=== PATIENT | male | born 1990 | race Caucasian/White ===

== ENCOUNTER 2016-09-15 17:59 | Inpatient (IN) | payer MEDICARE, OTHER ==
[~2016-09-15] VITALS: Ht 175.3 cm; Wt 85.0 kg
[~2016-09-15 17:59] MED LIST: OXYC30TA PO; [UNRECOGNIZED DRUG - CODE] INJ; [UNRECOGNIZED DRUG - CODE] IV; [UNRECOGNIZED DRUG - OTHER] INJ
[2016-09-15 18:02] VITALS: PULSE 126; RESP 24; TEMP 98.5; O2SAT 95
[2016-09-15 18:08] VITALS: BP 118/80
[2016-09-15] MEDS ORDERED: SODIUM CHLOR 0.9% 1000 ML INJ 1,000 ML IV SCH (18:31)
[2016-09-15] MEDS ORDERED: SODIUM CHLORIDE 0.9% FLUSH 5 ML FLUSH IVF PRN (18:45)
[2016-09-15] MEDS ORDERED: MORPHINE SULFATE 8 MG/ML INJ IV PUSH ONE (18:45)
[2016-09-15] MEDS ORDERED: ANTI-INHIBITOR COAGULANT COMPLEX 100 UNIT INJ IV ONE ×2 (19:00→19:45)
[2016-09-15] MEDS ORDERED: FACTOR VIIA (RECOMB) 5 MG VIAL IV PUSH ONE (19:00)
[2016-09-15] MEDS ORDERED: FACTOR VIIA (RECOMB) 1 MG VIAL IV PUSH ONE (19:00)
[2016-09-15] MEDS ORDERED: ALPR.25 PO (19:18)
[2016-09-15 19:25] VITALS: RESP 18; O2SAT 98
--- NOTE | 2016-09-15 20:30 | RADRPT ---
EXAM DATE/TIME: 09/15/2016 19:50 [facility] COMPARISON: No previous studies available for comparison. INDICATIONS : Short of breath. MEDICAL HISTORY : None. SURGICAL HISTORY : Port placement ENCOUNTER: Initial ACUITY: 1 day PAIN SCORE: 5/10 LOCATION: Bilateral chest FINDINGS: A single view of the chest demonstrates the lungs to be symmetrically aerated without evidence of mas s, infiltrate or effusion. The cardiomediastinal contours are unremarkable. Osseous structures are intact. There is a right internal jugular [id number] catheter with tip at the atriocaval junction. CONCLUSION: No evidence of acute cardiopulmonary disease. Ulysses Chowdhury MD on September 15, 2016 at 20:27 Board Certified Radiologist. This report was verified electronically.
[2016-09-15 20:52] LABS: BLOOD, URINE NEG (NEG); COMMENT (UR) CULT NOT INDICATED; CULTURE IF INDICATED CULT NOT INDICATED; GLUCOSE,URINE NEG (NEG); KETONE, URINE NEG (NEG); MUCUS URINE FEW /lpf (OCC); NITRITE,URINE NEG (NEG); SQUAMOUS EPITHELIAL CELL URINE <1 /hpf (0-5); URINE COLOR YELLOW (YELLW/STRAW)
[2016-09-15 20:58] LABS: AUTOMATED NEUTROPHIL # 8.2 TH/MM3 (1.8-7.7); BASOPHIL % 0.2 % (0.0-2.0); EOSINOPHIL # 0.3 TH/MM3 (0-0.4); EOSINOPHIL % 2.7 % (0.0-4.0); HEMATOCRIT 40.2 % (39.0-51.0); HEMO FLAGS DIFF FINAL; LYMPH % 14.7 % (9.0-44.0); LYMPHOCYTE # 1.6 TH/MM3 (1.0-4.8); MEAN CELL VOLUME 87.2 FL (80.0-100.0); MEAN CORPUSCULAR HEMOGLOBIN 30.3 PG (27.0-34.0); MEAN CORPUSCULAR HGB CONC 34.7 % (32.0-36.0); MONO % 7.5 % (0.0-8.0); NEUT % 74.9 % (16.0-70.0); PLATELET COUNT 233 TH/MM3 (150-450); RED BLOOD COUNT 4.61 MIL/MM3 (4.50-5.90); RED CELL DISTRIBUTION WIDTH 14.8 % (11.6-17.2); WHITE BLOOD COUNT 10.9 TH/MM3 (4.0-11.0)
[2016-09-15] MEDS: MORPHINE SULFATE 100 MG CONTROLLED RELEASE TAB PO SCH (21:00)
[2016-09-15 21:03] LABS: ANION GAP 7 MEQ/L (5-15); AST (GOT) 12 U/L (15-37); BICARBONATE 28.3 MEQ/L (21.0-32.0); BLOOD UREA NITROGEN 8 MG/DL (7-18); CHLORIDE 103 MEQ/L (98-107); GLOMERULAR FILTRATION RATE 185 ML/MIN (>89); POTASSIUM 3.6 MEQ/L (3.5-5.1); SODIUM (NA) 138 MEQ/L (136-145)
[2016-09-15 21:08] LABS: ALKALINE PHOSPHATASE 116 U/L (45-117); ALT (GPT) 31 U/L (12-78); TOTAL BILIRUBIN ADULT 0.8 MG/DL (0.2-1.0)
[2016-09-15] MEDS ORDERED: HYDROmorphone HCL PF 2 MG/ML VIAL IV PUSH ONE (21:15)
[2016-09-15] MEDS ORDERED: IOHEXOL 350 MG/ML 10 ML VIAL (for RAD DIAG) IV ONE (21:46)
--- NOTE | 2016-09-15 21:59 | RADRPT ---
EXAM DATE/TIME: 09/15/2016 21:30 [facility] COMPARISON: No previous studies available for comparison. INDICATIONS : Right lower back and hip pain. Evaluate for hemorrhage. IV CONTRAST: 95 cc Omnipaque 350 (iohexol) IV ORAL CONTRAST: No oral contrast ingested. RADIATION DOSE: 9.96 CTDIvol (mGy) MEDICAL HISTORY : Hemophilia SURGICAL HISTORY : None. ENCOUNTER: Initial ACUITY: 3 days PAIN SCALE: 8/10 LOCATION: Right lower quadrant back and hip TECHNIQUE: Volumetric scanning of the abdomen and pelvis was performed. Using automated exposure control and ad justment of the mA and/or kV according to patient size, radiation dose was kept as low as reasonably achievable to obtain optimal diagnostic quality images. FINDINGS: LOWER LUNGS: The visualized lower lungs are clear. LIVER: Homogeneous density without lesion. There is no dilation of the biliary tree. No calcified gallston es. SPLEEN: Normal size without lesion. PANCREAS: Within normal limits. KIDNEYS: Normal in size and shape. There is no mass, stone or hydronephrosis. ADRENAL GLANDS: Within normal limits. VASCULAR: There is no aortic aneurysm. BOWEL/MESENTERY: The stomach, small bowel, and colon demonstrate no acute abnormality. There is no free intraperitone al air or fluid. ABDOMINAL WALL: Within normal limits. RETROPERITONEUM: There is no lymphadenopathy. BLADDER: No wall thickening or mass. REPRODUCTIVE: Within normal limits. INGUINAL: There is no lymphadenopathy or hernia. MUSCULOSKELETAL: Disc space narrowing with osseous ridging and suspected left lateral ankylosis seen in the lumbar spi ne at L4/L5. The severe, chronic arthropathy seen of the right hip joint and with a 2 cm anterior sveta nt body and large marginal osteophytes. There is flattening/remodeling of the humeral head and acetab ulum. CONCLUSION: 1. No acute abnormality seen within the abdomen or pelvis. 2. Chronic disc centered degenerative changes at L4/L5. There is associated prominent left anterolate ral osseous ridging and probable partial ankylosis. 3. Severe right hip osteoarthritis with a joint body. The arthropathy appears chronic. It may be rela caitie to AVN/childhood [id number] or be posttraumatic. 4. I don't see an acute bony abnormality. Ulysses Chowdhury MD on September 15, 2016 at 21:54 Board Certified Radiologist. This report was verified electronically.
--- NOTE | 2016-09-15 22:14 | PD ---
HPI Chief Complaint: Bleeding Time Seen by Provider: 18:14 Travel History International Travel<30 days: No Contact w/Intl Traveler<30days: No Traveled to known affect area: No History of Present Illness HPI patient is a 26-year-old male presents emergency department for evaluation of left knee swelling left hand bruising anterior chest wall bruising abdominal pain. 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 Patient is followed by Dr. Anne hematology oncology service. Patient is on Feiba 7500 units every 24 hours as well as NovoSeven 10 mg every 24 hours for prophylaxis. When his bleeding worsens he takes NovoSeven 10 mg every 4 hours and Feiba 7500 units every 8 hours. Patient is been doing this for the past 2-1/2 days. His last dose of NovoSeven was at noon prior to arrival and his last dose of Feiba was at 2200 last night. Patient also relates a history of having a hematoma on his psoas muscle and is concerned that it might be coming back. Denies any blood in the urine. Denies any hand injury. Has a history of hemarthrosis of the left knee. PFSH Past Medical History Arthritis: Yes Blood Disorders: Yes (HEMOPHILIA A ) Diminished Hearing: No Tetanus Vaccination: > 5 Years Influenza Vaccination: No Past Surgical History Other Surgery: Yes (MEDIPORT, I&D LEFT KNEE ) Social History Alcohol Use: No Tobacco Use: Yes (1 PPD ) Substance Use: No Allergies-Medications (Allergen,Severity, Reaction): Coded Allergies: Nonsteroidal Anti-Inflammatory Agts (Verified Adverse Reaction, Severe, bleeding, 09/15/16) Reported Meds & Prescriptions Reported Meds & Active Scripts Active Oxycodone (Oxycodone HCl) 30 Mg Tab 30 Mg PO Q12 PRN Novoseven Rt Inj (Factor VIIa (Recombinant)) 1 Mg Inj 10 Mcg IV EVERY OTHER DAY 12 Days Reported Xanax (Alprazolam) 0.25 Mg Tab 0.25 Mg PO BID PRN Feiba NF Inj (Antiinhibitor Coagulant Complex Inj) 500 Units Inj 7,342 Units INJ EVERY OTHER DAY Review of Systems Except as stated in HPI: all other systems reviewed are Neg Physical Exam Narrative GENERAL: Well-developed well-nourished appears uncomfortable. SKIN: Warm and dry. HEAD: Atraumatic. Normocephalic. EYES: Pupils equal and round. No scleral icterus. No injection or drainage. ENT: No nasal bleeding or discharge. Mucous membranes pink and moist. NECK: Trachea midline. No JVD. CARDIOVASCULAR: Regular rate and rhythm. No murmur appreciated. Right-sided port is clean dry and intact no signs of infection. RESPIRATORY: No accessory muscle use. Clear to auscultation. Breath sounds equal bilaterally. GASTROINTESTINAL: Abdomen soft, non-tender, nondistended. Hepatic and splenic margins not palpable. MUSCULOSKELETAL: Patient has some nonspecific and mild swelling and bruising to the dorsum of the left hand, pulses motor and sensory intact, compartments are soft, he is able to range his fingers and flexion and extension at all joints albeit with some limitation secondary to pain and swelling. Right hand is normal. Remainder of the upper extremity exam is within normal limits. Patient has joint effusion of the left knee with midline surgical scar, remainder of the lower extremity exams are within normal limits. Axial skeleton shows no midline tenderness at CT or L-spine. Patient does have some ecchymosis on the anterior chest wall the right side. NEUROLOGICAL: Awake and alert. No obvious cranial nerve deficits. Motor grossly within normal limits. Normal speech. PSYCHIATRIC: Appropriate mood and affect; insight and judgment normal. Data Data Last Documented VS Vital Signs Date Time Temp Pulse Resp B/P Pulse Ox O2 Delivery O2 Flow Rate FiO2 09/15/16 19:26 101 18 98 Room Air 09/15/16 18:08 118/80 09/15/16 18:02 98.5 Orders Complete Blood Count With Diff (09/15/16 18:31) Comprehensive Metabolic Panel (09/15/16 18:31) Lipase (09/15/16 18:31) Lactic Acid (09/15/16 18:31) Prothrombin Time / Inr (Pt) (09/15/16 18:31) Act Partial Throm Time (Ptt) (09/15/16 18:31) Urinalysis - C+S If Indicated (09/15/16 18:31) Ct Abd/Pel W Iv Contrast(Rout) (09/15/16 18:31) Iv Access Insert/Monitor (09/15/16 18:31) Ecg Monitoring (09/15/16 18:31) Oximetry (09/15/16 18:31) Sodium Chlor 0.9% 1000 Ml Inj (Ns 1000 M (09/15/16 18:31) Sodium Chloride 0.9% Flush (Ns Flush) (09/15/16 18:45) Morphine Inj (Morphine Inj) (09/15/16 18:45) Factor Viia (Recomb) Inj (Novoseven Rt I (09/15/16 19:00) Anti-Inhibitor Coag Cmplx Inj (Feiba Nf (09/15/16 19:00) Factor Viia (Recomb) Inj (Novoseven Rt I (09/15/16 19:00) Chest, Single Ap (09/15/16 ) Anti-Inhibitor Coag Cmplx Inj (Feiba Nf (09/15/16 19:45) Morphine Sr (Oramorph Sr) (09/15/16 21:00) Oxycodone (Roxicodone) (09/15/16 20:15) Alprazolam (Xanax) (09/15/16 22:00) Hydromorphone Pf Inj (Dilaudid Pf Inj) (09/15/16 21:15) Consult Hematology (09/15/16 ) Iohexol 350 Inj (Omnipaque 350 Inj) (09/15/16 21:46) Vital Signs (Adult) Q4H (09/15/16 22:08) Activity Oob With Assistance (09/15/16 22:08) [employer] Operator / Telemetry .CONTINUOUS (09/15/16 22:08) Diet Heart Healthy (09/16/16 Breakfast) Sodium Chloride 0.9% Flush (Ns Flush) (09/15/16 22:15) Sodium Chloride 0.9% Flush (Ns Flush) (09/16/16 09:00) Basic Metabolic Panel (Bmp) (09/16/16 06:00) Complete Blood Count With Diff (09/16/16 06:00) Pt Request For Service (09/15/16 22:08) Naloxone Inj (Narcan Inj) (09/15/16 22:15) Place In Observation (09/15/16 ) Admit Order (Ed Use Only) (09/15/16 ) Labs Laboratory Tests Test 09/15/16 09/15/16 09/15/16 20:00 20:15 22:00 Urine Color YELLOW Urine Turbidity CLEAR Urine pH 7.0 Urine Specific [place] 1.016 Urine Protein NEG mg/dL Urine Glucose (UA) NEG mg/dL Urine Ketones NEG mg/dL Urine Occult Blood NEG Urine Nitrite NEG Urine Bilirubin NEG Urine Urobilinogen LESS THAN 2.0 MG/DL Urine Leukocyte Esterase NEG Urine RBC LESS THAN 1 /hpf Urine WBC LESS THAN 1 /hpf Urine Squamous Epithelial <1 /hpf Cells Urine Amorphous Sediment RARE Urine Mucus FEW /lpf Microscopic Urinalysis Comment CULT NOT INDICATED White Blood Count 10.9 TH/MM3 Red Blood Count 4.61 MIL/MM3 Hemoglobin 13.9 GM/DL Hematocrit 40.2 % Mean Corpuscular Volume 87.2 FL Mean Corpuscular Hemoglobin 30.3 PG Mean Corpuscular Hemoglobin 34.7 % Concent Red Cell Distribution Width 14.8 % Platelet Count 233 TH/MM3 Mean Platelet Volume 7.9 FL Neutrophils (%) (Auto) 74.9 % Lymphocytes (%) (Auto) 14.7 % Monocytes (%) (Auto) 7.5 % Eosinophils (%) (Auto) 2.7 % Basophils (%) (Auto) 0.2 % Neutrophils # (Auto) 8.2 TH/MM3 Lymphocytes # (Auto) 1.6 TH/MM3 Monocytes # (Auto) 0.8 TH/MM3 Eosinophils # (Auto) 0.3 TH/MM3 Basophils # (Auto) 0.0 TH/MM3 CBC Comment DIFF FINAL Differential Comment Sodium Level 138 MEQ/L Potassium Level 3.6 MEQ/L Chloride Level 103 MEQ/L Carbon Dioxide Level 28.3 MEQ/L Anion Gap 7 MEQ/L Blood Urea Nitrogen 8 MG/DL Creatinine 0.54 MG/DL Estimat Glomerular Filtration 185 ML/MIN Rate Random Glucose 84 MG/DL Lactic Acid Level 0.6 mmol/L Calcium Level 8.9 MG/DL Total Bilirubin 0.8 MG/DL Aspartate Amino Transf 12 U/L (AST/SGOT) Alanine Aminotransferase 31 U/L (ALT/SGPT) Alkaline Phosphatase 116 U/L Total Protein 6.9 GM/DL Albumin 3.9 GM/DL Lipase 66 U/L Prothrombin Time 7.9 SEC Prothromb Time International 0.7 RATIO Ratio Activated Partial 68.8 SEC Thromboplast Time MDM Medical Decision Making Medical Screen Exam Complete: Yes Emergency Medical Condition: Yes Differential Diagnosis Hemophilia A, hemarthrosis, intra-abdominal bleeding, abdominal pain, Narrative Course Patient is a 26-year-old male with a history of hemophilia A presents for a 2-1/ 2 day history of swelling to his left knee as well as abdominal pain. Patient normally takes his prophylaxis for his hemophilia Feiba 7500 units every 24 hours and NovoSeven 10 mg every 24 hours. Last 24 hours Impressions Abdomen/Pelvis CT 09/15/16 1831 Signed Impressions: Service Date/Time: Thursday, September 15, 2016 21:30 - CONCLUSION: 1. No acute abnormality seen within the abdomen or pelvis. 2. Chronic disc centered degenerative changes at L4/L5. There is associated prominent left anterolateral osseous ridging and probable partial ankylosis. 3. Severe right hip osteoarthritis with a joint body. The arthropathy appears chronic. It may be related to AVN/childhood [id number]-[id number] or be posttraumatic. 4. I don't see an acute bony abnormality. Ulysses Chowdhury MD Chest X-Ray 09/15/16 0000 Signed Impressions: Service Date/Time: Thursday, September 15, 2016 19:50 - CONCLUSION: No evidence of acute cardiopulmonary disease. Ulysses Chowdhury MD For the past 2-1/2 days patient's been taken NovoSeven 10 mg every 4 hours and Feiba 7500 units every 8 hours. Patient was discussed with Dr. Dominguez who recommends continuing NovoSeven 10 mg every 4 hours and increasing Feiba to [address] Dominguez agrees with admission. Patient was discussed with Dr. Loza per Diagnosis Primary Impression: Abdominal pain Qualified Code: R10.11 - Right upper quadrant abdominal pain Additional Impressions: Hemarthrosis Hemophilia A Admitting Information Admitting Physician Requests: Admit Condition: Stable Jigar Pantoja MD Sep 15, 2016 22:14
[2016-09-15] MEDS ORDERED: NALOXONE HCL 0.4 MG/ML AMP IV PRN (22:15)
[2016-09-15] MEDS ORDERED: SODIUM CHLORIDE 0.9% FLUSH 5 ML FLUSH FLUSH PRN (22:15)
[2016-09-15] MEDS: ALPRAZolam 0.5 MG TAB PO SCH (22:16)
[2016-09-15 23:19] LABS: APTT (PATIENT) 68.8 SEC (24.3-30.1); INTERNATIONAL NORMALIZED RATIO 0.7 RATIO; PROTHROMBIN TIME - PATIENT 7.9 SEC (9.8-11.6)
[2016-09-16] VITALS (8 sets, daily range): BP systolic 113–145; BP diastolic 60–103; PULSE 82–100; RESP 17–20; TEMP 96.4–98.1; O2SAT 96–99
[2016-09-16] MEDS ORDERED: HYDROmorphone HCL PF 1 MG/ML VIAL IV PUSH ONE ×2 (00:15→21:30)
[2016-09-16] MEDS ORDERED: HYDROmorphone HCL PF 1 MG/ML VIAL IV PUSH PRN (01:30)
--- NOTE | 2016-09-16 05:23 | HHI.HP ---
[facility] No Primary Care Physician Admission Diagnosis Hemophilia A, Hemarthrosis. Diagnoses: (1) Hemophilia A (2) Hemarthrosis (3) History of stomach ulcers Chief Complaint: joint pain and swelling Travel History International Travel<30 Days: No Contact w/Intl Traveler <30 Da: No Traveled to Known Affected Are: No History of Present Illness Mr. Gonzalez is a 26-year-old male with past medical history of hemophilia A with intolerance to factor VIII replacement and arthritis who presents to the emergency room on 09/15/2016 for evaluation of left knee pain/swelling, left ankle pain/swelling, right hip pain/swelling, and right lower back pain and swelling. Abdomen/pelvis CT with no acute abnormalities seen; chronic disc centered changes at L4/L5; severe right hip osteoarthritis. The patient is seen in his hospital room. He complains of severe right hip, left knee, and left ankle pain with swelling. He had been medicated with Dilaudid 1 mg IV approximately 30 minutes prior to arrival without relief. Pain level is 10 out of 10. He has admitted tolerance to opioids due to the long-standing nature of his chronic pain and necessitating increasing opioid doses for management. He is very familiar and knowledgeable with his disease process and treatment and states he knows how he feels when he is "bleeding into his joints" and this is how he feels currently. He states that symptoms have been going on over the past 3 days. He reports chronic smoker's cough per patient; denies hemoptysis, epistaxis, hematuria, bloody or black stools. He denies fevers, shortness of breath. He denies diabetes mellitus, hypertension, cardiac problems, breathing problems , liver or kidney problems, hepatitis, thyroid dysfunction, seizures, or cancers. Review of Systems Except as stated in HPI: all other systems reviewed are Neg Past Family Social History Past Medical History Hemophilia A with intolerance to factor VIII replacement Arthritis Hemarthrosis related to degenerative joint disease Anxiety Stomach ulcers . Past Surgical History 3 [id number] placed Compartment syndrome fasciotomy right forearm Left femoral fracture with ORIF 2010 Left knee radiation synovectomy in 2000 I & D knee . Reported Medications Reported Meds & Active Scripts Active Oxycodone (Oxycodone HCl) 30 Mg Tab 30 Mg PO Q12 PRN Novoseven Rt Inj (Factor VIIa (Recombinant)) 1 Mg Inj 10 Mcg IV EVERY OTHER DAY 12 Days Reported Xanax (Alprazolam) 0.25 Mg Tab 0.25 Mg PO BID PRN Feiba NF Inj (Antiinhibitor Coagulant Complex Inj) 500 Units Inj 7,342 Units INJ EVERY OTHER DAY . Allergies: Coded Allergies: Nonsteroidal Anti-Inflammatory Agts (Verified Adverse Reaction, Severe, bleeding, 09/15/16) Active Ordered Medications Current Medications Sodium Chloride (NS 1000 ml Inj) 1,000 ml @ 1,000 mls/hr Q1H IV Last administered on 09/15/16 18:31; Start 09/15/16 at 18:31; Stop 09/15/16 at 19:30 ; Status DC IV Flush (NS Flush) 2 ml UNSCH PRN IVF FLUSH AFTER USING IV ACCESS; Start 09/15 at 18:45 Morphine Sulfate (Morphine Inj) 5 mg ONCE ONCE IV PUSH Last administered on 18:45; Start 09/15/16 at 18:45; Stop 09/15/16 at 18:46; Status DC Factor VII (Pha) (Novoseven Rt Inj) 10 mg ONCE ONCE IV PUSH ; Start 09/15/16 at 19:00; Stop 09/15/16 at 19:00; Status DC Anti-Inhibitor Coagulant Complex (Feiba Nf Inj) 15,000 units ONCE ONCE IV ; Start 09/15/16 at 19:00; Stop 09/15/16 at 19:41; Status DC Factor VII (Pha) (Novoseven Rt Inj) 10 mg ONCE ONCE IV PUSH Last administered on 09/15/16 20:43; Start 09/15/16 at 19:00; Stop 09/15/16 at 19:01; Status DC Anti-Inhibitor Coagulant Complex (Feiba Nf Inj) 7,500 units ONCE ONCE IV Last administered on 09/15/16 19:45; Start 09/15/16 at 19:45; Stop 09/15/16 at 19:46 ; Status DC Morphine Sulfate (Oramorph Sr) 100 mg Q12HR PO Last administered on 09/15/16 21:00; Start 09/15/16 at 21:00 Oxycodone HCl (Roxicodone) 30 mg Q4H PRN PO PAIN SCALE 4 TO 10 Last administered on 09/16/16 01:59; Start 09/15/16 at 20:15 Alprazolam (Xanax) 0.5 mg Q8HR PO Last administered on 09/15/16 22:16; Start 09/15/16 at 22:00 Hydromorphone HCl (Dilaudid Pf Inj) 2 mg ONCE ONCE IV PUSH Last administered on 09/15/16 21:20; Start 09/15/16 at 21:15; Stop 09/15/16 at 21:16; Status DC Iohexol (Omnipaque 350 Inj) 100 ml STK-MED ONCE IV Last administered on 21:46; Start 09/15/16 at 21:46; Stop 09/15/16 at 21:47; Status DC IV Flush (NS Flush) 2 ml UNSCH PRN FLUSH FLUSH AFTER USING IV ACCESS; Start at 22:15 IV Flush (NS Flush) 2 ml BID FLUSH ; Start 09/16/16 at 09:00 Naloxone HCl (Narcan Inj) 0.4 mg UNSCH PRN IV SEE LABEL COMMENTS; Start at 22:15 Hydromorphone HCl (Dilaudid Pf Inj) 1 mg ONCE ONCE IV PUSH Last administered on 09/16/16 00:42; Start 09/16/16 at 00:15; Stop 09/16/16 at 00:16; Status DC Hydromorphone HCl (Dilaudid Pf Inj) 1 mg Q4H PRN IV PUSH breakthrough pain Last administered on 09/16/16 04:35; Start 09/16/16 at 01:30; Stop 09/16/16 at 05:16; Status DC Nicotine (Nicotine Gum) 4 mg Q3HR PRN CHEW nicotine withdrawal; Start 09/16/16 at 01:30 Factor VII (Pha) (Novoseven Rt Inj) 10 mg Q4H IV PUSH ; Start 09/16/16 at 05:15 ; Status UNV Anti-Inhibitor Coagulant Complex (Feiba Nf Inj) 7,500 units Q6HR IV ; Start at 06:00; Status UNV Hydromorphone HCl (Dilaudid Pf Inj) 2 mg Q3HR PRN IV PUSH breakthrough pain; Start 09/16/16 at 05:25; Status UNV . Family History Patients mother is alive Patients father is alive 4/6 brothers with severe hemophilia A; one age 1818 years old - HIV/ Hemophilia; one other from brain hemorrhage . Social History Tobacco: Smokes 1 pack per day x 10 years Alcohol: occasionally Illicit Drugs: Denies Patient is originally from [facility] and relocated to [place] in the early part of June 2016 . Physical Exam Vital Signs Vital Signs Date Time Temp Pulse Resp B/P Pulse Ox O2 Delivery O2 Flow Rate FiO2 09/16/16 02:59 18 09/16/16 01:11 18 09/16/16 00:50 97.0 97 20 135/103 98 09/16/16 00:42 88 145/60 100 09/16/16 00:16 20 09/15/16 19:26 101 18 98 Room Air 09/15/16 19:25 18 98 Room Air 09/15/16 18:08 118/80 09/15/16 18:02 98.5 126 24 95 Room Air Physical Exam GENERAL: This is a well-nourished, well-developed patient, in no apparent distress. SKIN: No rashes or lesions. Cool and dry. Multiple tattoos on torso. HEAD: Atraumatic. Normocephalic. EYES: No scleral icterus. No injection or drainage. ENT: Nose without bleeding, purulent drainage. NECK: Trachea midline. No JVD or lymphadenopathy. CARDIOVASCULAR: Regular rate and rhythm without murmurs, gallops, or rubs. RESPIRATORY: Clear to auscultation. Breath sounds equal bilaterally. No wheezes , rales, or rhonchi. GASTROINTESTINAL: Abdomen soft, non-tender, nondistended. No guarding. MUSCULOSKELETAL: Extremities without clubbing, cyanosis. Swelling noted from left knee down to left ankle; right hip pain and swelling; slight swelling right lower back/painful NEUROLOGICAL: Awake and alert. Motor and sensory grossly within normal limits. Normal speech. . Laboratory Laboratory Tests Test 09/15/16 09/15/16 09/15/16 20:00 20:15 22:00 Urine Color YELLOW Urine Turbidity CLEAR Urine pH 7.0 Urine Specific [place] 1.016 Urine Protein NEG Urine Glucose (UA) NEG Urine Ketones NEG Urine Occult Blood NEG Urine Nitrite NEG Urine Bilirubin NEG Urine Urobilinogen LESS THAN 2.0 Urine Leukocyte Esterase NEG Urine RBC LESS THAN 1 Urine WBC LESS THAN 1 Urine Squamous Epithelial <1 Cells Urine Amorphous Sediment RARE Urine Mucus FEW Microscopic Urinalysis Comment CULT NOT INDICATED White Blood Count 10.9 Red Blood Count 4.61 Hemoglobin 13.9 Hematocrit 40.2 Mean Corpuscular Volume 87.2 Mean Corpuscular Hemoglobin 30.3 Mean Corpuscular Hemoglobin 34.7 Concent Red Cell Distribution Width 14.8 Platelet Count 233 Mean Platelet Volume 7.9 Neutrophils (%) (Auto) 74.9 Lymphocytes (%) (Auto) 14.7 Monocytes (%) (Auto) 7.5 Eosinophils (%) (Auto) 2.7 Basophils (%) (Auto) 0.2 Neutrophils # (Auto) 8.2 Lymphocytes # (Auto) 1.6 Monocytes # (Auto) 0.8 Eosinophils # (Auto) 0.3 Basophils # (Auto) 0.0 CBC Comment DIFF FINAL Differential Comment Sodium Level 138 Potassium Level 3.6 Chloride Level 103 Carbon Dioxide Level 28.3 Anion Gap 7 Blood Urea Nitrogen 8 Creatinine 0.54 Estimat Glomerular Filtration 185 Rate Random Glucose 84 Lactic Acid Level 0.6 Calcium Level 8.9 Total Bilirubin 0.8 Aspartate Amino Transf 12 (AST/SGOT) Alanine Aminotransferase 31 (ALT/SGPT) Alkaline Phosphatase 116 Total Protein 6.9 Albumin 3.9 Lipase 66 Prothrombin Time 7.9 Prothromb Time International 0.7 Ratio Activated Partial 68.8 Thromboplast Time Result Diagram: 09/15/16201409/15/162014 Imaging Last Impressions Abdomen/Pelvis CT 09/15/16 1831 Signed Impressions: Service Date/Time: Thursday, September 15, 2016 21:30 - CONCLUSION: 1. No acute abnormality seen within the abdomen or pelvis. 2. Chronic disc centered degenerative changes at L4/L5. There is associated prominent left anterolateral osseous ridging and probable partial ankylosis. 3. Severe right hip osteoarthritis with a joint body. The arthropathy appears chronic. It may be related to AVN/childhood [id number]-[id number] or be posttraumatic. 4. I don't see an acute bony abnormality. Ulysses Chowdhury MD Chest X-Ray 09/15/16 0000 Signed Impressions: Service Date/Time: Thursday, September 15, 2016 19:50 - CONCLUSION: No evidence of acute cardiopulmonary disease. Ulysses Chowdhury MD . Assessment and Plan Problem List: (1) Hemophilia A ICD Code: D66 Status: Acute (2) Hemarthrosis ICD Code: M25.00 Status: Acute (3) History of stomach ulcers ICD Code: Z87.19 Status: Resolved Assessment and Plan Hemarthrosis Hemophilia A - consult Dr. Harris - Dilaudid 2 mg IV every 3 hours as needed for pain - Dr. Harris has continued patients home pain medications - Vital signs every 4 hours - Novoseven 10 mg IV q4h - to be started 09/17 at midnight alternated with: - Feiba 7500 units IV q6h started today Tobacco abuse - Counseled regarding cessation - Nicotine gum every 3 hours as needed for nicotine withdrawal History of stomach ulcers - Added Protonix 40 mg by mouth daily Written by Linette Baxter, acting as scribe for Dr. Diane on 09/16/16 at 05:10. The documentation accurately reflects the work performed [id number] by me on at 0510 Discussed Condition With ER physician, RN, and patient . Linette Baxter Sep 16, 2016 05:23 Ramin Diane MD Sep 16, 2016 08:38
[2016-09-16] MEDS: ALPRAZolam 0.5 MG TAB PO SCH ×3 (05:32→20:43)
[2016-09-16] MEDS: HYDROmorphone HCL PF 1 MG/ML VIAL IV PUSH PRN ×4 (05:32→21:36)
[2016-09-16] MEDS: NICOTINE 4 MG/GUM CHEW PRN ×2 (05:43→08:21)
[2016-09-16] MEDS ORDERED: FACTOR VIIA (RECOMB) 1 MG VIAL IV PUSH SCH (06:00)
[2016-09-16] MEDS ORDERED: ANTI-INHIBITOR COAGULANT COMPLEX 100 UNIT INJ IV SCH (07:00)
[2016-09-16 07:34] LABS: BASOPHIL % 0.4 % (0.0-2.0); EOSINOPHIL # 0.4 TH/MM3 (0-0.4); EOSINOPHIL % 3.8 % (0.0-4.0); HEMATOCRIT 39.8 % (39.0-51.0); HEMO FLAGS DIFF FINAL; LYMPHOCYTE # 2.8 TH/MM3 (1.0-4.8); MEAN CELL VOLUME 88.8 FL (80.0-100.0); MEAN CORPUSCULAR HEMOGLOBIN 30.1 PG (27.0-34.0); MEAN CORPUSCULAR HGB CONC 33.9 % (32.0-36.0); MONO % 8.7 % (0.0-8.0); NEUT % 59.1 % (16.0-70.0); PLATELET COUNT 212 TH/MM3 (150-450); RED BLOOD COUNT 4.48 MIL/MM3 (4.50-5.90); RED CELL DISTRIBUTION WIDTH 14.6 % (11.6-17.2); WHITE BLOOD COUNT 10.1 TH/MM3 (4.0-11.0)
[2016-09-16 08:00] LABS: BICARBONATE 28.7 MEQ/L (21.0-32.0); POTASSIUM 3.9 MEQ/L (3.5-5.1)
[2016-09-16] MEDS: MORPHINE SULFATE 100 MG CONTROLLED RELEASE TAB PO SCH ×2 (08:05→20:44)
[2016-09-16] MEDS: PANTOPRAZOLE SOD 40 MG DELAYED RELEASE TAB PO SCH (08:05)
--- NOTE | 2016-09-16 08:15 | PD.ONC.PN ---
Subjective Subjective Remarks Reports severe pain in the left knee, right hip and right flank. Last factor dose was FEIBA 7500 units last night. Pain continues. CT abdomen reviewed, no measurable bleed. Hemoglobin and hematocrit were noted to be within normal limits last night. Objective Data Date Time Temp Pulse Resp B/P Pulse Ox O2 Delivery O2 Flow Rate FiO2 09/16/16 07:03 18 09/16/16 06:03 18 09/16/16 05:05 18 09/16/16 04:00 97.0 87 17 113/78 98 09/16/16 01:11 18 09/16/16 00:50 97.0 97 20 135/103 98 09/16/16 00:42 88 145/60 100 09/16/16 00:16 20 09/15/16 19:26 101 18 98 Room Air 09/15/16 19:25 18 98 Room Air 09/15/16 18:08 118/80 09/15/16 18:02 98.5 126 24 95 Room Air Result Diagram: 09/16/16 0606 09/16/16 0606 Laboratory Results Laboratory Tests Test 09/15/16 09/15/16 09/15/16 09/16/16 20:00 20:15 22:00 06:06 Urine Color YELLOW Urine Turbidity CLEAR Urine pH 7.0 Urine Specific [place] 1.016 Urine Protein NEG mg/dL Urine Glucose (UA) NEG mg/dL Urine Ketones NEG mg/dL Urine Occult Blood NEG Urine Nitrite NEG Urine Bilirubin NEG Urine Urobilinogen LESS THAN 2.0 MG/DL Urine Leukocyte Esterase NEG Urine RBC LESS THAN 1 /hpf Urine WBC LESS THAN 1 /hpf Urine Squamous Epithelial <1 /hpf Cells Urine Amorphous Sediment RARE Urine Mucus FEW /lpf Microscopic Urinalysis Comment CULT NOT INDICATED White Blood Count 10.9 TH/MM3 10.1 TH/MM3 Red Blood Count 4.61 MIL/MM3 4.48 MIL/MM3 Hemoglobin 13.9 GM/DL 13.5 GM/DL Hematocrit 40.2 % 39.8 % Mean Corpuscular Volume 87.2 FL 88.8 FL Mean Corpuscular Hemoglobin 30.3 PG 30.1 PG Mean Corpuscular Hemoglobin 34.7 % 33.9 % Concent Red Cell Distribution Width 14.8 % 14.6 % Platelet Count 233 TH/MM3 212 TH/MM3 Mean Platelet Volume 7.9 FL 7.6 FL Neutrophils (%) (Auto) 74.9 % 59.1 % Lymphocytes (%) (Auto) 14.7 % 28.0 % Monocytes (%) (Auto) 7.5 % 8.7 % Eosinophils (%) (Auto) 2.7 % 3.8 % Basophils (%) (Auto) 0.2 % 0.4 % Neutrophils # (Auto) 8.2 TH/MM3 6.0 TH/MM3 Lymphocytes # (Auto) 1.6 TH/MM3 2.8 TH/MM3 Monocytes # (Auto) 0.8 TH/MM3 0.9 TH/MM3 Eosinophils # (Auto) 0.3 TH/MM3 0.4 TH/MM3 Basophils # (Auto) 0.0 TH/MM3 0.0 TH/MM3 CBC Comment DIFF FINAL DIFF FINAL Differential Comment Sodium Level 138 MEQ/L 137 MEQ/L Potassium Level 3.6 MEQ/L 3.9 MEQ/L Chloride Level 103 MEQ/L 100 MEQ/L Carbon Dioxide Level 28.3 MEQ/L 28.7 MEQ/L Anion Gap 7 MEQ/L 8 MEQ/L Blood Urea Nitrogen 8 MG/DL 5 MG/DL Creatinine 0.54 MG/DL 0.50 MG/DL Estimat Glomerular Filtration 185 ML/MIN 203 ML/MIN Rate Random Glucose 84 MG/DL 102 MG/DL Lactic Acid Level 0.6 mmol/L Calcium Level 8.9 MG/DL 8.9 MG/DL Total Bilirubin 0.8 MG/DL Aspartate Amino Transf 12 U/L (AST/SGOT) Alanine Aminotransferase 31 U/L (ALT/SGPT) Alkaline Phosphatase 116 U/L Total Protein 6.9 GM/DL Albumin 3.9 GM/DL Lipase 66 U/L Prothrombin Time 7.9 SEC Prothromb Time International 0.7 RATIO Ratio Activated Partial 68.8 SEC Thromboplast Time Imaging Studies Last 24 hours Impressions Abdomen/Pelvis CT 09/15/16 1831 Signed Impressions: Service Date/Time: Thursday, September 15, 2016 21:30 - CONCLUSION: 1. No acute abnormality seen within the abdomen or pelvis. 2. Chronic disc centered degenerative changes at L4/L5. There is associated prominent left anterolateral osseous ridging and probable partial ankylosis. 3. Severe right hip osteoarthritis with a joint body. The arthropathy appears chronic. It may be related to AVN/childhood Pncb-Coal-Lgmwljt or be posttraumatic. 4. I don't see an acute bony abnormality. Ulysses Chowdhury MD Administered Medications Medications (Trade) Dose Ordered Sig/Mike Route PRN Reason Start Time Stop Time Status Last Admin Dose Admin Morphine Sulfate (Oramorph Sr) 100 mg Q12HR PO 09/15/16 21:00 09/15/16 21:00 Oxycodone HCl (Roxicodone) 30 mg Q4H PRN PO PAIN SCALE 4 TO 10 09/15/16 20:15 09/16/16 06:03 Alprazolam (Xanax) 0.5 mg Q8HR PO 09/15/16 22:00 09/16/16 05:32 Nicotine (Nicotine Gum) 4 mg Q3HR PRN CHEW nicotine withdrawal 09/16/16 01:30 09/16/16 05:43 Hydromorphone HCl (Dilaudid Pf Inj) 2 mg Q3HR PRN IV PUSH breakthrough pain 09/16/16 05:25 09/16/16 05:32 Objective Remarks GENERAL: Young male sitting up at the side of the bed, arms folded across abdomen, in visible pain. SKIN: Warm and dry. HEAD: Normocephalic. EYES: No scleral icterus. No injection or drainage. NECK: Supple, trachea midline. No JVD or lymphadenopathy. LYMPHATIC: No adenopathy. CARDIOVASCULAR: Regular rate and rhythm without murmurs. RESPIRATORY: Breath sounds equal bilaterally. No accessory muscle use. GASTROINTESTINAL: Soft, tender to deep palpation, no palpable organ enlargement. EXTREMITIES: Joints are swollen, specifically his left knee. MUSCULOSKELETAL: Adequate muscle tone. NEUROLOGICAL: No obvious focal deficit. Awake, alert, and oriented x3. PSYCHIATRIC: Appropriate mood and affect; insight and judgment normal. 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 He has extensive osseous collegial issues related to hemophilia secondary to recurrent bleeds. Patient reports having had progressive pain in multiple joints as well as in the abdomen over the past 3 days. He tells me he traveled up the [place] last week to meet with friends and family and since he began his return trip he has been in increasing pain. He attempted to control the pain with increased factor dosing at home; usually alternates FEIBA and NovoSeven which on this occasion was not sufficient in controlling the pain/bleeding. Plan 1. I would like to give him a dose of FEIBA 7500 units now (our pharmacy is out of this medication but the patient has brought his dosing from home) I did speak to the pharmacist in the IV room, they will mix the patient's home medication and added to the chart so he may get this medication JOHNY. Following this dose the patient will be reevaluated in 2-3 hours, if he does not have a noticeable improvement in his pain he will receive a single dose of NovoSeven 90 mcg/kg. Because he is actively bleeding, we will dose him more frequently to control the bleed. Continue pain control regimen, he is on high doses of opioids both long and short acting. Hematology a follow-up with you, I will recommend checking serial CBCs to rule out declining hemoglobin and hematocrit levels. Leno Adam MD Sep 16, 2016 08:15
[2016-09-16] MEDS ORDERED: [UNRECOGNIZED DRUG - OTHER] IV ONE (08:25)
[2016-09-16] MEDS: SODIUM CHLORIDE 0.9% FLUSH 5 ML FLUSH FLUSH SCH ×2 (09:00→20:43)
--- NOTE | 2016-09-16 09:34 | HHI.PR ---
Subjective Remarks f/u; left knee pain/ hemophilia still complaining of pain to the left knee and right hip. although he says that the pain is not ' as bad ' as last night. Objective Vitals Vital Signs Date Time Temp Pulse Resp B/P Pulse Ox O2 Delivery O2 Flow Rate FiO2 09/16/16 07:03 18 09/16/16 06:03 18 09/16/16 05:05 18 09/16/16 04:00 97.0 87 17 113/78 98 09/16/16 01:11 18 09/16/16 00:50 97.0 97 20 135/103 98 09/16/16 00:42 88 145/60 100 09/16/16 00:16 20 09/15/16 19:26 101 18 98 Room Air 09/15/16 19:25 18 98 Room Air 09/15/16 18:08 118/80 09/15/16 18:02 98.5 126 24 95 Room Air I/O 09/15/16 09/15/16 09/15/16 09/16/16 09/16/16 09/16/16 07:00 15:00 23:00 07:00 15:00 23:00 Intake Total 900 ml 360 ml Output Total 850 ml 1000 ml Balance 50 ml -640 ml Intake Oral 900 ml 360 ml Output Urine Total 850 ml 1000 ml Result Diagram: 09/16/16 0606 09/16/16 0606 Imaging Last Impressions Abdomen/Pelvis CT 09/15/16 1831 Signed Impressions: Service Date/Time: Thursday, September 15, 2016 21:30 - CONCLUSION: 1. No acute abnormality seen within the abdomen or pelvis. 2. Chronic disc centered degenerative changes at L4/L5. There is associated prominent left anterolateral osseous ridging and probable partial ankylosis. 3. Severe right hip osteoarthritis with a joint body. The arthropathy appears chronic. It may be related to AVN/childhood Irwa-Ptab-Smfsqad or be posttraumatic. 4. I don't see an acute bony abnormality. Ulysses Chowdhury MD Chest X-Ray 09/15/16 0000 Signed Impressions: Service Date/Time: Thursday, September 15, 2016 19:50 - CONCLUSION: No evidence of acute cardiopulmonary disease. Ulysses Chowdhury MD Objective Remarks GENERAL: This is a well-nourished, well-developed patient, in no apparent distress. CARDIOVASCULAR: Regular rate and regular rhythm without murmurs, gallops, or rubs. RESPIRATORY: Clear to auscultation. Breath sounds equal bilaterally. No wheezes , rales, or rhonchi. GASTROINTESTINAL: Abdomen soft, non-tender, nondistended. Normal, active bowel sounds MUSCULOSKELETAL: left knee is swollen and warm to touch NEURO: Alert & Oriented x4 to person, place, time, situation. Moves all ext x4 Medications and IVs Current Medications Sodium Chloride (NS 1000 ml Inj) 1,000 ml @ 1,000 mls/hr Q1H IV Last administered on 09/15/16 18:31; Start 09/15/16 at 18:31; Stop 09/15/16 at 19:30 ; Status DC IV Flush (NS Flush) 2 ml UNSCH PRN IVF FLUSH AFTER USING IV ACCESS; Start 09/15 at 18:45 Morphine Sulfate (Morphine Inj) 5 mg ONCE ONCE IV PUSH Last administered on 18:45; Start 09/15/16 at 18:45; Stop 09/15/16 at 18:46; Status DC Factor VII (Pha) (Novoseven Rt Inj) 10 mg ONCE ONCE IV PUSH ; Start 09/15/16 at 19:00; Stop 09/15/16 at 19:00; Status DC Anti-Inhibitor Coagulant Complex (Feiba Nf Inj) 15,000 units ONCE ONCE IV ; Start 09/15/16 at 19:00; Stop 09/15/16 at 19:41; Status DC Factor VII (Pha) (Novoseven Rt Inj) 10 mg ONCE ONCE IV PUSH Last administered on 09/15/16 20:43; Start 09/15/16 at 19:00; Stop 09/15/16 at 19:01; Status DC Anti-Inhibitor Coagulant Complex (Feiba Nf Inj) 7,500 units ONCE ONCE IV Last administered on 09/15/16 19:45; Start 09/15/16 at 19:45; Stop 09/15/16 at 19:46 ; Status DC Morphine Sulfate (Oramorph Sr) 100 mg Q12HR PO Last administered on 09/16/16 08:05; Start 09/15/16 at 21:00 Oxycodone HCl (Roxicodone) 30 mg Q4H PRN PO PAIN SCALE 4 TO 10 Last administered on 09/16/16 06:03; Start 09/15/16 at 20:15 Alprazolam (Xanax) 0.5 mg Q8HR PO Last administered on 09/16/16 05:32; Start 09/15/16 at 22:00 Hydromorphone HCl (Dilaudid Pf Inj) 2 mg ONCE ONCE IV PUSH Last administered on 09/15/16 21:20; Start 09/15/16 at 21:15; Stop 09/15/16 at 21:16; Status DC Iohexol (Omnipaque 350 Inj) 100 ml STK-MED ONCE IV Last administered on 21:46; Start 09/15/16 at 21:46; Stop 09/15/16 at 21:47; Status DC IV Flush (NS Flush) 2 ml UNSCH PRN FLUSH FLUSH AFTER USING IV ACCESS; Start at 22:15 IV Flush (NS Flush) 2 ml BID FLUSH ; Start 09/16/16 at 09:00 Naloxone HCl (Narcan Inj) 0.4 mg UNSCH PRN IV SEE LABEL COMMENTS; Start at 22:15 Hydromorphone HCl (Dilaudid Pf Inj) 1 mg ONCE ONCE IV PUSH Last administered on 09/16/16 00:42; Start 09/16/16 at 00:15; Stop 09/16/16 at 00:16; Status DC Hydromorphone HCl (Dilaudid Pf Inj) 1 mg Q4H PRN IV PUSH breakthrough pain Last administered on 09/16/16 04:35; Start 09/16/16 at 01:30; Stop 09/16/16 at 05:16; Status DC Nicotine (Nicotine Gum) 4 mg Q3HR PRN CHEW nicotine withdrawal Last administered on 09/16/16 08:21; Start 09/16/16 at 01:30 Factor VII (Pha) (Novoseven Rt Inj) 10 mg Q4H IV PUSH ; Start 09/16/16 at 06:00 ; Stop 09/16/16 at 06:00; Status DC Anti-Inhibitor Coagulant Complex (Feiba Nf Inj) 7,500 units Q6HR IV ; Start at 07:00; Stop 09/16/16 at 08:25; Status DC Hydromorphone HCl (Dilaudid Pf Inj) 2 mg Q3HR PRN IV PUSH breakthrough pain Last administered on 09/16/16 08:21; Start 09/16/16 at 05:25 Factor VII (Pha) (Novoseven Rt Inj) 10 mg Q4H IV PUSH ; Start 09/17/16 at 00:00 Pantoprazole Sodium (Protonix) 40 mg DAILY PO Last administered on 09/16/16 08 :05; Start 09/16/16 at 09:00 Patient Own Medication 7,500 ea ONCE ONCE IV ; Start 09/16/16 at 08:25; Stop at 08:26; Status DC A/P Assessment and Plan A/P Hemarthrosis Hemophilia A -resumed home pain regimen - Dilaudid 2 mg IV every 3 hours as needed for pain - Vital signs every 4 hours - Novoseven 10 mg IV q4h - to be started 09/17 at midnight alternated with: - received Feiba -monitor H/H -hematology following. Tobacco abuse - Counseled regarding cessation - Nicotine gum every 3 hours as needed for nicotine withdrawal History of stomach ulcers - Added Protonix 40 mg by mouth daily Ra Garcia MD Sep 16, 2016 09:33
--- NOTE | 2016-09-16 09:41 | MB ---
cc: BRAXTON BARTHOLOMEW M.D. DATE OF CONSULTATION 09/15/2016 REASON FOR CONSULTATION Consult requested by Dr. Pantoja, ER physician, regarding hemophilia A in a patient who has been bleeding. HISTORY OF PRESENT ILLNESS Fidel is a 26-year-old very pleasant male. He recently moved to [place] from [place]. He saw my associate Dr. Leno Adam for followup of his hemophilia. The patient has a lifelong history of severe hemophilia A. He has been on prophylactic dose of Feiba at 7500 international units once a day and also NovoSeven mg IV once a day. However, when he bleeds he increases his Feiba and the NovoSeven. The patient has severe hemophilia A complicated by high inhibitor titers. The patient has been managing his hemophilia for a long period of time. He self-injects the factors. The patient noticed bleeding in his joints and muscles over the weekend. He increased his Feiba dose of 7500 to three times per day and also increased the NovoSeven 10 mg every 4 hours. However, he continues to have problem with the bleeding. He had called Dr. Adam's office today and he was advised to come to the emergency room. I was contacted by the ER physician, Dr. Rosa, for severe bleeding in a patient who has hemophilia A. I happened to be in the emergency room and I saw him. The patient clearly is in a lot of pain. He has a history of iliopsoas bleeding. He is complaining of back pain. Dr. Rosa had ordered a CAT scan of the abdomen and pelvis to evaluate for psoas bleeding. The patient is in a lot of pain and he is requesting to resume his home narcotics with additional IV narcotics. He denies any fever or night sweats. He denies any weight loss. PAST MEDICAL HISTORY 1. 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 2. Anxiety disorder. 3. 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 PAST SURGICAL HISTORY 1. Vizgmd-G-Zolo placement. 2. Compartment syndrome. 3. Left femoral fracture status post surgery. 4. Left knee surgery. ALLERGIES IBUPROFEN. NAPROSYN. MEDICATIONS 1. Feiba. 2. NovoSeven. 3. Morphine extended release 100 mg q. 12. 4. Oxycodone 30 mg IR q. 4-6 hours. 5. Xanax 0.5 mg three times a day. FAMILY HISTORY The patient has three brothers, two from severe hemophilia A. The patient has no children. SOCIAL HISTORY The patient smokes cigarettes. He does not drink alcohol. He is disabled due to the hemophilia A. PHYSICAL EXAMINATION GENERAL: This is a well-developed, well-nourished white male in no apparent distress. VITAL SIGNS: Temperature 98.5, heart rate is 126, blood pressure is 118/80. HEENT: PERRLA. EOMI. Anicteric. No oral lesions are noted. NECK: Supple. LYMPHATICS: There is no cervical, supraclavicular, axillary lymphadenopathy noted. LUNGS: Clear. No wheezing, rhonchi or rales. HEART: Tachycardia with no murmur. ABDOMEN: Soft, nontender. EXTREMITIES: No pedal edema. NEUROLOGY: Awake, alert, oriented x 3. SKIN: Bruises noted in the arm and the back and in the legs. EXTREMITIES: Swelling of the left knee noted. ASSESSMENT 1. Severe hemophilia A. 2. Factor inhibitor with high titers. 3. Hemarthrosis. 4. Bleeding into the muscle. PLAN 1. I have reviewed his available records and I have discussed with the patient and the ER physician, Dr. Pantoja. The patient clearly is having issues with the bleeding in spite of increasing feiba and NovoSeven. I have recommended to increase the Feiba to the maximum dose of 100 units per kg to be given every 6 hours. 2. We will also increase the NovoSeven 10 mg to be given every 2-4 hours to control the bleeding. 3. The patient is scheduled to have a CAT scan of the abdomen and pelvis to evaluate for some iliopsoas bleeding which he had in the past. The patient is complaining of back pain and he has clear bruising on the back as well. 4. The patient needs to be admitted to the hospital. PT/INR and APTT are still pending. The CBC is completely normal - hemoglobin is 13.9, hematocrit 40.2 with white count 10.9, platelet count 233. The comprehensive metabolic profile is normal as well except the creatinine is 0.54, AST is 12 and lipase is 66. I will have his primary radiology receptionist, Dr. Adam, to see him tomorrow morning and he will make further recommendations. Thank you for asking my opinion. MD ROLDAN Boswell/CONRAD /9:24 PM /9:24 AM NISHA
[2016-09-16] MEDS ORDERED: FACTOR VIIA (RECOMB) 1 MG VIAL IV PUSH ONE (14:00)
[2016-09-16 14:28] LABS: HEMATOCRIT 40.5 % (39.0-51.0); REVIEW FLAG FINAL
[2016-09-16 17:18] LABS: HEMATOCRIT 38.4 % (39.0-51.0); REVIEW FLAG FINAL
[2016-09-16] MEDS ORDERED: [UNRECOGNIZED DRUG - OTHER] IV ONE ×2 (20:00→20:15)
[2016-09-16 20:15] LABS: HEMATOCRIT 39.6 % (39.0-51.0); REVIEW FLAG FINAL
[2016-09-16] MEDS ORDERED: COAGULATION FACTOR VIIA RECOMBINANT IVP ONE ×3 (20:15→23:55)
[2016-09-17] VITALS (7 sets, daily range): BP systolic 108–135; BP diastolic 73–91; PULSE 87–113; RESP 16–20; TEMP 96.4–97.8; O2SAT 95–98
[2016-09-17] MEDS ORDERED: FACTOR VIIA (RECOMB) 1 MG VIAL IV PUSH SCH
[2016-09-17] MEDS: HYDROmorphone HCL PF 1 MG/ML VIAL IV PUSH PRN ×7 (00:36→21:49)
[2016-09-17] MEDS: NICOTINE 4 MG/GUM CHEW PRN ×6 (00:45→18:28)
[2016-09-17] MEDS ORDERED: [UNRECOGNIZED DRUG - OTHER] IV ONE ×3 (05:00→16:00)
[2016-09-17] MEDS ORDERED: HYDROmorphone HCL PF 1 MG/ML VIAL IV PUSH ONE (05:45)
[2016-09-17] MEDS: ALPRAZolam 0.5 MG TAB PO SCH ×3 (06:14→22:56)
[2016-09-17 07:06] LABS: AUTOMATED NEUTROPHIL # 6.2 TH/MM3 (1.8-7.7); BASOPHIL % 0.4 % (0.0-2.0); EOSINOPHIL # 0.4 TH/MM3 (0-0.4); EOSINOPHIL % 4.1 % (0.0-4.0); HEMATOCRIT 40.5 % (39.0-51.0); LYMPH % 25.5 % (9.0-44.0); LYMPHOCYTE # 2.5 TH/MM3 (1.0-4.8); MEAN CELL VOLUME 88.4 FL (80.0-100.0); MEAN CORPUSCULAR HEMOGLOBIN 30.2 PG (27.0-34.0); MEAN CORPUSCULAR HGB CONC 34.2 % (32.0-36.0); MONO % 7.9 % (0.0-8.0); NEUT % 62.1 % (16.0-70.0); PLATELET COUNT 200 TH/MM3 (150-450); RED BLOOD COUNT 4.58 MIL/MM3 (4.50-5.90); RED CELL DISTRIBUTION WIDTH 14.6 % (11.6-17.2)
[2016-09-17 07:19] LABS: HEMO FLAGS AUTO DIFF
--- NOTE | 2016-09-17 07:37 | PD.ONC.PN ---
Subjective Subjective Remarks Patient was seen and examined, reports persistent pain in the L knee, R hip and R flank. He reports not being able to sleep at all last night. He remains on around the clock pain meds and feels these do not help take the pain away completely. Objective Data Date Time Temp Pulse Resp B/P Pulse Ox O2 Delivery O2 Flow Rate FiO2 09/17/16 04:00 97.7 92 18 118/82 98 09/17/16 00:00 97.6 87 18 135/91 96 09/16/16 20:21 87 09/16/16 20:00 96.5 96 18 117/82 99 09/16/16 16:00 98.1 100 18 120/78 96 09/16/16 12:00 96.4 88 18 120/78 97 09/16/16 08:00 97.1 82 18 118/75 97 Result Diagram: 09/16/16201009/16/1606 Laboratory Results Laboratory Tests Test 09/16/16 09/16/16 09/16/16 09/16/16 09:26 13:30 16:55 20:11 Blood Type AB POSITIVE Antibody Screen NEGATIVE Antigen Identification A1 LECTIN - NEGATIVE Crossmatch Leukocyte-Reduced Red Blood Cells Blood Bank Comment Hemoglobin 13.9 GM/DL 13.3 GM/DL 13.8 GM/DL Hematocrit 40.5 % 38.4 % 39.6 % Administered Medications Medications (Trade) Dose Ordered Sig/Mike Route PRN Reason Start Time Stop Time Status Last Admin Dose Admin Morphine Sulfate (Oramorph Sr) 100 mg Q12HR PO 09/15/16 21:00 09/16/16 20:44 Oxycodone HCl (Roxicodone) 30 mg Q4H PRN PO PAIN SCALE 4 TO 10 09/15/16 20:15 09/17/16 02:58 Alprazolam (Xanax) 0.5 mg Q8HR PO 09/15/16 22:00 09/17/16 06:14 IV Flush (NS Flush) 2 ml BID FLUSH 09/16/16 09:00 09/16/16 20:43 Nicotine (Nicotine Gum) 4 mg Q3HR PRN CHEW nicotine withdrawal 09/16/16 01:30 09/17/16 04:41 Pantoprazole Sodium (Protonix) 40 mg DAILY PO 09/16/16 09:00 09/16/16 08:05 Hydromorphone HCl (Dilaudid Pf Inj) 3 mg Q3HR PRN IV PUSH breakthrough pain 09/16/16 18:45 09/17/16 04:27 Objective Remarks GENERAL: Young male sitting up at the side of the bed, arms folded across abdomen, in visible pain. SKIN: Warm and dry. HEAD: Normocephalic. EYES: No scleral icterus. No injection or drainage. NECK: Supple, trachea midline. No JVD or lymphadenopathy. LYMPHATIC: No adenopathy. CARDIOVASCULAR: Regular rate and rhythm without murmurs. RESPIRATORY: Breath sounds equal bilaterally. No accessory muscle use. GASTROINTESTINAL: Soft, tender to deep palpation, no palpable organ enlargement. EXTREMITIES: Joints are swollen, specifically his left knee. MUSCULOSKELETAL: Adequate muscle tone. NEUROLOGICAL: No obvious focal deficit. Awake, alert, and oriented x3. PSYCHIATRIC: Appropriate mood and affect; insight and judgment normal. 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 He has extensive osseous collegial issues related to hemophilia secondary to recurrent bleeds. Patient reports having had progressive pain in multiple joints as well as in the abdomen over the past 3 days. He tells me he traveled up the [place] last week to meet with friends and family and since he began his return trip he has been in increasing pain. He attempted to control the pain with increased factor dosing at home; usually alternates FEIBA and NovoSeven which on this occasion was not sufficient in controlling the pain/bleeding. Plan 1. Hemophilia A associated with high circulating inhibitor titers. Associated with recurrent bleeding. He has been continued on alternating doses of NovoSeven and FEIBA since admission, we are trying to dose him with factors every 4-6 hours while continuously evaluating his symptoms of pain. Over the course of hospitalization his hemoglobin and hematocrit have stayed stable, his PTT at the time of presentation was prolonged but not severely. The plan for today is to dose with FEIBA around 8 this morning 7500 units. He will subsequently get NovoSeven 7.6 mg at noon time. This will be followed by repeat dosing of FEIBA between 4 and 5 PM this afternoon. NovoSeven will subsequently be dosed between 9 and 10 PM, and so on and so forth as long as he continues to have symptoms of bleeding. PT PTT and INR has been ordered for this morning. Continue pain control regimen, he is on high doses of opioids both long and short acting. Hematology a follow-up with you, I will recommend checking serial CBCs to rule out declining hemoglobin and hematocrit levels. Leno Adam MD Sep 17, 2016 07:37
[2016-09-17 08:15] LABS: SCAN/DIFF AUTO DIFF CONFIRMED
[2016-09-17] MEDS: MORPHINE SULFATE 100 MG CONTROLLED RELEASE TAB PO SCH ×2 (08:18→20:32)
[2016-09-17] MEDS: PANTOPRAZOLE SOD 40 MG DELAYED RELEASE TAB PO SCH (08:18)
[2016-09-17] MEDS: SODIUM CHLORIDE 0.9% FLUSH 5 ML FLUSH FLUSH SCH ×2 (08:19→20:31)
[2016-09-17] MEDS ORDERED: MAGNESIUM HYDROXIDE SUSP 30 ML CUP PO PRN (09:00)
[2016-09-17] MEDS: DOCUSATE SODIUM 50 MG/SENNA 8.6 MG TAB PO SCH ×2 (09:00→20:34)
[2016-09-17 09:31] LABS: APTT (PATIENT) 67.2 SEC (24.3-30.1); INTERNATIONAL NORMALIZED RATIO 0.9 RATIO; PROTHROMBIN TIME - PATIENT 9.4 SEC (9.8-11.6)
[2016-09-17] MEDS ORDERED: NOVOSEVEN RT IVP ONE (12:00)
--- NOTE | 2016-09-17 12:15 | HHI.PR ---
Subjective Remarks Late entry. Patient seen at 10 AM this morning. He states he finally got an hour of sleep. He is tolerating the 3 mg of IV Dilaudid. 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 The patient is complaining of pain mainly in his right hip, left knee and lower back. Objective Vitals Vital Signs Date Time Temp Pulse Resp B/P Pulse Ox O2 Delivery O2 Flow Rate FiO2 09/17/16 10:14 92 09/17/16 07:50 96.4 92 20 108/83 96 09/17/16 04:00 97.7 92 18 118/82 98 09/17/16 00:00 97.6 87 18 135/91 96 09/16/16 20:21 87 09/16/16 20:00 96.5 96 18 117/82 99 09/16/16 16:00 98.1 100 18 120/78 96 I/O 09/16/16 09/16/16 09/16/16 09/17/16 09/17/16 09/17/16 07:00 15:00 23:00 07:00 15:00 23:00 Intake Total 900 ml 2760 ml 1440 ml 600 ml Output Total 850 ml 2800 ml 550 ml 950 ml Balance 50 ml -40 ml 890 ml -350 ml Intake Oral 900 ml 2760 ml 1440 ml 600 ml Output Urine Total 850 ml 2800 ml 550 ml 950 ml # Voids 1 # Bowel Movements 0 Result Diagram: 09/17/16 0435 09/16/16 0606 Objective Remarks GENERAL: Well-nourished, well-developed young adult male patient. SKIN: Warm and dry. HEAD: Normocephalic. EYES: No scleral icterus. No injection or drainage. NECK: Supple, trachea midline. No JVD or lymphadenopathy. CARDIOVASCULAR: Regular rate and rhythm without murmurs, gallops, or rubs. RESPIRATORY: Breath sounds equal bilaterally. No accessory muscle use. GASTROINTESTINAL: Abdomen soft, non-tender, nondistended. EXTREMITIES: Contractures of elbows unable to extend fully bilaterally. Swelling of bilateral knees. NEUROLOGICAL: Awake, alert, and oriented x 3. Non-focal. A/P Problem List: (1) Hemophilia A ICD Code: D66 Status: Acute (2) Hemarthrosis ICD Code: M25.00 Status: Acute (3) History of stomach ulcers ICD Code: Z87.19 Status: Resolved Assessment and Plan -Hemophilia a with acute hemarthrosis and pain of the right hip, left knee - also has high circulating inhibitors. Hemoglobin has been stable. He is receiving NovoSeven and Feiba as per hematology/Dr. Adam. -Chronic pain syndrome with acute pain due to the above. He has high pain tolerance continue home medications of Oramorph 100 mg by mouth every 12 hours and oxycodone 30 mg every 4 hours as needed for breakthrough pain. The patient is also on Dilaudid 3 mg IV every 3 hours as needed. He appears to be tolerating this without any respiratory depression. Continue telemetry. The patient states that normally he is transitioned to Dilaudid by mouth once the pain gets better. He is having bowel movements and I have started him on a bowel regimen to prevent constipation. -Anxiety. Continue home dose of Xanax. Tobacco abuse - Counseled regarding cessation - Nicotine gum every 3 hours as needed for nicotine withdrawal History of stomach ulcers - Added Protonix 40 mg by mouth daily Marilu Wiley MD Sep 17, 2016 12:15
[2016-09-17] MEDS ORDERED: FACTOR VIIA (RECOMB) 2 MG VIAL IV PUSH SCH (20:00)
[2016-09-17] MEDS: [UNRECOGNIZED DRUG - OTHER] IV SCH (23:57)
[2016-09-18] VITALS (7 sets, daily range): BP systolic 122–142; BP diastolic 71–83; PULSE 92–118; RESP 16–20; TEMP 97.7–98.7; O2SAT 95–100
[2016-09-18] MEDS ORDERED: ANTI-INHIBITOR COAGULANT COMPLEX 100 UNIT INJ IV SCH
[2016-09-18] MEDS: HYDROmorphone HCL PF 1 MG/ML VIAL IV PUSH PRN ×8 (00:46→22:17)
[2016-09-18] MEDS ORDERED: FACTOR VIIA (RECOMB) 2 MG VIAL IV PUSH ONE ×2 (04:00→12:00)
[2016-09-18] MEDS ORDERED: FACTOR VIIA (RECOMB) 5 MG VIAL IV PUSH ONE ×2 (04:00→12:00)
[2016-09-18] MEDS: NICOTINE 4 MG/GUM CHEW PRN ×6 (05:31→22:23)
[2016-09-18] MEDS: ALPRAZolam 0.5 MG TAB PO SCH ×3 (05:58→22:17)
[2016-09-18] MEDS: DOCUSATE SODIUM 50 MG/SENNA 8.6 MG TAB PO SCH ×2 (09:00→20:47)
[2016-09-18] MEDS: SODIUM CHLORIDE 0.9% FLUSH 5 ML FLUSH FLUSH SCH ×2 (09:09→20:38)
[2016-09-18] MEDS: [UNRECOGNIZED DRUG - OTHER] IV SCH ×2 (09:10→17:01)
[2016-09-18] MEDS: PANTOPRAZOLE SOD 40 MG DELAYED RELEASE TAB PO SCH (09:10)
[2016-09-18] MEDS: MORPHINE SULFATE 100 MG CONTROLLED RELEASE TAB PO SCH ×2 (09:10→20:35)
--- NOTE | 2016-09-18 09:58 | PD.ONC.PN ---
Subjective Subjective Remarks Mr. Gonzalez was seen and examined this AM. He reports his R flank pain is a little improved today. He continues to have pain in the R hip, L ankle and now has new pain and swelling of the L foot. He continues to get around the clock factor infusions with alternating doses of FEIBA and NovoSeven. His H&H have remained stable since admission, his PTT remains prolonged in the high 60's. Objective Data Date Time Temp Pulse Resp B/P Pulse Ox O2 Delivery O2 Flow Rate FiO2 09/18/16 07:50 98.3 92 20 142/71 100 09/18/16 05:13 98.0 101 16 136/78 96 09/18/16 01:04 98.7 98 16 122/81 95 09/17/16 15:50 97.8 87 20 115/73 96 09/17/16 11:50 97.1 101 20 125/81 09/17/16 10:14 92 09/18/16 09/18/16 09/18/16 07:00 15:00 23:00 Intake Total 100 ml Output Total 600 ml 900 ml Balance -500 ml -900 ml Result Diagram: 09/17/16 0435 09/16/16 0606 Administered Medications Medications (Trade) Dose Ordered Sig/Mike Route PRN Reason Start Time Stop Time Status Last Admin Dose Admin Morphine Sulfate (Oramorph Sr) 100 mg Q12HR PO 09/15/16 21:00 09/18/16 09:10 Oxycodone HCl (Roxicodone) 30 mg Q4H PRN PO PAIN SCALE 4 TO 10 09/15/16 20:15 09/18/16 09:10 Alprazolam (Xanax) 0.5 mg Q8HR PO 09/15/16 22:00 09/18/16 05:58 IV Flush (NS Flush) 2 ml BID FLUSH 09/16/16 09:00 09/18/16 09:09 Nicotine (Nicotine Gum) 4 mg Q3HR PRN CHEW nicotine withdrawal 09/16/16 01:30 09/18/16 09:50 Pantoprazole Sodium (Protonix) 40 mg DAILY PO 09/16/16 09:00 09/18/16 09:10 Hydromorphone HCl (Dilaudid Pf Inj) 3 mg Q3HR PRN IV PUSH breakthrough pain 09/16/16 18:45 09/18/16 09:50 Patient Own Medication PT OWN MED: FEIBA NF 7... Q8H IV 09/18/16 00:00 09/18/16 09:10 Objective Remarks GENERAL: Young male sitting up at the side of the bed, arms folded across abdomen, in visible pain. SKIN: Warm and dry. HEAD: Normocephalic. EYES: No scleral icterus. No injection or drainage. NECK: Supple, trachea midline. No JVD or lymphadenopathy. LYMPHATIC: No adenopathy. CARDIOVASCULAR: Regular rate and rhythm without murmurs. RESPIRATORY: Breath sounds equal bilaterally. No accessory muscle use. GASTROINTESTINAL: Soft, tender to deep palpation, no palpable organ enlargement. EXTREMITIES: Joints are swollen, specifically his left knee. Left leg swollen with swelling of the L ankle. MUSCULOSKELETAL: Adequate muscle tone. NEUROLOGICAL: No obvious focal deficit. Awake, alert, and oriented x3. PSYCHIATRIC: Appropriate mood and affect; insight and judgment normal. 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 He has extensive osseous collegial issues related to hemophilia secondary to recurrent bleeds. Patient reports having had progressive pain in multiple joints as well as in the abdomen over the past 3 days. He tells me he traveled up the [place] last week to meet with friends and family and since he began his return trip he has been in increasing pain. He attempted to control the pain with increased factor dosing at home; usually alternates FEIBA and NovoSeven which on this occasion was not sufficient in controlling the pain/bleeding. Plan 1. Hemophilia A associated with high circulating inhibitor titers. Associated with recurrent bleeding. He has been continued on alternating doses of NovoSeven and FEIBA since admission, we are trying to dose him with factors every 4-6 hours while continuously evaluating his symptoms of pain. Over the course of hospitalization his hemoglobin and hematocrit have stayed stable, his PTT at the time of presentation was prolonged but not severely. The plan for today is to dose with FEIBA around 8 this morning 7500 units. He will subsequently get NovoSeven 10 mg at noon time. This will be followed by repeat dosing of FEIBA between 4 and 5 PM this afternoon. NovoSeven will subsequently be dosed between 9 and 10 PM, and so on and so forth as long as he continues to have symptoms of bleeding. PT PTT and INR has been ordered for this morning. Continue pain control regimen, he is on high doses of opioids both long and short acting. Hematology a follow-up with you, I will recommend checking serial CBCs to rule out declining hemoglobin and hematocrit levels. Leno Adam MD Sep 18, 2016 09:58
[2016-09-18 10:43] LABS: AUTOMATED NEUTROPHIL # 5.2 TH/MM3 (1.8-7.7); BASOPHIL % 0.5 % (0.0-2.0); EOSINOPHIL # 0.3 TH/MM3 (0-0.4); EOSINOPHIL % 3.7 % (0.0-4.0); HEMATOCRIT 38.3 % (39.0-51.0); HEMO FLAGS DIFF FINAL; LYMPH % 20.2 % (9.0-44.0); LYMPHOCYTE # 1.6 TH/MM3 (1.0-4.8); MEAN CELL VOLUME 86.7 FL (80.0-100.0); MEAN CORPUSCULAR HEMOGLOBIN 30.2 PG (27.0-34.0); MEAN CORPUSCULAR HGB CONC 34.8 % (32.0-36.0); MONO % 8.3 % (0.0-8.0); NEUT % 67.3 % (16.0-70.0); PLATELET COUNT 182 TH/MM3 (150-450); RED BLOOD COUNT 4.41 MIL/MM3 (4.50-5.90); RED CELL DISTRIBUTION WIDTH 14.4 % (11.6-17.2); WHITE BLOOD COUNT 7.7 TH/MM3 (4.0-11.0)
[2016-09-18] MEDS ORDERED: FACTOR VIIA (RECOMB) 2 MG VIAL IV PUSH SCH (12:00)
--- NOTE | 2016-09-18 13:33 | HHI.PR ---
Subjective Remarks Having new left ankle pain and swelling. Hoping to go home in the next day or two. Objective Vitals Vital Signs Date Time Temp Pulse Resp B/P Pulse Ox O2 Delivery O2 Flow Rate FiO2 09/18/16 08:04 118 09/18/16 07:50 98.3 92 20 142/71 100 09/18/16 05:13 98.0 101 16 136/78 96 09/18/16 01:04 98.7 98 16 122/81 95 09/17/16 15:50 97.8 87 20 115/73 96 I/O 09/17/16 09/17/16 09/17/16 09/18/16 09/18/16 09/18/16 07:00 15:00 23:00 07:00 15:00 23:00 Intake Total 600 ml 360 ml 500 ml 100 ml Output Total 950 ml 750 ml 400 ml 600 ml 900 ml Balance -350 ml -390 ml 100 ml -500 ml -900 ml Intake Oral 600 ml 360 ml 500 ml 100 ml Output Urine Total 950 ml 750 ml 400 ml 600 ml 900 ml # Bowel Movements 0 0 0 Result Diagram: 09/18/16 1023 09/16/16 0606 Objective Remarks GENERAL: Well-nourished, well-developed young adult male patient. SKIN: Warm and dry. HEAD: Normocephalic. EYES: No scleral icterus. No injection or drainage. NECK: Supple, trachea midline. No JVD or lymphadenopathy. CARDIOVASCULAR: Regular rate and rhythm without murmurs, gallops, or rubs. RESPIRATORY: Breath sounds equal bilaterally. No accessory muscle use. GASTROINTESTINAL: Abdomen soft, non-tender, nondistended. EXTREMITIES: Contractures of elbows unable to extend fully bilaterally. Swelling of bilateral knees. left ankle and calve swollen, calve mildly warm to palpation NEUROLOGICAL: Awake, alert, and oriented x 3. Non-focal. A/P Problem List: (1) Hemophilia A ICD Code: D66 Status: Acute (2) Hemarthrosis ICD Code: M25.00 Status: Acute (3) History of stomach ulcers ICD Code: Z87.19 Status: Resolved Assessment and Plan -Hemophilia a with acute hemarthrosis and pain of the right hip, left knee, left ankle - also has high circulating inhibitors. Hemoglobin has been stable. He is receiving NovoSeven and Feiba as per hematology/Dr. Adam. -Chronic pain syndrome with acute pain due to the above. He has high pain tolerance continue home medications of Oramorph 100 mg by mouth every 12 hours and oxycodone 30 mg every 4 hours as needed for breakthrough pain. The patient is also on Dilaudid 3 mg IV every 3 hours as needed. He appears to be tolerating this without any respiratory depression. Continue telemetry. The patient states that normally he is transitioned to Dilaudid by mouth once the pain gets better. He is having bowel movements and I have started him on a bowel regimen to prevent constipation. -Anxiety. Continue home dose of Xanax. Tobacco abuse - Counseled regarding cessation - Nicotine gum every 3 hours as needed for nicotine withdrawal History of stomach ulcers - Added Protonix 40 mg by mouth daily Marilu Wiley MD Sep 18, 2016 13:33
[2016-09-18] MEDS: FACTOR VIIA (RECOMB) 2 MG VIAL IV PUSH SCH (20:35)
[2016-09-18] MEDS: ANTI-INHIBITOR COAGULANT COMPLEX 100 UNIT INJ IV SCH (23:25)
[2016-09-19 00:12] VITALS: BP 130/78; PULSE 72; RESP 16; TEMP 97.8; O2SAT 94
[2016-09-19] MEDS: HYDROmorphone HCL PF 1 MG/ML VIAL IV PUSH PRN ×5 (01:23→15:55)
[2016-09-19] MEDS: NICOTINE 4 MG/GUM CHEW PRN ×3 (01:25→11:21)
[2016-09-19 04:00] VITALS: BP 140/78; PULSE 93; RESP 16; TEMP 98; O2SAT 99
[2016-09-19] MEDS: FACTOR VIIA (RECOMB) 2 MG VIAL IV PUSH SCH ×2 (04:27→12:42)
[2016-09-19] MEDS: ALPRAZolam 0.5 MG TAB PO SCH ×2 (05:48→15:02)
--- NOTE | 2016-09-19 07:15 | PD.ONC.PN ---
Subjective Subjective Remarks Fidel reports feeling better this morning, he tells me his left knee is now more mobile and less painful, his right hip remains painful but is more manageable, the right flank pain is improved. His left ankle remains swollen but he has wrapped this in a compression bandage and this is helped. He thinks he is well enough to get going home today. He has requested refills on his oxycodone, long-acting morphine and Xanax which I had previously refilled for him and I believe June 2016. Objective Data Date Time Temp Pulse Resp B/P Pulse Ox O2 Delivery O2 Flow Rate FiO2 09/19/16 04:00 98.0 93 16 140/78 99 09/19/16 00:12 97.8 72 16 130/78 94 09/18/16 21:00 97.7 102 16 133/77 95 09/18/16 15:50 98.2 109 20 131/83 97 09/18/16 08:04 118 09/18/16 07:50 98.3 92 20 142/71 100 09/19/16 09/19/16 09/19/16 07:00 15:00 23:00 Intake Total 1200 ml Output Total 5125 ml Balance -3925 ml Result Diagram: 09/18/16 1023 09/16/16 0606 Laboratory Results Laboratory Tests Test 09/18/16 10:23 White Blood Count 7.7 TH/MM3 Red Blood Count 4.41 MIL/MM3 Hemoglobin 13.3 GM/DL Hematocrit 38.3 % Mean Corpuscular Volume 86.7 FL Mean Corpuscular Hemoglobin 30.2 PG Mean Corpuscular Hemoglobin 34.8 % Concent Red Cell Distribution Width 14.4 % Platelet Count 182 TH/MM3 Mean Platelet Volume 7.7 FL Neutrophils (%) (Auto) 67.3 % Lymphocytes (%) (Auto) 20.2 % Monocytes (%) (Auto) 8.3 % Eosinophils (%) (Auto) 3.7 % Basophils (%) (Auto) 0.5 % Neutrophils # (Auto) 5.2 TH/MM3 Lymphocytes # (Auto) 1.6 TH/MM3 Monocytes # (Auto) 0.6 TH/MM3 Eosinophils # (Auto) 0.3 TH/MM3 Basophils # (Auto) 0.0 TH/MM3 CBC Comment DIFF FINAL Differential Comment Administered Medications Medications (Trade) Dose Ordered Sig/Mike Route PRN Reason Start Time Stop Time Status Last Admin Dose Admin Morphine Sulfate (Oramorph Sr) 100 mg Q12HR PO 09/15/16 21:00 09/18/16 20:35 Oxycodone HCl (Roxicodone) 30 mg Q4H PRN PO PAIN SCALE 4 TO 10 09/15/16 20:15 09/19/16 05:49 Alprazolam (Xanax) 0.5 mg Q8HR PO 09/15/16 22:00 09/19/16 05:48 IV Flush (NS Flush) 2 ml BID FLUSH 09/16/16 09:00 09/18/16 20:38 Nicotine (Nicotine Gum) 4 mg Q3HR PRN CHEW nicotine withdrawal 09/16/16 01:30 09/19/16 01:25 Pantoprazole Sodium (Protonix) 40 mg DAILY PO 09/16/16 09:00 09/18/16 09:10 Hydromorphone HCl (Dilaudid Pf Inj) 3 mg Q3HR PRN IV PUSH breakthrough pain 09/16/16 18:45 09/19/16 04:24 Patient Own Medication PT OWN MED: FEIBA NF 7... Q8H IV 09/18/16 00:00 Hold 09/18/16 17:01 Factor VII (Pha) (Novoseven Rt Inj) 8 mg Q8H IV PUSH 09/18/16 20:00 09/19/16 04:27 Anti-Inhibitor Coagulant Complex (Feiba Nf Inj) 7,500 units Q8H IV 09/19/16 00:00 09/18/16 23:25 Objective Remarks GENERAL: Young male sitting up at the side of the bed, appears more comfortable this morning. SKIN: Warm and dry. HEAD: Normocephalic. EYES: No scleral icterus. No injection or drainage. NECK: Supple, trachea midline. No JVD or lymphadenopathy. LYMPHATIC: No adenopathy. CARDIOVASCULAR: Regular rate and rhythm without murmurs. RESPIRATORY: Breath sounds equal bilaterally. No accessory muscle use. GASTROINTESTINAL: Soft, tender to deep palpation, no palpable organ enlargement. EXTREMITIES: Joints are swollen, specifically his left knee. Left leg swollen with swelling of the L ankle. MUSCULOSKELETAL: Adequate muscle tone. NEUROLOGICAL: No obvious focal deficit. Awake, alert, and oriented x3. PSYCHIATRIC: Appropriate mood and affect; insight and judgment normal. 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 He has extensive osseous collegial issues related to hemophilia secondary to recurrent bleeds. Patient reports having had progressive pain in multiple joints as well as in the abdomen over the past 3 days. He tells me he traveled up the [place] last week to meet with friends and family and since he began his return trip he has been in increasing pain. He attempted to control the pain with increased factor dosing at home; usually alternates FEIBA and NovoSeven which on this occasion was not sufficient in controlling the pain/bleeding. Plan 1. Hemophilia A associated with high circulating inhibitor titers. Clinically improved, feels well enough to go home today. I've advised him to continue infusing alternating doses of feiba and NovoSeven and increased frequency until he feels back to baseline. At that point he can go back to every 12 hours dosing. I have also refilled his pain medications, the patient has chronic pain due to recurrent hemarthroses and degenerative joint disease. He is on stable doses of long-acting morphine sulfate 60 mg twice daily, refill was given. He is on stable dose of oxycodone 30 mg by mouth every 6 hours as needed for pain, refill was given. He is also on alprazolam 0.5 mg twice daily as needed for anxiety, he requires a refill once every 2 months or so and a refill was prescribed for this as well. The paper prescriptions are in the chart, there were ordered in my outpatient computer system to chart the date and time and quantity of medications prescribed. Follow-up with me as an outpatient on 09/26/2016. He is cleared for discharge from my standpoint. Leno Adam MD Sep 19, 2016 07:15
[2016-09-19 07:26] LABS: AUTOMATED NEUTROPHIL # 5.7 TH/MM3 (1.8-7.7); BASOPHIL % 0.4 % (0.0-2.0); EOSINOPHIL # 0.4 TH/MM3 (0-0.4); EOSINOPHIL % 4.2 % (0.0-4.0); HEMATOCRIT 38.2 % (39.0-51.0); LYMPH % 22.8 % (9.0-44.0); MEAN CELL VOLUME 87.9 FL (80.0-100.0); MEAN CORPUSCULAR HEMOGLOBIN 30.8 PG (27.0-34.0); MEAN CORPUSCULAR HGB CONC 35.1 % (32.0-36.0); MONO % 7.8 % (0.0-8.0); NEUT % 64.8 % (16.0-70.0); PLATELET COUNT 169 TH/MM3 (150-450); RED BLOOD COUNT 4.35 MIL/MM3 (4.50-5.90); RED CELL DISTRIBUTION WIDTH 14.3 % (11.6-17.2); WHITE BLOOD COUNT 8.8 TH/MM3 (4.0-11.0)
[2016-09-19 07:29] LABS: HEMO FLAGS AUTO DIFF
[2016-09-19 08:00] VITALS: BP 122/67; PULSE 98; RESP 16; TEMP 97.3; O2SAT 99
[2016-09-19] MEDS: ANTI-INHIBITOR COAGULANT COMPLEX 100 UNIT INJ IV SCH ×2 (08:03→16:18)
[2016-09-19] MEDS: PANTOPRAZOLE SOD 40 MG DELAYED RELEASE TAB PO SCH (08:03)
[2016-09-19] MEDS: MORPHINE SULFATE 100 MG CONTROLLED RELEASE TAB PO SCH (08:04)
[2016-09-19] MEDS: DOCUSATE SODIUM 50 MG/SENNA 8.6 MG TAB PO SCH (08:04)
[2016-09-19] MEDS: SODIUM CHLORIDE 0.9% FLUSH 5 ML FLUSH FLUSH SCH (08:04)
[2016-09-19 08:46] LABS: PLATELET ESTIMATE SMEAR NORMAL (NORMAL); PLATELET MORPHOLOGY NORMAL (NORMAL); SCAN/DIFF AUTO DIFF CONFIRMED
[2016-09-19 09:21] LABS: APTT (PATIENT) 61.2 SEC (24.3-30.1)
[2016-09-19 12:00] VITALS: BP 116/70; PULSE 88; RESP 16; TEMP 97.1; O2SAT 96
[2016-09-19] MEDS ORDERED: NICO4GUM CHEW (15:59)
[2016-09-19] MEDS ORDERED: PANT40TA3 PO (15:59)
--- NOTE | 2016-09-19 16:05 | HHI.PR ---
Subjective Remarks Follow up: hemophilia A, tobacco abuse. Patient reports that pain is still present but has improved. Patient reports that his left knee is now more mobile and less painful, his right hip remains painful but is more manageable, the right flank pain is improving. His left ankle remains swollen but he has wrapped this in a compression bandage and this is helped. Patient requesting to be DC home. He reports he can, "deal with this at home." Offers no other complaints at this time denies nausea vomiting diarrhea constipation shortness of breath chest pain fevers or chills. Objective Vitals Vital Signs Date Time Temp Pulse Resp B/P Pulse Ox O2 Delivery O2 Flow Rate FiO2 09/19/16 12:00 97.1 88 16 116/70 96 09/19/16 08:00 97.3 98 16 122/67 99 09/19/16 04:00 98.0 93 16 140/78 99 09/19/16 00:12 97.8 72 16 130/78 94 09/18/16 21:00 97.7 102 16 133/77 95 09/18/16 20:00 98 I/O 09/18/16 09/18/16 09/18/16 09/19/16 09/19/16 09/19/16 07:00 15:00 23:00 07:00 15:00 23:00 Intake Total 100 ml 480 ml 800 ml 1200 ml Output Total 600 ml 2175 ml 2200 ml 5125 ml Balance -500 ml -1695 ml -1400 ml -3925 ml Intake Oral 100 ml 480 ml 800 ml 1200 ml Output Urine Total 600 ml 2175 ml 2200 ml 5125 ml # Bowel Movements 0 0 0 0 Result Diagram: 09/19/16 0550 09/16/16 0606 Imaging Last Impressions Abdomen/Pelvis CT 09/15/16 1831 Signed Impressions: Service Date/Time: Thursday, September 15, 2016 21:30 - CONCLUSION: 1. No acute abnormality seen within the abdomen or pelvis. 2. Chronic disc centered degenerative changes at L4/L5. There is associated prominent left anterolateral osseous ridging and probable partial ankylosis. 3. Severe right hip osteoarthritis with a joint body. The arthropathy appears chronic. 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 4. I don't see an acute bony abnormality. Ulysses Chowdhury MD Chest X-Ray 09/15/16 0000 Signed Impressions: Service Date/Time: Thursday, September 15, 2016 19:50 - CONCLUSION: No evidence of acute cardiopulmonary disease. Ulysses Chowdhury MD Objective Remarks GENERAL: Well-nourished, well-developed young adult male patient. SKIN: Warm and dry. HEAD: Normocephalic. EYES: No scleral icterus. No injection or drainage. NECK: Supple, trachea midline. No JVD or lymphadenopathy. CARDIOVASCULAR: Regular rate and rhythm without murmurs, gallops, or rubs. RESPIRATORY: Breath sounds equal bilaterally. No accessory muscle use. GASTROINTESTINAL: Abdomen soft, non-tender, nondistended. EXTREMITIES: Contractures of elbows unable to extend fully bilaterally. Swelling of bilateral knees. left ankle and calve swollen, calve mildly warm to palpation NEUROLOGICAL: Awake, alert, and oriented x 3. Non-focal. Medications and IVs Current Medications Medications (Trade) Dose Ordered Sig/Mike Route Start Time Stop Time Status Last Admin (NS Flush) 2 ml UNSCH PRN IVF 09/15/16 18:45 (Oramorph Sr) 100 mg Q12HR PO 09/15/16 21:00 09/19/16 08:04 (Roxicodone) 30 mg Q4H PRN PO 09/15/16 20:15 09/19/16 15:03 (Xanax) 0.5 mg Q8HR PO 09/15/16 22:00 09/19/16 15:02 (NS Flush) 2 ml UNSCH PRN FLUSH 09/15/16 22:15 (NS Flush) 2 ml BID FLUSH 09/16/16 09:00 09/19/16 08:04 (Narcan Inj) 0.4 mg UNSCH PRN IV 09/15/16 22:15 (Nicotine Gum) 4 mg Q3HR PRN CHEW 09/16/16 01:30 09/19/16 11:21 (Protonix) 40 mg DAILY PO 09/16/16 09:00 09/19/16 08:03 (Dilaudid Pf Inj) 3 mg Q3HR PRN IV PUSH 09/16/16 18:45 09/19/16 15:55 (Kelli-Colace) 1 tab BID PO 09/17/16 09:00 (Milk Of Magnesia Liq) 30 ml DAILY PRN PO 09/17/16 09:00 Patient Own Medication PT OWN MED: FEIBA NF 7... Q8H IV 09/18/16 00:00 Hold 09/18/16 17:01 (Novoseven Rt Inj) 8 mg Q8H IV PUSH 09/18/16 20:00 09/19/16 12:42 (Feiba Nf Inj) 7,500 units Q8H IV 09/19/16 00:00 09/19/16 16:18 Urinary Catheter: No Vascular Central Line Catheter: No A/P Problem List: (1) Hemophilia A ICD Code: D66 Status: Acute (2) Hemarthrosis ICD Code: M25.00 Status: Acute (3) History of stomach ulcers ICD Code: Z87.19 Status: Resolved Assessment and Plan -Hemophilia A with acute hemarthrosis and pain of the right hip, left knee, left ankle - also has high circulating inhibitors. Hemoglobin has been stable. He is receiving NovoSeven and Feiba as per hematology/Dr. Adam. Cleared for DC per hematology Patient reports pain is still present but is improving- offered to patient to stay in hospital longer for pain management Patient stated he feels as though he can manage this pain at home- requesting to be DC home -Chronic pain syndrome with acute pain due to the above. managed per Dr. Adam -Anxiety. Continue home dose of Xanax. Tobacco abuse - Counseled regarding cessation - continue nicotine gum to assist in tobacco cessation - Encouraged to abstain History of stomach ulcers - Protonix 40 mg by mouth daily Discussed plan of care with patient and RN Written by Celia Mejia, acting as scribe for Dr. Noguera on 09/19/16 at 16:01. Attending Statement The documentation accurately reflects the work performed [id number] by me on at 16:01. Celia Mejia Sep 19, 2016 16:05 Ritesh Mclaughlin MD Sep 19, 2016 16:59
--- NOTE | 2016-09-19 16:06 | HHI.DS ---
Discharge Summary Admission Date Sep 17, 2016 at 08:51 Discharge Date: Sep 19, 2016 Admitting Diagnosis Hemophilia A, Hemarthrosis. (1) Hemophilia A ICD Code: D66 (2) Hemarthrosis ICD Code: M25.00 Diagnosis: Principal (3) History of stomach ulcers ICD Code: Z87.19 Diagnosis: Secondary Procedures none Brief History - From Admission Mr. Gonzalez is a 26-year-old male with past medical history of hemophilia A with intolerance to factor VIII replacement and arthritis who presents to the emergency room on 09/15/2016 for evaluation of left knee pain/swelling, left ankle pain/swelling, right hip pain/swelling, and right lower back pain and swelling. Abdomen/pelvis CT with no acute abnormalities seen; chronic disc centered changes at L4/L5; severe right hip osteoarthritis. The patient is seen in his hospital room. He complains of severe right hip, left knee, and left ankle pain with swelling. He had been medicated with Dilaudid 1 mg IV approximately 30 minutes prior to arrival without relief. Pain level is 10 out of 10. He has admitted tolerance to opioids due to the long-standing nature of his chronic pain and necessitating increasing opioid doses for management. He is very familiar and knowledgeable with his disease process and treatment and states he knows how he feels when he is "bleeding into his joints" and this is how he feels currently. He states that symptoms have been going on over the past 3 days. He reports chronic smoker's cough per patient; denies hemoptysis, epistaxis, hematuria, bloody or black stools. He denies fevers, shortness of breath. He denies diabetes mellitus, hypertension, cardiac problems, breathing problems , liver or kidney problems, hepatitis, thyroid dysfunction, seizures, or cancers. CBC/BMP: 09/19/16 0550 09/16/16 0606 Significant Findings Laboratory Tests Test 09/16/16 09/17/16 09/17/16 09/18/16 16:55 04:35 08:26 10:23 Hematocrit 38.4 % 38.3 % (39.0-51.0) (39.0-51.0) Eosinophils (%) (Auto) 4.1 % (0.0-4.0) Prothrombin Time 9.4 SEC (9.8-11.6) Activated Partial 67.2 SEC Thromboplast Time (24.3-30.1) Red Blood Count 4.41 MIL/MM3 (4.50-5.90) Monocytes (%) (Auto) 8.3 % (0.0-8.0) Test 09/19/16 09/19/16 05:50 08:10 Red Blood Count 4.35 MIL/MM3 (4.50-5.90) Hematocrit 38.2 % (39.0-51.0) Eosinophils (%) (Auto) 4.2 % (0.0-4.0) Activated Partial 61.2 SEC Thromboplast Time (24.3-30.1) Imaging Last Impressions Abdomen/Pelvis CT 09/15/16 1831 Signed Impressions: Service Date/Time: Thursday, September 15, 2016 21:30 - CONCLUSION: 1. No acute abnormality seen within the abdomen or pelvis. 2. Chronic disc centered degenerative changes at L4/L5. There is associated prominent left anterolateral osseous ridging and probable partial ankylosis. 3. Severe right hip osteoarthritis with a joint body. The arthropathy appears chronic. 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 4. I don't see an acute bony abnormality. Ulysses Chowdhury MD Chest X-Ray 09/15/16 0000 Signed Impressions: Service Date/Time: Thursday, September 15, 2016 19:50 - CONCLUSION: No evidence of acute cardiopulmonary disease. Ulysses Chowdhury MD PE at Discharge GENERAL: Well-nourished, well-developed young adult male patient. SKIN: Warm and dry. HEAD: Normocephalic. EYES: No scleral icterus. No injection or drainage. NECK: Supple, trachea midline. No JVD or lymphadenopathy. CARDIOVASCULAR: Regular rate and rhythm without murmurs, gallops, or rubs. RESPIRATORY: Breath sounds equal bilaterally. No accessory muscle use. GASTROINTESTINAL: Abdomen soft, non-tender, nondistended. EXTREMITIES: Contractures of elbows unable to extend fully bilaterally. Swelling of bilateral knees. left ankle and calve swollen, calve mildly warm to palpation NEUROLOGICAL: Awake, alert, and oriented x 3. Non-focal. Hospital Course Patient admitted with Hemophilia A with acute hemarthrosis and pain of the right hip, left knee, left ankle - also has high circulating inhibitors. Hemoglobin has been stable. He is receiving NovoSeven and Feiba as per hematology/Dr. Adam. Followed by hematology Patient pain has improved to the paoint that he feels as though he can manage at home. Anxiety. Continue home dose of Xanax. Tobacco abuse Counseled regarding cessation continue nicotine gum to assist in tobacco cessation Encouraged to abstain History of stomach ulcers Protonix 40 mg by mouth daily Discussed plan of care with patient and RN Written by Celia Mejia, acting as scribe for Dr. Noguera on 09/19/16 at 16:01. The documentation accurately reflects the work performed [id number] by me on at 16:01. Pt Condition on Discharge: Stable Discharge Disposition: Discharge Home Discharge Time: <= 30 minutes Discharge Instructions DIET: Follow Instructions for: As Tolerated, No Restrictions Activities you can perform: See Additionl Instruction Other Activity Instructions: Per hematology Dr. Adam Follow up Referrals: Oncology - [address] Adam PCP Follow-up - 1 Week New Medications: Nicotine Polacrilex (Nicotine Polacrilex) 4 Mg Gum 4 MG CHEW Q3HR PRN nicotine withdrawal Days 30 Ref 0 EA Pantoprazole (Pantoprazole) 40 Mg Tab 40 MG PO DAILY stomach acid Days 30 Ref 0 TAB Continued Medications: Alprazolam (Xanax) 0.25 Mg Tab 0.25 MG PO BID PRN ANXIETY Ref 0 TAB Antiinhibitor Coagulant Complex Inj (Feiba NF Inj) 500 Units Inj 7342 UNITS INJ EVERY OTHER DAY Coagulation Factor VIIa (Recomb) Inj (Novoseven Rt Inj) 1 Mg Inj 10 MCG IV EVERY OTHER DAY Days 12 VIAL Oxycodone (Oxycodone) 30 Mg Tab 30 MG PO q12 PRN PAIN SCALE 6 TO 10 #20 Ref 0 TAB Celia Mejia Sep 19, 2016 16:06 Ritesh Mclaughlin MD Sep 19, 2016 17:01
== END 2016-09-19 17:33 | disposition home or self-care (01) | DRG 813 ==
LOC: NEPA 17:59 → INTOOBSV 22:11 → NEDA 22:11 → HOCB 09-16 00:45 → OBSVTOIN 09-17 08:51
PROVIDERS: ADMIT Family Medicine; ATTEND Hospitalist
PROC: 30233V1 Transfusion of Nonautologous Antihemophilic Factors into Peripheral Vein, Percutaneous Approach (ICD-10-PCS; principal; 2016-09-15)
DX: D66 Hereditary factor VIII deficiency (principal); F41.9 Anxiety disorder, unspecified; M36.2 Hemophilic arthropathy; F17.210 Nicotine dependence, cigarettes, uncomplicated; G89.4 Chronic pain syndrome; Z87.11 Personal history of peptic ulcer disease
CPT/HCPCS: 71010; 74177; 80048; 80053; 81001; 83605; 83690; 85014; 85018; 85025; 85610; 85730; 86850; 86900; 86901; 86902; 86920; 86922; 96361; 96374; 96375; G0378; J1170; J2270; J7030; J7189; J7198; Q9967

== ENCOUNTER 2016-10-11 18:13 | Inpatient (IN) | payer MEDICARE, OTHER ==
[~2016-10-11] VITALS: Ht 177.8 cm; Wt 81.0 kg
[~2016-10-11 18:13] MED LIST changes: +ALPR.25 PO; +NICO4GUM CHEW; +PANT40TA3 PO; -[UNRECOGNIZED DRUG - OTHER] INJ
[2016-10-11 18:55] VITALS: BP 126/94; PULSE 112; RESP 18; O2SAT 96
[2016-10-11] MEDS ORDERED: HYDROmorphone HCL PF 1 MG/ML VIAL IV PUSH ONE ×3 (19:00→21:00)
[2016-10-11 19:17] LABS: AUTOMATED NEUTROPHIL # 11.5 TH/MM3 (1.8-7.7); BASOPHIL # 0.1 TH/MM3 (0-0.2); BASOPHIL % 0.4 % (0.0-2.0); EOSINOPHIL # 0.2 TH/MM3 (0-0.4); EOSINOPHIL % 1.6 % (0.0-4.0); HEMO FLAGS DIFF FINAL; LYMPH % 15.1 % (9.0-44.0); LYMPHOCYTE # 2.2 TH/MM3 (1.0-4.8); MEAN CELL VOLUME 85.9 FL (80.0-100.0); MEAN CORPUSCULAR HEMOGLOBIN 29.7 PG (27.0-34.0); MEAN CORPUSCULAR HGB CONC 34.6 % (32.0-36.0); MONO % 4.6 % (0.0-8.0); NEUT % 78.3 % (16.0-70.0); PLATELET COUNT 309 TH/MM3 (150-450); RED BLOOD COUNT 5.13 MIL/MM3 (4.50-5.90); RED CELL DISTRIBUTION WIDTH 14.4 % (11.6-17.2); WHITE BLOOD COUNT 14.7 TH/MM3 (4.0-11.0)
[2016-10-11 19:35] LABS: BICARBONATE 26.2 MEQ/L (21.0-32.0); POTASSIUM 3.8 MEQ/L (3.5-5.1)
[2016-10-11 19:54] LABS: APTT (PATIENT) 86.7 SEC (24.3-30.1)
[2016-10-11 19:55] LABS: PROTHROMBIN TIME - PATIENT 10.7 SEC (9.8-11.6)
[2016-10-11] MEDS ORDERED: IOHEXOL 350 MG/ML 10 ML VIAL (for RAD DIAG) IV ONE (21:02)
--- NOTE | 2016-10-11 21:14 | RADRPT ---
EXAM DATE/TIME: 10/11/2016 20:53 This report includes an Addendum and supersedes previous reports for this exam. [facility] COMPARISON: CT ABDOMEN & PELVIS W CONTRAST, September 15, 2016, 21:30. INDICATIONS : History of hemophilia, complains of lower back pain and right hip. IV CONTRAST: 96 cc Omnipaque 350 (iohexol) IV ORAL CONTRAST: No oral contrast ingested. RADIATION DOSE: 9.96 CTDIvol (mGy) MEDICAL HISTORY : Ulcers. Hemophilia. SURGICAL HISTORY : Left femur surgery. ENCOUNTER: Initial ACUITY: 1 day PAIN SCALE: 6/10 LOCATION: Right lower quadrant TECHNIQUE: Volumetric scanning of the abdomen and pelvis was performed. Using automated exposure control and ad justment of the mA and/or kV according to patient size, radiation dose was kept as low as reasonably achievable to obtain optimal diagnostic quality images. FINDINGS: LOWER LUNGS: The visualized lower lungs are clear. LIVER: Homogeneous density without lesion. There is no dilation of the biliary tree. No calcified gallston es. SPLEEN: Normal size without lesion. PANCREAS: Within normal limits. KIDNEYS: Normal in size and shape. There is no mass, stone or hydronephrosis. ADRENAL GLANDS: Within normal limits. VASCULAR: There is no aortic aneurysm. BOWEL/MESENTERY: The stomach, small bowel, and colon demonstrate no acute abnormality. There is no free intraperitone al air or fluid. ABDOMINAL WALL: Within normal limits. RETROPERITONEUM: There is no lymphadenopathy. BLADDER: No wall thickening or mass. REPRODUCTIVE: Within normal limits. INGUINAL: There is no lymphadenopathy or hernia. MUSCULOSKELETAL: Extensive degenerative changes again noted in the right hip. Degenerative disc changes again noted at the L4-5 level. CONCLUSION: 1. Degenerative disc change is noted at the L4-5 level. 2. Severe degenerative changes in the right hip. Pj Sinha MD on October 11, 2016 at 21:07 Board Certified Radiologist. This report was verified electronically. ADDENDUM: The study was reviewed at Dr. Basilio's request. The iliopsoas musculature is intact there is no evid ence of acute hemorrhage. Pj Sinha MD on October 11, 2016 at 21:48 Board Certified Radiologist. This report was verified electronically.
--- NOTE | 2016-10-11 21:15 | RADRPT ---
EXAM DATE/TIME: 10/11/2016 20:53 [facility] COMPARISON: No previous studies available for comparison. INDICATIONS : History of hemophilia, complains of lower back pain and right hip RADIATION DOSE: CTDIvol (mGy) ; Reconstructed from previous dataset MEDICAL HISTORY : Ulcers. Hemophilia. SURGICAL HISTORY : Lfemur surgery. ENCOUNTER: Initial ACUITY: 1 day PAIN SCALE: 6/10 LOCATION: Right lumbar TECHNIQUE: Volumetric scanning of the lumbar spine was performed. Multiplanar reconstructions in the sagittal, coronal and oblique axial planes were performed. Using automated exposure control and adjustment of the mA and/or kV according to patient size, radiation dose was kept as low as reasonably achievable t o obtain optimal diagnostic quality images. FINDINGS: VERTEBRAE: Normal vertebral body height. Degenerative changes at L4-5 with prominent endplate osteophytes. Mild loss of height of L5. ALIGNMENT: No evidence of subluxation. T12-L1: The thecal sac has a normal diameter. No evidence of disc bulge or protrusion. The neural foramina are patent bilaterally. L1-L2: The thecal sac has a normal diameter. No evidence of disc bulge or protrusion. The neural foramina are patent bilaterally. L2-L3: The thecal sac has a normal diameter. No evidence of disc bulge or protrusion. The neural foramina are patent bilaterally. L3-L4: The thecal sac has a normal diameter. No evidence of disc bulge or protrusion. The neural foramina are patent bilaterally. L4-L5: The thecal sac has a normal diameter. No evidence of disc bulge or protrusion. The neural foramina are patent bilaterally. L5-S1: The thecal sac has a normal diameter. No evidence of disc bulge or protrusion. The neural foramina are patent bilaterally. CONCLUSION: 1. Degenerative changes at L4-5. 2. Mild old compression fracture at L5. Kevin Harper MD on October 11, 2016 at 21:11 Board Certified Radiologist. This report was verified electronically.
[2016-10-11] MEDS ORDERED: HYDROmorphone HCL PF 2 MG/ML VIAL IV PUSH ONE (22:00)
--- NOTE | 2016-10-11 22:12 | PD ---
HPI Chief Complaint: Back/ Neck Pain or Injury Time Seen by Provider: 18:39 Travel History International Travel<30 days: No Contact w/Intl Traveler<30days: No Traveled to known affect area: No History of Present Illness HPI Patient is a 26 year old male, with history of Hemophilia A, who comes in complaining of right hip pain wrapping around into his back. He says he is concerned he is having bleeding in his psoas muscle, which he has had in the past. Normally, he takes Feiba in the morning and Novoseven in the evenings. For the past two days, he took Feiba every eight hours for one day then the novoseven every 6 hours the second day because he was concerned he was bleeding. He takes a large amount of pain medicine daily. He denies any trauma or falls. PFSH Past Medical History Arthritis: Yes Blood Disorders: Yes (HEMOPHILIA A ) Diminished Hearing: No Gastrointestinal Disorders: Yes Genitourinary: No Musculoskeletal: Yes Neurologic: No Reproductive: No Respiratory: No Ulcer: Yes Tetanus Vaccination: Unknown Past Surgical History Other Surgery: Yes (MEDIPORT, I&D LEFT KNEE ) Social History Alcohol Use: No Tobacco Use: Yes (1 PPD ) Substance Use: No Allergies-Medications (Allergen,Severity, Reaction): Coded Allergies: Nonsteroidal Anti-Inflammatory Agts (Verified Adverse Reaction, Severe, bleeding, 09/15/16) Reported Meds & Prescriptions Reported Meds & Active Scripts Active Nicotine Polacrilex 4 Mg Gum 4 Mg CHEW Q3HR PRN 30 Days Pantoprazole (Pantoprazole Sodium) 40 Mg Tab 40 Mg PO DAILY 30 Days Oxycodone (Oxycodone HCl) 30 Mg Tab 30 Mg PO Q12 PRN Novoseven Rt Inj (Factor VIIa (Recombinant)) 1 Mg Inj 10 Mcg IV EVERY OTHER DAY 12 Days Reported Xanax (Alprazolam) 0.25 Mg Tab 0.25 Mg PO BID PRN Feiba NF Inj (Antiinhibitor Coagulant Complex Inj) 500 Units Inj 7,342 Units INJ EVERY OTHER DAY Review of Systems Except as stated in HPI: all other systems reviewed are Neg General / Constitutional: No: Fever, Chills HENT: No: Headaches, Lightheadedness Cardiovascular: No: Chest Pain or Discomfort Respiratory: No: Shortness of Breath Gastrointestinal: No: Nausea, Vomiting Musculoskeletal: Positive: Pain Skin: No Change in Pigmentation Neurologic: No: Weakness, Dizziness Physical Exam Narrative GENERAL: Awake and alert, in mild distress due to pain SKIN: Warm and dry. No obvious bruising of the hip. HEAD: Atraumatic. Normocephalic. EYES: Pupils equal and round. No scleral icterus. ENT: Mucous membranes pink and moist. NECK: Trachea midline. No JVD. CARDIOVASCULAR: Regular rate and rhythm. No murmur appreciated. RESPIRATORY: No accessory muscle use. Clear to auscultation. Breath sounds equal bilaterally. GASTROINTESTINAL: Abdomen soft, non-tender, nondistended. MUSCULOSKELETAL: Elbow and knee joints are stiff, chronic. No obvious joint swelling. Pain with movement of any joint. NEUROLOGICAL: Awake and alert. No obvious cranial nerve deficits. Motor grossly within normal limits. Normal speech. PSYCHIATRIC: Appropriate mood and affect; insight and judgment normal. Data Data Last Documented VS Vital Signs Date Time Temp Pulse Resp B/P Pulse Ox O2 Delivery O2 Flow Rate FiO2 10/11/16 22:16 16 10/11/16 18:55 112 126/[address] Abd/Pel W Iv Contrast(Rout) (10/11/16 ) Complete Blood Count With Diff (10/11/16 18:47) Basic Metabolic Panel (Bmp) (10/11/16 18:47) Act Partial Throm Time (Ptt) (10/11/16 18:47) Prothrombin Time / Inr (Pt) (10/11/16 18:47) Type And Screen (10/11/16 18:47) Hydromorphone Pf Inj (Dilaudid Pf Inj) (10/11/16 19:00) Ct Lumb Spine W/O Contrast (10/11/16 ) Vascular Access Team Consult PRN (10/11/16 19:16) Red Blood Cells (Rbc) (10/11/16 18:55) Hydromorphone Pf Inj (Dilaudid Pf Inj) (10/11/16 20:15) Hydromorphone Pf Inj (Dilaudid Pf Inj) (10/11/16 21:00) Iohexol 350 Inj (Omnipaque 350 Inj) (10/11/16 21:02) Hydromorphone Pf Inj (Dilaudid Pf Inj) (10/11/16 22:00) Admit Order (Ed Use Only) (10/11/16 ) Labs Laboratory Tests Test 10/11/16 18:55 White Blood Count 14.7 TH/MM3 Red Blood Count 5.13 MIL/MM3 Hemoglobin 15.3 GM/DL Hematocrit 44.0 % Mean Corpuscular Volume 85.9 FL Mean Corpuscular Hemoglobin 29.7 PG Mean Corpuscular Hemoglobin 34.6 % Concent Red Cell Distribution Width 14.4 % Platelet Count 309 TH/MM3 Mean Platelet Volume 8.0 FL Neutrophils (%) (Auto) 78.3 % Lymphocytes (%) (Auto) 15.1 % Monocytes (%) (Auto) 4.6 % Eosinophils (%) (Auto) 1.6 % Basophils (%) (Auto) 0.4 % Neutrophils # (Auto) 11.5 TH/MM3 Lymphocytes # (Auto) 2.2 TH/MM3 Monocytes # (Auto) 0.7 TH/MM3 Eosinophils # (Auto) 0.2 TH/MM3 Basophils # (Auto) 0.1 TH/MM3 CBC Comment DIFF FINAL Differential Comment Prothrombin Time 10.7 SEC Prothromb Time International 1.0 RATIO Ratio Activated Partial 86.7 SEC Thromboplast Time Sodium Level 140 MEQ/L Potassium Level 3.8 MEQ/L Chloride Level 104 MEQ/L Carbon Dioxide Level 26.2 MEQ/L Anion Gap 10 MEQ/L Blood Urea Nitrogen 6 MG/DL Creatinine 0.57 MG/DL Estimat Glomerular Filtration 174 ML/MIN Rate Random Glucose 93 MG/DL Calcium Level 9.1 MG/DL Blood Type AB POSITIVE Antibody Screen NEGATIVE Crossmatch Leukocyte-Reduced Red Blood Cells Blood Bank Comment MDM Medical Decision Making Medical Screen Exam Complete: Yes Emergency Medical Condition: Yes Medical Record Reviewed: Yes Differential Diagnosis Hemarthrosis versus iliopsoas bleeding versus arthritis Narrative Course Patient is a 26-year-old male with history of hemophilia A who comes in complaining of right hip pain and back pain. Exam shows no obvious bleeding. IV established, labs sent. Hemoglobin is 15.3. CT abdomen and pelvis performed to look for bleeding in the muscles, none is seen. There is no blood seen around the right hip either. I spoke with Dr. Sinha specifically regarding the chance that we were missing any blood on the CAT scan. He says that the bleeding should show up. Last 24 hours Impressions Lumbar Spine CT 10/11/16 0000 Signed Impressions: Service Date/Time: Tuesday, October 11, 2016 20:53 - CONCLUSION: 1. Degenerative changes at L4-5. 2. Mild old compression fracture at L5. Kevin Harper MD Abdomen/Pelvis CT 10/11/16 0000 Signed Impressions: Service Date/Time: Tuesday, October 11, 2016 20:53 - CONCLUSION: 1. Degenerative disc change is noted at the L4-5 level. 2. Severe degenerative changes in the right hip. Pj Sinha MD ADDENDUM: The study was reviewed at Dr. Basilio's request. The iliopsoas musculature is intact there is no evidence of acute hemorrhage. Pj Sinha MD I spoke with Dr. Harris about the patient. He also feels that the bleeding should show up if there is some. He advises against any increased NovoSeven or Fieba at this time. Patient given multiple doses of Dilaudid for pain control. Placed in observation for further management. Diagnosis Primary Impression: Hemophilia A Additional Impression: Joint pain Qualified Code: M25.551 - Pain of right hip joint Admitting Information Admitting Physician Requests: Laverne Zavala MD Oct 11, 2016 22:12
[2016-10-11 22:53] VITALS: BP 121/71; PULSE 75; RESP 16; O2SAT 97
--- NOTE | 2016-10-11 22:55 | HHI.HP ---
[facility] Service [facility] Primary Care Physician No Primary Care Physician Admission Diagnosis intractable pain, hemophilia A Diagnoses: (1) Hemophilia A Diagnosis: Principal (2) Intractable pain Diagnosis: Principal (3) Tobacco abuse Diagnosis: Principal Travel History International Travel<30 Days: No Contact w/Intl Traveler <30 Da: No Traveled to Known Affected Are: No History of Present Illness This is a 26-year-old male with a PMH of Hemophilia A, h/o Hemarthrosis w/ Severe Degenerative Disease, Chronic Pain and Tobacco Abuse who presented to the ER w/ complaints of hip/back pain and suspicion for bleed. 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 Recent admit 09/16-09/19/16 for hemarthrosis of left knee, s/p eval by Dr. Adam w/ whom he follows, symptoms improved w/ higher frequency of Feiba and NovoSeven, on q12h at the time of d/c. Reports right hip pain and back pain x2 days, concerned for possible bleed so increased his doses of Feiba and Andi. Today w/ persistent complaints. On arrival, BP 126/94, HR 112, O2 sat 96 % on RA, Afebrile. WBC 14.7. Hgb 15.3. Chemistry at baseline. INR 1.0. CT L -spine with degenerative changes at L4-L5, mild old compression fracture at L5. CT Abd/Pelvis w/ severe degenerative changes right hip. ER physician discussed results w/ Radiologist as pt still concerned w/ possible bleed, iliopsoas musculature noted to be intact w/ no acute hemorrhage. Dr. Harris consulted by ER physician, recommended no further intervention/medications at this time, repeat Hgb in am for trend. Review of Systems ROS: 14 point review of systems otherwise negative. Past Family Social History Past Medical History PMH: Hemophilia A, h/o Hemarthrosis w/ Severe Degenerative Disease, Chronic Pain and Tobacco Abuse Past Surgical History PAST SURGICAL HISTORY: Mediport Allergies: Coded Allergies: Nonsteroidal Anti-Inflammatory Agts (Verified Adverse Reaction, Severe, bleeding, 09/15/16) Family History PAST FAMILY HISTORY: Reviewed. No h/o DM or CAD Social History PAST SOCIAL HISTORY: Negative for alcohol or drugs. Smokes 1ppd. Physical Exam Vital Signs Vital Signs Date Time Temp Pulse Resp B/P Pulse Ox O2 Delivery O2 Flow Rate FiO2 10/11/16 22:53 75 16 121/71 97 Room Air 10/11/16 22:16 16 10/11/16 20:39 16 10/11/16 19:42 16 10/11/16 18:55 112 18 126/94 96 Room Air 10/11/16 18:44 16 Physical Exam PE: GENERAL: Pleasant young male in no acute distress. HEENT: PERRLA, EOMI. No scleral icterus or conjunctival pallor. No lid lag or facial droop. CARDIOVASCULAR: Regular rate and rhythm. No obvious murmurs to auscultation. No chest tenderness to palpation. RESPIRATORY: No obvious rhonchi or wheezing. Clear to auscultation. Breath sounds equal bilaterally. GASTROINTESTINAL: Abdomen soft, non-tender, nondistended. BS normal. MUSCULOSKELETAL: Extremities without clubbing, cyanosis, or edema. No obvious deformities. NEUROLOGICAL: Awake, alert and oriented x4. No focal neurologic deficits. Moving both upper and lower extremities spontaneously. Laboratory Laboratory Tests Test 10/11/16 18:55 White Blood Count 14.7 Red Blood Count 5.13 Hemoglobin 15.3 Hematocrit 44.0 Mean Corpuscular Volume 85.9 Mean Corpuscular Hemoglobin 29.7 Mean Corpuscular Hemoglobin 34.6 Concent Red Cell Distribution Width 14.4 Platelet Count 309 Mean Platelet Volume 8.0 Neutrophils (%) (Auto) 78.3 Lymphocytes (%) (Auto) 15.1 Monocytes (%) (Auto) 4.6 Eosinophils (%) (Auto) 1.6 Basophils (%) (Auto) 0.4 Neutrophils # (Auto) 11.5 Lymphocytes # (Auto) 2.2 Monocytes # (Auto) 0.7 Eosinophils # (Auto) 0.2 Basophils # (Auto) 0.1 CBC Comment DIFF FINAL Differential Comment Prothrombin Time 10.7 Prothromb Time International 1.0 Ratio Activated Partial 86.7 Thromboplast Time Sodium Level 140 Potassium Level 3.8 Chloride Level 104 Carbon Dioxide Level 26.2 Anion Gap 10 Blood Urea Nitrogen 6 Creatinine 0.57 Estimat Glomerular Filtration 174 Rate Random Glucose 93 Calcium Level 9.1 Blood Type AB POSITIVE Antibody Screen NEGATIVE Crossmatch Leukocyte-Reduced Red Blood Cells Blood Bank Comment Result Diagram: 10/11/16185410/11/161854 Assessment and Plan Problem List: (1) Hemophilia A ICD Code: D66 Status: Acute (2) Intractable pain ICD Code: R52 Status: Acute (3) Tobacco abuse ICD Code: Z72.0 Status: Acute Assessment and Plan A/P: 1. 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 Now w/ recurrent pain and concern for bleeding. CT L- Spine w/ degenerative changes, CT Abd/Pelvis w/ severe degenerative changes right hip, images reviewed by me. Iliopsoas musculature noted to be intact w/ no evidence of bleed. ER physician consulted Dr. Harris, recommended no further intervention/treatment at this time. Will trend Hgb, currently 15.3. Resume home medications. Will place formal consult for Dr. Adam to [facility]. 2. Intractable Pain: secondary to severe degenerative disease from recurrent hemarthrosis. Resume home Oxycodone, anxiolytics. 3. Tobacco Abuse: Pt counselled. Nicorette Gum. 4. DVT Prophylaxis: SCD/Teds. 5. Social work for d/c planning as needed. 6. Case discussed w/ ER physician at length. Judith Underwood MD Oct 11, 2016 22:55
[2016-10-11] MEDS ORDERED: BISACODYL 10 MG SUPP PR PRN (23:00)
[2016-10-11] MEDS ORDERED: ONDANSETRON HCL 4 MG/2 ML VIAL IVP PRN (23:00)
[2016-10-11] MEDS ORDERED: ACETAMINOPHEN 325 MG TAB PO PRN (23:00)
[2016-10-12 00:45] VITALS: BP 138/90; PULSE 87; TEMP 98.1; O2SAT 98
[2016-10-12] MEDS: ALPRAZolam 0.25 MG TAB PO PRN ×2 (01:41→13:07)
[2016-10-12] MEDS: SODIUM CHLORIDE 0.9% FLUSH 5 ML FLUSH FLUSH PRN ×2 (01:41→05:20)
[2016-10-12] MEDS: NICOTINE 4 MG/GUM CHEW PRN ×5 (01:41→21:27)
[2016-10-12] MEDS: HYDROmorphone HCL PF 1 MG/ML VIAL IV PRN ×7 (01:42→22:19)
[2016-10-12 04:27] VITALS: BP 129/72; PULSE 71; RESP 22; TEMP 98.1; O2SAT 97
[2016-10-12 05:28] LABS: AUTOMATED NEUTROPHIL # 5.8 TH/MM3 (1.8-7.7); BASOPHIL # 0.1 TH/MM3 (0-0.2); BASOPHIL % 0.7 % (0.0-2.0); EOSINOPHIL # 0.4 TH/MM3 (0-0.4); EOSINOPHIL % 4.2 % (0.0-4.0); HEMATOCRIT 39.8 % (39.0-51.0); HEMO FLAGS DIFF FINAL; LYMPH % 30.7 % (9.0-44.0); LYMPHOCYTE # 3.1 TH/MM3 (1.0-4.8); MEAN CELL VOLUME 85.5 FL (80.0-100.0); MEAN CORPUSCULAR HEMOGLOBIN 29.8 PG (27.0-34.0); MEAN CORPUSCULAR HGB CONC 34.8 % (32.0-36.0); MONO % 6.3 % (0.0-8.0); NEUT % 58.1 % (16.0-70.0); PLATELET COUNT 262 TH/MM3 (150-450); RED BLOOD COUNT 4.66 MIL/MM3 (4.50-5.90); RED CELL DISTRIBUTION WIDTH 14.2 % (11.6-17.2)
[2016-10-12 06:09] LABS: ALT (GPT) 24 U/L (12-78); ANION GAP 8 MEQ/L (5-15); AST (GOT) 9 U/L (15-37); BICARBONATE 29.2 MEQ/L (21.0-32.0); BLOOD UREA NITROGEN 9 MG/DL (7-18); CHLORIDE 103 MEQ/L (98-107); GLOMERULAR FILTRATION RATE 207 ML/MIN (>89); POTASSIUM 3.6 MEQ/L (3.5-5.1); SODIUM (NA) 140 MEQ/L (136-145)
[2016-10-12 06:11] LABS: ALKALINE PHOSPHATASE 107 U/L (45-117); TOTAL BILIRUBIN ADULT 0.4 MG/DL (0.2-1.0)
[2016-10-12] MEDS: PANTOPRAZOLE SOD 40 MG DELAYED RELEASE TAB PO SCH (08:09)
[2016-10-12] MEDS: SODIUM CHLORIDE 0.9% FLUSH 5 ML FLUSH FLUSH SCH ×2 (08:10→21:27)
--- NOTE | 2016-10-12 08:12 | HHI.PR ---
Subjective Remarks Follow-up for hemophilia, back and hip pain. Patient states that for the past 2 days his been having worsening hip and back pain. He states normally he has chronic dull throbbing sensation in his right hip. However for the past few days she's been having intermittent sharp stabbing pains. He's concerned he says he's had similar symptoms with iliopsoas bleeding in the past. At home for the past few days he increased his Feiba and NovoSeven doses on his own. He denies any injury or increased activity. He does state that because of the pain he has been less mobile. He states that his medication list here is incorrect and he is on higher doses of narcotics at home, gets his prescriptions at [facility] on [address]. Recently relocated from [place]. He had been seen by orthopedics and there, unable to do any surgery secondary to bleeding risk. He states that physical therapy causes him to have bleeding. Ambulates okay with crutches. Discussed with RN at bedside, will update med rec. The patient states his hemoglobin is normally around 13. Objective Vitals Vital Signs Date Time Temp Pulse Resp B/P Pulse Ox O2 Delivery O2 Flow Rate FiO2 10/12/16 04:27 98.1 71 22 129/72 97 10/12/16 00:45 98.1 87 138/90 98 10/11/16 22:58 16 10/11/16 22:53 75 16 121/71 97 Room Air 10/11/16 22:16 16 10/11/16 20:39 16 10/11/16 19:42 16 10/11/16 18:55 112 18 126/94 96 Room Air 10/11/16 18:44 16 Result Diagram: 10/12/16 0450 10/12/16 0450 Imaging Last Impressions Lumbar Spine CT 10/11/16 0000 Signed Impressions: Service Date/Time: Tuesday, October 11, 2016 20:53 - CONCLUSION: 1. Degenerative changes at L4-5. 2. Mild old compression fracture at L5. Kevin Harper MD Abdomen/Pelvis CT 10/11/16 0000 Signed Impressions: Service Date/Time: Tuesday, October 11, 2016 20:53 - CONCLUSION: 1. Degenerative disc change is noted at the L4-5 level. 2. Severe degenerative changes in the right hip. Pj Sinha MD ADDENDUM: The study was reviewed at Dr. Basilio's request. The iliopsoas musculature is intact there is no evidence of acute hemorrhage. Pj Sinha MD Objective Remarks GENERAL: Well-developed well-nourished. In no acute distress. SKIN: Warm and dry. Port in place on left chest. HEENT: Normocephalic. Pupils equal and round. Mucous membranes pink and moist. CARDIOVASCULAR: Regular rate and rhythm. No murmur appreciated. RESPIRATORY: No accessory muscle use. Clear to auscultation. Breath sounds equal bilaterally. GASTROINTESTINAL: Abdomen soft, non-tender, nondistended. Bowel sounds x4. MUSCULOSKELETAL: No obvious deformities. Painful ROM right hip. No clubbing or cyanosis. No edema. NEUROLOGICAL: Awake and alert. No focal neurological deficits. Moves upper and lower extremities spontaneously. Normal speech. PSYCHIATRIC: Appropriate mood and affect; insight and judgment normal. A/P Problem List: (1) 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 (2) Intractable pain ICD Code: R52 Status: Acute (3) Tobacco abuse ICD Code: Z72.0 Status: Chronic Assessment and Plan 26-year-old male with a PMH of Hemophilia A, h/o Hemarthrosis w/ Severe Degenerative Disease, Chronic Pain and Tobacco Abuse who presented w/ complaints of hip/back pain and suspicion for bleed Hemophilia A: h/o Hemophilia A on Feiba and NovoSeven. Recent admit 09/16- for left knee hemarthrosis. Now w/ recurrent pain and concern for bleeding. Follows with Dr. Adam, ED contacted covering hematology, Dr. Harris Images reviewed: CT L-Spine w/ degenerative changes, CT Abd/Pelvis w/ severe degenerative changes right hip. Iliopsoas musculature noted by radiologist to be intact w/ no evidence of bleed. -Hemoglobin 15.3 admission, previously 13.4 on 09/19/16. Hemoglobin today 13.9. This is a drop from admission, consistent with the patient's previous baseline. Repeat H&H for trend. -Hematology contacted in the ED, recommended no further intervention/treatment at this time formal consult for hematology placed. -Continue home medications. Intractable Pain: secondary to severe degenerative disease from recurrent hemarthrosis. Patient reports he cannot have PT orthopedic intervention secondary to hemophilia. Patient reports he is on higher doses of narcotics as outpatient, discussed with RN, reconciled resume home medications. Continue IV Dilaudid as needed for breakthrough. Anxiety: Chronic. Continue Xanax as needed. GERD: Chronic, stable. Continue PPI. Tobacco Abuse: Pt counseling. Nicorette Gum. DVT Prophylaxis: SCD/Teds. Discharge Planning Follow-up repeat H&H and hematology recommendations. Redd Yin Oct 12, 2016 08:12
[2016-10-12 08:41] VITALS: BP 133/83; PULSE 83; RESP 18; TEMP 97.2; O2SAT 95
[2016-10-12] MEDS ORDERED: ANTI-INHIBITOR COAGULANT COMPLEX 100 UNIT INJ IV SCH (09:00)
[2016-10-12] MEDS ORDERED: FACTOR VIIA (RECOMB) 1 MG VIAL IV PUSH SCH (09:00)
[2016-10-12] MEDS ORDERED: OXYC30TA PO (09:35)
[2016-10-12] MEDS ORDERED: ALPR.5 PO (09:36)
[2016-10-12] MEDS ORDERED: MORP1TAB26 PO (09:38)
[2016-10-12 10:56] LABS: HEMATOCRIT 39.9 % (39.0-51.0); REVIEW FLAG FINAL
[2016-10-12 11:36] VITALS: BP 114/65; PULSE 90
[2016-10-12] MEDS ORDERED: [UNRECOGNIZED DRUG - OTHER] IV SCH (14:00)
--- NOTE | 2016-10-12 14:10 | RADRPT ---
EXAM DATE/TIME: 10/12/2016 13:36 [facility] COMPARISON: No previous studies available for comparison. INDICATIONS : Fluid collection, right hip pain. MEDICAL HISTORY : Hemophilia A. Ulcers. Arthritis. Severe degenerative disease. SURGICAL HISTORY : Left femur fracture. Right elbow surgery, fasciotomy. Mediport. ENCOUNTER: Initial ACUITY: 2 day PAIN SCORE: 10/10 LOCATION: Right hip. AREA EVALUATED: Right hip and groin region. FINDINGS: MASSES: None. FLUID COLLECTIONS: None. OTHER: Soft tissue edema. No fluid collection or abscess. CONCLUSION: Edematous tissues of the right groin without fluid collection or abscess. Kevin Harper MD on October 12, 2016 at 14:08 Board Certified Radiologist. This report was verified electronically.
[2016-10-12 16:11] VITALS: BP 118/75; PULSE 90
[2016-10-12 19:21] VITALS: BP 119/75; PULSE 86; RESP 18; TEMP 97.8; O2SAT 97
[2016-10-12] MEDS ORDERED: HYDROmorphone HCL PF 2 MG/ML VIAL IV PUSH ONE (20:15)
--- NOTE | 2016-10-12 20:53 | MB ---
cc: JENNIFER ADAM MD, ABDUL J. M.D. DATE OF CONSULTATION: 10/12/2016. REASON FOR CONSULTATION: Consult requested by Dr. Underwood for followup of hemophilia A. HISTORY OF PRESENT ILLNESS: Maximo is a 26-year-old male. He recently moved to this area from [place]. He is under the care of my associates Dr. Adam. The patient was recently admitted to the hospital about a month ago when I saw him on September 16. He was bleeding in his joints and in the iliopsoas muscle. He was treated with increased dose of NovoSeven and FEIBA. His bleeding was controlled and he was discharged to home. The patient came to the emergency room last night complaining of severe pain in the right hip and the right lower back. He thinks that he is bleeding. The ER physician has contacted me. The patient had a CT scan of the abdomen and pelvis which showed no acute abnormality seen within the abdomen or pelvis. There is a chronic disc with degenerative changes noted at L4 and L5. There is associated prominent left anterolateral osseous ridging and probable partial ankylosis noted. There is a severe right hip osteoarthritis with a joint body. The arthropathy appears chronic; it may be related to AVN. There is no acute bony abnormality noted. He also had a CT scan of the lumbar spine which showed degenerative changes at L4 and L5 with mild old compression fracture. The radiologist was asked to review the films again to make sure that he does not have iliopsoas musculature bleeding. The radiologist reviewed and the iliopsoas musculature was found to be intact and there is no evidence of acute hemorrhage noted. There was no evidence of bleeding noted. It was recommended that the patient should be admitted to the hospital for close observation with serial hemoglobin and hematocrit. He had ultrasound of the soft tissue today which showed edematous tissue of the right groin without any fluid collection or abscess. Since there was no evidence of bleeding noted, we continued him on his prophylactic dose for hemophilia A last night. The patient has been getting serial hemoglobin and hematocrit. His hemoglobin was 15.3 last evening and this morning was 13.9 and then at mid-afternoon, it was 14.2. There is no significant drop of the hemoglobin noted; however, his APTT is very prolonged at 86.7. PT and INR are normal. On his last admission, he had obvious hemarthrosis and had some bruising on his flank area. Today he does not have any bruising whatsoever that I can see but he insists that he has been bleeding internally and he has a lot of pain. His pain appears to be chronic. I am not very familiar with him. He sees Dr. Adam on a regular basis in the office. He states that Dr. Adam is aware of his condition. The patient has been getting home narcotics and also getting additional Dilaudid IV p.r.n. The patient is requesting to increase his Dilaudid and increase his Xanax. He has extreme anxiety as well. PAST MEDICAL HISTORY: 1. 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 2. High Factor VIII inhibitor titer. 3. Anxiety disorder. 4. 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 PAST SURGICAL HISTORY: 1. Infusaport placement. 2. Compartment syndrome. 3. Left femoral fracture status post surgery. 4. Left knee surgery. ALLERGIES: 1. IBUPROFEN. 2. NAPROSYN. MEDICATIONS: 1. FEIBA 7500 international units in the morning and NovoSeven 10 milligrams at nighttime; both are prophylactic doses. 2. Morphine extended-release 100 milligrams every 12 hours. 3. Oxycodone 30 milligrams IR every 4 to 6 hours. 4. He takes Xanax 0.5 milligrams three times a day. FAMILY HISTORY: The patient has three brothers, two from severe hemophilia A. The patient has no children. SOCIAL HISTORY: The patient smokes cigarettes. He does not drink alcohol. He is disabled due to hemophilia A. PHYSICAL EXAMINATION: GENERAL: This is a well-developed, well-nourished white male in moderate distress due to the pain. VITAL SIGNS: Temperature 97.8, heart rate is 86, blood pressure 119/75, 02 saturation 97%. HEAD, EYES, EARS, NOSE, THROAT: Pupils equal, round and reactive to light and accommodation. Extraocular muscles intact. Anicteric. No oral lesions are noted. NECK: No lymphadenopathy noted. LUNGS: Clear. No wheezing, rales or rhonchi. HEART: Regular rate and rhythm. ABDOMEN: Abdomen is soft. No bruises noted. EXTREMITIES: No pedal edema. NEUROLOGY: Awake, alert, oriented x3. SKIN: No significant lesions are noted. ASSESSMENT: 1. Severe hemophilia A with high inhibitor titer. 2. The patient claims that he is bleeding, but we do not have any clinical evidence of bleeding. 3. 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 PLAN: I have reviewed his records and I have discussed with the patient regarding the hemophilia. He claims that this is his typical bleeding pain. He does have chronic pain, but this is an acute pain, and he states that whenever that happens he is unable to move around. His hemoglobin remains stable. There are no bruises noted. The patient's prophylactic dose of FEIBA is 7500 international units in the morning and NovoSeven 10 milligrams at nighttime; however when he has active bleeding, he increases the FEIBA to 7500 international units every 8 hours and then the following day he takes the NovoSeven 10 milligrams every 6 hours. The patient has been doing those doses at home for the last two days. However, he claims that his pain did not improve and that is the reason he came to the emergency room. We discussed that giving too much of the Factor in fact could be counterproductive and could cause potentially thrombosis which could be detrimental. However, the patient is adamant that he is internally bleeding and he knows his body and it always happens. He claims that usually the CT scan does not show the bleeding. Since I do not know him much, I will give him the benefit of the doubt and I will increase his NovoSeven to 10 milligrams every 6 hours and we will give him the first dose now. Tomorrow we will increase his FEIBA to 7500 international units every 8 hours. I will have his primary fiber heel piece shaper, Dr. Adam, see him tomorrow morning. I will repeat the PTT today and also in the morning. CBC will be repeated in the morning as well. Will give him an extra dose of Dilaudid 2 mg IV now. I will change his xanax from 0.25 mg to 0.5 mg PO BID. Further recommendations based on his hospital stay. I have discussed the case with the patient's nurse at the bedside. Thank you for asking my opinion. Vivienne Harris MD /GAURANG /8:15 PM 8:31 PM MTDFrancisco
[2016-10-12] MEDS ORDERED: NOVOSEVEN RT IV SCH ×2 (21:00)
[2016-10-12] MEDS: NOVOSEVEN RT IV SCH (21:00)
[2016-10-12] MEDS: MORPHINE SULFATE 60 MG CONTROLLED RELEASE TAB PO SCH (21:27)
[2016-10-12] MEDS ORDERED: ALPRAZolam 0.5 MG TAB PO SCH (21:30)
[2016-10-12] MEDS ORDERED: ALPRAZolam 0.5 MG TAB PO PRN (21:45)
[2016-10-13] VITALS (7 sets, daily range): BP systolic 109–135; BP diastolic 58–74; PULSE 78–93; RESP 17–18; TEMP 96.7–98.7; O2SAT 95–98
[2016-10-13] MEDS: NICOTINE 4 MG/GUM CHEW PRN ×5 (01:17→22:24)
[2016-10-13] MEDS: HYDROmorphone HCL PF 1 MG/ML VIAL IV PRN ×2 (02:23→06:25)
[2016-10-13] MEDS: NOVOSEVEN RT IV SCH (02:37)
[2016-10-13 04:28] LABS: AUTOMATED NEUTROPHIL # 6.3 TH/MM3 (1.8-7.7); BASOPHIL % 0.4 % (0.0-2.0); EOSINOPHIL # 0.7 TH/MM3 (0-0.4); HEMATOCRIT 41.9 % (39.0-51.0); HEMO FLAGS DIFF FINAL; LYMPH % 29.5 % (9.0-44.0); LYMPHOCYTE # 3.2 TH/MM3 (1.0-4.8); MEAN CELL VOLUME 86.8 FL (80.0-100.0); MEAN CORPUSCULAR HGB CONC 33.4 % (32.0-36.0); MONO % 5.9 % (0.0-8.0); NEUT % 58.2 % (16.0-70.0); PLATELET COUNT 235 TH/MM3 (150-450); RED BLOOD COUNT 4.83 MIL/MM3 (4.50-5.90); RED CELL DISTRIBUTION WIDTH 14.3 % (11.6-17.2); WHITE BLOOD COUNT 10.9 TH/MM3 (4.0-11.0)
[2016-10-13 05:13] LABS: APTT (PATIENT) GREATER THAN 153.4 SEC (24.3-30.1)
[2016-10-13] MEDS ORDERED: ANTI-INHIBITOR COAGULANT COMPLEX 100 UNIT INJ IV SCH (06:00)
--- NOTE | 2016-10-13 07:58 | HHI.PR ---
Subjective Remarks Follow-up for hemophilia, possible bleeding, right hip and right elbow pain. The patient feels like the pain and mobility in his right hip is worse today. He denies any external swelling or ecchymosis in the right hip. Today he feels like his right elbow is swelling, painful, and difficult to move. Discussed with RN, jared Harris was notified of elevated APTT. Objective Vitals Vital Signs Date Time Temp Pulse Resp B/P Pulse Ox O2 Delivery O2 Flow Rate FiO2 10/13/16 07:12 97.6 93 18 135/66 95 10/13/16 05:09 97.8 85 18 130/58 98 10/13/16 00:16 98.7 78 18 126/74 98 10/12/16 19:21 97.8 86 18 119/75 97 10/12/16 16:11 90 118/75 10/12/16 14:44 16 10/12/16 11:36 90 114/65 10/12/16 11:36 16 10/12/16 08:41 97.2 83 18 133/83 95 Result Diagram: 10/13/16 0352 10/12/16 0450 Imaging Last Impressions Soft Tissue Ultrasound 10/12/16 0000 Signed Impressions: Service Date/Time: Wednesday, October 12, 2016 13:36 - CONCLUSION: Edematous tissues of the right groin without fluid collection or abscess. Kevin Harper MD Lumbar Spine CT 10/11/16 0000 Signed Impressions: Service Date/Time: Tuesday, October 11, 2016 20:53 - CONCLUSION: 1. Degenerative changes at L4-5. 2. Mild old compression fracture at L5. Kevin Harper MD Abdomen/Pelvis CT 10/11/16 0000 Signed Impressions: Service Date/Time: Tuesday, October 11, 2016 20:53 - CONCLUSION: 1. Degenerative disc change is noted at the L4-5 level. 2. Severe degenerative changes in the right hip. Pj Sinha MD ADDENDUM: The study was reviewed at Dr. Basilio's request. The iliopsoas musculature is intact there is no evidence of acute hemorrhage. Pj Sinha MD Objective Remarks GENERAL: Well-developed well-nourished. In no acute distress. SKIN: Warm and dry. Port in place on left chest. Some ecchymosis bilateral antecubital fossas from IV sites. HEENT: Normocephalic. Pupils equal and round. Mucous membranes pink and moist. CARDIOVASCULAR: Regular rate and rhythm. No murmur appreciated. RESPIRATORY: No accessory muscle use. Clear to auscultation. Breath sounds equal bilaterally. GASTROINTESTINAL: Abdomen soft, non-tender, nondistended. Bowel sounds x4. MUSCULOSKELETAL: No obvious deformities. Painful ROM right hip. No surrounding palpable edema right hip or right elbow. No clubbing or cyanosis. No edema. NEUROLOGICAL: Awake and alert. No focal neurological deficits. Moves upper and lower extremities spontaneously. Normal speech. PSYCHIATRIC: Appropriate mood and affect; insight and judgment normal. A/P Problem List: (1) 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 (2) Intractable pain ICD Code: R52 Status: Acute (3) Tobacco abuse ICD Code: Z72.0 Status: Chronic Assessment and Plan 26-year-old male with a PMH of Hemophilia A, h/o Hemarthrosis w/ Severe Degenerative Disease, Chronic Pain and Tobacco Abuse who presented w/ complaints of hip/back pain and suspicion for bleed Hemophilia A: h/o Hemophilia A on Feiba and NovoSeven. Recent admit 09/16- for left knee hemarthrosis. Now w/ recurrent pain and concern for bleeding. Follows with Dr. Adam, ED contacted covering hematology, Dr. Harris Images reviewed: CT L-Spine w/ degenerative changes, CT Abd/Pelvis w/ severe degenerative changes right hip. Iliopsoas musculature noted by radiologist to be intact w/ no evidence of bleed. Checked hip ultrasound showed edematous tissues, but no fluid collection consistent with bleeding. -Hemoglobin has remained stable; 15.3, 13.9, 14.2, 14.0. Baseline 13's. Monitor. -Hematology consulted, seen by Dr. Harris, appreciate input. Further care per patient's heavy equipment diesel mechanic Dr. Adam. -On therapeutic doses for bleeding of Feiba and NovoSeven -PTT elevated, hematology was contacted Intractable Pain: Acute pain on top of chronic pain from severe degenerative disease from recurrent hemarthrosis. Patient reports he cannot have PT orthopedic intervention secondary to hemophilia. Reconciled home meds, Resumed home oxycodone as needed and scheduled long-acting morphine. On IV Dilaudid 2 mg, increase to every 3 hours as needed for breakthrough. Anxiety: Chronic. Continue Xanax as needed, dose increased by hematology. GERD: Chronic, stable. Continue PPI. Tobacco Abuse: Pt counseling. Nicorette Gum. DVT Prophylaxis: SCD/Teds. Discussed with Dr. Mccabe Discharge Planning Follow-up hematology recommendations. Redd Yin Oct 13, 2016 07:58
--- NOTE | 2016-10-13 08:30 | PD.ONC.PN ---
Subjective Subjective Remarks Mr. Gonzalez was seen and examined, he reports the pain involving his right hip has worsened, he now has stiffness and increased pain involving his right elbow as well. Since admission he has received 2 doses of FEIBA. His aPTT is undetectably high (greater than 153 seconds as measured at 4 AM this morning). He denies overt bleeding. He tells me his pain is relatively uncontrolled. Objective Data Date Time Temp Pulse Resp B/P Pulse Ox O2 Delivery O2 Flow Rate FiO2 10/13/16 07:12 97.6 93 18 135/66 95 10/13/16 05:09 97.8 85 18 130/58 98 10/13/16 00:16 98.7 78 18 126/74 98 10/12/16 19:21 97.8 86 18 119/75 97 10/12/16 16:11 90 118/75 10/12/16 14:44 16 10/12/16 11:36 90 114/65 10/12/16 11:36 16 10/12/16 08:41 97.2 83 18 133/83 95 Result Diagram: 10/13/16 0352 10/12/16 0450 Laboratory Results Laboratory Tests Test 10/12/16 10/13/16 10:50 03:52 Hemoglobin 14.2 GM/DL 14.0 GM/DL Hematocrit 39.9 % 41.9 % White Blood Count 10.9 TH/MM3 Red Blood Count 4.83 MIL/MM3 Mean Corpuscular Volume 86.8 FL Mean Corpuscular Hemoglobin 29.0 PG Mean Corpuscular Hemoglobin 33.4 % Concent Red Cell Distribution Width 14.3 % Platelet Count 235 TH/MM3 Mean Platelet Volume 7.8 FL Neutrophils (%) (Auto) 58.2 % Lymphocytes (%) (Auto) 29.5 % Monocytes (%) (Auto) 5.9 % Eosinophils (%) (Auto) 6.0 % Basophils (%) (Auto) 0.4 % Neutrophils # (Auto) 6.3 TH/MM3 Lymphocytes # (Auto) 3.2 TH/MM3 Monocytes # (Auto) 0.6 TH/MM3 Eosinophils # (Auto) 0.7 TH/MM3 Basophils # (Auto) 0.0 TH/MM3 CBC Comment DIFF FINAL Differential Comment Activated Partial GREATER THAN Thromboplast Time 153.4 SEC Administered Medications Medications (Trade) Dose Ordered Sig/Mike Route PRN Reason Start Time Stop Time Status Last Admin Dose Admin IV Flush (NS Flush) 2 ml UNSCH PRN FLUSH FLUSH AFTER USING IV ACCESS 10/11/16 23:00 10/12/16 05:20 IV Flush (NS Flush) 2 ml BID FLUSH 10/12/16 09:00 10/12/16 21:27 Nicotine (Nicotine Gum) 4 mg Q3HR PRN CHEW nicotine withdrawal 10/11/16 23:00 10/13/16 07:56 Pantoprazole Sodium (Protonix) 40 mg DAILY PO 10/12/16 09:00 10/12/16 08:09 Morphine Sulfate (Oramorph Sr) 60 mg Q12HR PO 10/12/16 21:00 10/12/16 21:27 Oxycodone HCl (Roxicodone) 30 mg Q6H PRN PO PAIN 6-10 10/12/16 10:15 10/13/16 07:56 Patient Own Medication PT OWN MED: NOVOSE... Q6H IV 10/12/16 21:00 Hold 10/13/16 02:37 Alprazolam (Xanax) 0.5 mg BID PRN PO ANXIETY 10/12/16 21:45 10/12/16 22:19 Anti-Inhibitor Coagulant Complex (Feiba Nf Inj) 7,500 units Q8H IV 10/13/16 06:00 10/13/16 06:22 Objective Remarks GENERAL: Young male sitting up in bed, cradle in his right elbow, in apparent distress and discomfort. SKIN: Warm and dry. HEAD: Normocephalic. EYES: No scleral icterus. No injection or drainage. NECK: Supple, trachea midline. No JVD or lymphadenopathy. LYMPHATIC: No adenopathy. CARDIOVASCULAR: Tachycardic, S1 and S2 normal murmurs or gallops. RESPIRATORY: Good air movement bilaterally no added breath sounds. GASTROINTESTINAL: Abdomen soft, non-tender, nondistended. EXTREMITIES: No cyanosis, or edema. MUSCULOSKELETAL: Adequate muscle tone. Decreased range of motion involving the right elbow and right hip. NEUROLOGICAL: No obvious focal deficit. Awake, alert, and oriented x3. PSYCHIATRIC: Appropriate mood and affect; insight and judgment normal. No signs of overt bleeding. 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 Extensive degenerative joint disease. Generalized debility due to pain. Frequent bleeding related pain crises and frequent hospitalizations. Plan Hemophilia A complicated by high factor inhibitor titers: Continue replacement with [id number] NovoSeven and FEIBA. I have ordered stat dose of NovoSeven to be given. I changed the dosing of the factors to once every 6 hours. I've also asked the patient to have his roommate bring in his own factors from home. Pain control: I have adjusted his pain medication dosing and frequency to be a little bit more in line with what he has been taking at home. Transfer to Leno Stratton MD Oct 13, 2016 08:30
[2016-10-13] MEDS ORDERED: FACTOR VIIA (RECOMB) 5 MG VIAL IV PUSH SCH ×2 (09:00)
[2016-10-13] MEDS: SODIUM CHLORIDE 0.9% FLUSH 5 ML FLUSH FLUSH SCH ×2 (09:22→20:29)
[2016-10-13] MEDS: PANTOPRAZOLE SOD 40 MG DELAYED RELEASE TAB PO SCH (09:22)
[2016-10-13] MEDS: MORPHINE SULFATE 60 MG CONTROLLED RELEASE TAB PO SCH ×2 (09:23→20:26)
[2016-10-13] MEDS: ALPRAZolam 0.5 MG TAB PO PRN ×2 (09:23→17:34)
[2016-10-13] MEDS: HYDROmorphone HCL PF 2 MG/ML VIAL IV PRN ×5 (09:23→21:44)
[2016-10-13] MEDS ORDERED: [UNRECOGNIZED DRUG - OTHER] IV SCH (11:00)
[2016-10-13] MEDS: ANTI-INHIBITOR COAGULANT COMPLEX 100 UNIT INJ IV SCH ×2 (12:35→18:00)
[2016-10-13] MEDS: FACTOR VIIA (RECOMB) 5 MG VIAL IV PUSH SCH ×2 (15:51→21:45)
[2016-10-14] MEDS ORDERED: [UNRECOGNIZED DRUG - OTHER] IV SCH
[2016-10-14 00:24] VITALS: BP 116/84; PULSE 102; RESP 18; TEMP 97.7; O2SAT 93
[2016-10-14] MEDS: HYDROmorphone HCL PF 2 MG/ML VIAL IV PRN ×8 (00:45→21:39)
[2016-10-14] MEDS: ALPRAZolam 0.5 MG TAB PO PRN ×3 (00:45→16:58)
[2016-10-14] MEDS: NOVOSEVEN RT IV SCH ×4 (02:49→21:39)
[2016-10-14 04:00] VITALS: BP 109/75; PULSE 83; RESP 18; TEMP 96.9; O2SAT 97
[2016-10-14] MEDS: NICOTINE 4 MG/GUM CHEW PRN ×4 (04:37→16:58)
[2016-10-14] MEDS: ANTI-INHIBITOR COAGULANT COMPLEX 100 UNIT INJ IV SCH ×2 (06:00→12:00)
[2016-10-14 06:02] LABS: BASOPHIL % 0.4 % (0.0-2.0); EOSINOPHIL # 0.6 TH/MM3 (0-0.4); EOSINOPHIL % 5.7 % (0.0-4.0); HEMATOCRIT 40.1 % (39.0-51.0); HEMO FLAGS DIFF FINAL; LYMPH % 22.8 % (9.0-44.0); LYMPHOCYTE # 2.5 TH/MM3 (1.0-4.8); MEAN CELL VOLUME 85.7 FL (80.0-100.0); MONO % 6.6 % (0.0-8.0); NEUT % 64.5 % (16.0-70.0); PLATELET COUNT 204 TH/MM3 (150-450); RED BLOOD COUNT 4.68 MIL/MM3 (4.50-5.90); RED CELL DISTRIBUTION WIDTH 13.9 % (11.6-17.2); WHITE BLOOD COUNT 10.9 TH/MM3 (4.0-11.0)
[2016-10-14 06:09] LABS: APTT (PATIENT) 58.1 SEC (24.3-30.1)
[2016-10-14] MEDS: [UNRECOGNIZED DRUG - OTHER] IV SCH ×5 (06:19→23:45)
[2016-10-14 07:29] VITALS: BP 119/88; PULSE 78; RESP 20; TEMP 97.2; O2SAT 96
[2016-10-14] MEDS: MORPHINE SULFATE 60 MG CONTROLLED RELEASE TAB PO SCH ×2 (08:47→21:40)
[2016-10-14] MEDS: PANTOPRAZOLE SOD 40 MG DELAYED RELEASE TAB PO SCH (08:47)
--- NOTE | 2016-10-14 08:56 | PD.ONC.PN ---
Subjective Subjective Remarks Patient was seen and examined today, he reports his pain persists and may in fact be somewhat worse today than it was yesterday. He tells me his pain is focused around his right flank and right hip. He also reports pain and swelling of his right elbow. At the time of examination he was sitting double up in bed. Objective Data Date Time Temp Pulse Resp B/P Pulse Ox O2 Delivery O2 Flow Rate FiO2 10/14/16 07:29 97.2 78 20 119/88 96 10/14/16 04:00 96.9 83 18 109/75 97 10/14/16 00:24 97.7 102 18 116/84 93 10/13/16 20:00 97.6 91 17 118/66 96 10/13/16 16:00 97.8 84 18 115/72 96 10/13/16 12:00 97.5 87 18 109/68 96 10/13/16 10:15 96.7 90 18 111/69 97 10/14/16 10/14/16 10/14/16 07:00 15:00 23:00 Intake Total 600 ml Balance 600 ml Result Diagram: 10/14/16 0445 10/12/16 0450 Laboratory Results Laboratory Tests Test 10/14/16 04:45 White Blood Count 10.9 TH/MM3 Red Blood Count 4.68 MIL/MM3 Hemoglobin 14.0 GM/DL Hematocrit 40.1 % Mean Corpuscular Volume 85.7 FL Mean Corpuscular Hemoglobin 30.0 PG Mean Corpuscular Hemoglobin 35.0 % Concent Red Cell Distribution Width 13.9 % Platelet Count 204 TH/MM3 Mean Platelet Volume 8.0 FL Neutrophils (%) (Auto) 64.5 % Lymphocytes (%) (Auto) 22.8 % Monocytes (%) (Auto) 6.6 % Eosinophils (%) (Auto) 5.7 % Basophils (%) (Auto) 0.4 % Neutrophils # (Auto) 7.0 TH/MM3 Lymphocytes # (Auto) 2.5 TH/MM3 Monocytes # (Auto) 0.7 TH/MM3 Eosinophils # (Auto) 0.6 TH/MM3 Basophils # (Auto) 0.0 TH/MM3 CBC Comment DIFF FINAL Differential Comment Activated Partial 58.1 SEC Thromboplast Time Administered Medications Medications (Trade) Dose Ordered Sig/Mike Route PRN Reason Start Time Stop Time Status Last Admin Dose Admin IV Flush (NS Flush) 2 ml UNSCH PRN FLUSH FLUSH AFTER USING IV ACCESS 10/11/16 23:00 10/12/16 05:20 IV Flush (NS Flush) 2 ml BID FLUSH 10/12/16 09:00 10/13/16 20:29 Nicotine (Nicotine Gum) 4 mg Q3HR PRN CHEW nicotine withdrawal 10/11/16 23:00 10/14/16 04:37 Pantoprazole Sodium (Protonix) 40 mg DAILY PO 10/12/16 09:00 10/13/16 09:22 Morphine Sulfate (Oramorph Sr) 60 mg Q12HR PO 10/12/16 21:00 10/13/16 20:26 Patient Own Medication PT OWN MED: NOVOSE... Q6H IV 10/12/16 21:00 10/14/16 02:49 Hydromorphone HCl (Dilaudid Pf Inj) 2 mg Q3H PRN IV BREAKTHROUGH PAIN 10/13/16 08:00 10/14/16 06:44 Alprazolam (Xanax) 0.5 mg Q8H PRN PO ANXIETY 10/13/16 09:00 10/14/16 00:45 Anti-Inhibitor Coagulant Complex (Feiba Nf Inj) 7,500 units Q6HR IV 10/13/16 12:00 10/13/16 18:00 Oxycodone HCl (Roxicodone) 30 mg Q4HR PRN PO PAIN 6-10 10/13/16 09:00 10/14/16 04:37 Factor VII (Pha) (Novoseven Rt Inj) 10 mg Q6H IV PUSH 10/13/16 15:00 Hold 10/13/16 21:45 Patient Own Medication PT OWN MED: FEIBA ADMINIS... Q6H IV 10/14/16 00:00 10/14/16 06:19 Objective Remarks GENERAL: Young male sitting up in bed, cradling his right elbow, in apparent distress and discomfort. SKIN: Warm and dry. HEAD: Normocephalic. EYES: No scleral icterus. No injection or drainage. NECK: Supple, trachea midline. No JVD or lymphadenopathy. LYMPHATIC: No adenopathy. CARDIOVASCULAR: Tachycardic, S1 and S2 normal murmurs or gallops. RESPIRATORY: Good air movement bilaterally no added breath sounds. GASTROINTESTINAL: Abdomen soft, non-tender, nondistended. EXTREMITIES: No cyanosis, or edema. MUSCULOSKELETAL: Adequate muscle tone. Decreased range of motion involving the right elbow and right hip. NEUROLOGICAL: No obvious focal deficit. Awake, alert, and oriented x3. PSYCHIATRIC: Appropriate mood and affect; insight and judgment normal. No signs of overt bleeding. 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 Extensive degenerative joint disease. Generalized debility due to pain. Frequent bleeding related pain crises and frequent hospitalizations. Plan Hemophilia A complicated by high factor inhibitor titers: Continue replacement with [id number] NovoSeven and FEIBA. I changed the dosing of the factors to once every 6 hours. I've also asked the patient to have his roommate bring in his own factors from home. PTT on 10/14/2016 was approximately 55 seconds itches a significant improvement from undetectable to high levels on 10/13/2016. Continue [id number] factor inhibitor dosing as long as his pain continues. Pain control: I have adjusted his pain medication dosing and frequency to be a little bit more in line with what he has been taking at home. Leno Adam MD Oct 14, 2016 08:56
[2016-10-14] MEDS: SODIUM CHLORIDE 0.9% FLUSH 5 ML FLUSH FLUSH SCH ×2 (08:59→21:47)
[2016-10-14 12:00] VITALS: BP 123/83; PULSE 94; RESP 20; TEMP 97.9; O2SAT 94
[2016-10-14 16:00] VITALS: BP 97/60; PULSE 84; RESP 18; TEMP 98.1; O2SAT 95
--- NOTE | 2016-10-14 18:01 | HHI.PR ---
Subjective Remarks Patient seen today around 11 AM. He denies any chest pain or shortness of breath. He reports increasing and excruciating pain in the right elbow, right hip. Denies any external bleeding. Objective Vital Signs Date Time Temp Pulse Resp B/P Pulse Ox O2 Delivery O2 Flow Rate FiO2 10/14/16 16:00 98.1 84 18 97/60 95 10/14/16 12:00 97.9 94 20 123/83 94 10/14/16 07:29 97.2 78 20 119/88 96 10/14/16 04:00 96.9 83 18 109/75 97 10/14/16 00:24 97.7 102 18 116/84 93 10/13/16 20:00 97.6 91 17 118/66 96 I/O 10/13/16 10/13/16 10/13/16 10/14/16 10/14/16 10/14/16 07:00 15:00 23:00 07:00 15:00 23:00 Intake Total 600 ml 600 ml 1980 ml Balance 600 ml 600 ml 1980 ml Intake Oral 600 ml 600 ml 1980 ml # Voids 2 3 4 Result Diagram: 10/14/16 0445 10/12/16 0450 Objective Remarks GENERAL: patient sitting up in bed. Appears uncomfortable. He is alert and oriented 3. SKIN: Warm and dry. HEAD: Normocephalic. EYES: No scleral icterus. No injection or drainage. NECK: Supple, trachea midline. No JVD or lymphadenopathy. CARDIOVASCULAR: Regular rate and rhythm without murmurs, gallops, or rubs. RESPIRATORY: Breath sounds equal bilaterally. No accessory muscle use. GASTROINTESTINAL: Abdomen soft, non-tender, nondistended. MUSCULOSKELETAL: No cyanosis, or edema. patient unable to manipulate right arm or right hip secondary to pain. BACK: Nontender without obvious deformity. No CVA tenderness. A/P Assessment and Plan 10/14/16 -Uncontrolled pain from hemarthrosis. MS Contin increased. -Appreciate hematology assistance. 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 Recent admit 09/16-09/19 for left knee hemarthrosis. Now w/ recurrent pain and concern for bleeding. Follows with Dr. Adam, ED contacted covering hematology, Dr. Harris Images reviewed: CT L-Spine w/ degenerative changes, CT Abd/Pelvis w/ severe degenerative changes right hip. Iliopsoas musculature noted by radiologist to be intact w/ no evidence of bleed. Checked hip ultrasound showed edematous tissues, but no fluid collection consistent with bleeding. -Hemoglobin has remained stable; 15.3, 13.9, 14.2, 14.0. Baseline 13's. Monitor. -Hematology consulted, seen by Dr. Harris, appreciate input. Further care per patient's research affiliate Dr. Adam. -On therapeutic doses for bleeding of Feiba and NovoSeven -PTT elevated, hematology was contacted -10/14. Continues with factor replacement as per hematology. Suspected hemarthrosis of right elbow, right hip, hemoglobin stable. Uncontrolled pain-- > MS Contin increased. /Intractable Pain: Acute pain on top of chronic pain from severe degenerative disease from recurrent hemarthrosis. Patient reports he cannot have PT orthopedic intervention secondary to hemophilia. Reconciled home meds, Resumed home oxycodone as needed and scheduled long-acting morphine. On IV Dilaudid 2 mg, increase to every 3 hours as needed for breakthrough. -10/14 Uncontrolled pain--> MS Contin increased. Anxiety: Chronic. Continue Xanax as needed, dose increased by hematology. -Stable. Continue to monitor. GERD: Chronic, stable. Continue PPI. Tobacco Abuse: Pt counseling. Nicorette Gum. DVT Prophylaxis: SCD/Teds. Discharge Planning order physical therapy evaluation. Ned Ling MD Oct 14, 2016 18:01
[2016-10-14 20:00] VITALS: BP 139/85; PULSE 92; RESP 18; TEMP 97.4; O2SAT 96
[2016-10-14] MEDS: MORPHINE SULFATE 15 MG CONTROLLED RELEASE TAB PO SCH (21:40)
[2016-10-15] VITALS: BP 149/81; PULSE 96; RESP 16; TEMP 97.7; O2SAT 94
[2016-10-15] MEDS: HYDROmorphone HCL PF 2 MG/ML VIAL IV PRN ×8 (00:55→22:48)
[2016-10-15] MEDS: ALPRAZolam 0.5 MG TAB PO PRN ×3 (00:55→17:23)
[2016-10-15 04:00] VITALS: BP 148/91; PULSE 96; RESP 17; TEMP 97; O2SAT 98
[2016-10-15] MEDS: NOVOSEVEN RT IV SCH ×4 (04:06→20:43)
[2016-10-15] MEDS: NICOTINE 4 MG/GUM CHEW PRN (04:41)
[2016-10-15 05:47] LABS: AUTOMATED NEUTROPHIL # 8.3 TH/MM3 (1.8-7.7); BASOPHIL # 0.1 TH/MM3 (0-0.2); BASOPHIL % 0.5 % (0.0-2.0); EOSINOPHIL # 0.7 TH/MM3 (0-0.4); EOSINOPHIL % 5.5 % (0.0-4.0); HEMATOCRIT 41.7 % (39.0-51.0); LYMPH % 19.3 % (9.0-44.0); LYMPHOCYTE # 2.3 TH/MM3 (1.0-4.8); MEAN CELL VOLUME 87.1 FL (80.0-100.0); MEAN CORPUSCULAR HEMOGLOBIN 29.6 PG (27.0-34.0); MEAN CORPUSCULAR HGB CONC 34.1 % (32.0-36.0); MONO % 6.7 % (0.0-8.0); PLATELET COUNT 179 TH/MM3 (150-450); RED BLOOD COUNT 4.79 MIL/MM3 (4.50-5.90); RED CELL DISTRIBUTION WIDTH 14.4 % (11.6-17.2); WHITE BLOOD COUNT 12.2 TH/MM3 (4.0-11.0)
[2016-10-15 06:23] LABS: BICARBONATE 29.9 MEQ/L (21.0-32.0); POTASSIUM 3.9 MEQ/L (3.5-5.1)
[2016-10-15] MEDS: [UNRECOGNIZED DRUG - OTHER] IV SCH ×3 (06:48→18:26)
[2016-10-15 06:54] LABS: HEMO FLAGS AUTO DIFF
[2016-10-15 07:02] LABS: SCAN/DIFF AUTO DIFF CONFIRMED
[2016-10-15 08:00] VITALS: BP_SYST 122; BP_SYST 126; BP_DIAS 76; BP_DIAS 86; PULSE 88; PULSE 90; RESP 18; RESP 22; TEMP 97.1; TEMP 97.6; O2SAT 94; O2SAT 96
[2016-10-15] MEDS: PANTOPRAZOLE SOD 40 MG DELAYED RELEASE TAB PO SCH (09:16)
[2016-10-15] MEDS: MORPHINE SULFATE 60 MG CONTROLLED RELEASE TAB PO SCH ×2 (09:17→20:44)
[2016-10-15] MEDS: MORPHINE SULFATE 15 MG CONTROLLED RELEASE TAB PO SCH ×2 (09:17→20:44)
[2016-10-15] MEDS: SODIUM CHLORIDE 0.9% FLUSH 5 ML FLUSH FLUSH SCH ×2 (09:18→20:44)
[2016-10-15] MEDS: AMOXICILLIN/CLAVULANATE K 875 MG TAB PO SCH ×2 (10:30→20:44)
[2016-10-15 11:41] VITALS: BP 153/102; PULSE 102; RESP 22; TEMP 97.8; O2SAT 96
[2016-10-15 16:00] VITALS: BP 127/89; PULSE 96; RESP 20; TEMP 98; O2SAT 95
--- NOTE | 2016-10-15 18:47 | PD.ONC.PN ---
Subjective Subjective Remarks Mr. Gonzalez was seen and examined at 8:00am today. This note reflects the findings and examination at that time. S: Continued pain involving the R elbow and R hip. Mobility of the joints remains poor. Pain control, is reasonable. He denies overt bleeding. Objective Data Date Time Temp Pulse Resp B/P Pulse Ox O2 Delivery O2 Flow Rate FiO2 10/15/16 16:00 98.0 96 20 127/89 95 10/15/16 11:41 97.8 102 22 153/102 96 10/15/16 08:00 97.6 90 18 122/86 96 10/15/16 07:26 16 10/15/16 05:40 18 10/15/16 04:00 97.0 96 17 148/91 98 10/15/16 00:00 97.7 96 16 149/81 94 10/14/16 22:40 18 10/14/16 22:40 18 10/14/16 20:00 97.4 92 18 139/85 96 10/15/16 10/15/16 10/15/16 07:00 15:00 23:00 Intake Total 550 ml 2120 ml 360 ml Balance 550 ml 2120 ml 360 ml Result Diagram: 10/15/16 0448 10/15/16 0448 Laboratory Results Laboratory Tests Test 10/15/16 04:48 White Blood Count 12.2 TH/MM3 Red Blood Count 4.79 MIL/MM3 Hemoglobin 14.2 GM/DL Hematocrit 41.7 % Mean Corpuscular Volume 87.1 FL Mean Corpuscular Hemoglobin 29.6 PG Mean Corpuscular Hemoglobin 34.1 % Concent Red Cell Distribution Width 14.4 % Platelet Count 179 TH/MM3 Mean Platelet Volume 8.0 FL Neutrophils (%) (Auto) 68.0 % Lymphocytes (%) (Auto) 19.3 % Monocytes (%) (Auto) 6.7 % Eosinophils (%) (Auto) 5.5 % Basophils (%) (Auto) 0.5 % Neutrophils # (Auto) 8.3 TH/MM3 Lymphocytes # (Auto) 2.3 TH/MM3 Monocytes # (Auto) 0.8 TH/MM3 Eosinophils # (Auto) 0.7 TH/MM3 Basophils # (Auto) 0.1 TH/MM3 CBC Comment AUTO DIFF Differential Comment AUTO DIFF CONFIRMED Sodium Level 138 MEQ/L Potassium Level 3.9 MEQ/L Chloride Level 100 MEQ/L Carbon Dioxide Level 29.9 MEQ/L Anion Gap 8 MEQ/L Blood Urea Nitrogen 8 MG/DL Creatinine 0.58 MG/DL Estimat Glomerular Filtration 171 ML/MIN Rate Random Glucose 106 MG/DL Calcium Level 9.8 MG/DL Administered Medications Medications (Trade) Dose Ordered Sig/Mike Route PRN Reason Start Time Stop Time Status Last Admin Dose Admin IV Flush (NS Flush) 2 ml UNSCH PRN FLUSH FLUSH AFTER USING IV ACCESS 10/11/16 23:00 10/12/16 05:20 IV Flush (NS Flush) 2 ml BID FLUSH 10/12/16 09:00 10/15/16 09:18 Nicotine (Nicotine Gum) 4 mg Q3HR PRN CHEW nicotine withdrawal 10/11/16 23:00 10/15/16 04:41 Pantoprazole Sodium (Protonix) 40 mg DAILY PO 10/12/16 09:00 10/15/16 09:16 Patient Own Medication PT OWN MED: NOVOSE... Q6H IV 10/12/16 21:00 10/15/16 15:32 Hydromorphone HCl (Dilaudid Pf Inj) 2 mg Q3H PRN IV BREAKTHROUGH PAIN 10/13/16 08:00 10/15/16 16:14 Alprazolam (Xanax) 0.5 mg Q8H PRN PO ANXIETY 10/13/16 09:00 10/15/16 17:23 Anti-Inhibitor Coagulant Complex (Feiba Nf Inj) 7,500 units Q6HR IV 10/13/16 12:00 Hold 10/13/16 18:00 Oxycodone HCl (Roxicodone) 30 mg Q4HR PRN PO PAIN 6-10 10/13/16 09:00 10/15/16 17:24 Factor VII (Pha) (Novoseven Rt Inj) 10 mg Q6H IV PUSH 10/13/16 15:00 Hold 10/13/16 21:45 Patient Own Medication PT OWN MED: FEIBA ADMINIS... Q6H IV 10/14/16 00:00 10/15/16 18:26 Morphine Sulfate (Oramorph Sr) 60 mg Q12HR PO 10/14/16 21:00 10/15/16 09:17 Morphine Sulfate (Oramorph Sr) 15 mg Q12HR PO 10/14/16 21:00 10/15/16 09:17 Amoxicillin/ Clavulanate Potassium (Augmentin) 875 mg Q12HR PO 10/15/16 10:30 10/15/16 10:30 Objective Remarks GENERAL: Young male sitting up in bed, cradling his right elbow, in apparent distress and discomfort. SKIN: Warm and dry. HEAD: Normocephalic. EYES: No scleral icterus. No injection or drainage. NECK: Supple, trachea midline. No JVD or lymphadenopathy. LYMPHATIC: No adenopathy. CARDIOVASCULAR: Tachycardic, S1 and S2 normal murmurs or gallops. RESPIRATORY: Good air movement bilaterally no added breath sounds. GASTROINTESTINAL: Abdomen soft, non-tender, nondistended. EXTREMITIES: No cyanosis, or edema. MUSCULOSKELETAL: Adequate muscle tone. Decreased range of motion involving the right elbow and right hip. NEUROLOGICAL: No obvious focal deficit. Awake, alert, and oriented x3. PSYCHIATRIC: Appropriate mood and affect; insight and judgment normal. No signs of overt bleeding. 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 Extensive degenerative joint disease. Generalized debility due to pain. Frequent bleeding related pain crises and frequent hospitalizations. 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 Presently on factor infusion every 6 hours. I've also asked the patient to have his roommate bring in his own factors from home. PTT on 10/14/2016 was approximately 55 seconds itches a significant improvement from undetectable to high levels on 10/13/2016. If his clinical condition remains stable over the course of today and overnight , it may be reasonable to space the factor dosing from q6hrs to q12hrs. Continue [id number] factor inhibitor dosing as long as his pain continues. Pain control: Seems to be adequate on the current dosing regimen. Leno Adam MD Oct 15, 2016 18:47
[2016-10-15 20:00] VITALS: BP 117/84; PULSE 93; RESP 18; TEMP 96.9; O2SAT 97
--- NOTE | 2016-10-15 23:43 | HHI.PR ---
Subjective Remarks Patient seen today around 10:30 AM.patient reports pain is unchanged, however does not want to increase pain medications. He does report a right lower jaw molar infection which has been going on for months, however over the past several days is getting worse Objective Vital Signs Date Time Temp Pulse Resp B/P Pulse Ox O2 Delivery O2 Flow Rate FiO2 10/15/16 22:50 16 10/15/16 21:44 18 10/15/16 21:44 18 10/15/16 20:07 18 10/15/16 20:00 96.9 93 18 117/84 97 10/15/16 16:00 98.0 96 20 127/89 95 10/15/16 11:41 97.8 102 22 153/102 96 10/15/16 08:00 97.6 90 18 122/86 96 10/15/16 04:00 97.0 96 17 148/91 98 10/15/16 00:00 97.7 96 16 149/81 94 I/O 10/14/16 10/14/16 10/14/16 10/15/16 10/15/16 10/15/16 07:00 15:00 23:00 07:00 15:00 23:00 Intake Total 600 ml 1980 ml 1510 ml 550 ml 2120 ml 360 ml Balance 600 ml 1980 ml 1510 ml 550 ml 2120 ml 360 ml Intake Oral 600 ml 1980 ml 1510 ml 550 ml 1920 ml 360 ml IV Total 200 ml # Voids 3 4 1 1 2 1 Result Diagram: 10/15/16 0448 10/15/16 0448 Objective Remarks GENERAL: patient sitting up in bed. Appears uncomfortable. He is alert and oriented 3. SKIN: Warm and dry. HEAD: Normocephalic. EYES: No scleral icterus. No injection or drainage. NECK: Supple, trachea midline. No JVD or lymphadenopathy. poor dentition. Right lower jaw with decayed molar. Tenderness to palpation of lower jaw, however no pus or signs of abscess. CARDIOVASCULAR: Regular rate and rhythm without murmurs, gallops, or rubs. RESPIRATORY: Breath sounds equal bilaterally. No accessory muscle use. GASTROINTESTINAL: Abdomen soft, non-tender, nondistended. MUSCULOSKELETAL: No cyanosis, or edema. patient unable to manipulate right arm or right hip secondary to pain. BACK: Nontender without obvious deformity. No CVA tenderness. A/P Assessment and Plan 10/15/16 -pain stable. -Right lower jaw tooth infection. Elevated white count. We'll start Augmentin. -Appreciate hematology assistance. 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 Recent admit 09/16-09/19 for left knee hemarthrosis. Now w/ recurrent pain and concern for bleeding. Follows with Dr. Adam, ED contacted covering hematology, Dr. Harris Images reviewed: CT L-Spine w/ degenerative changes, CT Abd/Pelvis w/ severe degenerative changes right hip. Iliopsoas musculature noted by radiologist to be intact w/ no evidence of bleed. Checked hip ultrasound showed edematous tissues, but no fluid collection consistent with bleeding. -Hemoglobin has remained stable; 15.3, 13.9, 14.2, 14.0. Baseline 13's. Monitor. -Hematology consulted, seen by Dr. Harris, appreciate input. 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 Adam. -On therapeutic doses for bleeding of Feiba and NovoSeven -PTT elevated, hematology was contacted -10/14. Continues with factor replacement as per hematology. Suspected hemarthrosis of right elbow, right hip, hemoglobin stable. Uncontrolled pain-- > MS Contin increased. /Intractable Pain: Acute pain on top of chronic pain from severe degenerative disease from recurrent hemarthrosis. Patient reports he cannot have PT orthopedic intervention secondary to hemophilia. Reconciled home meds, Resumed home oxycodone as needed and scheduled long-acting morphine. On IV Dilaudid 2 mg, increase to every 3 hours as needed for breakthrough. -10/14 Uncontrolled pain--> MS Contin increased. Anxiety: Chronic. Continue Xanax as needed, dose increased by hematology. -Stable. Continue to monitor. GERD: Chronic, stable. Continue PPI. //Right lower jaw tooth infection. Elevated white count. We'll start Augmentin. Tobacco Abuse: Pt counseling. Nicorette Gum. DVT Prophylaxis: SCD/Teds. Discharge Planning patient states he is able to manage his mobility. -Discharge when cleared by hematology. Ned Ling MD Oct 15, 2016 23:43
[2016-10-16] VITALS: BP 157/91; PULSE 82; RESP 20; TEMP 98.6; O2SAT 95
[2016-10-16] MEDS: ALPRAZolam 0.5 MG TAB PO PRN ×4 (01:31→23:16)
[2016-10-16] MEDS: [UNRECOGNIZED DRUG - OTHER] IV SCH ×4 (01:32→18:00)
[2016-10-16] MEDS: HYDROmorphone HCL PF 2 MG/ML VIAL IV PRN ×8 (01:52→23:16)
[2016-10-16 04:00] VITALS: BP 137/89; PULSE 81; RESP 17; TEMP 97.6; O2SAT 97
[2016-10-16] MEDS: NOVOSEVEN RT IV SCH ×3 (04:40→15:00)
[2016-10-16 08:00] VITALS: BP 116/72; PULSE 91; RESP 20; TEMP 99; O2SAT 95
[2016-10-16] MEDS: AMOXICILLIN/CLAVULANATE K 875 MG TAB PO SCH (08:04)
[2016-10-16] MEDS: PANTOPRAZOLE SOD 40 MG DELAYED RELEASE TAB PO SCH (08:04)
[2016-10-16] MEDS: MORPHINE SULFATE 60 MG CONTROLLED RELEASE TAB PO SCH ×2 (08:04→20:16)
[2016-10-16] MEDS: MORPHINE SULFATE 15 MG CONTROLLED RELEASE TAB PO SCH ×2 (08:04→20:16)
[2016-10-16] MEDS: SODIUM CHLORIDE 0.9% FLUSH 5 ML FLUSH FLUSH SCH ×2 (08:05→22:44)
[2016-10-16 12:00] VITALS: BP 120/70; PULSE 95; RESP 20; TEMP 98.8; O2SAT 96
--- NOTE | 2016-10-16 12:09 | HHI.PR ---
Subjective Remarks She reports right lower jaw pain stable from yesterday, however increased swelling. Reports that right elbow and right hip pain have improved today. Denies any chest pain or sob. Objective Vital Signs Date Time Temp Pulse Resp B/P Pulse Ox O2 Delivery O2 Flow Rate FiO2 10/16/16 08:00 99.0 91 20 116/72 95 10/16/16 05:15 17 10/16/16 04:00 97.6 81 17 137/89 97 10/16/16 02:22 18 10/16/16 00:00 98.6 82 20 157/91 95 10/15/16 21:44 18 10/15/16 21:44 18 10/15/16 20:00 96.9 93 18 117/84 97 10/15/16 16:00 98.0 96 20 127/89 95 I/O 10/15/16 10/15/16 10/15/16 10/16/16 10/16/16 10/16/16 07:00 15:00 23:00 07:00 15:00 23:00 Intake Total 550 ml 2120 ml 360 ml 600 ml Balance 550 ml 2120 ml 360 ml 600 ml Intake Oral 550 ml 1920 ml 360 ml 600 ml IV Total 200 ml # Voids 1 2 1 3 Result Diagram: 10/15/16 0448 10/15/16 0448 Imaging Last Impressions Soft Tissue Ultrasound 10/12/16 0000 Signed Impressions: Service Date/Time: Wednesday, October 12, 2016 13:36 - CONCLUSION: Edematous tissues of the right groin without fluid collection or abscess. Kevin Harper MD Lumbar Spine CT 10/11/16 0000 Signed Impressions: Service Date/Time: Tuesday, October 11, 2016 20:53 - CONCLUSION: 1. Degenerative changes at L4-5. 2. Mild old compression fracture at L5. Kevin Harper MD Abdomen/Pelvis CT 10/11/16 0000 Signed Impressions: Service Date/Time: Tuesday, October 11, 2016 20:53 - CONCLUSION: 1. Degenerative disc change is noted at the L4-5 level. 2. Severe degenerative changes in the right hip. Pj Sinha MD ADDENDUM: The study was reviewed at Dr. Basilio's request. The iliopsoas musculature is intact there is no evidence of acute hemorrhage. Pj Sinha MD Objective Remarks GENERAL: patient sitting up in bed. Appears comfortable. He is alert and oriented 3. SKIN: Warm and dry. HEAD: Normocephalic. EYES: No scleral icterus. No injection or drainage. NECK: Supple, trachea midline. No JVD or lymphadenopathy. poor dentition. Right lower jaw with decayed molar. Tenderness to palpation of lower jaw as before, however with 4x4 cm swelling over right lower jaw - no redness. CARDIOVASCULAR: Regular rate and rhythm without murmurs, gallops, or rubs. RESPIRATORY: Breath sounds equal bilaterally. No accessory muscle use. GASTROINTESTINAL: Abdomen soft, non-tender, nondistended. MUSCULOSKELETAL: No cyanosis, or edema. patient unable to manipulate right arm or right hip secondary to pain. BACK: Nontender without obvious deformity. No CVA tenderness. A/P Assessment and Plan 10/16/16 -pain in right hip and right elbow improving. -Right lower jaw tooth infection. CT maxillofacial. Start IV antibiotics. Consult maxillofaciasurgery. -Appreciate hematology assistance. 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 Recent admit 09/16-09/19 for left knee hemarthrosis. Now w/ recurrent pain and concern for bleeding. Follows with Dr. Adam, ED contacted covering hematology, Dr. Harris Images reviewed: CT L-Spine w/ degenerative changes, CT Abd/Pelvis w/ severe degenerative changes right hip. Iliopsoas musculature noted by radiologist to be intact w/ no evidence of bleed. Checked hip ultrasound showed edematous tissues, but no fluid collection consistent with bleeding. -Hemoglobin has remained stable; 15.3, 13.9, 14.2, 14.0. Baseline 13's. Monitor. -Hematology consulted, seen by Dr. Harris, appreciate input. 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 Adam. -On therapeutic doses for bleeding of Feiba and NovoSeven -PTT elevated, hematology was contacted -10/14. Continues with factor replacement as per hematology. Suspected hemarthrosis of right elbow, right hip, hemoglobin stable. Uncontrolled pain-- > MS Contin increased. -10/16. Pain controlled. Continue medications as ordered. /Intractable Pain: Acute pain on top of chronic pain from severe degenerative disease from recurrent hemarthrosis. Patient reports he cannot have PT orthopedic intervention secondary to hemophilia. Reconciled home meds, Resumed home oxycodone as needed and scheduled long-acting morphine. On IV Dilaudid 2 mg, increase to every 3 hours as needed for breakthrough. -= Pain control as above. Anxiety: Chronic. Continue Xanax as needed, dose increased by hematology. -Stable. Continue to monitor. GERD: Chronic, stable. Continue PPI. //Right lower jaw tooth infection. Elevated white count. -10/16. Marked overnight. Maxillofacial CT. Antibiotics IV. Maxillofacial surgery consultation. Tobacco Abuse: Pt counseling. Nicorette Gum. DVT Prophylaxis: SCD/Teds. Discharge Planning patient states he is able to manage his mobility. -Discharge when cleared by hematology. Ned Ling MD Oct 16, 2016 12:09
[2016-10-16] MEDS: CLINDAMYCIN INJ 900 MG in SODIUM CHLORIDE 0.9% INJ 100 ML IV SCH ×2 (13:48→22:43)
[2016-10-16] MEDS ORDERED: IOHEXOL 350 MG/ML 10 ML VIAL (for RAD DIAG) IV ONE (15:29)
[2016-10-16 16:00] VITALS: BP 133/84; PULSE 102; RESP 16; TEMP 97.9; O2SAT 97
--- NOTE | 2016-10-16 16:35 | RADRPT ---
EXAM DATE/TIME: 10/16/2016 15:17 [facility] COMPARISON: CT ABDOMEN & PELVIS W CONTRAST, October 11, 2016, 20:53. INDICATIONS : Right lower jaw swelling and pain. IV CONTRAST: 64 cc Omnipaque 350 (iohexol) IV RADIATION DOSE: 36.69 CTDIvol (mGy) MEDICAL HISTORY : Hemophilia. SURGICAL HISTORY : None. ENCOUNTER: Initial ACUITY: 1 day PAIN SCALE: 5/10 LOCATION: Right facial TECHNIQUE: Volumetric scanning of the facial bones was performed. Using automated exposure control and adjustme nt of the mA and/or kV according to patient size, radiation dose was kept as low as reasonably achiev able to obtain optimal diagnostic quality images. FINDINGS: Post contrast CT imaging through the face demonstrates a large area of induration and soft tissue swe lling involving the right cheek and pre-mandibular soft tissues. There is no focal drainable abscess identified. There are some small surrounding lymph nodes. No necrotic or suspicious nodes are seen. The parapharyngeal space is intact. The soft tissues of the oropharynx and larynx are intact. Bone windowed imaging is provided. The osseous structures are grossly intact. CONCLUSION: 1. Fairly extensive soft tissue swelling along the right cheek and face likely dentigerous in origin. No focal drainable abscess is seen. Gerald Mera MD on October 16, 2016 at 16:29 Board Certified Radiologist. This report was verified electronically.
--- NOTE | 2016-10-16 19:52 | MB ---
cc: JOHN MENDENHALL DDS DATE OF CONSULTATION: 10/16/2016 DATE OF : 1990 CHIEF COMPLAINT "I have a tooth that is bothering me." HISTORY OF PRESENT ILLNESS Mr. Gonzalez is a 26-year-old male with a past medical history of hemophilia A, hemarthrosis with severe degenerative disease, chronic pain and tobacco use who presented to the ER with the complaints of hip and back pain and suspicion for bleed. The patient was subsequently admitted to the Hem/Onc Service and is currently being treated for his symptoms. The patient developed tooth pain approximately two days ago and developed facial swelling approximately one day after. The patient states that he has had two broken teeth one on the upper left and one on the lower right for approximately two years, and he has tried to seek treatment from dentists however they have declined to treat him due to his hemophilia. The patient was seen this afternoon resting comfortably in bed. The patient had a friend at bedside. The patient is alert and oriented x3, in no acute distress and his vital signs remain stable. PAST MEDICAL HISTORY 1. Hemophilia A. 2. Hemarthrosis with severe degenerative disease. 3. Chronic pain. 4. Tobacco abuse. PAST SURGICAL HISTORY [facility]. ALLERGIES NSAIDS. FAMILY HISTORY No significant family history. SOCIAL HISTORY Positive for tobacco, he smokes about one pack per day. PHYSICAL EXAMINATION GENERAL: A well-developed, well-nourished male resting comfortably in bed, in no acute distress. SKIN: Skin is warm and dry. HEAD: Head is normocephalic and atraumatic. EYES: Pupils equal, reactive to light and accommodation. Extraocular muscles are intact. No scleral icterus. NOSE: Nasal complex intact. No drainage and no epistaxis noted. EARS: Ears are intact with no drainage. MAXILLOFACIAL EXAM: The patient has moderate facial edema to the lower third of the right face. This swelling is nontender to palpation and soft to touch, it does not appear to be cellulitic at this time. Maximal incisal opening (CHANDAN) is approximately 35-40 mm. Intraorally, the patient's oral hygiene is poor. 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 Of note, the patient also has a fractured tooth #14 which is also non-restorable. NECK: Airway is patent. No JVD. Trachea is midline. IMAGING STUDIES The patient had a maxillofacial CT completed today and the conclusion of that report was there is fairly extensive soft tissue swelling along the right cheek and face likely dentigerous in the origin. No focal drainable abscess is seen. ASSESSMENT This is a 26-year-old male with a history of hemophilia and hemarthrosis with severe degenerative disease and chronic pain with a buccal swelling secondary to grossly decayed tooth #31. PLAN No immediate plans for surgical intervention by carburetor repairer at this time. Would recommend IV antibiotics for resolution of the swelling at this time, clindamycin 900 mg every 8 hours is appropriate. Would recommend steroid therapy, Solu-Medrol 40 mg every 8 hours for three doses. Continue pain management. The patient can follow-up upon discharge with Dr. Mendenhall at [facility] office for evaluation of extraction of teeth #'s 31 and 14. We will have to work in association with his welder oxyhydrogen preoperatively prior to extractions of these teeth. OLI Pereira/STEVEN /5:08 PM /7:19 PM
[2016-10-16 20:00] VITALS: BP 105/75; PULSE 98; RESP 16; TEMP 97.5; O2SAT 94
[2016-10-16] MEDS ORDERED: ANTI-INHIBITOR COAGULANT COMPLEX 100 UNIT INJ IV SCH (22:00)
[2016-10-16] MEDS ORDERED: [UNRECOGNIZED DRUG - OTHER] IV SCH (22:00)
[2016-10-17] VITALS: BP 116/90; PULSE 104; RESP 16; TEMP 95.8; O2SAT 96
[2016-10-17] MEDS: HYDROmorphone HCL PF 2 MG/ML VIAL IV PRN ×7 (02:26→21:59)
[2016-10-17] MEDS: CLINDAMYCIN INJ 900 MG in SODIUM CHLORIDE 0.9% INJ 100 ML IV SCH ×3 (05:36→23:56)
[2016-10-17 06:35] VITALS: BP 116/68; PULSE 106; RESP 16; TEMP 99; O2SAT 93
[2016-10-17] MEDS: ALPRAZolam 0.5 MG TAB PO PRN ×3 (06:46→18:27)
[2016-10-17 06:55] LABS: AUTOMATED NEUTROPHIL # 8.8 TH/MM3 (1.8-7.7); BASOPHIL # 0.1 TH/MM3 (0-0.2); BASOPHIL % 0.5 % (0.0-2.0); EOSINOPHIL # 0.6 TH/MM3 (0-0.4); EOSINOPHIL % 4.5 % (0.0-4.0); HEMATOCRIT 40.2 % (39.0-51.0); HEMO FLAGS DIFF FINAL; LYMPH % 15.9 % (9.0-44.0); MEAN CELL VOLUME 86.4 FL (80.0-100.0); MEAN CORPUSCULAR HEMOGLOBIN 28.5 PG (27.0-34.0); MONO % 7.4 % (0.0-8.0); NEUT % 71.7 % (16.0-70.0); PLATELET COUNT 122 TH/MM3 (150-450); RED BLOOD COUNT 4.65 MIL/MM3 (4.50-5.90); RED CELL DISTRIBUTION WIDTH 13.6 % (11.6-17.2); WHITE BLOOD COUNT 12.3 TH/MM3 (4.0-11.0)
[2016-10-17 07:22] LABS: BICARBONATE 31.7 MEQ/L (21.0-32.0)
[2016-10-17 08:00] VITALS: BP 113/65; PULSE 98; RESP 18; TEMP 98.8; O2SAT 98
[2016-10-17] MEDS: MORPHINE SULFATE 15 MG CONTROLLED RELEASE TAB PO SCH ×2 (08:36→21:59)
[2016-10-17] MEDS: MORPHINE SULFATE 60 MG CONTROLLED RELEASE TAB PO SCH ×2 (08:36→21:59)
[2016-10-17] MEDS: PANTOPRAZOLE SOD 40 MG DELAYED RELEASE TAB PO SCH (08:37)
[2016-10-17] MEDS: SODIUM CHLORIDE 0.9% FLUSH 5 ML FLUSH FLUSH SCH ×2 (08:37→22:00)
[2016-10-17] MEDS ORDERED: NOVOSEVEN RT IV SCH (10:00)
[2016-10-17] MEDS ORDERED: FACTOR VIIA (RECOMB) 5 MG VIAL IV PUSH SCH (10:00)
[2016-10-17 12:00] VITALS: BP 128/70; PULSE 66; RESP 18; TEMP 98.8; O2SAT 96
--- NOTE | 2016-10-17 13:39 | PD.ONC.PN ---
Subjective Subjective Remarks Afebrile overnight. Patient reports the pain in his right hip is still present but improving. The pain in his right elbow is significantly improved. He continues to have diarrhea. Pain in his right jaw improved after antibiotics were started. he continues to have persistent swelling. He is concerned about his factors being changed to every 24 hours. He states usually he needs them to be continued more often for a few days after his pain has improved. Objective Data Date Time Temp Pulse Resp B/P Pulse Ox O2 Delivery O2 Flow Rate FiO2 10/17/16 12:00 98.8 66 18 128/70 96 10/17/16 08:00 98.8 98 18 113/65 98 10/17/16 06:35 99.0 106 16 116/68 93 10/17/16 00:00 95.8 104 16 116/90 96 10/16/16 20:00 97.5 98 16 105/75 94 10/16/16 16:00 97.9 102 16 133/84 97 10/17/16 10/17/16 10/17/16 07:00 15:00 23:00 Intake Total 400 ml Balance 400 ml Result Diagram: 10/17/16 0545 10/17/16 0545 Laboratory Results Laboratory Tests Test 10/17/16 05:45 White Blood Count 12.3 TH/MM3 Red Blood Count 4.65 MIL/MM3 Hemoglobin 13.2 GM/DL Hematocrit 40.2 % Mean Corpuscular Volume 86.4 FL Mean Corpuscular Hemoglobin 28.5 PG Mean Corpuscular Hemoglobin 33.0 % Concent Red Cell Distribution Width 13.6 % Platelet Count 122 TH/MM3 Mean Platelet Volume 8.7 FL Neutrophils (%) (Auto) 71.7 % Lymphocytes (%) (Auto) 15.9 % Monocytes (%) (Auto) 7.4 % Eosinophils (%) (Auto) 4.5 % Basophils (%) (Auto) 0.5 % Neutrophils # (Auto) 8.8 TH/MM3 Lymphocytes # (Auto) 2.0 TH/MM3 Monocytes # (Auto) 0.9 TH/MM3 Eosinophils # (Auto) 0.6 TH/MM3 Basophils # (Auto) 0.1 TH/MM3 CBC Comment DIFF FINAL Differential Comment Sodium Level 138 MEQ/L Potassium Level 4.0 MEQ/L Chloride Level 98 MEQ/L Carbon Dioxide Level 31.7 MEQ/L Anion Gap 8 MEQ/L Blood Urea Nitrogen 11 MG/DL Creatinine 0.47 MG/DL Estimat Glomerular Filtration 218 ML/MIN Rate Random Glucose 107 MG/DL Calcium Level 9.6 MG/DL Administered Medications Medications (Trade) Dose Ordered Sig/Mike Route PRN Reason Start Time Stop Time Status Last Admin Dose Admin IV Flush (NS Flush) 2 ml UNSCH PRN FLUSH FLUSH AFTER USING IV ACCESS 10/11/16 23:00 10/12/16 05:20 IV Flush (NS Flush) 2 ml BID FLUSH 10/12/16 09:00 10/17/16 08:37 Nicotine (Nicotine Gum) 4 mg Q3HR PRN CHEW nicotine withdrawal 10/11/16 23:00 10/15/16 04:41 Pantoprazole Sodium (Protonix) 40 mg DAILY PO 10/12/16 09:00 10/17/16 08:37 Hydromorphone HCl (Dilaudid Pf Inj) 2 mg Q3H PRN IV BREAKTHROUGH PAIN 10/13/16 08:00 10/17/16 12:20 Alprazolam (Xanax) 0.5 mg Q8H PRN PO ANXIETY 10/13/16 09:00 10/17/16 06:46 Oxycodone HCl (Roxicodone) 30 mg Q4HR PRN PO PAIN 6-10 10/13/16 09:00 10/17/16 10:58 Morphine Sulfate (Oramorph Sr) 60 mg Q12HR PO 10/14/16 21:00 10/17/16 08:36 Morphine Sulfate 15 mg 15 mg Q12HR PO 10/14/16 21:00 10/17/16 08:36 Clindamycin Phosphate/Sodium Chloride (Cleocin Inj/NS Inj) 106 ml @ 212 mls/hr Q8H IV 10/16/16 14:00 10/17/16 05:36 Patient Own Medication PT OWN MED: FEIBA ADMINIS... Q24H IV 10/16/16 22:00 10/16/16 22:43 Patient Own Medication PT OWN MED: NOVOSE... Q24H IV 10/17/16 10:00 10/17/16 09:57 Objective Remarks GENERAL: Young man sitting up in bed, in nad SKIN: Warm and dry. very light fading bruise seen on right elbow HEAD: Normocephalic. EYES: No injection or drainage. NECK: Supple, trachea midline. CARDIOVASCULAR: +S1/S2, tachy RESPIRATORY: Good air movement bilaterally no added breath sounds. GASTROINTESTINAL: Abdomen soft, non-tender, nondistended. EXTREMITIES: No cyanosis. chronic joint swelling noted in bilateral elbows. MUSCULOSKELETAL: Adequate muscle tone. Decreased range of motion involving the right elbow and right hip. NEUROLOGICAL: awake and alert, normal speech. moving all extremities. Assessment/Plan Assessment 26-year-old male with hemophilia a (baseline factor activity level less than 1%) . Complicated by factor inhibitors requiring bypass agents. Plan 1. patient reports continued symptoms of pain in the right hip. We will continue replacement with Novoseven and FEIBA q 16 hours each, so that he will receive one or the other every 8 hours. As his pain improves, these could be titrated down even further to q 24 hours (so that he is receiving one every 12 hours). 2. continue antibiotics per hospitalist/dentist. 3. we will send scripts to specialty pharmacy for more Novoseven and FEIBA. 4. once patient is discharged, he will need to follow up in the clinic. d/w Dr. Adam, Dr. Sushil Brand,Nallely GORDON Oct 17, 2016 13:39
--- NOTE | 2016-10-17 14:34 | HHI.PR ---
Subjective Remarks Patient reports that right lower jaw pain is much improved. Still swollen. Denies any chest pain or shortness of breath. Right elbow and right hip pain improving. Objective Vital Signs Date Time Temp Pulse Resp B/P Pulse Ox O2 Delivery O2 Flow Rate FiO2 10/17/16 12:00 98.8 66 18 128/70 96 10/17/16 08:00 98.8 98 18 113/65 98 10/17/16 06:35 99.0 106 16 116/68 93 10/17/16 00:00 95.8 104 16 116/90 96 10/16/16 20:00 97.5 98 16 105/75 94 10/16/16 16:00 97.9 102 16 133/84 97 I/O 10/16/16 10/16/16 10/16/16 10/17/16 10/17/16 10/17/16 07:00 15:00 23:00 07:00 15:00 23:00 Intake Total 600 ml 960 ml 650 ml 400 ml Output Total 1500 ml Balance 600 ml -540 ml 650 ml 400 ml Intake Oral 600 ml 960 ml 650 ml 400 ml Output Urine Total 1500 ml # Voids 3 1 2 # Bowel Movements 0 0 0 Result Diagram: 10/17/16 0545 10/17/16 0545 Imaging Last Impressions Maxillofacial CT 10/16/16 0000 Signed Impressions: Service Date/Time: September 15:17 - CONCLUSION: 1. Fairly extensive soft tissue swelling along the right cheek and face likely dentigerous in origin. No focal drainable abscess is seen. Gerald Mera MD Soft Tissue Ultrasound 10/12/16 0000 Signed Impressions: Service Date/Time: Wednesday, October 12, 2016 13:36 - CONCLUSION: Edematous tissues of the right groin without fluid collection or abscess. Kevin Harper MD Lumbar Spine CT 10/11/16 0000 Signed Impressions: Service Date/Time: Tuesday, October 11, 2016 20:53 - CONCLUSION: 1. Degenerative changes at L4-5. 2. Mild old compression fracture at L5. Kevin Harper MD Abdomen/Pelvis CT 10/11/16 0000 Signed Impressions: Service Date/Time: Tuesday, October 11, 2016 20:53 - CONCLUSION: 1. Degenerative disc change is noted at the L4-5 level. 2. Severe degenerative changes in the right hip. Pj Sinha MD ADDENDUM: The study was reviewed at Dr. Basilio's request. The iliopsoas musculature is intact there is no evidence of acute hemorrhage. Pj Sinha MD Objective Remarks GENERAL: patient sitting up in bed. Appears comfortable. He is alert and oriented 3. SKIN: Warm and dry. HEAD: Normocephalic. EYES: No scleral icterus. No injection or drainage. NECK: Supple, trachea midline. No JVD or lymphadenopathy. poor dentition. Right lower jaw with decayed molar. swelling over right lower jaw as before, however today with no tenderness to palpation. No redness. CARDIOVASCULAR: Regular rate and rhythm without murmurs, gallops, or rubs. RESPIRATORY: Breath sounds equal bilaterally. No accessory muscle use. GASTROINTESTINAL: Abdomen soft, non-tender, nondistended. MUSCULOSKELETAL: No cyanosis, or edema. patient unable to manipulate right arm or right hip secondary to pain. BACK: Nontender without obvious deformity. No CVA tenderness. A/P Assessment and Plan 10/17/16 //Hemophilia A, complicated by factor VIII inhibitor- Hemarthrosis pain continues improving. Factors as per hematology. Appreciate assistance. //Right lower molar infectionpain improving with antibiotics. Will add short course of steroids for swelling. She maxillofacial surgery assistance. Can follow up outpatient with maxillofacial surgery. 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 Recent admit 09/16-09/19 for left knee hemarthrosis. Now w/ recurrent pain and concern for bleeding. Follows with Dr. Adam, ED contacted covering hematology, Dr. Sorathia Images reviewed: CT L-Spine w/ degenerative changes, CT Abd/Pelvis w/ severe degenerative changes right hip. Iliopsoas musculature noted by radiologist to be intact w/ no evidence of bleed. Checked hip ultrasound showed edematous tissues, but no fluid collection consistent with bleeding. -Hemoglobin has remained stable; 15.3, 13.9, 14.2, 14.0. Baseline 13's. Monitor. -Hematology consulted, seen by Dr. Harris, appreciate input. 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 Adam. -On therapeutic doses for bleeding of Feiba and NovoSeven -PTT elevated, hematology was contacted -10/14. Continues with factor replacement as per hematology. Suspected hemarthrosis of right elbow, right hip, hemoglobin stable. Uncontrolled pain-- > MS Contin increased. -10/16. Pain controlled. Continue medications as ordered. -10/17. Hemarthrosis pain continues improving. Factors as per hematology. Appreciate assistance. /Intractable Pain: Acute pain on top of chronic pain from severe degenerative disease from recurrent hemarthrosis. Patient reports he cannot have PT orthopedic intervention secondary to hemophilia. Reconciled home meds, Resumed home oxycodone as needed and scheduled long-acting morphine. On IV Dilaudid 2 mg, increase to every 3 hours as needed for breakthrough. -= Pain control as above. Anxiety: Chronic. Continue Xanax as needed, dose increased by hematology. -Stable. Continue to monitor. GERD: Chronic, stable. Continue PPI. //Right lower jaw tooth infection. Elevated white count. -10/16. Marked overnight. Maxillofacial CT. Antibiotics IV. Maxillofacial surgery consultation. -10/17pain improving with antibiotics. Will add short course of steroids for swelling. She maxillofacial surgery assistance. Can follow up outpatient with maxillofacial surgery. Tobacco Abuse: Pt counseling. Nicorette Gum. DVT Prophylaxis: SCD/Teds. Discharge Planning patient states he is able to manage his mobility. -Discharge when cleared by hematology. Ned Ling MD Oct 17, 2016 14:34
[2016-10-17] MEDS ORDERED: ANTI-INHIBITOR COAGULANT COMPLEX 100 UNIT INJ IV SCH ×2 (15:00→18:00)
[2016-10-17] MEDS ORDERED: [UNRECOGNIZED DRUG - OTHER] IV SCH (15:00)
[2016-10-17 15:51] LABS: C. DIFF EPI 027 PRESUMPTIVE NEGATIVE (NEGATIVE); C. DIFF TOXIN PCR NEGATIVE (NEGATIVE)
[2016-10-17 16:00] VITALS: BP 128/78; PULSE 86; RESP 18; TEMP 98.5; O2SAT 98
[2016-10-17] MEDS: [UNRECOGNIZED DRUG - OTHER] IV SCH (18:28)
[2016-10-17 20:00] VITALS: BP 113/70; PULSE 97; RESP 18; TEMP 98.4; O2SAT 96
[2016-10-17] MEDS: methylPREDNISolone SOD SUCC 40 MG/1 ML VIAL IV PUSH SCH (21:58)
[2016-10-18] VITALS: BP 105/65; PULSE 90; RESP 19; TEMP 97.3; O2SAT 95
[2016-10-18] MEDS: HYDROmorphone HCL PF 2 MG/ML VIAL IV PRN ×8 (01:10→21:33)
[2016-10-18] MEDS ORDERED: FACTOR VIIA (RECOMB) 5 MG VIAL IV PUSH SCH (02:00)
[2016-10-18] MEDS: ALPRAZolam 0.5 MG TAB PO PRN ×3 (02:32→19:14)
[2016-10-18] MEDS: [UNRECOGNIZED DRUG - OTHER] IV SCH ×3 (02:34→18:41)
[2016-10-18 04:00] VITALS: BP 105/64; PULSE 85; RESP 18; TEMP 96.9; O2SAT 95
[2016-10-18] MEDS: CLINDAMYCIN INJ 900 MG in SODIUM CHLORIDE 0.9% INJ 100 ML IV SCH ×3 (06:30→21:33)
[2016-10-18] MEDS: methylPREDNISolone SOD SUCC 40 MG/1 ML VIAL IV PUSH SCH (06:30)
[2016-10-18 08:00] VITALS: BP 132/77; PULSE 95; RESP 17; TEMP 96.9; O2SAT 94
[2016-10-18] MEDS: PANTOPRAZOLE SOD 40 MG DELAYED RELEASE TAB PO SCH (08:48)
[2016-10-18] MEDS: MORPHINE SULFATE 15 MG CONTROLLED RELEASE TAB PO SCH ×2 (08:48→19:32)
[2016-10-18] MEDS: SODIUM CHLORIDE 0.9% FLUSH 5 ML FLUSH FLUSH SCH ×2 (08:49→19:33)
[2016-10-18] MEDS: MORPHINE SULFATE 60 MG CONTROLLED RELEASE TAB PO SCH ×2 (08:49→19:32)
--- NOTE | 2016-10-18 09:39 | PD.ONC.PN ---
Subjective Subjective Remarks Afebrile overnight. Patient states overall he feels better today than he did yesterday. He would still like to continue taking his factors every every 8 hours for today. The pain in his right jaw, right hip, and right elbow have all improved. Objective Data Date Time Temp Pulse Resp B/P Pulse Ox O2 Delivery O2 Flow Rate FiO2 10/18/16 08:00 96.9 95 17 132/77 94 10/18/16 04:00 96.9 85 18 105/64 95 10/18/16 00:00 97.3 90 19 105/65 95 10/17/16 20:00 98.4 97 18 113/70 96 10/17/16 16:00 98.5 86 18 128/78 98 10/17/16 12:00 98.8 66 18 128/70 96 Result Diagram: 10/17/16 0545 10/17/16 0545 Laboratory Results Laboratory Tests Test 10/17/16 13:37 Stool C. difficile Toxin (PCR) NEGATIVE Stl C. difficile Toxin PRESUMPTIVE Epiderm 027 NEGATIVE Administered Medications Medications (Trade) Dose Ordered Sig/Mike Route PRN Reason Start Time Stop Time Status Last Admin Dose Admin IV Flush (NS Flush) 2 ml UNSCH PRN FLUSH FLUSH AFTER USING IV ACCESS 10/11/16 23:00 10/12/16 05:20 IV Flush (NS Flush) 2 ml BID FLUSH 10/12/16 09:00 10/18/16 08:49 Nicotine (Nicotine Gum) 4 mg Q3HR PRN CHEW nicotine withdrawal 10/11/16 23:00 10/15/16 04:41 Pantoprazole Sodium (Protonix) 40 mg DAILY PO 10/12/16 09:00 10/18/16 08:48 Hydromorphone HCl (Dilaudid Pf Inj) 2 mg Q3H PRN IV BREAKTHROUGH PAIN 10/13/16 08:00 10/18/16 07:01 Alprazolam (Xanax) 0.5 mg Q8H PRN PO ANXIETY 10/13/16 09:00 10/18/16 02:32 Oxycodone HCl (Roxicodone) 30 mg Q4HR PRN PO PAIN 6-10 10/13/16 09:00 10/18/16 06:30 Morphine Sulfate (Oramorph Sr) 60 mg Q12HR PO 10/14/16 21:00 10/18/16 08:49 Morphine Sulfate 15 mg 15 mg Q12HR PO 10/14/16 21:00 10/18/16 08:48 Clindamycin Phosphate/Sodium Chloride (Cleocin Inj/NS Inj) 106 ml @ 212 mls/hr Q8H IV 10/16/16 14:00 10/18/16 06:30 Patient Own Medication PT OWN MED: NOVOSE... Q16H IV 10/18/16 02:00 10/18/16 02:41 Patient Own Medication PT OWN MED: FEIBA ADMINIS... Q16H IV 10/17/16 18:00 10/17/16 18:28 Objective Remarks GENERAL: Young male sitting up in bed in no distress. SKIN: Warm and dry. Healing bruise to right elbow. HEAD: Normocephalic. EYES: No injection or drainage. NECK: Supple, trachea midline. CARDIOVASCULAR: Regular rate and rhythm without murmurs. RESPIRATORY: Breath sounds equal bilaterally. No accessory muscle use. GASTROINTESTINAL: Abdomen soft, non-tender, nondistended. EXTREMITIES: No edema. NEUROLOGICAL: No obvious focal deficit. Awake, alert, and oriented x3. Assessment/Plan Assessment 26-year-old male with hemophilia a (baseline factor activity level less than 1%) . Complicated by factor inhibitors requiring bypass agents. Plan The patient overall is feeling better today. Stool for Cdiff was negative. He is requesting to continue his replacement factors every 16 hours each through today. He can restart these medications every 24 hours tomorrow so that he is receiving one or the other every 12 hours. He can discharged from a hematology standpoint as he is no longer bleeding. He should follow-up with Dr. Adam as an outpatient. Continue antibiotics for dental infection per hospitalist. Attending Statement The exam, history, and the medical decision-making described in the above note were completed with the assistance of the mid-level provider. I reviewed and agree with the findings presented. I attest that I had a [id number] encounter with the patient on the same day, and personally performed and documented my assessment and findings in the medical record. patient feels right hip/flank area less painful which mean bleeding under control. swelling right jaw less since starting cleocin and he is planning on have two teeth removed in future which are responsible for current problem. He is very knowledgeable about his situation and feels he is getting better. will continue to alternate navin 7 and Feiba because it works better then anything else. Tanisha Moore Oct 18, 2016 09:38 Albaro Cummings MD Oct 18, 2016 12:53
[2016-10-18] MEDS: [UNRECOGNIZED DRUG - OTHER] IV SCH (10:10)
[2016-10-18 10:41] LABS: AUTOMATED NEUTROPHIL # 10.7 TH/MM3 (1.8-7.7); BASOPHIL % 0.1 % (0.0-2.0); EOSINOPHIL % 0.1 % (0.0-4.0); HEMATOCRIT 38.4 % (39.0-51.0); HEMO FLAGS DIFF FINAL; LYMPH % 5.9 % (9.0-44.0); LYMPHOCYTE # 0.7 TH/MM3 (1.0-4.8); MEAN CELL VOLUME 84.8 FL (80.0-100.0); MEAN CORPUSCULAR HEMOGLOBIN 29.4 PG (27.0-34.0); MEAN CORPUSCULAR HGB CONC 34.7 % (32.0-36.0); MONO % 1.5 % (0.0-8.0); NEUT % 92.4 % (16.0-70.0); PLATELET COUNT 139 TH/MM3 (150-450); RED BLOOD COUNT 4.53 MIL/MM3 (4.50-5.90); RED CELL DISTRIBUTION WIDTH 13.7 % (11.6-17.2); WHITE BLOOD COUNT 11.6 TH/MM3 (4.0-11.0)
[2016-10-18 12:00] VITALS: BP 122/61; PULSE 99; RESP 17; TEMP 98; O2SAT 96
[2016-10-18] MEDS: NICOTINE 4 MG/GUM CHEW PRN ×2 (13:57→18:46)
[2016-10-18 16:00] VITALS: BP 138/66; PULSE 96; RESP 17; TEMP 96.8; O2SAT 93
[2016-10-18 20:00] VITALS: BP 116/70; PULSE 99; RESP 18; TEMP 98; O2SAT 98
[2016-10-19] VITALS: BP 108/64; PULSE 96; RESP 18; TEMP 98.1; O2SAT 97
[2016-10-19] MEDS: HYDROmorphone HCL PF 2 MG/ML VIAL IV PRN ×6 (00:24→15:40)
[2016-10-19] MEDS ORDERED: ANTI-INHIBITOR COAGULANT COMPLEX 100 UNIT INJ IV SCH (02:00)
[2016-10-19] MEDS: ALPRAZolam 0.5 MG TAB PO PRN ×2 (03:01→11:28)
[2016-10-19 04:00] VITALS: BP 117/69; PULSE 94; RESP 18; TEMP 97.7; O2SAT 96
--- NOTE | 2016-10-19 05:39 | HHI.PR ---
Subjective Remarks Late entry. Date of service 10/18/16. Patient seen the morning of 10/18/16. Patient says he is feeling well. Denies any chest pain or shortness of breath. right jaw pain and swelling is improving. Reports pain is controlled. Would like to go home tomorrow. Objective Vital Signs Date Time Temp Pulse Resp B/P Pulse Ox O2 Delivery O2 Flow Rate FiO2 10/19/16 04:00 97.7 94 18 117/69 96 10/19/16 00:00 98.1 96 18 108/64 97 10/18/16 20:00 98.0 99 18 116/70 98 10/18/16 16:00 96.8 96 17 138/66 93 10/18/16 12:00 98.0 99 17 122/61 96 10/18/16 08:00 96.9 95 17 132/77 94 I/O 10/18/16 10/18/16 10/18/16 10/19/16 10/19/16 10/19/16 07:00 15:00 23:00 07:00 15:00 23:00 Intake Total 720 ml 100 ml 960 ml Balance 720 ml 100 ml 960 ml Intake Oral 720 ml 960 ml IV Total 100 ml # Voids 2 3 # Bowel Movements 1 3 Result Diagram: 10/18/16 1010 10/17/16 0545 Objective Remarks GENERAL: patient sitting up in bed. Appears comfortable. He is alert and oriented 3.smiling today. SKIN: Warm and dry. HEAD: Normocephalic. EYES: No scleral icterus. No injection or drainage. NECK: Supple, trachea midline. No JVD.poor dentition. Right lower jaw with decayed molar. swelling over right lower jaw much improved. Still no redness. CARDIOVASCULAR: Regular rate and rhythm without murmurs, gallops, or rubs. RESPIRATORY: Breath sounds equal bilaterally. No accessory muscle use. GASTROINTESTINAL: Abdomen soft, non-tender, nondistended. MUSCULOSKELETAL: No cyanosis, or edema. patient unable to manipulate right arm or right hip secondary to pain. BACK: Nontender without obvious deformity. No CVA tenderness. A/P Assessment and Plan 10/17/16 //Hemophilia A, complicated by factor VIII inhibitor- Hemarthrosis pain much improved. Factors as per hematology. Appreciate assistance. //Right lower molar infectionresolving with antibiotics, short course of steroids. Can follow up outpatient with maxillofacial surgery. 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 Recent admit 09/16-09/19 for left knee hemarthrosis. Now w/ recurrent pain and concern for bleeding. Follows with Dr. Adam, ED contacted covering hematology, Dr. Harris Images reviewed: CT L-Spine w/ degenerative changes, CT Abd/Pelvis w/ severe degenerative changes right hip. Iliopsoas musculature noted by radiologist to be intact w/ no evidence of bleed. Checked hip ultrasound showed edematous tissues, but no fluid collection consistent with bleeding. -Hemoglobin has remained stable; 15.3, 13.9, 14.2, 14.0. Baseline 13's. Monitor. -Hematology consulted, seen by Dr. Harris, appreciate input. 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 -On therapeutic doses for bleeding of Feiba and NovoSeven -PTT elevated, hematology was contacted -10/14. Continues with factor replacement as per hematology. Suspected hemarthrosis of right elbow, right hip, hemoglobin stable. Uncontrolled pain-- > MS Contin increased. -10/16. Pain controlled. Continue medications as ordered. -10/17. Hemarthrosis pain continues improving. Factors as per hematology. Appreciate assistance. -10/18. Pain improved. /Intractable Pain: Acute pain on top of chronic pain from severe degenerative disease from recurrent hemarthrosis. Patient reports he cannot have PT orthopedic intervention secondary to hemophilia. Reconciled home meds, Resumed home oxycodone as needed and scheduled long-acting morphine. On IV Dilaudid 2 mg, increase to every 3 hours as needed for breakthrough. -= improving.Pain control as above. Anxiety: Chronic. Continue Xanax as needed, dose increased by hematology. -Stable. Continue to monitor. GERD: Chronic, stable. Continue PPI. //Right lower jaw tooth infection. Elevated white count. -10/16. Marked overnight. Maxillofacial CT. Antibiotics IV. Maxillofacial surgery consultation. -10/17pain improving with antibiotics. Will add short course of steroids for swelling. She maxillofacial surgery assistance. Can follow up outpatient with maxillofacial surgery. -10/17. Improved with antibiotics, steroids. Follow up outpatient with maxillofacial surgery. Tobacco Abuse: Pt counseling. Nicorette Gum. DVT Prophylaxis: SCD/Teds. Discharge Planning patient states he is able to manage his mobility. -Discharge 10/19.. Ned Ling MD Oct 19, 2016 05:39
[2016-10-19] MEDS: CLINDAMYCIN INJ 900 MG in SODIUM CHLORIDE 0.9% INJ 100 ML IV SCH ×2 (06:24→14:00)
[2016-10-19] MEDS: NICOTINE 4 MG/GUM CHEW PRN (06:29)
[2016-10-19 08:00] VITALS: BP 126/75; PULSE 108; RESP 18; TEMP 97.6; O2SAT 97
[2016-10-19 08:04] LABS: AUTOMATED NEUTROPHIL # 10.7 TH/MM3 (1.8-7.7); BASOPHIL # 0.1 TH/MM3 (0-0.2); BASOPHIL % 0.4 % (0.0-2.0); EOSINOPHIL # 0.3 TH/MM3 (0-0.4); EOSINOPHIL % 2.3 % (0.0-4.0); HEMATOCRIT 37.3 % (39.0-51.0); HEMO FLAGS DIFF FINAL; LYMPH % 20.6 % (9.0-44.0); LYMPHOCYTE # 3.1 TH/MM3 (1.0-4.8); MEAN CELL VOLUME 85.7 FL (80.0-100.0); MEAN CORPUSCULAR HEMOGLOBIN 28.7 PG (27.0-34.0); MEAN CORPUSCULAR HGB CONC 33.5 % (32.0-36.0); MONO % 6.8 % (0.0-8.0); NEUT % 69.9 % (16.0-70.0); PLATELET COUNT 129 TH/MM3 (150-450); RED BLOOD COUNT 4.36 MIL/MM3 (4.50-5.90); RED CELL DISTRIBUTION WIDTH 14.2 % (11.6-17.2); WHITE BLOOD COUNT 15.2 TH/MM3 (4.0-11.0)
[2016-10-19] MEDS ORDERED: CLIN1CAP6 PO (08:52)
[2016-10-19] MEDS ORDERED: ALPR.5 PO ×2 (08:52→14:27)
[2016-10-19] MEDS ORDERED: MORP1TAB26 PO ×2 (08:52→14:27)
[2016-10-19] MEDS ORDERED: OXYC30TA PO ×2 (08:52→14:27)
[2016-10-19] MEDS: SODIUM CHLORIDE 0.9% FLUSH 5 ML FLUSH FLUSH SCH (08:54)
[2016-10-19] MEDS: PANTOPRAZOLE SOD 40 MG DELAYED RELEASE TAB PO SCH (08:54)
[2016-10-19] MEDS: MORPHINE SULFATE 60 MG CONTROLLED RELEASE TAB PO SCH (08:54)
[2016-10-19] MEDS: MORPHINE SULFATE 15 MG CONTROLLED RELEASE TAB PO SCH (08:54)
[2016-10-19] MEDS ORDERED: FLOR250C PO (08:55)
[2016-10-19] MEDS: SODIUM CHLORIDE 0.9% FLUSH 5 ML FLUSH FLUSH PRN (09:29)
[2016-10-19] MEDS: [UNRECOGNIZED DRUG - OTHER] IV SCH (10:30)
[2016-10-19 12:00] VITALS: BP 117/68; PULSE 87; RESP 18; TEMP 96.3; O2SAT 97
[2016-10-19] MEDS ORDERED: ROBA500T PO (13:09)
--- NOTE | 2016-10-19 13:21 | HHI.PR ---
Subjective Remarks pt says he feels alright. some spasm in right hip, wants muscle relaxant. right jaw pain better still. no cp or sob. Objective Vital Signs Date Time Temp Pulse Resp B/P Pulse Ox O2 Delivery O2 Flow Rate FiO2 10/19/16 08:00 97.6 108 18 126/75 97 10/19/16 04:00 97.7 94 18 117/69 96 10/19/16 00:00 98.1 96 18 108/64 97 10/18/16 20:00 98.0 99 18 116/70 98 10/18/16 16:00 96.8 96 17 138/66 93 I/O 10/18/16 10/18/16 10/18/16 10/19/16 10/19/16 10/19/16 06:59 14:59 22:59 06:59 14:59 22:59 Intake Total 720 ml 100 ml 960 ml 720 ml Balance 720 ml 100 ml 960 ml 720 ml Intake Oral 720 ml 960 ml 720 ml IV Total 100 ml # Voids 2 3 2 # Bowel Movements 1 3 2 Result Diagram: 10/19/16 0710 10/19/16 0710 Objective Remarks GENERAL: patient sitting up in bed. Appears comfortable. He is alert and oriented 3. unchanged exam. SKIN: Warm and dry. HEAD: Normocephalic. EYES: No scleral icterus. No injection or drainage. NECK: Supple, trachea midline. No JVD.poor dentition. Right lower jaw with decayed molar. swelling over right lower jaw much improved. Still no redness. CARDIOVASCULAR: Regular rate and rhythm without murmurs, gallops, or rubs. RESPIRATORY: Breath sounds equal bilaterally. No accessory muscle use. GASTROINTESTINAL: Abdomen soft, non-tender, nondistended. MUSCULOSKELETAL: No cyanosis, or edema. patient is able to move hip , although painful. improved overall. no cramping at the time of exam. BACK: Nontender without obvious deformity. No CVA tenderness. A/P Assessment and Plan 10/18/16 //Muscle spams. rx robaxin 7 days prn. //Hemophilia A, complicated by factor VIII inhibitor- Hemarthrosis pain much improved. Factors as per hematology. heme confirms facotrs faxed to pharmacy. Appreciate assistance. //Right lower molar infectionresolving with antibiotics, s/p short course of steroids. Can follow up outpatient with maxillofacial surgery. //leukocytosis - initially due to tooth infection , and was improving, now up to 15. likeley 08/28 iv solumedrol. 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 Recent admit 09/16-09/19 for left knee hemarthrosis. Now w/ recurrent pain and concern for bleeding. Follows with Dr. Adam, ED contacted covering hematology, Dr. Harris Images reviewed: CT L-Spine w/ degenerative changes, CT Abd/Pelvis w/ severe degenerative changes right hip. Iliopsoas musculature noted by radiologist to be intact w/ no evidence of bleed. Checked hip ultrasound showed edematous tissues, but no fluid collection consistent with bleeding. -Hemoglobin has remained stable; 15.3, 13.9, 14.2, 14.0. Baseline 13's. Monitor. -Hematology consulted, seen by Dr. Harris, appreciate input. 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 Adam. -On therapeutic doses for bleeding of Feiba and NovoSeven -PTT elevated, hematology was contacted -10/14. Continues with factor replacement as per hematology. Suspected hemarthrosis of right elbow, right hip, hemoglobin stable. Uncontrolled pain-- > MS Contin increased. -10/16. Pain controlled. Continue medications as ordered. -10/17. Hemarthrosis pain continues improving. Factors as per hematology. Appreciate assistance. -10/18. Pain improved. /Intractable Pain: Acute pain on top of chronic pain from severe degenerative disease from recurrent hemarthrosis. Patient reports he cannot have PT orthopedic intervention secondary to hemophilia. Reconciled home meds, Resumed home oxycodone as needed and scheduled long-acting morphine. On IV Dilaudid 2 mg, increase to every 3 hours as needed for breakthrough. -= improving.Pain control as above. Anxiety: Chronic. Continue Xanax as needed, dose increased by hematology. -Stable. Continue to monitor. GERD: Chronic, stable. Continue PPI. //Right lower jaw tooth infection. Elevated white count. -10/16. Marked overnight. Maxillofacial CT. Antibiotics IV. Maxillofacial surgery consultation. -10/17pain improving with antibiotics. Will add short course of steroids for swelling. She maxillofacial surgery assistance. Can follow up outpatient with maxillofacial surgery. -10/17. Improved with antibiotics, steroids. Follow up outpatient with maxillofacial surgery. =cont clinda to complete 14 days. fu dds as outpt. Tobacco Abuse: Pt counseling. Nicorette Gum. DVT Prophylaxis: SCD/Teds. Discharge Planning patient states he is able to manage his mobility. -Discharge. f/u hematology, dental surgery. Ned Ling MD Oct 19, 2016 13:21
--- NOTE | 2016-10-19 13:22 | HHI.DS ---
Discharge Summary Admission Date Oct 13, 2016 at 09:49 Discharge Date: Oct 19, 2016 Admitting Diagnosis intractable pain, hemophilia A (1) Hemophilia A ICD Code: D66 (2) Intractable pain ICD Code: R52 (3) Tobacco abuse ICD Code: Z72.0 Procedures none Brief History - From Admission This is a 26-year-old male with a PMH of Hemophilia A, h/o Hemarthrosis w/ Severe Degenerative Disease, Chronic Pain and Tobacco Abuse who presented to the ER w/ complaints of hip/back pain and suspicion for bleed. 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 Recent admit 09/16-09/19/16 for hemarthrosis of left knee, s/p eval by Dr. Adam w/ whom he follows, symptoms improved w/ higher frequency of Feiba and NovoSeven, on q12h at the time of d/c. Reports right hip pain and back pain x2 days, concerned for possible bleed so increased his doses of Feiba and Andi. Today w/ persistent complaints. On arrival, BP 126/94, HR 112, O2 sat 96 % on RA, Afebrile. WBC 14.7. Hgb 15.3. Chemistry at baseline. INR 1.0. CT L -spine with degenerative changes at L4-L5, mild old compression fracture at L5. CT Abd/Pelvis w/ severe degenerative changes right hip. ER physician discussed results w/ Radiologist as pt still concerned w/ possible bleed, iliopsoas musculature noted to be intact w/ no acute hemorrhage. Dr. Harris consulted by ER physician, recommended no further intervention/medications at this time, repeat Hgb in am for trend. CBC/BMP: 10/19/16 0710 10/19/16 0710 Significant Findings Laboratory Tests Test 10/17/16 10/18/16 10/19/16 05:45 10:10 07:10 White Blood Count 12.3 TH/MM3 11.6 TH/MM3 15.2 TH/MM3 (4.0-11.0) (4.0-11.0) (4.0-11.0) Platelet Count 122 TH/MM3 139 TH/MM3 129 TH/MM3 (150-450) (150-450) (150-450) Neutrophils (%) (Auto) 71.7 % 92.4 % (16.0-70.0) (16.0-70.0) Eosinophils (%) (Auto) 4.5 % (0.0-4.0) Neutrophils # (Auto) 8.8 TH/MM3 10.7 TH/MM3 10.7 TH/MM3 (1.8-7.7) (1.8-7.7) (1.8-7.7) Eosinophils # (Auto) 0.6 TH/MM3 (0-0.4) Creatinine 0.47 MG/DL 0.43 MG/DL (0.60-1.30) (0.60-1.30) Random Glucose 107 MG/DL 109 MG/DL (74-106) (74-106) Hematocrit 38.4 % 37.3 % (39.0-51.0) (39.0-51.0) Lymphocytes (%) (Auto) 5.9 % (9.0-44.0) Lymphocytes # (Auto) 0.7 TH/MM3 (1.0-4.8) Red Blood Count 4.36 MIL/MM3 (4.50-5.90) Hemoglobin 12.5 GM/DL (13.0-17.0) Monocytes # (Auto) 1.0 TH/MM3 (0-0.9) Imaging Last Impressions Maxillofacial CT 10/16/16 0000 Signed Impressions: Service Date/Time: September 15:17 - CONCLUSION: 1. Fairly extensive soft tissue swelling along the right cheek and face likely dentigerous in origin. No focal drainable abscess is seen. Gerald Mera MD Soft Tissue Ultrasound 10/12/16 0000 Signed Impressions: Service Date/Time: Wednesday, October 12, 2016 13:36 - CONCLUSION: Edematous tissues of the right groin without fluid collection or abscess. Kevin Harper MD Lumbar Spine CT 10/11/16 0000 Signed Impressions: Service Date/Time: Tuesday, October 11, 2016 20:53 - CONCLUSION: 1. Degenerative changes at L4-5. 2. Mild old compression fracture at L5. Kevin Harper MD Abdomen/Pelvis CT 10/11/16 0000 Signed Impressions: Service Date/Time: Tuesday, October 11, 2016 20:53 - CONCLUSION: 1. Degenerative disc change is noted at the L4-5 level. 2. Severe degenerative changes in the right hip. Pj Sinha MD ADDENDUM: The study was reviewed at Dr. Basilio's request. The iliopsoas musculature is intact there is no evidence of acute hemorrhage. Pj Sinha MD PE at Discharge GENERAL: Well-developed well-nourished. In no acute distress. SKIN: Warm and dry. Port in place on left chest. Some ecchymosis bilateral antecubital fossas from IV sites. HEENT: Normocephalic. Pupils equal and round. Mucous membranes pink and moist. CARDIOVASCULAR: Regular rate and rhythm. No murmur appreciated. RESPIRATORY: No accessory muscle use. Clear to auscultation. Breath sounds equal bilaterally. GASTROINTESTINAL: Abdomen soft, non-tender, nondistended. Bowel sounds x4. MUSCULOSKELETAL: No obvious deformities. Painful ROM right hip. No surrounding palpable edema right hip or right elbow. No clubbing or cyanosis. No edema. NEUROLOGICAL: Awake and alert. No focal neurological deficits. Moves upper and lower extremities spontaneously. Normal speech. PSYCHIATRIC: Appropriate mood and affect; insight and judgment normal. Hospital Course Hematology was consult, and treated patient with NovoSeven and Feiba. Pain was treated with high-dose opioids, with gradual improvement. Hospitalization was complicated by right lower molar infection, for which patient was treated with a short course of oral steroids, clindamycin IV. Patient will be discharged home on clindamycin to complete 14 days of treatment. Dental surgery was consult. During admission, and patient will need to follow-up with dental surgery, hematology to arrange for surgical management as outpatient. One- month prescription for patient's pain meds were refilled, as patient says he is disabled, very difficult for him to go to and from the pharmacy. This was communicated with Dr. Adam. for problem-based summary from most recent progress note, please see below. 10/18/16 //Muscle spams. rx robaxin 7 days prn. //Hemophilia A, complicated by factor VIII inhibitor- Hemarthrosis pain much improved. Factors as per hematology. heme confirms facotrs faxed to pharmacy. Appreciate assistance. //Right lower molar infectionresolving with antibiotics, s/p short course of steroids. Can follow up outpatient with maxillofacial surgery. //leukocytosis - initially due to tooth infection , and was improving, now up to 15. likeley 08/28 iv solumedrol. 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 Recent admit 09/16-09/19 for left knee hemarthrosis. Now w/ recurrent pain and concern for bleeding. Follows with Dr. Adam, ED contacted covering hematology, Dr. Harris Images reviewed: CT L-Spine w/ degenerative changes, CT Abd/Pelvis w/ severe degenerative changes right hip. Iliopsoas musculature noted by radiologist to be intact w/ no evidence of bleed. Checked hip ultrasound showed edematous tissues, but no fluid collection consistent with bleeding. -Hemoglobin has remained stable; 15.3, 13.9, 14.2, 14.0. Baseline 13's. Monitor. -Hematology consulted, seen by Dr. Harris, appreciate input. Further care per patient's drawing press operator Dr. Adam. -On therapeutic doses for bleeding of Feiba and NovoSeven -PTT elevated, hematology was contacted -10/14. Continues with factor replacement as per hematology. Suspected hemarthrosis of right elbow, right hip, hemoglobin stable. Uncontrolled pain-- > MS Contin increased. -10/16. Pain controlled. Continue medications as ordered. -10/17. Hemarthrosis pain continues improving. Factors as per hematology. Appreciate assistance. -10/18. Pain improved. /Intractable Pain: Acute pain on top of chronic pain from severe degenerative disease from recurrent hemarthrosis. Patient reports he cannot have PT orthopedic intervention secondary to hemophilia. Reconciled home meds, Resumed home oxycodone as needed and scheduled long-acting morphine. On IV Dilaudid 2 mg, increase to every 3 hours as needed for breakthrough. -= improving.Pain control as above. Anxiety: Chronic. Continue Xanax as needed, dose increased by hematology. -Stable. Continue to monitor. GERD: Chronic, stable. Continue PPI. //Right lower jaw tooth infection. Elevated white count. -10/16. Marked overnight. Maxillofacial CT. Antibiotics IV. Maxillofacial surgery consultation. -10/17pain improving with antibiotics. Will add short course of steroids for swelling. She maxillofacial surgery assistance. Can follow up outpatient with maxillofacial surgery. -10/17. Improved with antibiotics, steroids. Follow up outpatient with maxillofacial surgery. =cont clinda to complete 14 days. fu dds as outpt. Tobacco Abuse: Pt counseling. Nicorette Gum. DVT Prophylaxis: SCD/Teds. Discharge Planning patient states he is able to manage his mobility. -Discharge. f/u hematology, dental surgery. Pt Condition on Discharge: Good Discharge Disposition: Discharge Home Discharge Time: > 30 minutes Discharge Instructions DIET: Follow Instructions for: As Tolerated, No Restrictions Activities you can perform: Regular-No Restrictions Follow up Referrals: Oncology - 1 Week with Leno Adam MD Oral Maxillary Surgery - 2 Weeks with Johnathan Mendenhall DDS PCP Follow-up - 1 Week New Medications: Clindamycin (Clindamycin) 300 Mg Cap 600 MG PO Q8H Infection #33 Ref 0 CAP Methocarbamol (Robaxin) 500 Mg Tab 500 MG PO QID PRN SPASM Days 7 Ref 0 TAB Saccharomyces Boulardii (Florastor) 250 Mg Cap 250 MG PO BID Nutritional Supplement Days 30 Ref 0 CAP Changed Medications: Oxycodone (Oxycodone) 30 Mg Tab 30 MG PO Q4-6H PRN PAIN #18 TAB NS (Changed from: Q6H) Continued Medications: Alprazolam (Xanax) 0.5 Mg Tab 0.5 MG PO BID PRN ANXIETY #6 Ref 0 TAB (This prescription has been renewed) Antiinhibitor Coagulant Complex Inj (Feiba NF Inj) 500 Units Inj 7342 UNITS INJ EVERY OTHER DAY Coagulation Factor VIIa (Recomb) Inj (Novoseven Rt Inj) 1 Mg Inj 10 MCG IV EVERY OTHER DAY Days 12 VIAL Morphine ER (Morphine ER) 60 Mg Tab 60 MG PO Q12HR Pain Management #6 Ref 0 TAB (This prescription has been renewed) Nicotine Polacrilex (Nicotine Polacrilex) 4 Mg Gum 4 MG CHEW Q3HR PRN nicotine withdrawal Days 30 Ref 0 EA Pantoprazole (Pantoprazole) 40 Mg Tab 40 MG PO DAILY stomach acid Days 30 Ref 0 TAB Ned Ling MD Oct 19, 2016 13:22
[2016-10-19] MEDS ORDERED: METHOCARBAMOL 500 MG TAB PO PRN (14:00)
== END 2016-10-19 16:21 | disposition home or self-care (01) | DRG 813 ==
LOC: NEPA 18:13 → NEDA 22:41 → NEPGCP 10-12 00:34 → OBSVTOIN 10-13 09:49 → HOCA 10-13 09:58
PROVIDERS: ADMIT Internal Medicine; ATTEND Internal Medicine
PROC: 3E033GC Introduction of Other Therapeutic Substance into Peripheral Vein, Percutaneous Approach (ICD-10-PCS; principal; 2016-10-12)
DX: D66 Hereditary factor VIII deficiency (principal); M25.00 Hemarthrosis, unspecified joint; F41.9 Anxiety disorder, unspecified; F17.210 Nicotine dependence, cigarettes, uncomplicated; G89.29 Other chronic pain; M54.9 Dorsalgia, unspecified; M16.11 Unilateral primary osteoarthritis, right hip; K02.9 Dental caries, unspecified; K21.9 Gastro-esophageal reflux disease without esophagitis; K04.7 Periapical abscess without sinus; R60.9 Edema, unspecified
CPT/HCPCS: 70487; 72131; 74177; 76999; 80048; 80053; 85014; 85018; 85025; 85610; 85730; 86850; 86900; 86901; 86920; 86922; 87493; 96374; 96376; G0378; J1170; J2920; J7189; J7198; Q9967

== ENCOUNTER 2016-11-18 13:39 | Inpatient (IN) | payer MEDICARE, OTHER ==
[~2016-11-18] VITALS: Ht 177.8 cm; Wt 82.0 kg
[~2016-11-18 13:39] MED LIST changes: -ALPR.25 PO; +ALPR.5 PO; +CLIN1CAP6 PO; +FLOR250C PO; +MORP1TAB26 PO; +ROBA500T PO
[2016-11-18 13:40] VITALS: BP 140/80; PULSE 101; RESP 19; TEMP 98.2; O2SAT 96
--- NOTE | 2016-11-18 13:45 | PD ---
Physical Exam Date Seen by Provider: Nov 18, 2016 Time Seen by Provider: 13:43 Narrative Pt is a hemophiliac, he reports bleeding into his hip for 2 weeks. Pt states he woke up with bruising to his abdomen and back with no injury or trauma. Pt has been infusing activated factor 9 Q8 hours. Nuclear Equipment Test Engineer is Dr. Adam. Pt report pain is a 8/10. He was advised to come to the ED for evaluation. Data Data Last Documented VS Vital Signs Date Time Temp Pulse Resp B/P Pulse Ox O2 Delivery O2 Flow Rate FiO2 11/18/16 13:40 98.2 101 19 140/80 96 MDM Supervised Visit with CHUY: Deepthi Joseph Nov 18, 2016 13:45
[2016-11-18] MEDS ORDERED: HYDROmorphone HCL PF 2 MG/ML VIAL IV PUSH ONE (14:15)
[2016-11-18] MEDS ORDERED: ONDANSETRON HCL 4 MG/2 ML VIAL IV PUSH ONE (14:15)
[2016-11-18 14:41] LABS: AUTOMATED NEUTROPHIL # 6.3 TH/MM3 (1.8-7.7); BASOPHIL % 0.5 % (0.0-2.0); EOSINOPHIL # 0.4 TH/MM3 (0-0.4); EOSINOPHIL % 4.1 % (0.0-4.0); HEMATOCRIT 42.8 % (39.0-51.0); HEMO FLAGS DIFF FINAL; LYMPH % 17.6 % (9.0-44.0); LYMPHOCYTE # 1.6 TH/MM3 (1.0-4.8); MEAN CELL VOLUME 84.2 FL (80.0-100.0); MEAN CORPUSCULAR HEMOGLOBIN 28.4 PG (27.0-34.0); MEAN CORPUSCULAR HGB CONC 33.7 % (32.0-36.0); MONO % 9.4 % (0.0-8.0); NEUT % 68.4 % (16.0-70.0); PLATELET COUNT 291 TH/MM3 (150-450); RED BLOOD COUNT 5.08 MIL/MM3 (4.50-5.90); RED CELL DISTRIBUTION WIDTH 14.6 % (11.6-17.2); WHITE BLOOD COUNT 9.2 TH/MM3 (4.0-11.0)
[2016-11-18 15:07] LABS: ANION GAP 8 MEQ/L (5-15); AST (GOT) 20 U/L (15-37); BICARBONATE 25.9 MEQ/L (21.0-32.0); BLOOD UREA NITROGEN 4 MG/DL (7-18); CHLORIDE 104 MEQ/L (98-107); GLOMERULAR FILTRATION RATE 198 ML/MIN (>89); POTASSIUM 3.7 MEQ/L (3.5-5.1); SODIUM (NA) 138 MEQ/L (136-145)
[2016-11-18 15:10] LABS: ALKALINE PHOSPHATASE 107 U/L (45-117); ALT (GPT) 34 U/L (12-78); TOTAL BILIRUBIN ADULT 0.6 MG/DL (0.2-1.0)
--- NOTE | 2016-11-18 15:22 | PD ---
HPI Chief Complaint: Bleeding Time Seen by Provider: 14:02 Travel History International Travel<30 days: No Contact w/Intl Traveler<30days: No Traveled to known affect area: No History of Present Illness HPI 26-year-old male with a history of hemophilia A presents emergency department complaint of worsening right hip pain and bruising to his abdomen. He follows with Dr. Adam. He's had trouble with chronic pain is been admitted for pain control in the past. He states he started having worsening right hip pain for the past week or so. He is been using increased doses of his factor to try to control. He's had trouble with inhibitors in the past. Today the pain got excruciating. He also noticed some spontaneous bruising on his abdomen today. History Past Medical History Narrative Medical Hemophilia a Hemarthrosis Severe degenerative disease Trouble with inhibitors Influenza Vaccination: No Social History Alcohol Use: No Tobacco Use: Yes (1 PPD ) Allergies-Medications (Allergen,Severity, Reaction): Coded Allergies: Nonsteroidal Anti-Inflammatory Agts (Verified Adverse Reaction, Severe, bleeding, 11/18/16) Reported Meds & Prescriptions Reported Meds & Active Scripts Active Morphine ER (Morphine Sulfate) 60 Mg Tab 60 Mg PO Q12HR Xanax (Alprazolam) 0.5 Mg Tab 0.5 Mg PO BID PRN Oxycodone (Oxycodone HCl) 30 Mg Tab 30 Mg PO Q4-6H PRN Robaxin (Methocarbamol) 500 Mg Tab 500 Mg PO QID PRN 7 Days Florastor (Saccharomyces Boulardii) 250 Mg Cap 250 Mg PO BID 30 Days Clindamycin (Clindamycin HCl) 300 Mg Cap 600 Mg PO Q8H Nicotine Polacrilex 4 Mg Gum 4 Mg CHEW Q3HR PRN 30 Days Pantoprazole (Pantoprazole Sodium) 40 Mg Tab 40 Mg PO DAILY 30 Days Novoseven Rt Inj (Factor VIIa (Recombinant)) 1 Mg Inj 10 Mcg IV EVERY OTHER DAY 12 Days Reported Feiba NF Inj (Antiinhibitor Coagulant Complex Inj) 500 Units Inj 7,342 Units INJ EVERY OTHER DAY Review of Systems Except as stated in HPI: all other systems reviewed are Neg Physical Exam Narrative GENERAL: Generally well-appearing 26 year-old man, no acute distress. SKIN: Focused skin assessment warm/dry. Dark ecchymotic bruise, approximately 2 x 4 cm on the lower abdomen. HEAD: Atraumatic. Normocephalic. CARDIOVASCULAR: Regular rate and rhythm. No murmur appreciated. RESPIRATORY: No accessory muscle use. Clear to auscultation. Breath sounds equal bilaterally. GASTROINTESTINAL: Abdomen soft, non-tender, nondistended. Hepatic and splenic margins not palpable. MUSCULOSKELETAL: No obvious deformities. No edema. NEUROLOGICAL: Awake and alert. No obvious cranial nerve deficits. Motor grossly within normal limits. Normal speech. PSYCHIATRIC: Appropriate mood and affect; insight and judgment normal. Data Data Last Documented VS Vital Signs Date Time Temp Pulse Resp B/P Pulse Ox O2 Delivery O2 Flow Rate FiO2 11/18/16 14:26 77 18 95 Room Air 11/18/16 13:40 98.2 140/80 Orders Complete Blood Count With Diff (11/18/16 14:13) Comprehensive Metabolic Panel (11/18/16 14:13) Iv Access Insert/Monitor (11/18/16 14:13) Hydromorphone Pf Inj (Dilaudid Pf Inj) (11/18/16 14:15) Ondansetron Inj (Zofran Inj) (11/18/16 14:15) Act Partial Throm Time (Ptt) (11/18/16 14:43) Mri Joint Hip W/O Contrast (11/18/16 ) Hydromorphone Pf Inj (Dilaudid Pf Inj) (11/18/16 15:30) Consult Hematology (11/18/16 ) Patient Own Medication (11/18/16 18:00) Patient Own Medication (11/18/16 21:00) Anti-Inhibitor Coag Cmplx Inj (Feiba Nf (11/18/16 16:15) Factor Viia (Recomb) Inj (Novoseven Rt I (11/18/16 18:00) Admit Order (Ed Use Only) (11/18/16 16:13) Place In Observation (11/18/16 ) Labs Laboratory Tests Test 11/18/16 11/18/16 14:25 14:26 White Blood Count 9.2 TH/MM3 Red Blood Count 5.08 MIL/MM3 Hemoglobin 14.4 GM/DL Hematocrit 42.8 % Mean Corpuscular Volume 84.2 FL Mean Corpuscular Hemoglobin 28.4 PG Mean Corpuscular Hemoglobin 33.7 % Concent Red Cell Distribution Width 14.6 % Platelet Count 291 TH/MM3 Mean Platelet Volume 7.1 FL Neutrophils (%) (Auto) 68.4 % Lymphocytes (%) (Auto) 17.6 % Monocytes (%) (Auto) 9.4 % Eosinophils (%) (Auto) 4.1 % Basophils (%) (Auto) 0.5 % Neutrophils # (Auto) 6.3 TH/MM3 Lymphocytes # (Auto) 1.6 TH/MM3 Monocytes # (Auto) 0.9 TH/MM3 Eosinophils # (Auto) 0.4 TH/MM3 Basophils # (Auto) 0.0 TH/MM3 CBC Comment DIFF FINAL Differential Comment Sodium Level 138 MEQ/L Potassium Level 3.7 MEQ/L Chloride Level 104 MEQ/L Carbon Dioxide Level 25.9 MEQ/L Anion Gap 8 MEQ/L Blood Urea Nitrogen 4 MG/DL Creatinine 0.51 MG/DL Estimat Glomerular Filtration 198 ML/MIN Rate Random Glucose 90 MG/DL Calcium Level 9.4 MG/DL Total Bilirubin 0.6 MG/DL Aspartate Amino Transf 20 U/L (AST/SGOT) Alanine Aminotransferase 34 U/L (ALT/SGPT) Alkaline Phosphatase 107 U/L Total Protein 8.1 GM/DL Albumin 4.0 GM/DL Activated Partial 98.3 SEC Thromboplast Time MDM Medical Decision Making Medical Screen Exam Complete: Yes Emergency Medical Condition: Yes Interpretation(s) LABS: CBC unremarkable. CMP unremarkable. APTT 98.3 MRI right hip: Extensive degenerative change in the right hip with no evidence of joint effusion or hemarthrosis. Differential Diagnosis Hemarthrosis, bleeding, weakness, hemophilia other Narrative Course Medical decision making 26-year-old male with a history of hemophilia a, recent admissions for pain control for chronic hemarthrosis and recurrent hemarthrosis. I spoke with Dr. Adam. He states his workups have normally been negative with this patient. We just started it and now have since June when he moved down here. Previously documented [place]. He looks obviously uncomfortable. He's been getting us factor. We will plan on observing him. Dr. Adam recommends PTT. Request MRI of his right hip. Diagnosis Primary Impression: Hemarthrosis Additional Impressions: Hemophilia A Joint pain Intractable pain Admitting Information Admitting Physician Requests: Admit Garrett Krause MD Nov 18, 2016 15:22
[2016-11-18] MEDS ORDERED: HYDROmorphone HCL PF 1 MG/ML VIAL IVS ONE (15:30)
[2016-11-18 15:54] LABS: APTT (PATIENT) 98.3 SEC (24.3-30.1)
[2016-11-18] MEDS ORDERED: ANTI-INHIBITOR COAGULANT COMPLEX 100 UNIT INJ IV SCH (16:15)
--- NOTE | 2016-11-18 16:35 | RADRPT ---
EXAM DATE/TIME: 11/18/2016 15:32 [facility] COMPARISON: No previous studies available for comparison. INDICATIONS : Severe right hip pain with bruising and loss of mobility with no injury. MEDICAL HISTORY : Hemophilia, DDD SURGICAL HISTORY : ORIF Lt femur, Rt arm fashiotomy, port placed ENCOUNTER: Initial ACUITY: 1 week PAIN SCORE: 6/10 LOCATION: Right hip TECHNIQUE: Multiplanar, multisequence MRI examination was performed without contrast. FINDINGS: BONE/CARTILAGE: Severe degenerative changes are present in the right hip with cartilage loss, joint space narrowing a nd remodeling of the femoral head with flattening. Spurring is noted as well. There is subchondral cy sts. There is no distinct joint effusion. The left hip is intact. cartilage LABRUM: Within normal limits. MUSCLES/TENDONS: All of the visualized muscles and tendons are intact. MISCELLANEOUS: A small utricle is noted prostate gland. There is a small ejaculatory duct cyst CONCLUSION: Extensive degenerative change in the right hip with no evidence of a joint effusion or hemarthrosis. Pj Sinha MD on November 18, 2016 at 16:19 Board Certified Radiologist. This report was verified electronically.
[2016-11-18] MEDS ORDERED: HYDROmorphone HCL PF 2 MG/ML VIAL IVS ONE (16:45)
[2016-11-18 17:00] VITALS: BP 130/80; PULSE 78; RESP 18; O2SAT 99
[2016-11-18] MEDS ORDERED: ALPR0.5T3 PO (17:11)
[2016-11-18] MEDS ORDERED: OXYC30TA PO (17:20)
[2016-11-18] MEDS ORDERED: [UNRECOGNIZED DRUG - CODE] IV (17:20)
[2016-11-18] MEDS ORDERED: [UNRECOGNIZED DRUG - CODE] IV ×2 (17:31→17:32)
[2016-11-18] MEDS ORDERED: [UNRECOGNIZED DRUG - OTHER] IV SCH ×2 (18:00→22:00)
[2016-11-18] MEDS ORDERED: FACTOR VIIA (RECOMB) 1 MG VIAL IV PUSH SCH (18:00)
--- NOTE | 2016-11-18 18:03 | HHI.HP ---
. [facility] Service [place] Primary Care Physician Leno Adam MD Admission Diagnosis Hemophilia, Bleeding, Right Hip Pain Diagnoses: (1) Hemophilia A Diagnosis: Principal (2) Joint pain Diagnosis: Secondary (3) Abdominal pain Diagnosis: Secondary (4) Tobacco abuse Diagnosis: Secondary Chief Complaint: Worsening right hip pain and abdominal bruising. Travel History International Travel<30 Days: No Contact w/Intl Traveler <30 Da: No Traveled to Known Affected Are: No Sepsis Criteria SIRS Criteria (2 or more): Heart rate over 90 History of Present Illness Mr. Gonzalez is a 26-year-old male with a known history of hemophilia A, history of hemarthrosis with severe degenerative disease, chronic pain and tobacco use who presented to the emergency room with complaints of worsening right hip pain and abdominal bruising. Patient had recent hospitalization between 10/11/16-10/19/16 with similar symptoms. Patient states that pain this time is more severe and woke up this am with a small hematoma to his left abdomen. Patient states that pain is sharp in nature, most often relieved by medications and rest with any activity making it worse. He does see Dr. Adam in the outpatient setting. Patient states he has been taking Feiba and NovoSeven and prescribed opiates per Dr. Adam's recommendations with little relief of symptoms and worsening pain. Denies any recent fever, chills, cough, shortness of breath, chest pain, palpitations, nausea or vomiting. Does admit to having a poor appetite. MRI report noted, extensive degenerative change in the right hip with no evidence of a joint effusion or hemarthrosis. Past Family Social History Past Medical History Hemophilia A Hemarthrosis with severe degenerative disease Chronic pain Tobacco use Past Surgical History [facility] Reported Medications Active Morphine ER (Morphine Sulfate) 60 Mg Tab 60 Mg PO Q12HR Nicotine Polacrilex 4 Mg Gum 4 Mg CHEW Q3HR PRN 30 Days Reported Novoseven Rt Inj (Factor VIIa (Recombinant)) 1 Mg Inj 10 Mcg IV HS Novoseven Rt Inj (Factor VIIa (Recombinant)) 1 Mg Inj 10 Mcg IV Q4HR Feiba NF Inj (Antiinhibitor Coagulant Complex Inj) 500 Units Inj 7,500 Units IV Q8HR Oxycodone (Oxycodone HCl) 30 Mg Tab 30 Mg PO Q4HR Alprazolam 0.5 Mg Tab 0.5 Mg PO Q8H Feiba NF Inj (Antiinhibitor Coagulant Complex Inj) 500 Units Inj 7,500 Units INJ DAILY Allergies: Coded Allergies: Nonsteroidal Anti-Inflammatory Agts (Verified Adverse Reaction, Severe, bleeding, 11/18/16) Active Ordered Medications Current Medications Medications (Trade) Dose Ordered Sig/Mike Route Start Time Stop Time Status Last Admin Patient Own Medication 10 ea Q6HR IV 11/18/16 18:00 UNV Patient Own Medication 7,500 ea Q12HR IV 11/18/16 21:00 UNV (Feiba Nf Inj) 7,500 units Q12H IV 11/18/16 16:15 UNV (Novoseven Rt Inj) 10 mg Q6HR IV PUSH 11/18/16 18:00 UNV Family History Family medical history not significant for any cardiovascular disease or pulmonary disease. Social History Patient does smoke one pack per day. Denies alcohol use or any illicit drug use. Physical Exam Vital Signs Vital Signs Date Time Temp Pulse Resp B/P Pulse Ox O2 Delivery O2 Flow Rate FiO2 11/18/16 14:26 77 18 95 Room Air 11/18/16 13:40 98.2 101 19 140/80 96 Physical Exam GENERAL: Well-nourished, well-developed patient in NAD. SKIN: Warm and dry. No rash. HEAD: Normocephalic. Atraumatic. EYES: Pupils equal and round. No scleral icterus. No injection or drainage. ENT: No nasal bleeding or discharge. Mucous membranes pink and moist. NECK: Supple. Trachea midline. CARDIOVASCULAR: Regular rate and rhythm. S1, S2 noted. No murmur appreciated. RESPIRATORY: No accessory muscle use. Clear to auscultation. Breath sounds equal bilaterally. GASTROINTESTINAL: Abdomen soft, non-tender, nondistended. Normoactive bowel sounds x4. + subcutaneous superficial elliptical mass- hematoma on the abdomen , slightly tender MUSCULOSKELETAL: No obvious deformities. Extremities without clubbing, cyanosis , or edema. NEUROLOGICAL: Awake and alert. No obvious cranial nerve deficits. Motor grossly within normal limits. 5/5 muscle strength in bilateral upper and lower extremities. Normal speech. PSYCHIATRIC: appears depressed Laboratory Laboratory Tests Test 11/18/16 11/18/16 14:25 14:26 White Blood Count 9.2 Red Blood Count 5.08 Hemoglobin 14.4 Hematocrit 42.8 Mean Corpuscular Volume 84.2 Mean Corpuscular Hemoglobin 28.4 Mean Corpuscular Hemoglobin 33.7 Concent Red Cell Distribution Width 14.6 Platelet Count 291 Mean Platelet Volume 7.1 Neutrophils (%) (Auto) 68.4 Lymphocytes (%) (Auto) 17.6 Monocytes (%) (Auto) 9.4 Eosinophils (%) (Auto) 4.1 Basophils (%) (Auto) 0.5 Neutrophils # (Auto) 6.3 Lymphocytes # (Auto) 1.6 Monocytes # (Auto) 0.9 Eosinophils # (Auto) 0.4 Basophils # (Auto) 0.0 CBC Comment DIFF FINAL Differential Comment Sodium Level 138 Potassium Level 3.7 Chloride Level 104 Carbon Dioxide Level 25.9 Anion Gap 8 Blood Urea Nitrogen 4 Creatinine 0.51 Estimat Glomerular Filtration 198 Rate Random Glucose 90 Calcium Level 9.4 Total Bilirubin 0.6 Aspartate Amino Transf 20 (AST/SGOT) Alanine Aminotransferase 34 (ALT/SGPT) Alkaline Phosphatase 107 Total Protein 8.1 Albumin 4.0 Activated Partial 98.3 Thromboplast Time Result Diagram: 11/18/16 1425 11/18/16 1425 Imaging Last Impressions Hip MRI 11/18/16 0000 Signed Impressions: Service Date/Time: Friday, November 18, 2016 15:32 - CONCLUSION: Extensive degenerative change in the right hip with no evidence of a joint effusion or hemarthrosis. Pj Sinha MD Assessment and Plan Assessment and Plan Mr. Gonzalez is a 26-year-old male with a known history of hemophilia A, history of hemarthrosis with severe degenerative disease, chronic pain and tobacco use who presented to the emergency room with complaints of worsening right hip pain and abdominal bruising. Patient has had recent hospitalization from 10/11/16-10/19/16. Intractable pain, acute on chronic pain with severe degenerative disease from recurrent hemarthrosis and hemophilia A: - MRI report reviewed, extensive degenerative change in the right hip with no evidence of a joint effusion or hemarthrosis. - Currently on Feiba and NovoSeven at home with self injections through [facility]. Will possibly need some timing adjustment. - Continue with pain management, Morphine 60 mg PO Q12 hr and Oxycodone 30 mg PO Q4 hr PRN. - Hematology consulted, sees Dr. Adam outpatient, appreciate input. - APTT elevated, 98.3 - PT consult if am if stable Subcutaneous hematoma- abdomen: Monitor area/size and for any active bleeding. Follow up am labs. Tobacco Abuse: Counseled on cessation. Nicorette gum ordered. DVT prophylaxis: SCDs/TEDs Written by Laverne Moura, acting as scribe for Dr. Monk on 11/18/16 at 17: 59. Laverne Moura Nov 18, 2016 18:03 Nicolás Green MD Nov 18, 2016 19:09
[2016-11-18] MEDS ORDERED: ONDANSETRON HCL 4 MG/2 ML VIAL IVP PRN (18:15)
[2016-11-18] MEDS ORDERED: ACETAMINOPHEN 325 MG TAB PO PRN (18:15)
[2016-11-18] MEDS ORDERED: BISACODYL 10 MG SUPP RECTAL PRN (18:15)
[2016-11-18] MEDS: MORPHINE SULFATE 60 MG CONTROLLED RELEASE TAB PO SCH (20:20)
[2016-11-18] MEDS: ALPRAZolam 0.5 MG TAB PO PRN (20:20)
--- NOTE | 2016-11-18 21:20 | MB ---
cc: JENNIFER HARPER MD DATE OF : 1990 DATE OF CONSULTATION: 11/18/2016 CONSULT REQUESTED BY: The hospitalist physicians. REASON FOR CONSULTATION 1. 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 2. Circulating factor inhibitor. CHIEF COMPLAINT One week history of progressive non-relenting pain in the right hip associated with pain in the left elbow. He also reports having a fairly large bruise on his lower abdomen. HISTORY OF PRESENT ILLNESS Mr. 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 He was born and raised in the [facility] and was treated at various hospitals for his hemophilia, including the [facility] [address], [facility], as well as [facility] in [facility]. He has had a very difficult to manage hemophilia over the past several years due to the presence of the factor as well as development of extensive degenerative joint disease. He is unable to undergo surgery due to the high-risk bleeding. He tells me he was "passed around" between these various tertiary referral centers [place] he started to relocate to [place] in June of 2016. He subsequently established follow up with us at [place]. He had been on a combination of NovoSeven and FEIBA. He takes maintenance doses daily of each of them and when he is in a bleeding crisis or has complications of bleeding, he takes more frequent doses. On average he requires hospitalization essentially every month. Upon interview today, Mr. Gonzalez is visibly frustrated and very upset with his current condition. He tells me never previously in his life has he had such frequent admissions. He tells me he has never had such severe pain either. He is not certain how to progress. Earlier today he did undergo MRI of the right hip which revealed no hemarthrosis. PAST MEDICAL HISTORY: 1. Hemophilia A. 2. Hemarthrosis. 3. High factor inhibitor titers. 4. Current smoker. 5. Arthritis. 6. Anxiety. PAST SURGICAL HISTORY: 1. Infusion port placement. Replacement multiple times. 2. Compartment syndrome. 3. Fasciotomy of the right forearm. 4. I&D of the left knee. 5. Septic arthritis. 6. Left femoral fracture with ORIF. 7. Left knee radiation synovectomy. FAMILY HISTORY: Parents are living. He had three brothers who had severe hemophilia A, two of whom have . SOCIAL HISTORY: He is single, disabled, current smoker. He tells me he works for [employer]. ALLERGIES: NO KNOWN DRUG ALLERGIES. HE IS INTOLERANT OF NONSTEROIDAL ANTI-INFLAMMATORY DRUGS. CURRENT INPATIENT MEDICATIONS: 1. Tylenol 650 milligrams q4 hours for fever. 2. Colace 10 milligrams per rectum, as needed for constipation. 3. Morphine sulfate longacting 60 milligrams q12 hours. 4. Nicotine patches. 5. Zofran 4 milligrams q6 hours. 6. FEIBA 7,500 units every 12 hours. 7. NovoSeven 10 milligrams IV q6 hours. REVIEW OF SYSTEMS: Please see HPI. In addition to this, he reports anxiety, depression, fatigue. He denies overt bleeding other than having a bruise on his lower abdomen. The patient reports severe right hip pain, left elbow pain, pain in his knees. He reports he is unable to walk due to the pain and decreased range of motion. PHYSICAL EXAMINATION: Vital signs: Temperature 98.2 degrees Fahrenheit, heart rate 78 beats a minute, respiratory rate 18, blood pressure 130/80, O2 sats 99% on room air. General physical appearance: Fidel is a young male, he is sitting up in bed, he appears to be somewhat anxious. He is in some pain. HEENT: Head atraumatic, normocephalic, conjunctive are not pale, sclerae anicteric, EOMI, PERRLA. Oral exam, no pharyngeal erythema. Neck: No palpable cervical or supraclavicular lymphadenopathy. Respiratory exam: Good air movement bilaterally. Normal breath sounds. Cardiovascular: Regular rate and rhythm, S1-S2. No obvious murmurs, rubs or gallops. Abdomen: Thin belly, soft, nontender, nondistended. No palpable organ enlargement. He does have approximately three inch superficial bruise over the lower abdomen just to the right of the midline. Extremities: Lower extremities, no pretibial edema or calf tenderness. He has chronic joint changes. 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 LABORATORY FINDINGS Blood work dated 11/18/2016: WBC count 9.2, hemoglobin 14.4 gm/dl, hematocrit 42.8%, platelet count 291, absolute neutrophil count 6.3. Chemistries: Sodium 139, potassium 3.7, chloride 104, bicarb 26. BUN 4, creatinine 0.51, EGFR 198, random glucose 90, calcium 9.4, total bilirubin 0.6, AST 20, ALT 34, alkaline phosphatase 107, albumin 4. IMAGING STUDIES Hip MRI dated 11/18/2016: Extensive degenerative changes in the right hip with no evidence of joint effusion or hemarthrosis. ASSESSMENT Mr. 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 He has frequent hemarthrosis episodes per his own description. He requires hospitalization almost on a monthly basis. It is interesting to note, however, that repeated imaging scans have yet to demonstrate a significant hemarthrosis and he is yet to demonstrate a significant clinical bleed. At any rate, he comes in complaining of severe pain. His PTT is prolonged at close to 100 seconds. In the past we have noted him to come in with high PT, PTT, only for these numbers to correct with more frequent factor dosi I did have a talk with Fidel today regarding his symptoms. I sympathize with him and told him I do understand his frustrations. He clearly, in my opinion, needs evaluation by some form of specialist, orthopedic surgeon, who is comfortable performing surgery on patients with hemophilia. I had initiated referral process for him to be evaluated for right hip replacement, so as to control his symptoms of pain and restore some form of functionality. RECOMMENDATIONS Severe right-sided hip pain: I have recommended increasing the dosing of the FEIBA and NovoSeven. Repeat PTT levels daily. Pain control: Continue his outpatient regimen of long and short acting opioids. He is on rather high doses but this is due to a lifetime of pain and gradual up titration over the past many years. I will see the patient in followup daily. MD DAVID Tate/MASSIMO /7:45 PM /8:39 PM
[2016-11-18 21:30] VITALS: BP 107/67; PULSE 67; RESP 16; TEMP 97.6; O2SAT 97
[2016-11-18] MEDS: [UNRECOGNIZED DRUG - OTHER] IV SCH (21:48)
[2016-11-18] MEDS: NICOTINE 4 MG/GUM CHEW PRN (21:58)
[2016-11-19] VITALS (7 sets, daily range): BP systolic 105–126; BP diastolic 61–73; PULSE 75–97; RESP 16–20; TEMP 97.3–99.2; O2SAT 96–97
[2016-11-19] MEDS: [UNRECOGNIZED DRUG - OTHER] IV SCH ×2 (01:34→07:15)
[2016-11-19] MEDS: NICOTINE 4 MG/GUM CHEW PRN ×6 (01:46→23:48)
[2016-11-19] MEDS: ALPRAZolam 0.5 MG TAB PO PRN ×3 (05:30→21:16)
[2016-11-19 06:12] LABS: AUTOMATED NEUTROPHIL # 5.8 TH/MM3 (1.8-7.7); BASOPHIL # 0.1 TH/MM3 (0-0.2); BASOPHIL % 0.9 % (0.0-2.0); EOSINOPHIL # 0.7 TH/MM3 (0-0.4); HEMATOCRIT 39.5 % (39.0-51.0); LYMPH % 24.3 % (9.0-44.0); LYMPHOCYTE # 2.4 TH/MM3 (1.0-4.8); MEAN CELL VOLUME 83.6 FL (80.0-100.0); MEAN CORPUSCULAR HEMOGLOBIN 29.4 PG (27.0-34.0); MEAN CORPUSCULAR HGB CONC 35.2 % (32.0-36.0); MONO % 9.2 % (0.0-8.0); NEUT % 58.6 % (16.0-70.0); PLATELET COUNT 227 TH/MM3 (150-450); RED BLOOD COUNT 4.73 MIL/MM3 (4.50-5.90); RED CELL DISTRIBUTION WIDTH 14.6 % (11.6-17.2)
[2016-11-19 06:18] LABS: HEMO FLAGS AUTO DIFF
[2016-11-19 08:01] LABS: BANDS 4 % (0-6); BASOPHILS 1 % (0-2); EOSINOPHILS 7 % (0-4); NEUTROPHIL # MANUAL DIFF 5.2 TH/MM3 (1.8-7.7); PLATELET ESTIMATE SMEAR NORMAL (NORMAL); PLATELET MORPHOLOGY NORMAL (NORMAL); POLYS (SEG NEUTROPHILS) 48 % (16-70); SCAN/DIFF FINAL DIFF MANUAL; WBC DIFF SAMPLE 100
--- NOTE | 2016-11-19 08:12 | PD.ONC.PN ---
Subjective Subjective Remarks Patient seen and examined, he tells me he is in severe pain, he is laying in bed in position. Patient reports not being able to sleep well last night he also reports not having much of an appetite. He denies overt bleeding. He remains afebrile. Objective Data Date Time Temp Pulse Resp B/P Pulse Ox O2 Delivery O2 Flow Rate FiO2 11/19/16 04:00 97.8 84 16 105/71 97 11/19/16 00:30 97.3 75 16 126/73 96 11/18/16 21:30 97.6 67 16 107/67 97 11/18/16 17:00 78 18 130/80 99 Room Air 11/18/16 14:26 77 18 95 Room Air 11/18/16 13:40 98.2 101 19 140/80 96 Result Diagram: 11/19/16 0530 11/18/16 1425 Laboratory Results Laboratory Tests Test 11/18/16 11/18/16 11/19/16 14:25 14:26 05:30 White Blood Count 9.2 TH/MM3 10.0 TH/MM3 Red Blood Count 5.08 MIL/MM3 4.73 MIL/MM3 Hemoglobin 14.4 GM/DL 13.9 GM/DL Hematocrit 42.8 % 39.5 % Mean Corpuscular Volume 84.2 FL 83.6 FL Mean Corpuscular Hemoglobin 28.4 PG 29.4 PG Mean Corpuscular Hemoglobin 33.7 % 35.2 % Concent Red Cell Distribution Width 14.6 % 14.6 % Platelet Count 291 TH/MM3 227 TH/MM3 Mean Platelet Volume 7.1 FL 7.5 FL Neutrophils (%) (Auto) 68.4 % 58.6 % Lymphocytes (%) (Auto) 17.6 % 24.3 % Monocytes (%) (Auto) 9.4 % 9.2 % Eosinophils (%) (Auto) 4.1 % 7.0 % Basophils (%) (Auto) 0.5 % 0.9 % Neutrophils # (Auto) 6.3 TH/MM3 5.8 TH/MM3 Lymphocytes # (Auto) 1.6 TH/MM3 2.4 TH/MM3 Monocytes # (Auto) 0.9 TH/MM3 0.9 TH/MM3 Eosinophils # (Auto) 0.4 TH/MM3 0.7 TH/MM3 Basophils # (Auto) 0.0 TH/MM3 0.1 TH/MM3 CBC Comment DIFF FINAL AUTO DIFF Differential Comment FINAL DIFF MANUAL Sodium Level 138 MEQ/L Potassium Level 3.7 MEQ/L Chloride Level 104 MEQ/L Carbon Dioxide Level 25.9 MEQ/L Anion Gap 8 MEQ/L Blood Urea Nitrogen 4 MG/DL Creatinine 0.51 MG/DL Estimat Glomerular Filtration 198 ML/MIN Rate Random Glucose 90 MG/DL Calcium Level 9.4 MG/DL Total Bilirubin 0.6 MG/DL Aspartate Amino Transf 20 U/L (AST/SGOT) Alanine Aminotransferase 34 U/L (ALT/SGPT) Alkaline Phosphatase 107 U/L Total Protein 8.1 GM/DL Albumin 4.0 GM/DL Activated Partial 98.3 SEC Thromboplast Time Differential Total Cells 100 Counted Neutrophils % (Manual) 48 % Band Neutrophils % 4 % Lymphocytes % 26 % Monocytes % 14 % Eosinophils % 7 % Basophils % 1 % Neutrophils # (Manual) 5.2 TH/MM3 Platelet Estimate NORMAL Platelet Morphology Comment NORMAL Administered Medications Medications (Trade) Dose Ordered Sig/Mike Route PRN Reason Start Time Stop Time Status Last Admin Dose Admin Patient Own Medication PT OWN MED: FEIBA 7,500 UN... Q12HR IV 11/18/16 21:00 11/18/16 21:48 Nicotine (Nicotine Gum) 4 mg Q1H PRN CHEW Tobacco cravings 11/18/16 18:30 11/19/16 05:30 Morphine Sulfate (Oramorph Sr) 60 mg Q12HR PO 11/18/16 21:00 11/18/16 20:20 Oxycodone HCl (Roxicodone) 30 mg Q4HR PRN PO SEE LABEL COMMENTS 11/18/16 21:00 11/19/16 05:27 Alprazolam (Xanax) 0.5 mg Q8H PRN PO anxiety 11/18/16 20:15 11/19/16 05:30 Patient Own Medication PT OWN MED: NOVOSE... Q6H IV 11/19/16 01:30 11/19/16 07:15 Objective Remarks General physical appearance: Fidel is a young male, he is sitting up in bed, he appears to be somewhat anxious. He is in some pain. HEENT: Head atraumatic, normocephalic, conjunctive are not pale, sclerae anicteric, EOMI, PERRLA. Oral exam, no pharyngeal erythema. Neck: No palpable cervical or supraclavicular lymphadenopathy. Respiratory exam: Good air movement bilaterally. Normal breath sounds. Cardiovascular: Regular rate and rhythm, S1-S2. No obvious murmurs, rubs or gallops. Abdomen: Thin belly, soft, nontender, nondistended. No palpable organ enlargement. He does have approximately three inch superficial bruise over the lower abdomen just to the right of the midline. Extremities: Lower extremities, no pretibial edema or calf tenderness. He has chronic joint changes. 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 Assessment/Plan Assessment Mr. 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 He has frequent hemarthrosis episodes per his own description. He requires hospitalization almost on a monthly basis. It is interesting to note, however, that repeated imaging scans have yet to demonstrate a significant hemarthrosis and he is yet to demonstrate a significant clinical bleed. At any rate, he comes in complaining of severe pain. His PTT is prolonged at close to 100 seconds. In the past we have noted him to come in with high PT, PTT, only for these numbers to correct with more frequent factor dosi I did have a talk with Fidel today regarding his symptoms. I sympathize with him and told him I do understand his frustrations. He clearly, in my opinion, needs evaluation by some form of specialist, orthopedic surgeon, who is comfortable performing surgery on patients with hemophilia. I had initiated referral process for him to be evaluated for right hip replacement, so as to control his symptoms of pain and restore some form of functionality. Plan Hemophilia A associated with inhibitor with high titers: Continue around-the- clock NovoSeven and FEIBA. No evidence of overt bleeding. PTT ordered for this morning. I've also ordered factor VIII inhibitor titers. Pain associated with hemarthrosis versus degenerative joint disease: Continue home regimen of long and short acting opioids. I've also added on hydromorphone 2 mg IV for breakthrough pain once every 4 hours as needed for severe pain (8-10 on the pain scale). I've advised the nurses to use a protocol of slow infusion for the hydromorphone i.e. this will be mixed in a 100 mL bag of normal saline and will be infused slowly over 60 minutes. Additional instructions have been placed personally by myself and the medication order to avoid oversedation /respiratory suppression. Continue monitoring and continue supportive care. Leno Adam MD Nov 19, 2016 08:12
[2016-11-19] MEDS: MORPHINE SULFATE 60 MG CONTROLLED RELEASE TAB PO SCH ×2 (09:15→21:16)
[2016-11-19] MEDS: HYDROmorphone HCL PF 2 MG/ML VIAL IV PRN ×2 (09:17→19:16)
[2016-11-19 10:42] LABS: APTT (PATIENT) 74.9 SEC (24.3-30.1)
[2016-11-19] MEDS: [UNRECOGNIZED DRUG - OTHER] IV SCH (11:47)
[2016-11-19] MEDS ORDERED: FACTOR VIIA (RECOMB) 5 MG VIAL IV PUSH SCH (13:30)
--- NOTE | 2016-11-19 15:18 | HHI.PR ---
Subjective Remarks states still discomfort but appears comfortable ask for pain meds round the clock had a good BM today per patient Objective Vitals Vital Signs Date Time Temp Pulse Resp B/P Pulse Ox O2 Delivery O2 Flow Rate FiO2 11/19/16 13:54 99.0 82 20 124/61 97 11/19/16 12:30 20 11/19/16 07:50 98.2 84 20 106/63 96 11/19/16 04:00 97.8 84 16 105/71 97 11/19/16 00:30 97.3 75 16 126/73 96 11/18/16 21:30 97.6 67 16 107/67 97 11/18/16 17:00 78 18 130/80 99 Room Air Result Diagram: 11/19/16 0530 11/18/16 1425 Imaging Last Impressions Hip MRI 11/18/16 0000 Signed Impressions: Service Date/Time: Friday, November 18, 2016 15:32 - CONCLUSION: Extensive degenerative change in the right hip with no evidence of a joint effusion or hemarthrosis. Pj Sinha MD Objective Remarks not in acute distress anicteric lungs clear regular rhythm abdomen- good bowel sounds, lower abdomen-, SQ hematoma- feels smaller but overlying increase skin ecchymosis extremities no edema, moves all extremities spontaenously A/P Problem List: (1) 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 (2) Joint pain ICD Code: M25.50 Status: Acute (3) Abdominal pain ICD Code: R10.9 Status: Acute (4) Tobacco abuse ICD Code: Z72.0 Status: Chronic Assessment and Plan Mr. Gonzalez is a 26-year-old male with a known history of hemophilia A, history of hemarthrosis with severe degenerative disease, chronic pain and tobacco use who presented to the emergency room with complaints of worsening right hip pain and abdominal bruising. Patient has had recent hospitalization from 10/11/16-10/19/16. Intractable pain, acute on chronic pain with severe degenerative disease from recurrent hemarthrosis and hemophilia A: - MRI report reviewed, extensive degenerative change in the right hip with no evidence of a joint effusion or hemarthrosis. - Currently on Feiba and NovoSeven at home with self injections through [facility]. Will possibly need some timing adjustment. - Continue with pain management, Morphine 60 mg PO Q12 hr and Oxycodone 30 mg PO Q4 hr PRN. - Hematology consulted, sees Dr. Adam outpatient, appreciate input. - APTT elevated, 98.3 - PT consult - d/w him and staff nurse pain regimen Subcutaneous hematoma- abdomen- stable. H and H stable Tobacco Abuse: Counseled on cessation. Nicorette gum ordered. DVT prophylaxis: SCDs/Nicolás Inman MD Nov 19, 2016 15:18
[2016-11-19] MEDS ORDERED: [UNRECOGNIZED DRUG - OTHER] IV SCH (19:30)
[2016-11-19] MEDS ORDERED: ANTI-INHIBITOR COAGULANT COMPLEX 100 UNIT INJ IV SCH (21:00)
[2016-11-20] VITALS: BP 118/71; PULSE 92; RESP 16; TEMP 98.8; O2SAT 98
[2016-11-20] MEDS: FACTOR VIIA (RECOMB) 5 MG VIAL IV PUSH SCH ×3 (01:44→14:10)
[2016-11-20] MEDS: HYDROmorphone HCL PF 2 MG/ML VIAL IV PRN ×2 (01:55→05:52)
[2016-11-20] MEDS: NICOTINE 4 MG/GUM CHEW PRN ×2 (03:55→08:31)
[2016-11-20 04:00] VITALS: BP 116/73; PULSE 93; RESP 16; TEMP 98.8; O2SAT 97
[2016-11-20] MEDS: ALPRAZolam 0.5 MG TAB PO PRN (05:52)
[2016-11-20 07:15] VITALS: BP 123/73; PULSE 104; RESP 20; TEMP 98.4; O2SAT 95
[2016-11-20] MEDS: MORPHINE SULFATE 60 MG CONTROLLED RELEASE TAB PO SCH (08:27)
[2016-11-20] MEDS ORDERED: [UNRECOGNIZED DRUG - OTHER] IV SCH (09:00)
--- NOTE | 2016-11-20 09:17 | HHI.PR ---
Subjective Remarks awake and alert appears comfortable some loose stools- brown, no hematochezia or melena still with pain - IV pain meds help but not frequent enough Objective Vitals Vital Signs Date Time Temp Pulse Resp B/P Pulse Ox O2 Delivery O2 Flow Rate FiO2 11/20/16 07:15 98.4 104 20 123/73 95 11/20/16 04:00 98.8 93 16 116/73 97 11/20/16 00:00 98.8 92 16 118/71 98 11/19/16 20:00 98.9 97 16 117/70 96 11/19/16 17:02 20 11/19/16 15:50 99.0 94 20 110/65 97 11/19/16 15:13 99.2 82 20 117/70 97 11/19/16 13:54 99.0 82 20 124/61 97 I/O 11/19/16 11/19/16 11/19/16 11/20/16 11/20/16 11/20/16 07:00 15:00 23:00 07:00 15:00 23:00 Intake Total 1920 ml 720 ml Balance 1920 ml 720 ml Intake Oral 1920 ml 720 ml # Voids 5 2 # Bowel Movements 1 Result Diagram: 11/19/16 0530 11/18/16 1425 Imaging Last Impressions Hip MRI 11/18/16 0000 Signed Impressions: Service Date/Time: Friday, November 18, 2016 15:32 - CONCLUSION: Extensive degenerative change in the right hip with no evidence of a joint effusion or hemarthrosis. 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 Gonzalez is a 26-year-old male with a known history of hemophilia A, history of hemarthrosis with severe degenerative disease, chronic pain and tobacco use who presented to the emergency room with complaints of worsening right hip pain and abdominal bruising. Patient has had recent hospitalization from 10/11/16-10/19/16. Intractable pain, acute on chronic pain with severe degenerative disease from recurrent hemarthrosis and hemophilia A: - MRI report reviewed, extensive degenerative change in the right hip with no evidence of a joint effusion or hemarthrosis. - Currently on Feiba and NovoSeven at home with self injections through [facility]. Will possibly need some timing adjustment. - Continue with pain management, Morphine 60 mg PO Q12 hr and Oxycodone 30 mg PO Q4 hr PRN. - Dr. Adam - prn IV Dilaudid as ordered by Dr. Adam - PT ff Subcutaneous hematoma- lower abdomen- decrease in size. Tobacco Abuse: Counseled on cessation. Nicorette gum DVT prophylaxis: SCDs/TEDs Possible DC today after seen and cleared by Nicolás Lee MD Nov 20, 2016 09:17
[2016-11-20 11:50] VITALS: BP 115/63; PULSE 87; RESP 20; TEMP 97.9; O2SAT 97
--- NOTE | 2016-11-20 14:14 | PD.ONC.PN ---
Subjective Subjective Remarks Pt reports the Dilaudid IV is not very helpful, he feels he can manage his pain and factor replacement at home at this point. He would like to be d/mckinley home. Objective Data Date Time Temp Pulse Resp B/P Pulse Ox O2 Delivery O2 Flow Rate FiO2 11/20/16 11:50 97.9 87 20 115/63 97 11/20/16 07:15 98.4 104 20 123/73 95 11/20/16 04:00 98.8 93 16 116/73 97 11/20/16 00:00 98.8 92 16 118/71 98 11/19/16 20:00 98.9 97 16 117/70 96 11/19/16 17:02 20 11/19/16 15:50 99.0 94 20 110/65 97 11/19/16 15:13 99.2 82 20 117/70 97 11/20/16 11/20/16 11/20/16 07:00 15:00 23:00 Intake Total 720 ml Output Total 600 ml Balance 720 ml -600 ml Result Diagram: 11/19/16 0530 11/18/16 1425 Administered Medications Medications (Trade) Dose Ordered Sig/Mike Route PRN Reason Start Time Stop Time Status Last Admin Dose Admin Nicotine (Nicotine Gum) 4 mg Q1H PRN CHEW Tobacco cravings 11/18/16 18:30 11/20/16 08:31 Morphine Sulfate (Oramorph Sr) 60 mg Q12HR PO 11/18/16 21:00 11/20/16 08:27 Oxycodone HCl (Roxicodone) 30 mg Q4HR PRN PO SEE LABEL COMMENTS 11/18/16 21:00 11/20/16 13:01 Alprazolam (Xanax) 0.5 mg Q8H PRN PO anxiety 11/18/16 20:15 11/20/16 05:52 Hydromorphone HCl (Dilaudid Pf Inj) 2 mg Q4H PRN IV PAIN 8-10 MAX 2 DOSES/24 HRS 11/19/16 08:30 11/20/16 05:52 Factor VII (Pha) (Novoseven Rt Inj) 10 mg Q6H IV PUSH 11/20/16 01:30 11/20/16 07:18 Anti-Inhibitor Coagulant Complex (Feiba Nf Inj) 7,500 units Q12H IV 11/19/16 21:00 Hold 11/19/16 21:16 Patient Own Medication PT OWN MED: FEIBA 7,500 UN... Q12HR IV 11/20/16 09:00 11/20/16 10:39 Objective Remarks General physical appearance: Fidel is a young male, he is sitting up in bed, he appears to be somewhat anxious. He is in some pain. HEENT: Head atraumatic, normocephalic, conjunctive are not pale, sclerae anicteric, EOMI, PERRLA. Oral exam, no pharyngeal erythema. Neck: No palpable cervical or supraclavicular lymphadenopathy. Respiratory exam: Good air movement bilaterally. Normal breath sounds. Cardiovascular: Regular rate and rhythm, S1-S2. No obvious murmurs, rubs or gallops. Abdomen: Thin belly, soft, nontender, nondistended. No palpable organ enlargement. He does have approximately three inch superficial bruise over the lower abdomen just to the right of the midline. Extremities: Lower extremities, no pretibial edema or calf tenderness. He has chronic joint changes. [employer]: Generally weak but no obvious focal sensory or motor deficits. Assessment/Plan Assessment Mr. 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 He has frequent hemarthrosis episodes per his own description. He requires hospitalization almost on a monthly basis. It is interesting to note, however, that repeated imaging scans have yet to demonstrate a significant hemarthrosis and he is yet to demonstrate a significant clinical bleed. At any rate, he comes in complaining of severe pain. His PTT is prolonged at close to 100 seconds. In the past we have noted him to come in with high PT, PTT, only for these numbers to correct with more frequent factor dosi I did have a talk with Fidel today regarding his symptoms. I sympathize with him and told him I do understand his frustrations. He clearly, in my opinion, needs evaluation by some form of specialist, orthopedic surgeon, who is comfortable performing surgery on patients with hemophilia. I had initiated referral process for him to be evaluated for right hip replacement, so as to control his symptoms of pain and restore some form of functionality. Plan Hemophilia A associated with inhibitor with high titers: Continue around-the- clock NovoSeven and FEIBA. No evidence of overt bleeding based on MRI of the hip, normal h&H levels and lack of overt bleeding. Factor VIII inhibitor levels have been ordered. Pain associated with hemarthrosis versus degenerative joint disease: Pt not happy with Dilaudid being infused over 2hrs mixed in NS 100cc says it feels "no different" than the pain meds. He has had 4 doses over the past 24hrs.. Clear for d/c from my stand point. Continue monitoring and continue supportive care. Leno Adam MD Nov 20, 2016 14:14
[2016-11-20 15:40] VITALS: BP 110/64; PULSE 62; RESP 20; O2SAT 96
[2016-11-23 23:52] LABS: FACTOR VIII(8) ACTIVITY-I LESS THAN 1 (50-180)
[2016-11-24 11:53] LABS: NIJMEGEN ASSAY 12.8 (<0.6)
== END 2016-11-20 15:42 | disposition home or self-care (01) | DRG 813 ==
LOC: NEPE 13:39 → NEDA 16:15 → HOCA 18:32
PROVIDERS: ADMIT Internal Medicine; ATTEND Internal Medicine
DX: D66 Hereditary factor VIII deficiency (principal); R63.0 Anorexia; G89.29 Other chronic pain; R23.3 Spontaneous ecchymoses; M16.11 Unilateral primary osteoarthritis, right hip; F41.9 Anxiety disorder, unspecified; R10.9 Unspecified abdominal pain; F17.210 Nicotine dependence, cigarettes, uncomplicated; Z68.25 Body mass index [BMI] 25.0-25.9, adult
CPT/HCPCS: 73721; 80053; 85007; 85025; 85027; 85240; 85335; 85730; 96374; 96375; 96376; J1170; J2405; J7189; J7198

== ENCOUNTER 2016-12-10 13:14 | Inpatient (IN) | payer MEDICARE, OTHER ==
[~2016-12-10] VITALS: Ht 177.8 cm; Wt 79.1 kg
[~2016-12-10 13:14] MED LIST changes: -ALPR.5 PO; +ALPR0.5T3 PO; -CLIN1CAP6 PO; -FLOR250C PO; -PANT40TA3 PO; -ROBA500T PO; +[UNRECOGNIZED DRUG - CODE] IV
--- NOTE | 2016-12-10 13:31 | PD ---
HPI Chief Complaint: LEFT KNEE AND ELBOW PAIN /SWELLING Time Seen by Provider: 13:28 Travel History International Travel<30 days: No Contact w/Intl Traveler<30days: No History of Present Illness HPI PATIENT KNOWN HEMOPHILIA A PATIENT, WHO NOTICED LEFT KNEE SWELLING 1 DAY AGO AND LEFT ELBOW SWELLING FOR 2 DAYS NOT IMPROVING IN PAIN OR SWELLING PFSH Past Medical History Arthritis: Yes Blood Disorders: Yes (HEMOPHILIA A ) Anxiety: Yes Depression: No Cancer: No Cardiovascular Problems: No Chemotherapy: Yes Diminished Hearing: No Endocrine: No Gastrointestinal Disorders: Yes (history of ulcers) Genitourinary: No Immune Disorder: No Implanted Vascular Access Dvce: Yes Musculoskeletal: Yes Neurologic: No Psychiatric: Yes Reproductive: No Respiratory: No Radiation Therapy: No Ulcer: Yes Past Surgical History Body Medical Devices: L-femur plate with 8 scews, right SC port. Other Surgery: Yes ([facility], I&D LEFT KNEE ) Social History Alcohol Use: No Tobacco Use: Yes (1 PPD ) Substance Use: No Allergies-Medications (Allergen,Severity, Reaction): Coded Allergies: Nonsteroidal Anti-Inflammatory Agts (Verified Adverse Reaction, Severe, bleeding, 11/18/16) Reported Meds & Prescriptions Reported Meds & Active Scripts Active Morphine ER (Morphine Sulfate) 60 Mg Tab 60 Mg PO Q12HR Nicotine Polacrilex 4 Mg Gum 4 Mg CHEW Q3HR PRN 30 Days Reported Novoseven Rt Inj (Factor VIIa (Recombinant)) 1 Mg Inj 10 Mcg IV HS Novoseven Rt Inj (Factor VIIa (Recombinant)) 1 Mg Inj 10 Mcg IV Q4HR Feiba NF Inj (Antiinhibitor Coagulant Complex Inj) 500 Units Inj 7,500 Units IV Q8HR Oxycodone (Oxycodone HCl) 30 Mg Tab 30 Mg PO Q4HR Alprazolam 0.5 Mg Tab 0.5 Mg PO Q8H Feiba NF Inj (Antiinhibitor Coagulant Complex Inj) 500 Units Inj 7,500 Units INJ DAILY Review of Systems Musculoskeletal: Positive: Arthralgias, Other (SWELLING AND PAIN TO LEFT ELBOW AND KNEE) Physical Exam Narrative GENERAL: SKIN: Warm and dry. HEAD: Atraumatic. Normocephalic. EYES: Pupils equal and round. No scleral icterus. No injection or drainage. ENT: No nasal bleeding or discharge. Mucous membranes pink and moist. NECK: Trachea midline. No JVD. CARDIOVASCULAR: Regular rate and rhythm. RESPIRATORY: No accessory muscle use. Clear to auscultation. Breath sounds equal bilaterally. GASTROINTESTINAL: Abdomen soft, non-tender, nondistended. Hepatic and splenic margins not palpable. MUSCULOSKELETAL: Extremities without clubbing, cyanosis, or edema. NoTED LEFT KNEE SWELLING WITHOUT CELLULITIC CHANGES AND ALSO LEFT ELBOW SWELLING WITHOUT CELLULITIC CHANGES. NEUROLOGICAL: Awake and alert. No obvious cranial nerve deficits. Motor grossly within normal limits. Five out of 5 muscle strength in the arms and legs. Normal speech. PSYCHIATRIC: Appropriate mood and affect; insight and judgment normal. Data Data Last Documented VS Vital Signs Date Time Temp Pulse Resp B/P Pulse Ox O2 Delivery O2 Flow Rate FiO2 12/10/16 14:52 112 20 124/70 97 Room Air 12/10/16 13:52 98.3 Orders Complete Blood Count With Diff (12/10/16 13:36) Comprehensive Metabolic Panel (12/10/16 13:36) Prothrombin Time / Inr (Pt) (12/10/16 13:36) Act Partial Throm Time (Ptt) (12/10/16 13:36) Iv Access Insert/Monitor (12/10/16 13:36) Sodium Chloride 0.9% Flush (Ns Flush) (12/10/16 13:45) Hydromorphone Pf Inj (Dilaudid Pf Inj) (12/10/16 13:45) Consult Hematology (12/10/16 ) Patient Own Medication (12/10/16 13:45) Patient Own Medication (12/10/16 13:45) Hydromorphone Pf Inj (Dilaudid Pf Inj) (12/10/16 14:15) (Hub Use Only)Inp Phy Cons/Ref (12/10/16 ) Patient Own Medication (12/10/16 14:45) Admit To Inpatient (12/10/16 ) Inpatient Certification (12/10/16 ) Diet Regular Basic (12/10/16 Dinner) Activity Bed Rest With Brp (12/10/16 14:53) Admit Order (Ed Use Only) (12/10/16 14:52) Vital Signs (Adult) PEPE.Q4H (12/10/16 14:55) Labs Laboratory Tests Test 12/10/16 14:10 White Blood Count 15.4 TH/MM3 Red Blood Count 2.88 MIL/MM3 Hemoglobin 7.7 GM/DL Hematocrit 23.2 % Mean Corpuscular Volume 80.3 FL Mean Corpuscular Hemoglobin 26.7 PG Mean Corpuscular Hemoglobin 33.3 % Concent Red Cell Distribution Width 15.4 % Platelet Count 370 TH/MM3 Mean Platelet Volume 7.9 FL Neutrophils (%) (Auto) 71.7 % Lymphocytes (%) (Auto) 15.1 % Monocytes (%) (Auto) 8.0 % Eosinophils (%) (Auto) 5.0 % Basophils (%) (Auto) 0.2 % Neutrophils # (Auto) 11.0 TH/MM3 Lymphocytes # (Auto) 2.3 TH/MM3 Monocytes # (Auto) 1.2 TH/MM3 Eosinophils # (Auto) 0.8 TH/MM3 Basophils # (Auto) 0.0 TH/MM3 CBC Comment DIFF FINAL Differential Comment MDM Medical Decision Making Medical Screen Exam Complete: Yes Emergency Medical Condition: Yes Medical Record Reviewed: Yes Differential Diagnosis HEMARTHROSIS TO LEFT ELBOW/KNEE DUE TO HEMOPHILIA A Narrative Course PATIENT HAS HIS OWN FACTORS AND BROUGHT IN WITH HIM FOR TRANSFUSION, DR HARPER AGREES AND RECC ADMISSION FOR FURTHER REPLACEMENT Physician Communication Physician Communication SPOKE WITH DR HARPER WHO RECC FEBIA [id number] DOSE IN ER AND ADMISSION TO [facility], DR CROCKER ACCEPTED ADMISSION Diagnosis Primary Impression: Hemarthrosis Additional Impression: Hemophilia A Admitting Information Admitting Physician Requests: Admit Ethan Walton MD December 10, 2016 13:31
[2016-12-10] MEDS ORDERED: HYDROmorphone HCL PF 1 MG/ML VIAL IV PUSH ONE ×2 (13:45→14:15)
[2016-12-10] MEDS ORDERED: PATIENT OWN MEDICATION IV SCH (13:45)
[2016-12-10] MEDS ORDERED: PATIENT OWN MEDICATION IV ONE (13:45)
[2016-12-10 13:52] VITALS: BP 142/106; PULSE 112; RESP 18; TEMP 98.3; O2SAT 95
[2016-12-10 14:45] LABS: BASOPHIL % 0.2 % (0.0-2.0); EOSINOPHIL # 0.8 TH/MM3 (0-0.4); HEMATOCRIT 23.2 % (39.0-51.0); HEMO FLAGS DIFF FINAL; LYMPH % 15.1 % (9.0-44.0); LYMPHOCYTE # 2.3 TH/MM3 (1.0-4.8); MEAN CELL VOLUME 80.3 FL (80.0-100.0); MEAN CORPUSCULAR HEMOGLOBIN 26.7 PG (27.0-34.0); MEAN CORPUSCULAR HGB CONC 33.3 % (32.0-36.0); NEUT % 71.7 % (16.0-70.0); PLATELET COUNT 370 TH/MM3 (150-450); RED BLOOD COUNT 2.88 MIL/MM3 (4.50-5.90); RED CELL DISTRIBUTION WIDTH 15.4 % (11.6-17.2); WHITE BLOOD COUNT 15.4 TH/MM3 (4.0-11.0)
[2016-12-10] MEDS ORDERED: [UNRECOGNIZED DRUG - OTHER] IV ONE (14:45)
[2016-12-10 14:52] VITALS: BP 124/70; PULSE 112; RESP 20; O2SAT 97
[2016-12-10 15:10] LABS: ALT (GPT) 120 U/L (12-78); ANION GAP 7 MEQ/L (5-15); AST (GOT) 114 U/L (15-37); BICARBONATE 27.9 MEQ/L (21.0-32.0); BLOOD UREA NITROGEN 8 MG/DL (7-18); CHLORIDE 100 MEQ/L (98-107); GLOMERULAR FILTRATION RATE 198 ML/MIN (>89); POTASSIUM 3.9 MEQ/L (3.5-5.1); SODIUM (NA) 135 MEQ/L (136-145)
[2016-12-10 15:12] LABS: ALKALINE PHOSPHATASE 393 U/L (45-117); TOTAL BILIRUBIN ADULT 2.5 MG/DL (0.2-1.0)
[2016-12-10 15:24] LABS: PROTHROMBIN TIME - PATIENT 11.3 SEC (9.8-11.6)
[2016-12-10 17:02] VITALS: PULSE 105; RESP 16
[2016-12-10] MEDS ORDERED: ANTI-INHIBITOR COAGULANT COMPLEX 100 UNIT INJ IV SCH (18:00)
[2016-12-10] MEDS: [UNRECOGNIZED DRUG - OTHER] IV SCH (18:00)
[2016-12-10] MEDS ORDERED: HYDROmorphone HCL PF 2 MG/ML VIAL IV PUSH ONE (18:15)
--- NOTE | 2016-12-10 18:20 | HHI.HP ---
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 Baseline gets around with crutches. This morning with severe pain mainly involving the left lower leg which prompted patient to call EMS and brought in here for further evaluation and management. Patient denies any melena hematochezia no hematuria, no epistaxis.no abdominal pain Patient states he takes his pain medications on a regular basis and this time pain is not relieved with by mouth medications. Review of Systems Constitutional: DENIES: Diaphoretic episodes, Fatigue, Fever, Weight gain, Weight loss, Chills, Dizziness, Change in appetite, Night Sweats Endocrine: DENIES: Heat/cold intolerance, Polydipsia, Polyuria, Polyphagia Eyes: DENIES: Blurred vision, Diplopia, Eye inflammation, Eye pain, Vision loss , Photosensitivity, Double Vision Ears, nose, mouth, throat: DENIES: Tinnitus, Hearing loss, Vertigo, Nasal discharge, Oral lesions, Throat pain, Hoarseness, Ear Pain, Running Nose, Epistaxis, Sinus Pain, Toothache, Odynophagia Respiratory: DENIES: Apneas, Cough, Snoring, Wheezing, Hemoptysis, Sputum production, Shortness of breath Cardiovascular: DENIES: Chest pain, Palpitations, Syncope, Dyspnea on Exertion , PND, Lower Extremity Edema, Orthopnea, Claudication Gastrointestinal: DENIES: Abdominal pain, Black stools, Bloody stools, Constipation, Diarrhea, Nausea, Vomiting, Difficulty Swallowing, Anorexia Genitourinary: DENIES: Sexual dysfunction, Urinary frequency, Urinary incontinence, Urgency, Hematuria, Dysuria, Nocturia, Penile Discharge, Testicular Pain, Testicular Swelling Musculoskeletal: COMPLAINS OF: Joint pain, Muscle aches Integumentary: DENIES: Abnormal pigmentation, Nail changes, Pruritus, Rash Hematologic/lymphatic: COMPLAINS OF: Bruising, DENIES: Lymphadenopathy Immunologic/allergic: DENIES: Eczema, Urticaria Neurologic: COMPLAINS OF: Abnormal gait Psychiatric: COMPLAINS OF: Anxiety Past Family Social History Past Medical History Severe hemophilia a Chronic pain Anxiety disorder Past Surgical History Poymtc-m-[id number] placement History compartment syndrome History of ORIF of left femoral neck fracture History of left knee surgery-radioactive sign the letter to me the right knee Allergies: Coded Allergies: Nonsteroidal Anti-Inflammatory Agts (Verified Adverse Reaction, Severe, bleeding, 11/18/16) Family History Positive family history of hemophilia 3 brothers. Social History Smoker one pack per day Denies alcohol or recreational drug use Physical Exam Vital Signs Vital Signs Date Time Temp Pulse Resp B/P Pulse Ox O2 Delivery O2 Flow Rate FiO2 12/10/16 17:02 105 16 Room Air 12/10/16 14:52 112 20 124/70 97 Room Air 12/10/16 13:57 112 Room Air 12/10/16 13:52 98.3 112 18 142/106 95 Physical Exam GENERAL: Awake and alert oriented 3 SKIN: Ecchymosis noted on the posterolateral aspect of the thigh, left HEAD: Atraumatic. Normocephalic. No temporal or scalp tenderness. EYES: Pupils equal round and reactive. Extraocular motions intact. No scleral icterus. No injection or drainage. ENT: Nose without bleeding, purulent drainage or septal hematoma. Throat without erythema, tonsillar hypertrophy or exudate. Uvula midline. Airway patent. NECK: Trachea midline. No JVD or lymphadenopathy. Supple, nontender, no meningeal signs. CARDIOVASCULAR: Slightly tachycardic 108 and rhythm without murmurs, gallops, or rubs. RESPIRATORY: Clear to auscultation. Breath sounds equal bilaterally. No wheezes , rales, or rhonchi. GASTROINTESTINAL: Abdomen soft, non-tender, nondistended. No hepato-splenomegaly , or palpable masses. No guarding. MUSCULOSKELETAL: Extremities without clubbing, cyanosis, No calf tenderness. Negative Homans sign bilaterally. Left knee effusion with swelling no overlying ecchymosis, left elbow with limitation in range of motion with mild swelling, posterolateral aspect of the thigh with ecchymoses/mild induration, +tenderness NEUROLOGICAL: Awake and alert. Cranial nerves II through XII intact. Motor and sensory grossly within normal limits. motor testing movement limited by pain. Normal speech. Laboratory Laboratory Tests Test 12/10/16 14:10 White Blood Count 15.4 Red Blood Count 2.88 Hemoglobin 7.7 Hematocrit 23.2 Mean Corpuscular Volume 80.3 Mean Corpuscular Hemoglobin 26.7 Mean Corpuscular Hemoglobin 33.3 Concent Red Cell Distribution Width 15.4 Platelet Count 370 Mean Platelet Volume 7.9 Neutrophils (%) (Auto) 71.7 Lymphocytes (%) (Auto) 15.1 Monocytes (%) (Auto) 8.0 Eosinophils (%) (Auto) 5.0 Basophils (%) (Auto) 0.2 Neutrophils # (Auto) 11.0 Lymphocytes # (Auto) 2.3 Monocytes # (Auto) 1.2 Eosinophils # (Auto) 0.8 Basophils # (Auto) 0.0 CBC Comment DIFF FINAL Differential Comment Prothrombin Time 11.3 Prothromb Time International 1.0 Ratio Activated Partial 99.0 Thromboplast Time Sodium Level 135 Potassium Level 3.9 Chloride Level 100 Carbon Dioxide Level 27.9 Anion Gap 7 Blood Urea Nitrogen 8 Creatinine 0.51 Estimat Glomerular Filtration 198 Rate Random Glucose 92 Calcium Level 9.6 Total Bilirubin 2.5 Aspartate Amino Transf 114 (AST/SGOT) Alanine Aminotransferase 120 (ALT/SGPT) Alkaline Phosphatase 393 Total Protein 7.5 Albumin 2.7 Result Diagram: 12/10/16 1410 12/10/16 1410 Assessment and Plan Assessment and Plan 26-year-old male with history of severe hemophilia a presenting with Acute anemia - hemolysis/spontaneous bleeding into the joints/thigh from a patient with severe hemophilia a Hemarthroses- with effusion swelling/pain involving left elbow, left knee,, Left hip/thigh swelling possible hematoma with overlying ecchymoses with limitation in ROM Acute on chronic pain LFTs and indirect bilirubin elevated. - suggestive of hemolysis Type and cross 2 units RBC and transfuse Get imaging studies of the joints involved r/o hemarthroses/hematoma of the thigh/knee, elbow. Get a CT of the abdomen as well (history of ileopsoas bleeding) Monitor for any compartment syndrome. Peripheral pulses strong and equal Give Feiba 7500 IV every 4. and NovoSeven 10 mg IV every 4 alternating Change to IV pain meds Dilaudid 1 mg every 3 prn. Hold po Oxycodone. continue long active Morphine Start Amicar 2 gm po q 6 - History of anxiety disorder Continue on Xanax Leukocytosis- reactive. Monitor for any signs of infection,fever Smoker counseled extensively Consulted and Discussed with Dr. Adam. - Hematology service Signed in error by me Discussed Condition With patient and Dr. Adam Physician Certification 2 Midnight Certification Type: Admission for Inpatient Services Order for Inpatient Services The services are ordered in accordance with Medicare regulations or non- Medicare payer requirements, as applicable. In the case of services not specified as inpatient-only, they are appropriately provided as inpatient services in accordance with the 2-midnight benchmark. Estimated LOS (days): 3 days is the estimated time the patient will need to remain in the hospital, assuming treatment plan goals are met and no additional complications. Post-Hospital Plan: Not yet determined Nicolás Green MD December 10, 2016 18:19 Norman Aponte MD December 10, 2016 22:31
[2016-12-10] MEDS ORDERED: HYDROmorphone HCL PF 1 MG/ML VIAL IV PUSH PRN (18:30)
[2016-12-10 19:00] VITALS: BP 138/74; PULSE 102; RESP 22; O2SAT 95
[2016-12-10 20:00] VITALS: BP 131/76; PULSE 108; RESP 21; TEMP 98.8; O2SAT 98
[2016-12-10] MEDS ORDERED: AMINOCAPROIC ACID 500 MG TAB PO SCH (20:00)
--- NOTE | 2016-12-10 20:29 | RADRPT ---
EXAM DATE/TIME: 12/10/2016 18:59 [facility] COMPARISON: No previous studies available for comparison. INDICATIONS : Hematoma ORAL CONTRAST: No oral contrast ingested. RADIATION DOSE: 7.19 CTDIvol (mGy) MEDICAL HISTORY : Hemophilia. Chemotherapy. SURGICAL HISTORY : Right arm faciotomy. ENCOUNTER: Initial ACUITY: 1 day PAIN SCALE: 5/10 LOCATION: Diffuse abdomen/pelvis TECHNIQUE: Volumetric scanning of the abdomen and pelvis was performed. Using automated exposure control and ad justment of the mA and/or kV according to patient size, radiation dose was kept as low as reasonably achievable to obtain optimal diagnostic quality images. FINDINGS: There is subsegmental atelectasis in the both bases. The liver and spleen are free of focal defects. The gallbladder and pancreas demonstrate no abnormality. The adrenal glands are normal. The kidneys demonstrate no evidence of solid renal mass or hydronephrosis. No free fluid or abdominal masses are identified. No para-aortic adenopathy is seen. Examination of the right lower quadrant demonstrates n o abnormality. The appendix is identified and appears normal. Examination of the pelvis demonstrates no evidence of free fluid or pelvic mass. No abnormally enlarg ed inguinal or retroperitoneal lymph nodes are present. The bladder is unremarkable. CONCLUSION: 1. No evidence of acute abdominal or pelvic process. No masses are identified. Scot Flores MD on December 10, 2016 at 20:25 Board Certified Radiologist. This report was verified electronically.
--- NOTE | 2016-12-10 20:32 | RADRPT ---
EXAM DATE/TIME: 12/10/2016 19:04 [facility] COMPARISON: CT ABDOMEN & PELVIS W/O CONTRAST, December 10, 2016, 18:59. INDICATIONS : Hemarthrosis RADIATION DOSE: 47.18 CTDIvol (mGy) MEDICAL HISTORY : Hemophilia. Chemotherapy. SURGICAL HISTORY : Right arm faciotomy. ENCOUNTER: Initial ACUITY: 1 day PAIN SCALE: 5/10 LOCATION: Left hip TECHNIQUE: Volumetric scanning of the hip was performed. Using automated exposure control and adjustment of the mA and/or kV according to patient size, radiation dose was kept as low as reasonably achievable to o btain optimal diagnostic quality images. FINDINGS: Examination of the pelvis demonstrates no evidence of free fluid or pelvic mass. No abnormally enlarg ed inguinal or retroperitoneal lymph nodes are present. The bladder is unremarkable. There is no evidence of acute fracture. Bony mineralization is normal. Severe osteoarthritis with sub chondral cyst formation and sclerosis involving the right hip. There is a 7.2 x 4.2 cm hematoma in the left gluteus medius muscle. CONCLUSION: 1. 7.2 x 4.2 symmetr hematoma in left leads mediastinal Scot Flores MD on December 10, 2016 at 20:27 Board Certified Radiologist. This report was verified electronically.
--- NOTE | 2016-12-10 20:35 | RADRPT ---
EXAM DATE/TIME: 12/10/2016 19:09 [facility] COMPARISON: No previous studies available for comparison. INDICATIONS : Hemarthrosis RADIATION DOSE: 47.16 CTDIvol (mGy) MEDICAL HISTORY : Hemophilia. Chemotherapy. SURGICAL HISTORY : Right arm faciotomy. ENCOUNTER: Initial ACUITY: 1 day PAIN SCALE: 5/10 LOCATION: Left knee TECHNIQUE: Volumetric scanning of the knee was performed. Using automated exposure control and adjustment of th e mA and/or kV according to patient size, radiation dose was kept as low as reasonably achievable to obtain optimal diagnostic quality images. FINDINGS: There is severe arthropathy involving the left knee like related to the patient's hemophilia. A supra patellar joint effusion is present. There is no evidence of acute fracture. No soft tissue hematomas identified. There is internal fixation of a fracture of the distal femur. CONCLUSION: 1. Joint effusion 2. There is no evidence of acute fracture. Scot Flores MD on December 10, 2016 at 20:32 Board Certified Radiologist. This report was verified electronically.
--- NOTE | 2016-12-10 20:37 | RADRPT ---
EXAM DATE/TIME: 12/10/2016 19:14 [facility] COMPARISON: No previous studies available for comparison. INDICATIONS : Hemarthrosis RADIATION DOSE: 41.45 CTDIvol (mGy) MEDICAL HISTORY : Hemophilia. Chemotherapy. SURGICAL HISTORY : Right arm faciotomy. ENCOUNTER: Initial ACUITY: 1 day PAIN SCALE: 5/10 LOCATION: Left elbow TECHNIQUE: Volumetric scanning of the elbow was performed. Using automated exposure control and adjustment of t he mA and/or kV according to patient size, radiation dose was kept as low as reasonably achievable to obtain optimal diagnostic quality images. 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 A joint effusion is present. No hematoma is identified. CONCLUSION: 1. Joint effusion. There is no evidence of acute fracture. Scot Flores MD on December 10, 2016 at 20:34 Board Certified Radiologist. This report was verified electronically.
[2016-12-10] MEDS: FACTOR VIIA (RECOMB) 5 MG VIAL IV PUSH SCH (21:35)
[2016-12-10] MEDS: ALPRAZolam 0.5 MG TAB PO SCH (21:35)
[2016-12-10] MEDS: HYDROmorphone HCL PF 1 MG/ML VIAL IV PUSH PRN (21:36)
[2016-12-10] MEDS ORDERED: [UNRECOGNIZED DRUG - OTHER] IV SCH (22:00)
[2016-12-10] MEDS: MORPHINE SULFATE 60 MG CONTROLLED RELEASE TAB PO SCH (22:09)
[2016-12-10] MEDS: AMINOCAPROIC ACID 500 MG TAB PO SCH (22:09)
[2016-12-11] VITALS (11 sets, daily range): BP systolic 101–128; BP diastolic 59–67; PULSE 89–125; RESP 15–23; TEMP 99.1–103.4; O2SAT 80–98
[2016-12-11] MEDS: AMINOCAPROIC ACID 500 MG TAB PO SCH ×7 (00:43→23:56)
[2016-12-11] MEDS: HYDROmorphone HCL PF 1 MG/ML VIAL IV PUSH PRN ×3 (00:43→07:19)
[2016-12-11] MEDS: ALPRAZolam 0.5 MG TAB PO SCH ×4 (02:01→23:54)
[2016-12-11] MEDS: [UNRECOGNIZED DRUG - OTHER] IV SCH ×3 (02:03→20:44)
[2016-12-11 04:50] LABS: HEMATOCRIT 21.4 % (39.0-51.0); MEAN CELL VOLUME 81.8 FL (80.0-100.0); PLATELET COUNT 307 TH/MM3 (150-450); RED BLOOD COUNT 2.62 MIL/MM3 (4.50-5.90); REVIEW FLAG FINAL; WHITE BLOOD COUNT 12.3 TH/MM3 (4.0-11.0)
[2016-12-11 05:13] LABS: ALKALINE PHOSPHATASE 348 U/L (45-117); ALT (GPT) 87 U/L (12-78); ANION GAP 11 MEQ/L (5-15); AST (GOT) 52 U/L (15-37); BICARBONATE 26.6 MEQ/L (21.0-32.0); BLOOD UREA NITROGEN 5 MG/DL (7-18); CHLORIDE 99 MEQ/L (98-107); GLOMERULAR FILTRATION RATE 229 ML/MIN (>89); POTASSIUM 4.1 MEQ/L (3.5-5.1); SODIUM (NA) 137 MEQ/L (136-145); TOTAL BILIRUBIN ADULT 2.6 MG/DL (0.2-1.0)
[2016-12-11] MEDS: FACTOR VIIA (RECOMB) 5 MG VIAL IV PUSH SCH ×2 (05:58→14:00)
[2016-12-11] MEDS ORDERED: HYDROmorphone HCL PF 1 MG/ML VIAL IV PRN (07:30)
[2016-12-11] MEDS ORDERED: HYDROMORPHONE IV PRN (08:00)
[2016-12-11] MEDS ORDERED: SODIUM CHLORIDE 0.9% IV PRN (08:00)
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
--- NOTE | 2016-12-11 08:14 | HHI.PR ---
Subjective Remarks per patient states in pain all night- joints no nausea, vomiting or abdominal pain observed from outside- all the while sleeping when I walked in and when wakened up- complains of pain right away Objective Vitals Vital Signs Date Time Temp Pulse Resp B/P Pulse Ox O2 Delivery O2 Flow Rate FiO2 12/11/16 07:27 101.2 107 15 128/63 90 12/10/16 20:00 98.8 108 21 131/76 98 12/10/16 19:00 102 22 138/74 95 Room Air 12/10/16 17:02 105 16 Room Air 12/10/16 14:52 112 20 124/70 97 Room Air 12/10/16 13:57 112 Room Air 12/10/16 13:52 98.3 112 18 142/106 95 Result Diagram: 12/11/16 0407 12/11/16 0407 Imaging Last Impressions Upper Extremity CT 12/10/16 0000 Signed Impressions: Service Date/Time: Saturday, December 10, 2016 19:14 - CONCLUSION: 1. Joint effusion. There is no evidence of acute fracture. Scot Flores MD Lower Extremity CT 12/10/16 0000 Signed Impressions: Service Date/Time: Saturday, December 10, 2016 19:04 - CONCLUSION: 1. 7.2 x 4.2 symmetr hematoma in left leads mediastinal Scot Flores MD Abdomen/Pelvis CT 12/10/16 0000 Signed Impressions: Service Date/Time: Saturday, December 10, 2016 18:59 - CONCLUSION: 1. No evidence of acute abdominal or pelvic process. No masses are identified. Scot Flores MD Objective Remarks oriented x 3 anicteric lungs- decreased breath sounds, no rales regular rhythm abdomen soft, nontender extremities- LUE - left elbow mild swelling with pain with extension, wrist no swelling Left knee with effusion, lateral aspect of thigh - mild swelling moves feet and toes freely very good peripheral pulses all through A/P Assessment and Plan 26-year-old male with history of severe hemophilia a presenting with Acute anemia - hemolysis/spontaneous bleeding into the joints/thigh from a patient with severe hemophilia A for 2 units RBC transfusion Hemarthroses- with effusion swelling/pain involving left elbow, left knee,, Left hip/thigh hematoma with overlying ecchymoses with limitation in ROM Acute on chronic pain LFTs and indirect bilirubin elevated- trending down. - suggestive of hemolysis No signs of compartment syndrome. Peripheral pulses strong and equal Give Feiba 7500 IV every 4. and NovoSeven 10 mg IV every 4 alternating Change to IV pain meds Dilaudid 2 mg every 3 prn. Hold po Oxycodone. continue long active Morphine Amicar 2 gm po q 6 - History of anxiety disorder Continue on Xanax New Fever 101- ? septic joint history of septic arthritis in the past check UA, CXR, blood culture x 2- (one from peripheral and one from port) will d/w Dr Adam regarding ? aspiration get lactic acid protocol Smoker counseled extensively PT when more comfortable Nicolás Green MD December 11, 2016 08:14
[2016-12-11] MEDS: MORPHINE SULFATE 60 MG CONTROLLED RELEASE TAB PO SCH ×2 (08:53→20:45)
--- NOTE | 2016-12-11 09:19 | RADRPT ---
EXAM DATE/TIME: 12/11/2016 09:04 [facility] COMPARISON: CHEST SINGLE AP, September 15, 2016, 19:50. INDICATIONS : Fever. MEDICAL HISTORY : hemophilia, chemotherapy SURGICAL HISTORY : infusaport ENCOUNTER: Subsequent ACUITY: 2 days PAIN SCORE: 0/10 LOCATION: Bilateral chest FINDINGS: A single view of the chest demonstrates the lungs to be symmetrically aerated without evidence of mas s, or effusion. A faint consolidation within the lingula likely atelectasis with a poor inspiratory e ffort. The cardiomediastinal contours are unremarkable. Osseous structures are intact. CONCLUSION: A faint consolidation within the lingula likely atelectasis with a poor inspiratory effort. Right sided [id number] catheter in excellent position. Garrett Altman MD on December 11, 2016 at 9:16 Board Certified Radiologist. This report was verified electronically.
[2016-12-11 12:35] LABS: BLOOD, URINE NEG (NEG); GLUCOSE,URINE NEG (NEG); KETONE, URINE NEG (NEG); NITRITE,URINE NEG (NEG); PH, URINE 6.5 (5.0-8.5)
[2016-12-11 12:36] LABS: URINE COLOR ORANGE (YELLW/STRAW)
[2016-12-11 12:37] LABS: COMMENT (UR) CULTURE INDICATED; CULTURE IF INDICATED CULTURE INDICATED
[2016-12-11] MEDS: LEVOFLOXACIN 750 MG TAB PO SCH (19:10)
[2016-12-11] MEDS ORDERED: ACETAMINOPHEN 325 MG TAB PO ONE (19:45)
[2016-12-11] MEDS ORDERED: VANCOMYCIN INJ 1,000 MG in SODIUM CHLOR 0.9% 250 ML INJ 250 ML IV ONE (20:00)
[2016-12-11] MEDS: HYDROmorphone HCL PF 2 MG/ML VIAL IV PRN (22:00)
[2016-12-11] MEDS: [UNRECOGNIZED DRUG - OTHER] IV SCH (23:55)
[2016-12-12] VITALS (7 sets, daily range): BP systolic 95–130; BP diastolic 53–83; PULSE 89–115; RESP 17–18; TEMP 96.2–99.1; O2SAT 96–99
[2016-12-12] MEDS: HYDROmorphone HCL PF 2 MG/ML VIAL IV PRN ×2 (03:51→06:46)
[2016-12-12] MEDS ORDERED: ANTI-INHIBITOR COAGULANT COMPLEX 100 UNIT INJ IV SCH (05:00)
[2016-12-12] MEDS: [UNRECOGNIZED DRUG - OTHER] IV SCH ×2 (05:14→13:37)
[2016-12-12] MEDS: AMINOCAPROIC ACID 500 MG TAB PO SCH ×4 (05:14→22:52)
[2016-12-12] MEDS: PCA - TOTAL MG DILAUDID DELIVERED PER SHIFT SCH ×3 (07:30→22:00)
[2016-12-12] MEDS ORDERED: diphenhydrAMINE HCL 25 MG CAP PO PRN (07:30)
[2016-12-12] MEDS ORDERED: NALOXONE HCL 0.4 MG/ML AMP IV PRN (07:30)
--- NOTE | 2016-12-12 07:42 | PD.ONC.PN ---
Subjective Subjective Remarks Patient reports uncontrolled pain, had fever spikes of 103.4F yesterday, with sustained temperatures of over 102F over most of the day. He was given vancomycin 1 and was started on levofloxacin. Overall he reports severe uncontrolled pain, he is not happy with the current arrangement of dilated to milligrams IV over 1 hour every 3 hours. Reports severe pain in his left hip, left elbow and left knee. He was given 2 units packed red blood cells yesterday. Objective Data Date Time Temp Pulse Resp B/P Pulse Ox O2 Delivery O2 Flow Rate FiO2 12/12/16 04:00 97.5 107 17 130/83 99 12/12/16 00:32 97.9 98 18 110/55 98 12/12/16 00:07 98.3 102 18 110/62 96 12/11/16 23:30 99.4 99 18 109/59 98 12/11/16 20:00 103.4 125 18 125/67 95 12/11/16 19:07 102.2 12/11/16 19:06 102.2 12/11/16 15:49 99.6 93 23 104/60 80 12/11/16 15:02 118/64 12/11/16 14:58 94 118/64 12/11/16 14:45 96 101/59 12/11/16 14:29 89 114/67 93 12/11/16 11:15 99.1 98 18 116/59 91 12/12/16 12/12/16 12/12/16 07:00 15:00 23:00 Intake Total 240 ml Output Total 650 ml Balance -410 ml Result Diagram: 12/11/16 0407 12/11/16 0407 Laboratory Results Laboratory Tests Test 12/11/16 12/11/16 11:36 12:20 Lactic Acid Level 0.7 mmol/L Urine Color ORANGE Urine Turbidity CLEAR Urine pH 6.5 Urine Specific [place] 1.021 Urine Protein TRACE mg/dL Urine Glucose (UA) NEG mg/dL Urine Ketones NEG mg/dL Urine Occult Blood NEG Urine Nitrite NEG Urine Bilirubin MOD Urine Urobilinogen GREATER THAN 12.0 MG/DL Urine Leukocyte Esterase SMALL Urine RBC LESS THAN 1 /hpf Urine WBC 16 /hpf Microscopic Urinalysis Comment CULTURE INDICATED Culture Results Microbiology Date/Time Procedure Status Source Growth 12/11/16 11:36 Aerobic Blood Culture Received Blood Other Pending 12/11/16 11:36 Anaerobic Blood Culture Received Blood Other Pending 12/11/16 12:20 Urine Culture Received Urine Clean Catch Pending 12/12/16 06:33 Aerobic Blood Culture Received Blood Other Pending 12/12/16 06:33 Anaerobic Blood Culture Received Blood Other Pending Administered Medications Medications (Trade) Dose Ordered Sig/Mike Route PRN Reason Start Time Stop Time Status Last Admin Dose Admin Alprazolam (Xanax) 0.5 mg Q8H PO 12/10/16 17:30 12/11/16 23:54 Morphine Sulfate (Oramorph Sr) 60 mg Q12HR PO 12/10/16 21:00 12/11/16 20:45 Aminocaproic Acid (Amicar) 2,000 mg Q6HR PO 12/10/16 18:45 12/11/16 13:21 Levofloxacin (Levaquin) 750 mg Q24H PO 12/11/16 18:00 12/11/16 19:10 Patient Own Medication PT OWN MED: FEIBA 7,500 UN... Q8H IV 12/12/16 05:00 12/12/16 05:14 Patient Own Medication PT OWN MED: PT OWN M... Q8H IV 12/12/16 01:00 12/11/16 23:55 Objective Remarks GENERAL PHYSICAL APPEARANCE: Mr. Gonzalez is a young man, he is in obvious distress, he is laying in bed. Skin is damp and sweaty. HEENT: Head atraumatic, normocephalic. Conjunctive are pale. Sclerae are anicteric. Oral exam - no pharyngeal erythema. No blood noted in the oral cavity, no blood noted in the nasal passages. NECK EXAM: Palpable cervical lymphadenopathy. RESPIRATORY EXAM: Good air movement bilaterally, specifically over the bases as well. CARDIOVASCULAR: Tachycardiac, regular, S1-S2. No obvious murmurs, rubs or gallops. ABDOMINAL EXAM: Thin belly, soft and nontender, nondistended. No palpable organ enlargement. LOWER EXTREMITIES: Degenerative joint disease involving the left knee. A well-healed previous surgical incision is noted on the anterior surface. Joint range of motion is severely limited of bilateral knees but more so on the left side. He has some ecchymosis along the gluteal area on the left side. His left upper extremity is wrapped up in Jasiel bandage. He is icing his left elbow and his left knee. FORENSIC ECONOMIST: Generally weak but no localized motor or sensory deficits. Assessment/Plan Assessment 26-year-old male with diagnosis of hemophilia a sister with high levels of circulating factor VIII inhibitor. Presents with hematoma in the left gluteal muscle group, hemarthrosis in the left knee and pain in the left elbow. This is see with a significant drop in his hemoglobin and hematocrit; baseline 13 g/dL down to 7.7 g/dL at presentation. Also spiking fevers of 103.4F etiology with fevers is not known. Currently on empiric antibiotics. Plan 1. Hemophilia A: Continue factor replacement with bypassing agents; FEIBA and NovoSeven, these are cycled every 4 hours. Repeat CBC and PTT this morning. 2. High-grade temperatures: Blood cultures drawn yesterday, results are pending. I have added on vancomycin 1 g every 12 hours for coverage. This man does give himself factor injections at home through his port and I'm concerned about skin contaminants which may be causing sepsis. The fevers persist he may require an echocardiogram as well to rule out endocarditis. 3. Pain control: He is absolutely not satisfied with the current arrangement of hydromorphone 2 mg IV slow infusion every 3 hours. He tells me he is in severe distress, I therefore will discontinue oral oxycodone, IV hydromorphone infusions and will transition him to a hydromorphone HARDBOARD PANEL PRINTER pump. Continue ongoing care. Consider infectious diseases evaluation should his fevers not resolved. Leno Adam MD December 12, 2016 07:42
[2016-12-12] MEDS: ALPRAZolam 0.5 MG TAB PO SCH ×2 (07:52→18:13)
[2016-12-12] MEDS: MORPHINE SULFATE 60 MG CONTROLLED RELEASE TAB PO SCH ×2 (07:52→21:25)
[2016-12-12] MEDS: [UNRECOGNIZED DRUG - OTHER] IV SCH ×3 (09:00→18:14)
[2016-12-12] MEDS: VANCOMYCIN INJ 1,000 MG in SODIUM CHLOR 0.9% 250 ML INJ 250 ML IV SCH ×2 (09:08→21:24)
[2016-12-12] MEDS: FACTOR VIIA (RECOMB) 5 MG VIAL IV PUSH SCH (09:17)
[2016-12-12 10:04] LABS: HEMATOCRIT 25.3 % (39.0-51.0); MEAN CELL VOLUME 78.8 FL (80.0-100.0); MEAN CORPUSCULAR HEMOGLOBIN 26.1 PG (27.0-34.0); MEAN CORPUSCULAR HGB CONC 33.1 % (32.0-36.0); PLATELET COUNT 208 TH/MM3 (150-450); RED BLOOD COUNT 3.21 MIL/MM3 (4.50-5.90); RED CELL DISTRIBUTION WIDTH 17.5 % (11.6-17.2); WHITE BLOOD COUNT 23.4 TH/MM3 (4.0-11.0)
[2016-12-12 10:05] LABS: HEMO FLAGS AUTO DIFF
[2016-12-12 10:25] LABS: APTT (PATIENT) 95.5 SEC (24.3-30.1)
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
[2016-12-12] MEDS ORDERED: HYDROmorphone HCL PF 2 MG/ML VIAL IV ONE (10:45)
[2016-12-12 11:01] LABS: BANDS 10 % (0-6); NEUTROPHIL # MANUAL DIFF 22.9 TH/MM3 (1.8-7.7); PLATELET ESTIMATE SMEAR NORMAL (NORMAL); PLATELET MORPHOLOGY NORMAL (NORMAL); POLYS (SEG NEUTROPHILS) 88 % (16-70); SCAN/DIFF FINAL DIFF MANUAL; WBC DIFF SAMPLE 100
[2016-12-12 11:02] LABS: TOXIC VACUOLATION PRESENT (NONE SEEN)
[2016-12-12] MEDS: HYDROMORPHONE IV SCH (11:16)
[2016-12-12] MEDS: SODIUM CHLORIDE 0.9% IV SCH (11:16)
[2016-12-12] MEDS: LEVOFLOXACIN 750 MG TAB PO SCH (18:13)
[2016-12-12] MEDS: ANTI-INHIBITOR COAGULANT COMPLEX 100 UNIT INJ IV SCH (22:41)
[2016-12-13] VITALS: BP 105/59; PULSE 91; RESP 17; TEMP 97.3; O2SAT 98
[2016-12-13] MEDS: ALPRAZolam 0.5 MG TAB PO SCH ×3 (01:32→18:21)
[2016-12-13] MEDS: [UNRECOGNIZED DRUG - OTHER] IV SCH ×3 (01:32→18:23)
[2016-12-13 04:00] VITALS: BP 122/61; PULSE 91; RESP 18; TEMP 96.7; O2SAT 97
[2016-12-13] MEDS: HYDROMORPHONE IV SCH ×2 (04:06→22:28)
[2016-12-13] MEDS: SODIUM CHLORIDE 0.9% IV SCH ×2 (04:06→22:28)
[2016-12-13] MEDS: ANTI-INHIBITOR COAGULANT COMPLEX 100 UNIT INJ IV SCH ×3 (05:00→22:00)
[2016-12-13] MEDS: AMINOCAPROIC ACID 500 MG TAB PO SCH ×3 (06:00→18:25)
[2016-12-13] MEDS: PCA - TOTAL MG DILAUDID DELIVERED PER SHIFT SCH ×3 (06:00→22:00)
[2016-12-13 07:35] LABS: ALKALINE PHOSPHATASE 226 U/L (45-117); TOTAL BILIRUBIN ADULT 2.6 MG/DL (0.2-1.0)
[2016-12-13 07:36] LABS: ALT (GPT) 56 U/L (12-78); ANION GAP 6 MEQ/L (5-15); AST (GOT) 37 U/L (15-37); BICARBONATE 29.9 MEQ/L (21.0-32.0); BLOOD UREA NITROGEN 9 MG/DL (7-18); CHLORIDE 104 MEQ/L (98-107); GLOMERULAR FILTRATION RATE 396 ML/MIN (>89); POTASSIUM 3.7 MEQ/L (3.5-5.1); SODIUM (NA) 140 MEQ/L (136-145)
[2016-12-13] MEDS: VANCOMYCIN INJ 1,000 MG in SODIUM CHLOR 0.9% 250 ML INJ 250 ML IV SCH ×2 (08:55→20:43)
[2016-12-13 09:00] VITALS: BP 94/55; PULSE 85; RESP 18; TEMP 96.6; O2SAT 97
[2016-12-13] MEDS: MORPHINE SULFATE 60 MG CONTROLLED RELEASE TAB PO SCH ×2 (09:02→20:43)
[2016-12-13] MEDS ORDERED: REMOVE OLD PATCH T-DERMAL SCH (09:30)
[2016-12-13] MEDS ORDERED: NICOTINE 21 MG/24 HR PATCH T-DERMAL SCH (10:00)
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
[2016-12-13 12:00] VITALS: BP 105/61; PULSE 91; RESP 16; TEMP 96.8; O2SAT 97
[2016-12-13 13:18] LABS: AUTOMATED NEUTROPHIL # 11.8 TH/MM3 (1.8-7.7); BASOPHIL # 0.1 TH/MM3 (0-0.2); BASOPHIL % 0.5 % (0.0-2.0); EOSINOPHIL # 0.3 TH/MM3 (0-0.4); EOSINOPHIL % 1.8 % (0.0-4.0); HEMATOCRIT 24.6 % (39.0-51.0); LYMPH % 11.2 % (9.0-44.0); LYMPHOCYTE # 1.6 TH/MM3 (1.0-4.8); MEAN CELL VOLUME 79.9 FL (80.0-100.0); MEAN CORPUSCULAR HEMOGLOBIN 26.4 PG (27.0-34.0); NEUT % 80.5 % (16.0-70.0); PLATELET COUNT 212 TH/MM3 (150-450); RED BLOOD COUNT 3.07 MIL/MM3 (4.50-5.90); RED CELL DISTRIBUTION WIDTH 17.5 % (11.6-17.2); WHITE BLOOD COUNT 14.6 TH/MM3 (4.0-11.0)
[2016-12-13 13:20] LABS: HEMO FLAGS AUTO DIFF
[2016-12-13 13:40] LABS: APTT (PATIENT) 68.5 SEC (24.3-30.1)
[2016-12-13 14:07] LABS: BANDS 10 % (0-6); NEUTROPHIL # MANUAL DIFF 12.6 TH/MM3 (1.8-7.7); POLYS (SEG NEUTROPHILS) 76 % (16-70); WBC DIFF SAMPLE 100
[2016-12-13 14:08] LABS: PLATELET ESTIMATE SMEAR NORMAL (NORMAL); PLATELET MORPHOLOGY NORMAL (NORMAL); SCAN/DIFF FINAL DIFF MANUAL; TOXIC VACUOLATION PRESENT (NONE SEEN)
[2016-12-13 14:10] LABS: OVALOCYTES 1+ (NORMAL)
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
[2016-12-13 16:00] VITALS: BP 101/62; PULSE 86; RESP 18; TEMP 96.6; O2SAT 97
--- NOTE | 2016-12-13 17:14 | PD.CONS ---
History of Present Illness Service Infectious disease Consult Requested By Dr Jean Green Reason for Consult Evaluate patient with hemophilia, has gram-negative twan in his blood culture Primary Care Physician Unknown Diagnoses: History of Present Illness Patient seen and examined. Records reviewed. Patient is a 26-year-old male, with known hemophilia, has been on treatment for years, has had multiple admissions to the hospital since August for spontaneous bleed and pain. His last hospitalization was in October. This time he started having problem with pain in his left knee, and left elbow which progressively worsened over the last 2 days. He could not even move his joints because of the pain. He also had some nausea and vomiting and also had some fevers. She denies any respiratory complaints or any urinary complaint. On presentation he had a fever of 102. He has evidence of effusion in the left knee, in the left elbow, as well as a hematoma seen in the left gluteus muscle. One out of the 2 blood cultures are now reported growing gram-negative twan. This is a blood culture that was drawn from the port, and the one from peripheral stick is negative so far. His chest x-ray had some atelectasis but no consolidation. Patient continues to have significant pain in his left elbow , left knee and left buttock. His temperatures are better. According to the patient his port was placed about a year ago. This was done in [place]. He recently moved to this area about 6 months ago. Patient gets IV treatment for his hemophilia, and he access his port, give his medications, and remove the needle access. He had previous history of port infection which was more than 5 years ago, and required removal of the port. After that his had multiple PICC line can place, and as I mentioned he recently had this no port put in about a year ago. Infectious disease consultation has been requested to evaluate the patient. Review of Systems Constitutional: COMPLAINS OF: Fever, Chills Eyes: DENIES: Eye pain Ears, nose, mouth, throat: DENIES: Nasal discharge, Oral lesions, Throat pain, Ear Pain, Sinus Pain Respiratory: DENIES: Cough, Sputum production, Shortness of breath Cardiovascular: DENIES: Chest pain, Palpitations, Syncope Gastrointestinal: COMPLAINS OF: Nausea, Vomiting, DENIES: Abdominal pain, Diarrhea, Difficulty Swallowing Genitourinary: DENIES: Hematuria, Dysuria Musculoskeletal: COMPLAINS OF: Joint pain, Muscle aches, Joint Swelling Integumentary: DENIES: Rash Neurologic: DENIES: Headache, Localized weakness Psychiatric: DENIES: Confusion, Hallucinations Past Family Social History Allergies: Coded Allergies: Nonsteroidal Anti-Inflammatory Agts (Verified Adverse Reaction, Severe, bleeding, 11/18/16) Past Medical History Severe hemophilia a Chronic pain Anxiety disorder Problem with recurrent hemarthrosis Previous port infection, and removal Past Surgical History Gjmzvy-[id number]-[id number] placement x 2, last one place about 1 year ago History compartment syndrome History of ORIF of left femoral neck fracture History of left knee surgery for infected knee Active Ordered Medications Xanax Amicar Feiba NF Inj Benadryl Dilaudid Levaquin Oramorph Nicotine IV vancomycin Social History Smokes one pack per day or so of cigarettes Denies alcohol abuse Denies illicit drug use Physical Exam Vital Signs Vital Signs Date Time Temp Pulse Resp B/P Pulse Ox O2 Delivery O2 Flow Rate FiO2 12/13/16 14:00 16 12/13/16 12:00 96.8 91 16 105/61 97 12/13/16 09:00 96.6 85 18 94/55 97 12/13/16 06:00 20 12/13/16 04:36 20 12/13/16 04:06 20 12/13/16 04:00 96.7 91 18 122/61 97 12/13/16 00:00 97.3 91 17 105/59 98 12/12/16 22:00 20 12/12/16 20:00 96.2 99 18 95/61 96 Physical Exam GENERAL: Patient is a well-nourished, well-developed male, , awake and alert, not in respiratory distress. SKIN: Warm and dry. Has papular rash on low chest and upper abdomen. Has ecchymoses in his lateral left thigh. HEAD: Atraumatic. Normocephalic. No temporal wasting, or tenderness. EYES: [place]mondson conjunctiva. No petechia or hemorrhage. Pupils equal, round and reactive to light. Extraocular movements full and intact. No scleral icterus. No injection or drainage. EARS, NOSE AND THROAT: Nose without bleeding or purulent nasal discharge. No sinus tenderness. Mucous membranes pink and moist. No oral lesions noted. No exudate. No oral thrush. NECK: Trachea midline. Supple and not tender, no meningeal signs CARDIOVASCULAR: Regular rate and rhythm. No murmurs, rubs or gallops heard RESPIRATORY: Clear to auscultation. Breath sounds equal bilaterally. No rales , wheezing or rhonchi ABDOMEN: Soft, non-tender, nondistended. Bowel sounds present and normoactive. No guarding. No rebound. No organomegaly. EXTREMITIES: No clubbing, cyanosis, or edema. His L elbow has evidence of effusion, and has very limited ROM due to the pain. His L knee has effusion and severe pain with any ROM. No calf tenderness. Well perfused and warm. BACK: Pain on palpation of his L buttocks NEUROLOGICAL: Awake and alert. Cranial nerves grossly intact. Motor grossly within normal limits. PSYCHIATRIC: Normal affect, calm and cooperative. LINE: No evidence of infection on the port which is on his L upper chest Laboratory Laboratory Tests Test 12/13/16 12/13/16 06:50 12:30 Sodium Level 140 Potassium Level 3.7 Chloride Level 104 Carbon Dioxide Level 29.9 Anion Gap 6 Blood Urea Nitrogen 9 Creatinine 0.28 Estimat Glomerular Filtration 396 Rate Random Glucose 106 Calcium Level 9.1 Total Bilirubin 2.6 Aspartate Amino Transf 37 (AST/SGOT) Alanine Aminotransferase 56 (ALT/SGPT) Alkaline Phosphatase 226 Total Protein 6.1 Albumin 2.1 White Blood Count 14.6 Red Blood Count 3.07 Hemoglobin 8.1 Hematocrit 24.6 Mean Corpuscular Volume 79.9 Mean Corpuscular Hemoglobin 26.4 Mean Corpuscular Hemoglobin 33.0 Concent Red Cell Distribution Width 17.5 Platelet Count 212 Mean Platelet Volume 8.7 Neutrophils (%) (Auto) 80.5 Lymphocytes (%) (Auto) 11.2 Monocytes (%) (Auto) 6.0 Eosinophils (%) (Auto) 1.8 Basophils (%) (Auto) 0.5 Neutrophils # (Auto) 11.8 Lymphocytes # (Auto) 1.6 Monocytes # (Auto) 0.9 Eosinophils # (Auto) 0.3 Basophils # (Auto) 0.1 CBC Comment AUTO DIFF Differential Total Cells 100 Counted Neutrophils % (Manual) 76 Band Neutrophils % 10 Lymphocytes % 8 Monocytes % 6 Neutrophils # (Manual) 12.6 Differential Comment FINAL DIFF MANUAL Toxic Vacuolation PRESENT Platelet Estimate NORMAL Platelet Morphology Comment NORMAL Ovalocytes 1+ Activated Partial 68.5 Thromboplast Time Date/Time Procedure Status Source Growth 12/13/16 16:32 Aerobic Blood Culture Received Blood Other Pending 12/13/16 16:32 Anaerobic Blood Culture Received Blood Other Pending 12/12/16 06:33 Aerobic Blood Culture - Preliminary Resulted Blood Other Gram Negative Twan 12/12/16 06:33 Anaerobic Blood Culture - Preliminary Resulted Blood Other NO GROWTH IN 1 DAY 12/11/16 12:20 Urine Culture - Final Complete Urine Clean Catch NO GROWTH IN 48 HOURS. Result Diagram: 12/13/16 1230 12/13/16 0650 Imaging RADIOLOGY STUDIES/FILMS REVIEWED Chest X-Ray 12/11/16 0000 Signed Impressions: Service Date/Time: November 09:04 - CONCLUSION: A faint consolidation within the lingula likely atelectasis with a poor inspiratory effort. Right sided [id number]-q-[id number] catheter in excellent position. Garrett Altman MD Upper Extremity CT 12/10/16 0000 Signed Impressions: Service Date/Time: Saturday, December 10, 2016 19:14 - CONCLUSION: 1. Joint effusion. There is no evidence of acute fracture. Scot Flores MD Lower Extremity CT 12/10/16 0000 Signed Impressions: Service Date/Time: Saturday, December 10, 2016 19:04 - CONCLUSION: 1. 7.2 x 4.2 symmetr hematoma in left leads mediastinal Scot Flores MD Abdomen/Pelvis CT 12/10/16 0000 Signed Impressions: Service Date/Time: Saturday, December 10, 2016 18:59 - CONCLUSION: 1. No evidence of acute abdominal or pelvic process. No masses are identified. Scot Flores MD Assessment and Plan Assessment and Plan IMPRESSION Sepsis on presentation and now with GNR in his BC - concerns would be septic joints - he has effusions in hie L elbow, and L knee, and also has L buttock hematoma - other concern is his port, which gets accessed daily by patient for his IV Rx of hemophilia Hemophilia with recurrent spontaneous hemarthrosis, and other bleeding Chronic pain, and chronic narcotic use RECOMMENDATION Agree with repeat BC Add Cefepime for additional GNR coverage Will D/C heme regarding possibly tapping L elbow and L knee for diagnosis if his hemarthrosis is infected as well as the L buttock hematoma - patient does not want this done due to problems with more bleeding, but told him that we need to make diagnosis so he can get the correct Rx Continue Levaquin Stop IV vancomycin Follow C/S If repeat BC from port is (+), then removal of port will need to be discussed with patient Monitor progress I will determine course of Rx once work up is completed i will follow along with you Thank you for this consultation Discussed Condition With Explained plan to the patient Kamini Mcgrath MD December 13, 2016 17:14
[2016-12-13] MEDS: LEVOFLOXACIN 750 MG TAB PO SCH (18:21)
[2016-12-13] MEDS: CEFEPIME INJ 2,000 MG in SODIUM CHLORIDE 0.9% INJ 100 ML IV SCH (18:22)
[2016-12-13 20:00] VITALS: BP 95/53; PULSE 90; RESP 18; TEMP 97.8; O2SAT 97
[2016-12-13] MEDS: REMOVE OLD PATCH T-DERMAL SCH (21:59)
[2016-12-13 22:00] LABS: BLOOD, URINE NEG (NEG); COMMENT (UR) CULT NOT INDICATED; CULTURE IF INDICATED CULT NOT INDICATED; GLUCOSE,URINE NEG (NEG); KETONE, URINE NEG (NEG); MUCUS URINE FEW /lpf (OCC); NITRITE,URINE NEG (NEG); URINE COLOR YELLOW (YELLW/STRAW)
[2016-12-13] MEDS: NICOTINE 4 MG/GUM CHEW PRN (22:00)
[2016-12-13 22:09] LABS: AMPHETAMINE, URINE NEG (NEG); BARBITURATES, URINE NEG (NEG); COCAINE, URINE NEG (NEG)
[2016-12-14] VITALS: BP 98/56; PULSE 97; RESP 19; TEMP 99.3; O2SAT 98
[2016-12-14] MEDS: AMINOCAPROIC ACID 500 MG TAB PO SCH ×4 (00:31→17:27)
[2016-12-14] MEDS: [UNRECOGNIZED DRUG - OTHER] IV SCH ×2 (01:29→08:55)
[2016-12-14] MEDS: CEFEPIME INJ 2,000 MG in SODIUM CHLORIDE 0.9% INJ 100 ML IV SCH ×3 (01:29→17:26)
[2016-12-14] MEDS: ALPRAZolam 0.5 MG TAB PO SCH ×3 (01:29→17:26)
[2016-12-14 04:00] VITALS: BP 109/59; PULSE 91; RESP 19; TEMP 98.9; O2SAT 97
[2016-12-14] MEDS: ANTI-INHIBITOR COAGULANT COMPLEX 100 UNIT INJ IV SCH ×3 (05:25→21:09)
[2016-12-14] MEDS: NICOTINE 4 MG/GUM CHEW PRN ×4 (05:38→21:14)
[2016-12-14] MEDS: PCA - TOTAL MG DILAUDID DELIVERED PER SHIFT SCH ×3 (06:00→22:00)
[2016-12-14 08:00] VITALS: BP 102/59; PULSE 95; RESP 18; TEMP 99.1; O2SAT 95
[2016-12-14] MEDS: VANCOMYCIN INJ 1,000 MG in SODIUM CHLOR 0.9% 250 ML INJ 250 ML IV SCH (08:53)
[2016-12-14] MEDS: MORPHINE SULFATE 60 MG CONTROLLED RELEASE TAB PO SCH ×2 (08:56→21:08)
[2016-12-14 09:45] LABS: HEMATOCRIT 27.4 % (39.0-51.0); MEAN CELL VOLUME 80.4 FL (80.0-100.0); MEAN CORPUSCULAR HEMOGLOBIN 25.6 PG (27.0-34.0); MEAN CORPUSCULAR HGB CONC 31.9 % (32.0-36.0); PLATELET COUNT 227 TH/MM3 (150-450); RED BLOOD COUNT 3.41 MIL/MM3 (4.50-5.90); RED CELL DISTRIBUTION WIDTH 17.6 % (11.6-17.2); WHITE BLOOD COUNT 12.2 TH/MM3 (4.0-11.0)
[2016-12-14 09:48] LABS: HEMO FLAGS AUTO DIFF
--- NOTE | 2016-12-14 10:02 | PD.ONC.PN ---
Subjective Subjective Remarks Afebrile overnight. Patient resting comfortably. He continues to complain of pain in knee, hip and elbow. He feels his hip pain is worse. No nasal pharyngeal bleeding. States he started taking the Amicar again. Objective Data Date Time Temp Pulse Resp B/P Pulse Ox O2 Delivery O2 Flow Rate FiO2 12/14/16 08:00 99.1 95 18 102/59 95 12/14/16 06:00 18 12/14/16 04:00 98.9 91 19 109/59 97 12/14/16 00:00 99.3 97 19 98/56 98 12/13/16 22:28 17 12/13/16 22:00 17 12/13/16 20:00 97.8 90 18 95/53 97 12/13/16 16:00 96.6 86 18 101/62 97 12/13/16 14:00 16 12/13/16 12:00 96.8 91 16 105/61 97 Result Diagram: 12/14/16 0915 12/13/16 0650 Laboratory Results Laboratory Tests Test 12/13/16 12/13/16 12/14/16 12:30 21:15 09:15 White Blood Count 14.6 TH/MM3 12.2 TH/MM3 Red Blood Count 3.07 MIL/MM3 3.41 MIL/MM3 Hemoglobin 8.1 GM/DL 8.7 GM/DL Hematocrit 24.6 % 27.4 % Mean Corpuscular Volume 79.9 FL 80.4 FL Mean Corpuscular Hemoglobin 26.4 PG 25.6 PG Mean Corpuscular Hemoglobin 33.0 % 31.9 % Concent Red Cell Distribution Width 17.5 % 17.6 % Platelet Count 212 TH/MM3 227 TH/MM3 Mean Platelet Volume 8.7 FL 8.3 FL Neutrophils (%) (Auto) 80.5 % % Lymphocytes (%) (Auto) 11.2 % % Monocytes (%) (Auto) 6.0 % % Eosinophils (%) (Auto) 1.8 % % Basophils (%) (Auto) 0.5 % % Neutrophils # (Auto) 11.8 TH/MM3 TH/MM3 Lymphocytes # (Auto) 1.6 TH/MM3 TH/MM3 Monocytes # (Auto) 0.9 TH/MM3 TH/MM3 Eosinophils # (Auto) 0.3 TH/MM3 TH/MM3 Basophils # (Auto) 0.1 TH/MM3 TH/MM3 CBC Comment AUTO DIFF AUTO DIFF Differential Total Cells 100 Counted Neutrophils % (Manual) 76 % Band Neutrophils % 10 % Lymphocytes % 8 % Monocytes % 6 % Neutrophils # (Manual) 12.6 TH/MM3 Differential Comment FINAL DIFF MANUAL Toxic Vacuolation PRESENT Platelet Estimate NORMAL Platelet Morphology Comment NORMAL Ovalocytes 1+ Activated Partial 68.5 SEC Thromboplast Time Urine Color YELLOW Urine Turbidity CLEAR Urine pH 8.0 Urine Specific [place] 1.011 Urine Protein NEG mg/dL Urine Glucose (UA) NEG mg/dL Urine Ketones NEG mg/dL Urine Occult Blood NEG Urine Nitrite NEG Urine Bilirubin NEG Urine Urobilinogen 4.0 MG/DL Urine Leukocyte Esterase NEG Urine WBC LESS THAN 1 /hpf Urine Mucus FEW /lpf Microscopic Urinalysis Comment CULT NOT INDICATED Urine Opiates Screen POS Urine Barbiturates Screen NEG Urine Amphetamines Screen NEG Urine Benzodiazepines Screen POS Urine Cocaine Screen NEG Urine Cannabinoids Screen POS Culture Results Microbiology Date/Time Procedure Status Source Growth 12/11/16 11:36 Aerobic Blood Culture - Preliminary Resulted Blood Other NO GROWTH IN 2 DAYS 12/11/16 11:36 Anaerobic Blood Culture - Preliminary Resulted Blood Other NO GROWTH IN 2 DAYS 12/11/16 12:20 Urine Culture - Final Complete Urine Clean Catch NO GROWTH IN 48 HOURS. 12/12/16 06:33 Aerobic Blood Culture - Preliminary Resulted Blood Other 12/12/16 06:33 Anaerobic Blood Culture - Preliminary Resulted Blood Other NO GROWTH IN 1 DAY 12/13/16 16:30 Aerobic Blood Culture Received Blood Peripheral Pending 12/13/16 16:30 Anaerobic Blood Culture Received Blood Peripheral Pending 12/13/16 16:32 Aerobic Blood Culture Received Blood Other Pending 12/13/16 16:32 Anaerobic Blood Culture Received Blood Other Pending Administered Medications Medications (Trade) Dose Ordered Sig/Mike Route PRN Reason Start Time Stop Time Status Last Admin Dose Admin Alprazolam (Xanax) 0.5 mg Q8H PO 12/10/16 17:30 12/14/16 09:00 Morphine Sulfate (Oramorph Sr) 60 mg Q12HR PO 12/10/16 21:00 12/14/16 08:56 Aminocaproic Acid (Amicar) 2,000 mg Q6HR PO 12/10/16 18:45 12/14/16 05:39 Levofloxacin (Levaquin) 750 mg Q24H PO 12/11/16 18:00 12/13/16 18:21 Patient Own Medication PT OWN MED: FEIBA 7,500 UN... Q8H IV 12/12/16 05:00 Hold 12/12/16 13:37 Patient Own Medication PT OWN MED: PT OWN M... Q8H IV 12/12/16 01:00 12/14/16 08:55 RESEARCH TEST ENGINE OPERATOR Dosage Infused (Pha) 1 1 Q8HR .XX 12/12/16 07:30 12/14/16 06:00 Vancomycin HCl/ Sodium Chloride (Vancomycin Inj/ NS 250 ml Inj) 250 ml @ 250 mls/hr Q12H IV 12/12/16 08:00 12/14/16 08:53 Anti-Inhibitor Coagulant Complex (Feiba Nf Inj) 7,500 units Q8H IV 12/12/16 21:00 12/14/16 05:25 Miscellaneous Information 1 HS T-DERMAL 12/13/16 21:00 12/13/16 21:59 Nicotine 4 mg 4 mg UNSCH PRN CHEW NICOTINE CRAVINGS 12/13/16 13:30 12/14/16 05:38 Cefepime HCl/ Sodium Chloride (Maxipime Inj/NS Inj) 100 ml @ 200 mls/hr Q8H IV 12/13/16 18:00 12/14/16 01:29 Objective Remarks GENERAL: Young man, resting in bed, watching TV SKIN: Warm and dry. HEAD: Atraumatic. Normocephalic. EYES: Pupils equal and round. No injection or drainage. ENT: No nasal bleeding or discharge. Mucous membranes pink and moist. MOUTH: no bleeding or blood NECK: Trachea midline. CARDIOVASCULAR: Regular rate and rhythm. RESPIRATORY: clear to auscultation bilaterally. GASTROINTESTINAL: Abdomen soft, non-tender, nondistended. MUSCULOSKELETAL: chronic joint changes left knee and left elbow. ecchymoses and swelling , left hip. I don't see any significant change from yesterday. The left elbow is now in an evelina bandage wrap NEUROLOGICAL: Awake and alert. Normal speech. 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 Presents with hematoma in the left gluteal muscle group, hemarthrosis in the left knee and pain in the left elbow. Plan 1. Hemophilia A: continue FEIBA and NovoSeven, rotating every four hours.. monitor CBC, PTT 2. GNR Sepsis: ID following. patient on Cefepime and Levaquin. 3. Pain control: on hydromorphone RESEARCH TEST ENGINE OPERATOR pump. Attending Statement The exam, history, and the medical decision-making described in the above note were completed with the assistance of the mid-level provider. I reviewed and agree with the findings presented. I attest that I had a [id number] encounter with the patient on the same day, and personally performed and documented my assessment and findings in the medical record. Pt report feeling the same in areas of bleeding, muscle, L knee, L elbow. Clinically the same. c/o pain inplaces other than the acute bleed. Discussed GM- siomara and concern to require port removal. Recommend Obizur single dose prophylaxis if becomes necessary, concern about bleeding even with small procedure. Extra care with local control of bleeding. Pending ID recommendation. Discussed risk of endocarditis but recreational drug use through port. Pt denies any recreational drugs. Urine tox positive for cannabinoids. Nallely Brand December 14, 2016 10:01 Radha Chen MD December 14, 2016 14:59
[2016-12-14 10:08] LABS: PROTHROMBIN TIME - PATIENT 10.9 SEC (9.8-11.6)
[2016-12-14 10:12] LABS: ALKALINE PHOSPHATASE 165 U/L (45-117); ALT (GPT) 50 U/L (12-78); ANION GAP 7 MEQ/L (5-15); AST (GOT) 23 U/L (15-37); BICARBONATE 29.7 MEQ/L (21.0-32.0); BLOOD UREA NITROGEN 5 MG/DL (7-18); CHLORIDE 100 MEQ/L (98-107); GLOMERULAR FILTRATION RATE 278 ML/MIN (>89); POTASSIUM 3.9 MEQ/L (3.5-5.1); SODIUM (NA) 137 MEQ/L (136-145); TOTAL BILIRUBIN ADULT 2.2 MG/DL (0.2-1.0)
[2016-12-14 10:59] LABS: BANDS 10 % (0-6); EOSINOPHILS 3 % (0-4); NEUTROPHIL # MANUAL DIFF 10.1 TH/MM3 (1.8-7.7); POLYS (SEG NEUTROPHILS) 73 % (16-70); WBC DIFF SAMPLE 100
[2016-12-14 11:01] LABS: PLATELET ESTIMATE SMEAR NORMAL (NORMAL); PLATELET MORPHOLOGY NORMAL (NORMAL); SCAN/DIFF FINAL DIFF MANUAL; TEARDROP RBCS 1+ (NORMAL)
[2016-12-14 12:00] VITALS: BP 103/57; PULSE 89; RESP 18; TEMP 99.2; O2SAT 95
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
[2016-12-14 16:00] VITALS: BP 105/55; PULSE 89; RESP 16; TEMP 98.8; O2SAT 95
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
[2016-12-14] MEDS: LEVOFLOXACIN 750 MG TAB PO SCH (17:27)
[2016-12-14] MEDS: HYDROMORPHONE IV SCH (17:37)
[2016-12-14] MEDS: SODIUM CHLORIDE 0.9% IV SCH (17:37)
[2016-12-14] MEDS: FACTOR VIIA (RECOMB) 5 MG VIAL IV PUSH SCH (17:38)
[2016-12-14 20:00] VITALS: BP 102/59; PULSE 91; RESP 18; TEMP 98.5; O2SAT 96
[2016-12-14] MEDS: REMOVE OLD PATCH T-DERMAL SCH (21:00)
[2016-12-15] VITALS: BP 112/63; PULSE 92; RESP 17; TEMP 99.2; O2SAT 98
[2016-12-15] MEDS: AMINOCAPROIC ACID 500 MG TAB PO SCH ×5 (01:00→23:44)
[2016-12-15] MEDS: ALPRAZolam 0.5 MG TAB PO SCH ×3 (01:01→17:56)
[2016-12-15] MEDS: FACTOR VIIA (RECOMB) 5 MG VIAL IV PUSH SCH ×3 (01:02→17:58)
[2016-12-15] MEDS: NICOTINE 4 MG/GUM CHEW PRN ×5 (01:08→23:52)
[2016-12-15] MEDS: CEFEPIME INJ 2,000 MG in SODIUM CHLORIDE 0.9% INJ 100 ML IV SCH ×3 (02:20→17:57)
[2016-12-15 04:00] VITALS: BP 100/53; PULSE 90; RESP 18; TEMP 98.2; O2SAT 97
[2016-12-15] MEDS: ANTI-INHIBITOR COAGULANT COMPLEX 100 UNIT INJ IV SCH ×3 (04:56→20:57)
[2016-12-15] MEDS: PCA - TOTAL MG DILAUDID DELIVERED PER SHIFT SCH ×3 (05:48→22:00)
[2016-12-15 05:50] LABS: AUTOMATED NEUTROPHIL # 8.3 TH/MM3 (1.8-7.7); BASOPHIL # 0.1 TH/MM3 (0-0.2); BASOPHIL % 0.6 % (0.0-2.0); EOSINOPHIL # 0.5 TH/MM3 (0-0.4); EOSINOPHIL % 4.1 % (0.0-4.0); HEMATOCRIT 28.6 % (39.0-51.0); LYMPH % 13.7 % (9.0-44.0); LYMPHOCYTE # 1.5 TH/MM3 (1.0-4.8); MEAN CELL VOLUME 80.4 FL (80.0-100.0); MEAN CORPUSCULAR HEMOGLOBIN 25.5 PG (27.0-34.0); MEAN CORPUSCULAR HGB CONC 31.7 % (32.0-36.0); MONO % 7.6 % (0.0-8.0); PLATELET COUNT 241 TH/MM3 (150-450); RED BLOOD COUNT 3.55 MIL/MM3 (4.50-5.90); RED CELL DISTRIBUTION WIDTH 17.7 % (11.6-17.2); WHITE BLOOD COUNT 11.2 TH/MM3 (4.0-11.0)
[2016-12-15 05:52] LABS: HEMO FLAGS AUTO DIFF
[2016-12-15 06:10] LABS: APTT (PATIENT) 64.6 SEC (24.3-30.1); INTERNATIONAL NORMALIZED RATIO 0.9 RATIO; PROTHROMBIN TIME - PATIENT 10.4 SEC (9.8-11.6)
[2016-12-15 06:40] LABS: BANDS 14 % (0-6); EOSINOPHILS 3 % (0-4); METAMYELOCYTES 1 % (0-1); NEUTROPHIL # MANUAL DIFF 9.2 TH/MM3 (1.8-7.7); PLATELET ESTIMATE SMEAR NORMAL (NORMAL); PLATELET MORPHOLOGY NORMAL (NORMAL); POLYS (SEG NEUTROPHILS) 67 % (16-70); SCAN/DIFF FINAL DIFF MANUAL; WBC DIFF SAMPLE 100
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
[2016-12-15 08:00] VITALS: BP 105/62; PULSE 97; RESP 17; TEMP 99; O2SAT 95
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
[2016-12-15] MEDS: MORPHINE SULFATE 60 MG CONTROLLED RELEASE TAB PO SCH ×2 (08:45→20:56)
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
[2016-12-15 12:00] VITALS: BP 95/62; PULSE 87; RESP 17; TEMP 97.9; O2SAT 96
[2016-12-15] MEDS: HYDROMORPHONE IV SCH (13:59)
[2016-12-15] MEDS: SODIUM CHLORIDE 0.9% IV SCH (13:59)
[2016-12-15 16:00] VITALS: BP 106/61; PULSE 92; RESP 17; TEMP 98.1; O2SAT 97
--- NOTE | 2016-12-15 17:19 | EC ---
Study Study Date:12/15/2016 STUDY CONCLUSIONS SUMMARY - Left ventricle: The cavity size was normal. Wall thickness was normal. Systolic function was normal. The estimated ejection fraction was in the range of 55% to 60%. Wall motion was normal; there were no regional wall motion abnormalities. - Aortic valve: Valve area: 2.72cm^2(VTI). Valve area: 2.95cm^2 (Vmax). - Atrial septum: A patent foramen ovale cannot be excluded. - Pulmonary arteries: PA peak pressure: 31mm Hg (S). If LV function is below 40, please consider prescribing an ACEI or ARB or document rationale for non-use. PROCEDURE DATA STUDY STATUS: Elective. Procedure: Transthoracic echocardiography. Image quality was good. Scanning was performed from the parasternal, apical, and subcostal acoustic windows. Study completion: The patient tolerated the procedure well. Transthoracic echocardiography. M-mode, complete 2D, complete spectral Doppler, and color Doppler. Height: Height: 70in. Patient status: Inpatient. CARDIAC ANATOMY LEFT VENTRICLE: The cavity size was normal. Wall thickness was normal. Systolic function was normal. The estimated ejection fraction was in the range of 55% to 60%. Wall motion was normal; there were no regional wall motion abnormalities. AORTIC VALVE: Trileaflet; normal thickness leaflets. Doppler: Transvalvular velocity was within the normal range. There was no stenosis. No regurgitation. Valve area: 2.72cm^2(VTI). Valve area: 2.95cm^2 (Vmax). Mean gradient: 2mm Hg (S). AORTA: Aortic root: The aortic root was normal in size. MITRAL VALVE: Structurally normal valve. Doppler: Transvalvular velocity was within the normal range. There was no evidence for stenosis. Trace to mild regurgitation. LEFT ATRIUM: The atrium was normal in size. ATRIAL SEPTUM: A patent foramen ovale cannot be excluded. RIGHT VENTRICLE: The cavity size was normal. Wall thickness was normal. PULMONIC VALVE: Doppler: Transvalvular velocity was within the normal range. There was no evidence for stenosis. No regurgitation. TRICUSPID VALVE: Structurally normal valve. Doppler: Transvalvular velocity was within the normal range. Trace to mild regurgitation. PULMONARY ARTERY: The main pulmonary artery was normal-sized. Systolic pressure was within the normal range. RIGHT ATRIUM: The atrium was normal in size. PERICARDIUM: There was no pericardial effusion. SYSTEMIC VEINS: Inferior vena cava: The vessel was normal in size. BASIC MEASUREMENTS ADULT NORMAL Left ventricle LV internal dimension, ED, chordal level, 50.1 mm 43-52 PLAX LV internal dimension, ES, chordal level, *38.5 mm 23-38 PLAX Fractional shortening, chordal level, PLAX *23 % >29 LV posterior wall thickness, ED 8.48 mm IVS/LVPW ratio, ED 1 <1.3 Ventricular septum Septal thickness, ED 8.51 mm Aortic valve Leaflet separation 26 mm 15-26 Aorta Root diameter, ED 31 mm Left atrium Anterior-posterior dimension 20 mm BASIC MEASUREMENTS ADULT NORMAL Aortic valve Leaflet separation 26 mm 15-26 DOPPLER MEASUREMENTS ADULT NORMAL Main pulmonary artery Pressure, S *31 mm Hg =30 Aortic valve Peak velocity, S 108 cm/s Mean velocity, S 71.6 cm/s VTI, S 20.6 cm Mean gradient, S 2 mm Hg Valve area, VTI 2.72 cm^2 Valve area, Vmax 2.95 cm^2 Mitral valve Peak E-wave velocity 70.1 cm/s Peak A-wave velocity 58.7 cm/s Deceleration time 151 ms 150-230 Peak E/A ratio 1.2 Tricuspid valve Regurgitant peak velocity 215 cm/s Peak RV-RA gradient, S 18 mm Hg Maximal regurgitant velocity 215 cm/s Systemic veins Estimated CVP 10 mm Hg Right ventricle RV pressure, S *32 mm Hg <30 Pulmonic valve Peak velocity, S 56.4 cm/s LEGEND: Mean values are shown as u=mean value. Asterisk (*) rice values outside specified normal range. Prepared and signed by Garrett Plascencia [id number]
[2016-12-15] MEDS: LEVOFLOXACIN 750 MG TAB PO SCH (17:56)
[2016-12-15 20:00] VITALS: BP 99/57; PULSE 105; RESP 16; TEMP 100.5; O2SAT 96
[2016-12-15] MEDS: REMOVE OLD PATCH T-DERMAL SCH (20:57)
--- NOTE | 2016-12-15 21:36 | RADRPT ---
EXAM DATE/TIME: 12/15/2016 19:08 [place] COMPARISON: No previous studies available for comparison. INDICATIONS : Right arm swelling and pain. MEDICAL HISTORY : Ulcers. Arthritis. Hemophilia. Anxiety. Chemotherapy. SURGICAL HISTORY : Left femur plate. Right knee radioactive synovectomy. Port placement. ENCOUNTER: Initial ACUITY: 1 day PAIN SCORE: 6/10 LOCATION: Right arm. FINDINGS: There is spontaneous flow documented in the brachial, basilic, axillary, and subclavian veins. There is occlusive and nonocclusive thrombus in the right cephalic vein. The vessels are compressible and a ugmentation response is documented. No filling defects are seen. The flow is phasic with respiratio n. Direction of flow in the jugular vein is caudal. CONCLUSION: 1. Negative for deep venous thrombosis. Occlusive and nonocclusive thrombus in the right cephalic vei n. Alejandro Neri MD on December 15, 2016 at 21:34 Board Certified Radiologist. This report was verified electronically.
[2016-12-16] VITALS: BP 100/59; PULSE 101; RESP 16; TEMP 100.1; O2SAT 96
[2016-12-16] MEDS: ALPRAZolam 0.5 MG TAB PO SCH ×3 (01:48→17:23)
[2016-12-16] MEDS: CEFEPIME INJ 2,000 MG in SODIUM CHLORIDE 0.9% INJ 100 ML IV SCH ×3 (01:49→17:23)
[2016-12-16] MEDS: FACTOR VIIA (RECOMB) 5 MG VIAL IV PUSH SCH ×3 (01:49→17:24)
[2016-12-16 04:00] VITALS: BP 101/58; PULSE 94; RESP 16; TEMP 99; O2SAT 95
[2016-12-16] MEDS: NICOTINE 4 MG/GUM CHEW PRN ×5 (04:35→21:51)
[2016-12-16] MEDS: ANTI-INHIBITOR COAGULANT COMPLEX 100 UNIT INJ IV SCH ×3 (04:56→21:41)
[2016-12-16] MEDS: AMINOCAPROIC ACID 500 MG TAB PO SCH ×3 (04:59→17:24)
[2016-12-16] MEDS: PCA - TOTAL MG DILAUDID DELIVERED PER SHIFT SCH ×2 (05:32→22:00)
[2016-12-16 08:00] VITALS: BP 96/60; PULSE 87; RESP 20; TEMP 99; O2SAT 95
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
[2016-12-16] MEDS: MORPHINE SULFATE 60 MG CONTROLLED RELEASE TAB PO SCH ×2 (09:24→21:51)
[2016-12-16] MEDS: HYDROMORPHONE IV SCH (10:08)
[2016-12-16] MEDS: SODIUM CHLORIDE 0.9% IV SCH (10:08)
--- NOTE | 2016-12-16 10:30 | HHI.IDPN ---
Subjective Subjective Remarks Notes reviewed Pain is the same Had some low grade temps last night No ID yet on GNR No new (+) BC - last BC from 12/15 Echo ok Doppler no thrombus where port is Antibiotics Cefepime Levaquin Lines Port Past Medical History Severe hemophilia a Chronic pain Anxiety disorder Problem with recurrent hemarthrosis Previous port infection, and removal Past Surgical History Focytj-k-Myqu placement x 2, last one place about 1 year ago History compartment syndrome History of ORIF of left femoral neck fracture History of left knee surgery for infected knee Allergies: Coded Allergies: Nonsteroidal Anti-Inflammatory Agts (Verified Adverse Reaction, Severe, bleeding, 11/18/16) Objective . Vital Signs Date Time Temp Pulse Resp B/P Pulse Ox O2 Delivery O2 Flow Rate FiO2 12/16/16 10:08 18 12/16/16 08:00 99.0 87 20 96/60 95 12/16/16 05:32 16 12/16/16 04:00 99.0 94 16 101/58 95 12/16/16 00:00 100.1 101 16 100/59 96 12/15/16 22:00 18 12/15/16 20:00 100.5 105 16 99/57 96 12/15/16 16:00 98.1 92 17 106/61 97 12/15/16 13:59 18 12/15/16 13:59 18 12/15/16 12:00 97.9 87 17 95/62 96 12/15/16 12/15/16 12/16/16 14:59 22:59 06:59 Intake Total 720 ml 720 ml 600 ml Output Total 1300 ml 750 ml 1500 ml Balance -580 ml -30 ml -900 ml Intake Oral 720 ml 720 ml 600 ml Output Urine Total 1300 ml 750 ml 1500 ml # Bowel Movements 0 . Laboratory Tests Test 12/15/16 05:00 White Blood Count 11.2 TH/MM3 Red Blood Count 3.55 MIL/MM3 Hemoglobin 9.1 GM/DL Hematocrit 28.6 % Mean Corpuscular Volume 80.4 FL Mean Corpuscular Hemoglobin 25.5 PG Mean Corpuscular Hemoglobin 31.7 % Concent Red Cell Distribution Width 17.7 % Platelet Count 241 TH/MM3 Mean Platelet Volume 8.3 FL Neutrophils (%) (Auto) 74.0 % Lymphocytes (%) (Auto) 13.7 % Monocytes (%) (Auto) 7.6 % Eosinophils (%) (Auto) 4.1 % Basophils (%) (Auto) 0.6 % Neutrophils # (Auto) 8.3 TH/MM3 Lymphocytes # (Auto) 1.5 TH/MM3 Monocytes # (Auto) 0.8 TH/MM3 Eosinophils # (Auto) 0.5 TH/MM3 Basophils # (Auto) 0.1 TH/MM3 CBC Comment AUTO DIFF Differential Total Cells 100 Counted Neutrophils % (Manual) 67 % Band Neutrophils % 14 % Lymphocytes % 12 % Monocytes % 3 % Eosinophils % 3 % Neutrophils # (Manual) 9.2 TH/MM3 Metamyelocytes 1 % Differential Comment FINAL DIFF MANUAL Platelet Estimate NORMAL Platelet Morphology Comment NORMAL Laboratory Tests Test 12/15/16 12:42 C-Reactive Protein 7.51 MG/DL Microbiology Date/Time Procedure Status Source Growth 12/13/16 16:30 Aerobic Blood Culture - Preliminary Resulted Blood Peripheral NO GROWTH IN 2 DAYS 12/13/16 16:30 Anaerobic Blood Culture - Preliminary Resulted Blood Peripheral NO GROWTH IN 2 DAYS 12/13/16 16:32 Aerobic Blood Culture - Preliminary Resulted Blood Other Gram Negative Twan 12/13/16 16:32 Anaerobic Blood Culture - Preliminary Resulted Gram Negative Twan 12/15/16 12:42 Aerobic Blood Culture Received Blood Peripheral Pending 12/15/16 12:42 Anaerobic Blood Culture Received Blood Peripheral Pending 12/15/16 23:55 Aerobic Blood Culture Received Blood Other Pending 12/15/16 23:55 Anaerobic Blood Culture Received Blood Other Pending Imaging Last Impressions Chest X-Ray 12/11/16 0000 Signed Impressions: Service Date/Time: November 09:04 - CONCLUSION: A faint consolidation within the lingula likely atelectasis with a poor inspiratory effort. Right sided Hnyeji-h-Hpye catheter in excellent position. Garrett Altman MD Upper Extremity CT 12/10/16 0000 Signed Impressions: Service Date/Time: Saturday, December 10, 2016 19:14 - CONCLUSION: 1. Joint effusion. There is no evidence of acute fracture. Scot Flores MD Lower Extremity CT 12/10/16 0000 Signed Impressions: Service Date/Time: Saturday, December 10, 2016 19:04 - CONCLUSION: 1. 7.2 x 4.2 symmetr hematoma in left leads mediastinal Scot Flores MD Abdomen/Pelvis CT 12/10/16 0000 Signed Impressions: Service Date/Time: Saturday, December 10, 2016 18:59 - CONCLUSION: 1. No evidence of acute abdominal or pelvic process. No masses are identified. Scot Flores MD Physical Exam GENERAL: awake and alert, not in respiratory distress. SKIN: Warm and dry. Has papular rash on low chest and upper abdomen. Has ecchymoses in his lateral left thigh. HEAD: Atraumatic. Normocephalic. No temporal wasting, or tenderness. EYES: [place] conjunctiva. No petechia or hemorrhage. No scleral icterus. No injection or drainage. EARS, NOSE AND THROAT: Nose without bleeding or purulent nasal discharge. No sinus tenderness. Mucous membranes pink and moist. No oral lesions noted. No exudate. No oral thrush. NECK: Trachea midline. Supple and not tender, no meningeal signs CARDIOVASCULAR: Regular rate and rhythm. No murmurs, rubs or gallops heard RESPIRATORY: Clear to auscultation. Breath sounds equal bilaterally. No rales , wheezing or rhonchi ABDOMEN: Soft, non-tender, nondistended. Bowel sounds present and normoactive. No guarding. No rebound. No organomegaly. EXTREMITIES: No clubbing, cyanosis, or edema. His L elbow has evidence of effusion, and has very limited ROM due to the pain. His L knee has effusion and severe pain with any ROM. No calf tenderness. Well perfused and warm. BACK: Pain on palpation of his L buttocks NEUROLOGICAL: Awake and alert. Cranial nerves grossly intact. Motor grossly within normal limits. PSYCHIATRIC: Normal affect, calm and cooperative. LINE: No evidence of infection on the port which is on his L upper chest Assessment & Plan Remarks IMPRESSION Sepsis on presentation and now with GNR in his BC, has new one and both set from his port - likely port infection - concerns would be septic joints - he has effusions in hie L elbow, and L knee, and also has L buttock hematoma; could be seeded Hemophilia with recurrent spontaneous hemarthrosis, and other bleeding Chronic pain, and chronic narcotic use Fevers RECOMMENDATION Continue cefepime Continue Levaquin Follow C/S Follow temps - had fevers last night; ?med effect Monitor progress Will determine course of Abx once C/S finalized Kamini Mcgrath MD December 16, 2016 10:30
[2016-12-16 12:00] VITALS: BP 90/57; PULSE 86; RESP 20; TEMP 99.4; O2SAT 95
[2016-12-16] MEDS: SILVER SULFADIAZINE 1% CR 50 GM JAR TOPICAL SCH ×2 (12:52→21:51)
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
[2016-12-16 16:00] VITALS: BP 101/58; PULSE 91; RESP 20; TEMP 98.7; O2SAT 95
[2016-12-16] MEDS: LEVOFLOXACIN 750 MG TAB PO SCH (17:23)
[2016-12-16 21:15] VITALS: BP 109/60; PULSE 100; RESP 16; TEMP 98.4; O2SAT 98
[2016-12-16] MEDS: SODIUM CHLORIDE 0.9% FLUSH 10 ML FLUSH IVF PRN (21:43)
[2016-12-16] MEDS: REMOVE OLD PATCH T-DERMAL SCH (22:02)
[2016-12-17] MEDS: NICOTINE 4 MG/GUM CHEW PRN ×5 (00:09→17:47)
[2016-12-17] MEDS: AMINOCAPROIC ACID 500 MG TAB PO SCH ×4 (00:09→17:47)
[2016-12-17] MEDS: FACTOR VIIA (RECOMB) 5 MG VIAL IV PUSH SCH (00:47)
[2016-12-17 01:00] VITALS: BP 109/61; PULSE 103; RESP 16; TEMP 98.7; O2SAT 96
[2016-12-17] MEDS: ALPRAZolam 0.5 MG TAB PO SCH ×3 (01:12→17:48)
[2016-12-17] MEDS: CEFEPIME INJ 2,000 MG in SODIUM CHLORIDE 0.9% INJ 100 ML IV SCH ×3 (01:13→17:48)
[2016-12-17 04:30] VITALS: BP 107/59; PULSE 95; RESP 16; TEMP 99.2; O2SAT 95
[2016-12-17] MEDS: HYDROMORPHONE IV SCH ×2 (04:47→18:07)
[2016-12-17] MEDS: SODIUM CHLORIDE 0.9% IV SCH ×2 (04:47→18:07)
[2016-12-17] MEDS: ANTI-INHIBITOR COAGULANT COMPLEX 100 UNIT INJ IV SCH (04:49)
[2016-12-17] MEDS: PCA - TOTAL MG DILAUDID DELIVERED PER SHIFT SCH ×2 (06:11→22:00)
[2016-12-17] MEDS: SODIUM CHLORIDE 0.9% FLUSH 10 ML FLUSH IVF PRN ×2 (06:12→06:47)
[2016-12-17 07:01] LABS: APTT (PATIENT) 70.9 SEC (24.3-30.1)
[2016-12-17 07:50] VITALS: BP 98/60; PULSE 98; RESP 20; TEMP 99.8; O2SAT 97
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
[2016-12-17] MEDS: SILVER SULFADIAZINE 1% CR 50 GM JAR TOPICAL SCH ×2 (09:57→21:54)
[2016-12-17] MEDS: MORPHINE SULFATE 60 MG CONTROLLED RELEASE TAB PO SCH ×2 (09:57→21:53)
[2016-12-17] MEDS: [UNRECOGNIZED DRUG - OTHER] IV SCH ×2 (09:59→17:49)
--- NOTE | 2016-12-17 11:39 | HHI.PR ---
Subjective Remarks doing very well - no chills, appears comfortable no mention of any pain ro asked for pain meds adjustment Objective Vitals Vital Signs Date Time Temp Pulse Resp B/P Pulse Ox O2 Delivery O2 Flow Rate FiO2 12/17/16 07:50 99.8 98 20 98/60 97 12/17/16 06:11 18 12/17/16 04:47 16 12/17/16 04:30 99.2 95 16 107/59 95 12/17/16 01:00 98.7 103 16 109/61 96 12/16/16 22:00 16 12/16/16 21:15 98.4 100 16 109/60 98 12/16/16 16:00 98.7 91 20 101/58 95 12/16/16 12:00 99.4 86 20 90/57 95 I/O 12/16/16 12/16/16 12/16/16 12/17/16 12/17/16 12/17/16 07:00 15:00 23:00 07:00 15:00 23:00 Intake Total 600 ml 720 ml 960 ml 3520 ml Output Total 1500 ml 725 ml 550 ml 1350 ml Balance -900 ml -5 ml 410 ml 2170 ml Intake Oral 600 ml 720 ml 960 ml 480 ml IV Total 3040 ml Output Urine Total 1500 ml 725 ml 550 ml 1350 ml Result Diagram: 12/17/16 0605 12/14/16 0915 Imaging Last Impressions Upper Extremity Ultrasound 12/15/16 0000 Signed Impressions: Service Date/Time: Thursday, December 15, 2016 19:08 - CONCLUSION: 1. Negative for deep venous thrombosis. Occlusive and nonocclusive thrombus in the right cephalic vein. Alejandro Neri MD Chest X-Ray 12/11/16 0000 Signed Impressions: Service Date/Time: November 09:04 - CONCLUSION: A faint consolidation within the lingula likely atelectasis with a poor inspiratory effort. Right sided Pbkiwv-t-Alcp catheter in excellent position. Garrett Altman MD Upper Extremity CT 12/10/16 0000 Signed Impressions: Service Date/Time: Saturday, December 10, 2016 19:14 - CONCLUSION: 1. Joint effusion. There is no evidence of acute fracture. Scot Flores MD Lower Extremity CT 12/10/16 0000 Signed Impressions: Service Date/Time: Saturday, December 10, 2016 19:04 - CONCLUSION: 1. 7.2 x 4.2 symmetr hematoma in left leads mediastinal Scot Flores MD Abdomen/Pelvis CT 12/10/16 0000 Signed Impressions: Service Date/Time: Saturday, December 10, 2016 18:59 - CONCLUSION: 1. No evidence of acute abdominal or pelvic process. No masses are identified. Scot Flores MD Objective Remarks oriented x [address] chest wall- - ellipitical superficial wound- s/p debridement lungs- decreased breath sounds, no rales regular rhythm abdomen soft, nontender, no guarding extremities- LUE - left elbow mild swelling with pain with extension, wrist no swelling-, with full extension- stable exam Left knee with minimal effusion-pain with full extension lateral aspect of thigh - mild swelling- ecchymoses moves feet and toes freely very good peripheral pulses all throughout A/P Assessment and Plan 26-year-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 Peripheral pulses strong and equal Give Feiba 7500 IV every 4. 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 septic arthritis- effusions on exam for 2D echo. reinforced IS effort- patient does have a port- externally no signs of infection. Dry superficial eschar left chest wall- does not look infected started on Cefepime- started 12/13. continue Levaquin 750 mg daily History of anxiety disorder Continue on Xanax Smoker counseled extensively Nicolás Green MD December 17, 2016 11:39
[2016-12-17 11:50] VITALS: BP 105/56; PULSE 105; RESP 20; TEMP 99.6; O2SAT 94
[2016-12-17] MEDS: [UNRECOGNIZED DRUG - OTHER] IV SCH ×2 (12:42→21:54)
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
[2016-12-17 15:52] VITALS: BP 100/57; PULSE 103; RESP 20; TEMP 98.6; O2SAT 96
[2016-12-17] MEDS: LEVOFLOXACIN 750 MG TAB PO SCH (17:48)
[2016-12-17 20:00] VITALS: BP 105/61; PULSE 102; RESP 16; TEMP 98.8; O2SAT 99
[2016-12-17] MEDS: REMOVE OLD PATCH T-DERMAL SCH (21:00)
[2016-12-18] VITALS (7 sets, daily range): BP systolic 91–110; BP diastolic 56–69; PULSE 83–100; RESP 16–20; TEMP 98.3–99.9; O2SAT 94–99
[2016-12-18] MEDS: [UNRECOGNIZED DRUG - OTHER] IV SCH ×3 (00:52→17:47)
[2016-12-18] MEDS: AMINOCAPROIC ACID 500 MG TAB PO SCH ×4 (00:53→17:48)
[2016-12-18] MEDS: ALPRAZolam 0.5 MG TAB PO SCH ×3 (00:53→17:48)
[2016-12-18] MEDS: CEFEPIME INJ 2,000 MG in SODIUM CHLORIDE 0.9% INJ 100 ML IV SCH ×3 (00:53→17:52)
[2016-12-18] MEDS: NICOTINE 4 MG/GUM CHEW PRN ×3 (00:53→20:46)
[2016-12-18] MEDS: [UNRECOGNIZED DRUG - OTHER] IV SCH ×3 (04:50→20:45)
[2016-12-18] MEDS: PCA - TOTAL MG DILAUDID DELIVERED PER SHIFT SCH ×3 (06:00→22:00)
[2016-12-18] MEDS: SODIUM CHLORIDE 0.9% IV SCH (06:45)
[2016-12-18] MEDS: HYDROMORPHONE IV SCH (06:45)
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
[2016-12-18] MEDS: MORPHINE SULFATE 60 MG CONTROLLED RELEASE TAB PO SCH ×2 (09:06→20:46)
[2016-12-18] MEDS: SILVER SULFADIAZINE 1% CR 50 GM JAR TOPICAL SCH ×2 (09:07→20:47)
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
[2016-12-18] MEDS: LEVOFLOXACIN 750 MG TAB PO SCH (17:48)
[2016-12-18] MEDS: REMOVE OLD PATCH T-DERMAL SCH (20:46)
[2016-12-19] VITALS: BP 102/64; PULSE 99; RESP 17; TEMP 100; O2SAT 95
[2016-12-19] MEDS: [UNRECOGNIZED DRUG - OTHER] IV SCH ×4 (00:48→23:59)
[2016-12-19] MEDS: ALPRAZolam 0.5 MG TAB PO SCH ×4 (00:48→23:55)
[2016-12-19] MEDS: CEFEPIME INJ 2,000 MG in SODIUM CHLORIDE 0.9% INJ 100 ML IV SCH ×3 (00:48→18:56)
[2016-12-19] MEDS: SILVER SULFADIAZINE 1% CR 50 GM JAR TOPICAL SCH ×3 (00:48→21:03)
[2016-12-19] MEDS: NICOTINE 4 MG/GUM CHEW PRN ×8 (00:48→23:52)
[2016-12-19] MEDS: AMINOCAPROIC ACID 500 MG TAB PO SCH ×5 (00:48→23:53)
[2016-12-19] MEDS ORDERED: FACTOR VIIA (RECOMB) 5 MG VIAL IV PUSH SCH (01:00)
[2016-12-19] MEDS: SODIUM CHLORIDE 0.9% IV SCH (03:42)
[2016-12-19] MEDS: HYDROMORPHONE IV SCH (03:42)
[2016-12-19 04:00] VITALS: BP 96/60; PULSE 88; RESP 16; TEMP 99.4; O2SAT 98
[2016-12-19] MEDS ORDERED: ANTI-INHIBITOR COAGULANT COMPLEX 100 UNIT INJ IV SCH (05:00)
[2016-12-19] MEDS: PCA - TOTAL MG DILAUDID DELIVERED PER SHIFT SCH ×3 (06:00→22:00)
[2016-12-19] MEDS: [UNRECOGNIZED DRUG - OTHER] IV SCH ×3 (06:07→21:03)
[2016-12-19 08:30] VITALS: BP 99/57; PULSE 93; RESP 16; TEMP 100.3; O2SAT 96
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
[2016-12-19] MEDS: MORPHINE SULFATE 60 MG CONTROLLED RELEASE TAB PO SCH ×2 (09:52→20:37)
[2016-12-19 11:35] LABS: APTT (PATIENT) 70.7 SEC (24.3-30.1)
[2016-12-19 11:54] LABS: FACTOR VIII(8) ACTIVITY-I 1 (50-180); NIJMEGEN ASSAY ND BETHESDA (<0.6)
[2016-12-19 12:00] VITALS: BP 104/62; PULSE 92; RESP 16; TEMP 100.4; O2SAT 97
[2016-12-19] MEDS ORDERED: SODIUM CHLORID 0.9% 500 ML INJ 500 ML IV ONE (13:00)
--- NOTE | 2016-12-19 14:54 | HHI.PR ---
Subjective Remarks Deferred entry - patient seen at 1 pm Patient states pain in left arm was better in MAT MACHINE OPERATOR pump but now is hurting more denies cp/sob had a low grade fever w a T max of 100.3 F wbc trending down denies melena/hematochezia c/o left hip pain Patient c/o poor appetite bp low with sbp 99/57 Objective Vitals Vital Signs Date Time Temp Pulse Resp B/P Pulse Ox O2 Delivery O2 Flow Rate FiO2 12/19/16 13:31 16 12/19/16 08:30 100.3 93 16 99/57 96 12/19/16 06:00 18 12/19/16 04:00 99.4 88 16 96/60 98 12/19/16 03:42 18 12/19/16 00:00 100.0 99 17 102/64 95 12/18/16 22:00 18 12/18/16 20:07 98.3 100 18 98/57 98 12/18/16 15:20 99.9 92 20 104/56 97 I/O 12/18/16 12/18/16 12/18/16 12/19/16 12/19/16 12/19/16 07:00 15:00 23:00 07:00 15:00 23:00 Intake Total 480 ml 480 ml 120 ml Output Total 1550 ml 700 ml 100 ml 800 ml 500 ml Balance -1070 ml -220 ml -100 ml -680 ml -500 ml Intake Oral 480 ml 480 ml 120 ml Output Urine Total 1550 ml 700 ml 100 ml 800 ml 500 ml # Voids 0 # Bowel Movements 2 Result Diagram: 12/19/16 0950 Imaging Last Impressions Upper Extremity Ultrasound 12/15/16 0000 Signed Impressions: Service Date/Time: Thursday, December 15, 2016 19:08 - CONCLUSION: 1. Negative for deep venous thrombosis. Occlusive and nonocclusive thrombus in the right cephalic vein. Alejandro Neri MD Chest X-Ray 12/11/16 0000 Signed Impressions: Service Date/Time: November 09:04 - CONCLUSION: A faint consolidation within the lingula likely atelectasis with a poor inspiratory effort. Right sided [id number] catheter in excellent position. Garrett Altman MD Upper Extremity CT 12/10/16 0000 Signed Impressions: Service Date/Time: Saturday, December 10, 2016 19:14 - CONCLUSION: 1. Joint effusion. There is no evidence of acute fracture. Scot Flores MD Lower Extremity CT 12/10/16 0000 Signed Impressions: Service Date/Time: Saturday, December 10, 2016 19:04 - CONCLUSION: 1. 7.2 x 4.2 symmetr hematoma in left leads mediastinal Scot Flores MD Abdomen/Pelvis CT 12/10/16 0000 Signed Impressions: Service Date/Time: Saturday, December 10, 2016 18:59 - CONCLUSION: 1. No evidence of acute abdominal or pelvic process. No masses are identified. Scot Flores MD Objective Remarks GENERAL: sleepy, NAD SKIN: Warm and dry. Has ecchymoses in his lateral left thigh. Wound close to port, scab came off, wound with some ointment, clean base, no surrounding cellulitis HEAD: Atraumatic. Normocephalic. No temporal wasting, or tenderness. EYES: [place] conjunctiva. No petechia or hemorrhage. No scleral icterus. No injection or drainage. EARS, NOSE AND THROAT: Nose without bleeding or purulent nasal discharge. No sinus tenderness. No oral lesions noted. No exudate. No oral thrush. NECK: Trachea midline. Supple and not tender, no meningeal signs CARDIOVASCULAR: Regular rate and rhythm. No murmurs, rubs or gallops heard RESPIRATORY: Clear to auscultation. Breath sounds equal bilaterally. No rales , wheezing or rhonchi ABDOMEN: Soft, non-tender, nondistended. Bowel sounds present and normoactive. No guarding. No rebound. No organomegaly. EXTREMITIES: No clubbing, cyanosis, or edema. His L elbow has evidence of effusion, and has very limited ROM due to the pain. His L knee has effusion and severe pain with any ROM. No calf tenderness. Well perfused and warm. BACK: Pain on palpation of his L hip NEUROLOGICAL: Sleepy PSYCHIATRIC: Normal affect, calm and cooperative. LINE: No evidence of infection on the port which is on his L upper chest Procedures none Medications and IVs Current Medications Medications (Trade) Dose Ordered Sig/Mike Route Start Time Stop Time Status Last Admin (NS Flush) 2 ml UNSCH PRN IVF 12/10/16 13:45 12/17/16 06:47 (Xanax) 0.5 mg Q8H PO 12/10/16 17:30 12/19/16 17:36 (Oramorph Sr) 60 mg Q12HR PO 12/10/16 21:00 12/19/16 09:52 (Amicar) 2,000 mg Q6HR PO 12/10/16 18:45 12/19/16 17:37 (Levaquin) 750 mg Q24H PO 12/11/16 18:00 12/19/16 17:36 (Narcan Inj) 0.4 mg UNSCH PRN IV 12/12/16 07:30 (Benadryl) 25 mg Q4H PRN PO 12/12/16 07:30 MAT MACHINE OPERATOR Dosage Infused (Pha) 1 Q8HR .XX 12/12/16 07:30 12/19/16 13:31 Miscellaneous Information 1 HS T-DERMAL 12/13/16 21:00 12/16/16 22:02 Nicotine 4 mg 4 mg UNSCH PRN CHEW 12/13/16 13:30 12/19/16 18:59 (Maxipime Inj/NS Inj) 100 ml @ 200 mls/hr Q8H IV 12/13/16 18:00 12/19/16 18:56 (Silvadene 1% Cream (50 Gm)) 1 applic Q12HR TOPICAL 12/16/16 09:00 12/19/16 09:53 (Novoseven Rt Inj) 10 mg Q8H IV PUSH 12/19/16 01:00 Hold (Feiba Nf Inj) 7,500 units Q8H IV 12/19/16 05:00 Hold Patient Own Medication PT OWN MED: PT OWN M... Q8H IV 12/19/16 01:00 12/19/16 17:36 Patient Own Medication PT OWN MED: FEIBA 7,500 UN... 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 Presents with hematoma in the left gluteal muscle group, hemarthrosis in the left knee and pain in the left elbow. Patient status post infusion of 2 units of packed red blood cells, H&H stable (2) Hemarthrosis ICD Code: M25.00 Status: Acute Plan: With infusion swelling. His pain involving the left elbow, left knee, left hip. Continue pain control with MAT MACHINE OPERATOR Dilaudid pump. Left hip posterior thigh hematoma with overlying ecchymosis with limitation in range of motion - stable There are no signs of compartment syndrome. Peripheral pulses are strong and equal. Continue Feiba and Novosen as per hematology. Continue aminocaproic acid. 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 Hematology following. (4) Sepsis ICD Code: A41.9 Status: Acute Plan: Present on admission. Infectious disease consulted on following. Continue IV antibiotics, patient currently on gentamicin, cefepime and Levaquin PO BC reviewed - has different GNR in BC 12/12 from port - BC with Achromobacter 12/13 from port - Klebsiella and Serratia 12/15 from port with GNR and GPC in clusters BC 12/17 now with GNR BC 12/18 negative so far Echo ok Doppler no thrombus where port is (5) Poor appetite ICD Code: R63.0 Status: Acute Plan: Will Rx Marinol (6) Hypotension ICD Code: I95.9 Status: Acute Plan: Patient with systolic blood pressure of 99/57 mmHg. I will give a bolus of 500 mL of normal saline. Continue to monitor vital signs. I will place patient on IV fluids. Assessment and Plan GI prophylaxis: Place on PPI. DVT prophylaxis: SCDs, prophylaxis given hemarthrosis. Discharge Planning Continue to monitor in the medical floor. Problem Qualifiers (1) Anemia: Qualified Code: D64.9 - Anemia, unspecified type (2) Sepsis: Qualified Code: A41.9 - Sepsis, due to unspecified organism (3) Hypotension: Qualified Code: I95.9 - Hypotension, unspecified hypotension type Ritesh Mclaughlin MD December 19, 2016 14:54
[2016-12-19 16:00] VITALS: BP 128/67; PULSE 100; RESP 18; TEMP 98.7; O2SAT 97
--- NOTE | 2016-12-19 16:03 | HHI.IDPN ---
Subjective Subjective Remarks Notes reviewed Pain is the same, better control, on dilaudid FLUME TENDER pump Temps occ low grade BC reviewed - has different GNR in BC 12/12 from port - BC with Achromobacter 12/13 from port - Klebsiella and Serratia 12/15 from port with GNR and GPC in clusters BC 12/17 now with GNR BC 12/18 negative so far Echo ok Doppler no thrombus where port is Antibiotics Cefepime Levaquin Lines Port Past Medical History Severe hemophilia a Chronic pain Anxiety disorder Problem with recurrent hemarthrosis Previous port infection, and removal Past Surgical History [id number] placement x 2, last one place about 1 year ago History compartment syndrome History of ORIF of left femoral neck fracture History of left knee surgery for infected knee Allergies: Coded Allergies: Nonsteroidal Anti-Inflammatory Agts (Verified Adverse Reaction, Severe, bleeding, 11/18/16) Objective . Vital Signs Date Time Temp Pulse Resp B/P Pulse Ox O2 Delivery O2 Flow Rate FiO2 12/19/16 13:31 16 12/19/16 08:30 100.3 93 16 99/57 96 12/19/16 06:00 18 12/19/16 04:00 99.4 88 16 96/60 98 12/19/16 03:42 18 12/19/16 00:00 100.0 99 17 102/64 95 12/18/16 22:00 18 12/18/16 20:07 98.3 100 18 98/57 98 12/18/16 12/18/16 12/19/16 15:00 23:00 07:00 Intake Total 480 ml 120 ml Output Total 700 ml 100 ml 800 ml Balance -220 ml -100 ml -680 ml Intake Oral 480 ml 120 ml Output Urine Total 700 ml 100 ml 800 ml # Voids 0 # Bowel Movements 2 . Laboratory Tests Test 12/19/16 09:50 Hemoglobin 9.0 GM/DL Microbiology Date/Time Procedure Status Source Growth 12/17/16 22:05 Aerobic Blood Culture - Preliminary Resulted Blood Other Gram Negative Twan 12/17/16 22:05 Anaerobic Blood Culture - Preliminary Resulted Blood Other NO GROWTH IN 2 DAYS 12/18/16 07:03 Aerobic Blood Culture - Preliminary Resulted Blood Other NO GROWTH IN 1 DAY 12/18/16 07:03 Anaerobic Blood Culture - Preliminary Resulted Blood Other NO GROWTH IN 1 DAY Imaging Last Impressions Chest X-Ray 12/11/16 0000 Signed Impressions: Service Date/Time: November 09:04 - CONCLUSION: A faint consolidation within the lingula likely atelectasis with a poor inspiratory effort. Right sided [id number] catheter in excellent position. Garrett Altman MD Upper Extremity CT 12/10/16 0000 Signed Impressions: Service Date/Time: Saturday, December 10, 2016 19:14 - CONCLUSION: 1. Joint effusion. There is no evidence of acute fracture. Scot Flores MD Lower Extremity CT 12/10/16 0000 Signed Impressions: Service Date/Time: Saturday, December 10, 2016 19:04 - CONCLUSION: 1. 7.2 x 4.2 symmetr hematoma in left leads mediastinal Scot Flores MD Abdomen/Pelvis CT 12/10/16 0000 Signed Impressions: Service Date/Time: Saturday, December 10, 2016 18:59 - CONCLUSION: 1. No evidence of acute abdominal or pelvic process. No masses are identified. Scot Flores MD Physical Exam GENERAL: sleepy, NAD SKIN: Warm and dry. Has ecchymoses in his lateral left thigh. Wound close to port, scab came off, wound with some ointment, clean base, no surrounding cellulitis HEAD: Atraumatic. Normocephalic. No temporal wasting, or tenderness. EYES: [place] conjunctiva. No petechia or hemorrhage. No scleral icterus. No injection or drainage. EARS, NOSE AND THROAT: Nose without bleeding or purulent nasal discharge. No sinus tenderness. No oral lesions noted. No exudate. No oral thrush. NECK: Trachea midline. Supple and not tender, no meningeal signs CARDIOVASCULAR: Regular rate and rhythm. No murmurs, rubs or gallops heard RESPIRATORY: Clear to auscultation. Breath sounds equal bilaterally. No rales , wheezing or rhonchi ABDOMEN: Soft, non-tender, nondistended. Bowel sounds present and normoactive. No guarding. No rebound. No organomegaly. EXTREMITIES: No clubbing, cyanosis, or edema. His L elbow has evidence of effusion, and has very limited ROM due to the pain. His L knee has effusion and severe pain with any ROM. No calf tenderness. Well perfused and warm. BACK: Pain on palpation of his L buttocks NEUROLOGICAL: Sleepy PSYCHIATRIC: Normal affect, calm and cooperative. LINE: No evidence of infection on the port which is on his L upper chest Assessment & Plan Remarks IMPRESSION Sepsis on presentation and has different GNR from his port - likely port infection - concerns would be septic joints - he has effusions in hie L elbow, and L knee, and also has L buttock hematoma; could be seeded Hemophilia with recurrent spontaneous hemarthrosis, and other bleeding Chronic pain, and chronic narcotic use Fevers, temps better RECOMMENDATION Continue cefepime Continue Levaquin Give short course of Gentamicin Repeat BC from port to doucment clearing D/W Dr ward - port removal on Thursday Follow C/S Follow temps Monitor progress Dr Daly available if needed in my absence 12/20-12/22 Kamini Mcgrath MD December 19, 2016 16:03
[2016-12-19] MEDS: GENTAMICIN INJ 400 MG in SODIUM CHLORIDE 0.9% INJ 100 ML IV SCH (17:35)
[2016-12-19] MEDS: LEVOFLOXACIN 750 MG TAB PO SCH (17:36)
[2016-12-19] MEDS: DRONABINOL 2.5 MG CAP PO SCH (17:40)
[2016-12-19 20:00] VITALS: BP 103/56; PULSE 92; RESP 18; TEMP 98.6; O2SAT 99
[2016-12-19] MEDS: REMOVE OLD PATCH T-DERMAL SCH (20:38)
[2016-12-19] MEDS: SODIUM CHLOR 0.9% 1000 ML INJ 1,000 ML IV SCH (21:03)
[2016-12-20] VITALS: BP 120/58; PULSE 103; RESP 17; TEMP 100.1; O2SAT 98
[2016-12-20] MEDS: NICOTINE 4 MG/GUM CHEW PRN ×7 (02:16→23:48)
[2016-12-20] MEDS: CEFEPIME INJ 2,000 MG in SODIUM CHLORIDE 0.9% INJ 100 ML IV SCH ×3 (02:17→17:57)
[2016-12-20 04:00] VITALS: BP 117/66; PULSE 96; RESP 18; TEMP 99.3; O2SAT 98
[2016-12-20] MEDS: SODIUM CHLORIDE 0.9% IV SCH (04:50)
[2016-12-20] MEDS: HYDROMORPHONE IV SCH (04:50)
[2016-12-20] MEDS: [UNRECOGNIZED DRUG - OTHER] IV SCH (05:23)
[2016-12-20] MEDS: PCA - TOTAL MG DILAUDID DELIVERED PER SHIFT SCH ×3 (05:26→22:34)
[2016-12-20] MEDS: AMINOCAPROIC ACID 500 MG TAB PO SCH ×4 (05:57→23:47)
[2016-12-20 05:58] LABS: HEMATOCRIT 25.5 % (39.0-51.0); MEAN CELL VOLUME 80.3 FL (80.0-100.0); MEAN CORPUSCULAR HEMOGLOBIN 26.2 PG (27.0-34.0); MEAN CORPUSCULAR HGB CONC 32.7 % (32.0-36.0); PLATELET COUNT 156 TH/MM3 (150-450); RED BLOOD COUNT 3.17 MIL/MM3 (4.50-5.90); RED CELL DISTRIBUTION WIDTH 17.6 % (11.6-17.2); REVIEW FLAG FINAL; WHITE BLOOD COUNT 12.3 TH/MM3 (4.0-11.0)
[2016-12-20 06:24] LABS: BICARBONATE 27.3 MEQ/L (21.0-32.0); POTASSIUM 3.6 MEQ/L (3.5-5.1)
[2016-12-20 08:00] VITALS: BP 129/61; PULSE 88; RESP 20; TEMP 97.5; O2SAT 97
[2016-12-20] MEDS: SODIUM CHLOR 0.9% 1000 ML INJ 1,000 ML IV SCH ×2 (08:55→21:00)
[2016-12-20] MEDS: MORPHINE SULFATE 60 MG CONTROLLED RELEASE TAB PO SCH ×2 (09:01→20:57)
[2016-12-20] MEDS: ALPRAZolam 0.5 MG TAB PO SCH ×2 (09:01→17:57)
[2016-12-20] MEDS: SODIUM CHLORIDE 0.9% FLUSH 10 ML FLUSH IVF PRN (09:02)
[2016-12-20] MEDS: SILVER SULFADIAZINE 1% CR 50 GM JAR TOPICAL SCH ×2 (09:02→22:04)
[2016-12-20] MEDS: FACTOR VIIA (RECOMB) 5 MG VIAL IV PUSH SCH ×2 (09:02→17:57)
--- NOTE | 2016-12-20 10:22 | PD.ONC.PN ---
Subjective Subjective Remarks Tmax 100.1 overnight. Patient resting in bed. he states the pain in his knee and his hip feel a bit worse today. Denies epistaxis or blood in stool. Has not had much of an appetite and didn't eat much breakfast this morning. Objective Data Date Time Temp Pulse Resp B/P Pulse Ox O2 Delivery O2 Flow Rate FiO2 12/20/16 08:00 97.5 88 20 129/61 97 12/20/16 05:26 16 12/20/16 04:50 16 12/20/16 04:00 99.3 96 18 117/66 98 12/20/16 00:00 100.1 103 17 120/58 98 12/19/16 22:00 18 12/19/16 20:00 98.6 92 18 103/56 99 12/19/16 16:00 98.7 100 18 128/67 97 12/19/16 13:31 16 12/19/16 12:00 100.4 92 16 104/62 97 12/20/16 12/20/16 12/20/16 07:00 15:00 23:00 Intake Total 720 ml Output Total 700 ml 725 ml Balance 20 ml -725 ml Result Diagram: 12/20/16 0520 12/20/16 0520 Laboratory Results Laboratory Tests Test 12/20/16 05:20 White Blood Count 12.3 TH/MM3 Red Blood Count 3.17 MIL/MM3 Hemoglobin 8.3 GM/DL Hematocrit 25.5 % Mean Corpuscular Volume 80.3 FL Mean Corpuscular Hemoglobin 26.2 PG Mean Corpuscular Hemoglobin 32.7 % Concent Red Cell Distribution Width 17.6 % Platelet Count 156 TH/MM3 Mean Platelet Volume 8.0 FL Sodium Level 139 MEQ/L Potassium Level 3.6 MEQ/L Chloride Level 104 MEQ/L Carbon Dioxide Level 27.3 MEQ/L Anion Gap 8 MEQ/L Blood Urea Nitrogen 8 MG/DL Creatinine 0.41 MG/DL Estimat Glomerular Filtration 255 ML/MIN Rate Random Glucose 118 MG/DL Calcium Level 8.5 MG/DL Phosphorus Level 2.6 MG/DL Magnesium Level 2.0 MG/DL Culture Results Microbiology Date/Time Procedure Status Source Growth 12/17/16 22:05 Aerobic Blood Culture - Preliminary Resulted Blood Other Gram Negative Twan 12/17/16 22:05 Anaerobic Blood Culture - Preliminary Resulted Blood Other NO GROWTH IN 2 DAYS 12/18/16 07:03 Aerobic Blood Culture - Preliminary Resulted Blood Other NO GROWTH IN 1 DAY 12/18/16 07:03 Anaerobic Blood Culture - Preliminary Resulted Blood Other NO GROWTH IN 1 DAY 12/20/16 05:20 Aerobic Blood Culture Received Blood Other Pending 12/20/16 05:20 Anaerobic Blood Culture Received Blood Other Pending Administered Medications Medications (Trade) Dose Ordered Sig/Mike Route PRN Reason Start Time Stop Time Status Last Admin Dose Admin Sodium Chloride (NS Flush) 2 ml UNSCH PRN IVF FLUSH AFTER USING IV ACCESS 12/10/16 13:45 12/20/16 09:02 Alprazolam (Xanax) 0.5 mg Q8H PO 12/10/16 17:30 12/20/16 09:01 Morphine Sulfate (Oramorph Sr) 60 mg Q12HR PO 12/10/16 21:00 12/20/16 09:01 Aminocaproic Acid (Amicar) 2,000 mg Q6HR PO 12/10/16 18:45 12/20/16 05:57 Levofloxacin (Levaquin) 750 mg Q24H PO 12/11/16 18:00 12/19/16 17:36 BONE CHAR OPERATOR Dosage Infused (Pha) 1 Q8HR .XX 12/12/16 07:30 12/20/16 05:26 Miscellaneous Information 1 HS T-DERMAL 12/13/16 21:00 12/16/16 22:02 Nicotine 4 mg 4 mg UNSCH PRN CHEW NICOTINE CRAVINGS 12/13/16 13:30 12/20/16 09:04 Cefepime HCl/ Sodium Chloride (Maxipime Inj/NS Inj) 100 ml @ 200 mls/hr Q8H IV 12/13/16 18:00 12/20/16 09:01 Silver Sulfadiazine (Silvadene 1% Cream (50 Gm)) 1 applic Q12HR TOPICAL 12/16/16 09:00 12/20/16 09:02 Patient Own Medication PT OWN MED: PT OWN M... Q8H IV 12/19/16 01:00 Hold 12/19/16 23:59 Patient Own Medication PT OWN MED: FEIBA 7,500 UN... Q8H IV 12/19/16 05:00 Hold 12/20/16 05:23 Dronabinol 2.5 mg 2.5 mg BID@11,16 PO 12/19/16 16:00 12/19/16 17:40 Gentamicin Sulfate 400 mg/ Sodium Chloride 110 ml @ 100 mls/hr Q24H IV 12/19/16 17:00 12/21/16 18:05 12/19/16 17:35 Sodium Chloride (NS 1000 ml Inj) 1,000 ml @ 84 mls/hr [id number] IV 12/19/16 21:00 12/19/16 21:03 Factor VII (Pha) (Novoseven Rt Inj) 10 mg Q8H IV PUSH 12/20/16 09:00 12/20/16 09:02 Objective Remarks GENERAL: Young man, sitting up in bed in nad. SKIN: Warm and dry. bandage over the right chest wall is partially lifted up to reveal healthy pink tissue with white ointment overlying. HEAD: Normocephalic. NARES: without bleeding or dried blood EYES: No injection or drainage. NECK: Supple, trachea midline. CARDIOVASCULAR: Regular rate and rhythm RESPIRATORY: Breath sounds equal bilaterally. No accessory muscle use. GASTROINTESTINAL: Abdomen soft, non-tender, nondistended. EXTREMITIES: No cyanosis, or edema. MUSCULOSKELETAL: chronic joint changes noted. improved ecchymoses along left hip NEUROLOGICAL: No obvious focal deficit. Awake, alert, and oriented x3. PSYCHIATRIC: Appropriate mood and affect; insight and judgment normal. 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 Presents with hematoma in the left gluteal muscle group, hemarthrosis in the left knee and pain in the left elbow. Plan 1. Hemophilia A with a high circulating factor VIII inhibitor titer (12.5 [place] units, >5 [place] units is considered high): continue FEIBA and NovoSeven, rotating every four hours. 2. Sepsis: multiple + BC, GNR. on Cefepime, Gentamicin and Levaquin ID following. possible port removal Thursday. 3. Pain control: on hydromorphone BONE CHAR OPERATOR pump with long-acting morphine sulfate. Attending Statement The exam, history, and the medical decision-making described in the above note were completed with the assistance of the mid-level provider. I reviewed and agree with the findings presented. I attest that I had a [id number] encounter with the patient on the same day, and personally performed and documented my assessment and findings in the medical record. Slight drop in Hb. If further drop in hemoglobin tomorrow (less than 8) will need repeat CT scan to assess hematoma. Knee swelling is stable Nallely Brand December 20, 2016 10:22 Jeffrey Willingham MD December 20, 2016 23:47
[2016-12-20 12:26] VITALS: BP 97/62; PULSE 92; RESP 20; TEMP 98.5; O2SAT 95
[2016-12-20] MEDS: ANTI-INHIBITOR COAGULANT COMPLEX 100 UNIT INJ IV SCH ×2 (13:03→22:04)
[2016-12-20] MEDS: DRONABINOL 2.5 MG CAP PO SCH ×2 (13:03→18:02)
--- NOTE | 2016-12-20 15:45 | HHI.PR ---
Subjective Remarks T max 100.1 he states the pain in his knee and his hip feel a bit worse today. states appetite is still poor' denies cp/sob denies GI bleed Objective Vitals Vital Signs Date Time Temp Pulse Resp B/P Pulse Ox O2 Delivery O2 Flow Rate FiO2 12/20/16 12:26 98.5 92 20 97/62 95 12/20/16 08:00 97.5 88 20 129/61 97 12/20/16 05:26 16 12/20/16 04:50 16 12/20/16 04:00 99.3 96 18 117/66 98 12/20/16 00:00 100.1 103 17 120/58 98 12/19/16 22:00 18 12/19/16 20:00 98.6 92 18 103/56 99 12/19/16 16:00 98.7 100 18 128/67 97 I/O 12/19/16 12/19/16 12/19/16 12/20/16 12/20/16 12/20/16 07:00 15:00 23:00 07:00 15:00 23:00 Intake Total 120 ml 3260 ml 720 ml 240 ml Output Total 800 ml 500 ml 2300 ml 700 ml 2125 ml Balance -680 ml -500 ml 960 ml 20 ml -1885 ml Intake Oral 120 ml 2280 ml 720 ml 240 ml IV Total 980 ml Output Urine Total 800 ml 500 ml 2300 ml 700 ml 2125 ml Result Diagram: 12/20/16 0520 12/20/16 0520 Imaging Last Impressions Upper Extremity Ultrasound 12/15/16 0000 Signed Impressions: Service Date/Time: Thursday, December 15, 2016 19:08 - CONCLUSION: 1. Negative for deep venous thrombosis. Occlusive and nonocclusive thrombus in the right cephalic vein. Alejandro Neri MD Chest X-Ray 12/11/16 0000 Signed Impressions: Service Date/Time: November 09:04 - CONCLUSION: A faint consolidation within the lingula likely atelectasis with a poor inspiratory effort. Right sided [id number]-[id number]-[id number] catheter in excellent position. Garrett Altman MD Upper Extremity CT 12/10/16 0000 Signed Impressions: Service Date/Time: Saturday, December 10, 2016 19:14 - CONCLUSION: 1. Joint effusion. There is no evidence of acute fracture. Scot Flores MD Lower Extremity CT 12/10/16 0000 Signed Impressions: Service Date/Time: Saturday, December 10, 2016 19:04 - CONCLUSION: 1. 7.2 x 4.2 symmetr hematoma in left leads mediastinal Scot Flores MD Abdomen/Pelvis CT 12/10/16 0000 Signed Impressions: Service Date/Time: Saturday, December 10, 2016 18:59 - CONCLUSION: 1. No evidence of acute abdominal or pelvic process. No masses are identified. Scot Flores MD Objective Remarks GENERAL: sleepy, NAD SKIN: Warm and dry. Has ecchymoses in his lateral left thigh. Wound close to port, scab came off, wound with some ointment, clean base, no surrounding cellulitis HEAD: Atraumatic. Normocephalic. No temporal wasting, or tenderness. EYES: [place] conjunctiva. No petechia or hemorrhage. No scleral icterus. No injection or drainage. EARS, NOSE AND THROAT: Nose without bleeding or purulent nasal discharge. No sinus tenderness. No oral lesions noted. No exudate. No oral thrush. NECK: Trachea midline. Supple and not tender, no meningeal signs CARDIOVASCULAR: Regular rate and rhythm. No murmurs, rubs or gallops heard RESPIRATORY: Clear to auscultation. Breath sounds equal bilaterally. No rales , wheezing or rhonchi ABDOMEN: Soft, non-tender, nondistended. Bowel sounds present and normoactive. No guarding. No rebound. No organomegaly. EXTREMITIES: No clubbing, cyanosis, or edema. His L elbow has evidence of effusion, and has very limited ROM due to the pain. His L knee has effusion and severe pain with any ROM. No calf tenderness. Well perfused and warm. BACK: Pain on palpation of his L hip NEUROLOGICAL: Sleepy PSYCHIATRIC: Normal affect, calm and cooperative. LINE: No evidence of infection on the port which is on his L upper chest Procedures none Medications and IVs Current Medications Medications (Trade) Dose Ordered Sig/Mike Route Start Time Stop Time Status Last Admin (NS Flush) 2 ml UNSCH PRN IVF 12/10/16 13:45 12/20/16 09:02 (Xanax) 0.5 mg Q8H PO 12/10/16 17:30 12/20/16 09:01 (Oramorph Sr) 60 mg Q12HR PO 12/10/16 21:00 12/20/16 09:01 (Amicar) 2,000 mg Q6HR PO 12/10/16 18:45 12/20/16 13:02 (Levaquin) 750 mg Q24H PO 12/11/16 18:00 12/19/16 17:36 (Narcan Inj) 0.4 mg UNSCH PRN IV 12/12/16 07:30 (Benadryl) 25 mg Q4H PRN PO 12/12/16 07:30 SUPERVISOR PLATE [employer]STING Dosage Infused (Pha) 1 Q8HR .XX 12/12/16 07:30 12/20/16 05:26 Miscellaneous Information 1 HS T-DERMAL 12/13/16 21:00 12/16/16 22:02 Nicotine 4 mg 4 mg UNSCH PRN CHEW 12/13/16 13:30 12/20/16 13:03 (Maxipime Inj/NS Inj) 100 ml @ 200 mls/hr Q8H IV 12/13/16 18:00 12/20/16 09:01 (Silvadene 1% Cream (50 Gm)) 1 applic Q12HR TOPICAL 12/16/16 09:00 12/20/16 09:02 Patient Own Medication PT OWN MED: PT OWN M... Q8H IV 12/19/16 01:00 Hold 12/19/16 23:59 Patient Own Medication PT OWN MED: FEIBA 7,500 UN... 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 Presents with hematoma in the left gluteal muscle group, hemarthrosis in the left knee and pain in the left elbow. Patient status post transfusion of 2 units of packed red blood cells, H&H stable (2) Hemarthrosis ICD Code: M25.00 Status: Acute Plan: With joint swelling. His pain involving the left elbow, left knee, left hip. Continue pain control with SUPERVISOR PLATE PASTING Dilaudid pump. Left hip posterior thigh hematoma with overlying ecchymosis with limitation in range of motion - stable There are no signs of compartment syndrome. Peripheral pulses are strong and equal. Continue Feiba and Novosen as per hematology. Continue aminocaproic acid. 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 Hematology following. (4) Sepsis ICD Code: A41.9 Status: Acute Plan: Present on admission. Infectious disease consulted on following. Continue IV antibiotics, patient currently on gentamicin, cefepime and Levaquin PO BC reviewed - has different GNR in BC 12/12 from port - BC with Achromobacter 12/13 from port - Klebsiella and Serratia 12/15 from port with GNR and GPC in clusters BC 12/17 now with GNR BC 12/18 negative so far Echo ok Doppler no thrombus where port is (5) Poor appetite ICD Code: R63.0 Status: Acute Plan: Continue Marinol, still poor (6) Hypotension ICD Code: I95.9 Status: Acute Plan: sp bolus of normal saline on 12/19 bp better - continue to monitor vital signs - continue normal saline for manteinance Iv fluids. Bolus PRN for hypotension. Assessment and Plan GI prophylaxis: Place on PPI. DVT prophylaxis: SCDs, prophylaxis given hemarthrosis. Discharge Planning Continue to monitor in the medical floor. Problem Qualifiers (1) Anemia: Qualified Code: D64.9 - Anemia, unspecified type (2) Sepsis: Qualified Code: A41.9 - Sepsis, due to unspecified organism (3) Hypotension: Qualified Code: I95.9 - Hypotension, unspecified hypotension type Ritesh Mclaughlin MD December 20, 2016 15:45
[2016-12-20] MEDS ORDERED: SODIUM CHLOR 0.9% 1000 ML INJ 1,000 ML IV ONE (16:15)
[2016-12-20 16:54] VITALS: BP 103/57; PULSE 93; RESP 20; TEMP 97.1; O2SAT 99
[2016-12-20] MEDS: LEVOFLOXACIN 750 MG TAB PO SCH (17:57)
[2016-12-20] MEDS: GENTAMICIN INJ 400 MG in SODIUM CHLORIDE 0.9% INJ 100 ML IV SCH (18:46)
[2016-12-20 20:00] VITALS: BP 108/57; PULSE 95; RESP 17; TEMP 97.4; O2SAT 95
[2016-12-20] MEDS: REMOVE OLD PATCH T-DERMAL SCH (20:57)
[2016-12-21] VITALS: BP 97/55; PULSE 87; RESP 18; TEMP 97.7; O2SAT 95
[2016-12-21] MEDS: CEFEPIME INJ 2,000 MG in SODIUM CHLORIDE 0.9% INJ 100 ML IV SCH ×3 (00:57→18:13)
[2016-12-21] MEDS: ALPRAZolam 0.5 MG TAB PO SCH ×3 (00:57→17:59)
[2016-12-21] MEDS: NICOTINE 4 MG/GUM CHEW PRN ×8 (01:01→23:41)
[2016-12-21] MEDS: FACTOR VIIA (RECOMB) 5 MG VIAL IV PUSH SCH ×3 (02:04→18:02)
[2016-12-21 04:00] VITALS: BP 103/58; PULSE 90; RESP 18; TEMP 98.8; O2SAT 95
[2016-12-21] MEDS: PCA - TOTAL MG DILAUDID DELIVERED PER SHIFT SCH ×3 (05:30→21:42)
[2016-12-21] MEDS: AMINOCAPROIC ACID 500 MG TAB PO SCH ×4 (06:18→23:41)
[2016-12-21] MEDS: ANTI-INHIBITOR COAGULANT COMPLEX 100 UNIT INJ IV SCH ×3 (06:18→21:33)
[2016-12-21 07:50] VITALS: BP 94/52; PULSE 87; RESP 20; TEMP 98; O2SAT 95
[2016-12-21] MEDS: HYDROMORPHONE IV SCH (08:35)
[2016-12-21] MEDS: SODIUM CHLORIDE 0.9% IV SCH (08:35)
[2016-12-21] MEDS: SILVER SULFADIAZINE 1% CR 50 GM JAR TOPICAL SCH ×2 (08:36→21:40)
[2016-12-21] MEDS: MORPHINE SULFATE 60 MG CONTROLLED RELEASE TAB PO SCH ×2 (08:37→21:32)
--- NOTE | 2016-12-21 08:50 | PD.ONC.PN ---
Subjective Subjective Remarks Afebrile overnight. Patient resting in bed, complaining of pain in his left hip and left knee. He also noticed some swelling in his right jaw last night, and believes he is now developing a tooth infection. Objective Data Date Time Temp Pulse Resp B/P Pulse Ox O2 Delivery O2 Flow Rate FiO2 12/21/16 05:30 16 12/21/16 04:00 98.8 90 18 103/58 95 12/21/16 00:00 97.7 87 18 97/55 95 12/20/16 22:34 16 12/20/16 20:00 97.4 95 17 108/57 95 12/20/16 18:02 16 12/20/16 16:54 97.1 93 20 103/57 99 12/20/16 12:26 98.5 92 20 97/62 95 Result Diagram: 12/20/1651912/20/16519 Culture Results Microbiology Date/Time Procedure Status Source Growth 12/20/16 05:20 Aerobic Blood Culture Received Blood Other Pending 12/20/16 05:20 Anaerobic Blood Culture Received Blood Other Pending Administered Medications Medications (Trade) Dose Ordered Sig/Mike Route PRN Reason Start Time Stop Time Status Last Admin Dose Admin Sodium Chloride (NS Flush) 2 ml UNSCH PRN IVF FLUSH AFTER USING IV ACCESS 12/10/16 13:45 12/20/16 09:02 Alprazolam (Xanax) 0.5 mg Q8H PO 12/10/16 17:30 12/21/16 00:57 Morphine Sulfate (Oramorph Sr) 60 mg Q12HR PO 12/10/16 21:00 12/20/16 20:57 Aminocaproic Acid (Amicar) 2,000 mg Q6HR PO 12/10/16 18:45 12/21/16 06:18 Levofloxacin (Levaquin) 750 mg Q24H PO 12/11/16 18:00 12/20/16 17:57 BREAD DISTRIBUTOR Dosage Infused (Pha) 1 Q8HR .XX 12/12/16 07:30 12/21/16 05:30 Miscellaneous Information 1 HS T-DERMAL 12/13/16 21:00 12/16/16 22:02 Nicotine 4 mg 4 mg UNSCH PRN CHEW NICOTINE CRAVINGS 12/13/16 13:30 12/21/16 06:18 Cefepime HCl/ Sodium Chloride (Maxipime Inj/NS Inj) 100 ml @ 200 mls/hr Q8H IV 12/13/16 18:00 12/21/16 00:57 Silver Sulfadiazine (Silvadene 1% Cream (50 Gm)) 1 applic Q12HR TOPICAL 12/16/16 09:00 12/20/16 22:04 Patient Own Medication PT OWN MED: PT OWN M... Q8H IV 12/19/16 01:00 Hold 12/19/16 23:59 Patient Own Medication PT OWN MED: FEIBA 7,500 UN... Q8H IV 12/19/16 05:00 Hold 12/20/16 05:23 Dronabinol 2.5 mg 2.5 mg BID@11,16 PO 12/19/16 16:00 12/20/16 18:02 Gentamicin Sulfate 400 mg/ Sodium Chloride 110 ml @ 100 mls/hr Q24H IV 12/19/16 17:00 12/21/16 18:05 12/20/16 18:46 Sodium Chloride (NS 1000 ml Inj) 1,000 ml @ 84 mls/hr [id number] IV 12/19/16 21:00 12/20/16 21:00 Factor VII (Pha) (Novoseven Rt Inj) 10 mg Q8H IV PUSH 12/20/16 09:00 12/21/16 02:04 Anti-Inhibitor Coagulant Complex (Feiba Nf Inj) 7,500 units Q8H IV 12/20/16 13:00 12/21/16 06:18 Objective Remarks GENERAL: Young man, sitting [facility] in bed [facility]. SKIN: Warm and dry. HEAD: Normocephalic. right jaw swelling. NARES: no bleeding EYES: No injection or drainage. NECK: Supple, trachea midline. CARDIOVASCULAR: Regular rate and rhythm RESPIRATORY: Breath sounds equal bilaterally. No accessory muscle use. GASTROINTESTINAL: Abdomen soft, non-tender, nondistended. EXTREMITIES: No cyanosis, or edema. MUSCULOSKELETAL: chronic joint changes noted. NEUROLOGICAL: awake and alert, normal speech. moving all extremities. 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 Presents with hematoma in the left gluteal muscle group, hemarthrosis in the left knee and pain in the left elbow. Plan 1. Hemophilia A with a high circulating factor VIII inhibitor titer (12.5 [place] units, >5 [place] units is considered high): continue FEIBA and NovoSeven, rotating every four hours. awaiting CBC today 2. Sepsis: multiple + BC, GNR. on Cefepime, Gentamicin and Levaquin ID following. possible port removal Thursday. now with possible tooth infection as well, will ask nursing staff to notify infectious disease 3. Pain control: on hydromorphone BREAD DISTRIBUTOR pump with long-acting morphine sulfate. Attending Statement The exam, history, and the medical decision-making described in the above note were completed with the assistance of the mid-level provider. I reviewed and agree with the findings presented. I attest that I had a [id number] encounter with the patient on the same day, and personally performed and documented my assessment and findings in the medical record. Nallely Brand December 21, 2016 08:49 Jeffrey Willingham MD December 21, 2016 23:55
[2016-12-21 11:50] VITALS: BP 149/58; PULSE 93; RESP 20; TEMP 98; O2SAT 97
--- NOTE | 2016-12-21 11:51 | HHI.PR ---
Subjective Remarks Patient sleeping when I entered the room. c.o left hip and left knee pain c/o some swelling in right jaw last night afebrile overnight Objective Vitals Vital Signs Date Time Temp Pulse Resp B/P Pulse Ox O2 Delivery O2 Flow Rate FiO2 12/21/16 08:35 20 12/21/16 07:50 98.0 87 20 94/52 95 12/21/16 05:30 16 12/21/16 04:00 98.8 90 18 103/58 95 12/21/16 00:00 97.7 87 18 97/55 95 12/20/16 22:34 16 12/20/16 20:00 97.4 95 17 108/57 95 12/20/16 18:02 16 12/20/16 16:54 97.1 93 20 103/57 99 12/20/16 12:26 98.5 92 20 97/62 95 I/O 12/20/16 12/20/16 12/20/16 12/21/16 12/21/16 12/21/16 07:00 15:00 23:00 07:00 15:00 23:00 Intake Total 720 ml 4605 ml 720 ml 480 ml Output Total 700 ml 2125 ml 550 ml 2200 ml Balance 20 ml 2480 ml 170 ml -1720 ml Intake Oral 720 ml 240 ml 720 ml 480 ml IV Total 4365 ml Output Urine Total 700 ml 2125 ml 550 ml 2200 ml Result Diagram: 12/20/16 0520 12/20/16 0520 Imaging Last Impressions Upper Extremity Ultrasound 12/15/16 0000 Signed Impressions: Service Date/Time: Thursday, December 15, 2016 19:08 - CONCLUSION: 1. Negative for deep venous thrombosis. Occlusive and nonocclusive thrombus in the right cephalic vein. Alejandro Neri MD Chest X-Ray 12/11/16 0000 Signed Impressions: Service Date/Time: November 09:04 - CONCLUSION: A faint consolidation within the lingula likely atelectasis with a poor inspiratory effort. Right sided [id number] catheter in excellent position. Garrett Altman MD Upper Extremity CT 12/10/16 0000 Signed Impressions: Service Date/Time: Saturday, December 10, 2016 19:14 - CONCLUSION: 1. Joint effusion. There is no evidence of acute fracture. Scot Flores MD Lower Extremity CT 12/10/16 0000 Signed Impressions: Service Date/Time: Saturday, December 10, 2016 19:04 - CONCLUSION: 1. 7.2 x 4.2 symmetr hematoma in left leads mediastinal Scot Flores MD Abdomen/Pelvis CT 12/10/16 0000 Signed Impressions: Service Date/Time: Saturday, December 10, 2016 18:59 - CONCLUSION: 1. No evidence of acute abdominal or pelvic process. No masses are identified. Scot Flores MD Objective Remarks GENERAL: sleepy, NAD SKIN: Warm and dry. Has ecchymoses in his lateral left thigh. Wound close to port, scab came off, wound with some ointment, clean base, no surrounding cellulitis HEAD: Atraumatic. Normocephalic. No temporal wasting, or tenderness. EYES: [place] conjunctiva. No petechia or hemorrhage. No scleral icterus. No injection or drainage. EARS, NOSE AND THROAT: Nose without bleeding or purulent nasal discharge. No sinus tenderness. No oral lesions noted. No exudate. No oral thrush. Right jaw swelling. NECK: Trachea midline. Supple and not tender, no meningeal signs CARDIOVASCULAR: Regular rate and rhythm. No murmurs, rubs or gallops heard RESPIRATORY: Clear to auscultation. Breath sounds equal bilaterally. No rales , wheezing or rhonchi ABDOMEN: Soft, non-tender, nondistended. Bowel sounds present and normoactive. No guarding. No rebound. No organomegaly. EXTREMITIES: No clubbing, cyanosis, or edema. His L elbow has evidence of effusion, and has very limited ROM due to the pain. His L knee has effusion and severe pain with any ROM. No calf tenderness. Well perfused and warm. BACK: Pain on palpation of his L hip NEUROLOGICAL: Sleepy PSYCHIATRIC: Normal affect, calm and cooperative. LINE: No evidence of infection on the port which is on his L upper chest Procedures none Medications and IVs Current Medications Medications (Trade) Dose Ordered Sig/Mike Route Start Time Stop Time Status Last Admin (NS Flush) 2 ml UNSCH PRN IVF 12/10/16 13:45 12/20/16 09:02 (Xanax) 0.5 mg Q8H PO 12/10/16 17:30 12/21/16 08:36 (Oramorph Sr) 60 mg Q12HR PO 12/10/16 21:00 12/21/16 08:37 (Amicar) 2,000 mg Q6HR PO 12/10/16 18:45 12/21/16 06:18 (Levaquin) 750 mg Q24H PO 12/11/16 18:00 12/20/16 17:57 (Narcan Inj) 0.4 mg UNSCH PRN IV 12/12/16 07:30 (Benadryl) 25 mg Q4H PRN PO 12/12/16 07:30 FIREWORKS ASSEMBLER Dosage Infused (Pha) 1 Q8HR .XX 12/12/16 07:30 12/21/16 05:30 Miscellaneous Information 1 HS T-DERMAL 12/13/16 21:00 12/16/16 22:02 Nicotine 4 mg 4 mg UNSCH PRN CHEW 12/13/16 13:30 12/21/16 08:37 (Maxipime Inj/NS Inj) 100 ml @ 200 mls/hr Q8H IV 12/13/16 18:00 12/21/16 09:02 (Silvadene 1% Cream (50 Gm)) 1 applic Q12HR TOPICAL 12/16/16 09:00 12/21/16 08:36 Patient Own Medication PT OWN MED: PT OWN M... Q8H IV 12/19/16 01:00 Hold 12/19/16 23:59 Patient Own Medication PT OWN MED: FEIBA 7,500 UN... 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 Presents with hematoma in the left gluteal muscle group, hemarthrosis in the left knee and pain in the left elbow. Patient status post transfusion of 2 units of packed red blood cells, H/H trending down last hb 8.3 on 12/20 - CBC pending. (2) Hemarthrosis ICD Code: M25.00 Status: Acute Plan: With joint swelling. His pain involving the left elbow, left knee, left hip. Continue pain control with FIREWORKS ASSEMBLER Dilaudid pump. Left hip posterior thigh hematoma with overlying ecchymosis with limitation in range of motion - stable There are no signs of compartment syndrome. Peripheral pulses are strong and equal. Continue Feiba and Novosen as per hematology. Continue aminocaproic acid. 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 Hematology following. (4) Sepsis ICD Code: A41.9 Status: Acute Plan: Present on admission. Infectious disease consulted on following. Continue IV antibiotics, patient currently on gentamicin, cefepime and Levaquin PO BC reviewed - has different GNR in BC 12/12 from port - BC with Achromobacter 12/13 from port - Klebsiella and Serratia 12/15 from port with GNR and GPC in clusters 12/17 now with GNR 12/18 negative so far 12/20 gram negative siomara. Echo ok Doppler no thrombus where port is Possible Port removal thursday. (5) Poor appetite ICD Code: R63.0 Status: Acute Plan: Continue Marinol (6) Hypotension ICD Code: I95.9 Status: Acute Plan: sp bolus of normal saline on 12/19 bp better - continue to monitor vital signs - continue normal saline for manteinance Iv fluids. Bolus PRN for hypotension. (7) Mandibular swelling ICD Code: R22.0 Status: Acute Plan: Poss tooth infection - Fu ID recommendations. Assessment and Plan GI prophylaxis: Place on PPI. DVT prophylaxis: SCDs, prophylaxis given hemarthrosis. Discharge Planning Continue to monitor in the medical floor. Problem Qualifiers (1) Anemia: Qualified Code: D64.9 - Anemia, unspecified type (2) Sepsis: Qualified Code: A41.9 - Sepsis, due to unspecified organism (3) Hypotension: Qualified Code: I95.9 - Hypotension, unspecified hypotension type Ritesh Mclaughlin MD December 21, 2016 11:51
[2016-12-21] MEDS: DRONABINOL 2.5 MG CAP PO SCH ×2 (12:45→18:03)
[2016-12-21] MEDS: SODIUM CHLOR 0.9% 1000 ML INJ 1,000 ML IV SCH ×2 (14:20→20:40)
[2016-12-21 15:50] VITALS: BP 118/65; PULSE 104; RESP 20; TEMP 98.2; O2SAT 96
[2016-12-21] MEDS: LEVOFLOXACIN 750 MG TAB PO SCH (17:59)
[2016-12-21] MEDS: GENTAMICIN INJ 400 MG in SODIUM CHLORIDE 0.9% INJ 100 ML IV SCH (18:00)
[2016-12-21 18:13] LABS: AUTOMATED NEUTROPHIL # 6.7 TH/MM3 (1.8-7.7); BASOPHIL % 0.4 % (0.0-2.0); EOSINOPHIL # 0.4 TH/MM3 (0-0.4); EOSINOPHIL % 4.8 % (0.0-4.0); HEMATOCRIT 28.2 % (39.0-51.0); HEMO FLAGS DIFF FINAL; LYMPH % 16.2 % (9.0-44.0); LYMPHOCYTE # 1.5 TH/MM3 (1.0-4.8); MEAN CELL VOLUME 81.1 FL (80.0-100.0); MEAN CORPUSCULAR HEMOGLOBIN 26.1 PG (27.0-34.0); MEAN CORPUSCULAR HGB CONC 32.3 % (32.0-36.0); NEUT % 72.6 % (16.0-70.0); PLATELET COUNT 193 TH/MM3 (150-450); RED BLOOD COUNT 3.47 MIL/MM3 (4.50-5.90); RED CELL DISTRIBUTION WIDTH 17.8 % (11.6-17.2); WHITE BLOOD COUNT 9.2 TH/MM3 (4.0-11.0)
[2016-12-21 20:00] VITALS: BP 99/53; PULSE 85; RESP 18; TEMP 97.6; O2SAT 100
[2016-12-21] MEDS: REMOVE OLD PATCH T-DERMAL SCH (21:00)
[2016-12-22] VITALS (7 sets, daily range): BP systolic 90–146; BP diastolic 52–73; PULSE 81–113; RESP 16–18; TEMP 96.7–100.9; O2SAT 95–99
[2016-12-22] MEDS: ALPRAZolam 0.5 MG TAB PO SCH ×3 (01:06→16:32)
[2016-12-22] MEDS: FACTOR VIIA (RECOMB) 5 MG VIAL IV PUSH SCH ×3 (01:07→16:31)
[2016-12-22] MEDS: CEFEPIME INJ 2,000 MG in SODIUM CHLORIDE 0.9% INJ 100 ML IV SCH ×3 (01:19→16:31)
[2016-12-22] MEDS: NICOTINE 4 MG/GUM CHEW PRN ×6 (01:22→22:56)
[2016-12-22] MEDS: SODIUM CHLOR 0.9% 1000 ML INJ 1,000 ML IV SCH ×2 (03:41→13:38)
[2016-12-22] MEDS: SODIUM CHLORIDE 0.9% FLUSH 10 ML FLUSH IVF PRN ×2 (03:56→22:59)
[2016-12-22] MEDS: ANTI-INHIBITOR COAGULANT COMPLEX 100 UNIT INJ IV SCH ×3 (05:55→20:52)
[2016-12-22] MEDS: PCA - TOTAL MG DILAUDID DELIVERED PER SHIFT SCH ×3 (05:55→22:00)
[2016-12-22] MEDS: AMINOCAPROIC ACID 500 MG TAB PO SCH ×4 (05:56→23:59)
[2016-12-22] MEDS: MORPHINE SULFATE 60 MG CONTROLLED RELEASE TAB PO SCH ×2 (09:42→21:11)
[2016-12-22] MEDS: SILVER SULFADIAZINE 1% CR 50 GM JAR TOPICAL SCH ×2 (09:46→21:15)
[2016-12-22] MEDS: DRONABINOL 2.5 MG CAP PO SCH ×2 (09:49→16:39)
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
--- NOTE | 2016-12-22 15:38 | HHI.PR ---
Subjective Remarks c/o left hip and knee pain denies fevers and chills states pain is not very well controlled with dilaudid district administrative assistant pump Patient reports progressive pain along the left maxillary molar tooth which has decayed. Objective Vitals Vital Signs Date Time Temp Pulse Resp B/P Pulse Ox O2 Delivery O2 Flow Rate FiO2 12/22/16 12:00 96.7 81 18 90/53 96 12/22/16 08:00 98.1 91 18 98/53 95 12/22/16 05:55 16 12/22/16 04:00 98.4 85 18 115/59 98 12/22/16 00:00 98.0 81 17 92/53 98 12/21/16 21:42 18 12/21/16 20:00 97.6 85 18 99/53 100 12/21/16 15:50 98.2 104 20 118/65 96 I/O 12/21/16 12/21/16 12/21/16 12/22/16 12/22/16 12/22/16 07:00 15:00 23:00 07:00 15:00 23:00 Intake Total 480 ml 3119 ml 1520 ml 830 ml Output Total 2200 ml 2400 ml 1100 ml 2500 ml Balance -1720 ml 719 ml 420 ml -1670 ml Intake Oral 480 ml 960 ml 720 ml 480 ml IV Total 2159 ml 800 ml 350 ml Output Urine Total 2200 ml 2400 ml 1100 ml 2500 ml # Bowel Movements 1 Result Diagram: 12/21/16 1713 12/20/16 0520 Imaging Last Impressions Upper Extremity Ultrasound 12/15/16 0000 Signed Impressions: Service Date/Time: Thursday, December 15, 2016 19:08 - CONCLUSION: 1. Negative for deep venous thrombosis. Occlusive and nonocclusive thrombus in the right cephalic vein. Alejandro Neri MD Chest X-Ray 12/11/16 0000 Signed Impressions: Service Date/Time: November 09:04 - CONCLUSION: A faint consolidation within the lingula likely atelectasis with a poor inspiratory effort. Right sided [id number] catheter in excellent position. Garrett Altman MD Upper Extremity CT 12/10/16 0000 Signed Impressions: Service Date/Time: Saturday, December 10, 2016 19:14 - CONCLUSION: 1. Joint effusion. There is no evidence of acute fracture. Scot Flores MD Lower Extremity CT 12/10/16 0000 Signed Impressions: Service Date/Time: Saturday, December 10, 2016 19:04 - CONCLUSION: 1. 7.2 x 4.2 symmetr hematoma in left leads mediastinal Scot Flores MD Abdomen/Pelvis CT 12/10/16 0000 Signed Impressions: Service Date/Time: Saturday, December 10, 2016 18:59 - CONCLUSION: 1. No evidence of acute abdominal or pelvic process. No masses are identified. Scot Flores MD Objective Remarks GENERAL: sleepy, NAD SKIN: Warm and dry. Has ecchymoses in his lateral left thigh. Wound close to port, scab came off, wound with some ointment, clean base, no surrounding cellulitis HEAD: Atraumatic. Normocephalic. No temporal wasting, or tenderness. EYES: [place] conjunctiva. No petechia or hemorrhage. No scleral icterus. No injection or drainage. EARS, NOSE AND THROAT: Nose without bleeding or purulent nasal discharge. No sinus tenderness. No oral lesions noted. No exudate. No oral thrush. There is a left maxillary molar which is essentially decayed down to the gums, there is some erythema appreciated along the gum indicating infection. NECK: Trachea midline. Supple and not tender, no meningeal signs CARDIOVASCULAR: Regular rate and rhythm. No murmurs, rubs or gallops heard RESPIRATORY: Clear to auscultation. Breath sounds equal bilaterally. No rales , wheezing or rhonchi ABDOMEN: Soft, non-tender, nondistended. Bowel sounds present and normoactive. No guarding. No rebound. No organomegaly. EXTREMITIES: No clubbing, cyanosis, or edema. His L elbow has evidence of effusion, and has very limited ROM due to the pain. His L knee has effusion and severe pain with any ROM. No calf tenderness. Well perfused and warm. BACK: Pain on palpation of his L hip NEUROLOGICAL: Sleepy PSYCHIATRIC: Normal affect, calm and cooperative. LINE: No evidence of infection on the port which is on his L upper chest Procedures none Medications and IVs Current Medications Medications (Trade) Dose Ordered Sig/Mike Route Start Time Stop Time Status Last Admin (NS Flush) 2 ml UNSCH PRN IVF 12/10/16 13:45 12/22/16 03:56 (Xanax) 0.5 mg Q8H PO 12/10/16 17:30 12/22/16 09:43 (Oramorph Sr) 60 mg Q12HR PO 12/10/16 21:00 12/22/16 09:42 (Amicar) 2,000 mg Q6HR PO 12/10/16 18:45 12/22/16 13:37 (Levaquin) 750 mg Q24H PO 12/11/16 18:00 12/21/16 17:59 (Narcan Inj) 0.4 mg UNSCH PRN IV 12/12/16 07:30 (Benadryl) 25 mg Q4H PRN PO 12/12/16 07:30 GUN CLUB MANAGER Dosage Infused (Pha) 1 Q8HR .XX 12/12/16 07:30 12/22/16 05:55 Miscellaneous Information 1 HS T-DERMAL 12/13/16 21:00 12/16/16 22:02 Nicotine 4 mg 4 mg UNSCH PRN CHEW 12/13/16 13:30 12/22/16 13:37 (Maxipime Inj/NS Inj) 100 ml @ 200 mls/hr Q8H IV 12/13/16 18:00 12/22/16 09:44 (Silvadene 1% Cream (50 Gm)) 1 applic Q12HR TOPICAL 12/16/16 09:00 12/22/16 09:46 Patient Own Medication PT OWN MED: PT OWN M... Q8H IV 12/19/16 01:00 Hold 12/19/16 23:59 Patient Own Medication PT OWN MED: FEIBA 7,500 UN... 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 Presents with hematoma in the left gluteal muscle group, hemarthrosis in the left knee and pain in the left elbow. Patient status post transfusion of 2 units of packed red blood cells, H/H trending down last hb 9.1 on 12/21 - CBC pending. (2) Hemarthrosis ICD Code: M25.00 Status: Acute Plan: With joint swelling. His pain involving the left elbow, left knee, left hip. Continue pain control with GUN CLUB MANAGER Dilaudid pump. Left hip posterior thigh hematoma with overlying ecchymosis with limitation in range of motion - stable There are no signs of compartment syndrome. Peripheral pulses are strong and equal. Continue Feiba and Novosen as per hematology. Continue aminocaproic acid. 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 Hematology following. (4) Sepsis ICD Code: A41.9 Status: Acute Plan: Present on admission. Infectious disease consulted on following. Continue IV antibiotics, patient currently on gentamicin, cefepime and Levaquin PO BC reviewed - has different GNR in BC 12/12 from port - BC with Achromobacter 12/13 from port - Klebsiella and Serratia 12/15 (+) Achromobacter Xyl/dent, Coag negative staph BC 12/17 (+) Achromobacter Xyl/dent, Shira Glabrata BC 12/18 negative to date BC 12/20negative to date BC 12/21 Negative to date Echo ok Doppler no thrombus where port is Possible Port removal thursday. (5) Poor appetite ICD Code: R63.0 Status: Acute Plan: Continue Marinol (6) Hypotension ICD Code: I95.9 Status: Acute Plan: sp bolus of normal saline on 12/19 bp better - continue to monitor vital signs - continue normal saline for manteinance Iv fluids. Bolus PRN for hypotension - BP seems to be baseline int he systolic 100's and low 90's. (7) Tooth infection ICD Code: K04.7 Status: Acute Plan: Oral maxillofacial consultation after chest port removal. Follow-up recommendations. Continue antibiotics as per ID. Assessment and Plan GI prophylaxis: Place on PPI. DVT prophylaxis: SCDs, prophylaxis given hemarthrosis. Discharge Planning Continue to monitor in the medical floor. Problem Qualifiers (1) Anemia: Qualified Code: D64.9 - Anemia, unspecified type (2) Sepsis: Qualified Code: A41.9 - Sepsis, due to unspecified organism (3) Hypotension: Qualified Code: I95.9 - Hypotension, unspecified hypotension type Ritesh Mclaughlin MD December 22, 2016 15:38
[2016-12-22] MEDS: LEVOFLOXACIN 750 MG TAB PO SCH (16:32)
--- NOTE | 2016-12-22 16:46 | MB ---
cc: JUJU ALICIA M.D., ZAFAR MD DATE OF CONSULTATION: 12/22/2016. REASON FOR CONSULTATION: Removal of infected Infusaport. CONSULTING PHYSICIAN: Dr. Leno Adam. HISTORY OF PRESENT ILLNESS: This is a 26-year-old gentleman who had an Infusaport placed in another state. It is infected and he needs it removed. Unfortunately, he has hemophilia A and will require a transfusion prior to removal of the port. I have already discussed with Dr. Adam. He is making arrangements to have the proper factors given to the patient in primary fashion for surgery at 10:30 tomorrow. This has all been discussed with the patient. PAST MEDICAL HISTORY: All reviewed in the chart and discussed with Dr. Adam. He has had this Infusaport. There is some question if he has been self-accessing it. He has had positive cultures. 1. He has hemophilia. 2. History of ulcers in the past. 3. He has had problems with hematomas. 4. He had a fasciotomy to his femur and his right arm. 5. No neurologic or cardiovascular problems o respiratory issues. 6. History of the ulcers. 7. Occasionally some nausea and vomiting. 8. He has had numerous Infusaport placed with the most recent one in the right subclavian. PHYSICAL EXAMINATION: GENERAL: On physical exam, he has a pleasant cooperative 26-year-old gentleman who was sleeping. He was awakened easily. He appears interested in his medical condition. He is somewhat concerned. HEAD, EYES, EARS, NOSE, THROAT: He has poor dentition. He has a possible infected tooth. NECK: The neck is supple. CHEST: Clear. He has an Infusaport on the right side and accessed. He has tattoos on his chest. He has scars in the left and right infraclavicular areas where he has had previous ports and some below his rib cage as well. These were apparently placed when he was a child. ABDOMEN: Abdomen soft. EXTREMITIES: He moves all extremities well. NEUROLOGIC: He is alert and oriented. He was sleepy because he just woke up. LABORATORY DATA: His white count is 9, hemoglobin 9 and hematocrit of 28. Chem-7 essentially normal. Toxicology showed benzodiazepines positive and cannabinoids. Coags are noted. PTT is 70. ASSESSMENT: Hemophilia A with right side Infusaport that needs removal because of positive blood cultures. I discussed in detail with Dr. Adam. I have called the operating room and they are going to have time available at approximately 10:30. This was related to Dr. Adam so his factors can be given in a timely fashion prior to surgical intervention. The patient states he has always done well with surgery that he has had. MD ANGEL Farrar/GAURANG /1:31 PM /4:37 PM NISHA
[2016-12-22] MEDS: HYDROMORPHONE IV SCH (19:24)
[2016-12-22] MEDS: SODIUM CHLORIDE 0.9% IV SCH (19:24)
[2016-12-22] MEDS: MICAFUNGIN INJ 100 MG in SODIUM CHLORIDE 0.9% INJ 100 ML IV SCH (19:47)
[2016-12-22] MEDS: REMOVE OLD PATCH T-DERMAL SCH (21:07)
[2016-12-23] VITALS: BP 92/55; PULSE 107; RESP 18; TEMP 100.2; O2SAT 94
[2016-12-23] MEDS: ALPRAZolam 0.5 MG TAB PO SCH ×3 (01:04→17:36)
[2016-12-23] MEDS: FACTOR VIIA (RECOMB) 5 MG VIAL IV PUSH SCH ×3 (01:09→17:00)
[2016-12-23] MEDS: NICOTINE 4 MG/GUM CHEW PRN ×10 (01:28→23:23)
[2016-12-23] MEDS: CEFEPIME INJ 2,000 MG in SODIUM CHLORIDE 0.9% INJ 100 ML IV SCH (01:34)
[2016-12-23] MEDS: SODIUM CHLORIDE 0.9% FLUSH 10 ML FLUSH IVF PRN ×2 (03:37→04:50)
[2016-12-23] MEDS: SODIUM CHLOR 0.9% 1000 ML INJ 1,000 ML IV SCH ×2 (04:33→19:52)
[2016-12-23] MEDS ORDERED: SODIUM CHLORID 0.9% 500 ML IV PRN (04:45)
[2016-12-23] MEDS ORDERED: POVIDONE IODINE 5% (ANTISEPSIS KIT) 4 APPLICATIONS EACH NARE PRN (04:45)
[2016-12-23] MEDS ORDERED: LACTATED RINGER'S 1000 ML IV PRN (04:45)
[2016-12-23] MEDS ORDERED: CHLORHEXIDINE GLUCONATE 2 % 1 PACK (2 CLOTHS) TOPICAL PRN (04:45)
[2016-12-23 05:00] VITALS: BP 98/55; PULSE 86; RESP 16; TEMP 100; O2SAT 97
[2016-12-23 05:29] LABS: BASOPHIL % 0.4 % (0.0-2.0); EOSINOPHIL # 0.3 TH/MM3 (0-0.4); EOSINOPHIL % 2.6 % (0.0-4.0); HEMATOCRIT 25.8 % (39.0-51.0); HEMO FLAGS DIFF FINAL; LYMPH % 11.5 % (9.0-44.0); LYMPHOCYTE # 1.4 TH/MM3 (1.0-4.8); MEAN CELL VOLUME 80.3 FL (80.0-100.0); MEAN CORPUSCULAR HEMOGLOBIN 26.4 PG (27.0-34.0); MEAN CORPUSCULAR HGB CONC 32.8 % (32.0-36.0); MONO % 6.3 % (0.0-8.0); NEUT % 79.2 % (16.0-70.0); PLATELET COUNT 143 TH/MM3 (150-450); RED BLOOD COUNT 3.21 MIL/MM3 (4.50-5.90); RED CELL DISTRIBUTION WIDTH 17.1 % (11.6-17.2); WHITE BLOOD COUNT 12.6 TH/MM3 (4.0-11.0)
[2016-12-23] MEDS: ANTI-INHIBITOR COAGULANT COMPLEX 100 UNIT INJ IV SCH ×3 (05:38→21:16)
[2016-12-23] MEDS: AMINOCAPROIC ACID 500 MG TAB PO SCH ×4 (05:38→23:32)
[2016-12-23] MEDS: PCA - TOTAL MG DILAUDID DELIVERED PER SHIFT SCH ×3 (05:44→21:15)
[2016-12-23 08:00] VITALS: BP 108/64; PULSE 75; RESP 16; TEMP 98.9; O2SAT 97
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
[2016-12-23] MEDS: SILVER SULFADIAZINE 1% CR 50 GM JAR TOPICAL SCH ×2 (09:00→21:00)
[2016-12-23] MEDS: MORPHINE SULFATE 60 MG CONTROLLED RELEASE TAB PO SCH ×2 (09:52→21:26)
--- NOTE | 2016-12-23 10:11 | HHI.IDPN ---
Subjective Subjective Remarks Notes reviewed D/W Dr Adam previous days All BC with different bacteria, mostly with Achromobacter and now with prabhu glabrata Going to OR today for removal of port Pain is the same Temps occ low grade BC reviewed - has different GNR in BC 12/12 from port - BC with Achromobacter 12/13 from port - Klebsiella and Serratia 12/15 from port with Achromobacter and GPC in clusters BC 12/17 now with Achromobacter and Prabhu glabrata BC 12/18 negative so far BC 12/20 GNR BC 12/21 negative so far Echo ok Doppler no thrombus where port is Antibiotics Cefepime Levaquin Micafungin Lines Port Past Medical History Severe hemophilia a Chronic pain Anxiety disorder Problem with recurrent hemarthrosis Previous port infection, and removal Past Surgical History Mihljy-o-Yrji placement x 2, last one place about 1 year ago History compartment syndrome History of ORIF of left femoral neck fracture History of left knee surgery for infected knee Allergies: Coded Allergies: Nonsteroidal Anti-Inflammatory Agts (Verified Adverse Reaction, Severe, bleeding, 11/18/16) Objective . Vital Signs Date Time Temp Pulse Resp B/P Pulse Ox O2 Delivery O2 Flow Rate FiO2 12/23/16 05:44 16 12/23/16 05:00 100.0 86 16 98/55 97 12/23/16 00:00 100.2 107 18 92/55 94 12/22/16 22:00 18 12/22/16 20:36 100.9 113 18 146/73 98 12/22/16 20:00 97.7 94 16 93/52 99 12/22/16 19:24 16 12/22/16 16:37 98.0 93 18 98/56 99 12/22/16 14:00 18 12/22/16 12:00 96.7 81 18 90/53 96 12/22/16 12/22/16 12/23/16 14:59 22:59 06:59 Intake Total 720 ml 480 ml 2900 ml Output Total 2200 ml 1200 ml 600 ml Balance -1480 ml -720 ml 2300 ml Intake Oral 720 ml 480 ml IV Total 2900 ml Output Urine Total 2200 ml 1200 ml 600 ml . Laboratory Tests Test 12/21/16 12/23/16 17:13 04:40 White Blood Count 9.2 TH/MM3 12.6 TH/MM3 Red Blood Count 3.47 MIL/MM3 3.21 MIL/MM3 Hemoglobin 9.1 GM/DL 8.5 GM/DL Hematocrit 28.2 % 25.8 % Mean Corpuscular Volume 81.1 FL 80.3 FL Mean Corpuscular Hemoglobin 26.1 PG 26.4 PG Mean Corpuscular Hemoglobin 32.3 % 32.8 % Concent Red Cell Distribution Width 17.8 % 17.1 % Platelet Count 193 TH/MM3 143 TH/MM3 Mean Platelet Volume 8.2 FL 7.5 FL Neutrophils (%) (Auto) 72.6 % 79.2 % Lymphocytes (%) (Auto) 16.2 % 11.5 % Monocytes (%) (Auto) 6.0 % 6.3 % Eosinophils (%) (Auto) 4.8 % 2.6 % Basophils (%) (Auto) 0.4 % 0.4 % Neutrophils # (Auto) 6.7 TH/MM3 10.0 TH/MM3 Lymphocytes # (Auto) 1.5 TH/MM3 1.4 TH/MM3 Monocytes # (Auto) 0.6 TH/MM3 0.8 TH/MM3 Eosinophils # (Auto) 0.4 TH/MM3 0.3 TH/MM3 Basophils # (Auto) 0.0 TH/MM3 0.0 TH/MM3 CBC Comment DIFF FINAL DIFF FINAL Differential Comment Microbiology Date/Time Procedure Status Source Growth 12/21/16 17:13 Aerobic Blood Culture - Preliminary Resulted Blood Other NO GROWTH IN 1 DAY 12/21/16 17:13 Anaerobic Blood Culture - Preliminary Resulted Blood Other NO GROWTH IN 1 DAY Imaging Last Impressions Chest X-Ray 12/11/16 0000 Signed Impressions: Service Date/Time: November 09:04 - CONCLUSION: A faint consolidation within the lingula likely atelectasis with a poor inspiratory effort. Right sided Tfhsbk-a-Lrvc catheter in excellent position. Garrett Altman MD Upper Extremity CT 12/10/16 0000 Signed Impressions: Service Date/Time: Saturday, December 10, 2016 19:14 - CONCLUSION: 1. Joint effusion. There is no evidence of acute fracture. Scot Flores MD Lower Extremity CT 12/10/16 0000 Signed Impressions: Service Date/Time: Saturday, December 10, 2016 19:04 - CONCLUSION: 1. 7.2 x 4.2 symmetr hematoma in left leads mediastinal Scot Flores MD Abdomen/Pelvis CT 12/10/16 0000 Signed Impressions: Service Date/Time: Saturday, December 10, 2016 18:59 - CONCLUSION: 1. No evidence of acute abdominal or pelvic process. No masses are identified. Scot Flores MD Physical Exam GENERAL: sleepy, NAD SKIN: Warm and dry. Has ecchymoses in his lateral left thigh. Wound close to port, scab came off, wound with some ointment, clean base, no surrounding cellulitis HEAD: Atraumatic. Normocephalic. No temporal wasting, or tenderness. EYES: Coggon conjunctiva. No petechia or hemorrhage. No scleral icterus. No injection or drainage. EARS, NOSE AND THROAT: Nose without bleeding or purulent nasal discharge. No sinus tenderness. No oral lesions noted. No exudate. No oral thrush. NECK: Trachea midline. Supple and not tender, no meningeal signs CARDIOVASCULAR: Regular rate and rhythm. No murmurs, rubs or gallops heard RESPIRATORY: Clear to auscultation. Breath sounds equal bilaterally. No rales , wheezing or rhonchi ABDOMEN: Soft, non-tender, nondistended. Bowel sounds present and normoactive. No guarding. No rebound. No organomegaly. EXTREMITIES: No clubbing, cyanosis, or edema. His L elbow has evidence of effusion, and has very limited ROM due to the pain. His L knee has effusion and severe pain with any ROM. No calf tenderness. Well perfused and warm. BACK: Pain on palpation of his L buttocks NEUROLOGICAL: Sleepy PSYCHIATRIC: Normal affect, calm and cooperative. LINE: No evidence of infection on the port which is on his L upper chest Assessment & Plan Remarks IMPRESSION Sepsis on presentation and has different organisms from his port - has port infection - concerns would be septic joints - he has effusions in his L elbow, and L knee, and also has L buttock hematoma; could be seeded Hemophilia with recurrent spontaneous hemarthrosis, and other bleeding Chronic pain, and chronic narcotic use Fevers, temps better RECOMMENDATION Change cefepime to Zosyn Continue Micafungin Continue Levaquin Give short course of Gentamicin 1 BC today from port Follow-up BC once port removed Port removal today Follow C/S Follow temps Monitor progress Dimayuga,Kamini G MD December 23, 2016 10:10
[2016-12-23] MEDS ORDERED: ceFAZolin INJ 1,000 MG VIAL ONE (10:51)
[2016-12-23] MEDS ORDERED: SODIUM CHLORIDE 0.9% 20 ML VIAL ONE (10:51)
[2016-12-23] MEDS ORDERED: BUPIVACAINE/EPINEPHRINE 0.5% PF 30 ML VIAL ONE (10:51)
[2016-12-23] MEDS ORDERED: LIDOCAINE 1%/EPINEPHrine 1:100,000 SOLN 50 ML VIAL ONE (10:51)
[2016-12-23] MEDS ORDERED: VANCOMYCIN 500 MG VIAL ONE (10:51)
[2016-12-23] MEDS ORDERED: SODIUM BICARBONATE 8.4% INJ 50 MEQ/50 ML SYR ONE (10:51)
[2016-12-23] MEDS ORDERED: FAMOTIDINE 20 MG/2 ML VIAL ONE (10:58)
[2016-12-23] MEDS ORDERED: MIDAZOLAM HCL 2 MG/2 ML VIAL ONE (10:58)
[2016-12-23] MEDS ORDERED: HYDROmorphone HCL PF 2 MG/ML VIAL ONE (10:58)
[2016-12-23] MEDS: PIPERACIL-TAZO 4.5 GM PREMIX 100 ML IV SCH ×3 (11:00→23:24)
[2016-12-23] MEDS ORDERED: KETAMINE HCL 500 MG/5 ML VIAL IV ONE (12:00)
[2016-12-23] MEDS ORDERED: PROPOFOL 200 MG/20 ML AMP IV ONE (12:00)
[2016-12-23] MEDS ORDERED: DO NOT ADM ANY ANTICOAGULANT DRUGS PRN (12:00)
[2016-12-23] MEDS ORDERED: ONDANSETRON HCL 4 MG/2 ML VIAL IV PUSH ONE (12:00)
[2016-12-23] MEDS ORDERED: fentaNYL CITRATE 250 MCG/5 ML AMP ONE (12:02)
--- NOTE | 2016-12-23 12:02 | HHI.PR ---
cc: Alejandro Locke MD Immediate Post Op Note Procedure Date: December 23, 2016 Pre Op Diagnosis: (1) Sepsis (2) Hemophilia A (3) Port catheter in place (4) Infection of venous access port Post Op Diagnosis: (1) Hemophilia A (2) Port catheter in place (3) Infection of venous access port Surgeon: Alejandro Locke Parent Trainer(s): see or records Procedure: Removal Of Arepaq-n-Dvck Complications: None Anesthesia: TIVA Drains: None IVF Patient to: PACU Patient Condition: Good Implant/Devices: SEE IMPLANT LOG (if applicable) Date/Time of Procedure: SEE SURGICAL CARE RECORD Alejandro Locke MD December 23, 2016 12:02
[2016-12-23] MEDS ORDERED: *HYDROmorphone PF 1 MG VIAL PERIprocedural Use ONLY ONE ×2 (12:21→12:27)
[2016-12-23] MEDS ORDERED: HYDROmorphone HCL PF 4 MG/ML VIAL IV PUSH ONE (12:45)
[2016-12-23] MEDS: DRONABINOL 2.5 MG CAP PO SCH ×2 (13:42→17:38)
[2016-12-23 16:00] VITALS: BP 97/55; PULSE 84; RESP 18; TEMP 98; O2SAT 96
[2016-12-23] MEDS: LEVOFLOXACIN 750 MG TAB PO SCH (17:43)
--- NOTE | 2016-12-23 18:50 | HHI.PR ---
Subjective Remarks Deferred entry - patient seen earlier at 9:35 AM Patient c/o pain on hipd and knees Has been having low grade temps w a tmax of 100.9 poor appetite Objective Vitals Vital Signs Date Time Temp Pulse Resp B/P Pulse Ox O2 Delivery O2 Flow Rate FiO2 12/23/16 16:00 98.0 84 18 97/55 96 12/23/16 14:00 18 12/23/16 12:45 80 20 93/50 91 Room Air 12/23/16 12:45 98.0 80 20 93/50 91 Room Air 12/23/16 12:30 84 20 98/50 98 Room Air 12/23/16 12:15 80 20 96/48 99 Nasal Cannula 2 12/23/16 11:57 98.0 82 20 95/50 95 Simple Mask 6 12/23/16 08:00 98.9 75 16 108/64 97 12/23/16 05:44 16 12/23/16 05:00 100.0 86 16 98/55 97 12/23/16 00:00 100.2 107 18 92/55 94 12/22/16 22:00 18 12/22/16 20:36 100.9 113 18 146/73 98 12/22/16 20:00 97.7 94 16 93/52 99 12/22/16 19:24 16 I/O 12/22/16 12/22/16 12/22/16 12/23/16 12/23/16 12/23/16 06:59 14:59 22:59 06:59 14:59 22:59 Intake Total 830 ml 720 ml 480 ml 2900 ml 900 ml Output Total 2500 ml 2200 ml 1200 ml 600 ml 560 ml Balance -1670 ml -1480 ml -720 ml 2300 ml 340 ml Intake Oral 480 ml 720 ml 480 ml IV Total 350 ml 2900 ml 250 ml Other 650 ml Output Urine Total 2500 ml 2200 ml 1200 ml 600 ml 550 ml Estimated Blood Loss 10 ml # Voids 1 Result Diagram: 12/23/16 0440 12/20/16 0520 Imaging Last Impressions Upper Extremity Ultrasound 12/15/16 0000 Signed Impressions: Service Date/Time: Thursday, December 15, 2016 19:08 - CONCLUSION: 1. Negative for deep venous thrombosis. Occlusive and nonocclusive thrombus in the right cephalic vein. Alejandro Neri MD Chest X-Ray 12/11/16 0000 Signed Impressions: Service Date/Time: November 09:04 - CONCLUSION: A faint consolidation within the lingula likely atelectasis with a poor inspiratory effort. Right sided Qvgafr-y-Arvt catheter in excellent position. Garrett Altman MD Upper Extremity CT 12/10/16 0000 Signed Impressions: Service Date/Time: Saturday, December 10, 2016 19:14 - CONCLUSION: 1. Joint effusion. There is no evidence of acute fracture. Scot Flores MD Lower Extremity CT 12/10/16 0000 Signed Impressions: Service Date/Time: Saturday, December 10, 2016 19:04 - CONCLUSION: 1. 7.2 x 4.2 symmetr hematoma in left leads mediastinal Scot Flores MD Abdomen/Pelvis CT 12/10/16 0000 Signed Impressions: Service Date/Time: Saturday, December 10, 2016 18:59 - CONCLUSION: 1. No evidence of acute abdominal or pelvic process. No masses are identified. Scot Flores MD Objective Remarks GENERAL: sleepy, NAD SKIN: Warm and dry. Has ecchymoses in his lateral left thigh. Wound close to port, scab came off, wound with some ointment, clean base, no surrounding cellulitis HEAD: Atraumatic. Normocephalic. No temporal wasting, or tenderness. EYES: Marcus conjunctiva. No petechia or hemorrhage. No scleral icterus. No injection or drainage. EARS, NOSE AND THROAT: Nose without bleeding or purulent nasal discharge. No sinus tenderness. No oral lesions noted. No exudate. No oral thrush. There is a left maxillary molar which is essentially decayed down to the gums, there is some erythema appreciated along the gum indicating infection. NECK: Trachea midline. Supple and not tender, no meningeal signs CARDIOVASCULAR: Regular rate and rhythm. No murmurs, rubs or gallops heard RESPIRATORY: Clear to auscultation. Breath sounds equal bilaterally. No rales , wheezing or rhonchi ABDOMEN: Soft, non-tender, nondistended. Bowel sounds present and normoactive. No guarding. No rebound. No organomegaly. EXTREMITIES: No clubbing, cyanosis, or edema. His L elbow has evidence of effusion, and has very limited ROM due to the pain. His L knee has effusion and severe pain with any ROM. No calf tenderness. Well perfused and warm. BACK: Pain on palpation of his L hip NEUROLOGICAL: Sleepy PSYCHIATRIC: Normal affect, calm and cooperative. LINE: No evidence of infection on the port which is on his L upper chest Procedures none Medications and IVs Current Medications Medications (Trade) Dose Ordered Sig/Mike Route Start Time Stop Time Status Last Admin (NS Flush) 2 ml UNSCH PRN IVF 12/10/16 13:45 12/23/16 04:50 (Xanax) 0.5 mg Q8H PO 12/10/16 17:30 12/23/16 17:36 (Oramorph Sr) 60 mg Q12HR PO 12/10/16 21:00 12/23/16 09:52 (Amicar) 2,000 mg Q6HR PO 12/10/16 18:45 12/23/16 17:38 (Levaquin) 750 mg Q24H PO 12/11/16 18:00 12/23/16 17:43 (Narcan Inj) 0.4 mg UNSCH PRN IV 12/12/16 07:30 (Benadryl) 25 mg Q4H PRN PO 12/12/16 07:30 GUM MACHINE FILLER Dosage Infused (Pha) 1 Q8HR .XX 12/12/16 07:30 12/23/16 14:00 Miscellaneous Information 1 HS T-DERMAL 12/13/16 21:00 12/16/16 22:02 (Nicotine Gum) 4 mg UNSCH PRN CHEW 12/13/16 13:30 12/23/16 18:07 (Silvadene 1% Cream (50 Gm)) 1 applic Q12HR TOPICAL 12/16/16 09:00 12/22/16 21:15 Patient Own Medication PT OWN MED: PT OWN M... Q8H IV 12/19/16 01:00 Hold 12/19/16 23:59 Patient Own Medication PT OWN MED: FEIBA 7,500 UN... Q8H IV 12/19/16 05:00 Hold 12/20/16 05:23 Dronabinol 2.5 mg 2.5 mg BID@11,16 PO 12/19/16 16:00 12/23/16 17:38 (NS 1000 ml Inj) 1,000 ml @ 84 mls/hr [id number] IV 12/19/16 21:00 12/23/16 04:33 (Novoseven Rt Inj) 10 mg Q8H IV PUSH 12/20/16 09:00 12/23/16 17:00 Anti-Inhibitor Coagulant Complex 7500 units 7,500 units Q8H IV 12/20/16 13:00 12/23/16 14:39 Micafungin Sodium 100 mg/Sodium Chloride 100 ml @ 100 mls/hr Q24H IV 12/22/16 18:00 12/22/16 19:47 (Zosyn 4.5 Gm Premix) 100 ml @ 200 mls/hr Q6H IV 12/23/16 11:00 12/23/16 17:35 Miscellaneous Information ALL NURSING DEPARTME... 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 Presents with hematoma in the left gluteal muscle group, hemarthrosis in the left knee and pain in the left elbow. Patient status post transfusion of 2 units of packed red blood cells, H/H trending down last hb 8.5 on 12/23 (2) Hemarthrosis ICD Code: M25.00 Status: Acute Plan: With joint swelling. His pain involving the left elbow, left knee, left hip. Continue pain control with GUM MACHINE FILLER Dilaudid pump. Left hip posterior thigh hematoma with overlying ecchymosis with limitation in range of motion - stable There are no signs of compartment syndrome. Peripheral pulses are strong and equal. Continue Feiba and Novosen as per hematology. Continue aminocaproic acid. 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 Hematology following. (4) Sepsis ICD Code: A41.9 Status: Acute Plan: Present on admission. Infectious disease consulted on following. Continue IV antibiotics, patient currently on gentamicin, cefepime and Levaquin PO BC reviewed - has different GNR in 12/12 from port - BC with Achromobacter 12/13 from port - Klebsiella and Serratia 12/15 (+) Achromobacter Xyl/dent, Coag negative staph BC 12/17 (+) Achromobacter Xyl/dent, Shira Glabrata BC 12/18 negative to date BC 12/20negative to date BC 12/21 Negative to date Echo ok Doppler no thrombus where port is Chest port removal today 12/23. (5) Poor appetite ICD Code: R63.0 Status: Acute Plan: Continue Marinol. (6) Hypotension ICD Code: I95.9 Status: Acute Plan: sp bolus of normal saline on 12/19 bp better - continue to monitor vital signs - continue normal saline for manteinance Iv fluids. Bolus PRN for hypotension - BP seems to be baseline int he systolic 100's and low 90's. Continue Iv fluids (7) Tooth infection ICD Code: K04.7 Status: Acute Plan: Oral maxillofacial consultation after chest port removal. Follow-up recommendations. Continue antibiotics as per ID. Assessment and Plan GI prophylaxis: Place on PPI. DVT prophylaxis: SCDs, prophylaxis given hemarthrosis. Discharge Planning Continue to monitor in the medical floor. Problem Qualifiers (1) Anemia: Qualified Code: D64.9 - Anemia, unspecified type (2) Sepsis: Qualified Code: A41.9 - Sepsis, due to unspecified organism (3) Hypotension: Qualified Code: I95.9 - Hypotension, unspecified hypotension type Ritesh Mclaughlin MD December 23, 2016 18:49
[2016-12-23] MEDS: MICAFUNGIN INJ 100 MG in SODIUM CHLORIDE 0.9% INJ 100 ML IV SCH (19:44)
[2016-12-23] MEDS ORDERED: ACETAMINOPHEN 325 MG TAB PO ONE (20:15)
[2016-12-23 20:45] VITALS: BP 98/50; PULSE 82; RESP 16; TEMP 98.8; O2SAT 96
[2016-12-23] MEDS: REMOVE OLD PATCH T-DERMAL SCH (21:00)
[2016-12-23] MEDS: HYDROMORPHONE IV SCH (21:14)
[2016-12-23] MEDS: SODIUM CHLORIDE 0.9% IV SCH (21:14)
--- NOTE | 2016-12-23 23:00 | MP ---
cc: JUJU LOCKE ZAFAR MD DATE OF SURGERY 12/23/2016 PREOPERATIVE DIAGNOSIS Infected right Xbkgxf-P-Coaj with hemophilia A POSTOPERATIVE DIAGNOSIS Infected right Bxzcrm-P-Onyj with hemophilia A PROCEDURE Removal infected Pqqkte-C-Chqm. ANESTHESIA TIVA. SURGEON Dr. Isaías Locke INDICATIONS This is a pleasant 26-year-old gentleman who has hemophilia A. He has an Gvzkmi-Z-Celw that is infected and Dr. Adam has asked me to remove the Gzcjlp-E-Yagx. He has given him Factor VII in preparation for the above surgery. PROCEDURE IN DETAIL The patient is in the operating room. After anesthesia, his right shoulder was prepped with Betadine. We identify the port on the infraclavicular area on the right side. He has a skin opening that is draining purulent material. We ellipse this out, dissect down to the Hcnoer-L-Kssc which is completely removed. The tip is cut and sent to culture. The area is then irrigated with saline and Betadine. We then close the deep layer with 3-0 Vicryl and skin with 4-0 Vicryl. Steri-Strips were applied. It is noted he has a small burn on the medial aspect of his upper chest wall where he spilled some coffee a few days ago. This was dressed with Xeroform dressing. The patient returned to the recovery room with no immediate postop complications. He had minimal bleeding. Juju Locke MD JROSELINE/ /11:57 AM /10:57 PM
[2016-12-24] VITALS: BP 93/54; PULSE 66; RESP 16; TEMP 98.5; O2SAT 95
[2016-12-24] MEDS: NICOTINE 4 MG/GUM CHEW PRN ×9 (01:04→23:26)
[2016-12-24] MEDS: ALPRAZolam 0.5 MG TAB PO SCH ×3 (01:05→17:34)
[2016-12-24] MEDS: FACTOR VIIA (RECOMB) 5 MG VIAL IV PUSH SCH ×3 (01:06→17:33)
[2016-12-24] MEDS: SODIUM CHLORIDE 0.9% FLUSH 10 ML FLUSH IVF PRN (01:19)
[2016-12-24 04:00] VITALS: BP 94/53; PULSE 88; RESP 16; TEMP 97.3; O2SAT 95
[2016-12-24] MEDS: PIPERACIL-TAZO 4.5 GM PREMIX 100 ML IV SCH ×4 (05:16→23:20)
[2016-12-24] MEDS: ANTI-INHIBITOR COAGULANT COMPLEX 100 UNIT INJ IV SCH ×3 (05:17→21:06)
[2016-12-24] MEDS: AMINOCAPROIC ACID 500 MG TAB PO SCH ×4 (05:51→23:20)
[2016-12-24] MEDS: PCA - TOTAL MG DILAUDID DELIVERED PER SHIFT SCH ×3 (05:54→20:57)
--- NOTE | 2016-12-24 07:25 | PD.ONC.PN ---
Subjective Subjective Remarks Patient reports pain along the right chest wall and right shoulder, he tells me he felt sore after undergoing the port removal yesterday. Has not had fevers over the past 24 hours. Objective Data Date Time Temp Pulse Resp B/P Pulse Ox O2 Delivery O2 Flow Rate FiO2 12/24/16 05:54 18 12/24/16 04:00 97.3 88 16 94/53 95 12/24/16 00:00 98.5 66 16 93/54 95 12/23/16 21:15 16 12/23/16 21:14 16 12/23/16 20:45 98.8 82 16 98/50 96 12/23/16 16:00 98.0 84 18 97/55 96 12/23/16 14:00 18 12/23/16 12:45 80 20 93/50 91 Room Air 12/23/16 12:45 98.0 80 20 93/50 91 Room Air 12/23/16 12:30 84 20 98/50 98 Room Air 12/23/16 12:15 80 20 96/48 99 Nasal Cannula 2 12/23/16 11:57 98.0 82 20 95/50 95 Simple Mask 6 12/23/16 08:00 98.9 75 16 108/64 97 12/24/16 12/24/16 12/24/16 07:00 15:00 23:00 Intake Total 2540 ml 160 ml Output Total 3400 ml Balance -860 ml 160 ml Result Diagram: 12/23/16 0440 12/20/16 0520 Culture Results Microbiology Date/Time Procedure Status Source Growth 12/21/16 17:13 Aerobic Blood Culture - Preliminary Resulted Blood Other NO GROWTH IN 2 DAYS 12/21/16 17:13 Anaerobic Blood Culture - Preliminary Resulted Blood Other NO GROWTH IN 2 DAYS 12/23/16 11:31 Gram Stain - Final Resulted Wound Other 12/23/16 11:31 Wound Culture Resulted Wound Other Pending 12/23/16 11:40 Acid Fast Stain Received Wound Other Pending 12/23/16 11:40 Mycobacterial Culture Received Wound Other Pending 12/23/16 11:40 Fungal Smear - Final Resulted Wound Other NO FUNGAL ELEMENTS SEEN. 12/23/16 11:40 Fungal Culture Resulted Wound Other Pending 12/23/16 11:40 Gram Stain - Final Resulted Wound Other 12/23/16 11:40 Wound Culture Resulted Wound Other Pending 12/23/16 11:40 Acid Fast Stain Received Wound Other Pending 12/23/16 11:40 Mycobacterial Culture Received Wound Other Pending 12/23/16 11:40 Fungal Smear Received Wound Other Pending 12/23/16 11:40 Fungal Culture Received Wound Other Pending Administered Medications Medications (Trade) Dose Ordered Sig/Mike Route PRN Reason Start Time Stop Time Status Last Admin Dose Admin Sodium Chloride (NS Flush) 2 ml UNSCH PRN IVF FLUSH AFTER USING IV ACCESS 12/10/16 13:45 12/24/16 01:19 Alprazolam (Xanax) 0.5 mg Q8H PO 12/10/16 17:30 12/24/16 01:05 Morphine Sulfate (Oramorph Sr) 60 mg Q12HR PO 12/10/16 21:00 12/23/16 21:26 Aminocaproic Acid (Amicar) 2,000 mg Q6HR PO 12/10/16 18:45 12/24/16 05:51 Levofloxacin (Levaquin) 750 mg Q24H PO 12/11/16 18:00 12/23/16 17:43 RESEARCH CHIEF ENGINEER Dosage Infused (Pha) 1 Q8HR .XX 12/12/16 07:30 12/24/16 05:54 Miscellaneous Information 1 HS T-DERMAL 12/13/16 21:00 12/16/16 22:02 Nicotine (Nicotine Gum) 4 mg UNSCH PRN CHEW NICOTINE CRAVINGS 12/13/16 13:30 12/24/16 05:26 Silver Sulfadiazine (Silvadene 1% Cream (50 Gm)) 1 applic Q12HR TOPICAL 12/16/16 09:00 12/22/16 21:15 Patient Own Medication PT OWN MED: PT OWN M... Q8H IV 12/19/16 01:00 Hold 12/19/16 23:59 Patient Own Medication PT OWN MED: FEIBA 7,500 UN... Q8H IV 12/19/16 05:00 Hold 12/20/16 05:23 Dronabinol 2.5 mg 2.5 mg BID@11,16 PO 12/19/16 16:00 12/23/16 17:38 Sodium Chloride (NS 1000 ml Inj) 1,000 ml @ 84 mls/hr [id number] IV 12/19/16 21:00 12/23/16 19:52 Factor VII (Pha) (Novoseven Rt Inj) 10 mg Q8H IV PUSH 12/20/16 09:00 12/24/16 01:06 Anti-Inhibitor Coagulant Complex 7500 units 7,500 units Q8H IV 12/20/16 13:00 12/24/16 05:17 Piperacillin Sod/ Tazobactam Sod (Zosyn 4.5 Gm Premix) 100 ml @ 200 mls/hr Q6H IV 12/23/16 11:00 12/24/16 05:16 Objective Remarks GENERAL PHYSICAL APPEARANCE: Mr. Gonzalez is a young man, he appears comfortable, sitting up in bed. HEENT: Head atraumatic, normocephalic. Conjunctive are pale. Sclerae are anicteric. Oral exam - no pharyngeal erythema. No blood noted in the oral cavity, no blood noted in the nasal passages. There is a left maxillary molar which is essentially decayed down to the gums, there is some erythema appreciated along the gum indicating infection. NECK EXAM: Palpable cervical lymphadenopathy. Chest: Interval removal of infusion port along right side of the chest, surgical dressing is clean, no bruising no hematoma or overt bleeding appreciated. Musculo skeletal: Contractures of the joints of the upper extremities and knees , decreased range of motion. RESPIRATORY EXAM: Good air movement bilaterally, specifically over the bases as well. CARDIOVASCULAR: Tachycardiac, regular, S1-S2. No obvious murmurs, rubs or gallops. ABDOMINAL EXAM: Thin belly, soft and nontender, nondistended. No palpable organ enlargement. CERTIFIED TECHNICIAN: Generally weak but no localized motor or sensory deficits. 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 Presents with hematoma in the left gluteal muscle group, hemarthrosis in the left knee and pain in the left elbow. Plan 1. Hemophilia A with a high circulating factor VIII inhibitor titer (12.5 Roebling units, >5 Roebling units is considered high): continue FEIBA and NovoSeven, rotating every four hours. 2. Sepsis: multiple GNR and now Shira Glabrata. Started Micafungin. Infusion port DC'd on 12/23/2016. Afebrile for the past 24 hours, continue monitoring fevers and blood cultures. 3. Tooth decay and tooth infection: [facility] surgery has been asked to re-evaluate the patient for tooth extraction. 4. Pain control: On hydromorphone RESEARCH CHIEF ENGINEER pump. His pain is well-controlled on this. Leno Adam MD December 24, 2016 07:25
[2016-12-24 07:50] VITALS: BP 96/56; PULSE 84; RESP 20; TEMP 97.2; O2SAT 94
[2016-12-24] MEDS: SILVER SULFADIAZINE 1% CR 50 GM JAR TOPICAL SCH ×2 (09:00→20:53)
[2016-12-24] MEDS: SODIUM CHLOR 0.9% 1000 ML INJ 1,000 ML IV SCH ×2 (09:15→20:45)
[2016-12-24] MEDS: MORPHINE SULFATE 60 MG CONTROLLED RELEASE TAB PO SCH ×2 (09:28→20:46)
[2016-12-24 11:50] VITALS: BP 110/58; PULSE 84; RESP 20; TEMP 97.3; O2SAT 93
[2016-12-24] MEDS: DRONABINOL 2.5 MG CAP PO SCH ×2 (13:17→17:33)
--- NOTE | 2016-12-24 15:13 | HHI.PR ---
Subjective Subjective Notes Sleeping Refusing to have prior port site examined Objective Vitals/I&O Vital Signs Date Time Temp Pulse Resp B/P Pulse Ox O2 Delivery O2 Flow Rate FiO2 12/24/16 14:00 18 12/24/16 11:50 97.3 84 110/58 93 12/23/16 12:45 Room Air 12/23/16 12:15 2 Labs Date/Time Procedure Status Source Growth 12/24/16 08:36 Aerobic Blood Culture Received Blood Peripheral Pending 12/24/16 08:36 Anaerobic Blood Culture Received Blood Peripheral Pending 12/23/16 11:40 Gram Stain - Final Resulted Wound Other 12/23/16 11:40 Wound Culture - Preliminary Resulted Wound Other IMMATURE GROWTH - REINCUBATE 12/23/16 11:40 Fungal Smear - Final Resulted Wound Other NO FUNGAL ELEMENTS SEEN. 12/23/16 11:40 Fungal Culture Resulted Wound Other Pending 12/23/16 11:40 Acid Fast Stain - Final Resulted Wound Other NO ACID FAST BACILLI SEEN 12/23/16 11:40 Mycobacterial Culture Resulted Wound Other Pending 12/21/16 17:13 Aerobic Blood Culture - Preliminary Resulted Blood Other NO GROWTH IN 3 DAYS 12/21/16 17:13 Anaerobic Blood Culture - Preliminary Resulted Blood Other NO GROWTH IN 3 DAYS 12/20/16 05:20 Aerobic Blood Culture - Final Resulted Blood Other Achromobacter Xyl/[place] 12/20/16 05:20 Anaerobic Blood Culture - Preliminary Resulted Blood Other NO GROWTH IN 4 DAYS Cardiovascular: Regular Lungs: Clear Abdomen: Non-distended, Non-tender Extremities: No edema Narrative Exam RIGHT chest: prior port site with dressing in place that is dry---refused to have removed A/P Assessment and Plan 26 year old male with hemophilia; POD1 removal of infected Infusaport -Remove dressing when patient will allow; replace with dry 4x4 and secure with paper tape -Afebrile > 24 hours -Antibiotics per ID -Hematology following -GS will sign off; please call if needed Helen Joy December 24, 2016 15:13
[2016-12-24 15:50] VITALS: BP 108/51; PULSE 76; RESP 20; TEMP 98.2; O2SAT 94
--- NOTE | 2016-12-24 17:16 | HHI.PR ---
Subjective Remarks Deferred entry - patient seen earlier at 10:30 AM Patient c/o some pain on right side of chest which started after port removal denies fevers/chills No further fevers over past 24 hrs Objective Vitals Vital Signs Date Time Temp Pulse Resp B/P Pulse Ox O2 Delivery O2 Flow Rate FiO2 12/24/16 14:00 18 12/24/16 11:50 97.3 84 20 110/58 93 12/24/16 07:50 97.2 84 20 96/56 94 12/24/16 05:54 18 12/24/16 04:00 97.3 88 16 94/53 95 12/24/16 00:00 98.5 66 16 93/54 95 12/23/16 21:15 16 12/23/16 21:14 16 12/23/16 20:45 98.8 82 16 98/50 96 I/O 12/23/16 12/23/16 12/23/16 12/24/16 12/24/16 12/24/16 07:00 15:00 23:00 07:00 15:00 23:00 Intake Total 900 ml 900 ml 1870 ml 2540 ml 160 ml Output Total 600 ml 560 ml 2000 ml 3400 ml Balance 300 ml 340 ml -130 ml -860 ml 160 ml Intake Oral 1080 ml 960 ml IV Total 900 ml 250 ml 790 ml 1580 ml 160 ml Other 650 ml Output Urine Total 600 ml 550 ml 2000 ml 3400 ml Estimated Blood Loss 10 ml # Voids 1 Result Diagram: 12/23/16 0440 12/20/16 0520 Imaging Last Impressions Upper Extremity Ultrasound 12/15/16 0000 Signed Impressions: Service Date/Time: Thursday, December 15, 2016 19:08 - CONCLUSION: 1. Negative for deep venous thrombosis. Occlusive and nonocclusive thrombus in the right cephalic vein. Alejandro Neri MD Chest X-Ray 12/11/16 0000 Signed Impressions: Service Date/Time: November 09:04 - CONCLUSION: A faint consolidation within the lingula likely atelectasis with a poor inspiratory effort. Right sided Kqwmtb-[id number]-Faxu catheter in excellent position. Garrett Altman MD Upper Extremity CT 12/10/16 0000 Signed Impressions: Service Date/Time: Saturday, December 10, 2016 19:14 - CONCLUSION: 1. Joint effusion. There is no evidence of acute fracture. Scot Flores MD Lower Extremity CT 12/10/16 0000 Signed Impressions: Service Date/Time: Saturday, December 10, 2016 19:04 - CONCLUSION: 1. 7.2 x 4.2 symmetr hematoma in left leads mediastinal Scot Flores MD Abdomen/Pelvis CT 12/10/16 0000 Signed Impressions: Service Date/Time: Saturday, December 10, 2016 18:59 - CONCLUSION: 1. No evidence of acute abdominal or pelvic process. No masses are identified. Scot Flores MD Objective Remarks GENERAL: sleepy, NAD SKIN: Warm and dry. Has ecchymoses in his lateral left thigh. Wound close to port, scab came off, wound with some ointment, clean base, no surrounding cellulitis HEAD: Atraumatic. Normocephalic. No temporal wasting, or tenderness. EYES: [place] conjunctiva. No petechia or hemorrhage. No scleral icterus. No injection or drainage. EARS, NOSE AND THROAT: Nose without bleeding or purulent nasal discharge. No sinus tenderness. No oral lesions noted. No exudate. No oral thrush. There is a left maxillary molar which is essentially decayed down to the gums, there is some erythema appreciated along the gum indicating infection. NECK: Trachea midline. Supple and not tender, no meningeal signs CARDIOVASCULAR: Regular rate and rhythm. No murmurs, rubs or gallops heard RESPIRATORY: Clear to auscultation. Breath sounds equal bilaterally. No rales , wheezing or rhonchi ABDOMEN: Soft, non-tender, nondistended. Bowel sounds present and normoactive. No guarding. No rebound. No organomegaly. EXTREMITIES: No clubbing, cyanosis, or edema. His L elbow has evidence of effusion, and has very limited ROM due to the pain. His L knee has effusion and severe pain with any ROM. No calf tenderness. Well perfused and warm. BACK: Pain on palpation of his L hip NEUROLOGICAL: Sleepy PSYCHIATRIC: Normal affect, calm and cooperative. LINE: No evidence of infection on the port which is on his L upper chest Procedures none Medications and IVs Current Medications Medications (Trade) Dose Ordered Sig/Mike Route Start Time Stop Time Status Last Admin (NS Flush) 2 ml UNSCH PRN IVF 12/10/16 13:45 12/24/16 01:19 (Xanax) 0.5 mg Q8H PO 12/10/16 17:30 12/24/16 09:28 (Oramorph Sr) 60 mg Q12HR PO 12/10/16 21:00 12/24/16 09:28 (Amicar) 2,000 mg Q6HR PO 12/10/16 18:45 12/24/16 13:16 (Levaquin) 750 mg Q24H PO 12/11/16 18:00 12/23/16 17:43 (Narcan Inj) 0.4 mg UNSCH PRN IV 12/12/16 07:30 (Benadryl) 25 mg Q4H PRN PO 12/12/16 07:30 PAPER MACHINE OPERATOR Dosage Infused (Pha) 1 Q8HR .XX 12/12/16 07:30 12/24/16 14:00 Miscellaneous Information 1 HS T-DERMAL 12/13/16 21:00 12/16/16 22:02 (Nicotine Gum) 4 mg UNSCH PRN CHEW 12/13/16 13:30 12/24/16 15:18 (Silvadene 1% Cream (50 Gm)) 1 applic Q12HR TOPICAL 12/16/16 09:00 12/22/16 21:15 Patient Own Medication PT OWN MED: PT OWN M... Q8H IV 12/19/16 01:00 Hold 12/19/16 23:59 Patient Own Medication PT OWN MED: FEIBA 7,500 UN... Q8H IV 12/19/16 05:00 Hold 12/20/16 05:23 Dronabinol 2.5 mg 2.5 mg BID@11,16 PO 12/19/16 16:00 12/24/16 13:17 (NS 1000 ml Inj) 1,000 ml @ 84 mls/hr [id number] IV 12/19/16 21:00 12/24/16 09:15 (Novoseven Rt Inj) 10 mg Q8H IV PUSH 12/20/16 09:00 12/24/16 09:28 Anti-Inhibitor Coagulant Complex 7500 units 7,500 units Q8H IV 12/20/16 13:00 12/24/16 13:12 Piperacillin Sod/ Tazobactam Sod 100 ml @ 200 mls/hr Q6H IV 12/23/16 11:00 12/24/16 09:30 (Mycamine Inj/NS Inj) 100 ml @ 100 mls/hr Q24H IV 12/24/16 20:00 Urinary Catheter: No Vascular Central Line Catheter: No A/P Problem List: (1) Anemia ICD Code: D64.9 Status: Acute Plan: 26-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 Presents with hematoma in the left gluteal muscle group, hemarthrosis in the left knee and pain in the left elbow. Patient status post transfusion of 2 units of packed red blood cells, H/H trending down last hb 8.5 on 12/23 (2) Hemarthrosis ICD Code: M25.00 Status: Acute Plan: With joint swelling. His pain involving the left elbow, left knee, left hip. Continue pain control with PAPER MACHINE OPERATOR Dilaudid pump. Left hip posterior thigh hematoma with overlying ecchymosis with limitation in range of motion - stable There are no signs of compartment syndrome. Peripheral pulses are strong and equal. Continue Feiba and Novosen as per hematology. Continue aminocaproic acid. 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 Hematology following. (4) Sepsis ICD Code: A41.9 Status: Acute Plan: Present on admission. Infectious disease consulted on following. Continue IV antibiotics, patient currently on gentamicin, cefepime and Levaquin PO BC reviewed - has different GNR in BC 12/12 from port - BC with Achromobacter 12/13 from port - Klebsiella and Serratia 12/15 (+) Achromobacter Xyl/dent, Coag negative staph BC 12/17 (+) Achromobacter Xyl/dent, Shira Glabrata BC 12/18 negative to date BC 12/20negative to date BC 12/21 Negative to date Echo ok Doppler no thrombus where port is Chest port removal today 12/23. (5) Poor appetite ICD Code: R63.0 Status: Acute Plan: Continue Marinol. (6) Hypotension ICD Code: I95.9 Status: Acute Plan: sp bolus of normal saline on 12/19 bp better - continue to monitor vital signs - continue normal saline for manteinance Iv fluids. Bolus PRN for hypotension - BP seems to be baseline int he systolic 100's and low 90's. Continue Iv fluids (7) Tooth infection ICD Code: K04.7 Status: Acute Plan: Oral maxillofacial consultation after chest port removal. Follow-up recommendations. Continue antibiotics as per ID. Assessment and Plan GI prophylaxis: Place on PPI. DVT prophylaxis: SCDs, prophylaxis given hemarthrosis. Discharge Planning Continue to monitor in the medical floor. Problem Qualifiers (1) Anemia: Qualified Code: D64.9 - Anemia, unspecified type (2) Sepsis: Qualified Code: A41.9 - Sepsis, due to unspecified organism (3) Hypotension: Qualified Code: I95.9 - Hypotension, unspecified hypotension type Ritesh Mclaughlin MD December 24, 2016 17:16
[2016-12-24] MEDS: LEVOFLOXACIN 750 MG TAB PO SCH (17:33)
[2016-12-24 20:00] VITALS: BP 118/59; PULSE 92; RESP 16; TEMP 97.8; O2SAT 96
[2016-12-24] MEDS: HYDROMORPHONE IV SCH (20:44)
[2016-12-24] MEDS: SODIUM CHLORIDE 0.9% IV SCH (20:44)
[2016-12-24] MEDS: MICAFUNGIN INJ 100 MG in SODIUM CHLORIDE 0.9% INJ 100 ML IV SCH (20:48)
[2016-12-24] MEDS: REMOVE OLD PATCH T-DERMAL SCH (20:52)
[2016-12-25] VITALS: BP 116/65; PULSE 77; RESP 16; TEMP 98.1; O2SAT 96
[2016-12-25] MEDS: ALPRAZolam 0.5 MG TAB PO SCH ×4 (00:30→20:41)
[2016-12-25] MEDS: FACTOR VIIA (RECOMB) 5 MG VIAL IV PUSH SCH (00:30)
[2016-12-25] MEDS: NICOTINE 4 MG/GUM CHEW PRN ×9 (00:36→20:42)
[2016-12-25] MEDS: PIPERACIL-TAZO 4.5 GM PREMIX 100 ML IV SCH ×3 (04:18→16:45)
[2016-12-25 04:30] VITALS: BP 118/63; PULSE 81; RESP 18; TEMP 98.3; O2SAT 97
[2016-12-25] MEDS: AMINOCAPROIC ACID 500 MG TAB PO SCH ×4 (05:22→23:28)
[2016-12-25] MEDS: ANTI-INHIBITOR COAGULANT COMPLEX 100 UNIT INJ IV SCH (05:22)
[2016-12-25] MEDS: PCA - TOTAL MG DILAUDID DELIVERED PER SHIFT SCH ×3 (05:35→22:00)
[2016-12-25 07:31] LABS: AUTOMATED NEUTROPHIL # 5.3 TH/MM3 (1.8-7.7); BASOPHIL # 0.1 TH/MM3 (0-0.2); BASOPHIL % 0.6 % (0.0-2.0); EOSINOPHIL # 0.6 TH/MM3 (0-0.4); EOSINOPHIL % 6.7 % (0.0-4.0); HEMATOCRIT 28.2 % (39.0-51.0); HEMO FLAGS DIFF FINAL; LYMPH % 21.5 % (9.0-44.0); LYMPHOCYTE # 1.8 TH/MM3 (1.0-4.8); MEAN CELL VOLUME 79.7 FL (80.0-100.0); MEAN CORPUSCULAR HEMOGLOBIN 26.6 PG (27.0-34.0); MEAN CORPUSCULAR HGB CONC 33.4 % (32.0-36.0); MONO % 7.8 % (0.0-8.0); NEUT % 63.4 % (16.0-70.0); PLATELET COUNT 192 TH/MM3 (150-450); RED BLOOD COUNT 3.54 MIL/MM3 (4.50-5.90); RED CELL DISTRIBUTION WIDTH 18.1 % (11.6-17.2); WHITE BLOOD COUNT 8.4 TH/MM3 (4.0-11.0)
--- NOTE | 2016-12-25 07:41 | PD.ONC.PN ---
Subjective Subjective Remarks Patient reports pain in his right shoulder and right biceps, he tells me he thinks he is bleeding in the shoulder and in the biceps. Tells me his pain is not well controlled and would like for me to adjust the BUSINESS PROCESS EXPERT pump. He has not had fevers over the past 48 hours. His appetite is poor. He remains bedbound. Awaits evaluation by oral surgery. Objective Data Date Time Temp Pulse Resp B/P Pulse Ox O2 Delivery O2 Flow Rate FiO2 12/25/16 05:35 12 12/25/16 04:30 98.3 81 18 118/63 97 12/25/16 00:00 98.1 77 16 116/65 96 12/24/16 20:57 16 12/24/16 20:44 15 12/24/16 20:00 97.8 92 16 118/59 96 12/24/16 15:50 98.2 76 20 108/51 94 12/24/16 14:00 18 12/24/16 11:50 97.3 84 20 110/58 93 12/24/16 07:50 97.2 84 20 96/56 94 12/25/16 12/25/16 12/25/16 07:00 15:00 23:00 Intake Total 480 ml Output Total 1200 ml Balance -720 ml Result Diagram: 12/25/16 0635 Laboratory Results Laboratory Tests Test 12/25/16 06:35 White Blood Count 8.4 TH/MM3 Red Blood Count 3.54 MIL/MM3 Hemoglobin 9.4 GM/DL Hematocrit 28.2 % Mean Corpuscular Volume 79.7 FL Mean Corpuscular Hemoglobin 26.6 PG Mean Corpuscular Hemoglobin 33.4 % Concent Red Cell Distribution Width 18.1 % Platelet Count 192 TH/MM3 Mean Platelet Volume 7.8 FL Neutrophils (%) (Auto) 63.4 % Lymphocytes (%) (Auto) 21.5 % Monocytes (%) (Auto) 7.8 % Eosinophils (%) (Auto) 6.7 % Basophils (%) (Auto) 0.6 % Neutrophils # (Auto) 5.3 TH/MM3 Lymphocytes # (Auto) 1.8 TH/MM3 Monocytes # (Auto) 0.7 TH/MM3 Eosinophils # (Auto) 0.6 TH/MM3 Basophils # (Auto) 0.1 TH/MM3 CBC Comment DIFF FINAL Differential Comment Culture Results Microbiology Date/Time Procedure Status Source Growth 12/23/16 11:31 Gram Stain - Final Resulted Wound Other 12/23/16 11:31 Wound Culture - Preliminary Resulted Gram Negative Twan 12/23/16 11:40 Acid Fast Stain - Final Resulted Wound Other NO ACID FAST BACILLI SEEN 12/23/16 11:40 Mycobacterial Culture Resulted Wound Other Pending 12/23/16 11:40 Fungal Smear - Final Resulted Wound Other NO FUNGAL ELEMENTS SEEN. 12/23/16 11:40 Fungal Culture Resulted Wound Other Pending 12/23/16 11:40 Gram Stain - Final Resulted Wound Other 12/23/16 11:40 Wound Culture - Preliminary Resulted Wound Other IMMATURE GROWTH - REINCUBATE 12/23/16 11:40 Acid Fast Stain - Final Resulted Wound Other NO ACID FAST BACILLI SEEN 12/23/16 11:40 Mycobacterial Culture Resulted Wound Other Pending 12/23/16 11:40 Fungal Smear - Final Resulted Wound Other 12/23/16 11:40 Fungal Culture Resulted Wound Other Pending 12/24/16 08:30 Aerobic Blood Culture Received Blood Other Pending 12/24/16 08:30 Anaerobic Blood Culture Received Blood Other Pending 12/24/16 08:36 Aerobic Blood Culture Received Blood Peripheral Pending 12/24/16 08:36 Anaerobic Blood Culture Received Blood Peripheral Pending Administered Medications Medications (Trade) Dose Ordered Sig/Mike Route PRN Reason Start Time Stop Time Status Last Admin Dose Admin Sodium Chloride (NS Flush) 2 ml UNSCH PRN IVF FLUSH AFTER USING IV ACCESS 12/10/16 13:45 12/24/16 01:19 Alprazolam (Xanax) 0.5 mg Q8H PO 12/10/16 17:30 12/25/16 00:30 Morphine Sulfate (Oramorph Sr) 60 mg Q12HR PO 12/10/16 21:00 12/24/16 20:46 Aminocaproic Acid (Amicar) 2,000 mg Q6HR PO 12/10/16 18:45 12/25/16 05:22 Levofloxacin (Levaquin) 750 mg Q24H PO 12/11/16 18:00 12/24/16 17:33 BUSINESS PROCESS EXPERT Dosage Infused (Pha) 1 Q8HR .XX 12/12/16 07:30 12/25/16 05:35 Miscellaneous Information 1 HS T-DERMAL 12/13/16 21:00 12/16/16 22:02 Nicotine (Nicotine Gum) 4 mg UNSCH PRN CHEW NICOTINE CRAVINGS 12/13/16 13:30 12/25/16 05:22 Silver Sulfadiazine (Silvadene 1% Cream (50 Gm)) 1 applic Q12HR TOPICAL 12/16/16 09:00 12/22/16 21:15 Dronabinol 2.5 mg 2.5 mg BID@11,16 PO 12/19/16 16:00 12/24/16 17:33 Sodium Chloride (NS 1000 ml Inj) 1,000 ml @ 84 mls/hr [id number] IV 12/19/16 21:00 12/24/16 20:45 Factor VII (Pha) (Novoseven Rt Inj) 10 mg Q8H IV PUSH 12/20/16 09:00 Hold 12/25/16 00:30 Anti-Inhibitor Coagulant Complex 7500 units 7,500 units Q8H IV 12/20/16 13:00 Hold 12/25/16 05:22 Piperacillin Sod/ Tazobactam Sod 100 ml @ 200 mls/hr Q6H IV 12/23/16 11:00 12/25/16 04:18 Micafungin Sodium/ Sodium Chloride (Mycamine Inj/NS Inj) 100 ml @ 100 mls/hr Q24H IV 12/24/16 20:00 12/24/16 20:48 Objective Remarks GENERAL PHYSICAL APPEARANCE: Mr. Gonzalez is a young man, he appears comfortable, sitting up in bed. HEENT: Head atraumatic, normocephalic. Conjunctive are pale. Sclerae are anicteric. Oral exam - no pharyngeal erythema. No blood noted in the oral cavity, no blood noted in the nasal passages. There is a left maxillary molar which is essentially decayed down to the gums, there is some erythema appreciated along the gum indicating infection. NECK EXAM: Palpable cervical lymphadenopathy. Chest: Interval removal of infusion port along right side of the chest, surgical dressing is clean, no bruising no hematoma or overt bleeding appreciated. Musculo skeletal: Contractures of the joints of the upper extremities and knees , decreased range of motion. RESPIRATORY EXAM: Good air movement bilaterally, specifically over the bases as well. CARDIOVASCULAR: Tachycardiac, regular, S1-S2. No obvious murmurs, rubs or gallops. ABDOMINAL EXAM: Thin belly, soft and nontender, nondistended. No palpable organ enlargement. TRIPE WASHER: Generally weak but no localized motor or sensory deficits. Muscle skeletal: Swelling and tenderness noted in the right biceps, tenderness noted of the right shoulder. 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 Presents with hematoma in the left gluteal muscle group, hemarthrosis in the left knee and pain in the left elbow. Plan 1. Hemophilia A with a high circulating factor VIII inhibitor titer (12.5 Nichols units, >5 Nichols units is considered high): continue FEIBA and NovoSeven. Because he clinically appears to have bled I've increased the dosing of NovoSeven to every 4 hours and will monitor him, hopefully we should be able to control his bleed within the next 24 hours at which point I will adjust the dosing of NovoSeven to every 8 hours. 2. Sepsis: multiple GNR and now Shira Glabrata. Started Micafungin. Infusion port DC'd on 12/23/2016. Afebrile for the past 24 hours, continue monitoring fevers and blood cultures. 3. Tooth decay and tooth infection: F surgery has been asked to re-evaluate the patient for tooth extraction. 4. Pain control: On hydromorphone BUSINESS PROCESS EXPERT pump. I have adjusted the dosing by decreasing the interval between dosing from 15 to10 minutes, I've also increases hourly limited from 2.5 to 3.5 mg. Leno Adam MD Dec 25, 2016 07:41
[2016-12-25 07:50] VITALS: BP 124/71; PULSE 64; RESP 20; TEMP 97.5; O2SAT 98
[2016-12-25 07:55] LABS: ALT (GPT) 18 U/L (12-78); ANION GAP 8 MEQ/L (5-15); AST (GOT) 7 U/L (15-37); BICARBONATE 29.4 MEQ/L (21.0-32.0); CHLORIDE 101 MEQ/L (98-107); GLOMERULAR FILTRATION RATE 218 ML/MIN (>89); MAGNESIUM 2.2 MG/DL (1.5-2.5); POTASSIUM 3.5 MEQ/L (3.5-5.1); SODIUM (NA) 138 MEQ/L (136-145)
[2016-12-25 07:57] LABS: ALKALINE PHOSPHATASE 90 U/L (45-117); BLOOD UREA NITROGEN 5 MG/DL (7-18); TOTAL BILIRUBIN ADULT 1.1 MG/DL (0.2-1.0)
[2016-12-25] MEDS ORDERED: FACTOR VIIA (RECOMB) 5 MG VIAL IV PUSH SCH (08:00)
[2016-12-25] MEDS: SODIUM CHLOR 0.9% 1000 ML INJ 1,000 ML IV SCH ×2 (08:05→20:00)
[2016-12-25] MEDS: MORPHINE SULFATE 60 MG CONTROLLED RELEASE TAB PO SCH ×2 (08:48→20:43)
[2016-12-25] MEDS: SODIUM CHLORIDE 0.9% FLUSH 10 ML FLUSH IVF PRN (08:49)
[2016-12-25] MEDS: [UNRECOGNIZED DRUG - OTHER] IV SCH ×4 (08:49→23:32)
[2016-12-25] MEDS: SILVER SULFADIAZINE 1% CR 50 GM JAR TOPICAL SCH ×2 (08:50→23:15)
[2016-12-25] MEDS ORDERED: [UNRECOGNIZED DRUG - OTHER] IV SCH (09:00)
[2016-12-25] MEDS: DRONABINOL 2.5 MG CAP PO SCH ×2 (11:47→16:45)
[2016-12-25 11:50] VITALS: BP 108/71; PULSE 80; RESP 20; TEMP 97.3; O2SAT 98
[2016-12-25] MEDS: [UNRECOGNIZED DRUG - OTHER] IV SCH ×2 (13:07→23:33)
[2016-12-25] MEDS: SODIUM CHLORIDE 0.9% IV SCH (14:34)
[2016-12-25] MEDS: HYDROMORPHONE IV SCH (14:34)
--- NOTE | 2016-12-25 15:29 | HHI.IDPN ---
Subjective Subjective Remarks Notes reviewed D/W Dr Adam previous days All BC with different bacteria, mostly with Achromobacter and now with prabhu glabrata S/P removal of port - C/S with GNR x 2, ID pending Pain is the same Temps occ low grade BC reviewed - has different GNR in BC 12/12 from port - BC with Achromobacter 12/13 from port - Klebsiella and Serratia 12/15 from port with Achromobacter and GPC in clusters BC 12/17 now with Achromobacter and Prabhu glabrata BC 12/18 negative so far BC 12/20 GNR BC 12/21 negative so far Echo ok Doppler no thrombus where port is To be evaluate by oral surgery Antibiotics Zosyn Levaquin Micafungin Lines Port Past Medical History Severe hemophilia a Chronic pain Anxiety disorder Problem with recurrent hemarthrosis Previous port infection, and removal Past Surgical History Xypeqv-x-Gqab placement x 2, last one place about 1 year ago History compartment syndrome History of ORIF of left femoral neck fracture History of left knee surgery for infected knee Allergies: Coded Allergies: Nonsteroidal Anti-Inflammatory Agts (Verified Adverse Reaction, Severe, bleeding, 11/18/16) Objective . Vital Signs Date Time Temp Pulse Resp B/P Pulse Ox O2 Delivery O2 Flow Rate FiO2 12/25/16 14:34 16 12/25/16 14:00 16 12/25/16 11:50 97.3 80 20 108/71 98 12/25/16 07:50 97.5 64 20 124/71 98 12/25/16 05:35 12 12/25/16 04:30 98.3 81 18 118/63 97 12/25/16 00:00 98.1 77 16 116/65 96 12/24/16 20:57 16 12/24/16 20:44 15 12/24/16 20:00 97.8 92 16 118/59 96 12/24/16 15:50 98.2 76 20 108/51 94 12/24/16 12/24/16 12/25/16 15:00 23:00 07:00 Intake Total 1240 ml 720 ml 480 ml Output Total 4100 ml 1100 ml 1200 ml Balance -2860 ml -380 ml -720 ml Intake Oral 1080 ml 720 ml 480 ml IV Total 160 ml Output Urine Total 4100 ml 1100 ml 1200 ml # Bowel Movements 0 . Laboratory Tests Test 12/25/16 06:35 White Blood Count 8.4 TH/MM3 Red Blood Count 3.54 MIL/MM3 Hemoglobin 9.4 GM/DL Hematocrit 28.2 % Mean Corpuscular Volume 79.7 FL Mean Corpuscular Hemoglobin 26.6 PG Mean Corpuscular Hemoglobin 33.4 % Concent Red Cell Distribution Width 18.1 % Platelet Count 192 TH/MM3 Mean Platelet Volume 7.8 FL Neutrophils (%) (Auto) 63.4 % Lymphocytes (%) (Auto) 21.5 % Monocytes (%) (Auto) 7.8 % Eosinophils (%) (Auto) 6.7 % Basophils (%) (Auto) 0.6 % Neutrophils # (Auto) 5.3 TH/MM3 Lymphocytes # (Auto) 1.8 TH/MM3 Monocytes # (Auto) 0.7 TH/MM3 Eosinophils # (Auto) 0.6 TH/MM3 Basophils # (Auto) 0.1 TH/MM3 CBC Comment DIFF FINAL Differential Comment Laboratory Tests Test 12/25/16 06:35 Sodium Level 138 MEQ/L Potassium Level 3.5 MEQ/L Chloride Level 101 MEQ/L Carbon Dioxide Level 29.4 MEQ/L Anion Gap 8 MEQ/L Blood Urea Nitrogen 5 MG/DL Creatinine 0.47 MG/DL Estimat Glomerular Filtration 218 ML/MIN Rate Random Glucose 95 MG/DL Calcium Level 9.2 MG/DL Phosphorus Level 3.1 MG/DL Magnesium Level 2.2 MG/DL Total Bilirubin 1.1 MG/DL Aspartate Amino Transf 7 U/L (AST/SGOT) Alanine Aminotransferase 18 U/L (ALT/SGPT) Alkaline Phosphatase 90 U/L Total Protein 6.6 GM/DL Albumin 2.6 GM/DL Microbiology Date/Time Procedure Status Source Growth 12/23/16 11:31 Gram Stain - Final Resulted Wound Other 12/23/16 11:31 Wound Culture - Preliminary Resulted Gram Negative Twan 12/23/16 11:40 Acid Fast Stain - Final Resulted Wound Other NO ACID FAST BACILLI SEEN 12/23/16 11:40 Mycobacterial Culture Resulted Wound Other Pending 12/23/16 11:40 Fungal Smear - Final Resulted Wound Other NO FUNGAL ELEMENTS SEEN. 12/23/16 11:40 Fungal Culture Resulted Wound Other Pending 12/23/16 11:40 Gram Stain - Final Resulted Wound Other 12/23/16 11:40 Wound Culture - Preliminary Resulted Gram Negative Twan 12/23/16 11:40 Acid Fast Stain - Final Resulted Wound Other NO ACID FAST BACILLI SEEN 12/23/16 11:40 Mycobacterial Culture Resulted Wound Other Pending 12/23/16 11:40 Fungal Smear - Final Resulted Wound Other 12/23/16 11:40 Fungal Culture Resulted Wound Other Pending 12/24/16 08:30 Aerobic Blood Culture - Preliminary Resulted Blood Other NO GROWTH IN 1 DAY 12/24/16 08:30 Anaerobic Blood Culture - Preliminary Resulted Blood Other NO GROWTH IN 1 DAY 12/24/16 08:36 Aerobic Blood Culture - Preliminary Resulted Blood Peripheral NO GROWTH IN 1 DAY 12/24/16 08:36 Anaerobic Blood Culture - Preliminary Resulted Blood Peripheral NO GROWTH IN 1 DAY Imaging Last Impressions Chest X-Ray 12/11/16 0000 Signed Impressions: Service Date/Time: November 09:04 - CONCLUSION: A faint consolidation within the lingula likely atelectasis with a poor inspiratory effort. Right sided Oxliaf-o-Qocw catheter in excellent position. Garrett Altman MD Upper Extremity CT 12/10/16 0000 Signed Impressions: Service Date/Time: Saturday, December 10, 2016 19:14 - CONCLUSION: 1. Joint effusion. There is no evidence of acute fracture. Scot Flores MD Lower Extremity CT 12/10/16 0000 Signed Impressions: Service Date/Time: Saturday, December 10, 2016 19:04 - CONCLUSION: 1. 7.2 x 4.2 symmetr hematoma in left leads mediastinal Scot Flores MD Abdomen/Pelvis CT 12/10/16 0000 Signed Impressions: Service Date/Time: Saturday, December 10, 2016 18:59 - CONCLUSION: 1. No evidence of acute abdominal or pelvic process. No masses are identified. Scot Flores MD Physical Exam GENERAL: sleepy, NAD SKIN: Warm and dry. Has ecchymoses in his lateral left thigh. Wound close to port, scab came off, wound with some ointment, clean base, no surrounding cellulitis HEAD: Atraumatic. Normocephalic. No temporal wasting, or tenderness. EYES: [place] conjunctiva. No petechia or hemorrhage. No scleral icterus. No injection or drainage. EARS, NOSE AND THROAT: Nose without bleeding or purulent nasal discharge. No sinus tenderness. No oral lesions noted. No exudate. No oral thrush. NECK: Trachea midline. Supple and not tender, no meningeal signs CARDIOVASCULAR: Regular rate and rhythm. No murmurs, rubs or gallops heard RESPIRATORY: Clear to auscultation. Breath sounds equal bilaterally. No rales , wheezing or rhonchi ABDOMEN: Soft, non-tender, nondistended. Bowel sounds present and normoactive. No guarding. No rebound. No organomegaly. EXTREMITIES: No clubbing, cyanosis, or edema. His L elbow has evidence of effusion, and has very limited ROM due to the pain. His L knee has effusion and severe pain with any ROM. No calf tenderness. Well perfused and warm. BACK: Pain on palpation of his L buttocks NEUROLOGICAL: Sleepy PSYCHIATRIC: Normal affect, calm and cooperative. LINE: No evidence of infection on the port which is on his L upper chest Assessment & Plan Remarks IMPRESSION Sepsis on presentation and has different organisms from his port - has port infection, S/P removal - concerns would be septic joints - he has effusions in his L elbow, and L knee, and also has L buttock hematoma; could be seeded Hemophilia with recurrent spontaneous hemarthrosis, and other bleeding Chronic pain, and chronic narcotic use Fevers, temps better RECOMMENDATION Continune Zosyn Continue Micafungin Continue Levaquin Follow-up BC Follow C/S Follow temps Monitor progress Kamini Mcgrath MD Dec 25, 2016 15:29
[2016-12-25 15:50] VITALS: BP 101/58; PULSE 86; RESP 20; TEMP 97.2; O2SAT 97
--- NOTE | 2016-12-25 16:15 | HHI.PR ---
Subjective Remarks patient complains of pain left deltoid area and chest - port site Objective Vitals Vital Signs Date Time Temp Pulse Resp B/P Pulse Ox O2 Delivery O2 Flow Rate FiO2 12/25/16 14:34 16 12/25/16 14:00 16 12/25/16 11:50 97.3 80 20 108/71 98 12/25/16 07:50 97.5 64 20 124/71 98 12/25/16 05:35 12 12/25/16 04:30 98.3 81 18 118/63 97 12/25/16 00:00 98.1 77 16 116/65 96 12/24/16 20:57 16 12/24/16 20:44 15 12/24/16 20:00 97.8 92 16 118/59 96 I/O 12/24/16 12/24/16 12/24/16 12/25/16 12/25/16 12/25/16 07:00 15:00 23:00 07:00 15:00 23:00 Intake Total 2540 ml 1240 ml 720 ml 480 ml Output Total 3400 ml 4100 ml 1100 ml 1200 ml Balance -860 ml -2860 ml -380 ml -720 ml Intake Oral 960 ml 1080 ml 720 ml 480 ml IV Total 1580 ml 160 ml Output Urine Total 3400 ml 4100 ml 1100 ml 1200 ml # Bowel Movements 0 Result Diagram: 12/25/16 0635 12/25/16 0635 Imaging Last Impressions Upper Extremity Ultrasound 12/15/16 0000 Signed Impressions: Service Date/Time: Thursday, December 15, 2016 19:08 - CONCLUSION: 1. Negative for deep venous thrombosis. Occlusive and nonocclusive thrombus in the right cephalic vein. Alejandro Neri MD Chest X-Ray 12/11/16 0000 Signed Impressions: Service Date/Time: November 09:04 - CONCLUSION: A faint consolidation within the lingula likely atelectasis with a poor inspiratory effort. Right sided Ylyvyh-l-Veow catheter in excellent position. Garrett Altman MD Upper Extremity CT 12/10/16 0000 Signed Impressions: Service Date/Time: Saturday, December 10, 2016 19:14 - CONCLUSION: 1. Joint effusion. There is no evidence of acute fracture. Scot Flores MD Lower Extremity CT 12/10/16 0000 Signed Impressions: Service Date/Time: Saturday, December 10, 2016 19:04 - CONCLUSION: 1. 7.2 x 4.2 symmetr hematoma in left leads mediastinal Scot Flores MD Abdomen/Pelvis CT 12/10/16 0000 Signed Impressions: Service Date/Time: Saturday, December 10, 2016 18:59 - CONCLUSION: 1. No evidence of acute abdominal or pelvic process. No masses are identified. Scot Flores MD Objective Remarks oriented x 3, appers comfortable anicteric, left upper molar decayed chest wall- post op dressing in place (port removed) chest wall- - elliptical superficial wound- s/p debridement, no surrounding erythema, good granulation lungs- decreased breath sounds, no rales regular rhythm abdomen soft, nontender, no guarding extremities- LUE - left elbow mild swelling with pain with extension, wrist no swelling-, with full extension- stable exam Left knee with minimal effusion-pain with full extension lateral aspect of thigh - mild swelling- ecchymoses- improved moves feet, fingers and toes freely very good peripheral pulses all throughout Procedures 12/23 port removal A/P Problem List: (1) Anemia ICD Code: D64.9 Status: Acute (2) Hemarthrosis ICD Code: M25.00 Status: Acute (3) 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 and NovoSeven 10 mg IV every 4 Amicar 2 gm po q 6 - Hemarthroses- with effusion swelling/pain involving left elbow, left knee,,- - stable Left hip/thigh hematoma with overlying ecchymoses with limitation in ROM- stable Acute on chronic pain No signs of compartment syndrome. Peripheral pulses strong and equal on LOG SKIDDER pump Hematology ff History of anxiety disorder Continue on Xanax Smoker counseled extensively patient states he's been getting up around the room. encouraged Problem Qualifiers (1) Anemia: Qualified Code: D64.9 - Anemia, unspecified type (2) Sepsis: Qualified Code: A41.9 - Sepsis, due to unspecified organism (3) Hypotension: Qualified Code: I95.9 - Hypotension, unspecified hypotension type Nicolás Green MD Dec 25, 2016 16:15
[2016-12-25] MEDS: LEVOFLOXACIN 750 MG TAB PO SCH (16:45)
[2016-12-25] MEDS: MICAFUNGIN INJ 100 MG in SODIUM CHLORIDE 0.9% INJ 100 ML IV SCH (20:00)
[2016-12-25] MEDS: REMOVE OLD PATCH T-DERMAL SCH (20:47)
[2016-12-25 20:53] VITALS: BP 99/60; PULSE 91; RESP 18; TEMP 98.2; O2SAT 98
[2016-12-26] VITALS: BP 103/55; PULSE 77; RESP 19; TEMP 97.8; O2SAT 99
[2016-12-26] MEDS: [UNRECOGNIZED DRUG - OTHER] IV SCH
[2016-12-26] MEDS: PIPERACIL-TAZO 4.5 GM PREMIX 100 ML IV SCH ×5 (02:18→23:00)
[2016-12-26 04:00] VITALS: BP 109/65; PULSE 75; RESP 19; TEMP 99.3; O2SAT 97
[2016-12-26] MEDS: FACTOR VIIA (RECOMB) 5 MG VIAL IV PUSH SCH ×3 (04:00→11:52)
[2016-12-26] MEDS: [UNRECOGNIZED DRUG - OTHER] IV SCH ×2 (05:00→11:52)
[2016-12-26] MEDS: ALPRAZolam 0.5 MG TAB PO SCH ×3 (05:00→21:34)
[2016-12-26] MEDS: HYDROMORPHONE IV SCH (05:14)
[2016-12-26] MEDS: SODIUM CHLORIDE 0.9% IV SCH (05:14)
[2016-12-26] MEDS: AMINOCAPROIC ACID 500 MG TAB PO SCH ×3 (06:12→18:55)
[2016-12-26] MEDS: PCA - TOTAL MG DILAUDID DELIVERED PER SHIFT SCH ×3 (06:13→21:22)
[2016-12-26] MEDS: SODIUM CHLOR 0.9% 1000 ML INJ 1,000 ML IV SCH ×2 (07:55→19:50)
[2016-12-26] MEDS: NICOTINE 4 MG/GUM CHEW PRN ×5 (08:23→18:58)
[2016-12-26] MEDS: MORPHINE SULFATE 60 MG CONTROLLED RELEASE TAB PO SCH ×2 (08:24→21:20)
[2016-12-26] MEDS: SILVER SULFADIAZINE 1% CR 50 GM JAR TOPICAL SCH ×2 (09:00→21:00)
--- NOTE | 2016-12-26 09:18 | PD.ONC.PN ---
Subjective Subjective Remarks Afebrile overnight. Patient remains bedbound. States he continues to have pain in his right bicep. "the bicep is tight." He states it is typical for him not to have any bruising until the bleeding begins to resolve. He feels the left knee pain is improving. States he is still having pain and possibly bleeding in the left hip. Did not eat any breakfast this morning. States he does not have much of an appetite due to the pain. Has some itching at the site of his port removal. Objective Data Date Time Temp Pulse Resp B/P Pulse Ox O2 Delivery O2 Flow Rate FiO2 12/26/16 06:13 18 12/26/16 06:03 18 12/26/16 05:14 18 12/26/16 04:00 99.3 75 19 109/65 97 12/26/16 00:00 97.8 77 19 103/55 99 12/25/16 23:33 18 12/25/16 22:00 18 12/25/16 20:53 98.2 91 18 99/60 98 12/25/16 15:50 97.2 86 20 101/58 97 12/25/16 14:34 16 12/25/16 14:00 16 12/25/16 11:50 97.3 80 20 108/71 98 Result Diagram: 12/25/16 0635 12/25/16 0635 Culture Results Microbiology Date/Time Procedure Status Source Growth 12/23/16 11:31 Gram Stain - Final Resulted Wound Other 12/23/16 11:31 Wound Culture - Preliminary Resulted Gram Negative Twan 12/23/16 11:40 Acid Fast Stain - Final Resulted Wound Other NO ACID FAST BACILLI SEEN 12/23/16 11:40 Mycobacterial Culture Resulted Wound Other Pending 12/23/16 11:40 Fungal Smear - Final Resulted Wound Other NO FUNGAL ELEMENTS SEEN. 12/23/16 11:40 Fungal Culture Resulted Wound Other Pending 12/23/16 11:40 Gram Stain - Final Resulted Wound Other 12/23/16 11:40 Wound Culture - Preliminary Resulted Gram Negative Twan 12/23/16 11:40 Acid Fast Stain - Final Resulted Wound Other NO ACID FAST BACILLI SEEN 12/23/16 11:40 Mycobacterial Culture Resulted Wound Other Pending 12/23/16 11:40 Fungal Smear - Final Resulted Wound Other 12/23/16 11:40 Fungal Culture Resulted Wound Other Pending 12/24/16 08:30 Aerobic Blood Culture - Preliminary Resulted Blood Other NO GROWTH IN 1 DAY 12/24/16 08:30 Anaerobic Blood Culture - Preliminary Resulted Blood Other NO GROWTH IN 1 DAY 12/24/16 08:36 Aerobic Blood Culture - Preliminary Resulted Blood Peripheral NO GROWTH IN 1 DAY 12/24/16 08:36 Anaerobic Blood Culture - Preliminary Resulted Blood Peripheral NO GROWTH IN 1 DAY Administered Medications Medications (Trade) Dose Ordered Sig/Mike Route PRN Reason Start Time Stop Time Status Last Admin Dose Admin Sodium Chloride (NS Flush) 2 ml UNSCH PRN IVF FLUSH AFTER USING IV ACCESS 12/10/16 13:45 12/25/16 08:49 Alprazolam (Xanax) 0.5 mg Q8H PO 12/10/16 17:30 12/26/16 05:00 Morphine Sulfate (Oramorph Sr) 60 mg Q12HR PO 12/10/16 21:00 12/26/16 08:24 Aminocaproic Acid (Amicar) 2,000 mg Q6HR PO 12/10/16 18:45 12/26/16 06:12 Levofloxacin (Levaquin) 750 mg Q24H PO 12/11/16 18:00 12/25/16 16:45 RESIDENTIAL TECH Dosage Infused (Pha) 1 Q8HR .XX 12/12/16 07:30 12/26/16 06:13 Miscellaneous Information 1 HS T-DERMAL 12/13/16 21:00 12/16/16 22:02 Nicotine (Nicotine Gum) 4 mg UNSCH PRN CHEW NICOTINE CRAVINGS 12/13/16 13:30 12/26/16 08:23 Silver Sulfadiazine (Silvadene 1% Cream (50 Gm)) 1 applic Q12HR TOPICAL 12/16/16 09:00 12/22/16 21:15 Dronabinol 2.5 mg 2.5 mg BID@11,16 PO 12/19/16 16:00 12/25/16 16:45 Sodium Chloride (NS 1000 ml Inj) 1,000 ml @ 84 mls/hr [id number] IV 12/19/16 21:00 12/25/16 20:00 Anti-Inhibitor Coagulant Complex 7500 units 7,500 units Q8H IV 12/20/16 13:00 Hold 12/25/16 05:22 Piperacillin Sod/ Tazobactam Sod 100 ml @ 200 mls/hr Q6H IV 12/23/16 11:00 12/26/16 05:00 Micafungin Sodium/ Sodium Chloride (Mycamine Inj/NS Inj) 100 ml @ 100 mls/hr Q24H IV 12/24/16 20:00 12/25/16 20:00 Patient Own Medication PT OWN MED: FEIBA 7,500 UN... Q8H IV 12/25/16 13:00 12/26/16 05:00 Patient Own Medication PT OWN MED: PT OWN M... Q4H IV 12/25/16 08:00 Hold 12/25/16 23:32 Factor VII (Pha) (Novoseven Rt Inj) 10 mg Q4HR IV PUSH 12/26/16 04:00 12/26/16 08:23 Objective Remarks GENERAL: This is a young man, sitting up in bed. He appears comfortable and in nad. He was watching TV when I walked in the room. SKIN: Warm and dry. no visible ecchymoses. there are some pen markings on the left hip and left knee. bandage over right chest wall is intact without bleeding. HEAD: Normocephalic. No bleeding from nares. EYES: No scleral icterus. No injection or drainage. NECK: Supple, trachea midline. CARDIOVASCULAR: Regular rate and rhythm without murmurs. RESPIRATORY: Breath sounds equal bilaterally. No accessory muscle use. GASTROINTESTINAL: Abdomen soft, non-tender, nondistended. EXTREMITIES: No cyanosis. Has chronic joint changes in all joints. Left hip and left knee without bruising. swelling seems improved. right bicep without bruising. I do not appreciate any swelling during my exam. MUSCULOSKELETAL: Adequate muscle tone. NEUROLOGICAL: awake and alert, normal speech. 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 Presents with hematoma in the left gluteal muscle group, hemarthrosis in the left knee and pain in the left elbow. Plan 1. Hemophilia A with a high circulating factor VIII inhibitor titer (12.5 Carman units, >5 Carman units is considered high): continue FEIBA and NovoSeven. H/H improved today. no evidence of bleeding. will switch back to q 8 dosing for the FEIBA and NovoSeven. 2. Sepsis: multiple GNR and now Shira Glabrata. Started Micafungin. Infusion port DC'd on 12/23/2016. On Zosyn, Micafungin, Levaquin. ID following. Remains afebrile. 3. Tooth decay and tooth infection: OMF surgery consulted on 12/23. awaiting consult. 4. Pain control: On hydromorphone RESIDENTIAL TECH pump. patient appears comfortable on current pain regimen. Nallely Brand Dec 26, 2016 09:18
[2016-12-26 09:44] VITALS: BP 107/55; PULSE 72; RESP 16; TEMP 97.2; O2SAT 97
[2016-12-26] MEDS: DRONABINOL 2.5 MG CAP PO SCH ×2 (10:37→16:12)
[2016-12-26 12:39] LABS: HEMATOCRIT 29.9 % (39.0-51.0); REVIEW FLAG FINAL
--- NOTE | 2016-12-26 13:38 | RADRPT ---
EXAM DATE/TIME: 12/26/2016 13:20 [facility] COMPARISON: No previous studies available for comparison. INDICATIONS : Right shoulder pain. History of hemophilia, evaluate for joint bleed. RADIATION DOSE: 15.97 CTDIvol (mGy) MEDICAL HISTORY : Hemophilia. SURGICAL HISTORY : None. ENCOUNTER: Initial ACUITY: 1 day PAIN SCALE: 6/10 LOCATION: Right shoulder TECHNIQUE: Volumetric scanning of the shoulder was performed. Using automated exposure control and adjustment o f the mA and/or kV according to patient size, radiation dose was kept as low as reasonably achievable to obtain optimal diagnostic quality images. FINDINGS: BONES: No evidence of fracture. Alignment is within normal limits. JOINTS: No evidence of joint narrowing or effusion. SOFT TISSUES: Muscles, tendons, and neurovascular structures are grossly unremarkable. The integrity of the rotato r cuff tendons cannot be reliably evaluated on CT without intra-articular contrast. No evidence of m ass, organized fluid collection, or foreign body. Patchy right lung opacity. CONCLUSION: Patchy right lung opacity. Right shoulder CT otherwise within normal limits. Salvador Najera MD on December 26, 2016 at 13:34 Board Certified Radiologist. This report was verified electronically.
[2016-12-26] MEDS ORDERED: PATIENT OWN MEDICATION IV SCH (14:00)
--- NOTE | 2016-12-26 14:11 | RADRPT ---
EXAM DATE/TIME: 12/26/2016 13:09 [facility] COMPARISON: CT HIP LEFT W/O CONTRAST, December 10, 2016, 19:04. INDICATIONS : Left hip posterior hematoma. RADIATION DOSE: 14.40 CTDIvol (mGy) MEDICAL HISTORY : Hemophilia. Chemotherapy SURGICAL HISTORY : None. ENCOUNTER: Subsequent ACUITY: 1 week PAIN SCALE: 6/10 LOCATION: Left pelvis TECHNIQUE: Volumetric scanning of the hip was performed. Using automated exposure control and adjustment of the mA and/or kV according to patient size, radiation dose was kept as low as reasonably achievable to o btain optimal diagnostic quality images. FINDINGS: BONES: No evidence of fracture. Alignment is within normal limits. JOINTS: Large osteophytes and moderate narrowing of the right hip again seen indicating severe osteoarthritic findings. No significant osteophyte formation of the left hip. No evidence of joint narrowing. No ev idence of joint effusion. SOFT TISSUES: Muscles, tendons and neurovascular structures are grossly unremarkable. No evidence of mass, organize d fluid collection, or foreign body. CONCLUSION: 1. No fluid collections or hematomas identified. 2. Left hip within normal limits. 3. Severe osteoarthritic findings of the right hip. Salvador Najera MD on December 26, 2016 at 14:04 Board Certified Radiologist. This report was verified electronically.
--- NOTE | 2016-12-26 14:22 | HHI.PR ---
Subjective Remarks pain when moving- "all over" no diarrhea no nausea or vomiting or abdominal apin Objective Vitals Vital Signs Date Time Temp Pulse Resp B/P Pulse Ox O2 Delivery O2 Flow Rate FiO2 12/26/16 09:44 97.2 72 16 107/55 97 12/26/16 06:13 18 12/26/16 06:03 18 12/26/16 05:14 18 12/26/16 04:00 99.3 75 19 109/65 97 12/26/16 00:00 97.8 77 19 103/55 99 12/25/16 23:33 18 12/25/16 22:00 18 12/25/16 20:53 98.2 91 18 99/60 98 12/25/16 15:50 97.2 86 20 101/58 97 12/25/16 14:34 16 I/O 12/25/16 12/25/16 12/25/16 12/26/16 12/26/16 12/26/16 07:00 15:00 23:00 07:00 15:00 23:00 Intake Total 480 ml 840 ml 420 ml Output Total 1200 ml 2310 ml 2150 ml 2100 ml Balance -720 ml -1470 ml -1730 ml -2100 ml Intake Oral 480 ml 840 ml 420 ml Output Urine Total 1200 ml 2310 ml 2150 ml 2100 ml # Bowel Movements 0 0 Result Diagram: 12/26/16 1219 12/25/16 0635 Imaging Last Impressions Upper Extremity CT 12/26/16 0000 Signed Impressions: Service Date/Time: Monday, December 26, 2016 13:20 - CONCLUSION: Patchy right lung opacity. Right shoulder CT otherwise within normal limits. Salvador Najera MD Upper Extremity Ultrasound 12/15/16 0000 Signed Impressions: Service Date/Time: Thursday, December 15, 2016 19:08 - CONCLUSION: 1. Negative for deep venous thrombosis. Occlusive and nonocclusive thrombus in the right cephalic vein. Alejandro Neri MD Chest X-Ray 12/11/16 0000 Signed Impressions: Service Date/Time: November 09:04 - CONCLUSION: A faint consolidation within the lingula likely atelectasis with a poor inspiratory effort. Right sided Qkdohr-j-Rwoo catheter in excellent position. Garrett Altman MD Lower Extremity CT 12/10/16 0000 Signed Impressions: Service Date/Time: Saturday, December 10, 2016 19:04 - CONCLUSION: 1. 7.2 x 4.2 symmetr hematoma in left leads mediastinal Scot Flores MD Abdomen/Pelvis CT 12/10/16 0000 Signed Impressions: Service Date/Time: Saturday, December 10, 2016 18:59 - CONCLUSION: 1. No evidence of acute abdominal or pelvic process. No masses are identified. Scot Flores MD Objective Remarks oriented x 3, appears comfortable anicteric, left upper molar decayed chest wall- post op dressing in place (port removed) chest wall- - elliptical superficial wound- s/p debridement, no surrounding erythema, good granulation lungs- decreased breath sounds, no rales regular rhythm abdomen soft, nontender, no guarding extremities- LUE - left elbow mild swelling with pain with extension, wrist no swelling-, with full extension- stable exam Left knee with minimal effusion-pain with full extension lateral aspect of thigh - mild swelling- ecchymoses- improved moves feet, fingers and toes freely, no cyanosis very good peripheral pulses all throughout, Procedures 12/23 port removal A/P Problem List: (1) Anemia ICD Code: D64.9 Status: Acute (2) Hemarthrosis ICD Code: M25.00 Status: Acute (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 and NovoSeven 10 mg IV every 4 Amicar 2 gm po q 6 - Hemarthroses- with effusion swelling/pain involving left elbow, left knee,,- - stable Left hip/thigh hematoma with overlying ecchymoses with limitation in ROM- stable Acute on chronic pain No signs of compartment syndrome. Peripheral pulses strong and equal on WASHER OPERATOR pump Hematology ff History of anxiety disorder Continue on Xanax Smoker counseled extensively patient states he's been getting up around the room. encouraged Problem Qualifiers (1) Anemia: Qualified Code: D64.9 - Anemia, unspecified type (2) Sepsis: Qualified Code: A41.9 - Sepsis, due to unspecified organism (3) Hypotension: Qualified Code: I95.9 - Hypotension, unspecified hypotension type Nicolás Green MD Dec 26, 2016 14:22
--- NOTE | 2016-12-26 15:38 | HHI.IDPN ---
Subjective Subjective Remarks Notes reviewed Afebrile S/P removal of port 12/23 - C/S from pocket with 2 GNR (one is Serratia, second one pending) - C/S tip - GNR Pain is the same Last (+) BC with Achromobacter 12/20 12/12 from port - BC with Achromobacter 12/13 from port - Klebsiella and Serratia 12/15 from port with Achromobacter and GPC in clusters BC 12/17 now with Achromobacter and Prabhu glabrata BC 12/18 negative so far BC 12/20 Achromobacter BC 12/21 negative so far Echo ok Doppler no thrombus where port is Antibiotics Zosyn Levaquin Micafungin Lines Port - removed 12/23 Past Medical History Reviewed Allergies: Coded Allergies: Nonsteroidal Anti-Inflammatory Agts (Verified Adverse Reaction, Severe, bleeding, 11/18/16) Objective . Vital Signs Date Time Temp Pulse Resp B/P Pulse Ox O2 Delivery O2 Flow Rate FiO2 12/26/16 09:44 97.2 72 16 107/55 97 12/26/16 06:13 18 12/26/16 06:03 18 12/26/16 05:14 18 12/26/16 04:00 99.3 75 19 109/65 97 12/26/16 00:00 97.8 77 19 103/55 99 12/25/16 23:33 18 12/25/16 22:00 18 12/25/16 20:53 98.2 91 18 99/60 98 12/25/16 15:50 97.2 86 20 101/58 97 12/25/16 12/25/16 12/26/16 15:00 23:00 07:00 Intake Total 840 ml 420 ml Output Total 2310 ml 2150 ml Balance -1470 ml -1730 ml Intake Oral 840 ml 420 ml Output Urine Total 2310 ml 2150 ml # Bowel Movements 0 0 . Laboratory Tests Test 12/25/16 12/26/16 06:35 12:19 White Blood Count 8.4 TH/MM3 Red Blood Count 3.54 MIL/MM3 Hemoglobin 9.4 GM/DL 9.9 GM/DL Hematocrit 28.2 % 29.9 % Mean Corpuscular Volume 79.7 FL Mean Corpuscular Hemoglobin 26.6 PG Mean Corpuscular Hemoglobin 33.4 % Concent Red Cell Distribution Width 18.1 % Platelet Count 192 TH/MM3 Mean Platelet Volume 7.8 FL Neutrophils (%) (Auto) 63.4 % Lymphocytes (%) (Auto) 21.5 % Monocytes (%) (Auto) 7.8 % Eosinophils (%) (Auto) 6.7 % Basophils (%) (Auto) 0.6 % Neutrophils # (Auto) 5.3 TH/MM3 Lymphocytes # (Auto) 1.8 TH/MM3 Monocytes # (Auto) 0.7 TH/MM3 Eosinophils # (Auto) 0.6 TH/MM3 Basophils # (Auto) 0.1 TH/MM3 CBC Comment DIFF FINAL Differential Comment Laboratory Tests Test 12/25/16 06:35 Sodium Level 138 MEQ/L Potassium Level 3.5 MEQ/L Chloride Level 101 MEQ/L Carbon Dioxide Level 29.4 MEQ/L Anion Gap 8 MEQ/L Blood Urea Nitrogen 5 MG/DL Creatinine 0.47 MG/DL Estimat Glomerular Filtration 218 ML/MIN Rate Random Glucose 95 MG/DL Calcium Level 9.2 MG/DL Phosphorus Level 3.1 MG/DL Magnesium Level 2.2 MG/DL Total Bilirubin 1.1 MG/DL Aspartate Amino Transf 7 U/L (AST/SGOT) Alanine Aminotransferase 18 U/L (ALT/SGPT) Alkaline Phosphatase 90 U/L Total Protein 6.6 GM/DL Albumin 2.6 GM/DL Microbiology Date/Time Procedure Status Source Growth 12/24/16 08:30 Aerobic Blood Culture - Preliminary Resulted Blood Other NO GROWTH IN 2 DAYS 12/24/16 08:30 Anaerobic Blood Culture - Preliminary Resulted Blood Other NO GROWTH IN 2 DAYS 12/24/16 08:36 Aerobic Blood Culture - Preliminary Resulted Blood Peripheral NO GROWTH IN 2 DAYS 12/24/16 08:36 Anaerobic Blood Culture - Preliminary Resulted Blood Peripheral NO GROWTH IN 2 DAYS Imaging Last Impressions Chest X-Ray 12/11/16 0000 Signed Impressions: Service Date/Time: November 09:04 - CONCLUSION: A faint consolidation within the lingula likely atelectasis with a poor inspiratory effort. Right sided Xvjwzp-q-Sqff catheter in excellent position. Garrett Altman MD Upper Extremity CT 12/10/16 0000 Signed Impressions: Service Date/Time: Saturday, December 10, 2016 19:14 - CONCLUSION: 1. Joint effusion. There is no evidence of acute fracture. Scot Flores MD Lower Extremity CT 12/10/16 0000 Signed Impressions: Service Date/Time: Saturday, December 10, 2016 19:04 - CONCLUSION: 1. 7.2 x 4.2 symmetr hematoma in left leads mediastinal Scot Flores MD Abdomen/Pelvis CT 12/10/16 0000 Signed Impressions: Service Date/Time: Saturday, December 10, 2016 18:59 - CONCLUSION: 1. No evidence of acute abdominal or pelvic process. No masses are identified. Scot Flores MD Physical Exam GENERAL: sleepy, NAD SKIN: Warm and dry. Has ecchymoses in his lateral left thigh. Wound close to port, scab came off, wound with some ointment, clean base, no surrounding cellulitis HEENT: [place] conjunctiva. No petechia or hemorrhage. No scleral icterus. No injection or drainage. No oral lesions noted. No exudate. No oral thrush. NECK: Trachea midline. Supple and not tender, no meningeal signs CARDIOVASCULAR: Regular rate and rhythm. No murmurs, rubs or gallops heard RESPIRATORY: Clear to auscultation. Breath sounds equal bilaterally. No rales , wheezing or rhonchi ABDOMEN: Soft, non-tender, nondistended. Bowel sounds present and normoactive. No guarding. No rebound. No organomegaly. EXTREMITIES: No clubbing, cyanosis, or edema. L elbow looks less effusion, has very limited ROM due to the pain. His L knee has effusion and severe pain with any ROM. No calf tenderness. Well perfused and warm. BACK: Pain on palpation of his L buttocks NEUROLOGICAL: Sleepy LINE: dry dressing over his R chest Assessment & Plan Remarks IMPRESSION Sepsis on presentation and has different organisms from his port - has port infection, S/P removal - concerns would be septic joints - he has effusions in his L elbow, and L knee, and also has L buttock hematoma; could be seeded Hemophilia with recurrent spontaneous hemarthrosis, and other bleeding Chronic pain, and chronic narcotic use Fevers, temps better RECOMMENDATION Continue Zosyn Continue Micafungin - at least 14 days from his last (+) BC with prabhu - give until December 31 Continue Levaquin Follow-up BC - if all GNR sensitive to Levaquin, will D/C Zosyn - Levaquin can be given orally Follow C/S Follow temps Monitor progress I will check patient again on Thursday Dr Josefina Hoyt covering if with any new ID problem or issue this Kamini Mcgrath MD Dec 26, 2016 15:38
[2016-12-26 16:00] VITALS: BP 100/54; PULSE 89; RESP 14; TEMP 98.6; O2SAT 99
[2016-12-26] MEDS ORDERED: FACTOR VIIA (RECOMB) 5 MG VIAL IV PUSH SCH (16:00)
[2016-12-26] MEDS: LEVOFLOXACIN 750 MG TAB PO SCH (18:36)
[2016-12-26 20:00] VITALS: BP 106/57; PULSE 85; RESP 17; TEMP 98.5; O2SAT 99
[2016-12-26] MEDS ORDERED: ANTI-INHIBITOR COAGULANT COMPLEX 100 UNIT INJ IV SCH (20:00)
[2016-12-26] MEDS: REMOVE OLD PATCH T-DERMAL SCH (21:00)
[2016-12-26] MEDS: MICAFUNGIN INJ 100 MG in SODIUM CHLORIDE 0.9% INJ 100 ML IV SCH (21:21)
[2016-12-27] VITALS: BP 97/56; PULSE 89; RESP 18; TEMP 99.5; O2SAT 98
[2016-12-27] MEDS ORDERED: [UNRECOGNIZED DRUG - OTHER] IV SCH
--- NOTE | 2016-12-27 00:17 | RADRPT ---
EXAM DATE/TIME: 12/27/2016 00:03 [facility] COMPARISON: No previous studies available for comparison. INDICATIONS : Cephalgia, evaluate hemorrhage. RADIATION DOSE: 56.35 CTDIvol (mGy) MEDICAL HISTORY : Hemophilia. SURGICAL HISTORY : None. ENCOUNTER: Initial ACUITY: 2 days PAIN SCALE: 8/10 LOCATION: Left cranial TECHNIQUE: Multiple contiguous axial images were obtained of the head. Using automated exposure control and adj ustment of the mA and/or kV according to patient size, radiation dose was kept as low as reasonably a chievable to obtain optimal diagnostic quality images. FINDINGS: There is no evidence for intracranial hemorrhage, mass effect, mass lesions, edema, or extra-axial fl uid collections. The visualized bony structures appear intact. The ventricles are normal size for t he patient's age. There are no signs of acute infarction for technique. Septum pellucidum vergae and cavum are identified. CONCLUSION: Unremarkable study. Asia Carr MD on December 27, 2016 at 0:13 Board Certified Radiologist. This report was verified electronically.
[2016-12-27] MEDS: AMINOCAPROIC ACID 500 MG TAB PO SCH ×4 (01:06→17:03)
[2016-12-27] MEDS: SODIUM CHLORIDE 0.9% IV SCH ×2 (02:31→16:00)
[2016-12-27] MEDS: HYDROMORPHONE IV SCH ×2 (02:31→16:00)
[2016-12-27 04:00] VITALS: BP 106/71; PULSE 89; RESP 18; TEMP 100.2; O2SAT 97
[2016-12-27] MEDS: [UNRECOGNIZED DRUG - OTHER] IV SCH ×3 (04:17→20:13)
[2016-12-27] MEDS: PIPERACIL-TAZO 4.5 GM PREMIX 100 ML IV SCH ×4 (04:18→22:57)
[2016-12-27] MEDS: ACETAMINOPHEN 325 MG TAB PO PRN ×2 (04:27→22:57)
[2016-12-27] MEDS: ALPRAZolam 0.5 MG TAB PO SCH ×3 (05:17→22:08)
[2016-12-27] MEDS: NICOTINE 4 MG/GUM CHEW PRN ×6 (05:18→21:53)
[2016-12-27] MEDS: PCA - TOTAL MG DILAUDID DELIVERED PER SHIFT SCH ×3 (06:00→22:00)
[2016-12-27 08:00] VITALS: BP 104/59; PULSE 75; RESP 18; TEMP 97.6; O2SAT 94
[2016-12-27] MEDS ORDERED: FACTOR VIIA (RECOMB) 5 MG VIAL IV PUSH SCH ×2 (08:00→21:00)
--- NOTE | 2016-12-27 09:46 | PD.ONC.PN ---
Subjective Subjective Remarks Tmax 100.2 overnight. Slowly overall feeling better C/o L hip, R shoulder pain Appetite still quite decreased Objective Data Date Time Temp Pulse Resp B/P Pulse Ox O2 Delivery O2 Flow Rate FiO2 12/27/16 08:00 97.6 75 18 104/59 94 Manual Cuff/Auscultation 12/27/16 06:00 18 12/27/16 04:00 100.2 89 18 106/71 97 12/27/16 03:01 18 12/27/16 02:31 18 12/27/16 00:00 99.5 89 18 97/56 98 12/26/16 22:21 18 12/26/16 21:22 18 12/26/16 20:00 98.5 85 17 106/57 99 12/26/16 16:00 98.6 89 14 100/54 99 12/26/16 09:44 97.2 72 16 107/55 97 12/27/16 12/27/16 12/27/16 07:00 15:00 23:00 Intake Total 720 ml 600 ml Output Total 2600 ml Balance -1880 ml 600 ml Result Diagram: 12/26/16 1219 12/25/16 0635 Laboratory Results Laboratory Tests Test 12/26/16 12:19 Hemoglobin 9.9 GM/DL Hematocrit 29.9 % Administered Medications Medications (Trade) Dose Ordered Sig/Mike Route PRN Reason Start Time Stop Time Status Last Admin Dose Admin Sodium Chloride (NS Flush) 2 ml UNSCH PRN IVF FLUSH AFTER USING IV ACCESS 12/10/16 13:45 12/25/16 08:49 Alprazolam (Xanax) 0.5 mg Q8H PO 12/10/16 17:30 12/27/16 05:17 Morphine Sulfate (Oramorph Sr) 60 mg Q12HR PO 12/10/16 21:00 12/26/16 21:20 Aminocaproic Acid (Amicar) 2,000 mg Q6HR PO 12/10/16 18:45 12/27/16 06:39 Levofloxacin (Levaquin) 750 mg Q24H PO 12/11/16 18:00 12/26/16 18:36 COLLEGE COACH Dosage Infused (Pha) 1 Q8HR .XX 12/12/16 07:30 12/27/16 06:00 Miscellaneous Information 1 HS T-DERMAL 12/13/16 21:00 12/16/16 22:02 Nicotine (Nicotine Gum) 4 mg UNSCH PRN CHEW NICOTINE CRAVINGS 12/13/16 13:30 12/27/16 06:39 Silver Sulfadiazine (Silvadene 1% Cream (50 Gm)) 1 applic Q12HR TOPICAL 12/16/16 09:00 12/22/16 21:15 Dronabinol 2.5 mg 2.5 mg BID@11,16 PO 12/19/16 16:00 12/26/16 16:12 Sodium Chloride 1,000 ml @ 84 mls/hr [id number] IV 12/19/16 21:00 12/26/16 19:50 Piperacillin Sod/ Tazobactam Sod 100 ml @ 200 mls/hr Q6H IV 12/23/16 11:00 12/27/16 04:18 Micafungin Sodium/ Sodium Chloride (Mycamine Inj/NS Inj) 100 ml @ 100 mls/hr Q24H IV 12/24/16 20:00 12/26/16 21:21 Patient Own Medication PT OWN MED: FEIBA 7,500 UN... Q8H IV 12/27/16 04:00 12/27/16 04:17 Acetaminophen (Tylenol) 650 mg Q4H PRN PO FEVER 12/27/16 04:15 12/27/16 04:27 Objective Remarks GENERAL: Disheveled appearing young male, lying in bed in no distress watching TV. SKIN: Warm and dry. No obvious edema or ecchymoses. HEAD: Normocephalic. EYES: No scleral icterus. No injection or drainage. NECK: Supple, trachea midline. No JVD or lymphadenopathy. CARDIOVASCULAR: +S1/S2. No murmur noted. RESPIRATORY: Lungs clear. Breathing unlabored. GASTROINTESTINAL: Abdomen soft, non-tender, nondistended. EXTREMITIES: No cyanosis, or edema. MUSCULOSKELETAL: Generalized weakness. No joint swelling noted. NEUROLOGICAL: No obvious focal deficit. Awake, alert, and oriented x3. PSYCHIATRIC: Somewhat depressed, flat affect. 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 Plan 1. Continue FEIBA and NIDA 7, alternating every 12 hours. Pt slowly improving. 2. Continue Abx per ID. Monitor for fevers. 3. Await consult for oral maxillo-facial surgeon. 4. Continue current pain regimen. Attending Statement The exam, history, and the medical decision-making described in the above note were completed with the assistance of the mid-level provider. I reviewed and agree with the findings presented. I attest that I had a [id number] encounter with the patient on the same day, and personally performed and documented my assessment and findings in the medical record. Pt seen and examined, labs and meds reviewed. He had a temp last night of 100.2F. Cultures reviewed today. He remains on Levofloxacin and zosyn. All the organism which have been isolated seem to be sensitive to levofloxacin. I am cutting back his novoseven and FEIBA to q12hrs, I think this will be sufficient. Oral surgery has not seen him yet... I don't think this will happen this hospitalization. I will try to arrange an out pt evaluation. I have also decreased his dilaudid COLLEGE COACH dosing. This needs to be weaned off for him to go on oral dosing for eventual discharge. Tanisha Moore Dec 27, 2016 09:46 Leno Adam MD Dec 27, 2016 18:53
[2016-12-27] MEDS: [UNRECOGNIZED DRUG - OTHER] IV SCH ×2 (09:58→17:02)
[2016-12-27] MEDS: MORPHINE SULFATE 60 MG CONTROLLED RELEASE TAB PO SCH ×2 (09:58→21:54)
[2016-12-27] MEDS: SILVER SULFADIAZINE 1% CR 50 GM JAR TOPICAL SCH ×2 (10:00→21:00)
[2016-12-27 12:00] VITALS: BP 107/60; PULSE 65; RESP 16; TEMP 97.7; O2SAT 99
[2016-12-27] MEDS ORDERED: ANTI-INHIBITOR COAGULANT COMPLEX 100 UNIT INJ IV SCH ×3 (12:00→21:00)
[2016-12-27 12:04] LABS: HEMATOCRIT 28.1 % (39.0-51.0); REVIEW FLAG FINAL
[2016-12-27] MEDS: DRONABINOL 2.5 MG CAP PO SCH ×2 (12:58→17:03)
[2016-12-27 16:00] VITALS: BP 109/64; PULSE 84; RESP 18; TEMP 97.2; O2SAT 99
--- NOTE | 2016-12-27 16:29 | HHI.PR ---
Subjective Remarks doing "pretty good", in very good spirits pain much less and moving more Objective Vitals Vital Signs Date Time Temp Pulse Resp B/P Pulse Ox O2 Delivery O2 Flow Rate FiO2 12/27/16 16:00 97.2 84 18 109/64 99 12/27/16 16:00 16 12/27/16 14:00 16 12/27/16 12:00 97.7 65 16 107/60 99 12/27/16 08:00 97.6 75 18 104/59 94 Manual Cuff/Auscultation 12/27/16 06:00 18 12/27/16 04:00 100.2 89 18 106/71 97 12/27/16 03:01 18 12/27/16 02:31 18 12/27/16 00:00 99.5 89 18 97/56 98 12/26/16 22:21 18 12/26/16 21:22 18 12/26/16 20:00 98.5 85 17 106/57 99 I/O 12/26/16 12/26/16 12/26/16 12/27/16 12/27/16 12/27/16 07:00 15:00 23:00 07:00 15:00 23:00 Intake Total 420 ml 960 ml 480 ml 720 ml 1918 ml Output Total 2150 ml 2100 ml 900 ml 2600 ml 1850 ml Balance -1730 ml -1140 ml -420 ml -1880 ml 68 ml Intake Oral 420 ml 960 ml 480 ml 720 ml 960 ml IV Total 958 ml Output Urine Total 2150 ml 2100 ml 900 ml 2600 ml 1850 ml # Bowel Movements 0 0 Result Diagram: 12/27/16 1131 12/25/16 0635 Imaging Last Impressions Upper Extremity CT 12/26/16 0000 Signed Impressions: Service Date/Time: Monday, December 26, 2016 13:20 - CONCLUSION: Patchy right lung opacity. Right shoulder CT otherwise within normal limits. Salvador Najera MD Lower Extremity CT 12/26/16 0000 Signed Impressions: Service Date/Time: Monday, December 26, 2016 13:09 - CONCLUSION: 1. No fluid collections or hematomas identified. 2. Left hip within normal limits. 3. Severe osteoarthritic findings of the right hip. Salvador Najera MD Head CT 12/26/16 0000 Signed Impressions: Service Date/Time: Tuesday, December 27, 2016 00:03 - CONCLUSION: Unremarkable study. K. Natanael Carr MD Upper Extremity Ultrasound 12/15/16 0000 Signed Impressions: Service Date/Time: Thursday, December 15, 2016 19:08 - CONCLUSION: 1. Negative for deep venous thrombosis. Occlusive and nonocclusive thrombus in the right cephalic vein. Alejandro Neri MD Chest X-Ray 12/11/16 0000 Signed Impressions: Service Date/Time: November 09:04 - CONCLUSION: A faint consolidation within the lingula likely atelectasis with a poor inspiratory effort. Right sided [id number] catheter in excellent position. Garrett Altman MD Abdomen/Pelvis CT 12/10/16 0000 Signed Impressions: Service Date/Time: Saturday, December 10, 2016 18:59 - CONCLUSION: 1. No evidence of acute abdominal or pelvic process. No masses are identified. Scot Flores MD Objective Remarks oriented x 3, appears comfortable anicteric, left upper molar decayed chest wall- post op dressing in place (port removed) chest wall- - elliptical superficial wound- s/p debridement, no surrounding erythema, good granulation lungs- decreased breath sounds, no rales regular rhythm abdomen soft, nontender, no guarding extremities- moving and flexing extremities more - specially both UE and right LE very good peripheral pulses all throughout, Procedures 12/23 port removal A/P Problem List: (1) Anemia ICD Code: D64.9 Status: Acute (2) Hemarthrosis ICD Code: M25.00 Status: Acute (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 and NovoSeven 10 mg IV every 4 Amicar 2 gm po q 6 - Hemarthroses- with effusion swelling/pain involving left elbow, left knee,,- - stable Left hip/thigh hematoma with overlying ecchymoses with limitation in ROM- stable Acute on chronic pain No signs of compartment syndrome. Peripheral pulses strong and equal on CLEANER FURNITURE pump Hematology ff History of anxiety disorder Continue on Xanax Smoker counseled extensively patient states he's been getting up around the room. encouraged Problem Qualifiers (1) Anemia: Qualified Code: D64.9 - Anemia, unspecified type (2) Sepsis: Qualified Code: A41.9 - Sepsis, due to unspecified organism (3) Hypotension: Qualified Code: I95.9 - Hypotension, unspecified hypotension type Nicolás Green MD Dec 27, 2016 16:29
[2016-12-27] MEDS: LEVOFLOXACIN 750 MG TAB PO SCH (17:03)
[2016-12-27 20:00] VITALS: BP 111/58; PULSE 77; RESP 18; TEMP 96.7; O2SAT 98
[2016-12-27] MEDS: REMOVE OLD PATCH T-DERMAL SCH (21:00)
[2016-12-27] MEDS: SODIUM CHLOR 0.9% 1000 ML INJ 1,000 ML IV SCH (21:32)
[2016-12-27] MEDS: MICAFUNGIN INJ 100 MG in SODIUM CHLORIDE 0.9% INJ 100 ML IV SCH (21:58)
[2016-12-28] VITALS: BP 110/58; PULSE 77; RESP 17; TEMP 97.4; O2SAT 97
[2016-12-28] MEDS ORDERED: [UNRECOGNIZED DRUG - OTHER] IV SCH ×2
[2016-12-28] MEDS ORDERED: ANTI-INHIBITOR COAGULANT COMPLEX 100 UNIT INJ IV SCH
[2016-12-28] MEDS: [UNRECOGNIZED DRUG - OTHER] IV SCH ×2 (01:06→14:54)
[2016-12-28] MEDS: NICOTINE 4 MG/GUM CHEW PRN ×10 (01:19→22:29)
[2016-12-28] MEDS ORDERED: FACTOR VIIA (RECOMB) 5 MG VIAL IV PUSH SCH ×3 (02:00→06:00)
[2016-12-28] MEDS: ACETAMINOPHEN 325 MG TAB PO PRN ×2 (03:37→22:29)
[2016-12-28 04:00] VITALS: BP 117/56; PULSE 79; RESP 18; TEMP 96.9; O2SAT 97
[2016-12-28] MEDS ORDERED: [UNRECOGNIZED DRUG - OTHER] IV SCH ×2 (04:00→06:00)
[2016-12-28] MEDS: PIPERACIL-TAZO 4.5 GM PREMIX 100 ML IV SCH ×4 (06:26→22:29)
[2016-12-28] MEDS: AMINOCAPROIC ACID 500 MG TAB PO SCH ×4 (06:26→17:40)
[2016-12-28] MEDS: ALPRAZolam 0.5 MG TAB PO SCH ×3 (06:27→22:29)
[2016-12-28] MEDS: PCA - TOTAL MG DILAUDID DELIVERED PER SHIFT SCH ×3 (06:32→22:00)
[2016-12-28] MEDS: SODIUM CHLOR 0.9% 1000 ML INJ 1,000 ML IV SCH ×2 (07:35→20:39)
[2016-12-28 08:00] VITALS: BP 106/62; PULSE 78; RESP 20; TEMP 97; O2SAT 96
--- NOTE | 2016-12-28 08:10 | PD.ONC.PN ---
Subjective Subjective Remarks Afebrile overnight. Pt states the pain is "no better, no worse." Concerned about the factors being given Q12h apart. Objective Data Date Time Temp Pulse Resp B/P Pulse Ox O2 Delivery O2 Flow Rate FiO2 12/28/16 06:32 18 12/28/16 04:00 96.9 79 18 117/56 97 12/28/16 00:00 97.4 77 17 110/58 97 12/27/16 22:00 18 12/27/16 20:00 96.7 77 18 111/58 98 12/27/16 16:30 16 12/27/16 16:00 97.2 84 18 109/64 99 12/27/16 16:00 16 12/27/16 14:00 16 12/27/16 12:00 97.7 65 16 107/60 99 Result Diagram: 12/27/16 1131 12/25/16 0635 Laboratory Results Laboratory Tests Test 12/27/16 11:31 Hemoglobin 9.4 GM/DL Hematocrit 28.1 % Administered Medications Medications (Trade) Dose Ordered Sig/Mike Route PRN Reason Start Time Stop Time Status Last Admin Dose Admin Sodium Chloride (NS Flush) 2 ml UNSCH PRN IVF FLUSH AFTER USING IV ACCESS 12/10/16 13:45 12/25/16 08:49 Morphine Sulfate (Oramorph Sr) 60 mg Q12HR PO 12/10/16 21:00 12/27/16 21:54 Aminocaproic Acid (Amicar) 2,000 mg Q6HR PO 12/10/16 18:45 12/28/16 06:26 Levofloxacin (Levaquin) 750 mg Q24H PO 12/11/16 18:00 12/27/16 17:03 ELECTRIC METER TECHNICIAN Dosage Infused (Pha) 1 Q8HR .XX 12/12/16 07:30 12/28/16 06:32 Miscellaneous Information 1 HS T-DERMAL 12/13/16 21:00 12/16/16 22:02 Nicotine (Nicotine Gum) 4 mg UNSCH PRN CHEW NICOTINE CRAVINGS 12/13/16 13:30 12/28/16 06:26 Silver Sulfadiazine (Silvadene 1% Cream (50 Gm)) 1 applic Q12HR TOPICAL 12/16/16 09:00 12/27/16 10:00 Dronabinol 2.5 mg 2.5 mg BID@11,16 PO 12/19/16 16:00 12/27/16 17:03 Sodium Chloride 1,000 ml @ 84 mls/hr [id number] IV 12/19/16 21:00 12/27/16 21:32 Piperacillin Sod/ Tazobactam Sod 100 ml @ 200 mls/hr Q6H IV 12/23/16 11:00 12/28/16 06:26 Micafungin Sodium/ Sodium Chloride (Mycamine Inj/NS Inj) 100 ml @ 100 mls/hr Q24H IV 12/24/16 20:00 12/27/16 21:58 Acetaminophen (Tylenol) 650 mg Q4H PRN PO FEVER, headache 12/27/16 04:15 12/28/16 03:37 Patient Own Medication PT OWN MED: FEIBA 7,500 UN... Q12H IV 12/27/16 20:00 Future Hold 12/27/16 20:13 Patient Own Medication PT OWN MED: PT OWN M... Q12H IV 12/28/16 02:00 Future Hold 12/28/16 01:06 Alprazolam (Xanax) 0.5 mg Q8H PO 12/27/16 23:00 12/28/16 06:27 Objective Remarks GENERAL: Disheveled appearing young male, lying in bed in no distress watching TV. SKIN: Warm and dry. No obvious ecchymoses. HEAD: Normocephalic. EYES: No scleral icterus. No injection or drainage. NECK: Supple, trachea midline. No JVD or lymphadenopathy. CARDIOVASCULAR: +S1/S2. No murmur noted. RESPIRATORY: Lungs clear. Breathing unlabored. GASTROINTESTINAL: Abdomen soft, non-tender, nondistended. EXTREMITIES: No cyanosis, or edema. MUSCULOSKELETAL: Generalized weakness. L knee with some mild swelling. NEUROLOGICAL: No obvious focal deficit. Awake, alert, and oriented x3. PSYCHIATRIC: Somewhat depressed, flat affect. 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 Plan 1. Continue FEIBA and NIDA 7, alternating every 12 hours. 2. The concern stands for the infected tooth. Ideally we would like to give him increased factors while inpatient and then have OMF surgeon pull any infected teeth. 3. Continue to monitor for fevers. We will plan to eventually replace his port, or possibly place a picc line prior to discharge. 4. Continue current pain regimen. Attending Statement The exam, history, and the medical decision-making described in the above note were completed with the assistance of the mid-level provider. I reviewed and agree with the findings presented. I attest that I had a [id number] encounter with the patient on the same day, and personally performed and documented my assessment and findings in the medical record. Patient seen and examined, tells me he continues to feel weak, has pain in the hips and shoulder and elbow. Has been getting up out of bed to use the bathroom only. Appetite remains poor and he continues to have difficulty chewing on account of the tooth infection and gum infection. He has not had a fever in slightly over 24 hours. Remains on broad-spectrum antibiotics. Blood cultures have remained negative since 12/20/2016. Continue ongoing care. Ideally I would like for him to be seen by oral surgery while he is in the hospital so we can have his infected and broken teeth removed so as to avoid rehospitalization in the near future. Tanisha Moore Dec 28, 2016 08:10 Leno Adam MD Dec 28, 2016 12:38
[2016-12-28 08:33] LABS: AUTOMATED NEUTROPHIL # 3.2 TH/MM3 (1.8-7.7); BASOPHIL % 0.8 % (0.0-2.0); EOSINOPHIL # 0.5 TH/MM3 (0-0.4); EOSINOPHIL % 8.3 % (0.0-4.0); HEMATOCRIT 29.7 % (39.0-51.0); HEMO FLAGS DIFF FINAL; LYMPHOCYTE # 1.6 TH/MM3 (1.0-4.8); MEAN CELL VOLUME 81.2 FL (80.0-100.0); MEAN CORPUSCULAR HEMOGLOBIN 25.9 PG (27.0-34.0); MEAN CORPUSCULAR HGB CONC 31.9 % (32.0-36.0); MONO % 8.8 % (0.0-8.0); NEUT % 54.1 % (16.0-70.0); PLATELET COUNT 181 TH/MM3 (150-450); RED BLOOD COUNT 3.65 MIL/MM3 (4.50-5.90); RED CELL DISTRIBUTION WIDTH 17.7 % (11.6-17.2); WHITE BLOOD COUNT 5.8 TH/MM3 (4.0-11.0)
[2016-12-28] MEDS: HYDROMORPHONE IV SCH (08:40)
[2016-12-28] MEDS: SODIUM CHLORIDE 0.9% IV SCH (08:40)
[2016-12-28] MEDS: [UNRECOGNIZED DRUG - OTHER] IV SCH (08:42)
[2016-12-28 08:43] LABS: BICARBONATE 29.6 MEQ/L (21.0-32.0); POTASSIUM 3.9 MEQ/L (3.5-5.1)
[2016-12-28] MEDS: MORPHINE SULFATE 60 MG CONTROLLED RELEASE TAB PO SCH ×2 (08:43→20:32)
[2016-12-28] MEDS: SILVER SULFADIAZINE 1% CR 50 GM JAR TOPICAL SCH ×2 (08:43→20:46)
[2016-12-28] MEDS: DRONABINOL 2.5 MG CAP PO SCH ×2 (10:48→17:40)
[2016-12-28 12:00] VITALS: BP 108/56; PULSE 80; RESP 16; TEMP 96.5; O2SAT 99
--- NOTE | 2016-12-28 13:04 | HHI.PR ---
Subjective Remarks patient states feels "sore" but more comfortable Objective Vitals Vital Signs Date Time Temp Pulse Resp B/P Pulse Ox O2 Delivery O2 Flow Rate FiO2 12/28/16 12:00 96.5 80 16 108/56 99 12/28/16 09:10 15 12/28/16 08:40 16 12/28/16 08:00 97.0 78 20 106/62 96 12/28/16 06:32 18 12/28/16 04:00 96.9 79 18 117/56 97 12/28/16 00:00 97.4 77 17 110/58 97 12/27/16 22:00 18 12/27/16 20:00 96.7 77 18 111/58 98 12/27/16 16:30 16 12/27/16 16:00 97.2 84 18 109/64 99 12/27/16 16:00 16 12/27/16 14:00 16 I/O 12/27/16 12/27/16 12/27/16 12/28/16 12/28/16 12/28/16 07:00 15:00 23:00 07:00 15:00 23:00 Intake Total 720 ml 1918 ml 720 ml 960 ml Output Total 2600 ml 1850 ml 3680 ml Balance -1880 ml 68 ml 720 ml -2720 ml Intake Oral 720 ml 960 ml 720 ml 960 ml IV Total 958 ml Output Urine Total 2600 ml 1850 ml 3680 ml # Bowel Movements 0 Result Diagram: 12/28/16 0719 12/28/16 0719 Imaging Last Impressions Upper Extremity CT 12/26/16 0000 Signed Impressions: Service Date/Time: Monday, December 26, 2016 13:20 - CONCLUSION: Patchy right lung opacity. Right shoulder CT otherwise within normal limits. Salvador Najera MD Lower Extremity CT 12/26/16 0000 Signed Impressions: Service Date/Time: Monday, December 26, 2016 13:09 - CONCLUSION: 1. No fluid collections or hematomas identified. 2. Left hip within normal limits. 3. Severe osteoarthritic findings of the right hip. Salvador Najera MD Head CT 12/26/16 0000 Signed Impressions: Service Date/Time: Tuesday, December 27, 2016 00:03 - CONCLUSION: Unremarkable study. KChucky Carr MD Upper Extremity Ultrasound 12/15/16 0000 Signed Impressions: Service Date/Time: Thursday, December 15, 2016 19:08 - CONCLUSION: 1. Negative for deep venous thrombosis. Occlusive and nonocclusive thrombus in the right cephalic vein. Alejandro Neri MD Chest X-Ray 12/11/16 0000 Signed Impressions: Service Date/Time: November 09:04 - CONCLUSION: A faint consolidation within the lingula likely atelectasis with a poor inspiratory effort. Right sided [id number] catheter in excellent position. Garrett Altman MD Abdomen/Pelvis CT 12/10/16 0000 Signed Impressions: Service Date/Time: Saturday, December 10, 2016 18:59 - CONCLUSION: 1. No evidence of acute abdominal or pelvic process. No masses are identified. Scot Flores MD Objective Remarks oriented x 3, appears comfortable anicteric, left upper molar decayed chest wall- - elliptical superficial wound- s/p debridement, no surrounding erythema, good granulation lungs- decreased breath sounds, no rales regular rhythm abdomen soft, nontender, no guarding extremities- moving and flexing extremities more - - LE- moving toes and ankles , more, sore when knees flexed very good peripheral pulses all throughout, Procedures 12/23 port removal A/P Problem List: (1) Anemia ICD Code: D64.9 Status: Acute (2) Hemarthrosis ICD Code: M25.00 Status: Acute (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 and NovoSeven 10 mg IV every 4 Amicar 2 gm po q 6 - Hemarthroses- with effusion swelling/pain involving left elbow, left knee,,- - stable Left hip/thigh hematoma with overlying ecchymoses with limitation in ROM- stable Acute on chronic pain No signs of compartment syndrome. Peripheral pulses strong and equal on LIQUID LOADER pump Hematology ff History of anxiety disorder Continue on Xanax Poor dentition- Oral surgery consult in am. reviewed Hematology notes Smoker counseled extensively patient states he's been getting up around the room. encouraged Problem Qualifiers (1) Anemia: Qualified Code: D64.9 - Anemia, unspecified type (2) Sepsis: Qualified Code: A41.9 - Sepsis, due to unspecified organism (3) Hypotension: Qualified Code: I95.9 - Hypotension, unspecified hypotension type Nicolás Green MD Dec 28, 2016 13:04
[2016-12-28 16:00] VITALS: BP 127/72; PULSE 71; RESP 16; TEMP 97.4; O2SAT 98
[2016-12-28] MEDS: LEVOFLOXACIN 750 MG TAB PO SCH (17:41)
--- NOTE | 2016-12-28 18:27 | HHI.PR ---
Addendum to Inpatient Note Addendum Reason: Additional Documentation Additional Information Cultures reviewed Steno maltophilia Start Levaquin high dose. Possible discharge regimen. Kettle Fry Cook Operator about avoiding antacids, tums, H2 blockers or PPI 1 hour before or after Levaquin. Cannot be replaced by Cipro. No milk or milk products for an hour before or after Cipro. to resume care in am. Rosy Hoyt MD Dec 28, 2016 18:27
[2016-12-28] MEDS ORDERED: LEVOFLOXACIN 750 MG TAB PO SCH (18:30)
[2016-12-28] MEDS: MICAFUNGIN INJ 100 MG in SODIUM CHLORIDE 0.9% INJ 100 ML IV SCH (19:19)
[2016-12-28 20:00] VITALS: BP 107/62; PULSE 76; RESP 18; TEMP 97.2; O2SAT 97
[2016-12-28] MEDS: ANTI-INHIBITOR COAGULANT COMPLEX 100 UNIT INJ IV SCH (20:31)
[2016-12-28] MEDS: REMOVE OLD PATCH T-DERMAL SCH (20:46)
[2016-12-29] VITALS: BP 109/56; PULSE 79; RESP 18; TEMP 97.3; O2SAT 98
[2016-12-29] MEDS: FACTOR VIIA (RECOMB) 5 MG VIAL IV PUSH SCH ×2 (01:00→14:13)
[2016-12-29] MEDS: NICOTINE 4 MG/GUM CHEW PRN ×5 (01:00→22:31)
[2016-12-29] MEDS: SODIUM CHLORIDE 0.9% IV SCH (03:38)
[2016-12-29] MEDS: HYDROMORPHONE IV SCH (03:38)
[2016-12-29 04:00] VITALS: BP 112/58; PULSE 72; RESP 17; TEMP 97.2; O2SAT 97
[2016-12-29] MEDS: PIPERACIL-TAZO 4.5 GM PREMIX 100 ML IV SCH ×3 (05:00→17:25)
[2016-12-29] MEDS: ALPRAZolam 0.5 MG TAB PO SCH ×3 (05:35→22:30)
[2016-12-29] MEDS: AMINOCAPROIC ACID 500 MG TAB PO SCH ×5 (05:35→22:31)
[2016-12-29] MEDS: PCA - TOTAL MG DILAUDID DELIVERED PER SHIFT SCH ×3 (06:00→22:00)
[2016-12-29 08:00] VITALS: BP 118/59; PULSE 83; RESP 16; TEMP 98.9; O2SAT 98
[2016-12-29] MEDS: SODIUM CHLOR 0.9% 1000 ML INJ 1,000 ML IV SCH ×2 (08:41→19:58)
[2016-12-29] MEDS: MORPHINE SULFATE 60 MG CONTROLLED RELEASE TAB PO SCH ×2 (08:41→19:55)
[2016-12-29] MEDS: ANTI-INHIBITOR COAGULANT COMPLEX 100 UNIT INJ IV SCH ×2 (08:41→19:53)
[2016-12-29] MEDS: SILVER SULFADIAZINE 1% CR 50 GM JAR TOPICAL SCH ×2 (09:00→21:00)
[2016-12-29] MEDS: DRONABINOL 2.5 MG CAP PO SCH ×2 (11:13→17:26)
[2016-12-29 12:00] VITALS: BP 111/60; PULSE 79; RESP 18; TEMP 98.8; O2SAT 98
--- NOTE | 2016-12-29 12:03 | PD.ONC.PN ---
Subjective Subjective Remarks Afebrile overnight. Patient upset that he his VP DESIGN settings were reduced last night. He has been having occasional frontal headaches which he attributes to his antibiotics and factor support. He wants me to increase his pain medications. He does not want me to examine his hips as he states he is in too much pain. He states he did get up to go to the bathroom with assistance this morning. He states he has not been eating because he is in too much pain. He states the pain is primarily in his right shoulder and left hip. Objective Data Date Time Temp Pulse Resp B/P Pulse Ox O2 Delivery O2 Flow Rate FiO2 12/29/16 08:00 98.9 83 16 118/59 98 12/29/16 06:00 18 12/29/16 04:00 97.2 72 17 112/58 97 12/29/16 03:38 18 12/29/16 00:00 97.3 79 18 109/56 98 12/28/16 22:00 17 12/28/16 20:00 97.2 76 18 107/62 97 12/28/16 16:00 97.4 71 16 127/72 98 12/28/16 14:58 16 12/28/16 12:00 96.5 80 16 108/56 99 Result Diagram: 12/28/16 0719 12/28/16718 Administered Medications Medications (Trade) Dose Ordered Sig/Mike Route PRN Reason Start Time Stop Time Status Last Admin Dose Admin Sodium Chloride (NS Flush) 2 ml UNSCH PRN IVF FLUSH AFTER USING IV ACCESS 12/10/16 13:45 12/25/16 08:49 Morphine Sulfate (Oramorph Sr) 60 mg Q12HR PO 12/10/16 21:00 12/29/16 08:41 Aminocaproic Acid (Amicar) 2,000 mg Q6HR PO 12/10/16 18:45 12/29/16 05:35 Levofloxacin (Levaquin) 750 mg Q24H PO 12/11/16 18:00 12/28/16 17:41 VP DESIGN Dosage Infused (Pha) 1 Q8HR .XX 12/12/16 07:30 12/29/16 06:00 Miscellaneous Information 1 HS T-DERMAL 12/13/16 21:00 12/16/16 22:02 Nicotine (Nicotine Gum) 4 mg UNSCH PRN CHEW NICOTINE CRAVINGS 5/20/17 13:30 12/29/16 01:00 Silver Sulfadiazine (Silvadene 1% Cream (50 Gm)) 1 applic Q12HR TOPICAL 12/16/16 09:00 12/27/16 10:00 Dronabinol 2.5 mg 2.5 mg BID@11,16 PO 12/19/16 16:00 12/29/16 11:13 Sodium Chloride 1,000 ml @ 84 mls/hr [id number] IV 12/19/16 21:00 12/29/16 08:41 Piperacillin Sod/ Tazobactam Sod 100 ml @ 200 mls/hr Q6H IV 12/23/16 11:00 12/29/16 11:13 Micafungin Sodium/ Sodium Chloride (Mycamine Inj/NS Inj) 100 ml @ 100 mls/hr Q24H IV 12/24/16 20:00 12/28/16 19:19 Acetaminophen (Tylenol) 650 mg Q4H PRN PO FEVER, headache 12/27/16 04:15 12/28/16 22:29 Patient Own Medication PT OWN MED: FEIBA 7,500 UN... Q12H IV 12/27/16 20:00 Hold 12/28/16 08:42 Patient Own Medication PT OWN MED: PT OWN M... Q12H IV 12/28/16 02:00 Hold 12/28/16 14:54 Alprazolam (Xanax) 0.5 mg Q8H PO 12/27/16 23:00 12/29/16 05:35 Anti-Inhibitor Coagulant Complex (Feiba Nf Inj) 7,500 units Q12H IV 12/28/16 20:00 12/29/16 08:41 Factor VII (Pha) (Novoseven Rt Inj) 10 mg Q12H IV PUSH 12/29/16 02:00 12/29/16 01:00 Objective Remarks GENERAL: Young man, lethargic, lying in bed. he appears to be in nad and was sleeping upon my entering the room. SKIN: Warm and dry. IV's in place in left and right upper extremities. no bleeding. HEAD: Normocephalic. EYES: No injection or drainage. NECK: Supple, trachea midline. CARDIOVASCULAR: +S1/S2. RESPIRATORY: anterior machado clear. GASTROINTESTINAL: Abdomen soft, non-tender, nondistended. EXTREMITIES: No cyanosis. chronic joint changes noted. unable to examine hips due to patient refusal. NEUROLOGICAL: awake and alert, normal speech. 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 Plan 1. Continue FEIBA and NIDA 7, alternating every 12 hours. 2. continue antibiotics per ID--hopefully can transition to oral antibiotics soon. 3. continue current pain regimen. will need to wean off VP DESIGN prior to discharge. the patient would like me to increase his VP DESIGN settings. I explained to him that I do not feel comfortable doing this. I do understand he has pain, especially chronic pain; however, clinically and radiographically his bleeding seems to have stopped. In addition, he seems very lethargic when I examine him. Would recommend continuing to wean VP DESIGN and transition back to oral pain medications. 4. Dr. Adam d/w Dr. Julian--plan for tooth extraction tomorrow at 4PM Nallely Brand Dec 29, 2016 12:03
[2016-12-29 16:00] VITALS: BP 110/54; PULSE 75; RESP 18; TEMP 99.1; O2SAT 98
--- NOTE | 2016-12-29 17:18 | HHI.PR ---
Subjective Remarks resting comfortably on WELL SHOOTER pump- pain on right shoulder, left bicep and hip denies any nausea or vomiting Objective Vitals Vital Signs Date Time Temp Pulse Resp B/P Pulse Ox O2 Delivery O2 Flow Rate FiO2 12/29/16 14:00 16 12/29/16 08:00 98.9 83 16 118/59 98 12/29/16 06:00 18 12/29/16 04:00 97.2 72 17 112/58 97 12/29/16 03:38 18 12/29/16 00:00 97.3 79 18 109/56 98 12/28/16 22:00 17 12/28/16 20:00 97.2 76 18 107/62 97 I/O 12/28/16 12/28/16 12/28/16 12/29/16 12/29/16 12/29/16 07:00 15:00 23:00 07:00 15:00 23:00 Intake Total 960 ml 2393 ml 960 ml 2119 ml Output Total 3680 ml 2500 ml 2600 ml 1800 ml Balance -2720 ml 2393 ml -1540 ml -481 ml -1800 ml Intake Oral 960 ml 1430 ml 960 ml 720 ml IV Total 963 ml 1399 ml Output Urine Total 3680 ml 2500 ml 2600 ml 1800 ml # Voids 3 # Bowel Movements 0 Result Diagram: 12/28/1671812/28/16 0719 Imaging Last Impressions Upper Extremity CT 12/26/16 0000 Signed Impressions: Service Date/Time: Monday, December 26, 2016 13:20 - CONCLUSION: Patchy right lung opacity. Right shoulder CT otherwise within normal limits. Salvador Najera MD Lower Extremity CT 12/26/16 0000 Signed Impressions: Service Date/Time: Monday, December 26, 2016 13:09 - CONCLUSION: 1. No fluid collections or hematomas identified. 2. Left hip within normal limits. 3. Severe osteoarthritic findings of the right hip. Salvador Najera MD Head CT 12/26/16 0000 Signed Impressions: Service Date/Time: Tuesday, December 27, 2016 00:03 - CONCLUSION: Unremarkable study. Asia Carr MD Upper Extremity Ultrasound 12/15/16 0000 Signed Impressions: Service Date/Time: Thursday, December 15, 2016 19:08 - CONCLUSION: 1. Negative for deep venous thrombosis. Occlusive and nonocclusive thrombus in the right cephalic vein. Alejandro Neri MD Chest X-Ray 12/11/16 0000 Signed Impressions: Service Date/Time: November 09:04 - CONCLUSION: A faint consolidation within the lingula likely atelectasis with a poor inspiratory effort. Right sided Czclls-s-Xhxw catheter in excellent position. Garrett Altman MD Abdomen/Pelvis CT 12/10/16 0000 Signed Impressions: Service Date/Time: Saturday, December 10, 2016 18:59 - CONCLUSION: 1. No evidence of acute abdominal or pelvic process. No masses are identified. 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 (4) Sepsis ICD Code: A41.9 Status: Acute (5) Poor appetite ICD Code: R63.0 Status: Acute (6) Hypotension ICD Code: I95.9 Status: Acute (7) Tooth infection ICD Code: K04.7 Status: Acute Assessment and Plan 26-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 and NovoSeven 10 mg IV every 4 Amicar 2 gm po q 6 - Hemarthroses- with effusion swelling/pain involving left elbow, left knee,,- - stable Left hip/thigh hematoma with overlying ecchymoses with limitation in ROM- stable Acute on chronic pain No signs of compartment syndrome. Peripheral pulses strong and equal on WELL SHOOTER pump Hematology ff History of anxiety disorder Continue on Xanax Poor dentition- Oral surgery consult in am. reviewed Hematology notes Smoker counseled extensively patient states he's been getting up around the room. encouraged Problem Qualifiers (1) Anemia: Qualified Code: D64.9 - Anemia, unspecified type (2) Sepsis: Qualified Code: A41.9 - Sepsis, due to unspecified organism (3) Hypotension: Qualified Code: I95.9 - Hypotension, unspecified hypotension type Nicolás Green MD Dec 29, 2016 17:18
[2016-12-29] MEDS: LEVOFLOXACIN 750 MG TAB PO SCH (17:26)
--- NOTE | 2016-12-29 17:36 | HHI.IDPN ---
Subjective Subjective Remarks Notes reviewed Afebrile S/P removal of port 12/23 - C/S from pocket with Serratia, Sten mal and Achromobacter - C/S tip - Sten mal and Achromobacter Pain is better Last (+) BC 12/20 Antibiotics Zosyn Levaquin Micafungin Lines Port - removed 12/23 Past Medical History Reviewed Allergies: Coded Allergies: Nonsteroidal Anti-Inflammatory Agts (Verified Adverse Reaction, Severe, bleeding, 11/18/16) Objective . Vital Signs Date Time Temp Pulse Resp B/P Pulse Ox O2 Delivery O2 Flow Rate FiO2 12/29/16 14:00 16 12/29/16 08:00 98.9 83 16 118/59 98 12/29/16 06:00 18 12/29/16 04:00 97.2 72 17 112/58 97 12/29/16 03:38 18 12/29/16 00:00 97.3 79 18 109/56 98 12/28/16 22:00 17 12/28/16 20:00 97.2 76 18 107/62 97 12/28/16 12/28/16 12/29/16 15:00 23:00 07:00 Intake Total 2393 ml 960 ml 2119 ml Output Total 2500 ml 2600 ml Balance 2393 ml -1540 ml -481 ml Intake Oral 1430 ml 960 ml 720 ml IV Total 963 ml 1399 ml Output Urine Total 2500 ml 2600 ml # Voids 3 # Bowel Movements 0 . Laboratory Tests Test 12/28/16 07:19 White Blood Count 5.8 TH/MM3 Red Blood Count 3.65 MIL/MM3 Hemoglobin 9.5 GM/DL Hematocrit 29.7 % Mean Corpuscular Volume 81.2 FL Mean Corpuscular Hemoglobin 25.9 PG Mean Corpuscular Hemoglobin 31.9 % Concent Red Cell Distribution Width 17.7 % Platelet Count 181 TH/MM3 Mean Platelet Volume 7.7 FL Neutrophils (%) (Auto) 54.1 % Lymphocytes (%) (Auto) 28.0 % Monocytes (%) (Auto) 8.8 % Eosinophils (%) (Auto) 8.3 % Basophils (%) (Auto) 0.8 % Neutrophils # (Auto) 3.2 TH/MM3 Lymphocytes # (Auto) 1.6 TH/MM3 Monocytes # (Auto) 0.5 TH/MM3 Eosinophils # (Auto) 0.5 TH/MM3 Basophils # (Auto) 0.0 TH/MM3 CBC Comment DIFF FINAL Differential Comment Laboratory Tests Test 12/28/16 07:19 Sodium Level 138 MEQ/L Potassium Level 3.9 MEQ/L Chloride Level 102 MEQ/L Carbon Dioxide Level 29.6 MEQ/L Anion Gap 6 MEQ/L Blood Urea Nitrogen 6 MG/DL Creatinine 0.44 MG/DL Estimat Glomerular Filtration 235 ML/MIN Rate Random Glucose 98 MG/DL Calcium Level 9.4 MG/DL Imaging Last Impressions Chest X-Ray 12/11/16 0000 Signed Impressions: Service Date/Time: November 09:04 - CONCLUSION: A faint consolidation within the lingula likely atelectasis with a poor inspiratory effort. Right sided Fcgeva-l-Zlzu catheter in excellent position. Garrett Altman MD Upper Extremity CT 12/10/16 0000 Signed Impressions: Service Date/Time: Saturday, December 10, 2016 19:14 - CONCLUSION: 1. Joint effusion. There is no evidence of acute fracture. Scot Flores MD Lower Extremity CT 12/10/16 0000 Signed Impressions: Service Date/Time: Saturday, December 10, 2016 19:04 - CONCLUSION: 1. 7.2 x 4.2 symmetr hematoma in left leads mediastinal Scot Flores MD Abdomen/Pelvis CT 12/10/16 0000 Signed Impressions: Service Date/Time: Saturday, December 10, 2016 18:59 - CONCLUSION: 1. No evidence of acute abdominal or pelvic process. No masses are identified. Scot Flores MD Physical Exam GENERAL: awakens easily, NAD SKIN: Warm and dry. Dry dressing on his R chest HEENT: [place] conjunctiva. No petechia or hemorrhage. No scleral icterus. No injection or drainage. No oral lesions noted. NECK: Trachea midline. Supple and not tender, no meningeal signs CARDIOVASCULAR: Regular rate and rhythm. No murmurs, rubs or gallops heard RESPIRATORY: Clear to auscultation. Breath sounds equal bilaterally. No rales , wheezing or rhonchi ABDOMEN: Soft, non-tender, nondistended. Bowel sounds present and normoactive. No guarding. No rebound. No organomegaly. EXTREMITIES: No clubbing, cyanosis, or edema. L elbow looks less effusion, has very limited ROM due to the pain. His L knee same NEUROLOGICAL: Non-focal LINE: dry dressing over his R chest Assessment & Plan Remarks IMPRESSION Sepsis on presentation and has different organisms from his port - has port infection, S/P removal Hemophilia with recurrent spontaneous hemarthrosis, and other bleeding - joint pains seem better Chronic pain, and chronic narcotic use Fevers, temps better RECOMMENDATION Stop Zosyn Continue Micafungin - give until Jan 04 Continue Levaquin - give until February 02 End dates ordered in [employer] Monitor progress Seem to be doing well Can start working on D/C if other issues stable Likely need PICC for his clotting factors D/W Kamini Pruett MD Dec 29, 2016 17:36
[2016-12-29] MEDS: MICAFUNGIN INJ 100 MG in SODIUM CHLORIDE 0.9% INJ 100 ML IV SCH (19:56)
[2016-12-29 20:00] VITALS: BP 96/51; PULSE 84; RESP 16; TEMP 97.8; O2SAT 98
[2016-12-29] MEDS: REMOVE OLD PATCH T-DERMAL SCH (21:00)
[2016-12-30] VITALS: BP 113/56; PULSE 76; RESP 16; TEMP 97.8; O2SAT 99
[2016-12-30] MEDS: HYDROMORPHONE IV SCH ×2 (00:21→23:08)
[2016-12-30] MEDS: SODIUM CHLORIDE 0.9% IV SCH ×2 (00:21→23:08)
[2016-12-30] MEDS: NICOTINE 4 MG/GUM CHEW PRN ×8 (00:35→15:09)
[2016-12-30] MEDS: FACTOR VIIA (RECOMB) 5 MG VIAL IV PUSH SCH ×2 (02:15→15:09)
[2016-12-30 04:00] VITALS: BP 115/64; PULSE 97; RESP 18; TEMP 98.1; O2SAT 99
[2016-12-30] MEDS: AMINOCAPROIC ACID 500 MG TAB PO SCH ×2 (04:54→11:12)
[2016-12-30] MEDS: ALPRAZolam 0.5 MG TAB PO SCH ×3 (04:56→22:03)
[2016-12-30] MEDS: SODIUM CHLOR 0.9% 1000 ML INJ 1,000 ML IV SCH ×2 (04:56→08:09)
[2016-12-30] MEDS: PCA - TOTAL MG DILAUDID DELIVERED PER SHIFT SCH ×3 (04:59→22:00)
--- NOTE | 2016-12-30 07:48 | PD.ONC.PN ---
Subjective Subjective Remarks Patient continues to have pain in the left hip, left knee and left elbow as well as right shoulder. Clinically does not appear to have a significant bleed as his hemoglobin and hematocrit are stable. He was evaluated by oral surgery earlier this morning and is scheduled for extraction of 2 teeth at 4 PM today. He has been afebrile since 12/27/2016. Objective Data Date Time Temp Pulse Resp B/P Pulse Ox O2 Delivery O2 Flow Rate FiO2 12/30/16 04:00 98.1 97 18 115/64 99 12/30/16 00:21 16 12/30/16 00:00 97.8 76 16 113/56 99 12/29/16 22:00 16 12/29/16 20:00 97.8 84 16 96/51 98 12/29/16 16:00 99.1 75 18 110/54 98 12/29/16 14:00 16 12/29/16 12:00 98.8 79 18 111/60 98 12/29/16 08:00 98.9 83 16 118/59 98 Result Diagram: 12/28/16 0719 12/28/16718 Administered Medications Medications (Trade) Dose Ordered Sig/Mike Route PRN Reason Start Time Stop Time Status Last Admin Dose Admin Sodium Chloride (NS Flush) 2 ml UNSCH PRN IVF FLUSH AFTER USING IV ACCESS 12/10/16 13:45 12/25/16 08:49 Morphine Sulfate (Oramorph Sr) 60 mg Q12HR PO 12/10/16 21:00 12/29/16 19:55 Aminocaproic Acid (Amicar) 2,000 mg Q6HR PO 12/10/16 18:45 12/30/16 04:54 Levofloxacin (Levaquin) 750 mg Q24H PO 12/11/16 18:00 02/02/17 23:00 12/29/16 17:26 REAL ESTATE ACQUISITION ANALYST Dosage Infused (Pha) 1 Q8HR .XX 12/12/16 07:30 12/30/16 04:59 Miscellaneous Information 1 HS T-DERMAL 12/13/16 21:00 12/16/16 22:02 Nicotine (Nicotine Gum) 4 mg UNSCH PRN CHEW NICOTINE CRAVINGS 12/13/16 13:30 12/30/16 06:18 Silver Sulfadiazine (Silvadene 1% Cream (50 Gm)) 1 applic Q12HR TOPICAL 12/16/16 09:00 12/27/16 10:00 Dronabinol 2.5 mg 2.5 mg BID@11,16 PO 12/19/16 16:00 12/29/16 17:26 Sodium Chloride 1,000 ml @ 84 mls/hr [id number] IV 12/19/16 21:00 12/30/16 04:56 Micafungin Sodium/ Sodium Chloride (Mycamine Inj/NS Inj) 100 ml @ 100 mls/hr Q24H IV 12/24/16 20:00 01/04/17 23:00 12/29/16 19:56 Acetaminophen (Tylenol) 650 mg Q4H PRN PO FEVER, headache 12/27/16 04:15 12/28/16 22:29 Patient Own Medication PT OWN MED: FEIBA 7,500 UN... Q12H IV 12/27/16 20:00 Hold 12/28/16 08:42 Patient Own Medication PT OWN MED: PT OWN M... Q12H IV 12/28/16 02:00 Hold 12/28/16 14:54 Alprazolam (Xanax) 0.5 mg Q8H PO 12/27/16 23:00 12/30/16 04:56 Anti-Inhibitor Coagulant Complex (Feiba Nf Inj) 7,500 units Q12H IV 12/28/16 20:00 12/29/16 19:53 Factor VII (Pha) (Novoseven Rt Inj) 10 mg Q12H IV PUSH 12/29/16 02:00 12/30/16 02:15 Objective Remarks GENERAL PHYSICAL APPEARANCE: Mr. Gonzalez is a young man, he appears comfortable, sitting up in bed. HEENT: Head atraumatic, normocephalic. Conjunctive are pale. Sclerae are anicteric. Oral exam - no pharyngeal erythema. No blood noted in the oral cavity, no blood noted in the nasal passages. There is a left maxillary molar which is essentially decayed down to the gums, there is some erythema appreciated along the gum indicating infection. NECK EXAM: Palpable cervical lymphadenopathy. Chest: Interval removal of infusion port along right side of the chest, surgical dressing is clean, no bruising no hematoma or overt bleeding appreciated. Musculo skeletal: Contractures of the joints of the upper extremities and knees , decreased range of motion. RESPIRATORY EXAM: Good air movement bilaterally, specifically over the bases as well. CARDIOVASCULAR: Tachycardiac, regular, S1-S2. No obvious murmurs, rubs or gallops. ABDOMINAL EXAM: Thin belly, soft and nontender, nondistended. No palpable organ enlargement. FIRE EXTINGUISHER INSTALLER: Generally weak but no localized motor or sensory deficits. Muscle skeletal: Swelling and tenderness noted in the right biceps, tenderness noted of the right shoulder. Assessment/Plan Assessment 26-year-old male with diagnosis of hemophilia A with a high circulating factor VIII inhibitor titer (12.5 Thayer units, >5 Thayer units is considered high) Presents with hematoma in the left gluteal muscle group, hemarthrosis in the left knee and pain in the left elbow. Plan 1. Hemophilia a: Associated with high circulating inhibitor titer; requires treatment with bypassing agents including NovoSeven and FEIBA these agents seem to be very effective in controlling his bleeding even postoperatively. The frequency of course needs to be increased after invasive procedures. 2. Extraction of teeth later today: The plan is to operate at about 4 PM. I would like him to receive NovoSeven within 60 minutes prior to surgery, I will likely dose him with factor every 6-8 hours post surgery until effective hemostasis is achieved. 3. Bacteremia/fungemia: He is on broad-spectrum antibiotics and micafungin and remains afebrile. 4. After his teeth are extracted and he remains afebrile; he will require another port to be placed. 5. Pain control: Hydromorphone REAL ESTATE ACQUISITION ANALYST pump seems effective at this time. Leno Adam MD Dec 30, 2016 07:48
[2016-12-30 08:00] VITALS: BP 122/58; PULSE 85; RESP 18; TEMP 97.7; O2SAT 98
[2016-12-30] MEDS: MORPHINE SULFATE 60 MG CONTROLLED RELEASE TAB PO SCH ×2 (08:09→20:11)
[2016-12-30] MEDS: SILVER SULFADIAZINE 1% CR 50 GM JAR TOPICAL SCH ×2 (08:10→20:12)
[2016-12-30] MEDS: ANTI-INHIBITOR COAGULANT COMPLEX 100 UNIT INJ IV SCH ×2 (08:10→20:10)
--- NOTE | 2016-12-30 08:53 | MB ---
cc: SOILA YE DMD DATE OF CONSULTATION December 30, [address] Adam REASON FOR CONSULTATION History of sepsis and for extraction of two teeth. HISTORY OF PRESENT ILLNESS This is a pleasant 26-year-old male who presented on December 10, 2016, complaining of left hip, knee and elbow pain. He has a history of hemophilia. He is on Feiba and NovoSeven. He has been diagnosis here with sepsis also with cultures coming back of Serratia, Achromobacter, Klebsiella, Shira. The patient reports and points to the left upper lip molar and the lower right mandibular molar. Has not sought treatment for several years. PAST MEDICAL HISTORY 1. Hemophilia A which appears to be severe. 2. Chronic pain. 3. Anxiety disorder. 4. Degenerative joint disease. PAST SURGICAL HISTORY 1. ORIF left femoral neck fracture. 2. Okcyei-X-Bqav placement. 3. Compartment syndrome. 4. Left formal fractured ORIF. 5. Left knee with radiation synovectomy. ALLERGIES No known drug allergies but he cannot have NSAIDs. SOCIAL HISTORY Occasionally smokes marijuana/tobacco. FAMILY HISTORY Also brothers with severe hemophilia A. MEDICATIONS 1. Amicar. 2. Feiba. 3. NovoSeven. 4. . 5. Morphine sulfate. EXAMINATION FACIAL/NECK: No neck edema that is noted. Intraorally multiple stained teeth. Has not had dental cleaning for some time. He points to the left maxillary region, tooth #14; it is broken down. Also the in the lower right mandibular appears to be tooth #31, just the roots retained; the count is broken off. No clinical signs of any swelling or any edema or any pus that is noted. Tooth #20 on the left side is broken. However, the patient wants to get a root canal and crown to get that restored. The tooth #14 and 31 are not restorable at this point. Tissue pink and well-perfused. Temperature is 98.1, pulse 97, respiration 18, blood pressure is 115/64. The oxygen saturation of 99%. LABORATORY DATA White count is 5.8, H&H is 9.5 and 29.7 with platelets of 181. IMPRESSION AND PLAN This at 26-year-old female with a severe history of hemophilia with two non-restorable teeth #14 and 31. Plan for extraction in the main OR. The benefits, risks and the procedure in detail were discussed with the patient including the risk of bleeding, infection. The patient has been advised to see a dentist for maintenance. All questions and concerns were addressed. Soila Ye DMD SMT TECHNICIAN/SSB /7:12 AM /8:34 AM NISHA
--- NOTE | 2016-12-30 09:25 | MB ---
cc: SOILA YE DMD DATE OF CONSULTATION: 12/30/2016 ADDENDUM: The plan is to take the patient to the main operating room today for extraction of his two teeth. Dr. Adam has already started him on Factor VII to help the procedure. The patient has been on that. Already started on antibiotics. Soila Ye DMD TEACHING MANAGER/ /7:20 AM /9:23 AM
[2016-12-30 09:56] LABS: APTT (PATIENT) 68.8 SEC (24.3-30.1)
[2016-12-30] MEDS: DRONABINOL 2.5 MG CAP PO SCH ×2 (11:00→15:09)
--- NOTE | 2016-12-30 11:31 | HHI.PR ---
Objective Vitals Vital Signs Date Time Temp Pulse Resp B/P Pulse Ox O2 Delivery O2 Flow Rate FiO2 12/30/16 08:00 97.7 85 18 122/58 98 12/30/16 04:00 98.1 97 18 115/64 99 12/30/16 00:21 16 12/30/16 00:00 97.8 76 16 113/56 99 12/29/16 22:00 16 12/29/16 20:00 97.8 84 16 96/51 98 12/29/16 16:00 99.1 75 18 110/54 98 12/29/16 14:00 16 12/29/16 12:00 98.8 79 18 111/60 98 I/O 12/29/16 12/29/16 12/29/16 12/30/16 12/30/16 12/30/16 07:00 15:00 23:00 07:00 15:00 23:00 Intake Total 2119 ml 1440 ml 480 ml 2095 ml Output Total 2600 ml 5800 ml 1700 ml Balance -481 ml -4360 ml -1220 ml 2095 ml Intake Oral 720 ml 1440 ml 480 ml IV Total 1399 ml 2095 ml Output Urine Total 2600 ml 5800 ml 1700 ml Result Diagram: 12/28/16 0712/28/16718 Nicolás Green MD Dec 30, 2016 11:31 Objective Remarks oriented x 3, appears comfortable, smiled anicteric chest wall- - elliptical superficial wound- s/p debridement, no surrounding erythema, good granulation 12/28 exam lungs- decreased breath sounds, no rales regular rhythm abdomen soft, nontender, no guarding extremities- moving and flexing extremities more - - LE- moving toes and ankles , more, sore when knees flexed very good peripheral pulses all throughout, Procedures 12/23 port removal A/P Problem List: (1) Anemia ICD Code: D64.9 Status: Acute (2) Hemarthrosis ICD Code: M25.00 Status: Acute (3) 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 (4) Sepsis ICD Code: A41.9 Status: Acute (5) Poor appetite ICD Code: R63.0 Status: Acute (6) Hypotension ICD Code: I95.9 Status: Acute (7) Tooth infection ICD Code: K04.7 Status: Acute Assessment and Plan 26-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 and NovoSeven 10 mg IV every 4 Amicar 2 gm po q 6 - Hemarthroses- with effusion swelling/pain involving left elbow, left knee,,- - stable Left hip/thigh hematoma with overlying ecchymoses with limitation in ROM- stable Acute on chronic pain No signs of compartment syndrome. Peripheral pulses strong and equal on TRACK LEADER pump Hematology ff History of anxiety disorder Continue on Xanax Poor dentition- Oral surgery consult in am. reviewed Hematology notes Smoker counseled extensively patient states he's been getting up around the room. encouraged Problem Qualifiers (1) Anemia: Qualified Code: D64.9 - Anemia, unspecified type (2) Sepsis: Qualified Code: A41.9 - Sepsis, due to unspecified organism (3) Hypotension: Qualified Code: I95.9 - Hypotension, unspecified hypotension type Nicolás Green MD Dec 30, 2016 11:31
[2016-12-30] MEDS ORDERED: ONDANSETRON HCL 4 MG/2 ML VIAL IV PUSH ONE (12:00)
[2016-12-30] MEDS ORDERED: PROPOFOL 200 MG/20 ML AMP IV ONE (12:00)
[2016-12-30] MEDS ORDERED: NEOSTIGMINE 3 MG/3 ML SYR IV ONE (12:00)
--- NOTE | 2016-12-30 15:26 | HHI.PR ---
Subjective Remarks jodi very comfortable on current pain regimen looking forward to going for surgery this pm- tooth extraction Objective Vitals Vital Signs Date Time Temp Pulse Resp B/P Pulse Ox O2 Delivery O2 Flow Rate FiO2 12/30/16 14:42 16 12/30/16 08:00 97.7 85 18 122/58 98 12/30/16 04:00 98.1 97 18 115/64 99 12/30/16 00:21 16 12/30/16 00:00 97.8 76 16 113/56 99 12/29/16 22:00 16 12/29/16 20:00 97.8 84 16 96/51 98 12/29/16 16:00 99.1 75 18 110/54 98 I/O 12/29/16 12/29/16 12/29/16 12/30/16 12/30/16 12/30/16 07:00 15:00 23:00 07:00 15:00 23:00 Intake Total 2119 ml 1440 ml 480 ml 2095 ml Output Total 2600 ml 5800 ml 1700 ml 1000 ml Balance -481 ml -4360 ml -1220 ml 2095 ml -1000 ml Intake Oral 720 ml 1440 ml 480 ml IV Total 1399 ml 2095 ml Output Urine Total 2600 ml 5800 ml 1700 ml 1000 ml Result Diagram: 12/28/16 0712/28/16 07 Imaging Last Impressions Upper Extremity CT 12/26/16 0000 Signed Impressions: Service Date/Time: Monday, December 26, 2016 13:20 - CONCLUSION: Patchy right lung opacity. Right shoulder CT otherwise within normal limits. Salvador Najera MD Lower Extremity CT 12/26/16 0000 Signed Impressions: Service Date/Time: Monday, December 26, 2016 13:09 - CONCLUSION: 1. No fluid collections or hematomas identified. 2. Left hip within normal limits. 3. Severe osteoarthritic findings of the right hip. Salvador Najera MD Head CT 12/26/16 0000 Signed Impressions: Service Date/Time: Tuesday, December 27, 2016 00:03 - CONCLUSION: Unremarkable study. Asia Carr MD Upper Extremity Ultrasound 12/15/16 0000 Signed Impressions: Service Date/Time: Thursday, December 15, 2016 19:08 - CONCLUSION: 1. Negative for deep venous thrombosis. Occlusive and nonocclusive thrombus in the right cephalic vein. Alejandro Neri MD Chest X-Ray 12/11/16 0000 Signed Impressions: Service Date/Time: November 09:04 - CONCLUSION: A faint consolidation within the lingula likely atelectasis with a poor inspiratory effort. Right sided Ugqsvm-s-Pdku catheter in excellent position. Garrett Altman MD Abdomen/Pelvis CT 12/10/16 0000 Signed Impressions: Service Date/Time: Saturday, December 10, 2016 18:59 - CONCLUSION: 1. No evidence of acute abdominal or pelvic process. No masses are identified. 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 (4) Sepsis ICD Code: A41.9 Status: Acute (5) Poor appetite ICD Code: R63.0 Status: Acute (6) Hypotension ICD Code: I95.9 Status: Acute (7) Tooth infection ICD Code: K04.7 Status: Acute Assessment and Plan 26-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 and NovoSeven 10 mg IV every 4 Amicar 2 gm po q 6 - Hemarthroses- with effusion swelling/pain involving left elbow, left knee,,- - stable Left hip/thigh hematoma with overlying ecchymoses with limitation in ROM- stable Acute on chronic pain No signs of compartment syndrome. Peripheral pulses strong and equal on SLATE SPLITTER pump Hematology ff History of anxiety disorder Continue on Xanax Poor dentition- Oral surgery consult in am. reviewed Hematology notes Smoker counseled extensively patient states he's been getting up around the room. encouraged Problem Qualifiers (1) Anemia: Qualified Code: D64.9 - Anemia, unspecified type (2) Sepsis: Qualified Code: A41.9 - Sepsis, due to unspecified organism (3) Hypotension: Qualified Code: I95.9 - Hypotension, unspecified hypotension type Nicolás Green MD Dec 30, 2016 15:26
[2016-12-30] MEDS ORDERED: LIDOCAINE 2%/EPINEPHrine 1:100,000 30ML MDV ONE (15:28)
[2016-12-30] MEDS ORDERED: MICROFIBRILLAR COLLAGEN HEMOSTAT 1 GM PKT ONE (16:02)
[2016-12-30] MEDS ORDERED: GELATIN 12 MM/7 MM FOAM ONE (16:02)
[2016-12-30] MEDS ORDERED: THROMBIN (TOPICAL) 5,000 UNIT VIAL ONE (16:02)
[2016-12-30] MEDS ORDERED: BUPIVACAINE HCL PF 0.25% 30 ML VIAL ONE (16:25)
[2016-12-30] MEDS ORDERED: CHLORHEXIDINE GLUCONATE 0.12% 15 ML CUP ONE (16:25)
[2016-12-30] MEDS ORDERED: BUPIVACAINE/EPINEPHRINE 0.25% 50 ML VIAL ONE (16:31)
[2016-12-30] MEDS ORDERED: BUPIVACAINE/EPINEPHRINE 0.5% PF 30 ML VIAL ONE (16:33)
[2016-12-30] MEDS ORDERED: *HYDROmorphone PF 1 MG VIAL PERIprocedural Use ONLY ONE ×2 (17:14→17:28)
--- NOTE | 2016-12-30 17:19 | HHI.PR ---
Immediate Post Op Note Procedure Date: Dec 30, 2016 Pre Op Diagnosis: decayed/periodontally teeth # Post Op Diagnosis: SHARAN Surgeon: Anurag Ye Patient Accounts Manager(s): neptali canales Procedure: extraction of teeth # Complications: none Estimated blood loss: minimal Anesthesia: General, Local (2%lidocaine with 1:100,000,, 5cc 0.5%marcaine with 1:200,000 epi 2cc) Patient to: PACU Patient Condition: Good Anurag Ye DMD Dec 30, 2016 17:19
[2016-12-30] MEDS ORDERED: MIDAZOLAM HCL 2 MG/2 ML VIAL ONE (17:23)
[2016-12-30] MEDS ORDERED: fentaNYL CITRATE 250 MCG/5 ML AMP ONE (17:23)
[2016-12-30] MEDS ORDERED: MORPHINE SULFATE 4 MG/ML INJ ONE (17:24)
[2016-12-30] MEDS ORDERED: HYDROmorphone HCL PF 1 MG/ML VIAL IV ONE ×2 (17:30)
[2016-12-30] MEDS: LEVOFLOXACIN 750 MG TAB PO SCH (18:00)
[2016-12-30] MEDS ORDERED: DO NOT ADM ANY ANTICOAGULANT DRUGS PRN ×2 (18:00)
[2016-12-30] MEDS ORDERED: HYDROmorphone HCL PF 2 MG/ML VIAL IV PUSH ONE (18:15)
[2016-12-30 20:00] VITALS: BP 165/88; PULSE 92; RESP 20; TEMP 98.4; O2SAT 97
[2016-12-30] MEDS: MICAFUNGIN INJ 100 MG in SODIUM CHLORIDE 0.9% INJ 100 ML IV SCH (20:08)
[2016-12-30] MEDS: REMOVE OLD PATCH T-DERMAL SCH (20:14)
[2016-12-30] MEDS ORDERED: HYDROmorphone HCL PF 2 MG/ML VIAL IV STA (21:46)
--- NOTE | 2016-12-30 22:45 | MP ---
cc: SOILA YE DMD DATE OF SURGERY 12/30/2016 PREOPERATIVE DIAGNOSIS Decayed periodontally involved teeth number 14 and 31. POSTOPERATIVE DIAGNOSIS Decayed periodontally involved teeth number [address] Ye DEBUBBLIZER Rosa Isela. PROCEDURE Extraction of teeth numbers 14 and 31. ANESTHESIA General. Also 2% lidocaine with 1:100,000 epinephrine approximately 5 mL. Also 0.5% Marcaine with 1:200,000 epinephrine at the end of the case approximately 2 mL. COMPLICATIONS None. ESTIMATED BLOOD LOSS Minimal. DISPOSITION The patient tolerated the procedure well, extubated and taken to the PACU. INDICATIONS FOR PROCEDURE This is a 26-year-old male with a severe history of hemophilia that is being treated at the hospital for pain and other sepsis. Oral maxillofacial was consulted for extraction of his two broken teeth. They are decayed and non restorable, periodontally involved. Tooth numbers 14 and 31. Benefits, risks, indication for procedure, the procedure in detail and the options of no treatment including alternatives were discussed with this patient. Risks not limited to any postop pain, infection, bleeding, damage to the adjacent teeth, soft tissue, hard tissue anesthesia complications, sinus involvement, nerve involvement. All questions and concerns were addressed. Consent is signed in the chart. PROCEDURE DETAILS As follows, the patient was met perioperatively. All questions and concerns were addressed. Consent signed in the chart. The patient was taken to operating room number 7, intubated orally. Eyes were taped shut. Pressure points were padded. At this time a time-out was taken to identify the patient, the site, the procedure. Surgeon and all were in agreement. The patient was prepped with Betadine solution. I went to the sink to scrub. I came back wearing sterile attire. The patient draped in normal sterile fashion. Bite block was gently placed in the left side of the mouth. 2% lidocaine with 1:100,000 epinephrine was injected in the inferior alveolar nerve block on the right and a long buccal on the right also with local infiltration #31. Also again around tooth number 14. Buccal gingival incision was made around tooth #31. Flap was reflected. Elevator forceps was used to extract the tooth. Granulation tissue was removed. The site was irrigated with saline solution. Bovie was used to cauterize any bleeders. Avitene was placed into the site and closed with 3-0 chromic suture. Attention was diverted to tooth #14 site. The flap was created buccal gingival. Elevator forceps was used to gently remove the tooth. Bovie was used again to cauterize any loose bleeders. The site was curetted. Bone file was used both #14 and 31 site. Saline irrigation was done, Avitene was placed and closed with 3-0 chromic suture. The patient tolerated the procedure well. No complications noted. Note that prior to beginning of the procedure, the throat pack was placed in the mouth along with bite blocks. Peridex mouth irrigation was done. At the end of the procedure back of throat was suctioned. The throat pack was removed. Bite block was removed. Gauze that was not part of the count was now placed in the mouth. Both the extraction sites region. Good hemostasis noted. Note that the patient already has Factor VII that has been given to him prior to extraction to help with hemostasis. The patient tolerated the procedure well, extubated, taken to the PACU. All sponge and needle counts were all accounted for. Soila Ye DMD RRT/SHABBIR /5:18 PM /10:21 PM NISHA
[2016-12-31] VITALS (8 sets, daily range): BP systolic 115–137; BP diastolic 69–94; PULSE 62–93; RESP 16–18; TEMP 96.7–98.6; O2SAT 96–98
[2016-12-31] MEDS: AMINOCAPROIC ACID 500 MG TAB PO SCH ×5 (00:42→17:59)
[2016-12-31] MEDS ORDERED: HYDROmorphone HCL PF 1 MG/ML VIAL IV PUSH ONE (01:00)
[2016-12-31] MEDS: [UNRECOGNIZED DRUG - OTHER] IV SCH ×2 (01:44→14:38)
[2016-12-31] MEDS: PCA - TOTAL MG DILAUDID DELIVERED PER SHIFT SCH ×3 (05:47→21:51)
[2016-12-31] MEDS: ALPRAZolam 0.5 MG TAB PO SCH ×3 (05:47→21:49)
[2016-12-31] MEDS: SODIUM CHLOR 0.9% 1000 ML INJ 1,000 ML IV SCH ×2 (05:48→21:51)
[2016-12-31] MEDS: SILVER SULFADIAZINE 1% CR 50 GM JAR TOPICAL SCH ×2 (07:17→20:45)
--- NOTE | 2016-12-31 07:45 | HHI.PR ---
Subjective Remarks POD 1 s/p extraction of broken/decayed/periodontally involved teeth 14/31 pt seen and examined, AAOx3, NAD tolerating po no complaints Objective Vital Signs Date Time Temp Pulse Resp B/P Pulse Ox O2 Delivery O2 Flow Rate FiO2 12/31/16 05:47 12 12/31/16 04:00 97.3 93 18 126/77 96 12/31/16 00:45 97.7 65 16 129/87 98 12/30/16 23:08 12 12/30/16 22:00 16 12/30/16 20:00 98.4 92 20 165/88 97 12/30/16 17:45 97.5 72 15 106/55 95 Room Air 12/30/16 17:44 15 12/30/16 17:44 15 12/30/16 17:30 78 15 113/63 94 Room Air 12/30/16 17:15 97.9 79 14 113/59 97 Room Air 12/30/16 14:42 16 12/30/16 08:00 97.7 85 18 122/58 98 I/O 12/30/16 12/30/16 12/30/16 12/31/16 12/31/16 12/31/16 07:00 15:00 23:00 07:00 15:00 23:00 Intake Total 480 ml 2095 ml 830 ml 1728 ml Output Total 1700 ml 1010 ml 1000 ml Balance -1220 ml 2095 ml -180 ml 728 ml Intake Oral 480 ml 480 ml 720 ml IV Total 2095 ml 50 ml 1008 ml Other 300 ml Output Urine Total 1700 ml 1000 ml 1000 ml Estimated Blood Loss 10 ml Result Diagram: 12/28/16 0719 12/28/16 0719 Objective Remarks no facial edema intraorally, extraction sites hemostatic- no bleeding noted wound margins well approximated, sutures intact tissues pink/well perfused Assessment and Plan Assessment and Plan POD 1 s/p extraction of teeth 14/31 hemostatic, doing well plan for soft diet later today no drinking with straws, no spitting oms signing off Anurag Ye DMD Dec 31, 2016 07:45
[2016-12-31] MEDS ORDERED: LEVOFLOXACIN 500 MG PREMIX INJ 100 ML IV SCH (08:00)
--- NOTE | 2016-12-31 08:15 | PD.ONC.PN ---
Subjective Subjective Remarks Patient underwent tooth extraction yesterday, no overt bleeding noted. He does however report severe pain, he is currently in his room crying tell me the pain is very severe. He is on a more phone RESEARCH QUALITY ASSURANCE SPECIALIST pump and has also received bolus doses of hydromorphone last evening and overnight. He remains afebrile. Objective Data Date Time Temp Pulse Resp B/P Pulse Ox O2 Delivery O2 Flow Rate FiO2 12/31/16 05:47 12 12/31/16 04:00 97.3 93 18 126/77 96 12/31/16 00:45 97.7 65 16 129/87 98 12/30/16 23:08 12 12/30/16 22:00 16 12/30/16 20:00 98.4 92 20 165/88 97 12/30/16 17:45 97.5 72 15 106/55 95 Room Air 12/30/16 17:44 15 12/30/16 17:44 15 12/30/16 17:30 78 15 113/63 94 Room Air 12/30/16 17:15 97.9 79 14 113/59 97 Room Air 12/30/16 14:42 16 Result Diagram: 12/28/16 0719 12/28/16 0719 Laboratory Results Laboratory Tests Test 12/30/16 08:42 Activated Partial 68.8 SEC Thromboplast Time Administered Medications Medications (Trade) Dose Ordered Sig/Mike Route PRN Reason Start Time Stop Time Status Last Admin Dose Admin Sodium Chloride (NS Flush) 2 ml UNSCH PRN IVF FLUSH AFTER USING IV ACCESS 12/10/16 13:45 12/25/16 08:49 Morphine Sulfate (Oramorph Sr) 60 mg Q12HR PO 12/10/16 21:00 12/30/16 20:11 Aminocaproic Acid (Amicar) 2,000 mg Q6HR PO 12/10/16 18:45 12/31/16 05:47 Levofloxacin (Levaquin) 750 mg Q24H PO 12/11/16 18:00 02/02/17 23:00 12/29/16 17:26 RESEARCH QUALITY ASSURANCE SPECIALIST Dosage Infused (Pha) 1 Q8HR .XX 12/12/16 07:30 12/31/16 05:47 Miscellaneous Information 1 HS T-DERMAL 12/13/16 21:00 12/16/16 22:02 Nicotine (Nicotine Gum) 4 mg UNSCH PRN CHEW NICOTINE CRAVINGS 12/13/16 13:30 12/30/16 15:09 Silver Sulfadiazine (Silvadene 1% Cream (50 Gm)) 1 applic Q12HR TOPICAL 12/16/16 09:00 12/27/16 10:00 Dronabinol 2.5 mg 2.5 mg BID@11,16 PO 12/19/16 16:00 12/29/16 17:26 Sodium Chloride 1,000 ml @ 84 mls/hr [id number] IV 12/19/16 21:00 12/31/16 05:48 Micafungin Sodium/ Sodium Chloride (Mycamine Inj/NS Inj) 100 ml @ 100 mls/hr Q24H IV 12/24/16 20:00 01/04/17 23:00 12/30/16 20:08 Acetaminophen (Tylenol) 650 mg Q4H PRN PO FEVER, headache 12/27/16 04:15 12/28/16 22:29 Patient Own Medication PT OWN MED: FEIBA 7,500 UN... Q12H IV 12/27/16 20:00 12/28/16 08:42 Patient Own Medication PT OWN MED: PT OWN M... Q12H IV 12/28/16 02:00 12/31/16 01:44 Alprazolam (Xanax) 0.5 mg Q8H PO 12/27/16 23:00 12/31/16 05:47 Anti-Inhibitor Coagulant Complex (Feiba Nf Inj) 7,500 units Q12H IV 12/28/16 20:00 Hold 12/30/16 20:10 Factor VII (Pha) (Novoseven Rt Inj) 10 mg Q12H IV PUSH 12/29/16 02:00 Hold 12/30/16 15:09 Objective Remarks GENERAL PHYSICAL APPEARANCE: Mr. Gonzalez is a young man, he appears comfortable, sitting up in bed. HEENT: Head atraumatic, normocephalic. Conjunctive are pale. Sclerae are anicteric. Oral exam - no pharyngeal erythema. Oral examination: To the extractions performed yesterday, no bleeding in the oral cavity, some inflammation of the gingiva noted. NECK EXAM: Palpable cervical lymphadenopathy. Chest: Interval removal of infusion port along right side of the chest, surgical dressing is clean, no bruising no hematoma or overt bleeding appreciated. Musculo skeletal: Contractures of the joints of the upper extremities and knees , decreased range of motion. RESPIRATORY EXAM: Good air movement bilaterally, specifically over the bases as well. CARDIOVASCULAR: Tachycardiac, regular, S1-S2. No obvious murmurs, rubs or gallops. ABDOMINAL EXAM: Thin belly, soft and nontender, nondistended. No palpable organ enlargement. LIMOUSINE DRIVER: Generally weak but no localized motor or sensory deficits. Muscle skeletal: Swelling and tenderness noted in the right biceps, tenderness noted of the right shoulder. 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 Plan 1. Hemophilia a: Associated with high circulating inhibitor titer; hemostasis has been achieved effectively with the use of NovoSeven and fever even in the setting of 2 surgical procedures over the past week; infusion port removal and tooth removal. He is on once every 12 hours infusions which seem sufficient in controlling his bleeding. He is also on Amicar oral dosing every 6 hours. 2. Tooth extraction: Appreciate the assistance of our oral surgeons, the procedure was not complicated by bleeding and he is doing well from a clinical standpoint this time. 3. Bacteremia/fungemia: He is on broad-spectrum antibiotics and micafungin and remains afebrile. As per ID recommendations. 4. Vascular access: I will discuss timing of central line placement; preferably an infusion port with ID. 5. Pain control: Hydromorphone RESEARCH QUALITY ASSURANCE SPECIALIST pump and long-acting morphine, he seems to have a high grade of opioid tolerance and though he is on high doses of pain medications he seems not to be comfortable. Leno Adam MD Dec 31, 2016 08:15
[2016-12-31] MEDS: DRONABINOL 2.5 MG CAP PO SCH ×2 (10:27→16:30)
[2016-12-31] MEDS: MORPHINE SULFATE 60 MG CONTROLLED RELEASE TAB PO SCH ×2 (10:27→20:41)
[2016-12-31] MEDS: [UNRECOGNIZED DRUG - OTHER] IV SCH ×2 (10:28→20:40)
[2016-12-31] MEDS: NICOTINE 4 MG/GUM CHEW PRN ×4 (14:52→20:46)
[2016-12-31 15:09] LABS: AUTOMATED NEUTROPHIL # 7.5 TH/MM3 (1.8-7.7); BASOPHIL % 0.3 % (0.0-2.0); EOSINOPHIL # 0.3 TH/MM3 (0-0.4); EOSINOPHIL % 2.5 % (0.0-4.0); HEMATOCRIT 34.7 % (39.0-51.0); HEMO FLAGS DIFF FINAL; LYMPHOCYTE # 2.1 TH/MM3 (1.0-4.8); MEAN CELL VOLUME 78.8 FL (80.0-100.0); MEAN CORPUSCULAR HEMOGLOBIN 26.9 PG (27.0-34.0); MEAN CORPUSCULAR HGB CONC 34.1 % (32.0-36.0); MONO % 6.5 % (0.0-8.0); NEUT % 70.7 % (16.0-70.0); PLATELET COUNT 279 TH/MM3 (150-450); RED BLOOD COUNT 4.41 MIL/MM3 (4.50-5.90); RED CELL DISTRIBUTION WIDTH 17.7 % (11.6-17.2); WHITE BLOOD COUNT 10.7 TH/MM3 (4.0-11.0)
--- NOTE | 2016-12-31 15:37 | HHI.PR ---
Subjective Remarks acting childlike - but appears comfortable, states pain - post tooth extraction site requesting for more ensure- oain from the hoints- shoulder, knees better Objective Vitals Vital Signs Date Time Temp Pulse Resp B/P Pulse Ox O2 Delivery O2 Flow Rate FiO2 12/31/16 14:00 16 12/31/16 12:34 97 21 12/31/16 12:00 97.2 62 16 127/79 96 12/31/16 08:00 96.7 93 16 137/94 97 12/31/16 05:47 12 12/31/16 04:00 97.3 93 18 126/77 96 12/31/16 00:45 97.7 65 16 129/87 98 12/30/16 23:08 12 12/30/16 22:00 16 12/30/16 20:00 98.4 92 20 165/88 97 12/30/16 17:45 97.5 72 15 106/55 95 Room Air 12/30/16 17:44 15 12/30/16 17:44 15 12/30/16 17:30 78 15 113/63 94 Room Air 12/30/16 17:15 97.9 79 14 113/59 97 Room Air I/O 12/30/16 12/30/16 12/30/16 12/31/16 12/31/16 12/31/16 07:00 15:00 23:00 07:00 15:00 23:00 Intake Total 480 ml 2095 ml 830 ml 1728 ml Output Total 1700 ml 1010 ml 1000 ml Balance -1220 ml 2095 ml -180 ml 728 ml Intake Oral 480 ml 480 ml 720 ml IV Total 2095 ml 50 ml 1008 ml Other 300 ml Output Urine Total 1700 ml 1000 ml 1000 ml Estimated Blood Loss 10 ml Result Diagram: 12/31/16 1425 12/28/16 0719 Imaging Last Impressions Upper Extremity CT 12/26/16 0000 Signed Impressions: Service Date/Time: Monday, December 26, 2016 13:20 - CONCLUSION: Patchy right lung opacity. Right shoulder CT otherwise within normal limits. Salvador Najera MD Lower Extremity CT 12/26/16 0000 Signed Impressions: Service Date/Time: Monday, December 26, 2016 13:09 - CONCLUSION: 1. No fluid collections or hematomas identified. 2. Left hip within normal limits. 3. Severe osteoarthritic findings of the right hip. Salvador Najera MD Head CT 12/26/16 Signed Impressions: Service Date/Time: Tuesday, December 27, 2016 00:03 - CONCLUSION: Unremarkable study. Asia Carr MD Upper Extremity Ultrasound 12/15/16 0000 Signed Impressions: Service Date/Time: Thursday, December 15, 2016 19:08 - CONCLUSION: 1. Negative for deep venous thrombosis. Occlusive and nonocclusive thrombus in the right cephalic vein. Alejandro Neri MD Chest X-Ray 12/11/16 Signed Impressions: Service Date/Time: November 09:04 - CONCLUSION: A faint consolidation within the lingula likely atelectasis with a poor inspiratory effort. Right sided [id number] catheter in excellent position. Garrett Altman MD Abdomen/Pelvis CT 12/10/16 0000 Signed Impressions: Service Date/Time: Saturday, December 10, 2016 18:59 - CONCLUSION: 1. No evidence of acute abdominal or pelvic process. No masses are identified. Scot Flores MD Objective Remarks awake and alert, NAD anictric mild swelling upper mola area- post tooth extraction, no active bleeding lungs clear regula rhythm abdomen soft, nontender extremities no edema moves all spontaneously Procedures 12/30- dental extraction x 2 A/P Problem List: (1) Anemia ICD Code: D64.9 Status: Acute (2) Hemarthrosis ICD Code: M25.00 Status: Acute (3) 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 (4) Sepsis ICD Code: A41.9 Status: Acute (5) Poor appetite ICD Code: R63.0 Status: Acute (6) Hypotension ICD Code: I95.9 Status: Acute (7) Tooth infection ICD Code: K04.7 Status: Acute Problem Qualifiers (1) Anemia: Qualified Code: D64.9 - Anemia, unspecified type (2) Sepsis: Qualified Code: A41.9 - Sepsis, due to unspecified organism (3) Hypotension: Qualified Code: I95.9 - Hypotension, unspecified hypotension type Nicolás Green MD Dec 31, 2016 15:37
[2016-12-31 15:57] LABS: APTT (PATIENT) 72.5 SEC (24.3-30.1)
[2016-12-31] MEDS: SODIUM CHLORIDE 0.9% IV SCH (16:30)
[2016-12-31] MEDS: HYDROMORPHONE IV SCH (16:30)
[2016-12-31] MEDS: LEVOFLOXACIN 750 MG TAB PO SCH (17:58)
[2016-12-31] MEDS: MICAFUNGIN INJ 100 MG in SODIUM CHLORIDE 0.9% INJ 100 ML IV SCH (20:41)
[2016-12-31] MEDS: REMOVE OLD PATCH T-DERMAL SCH (20:45)
[2017-01-01] VITALS (7 sets, daily range): BP systolic 122–143; BP diastolic 66–83; PULSE 85–111; RESP 16–18; TEMP 98–99.3; O2SAT 97–99
[2017-01-01] MEDS: AMINOCAPROIC ACID 500 MG TAB PO SCH ×5 (00:15→20:10)
[2017-01-01] MEDS: [UNRECOGNIZED DRUG - OTHER] IV SCH ×2 (02:09→23:23)
[2017-01-01] MEDS: SODIUM CHLOR 0.9% 1000 ML INJ 1,000 ML IV SCH ×2 (05:32→20:11)
[2017-01-01] MEDS: ALPRAZolam 0.5 MG TAB PO SCH ×3 (05:32→23:23)
[2017-01-01] MEDS: PCA - TOTAL MG DILAUDID DELIVERED PER SHIFT SCH (05:35)
--- NOTE | 2017-01-01 08:26 | PD.ONC.PN ---
Subjective Subjective Remarks Patient reports continued pain in the jaw at the site of tooth extraction as well as in his hip and shoulder and elbows. He declined PICC line placement yesterday on the right side because of inability to lift the shoulder, he also wanted talk to me about having this placed before he allowed the PICC line team to place a line. He remains afebrile, last positive blood culture dates back to 12/20/2016. He needs to be on IV micafungin until 01/04/2017. Needs to be on oral levofloxacin until mid January 2017. Objective Data Date Time Temp Pulse Resp B/P Pulse Ox O2 Delivery O2 Flow Rate FiO2 01/01/17 05:35 17 01/01/17 05:00 99.1 95 18 131/71 97 01/01/17 00:45 99.3 85 18 135/78 99 12/31/16 21:51 19 12/31/16 20:00 98.6 88 16 115/69 97 12/31/16 17:53 97 21 12/31/16 16:30 16 12/31/16 16:00 97.1 90 16 120/82 97 12/31/16 14:00 16 12/31/16 12:34 97 21 12/31/16 12:00 97.2 62 16 127/79 96 Result Diagram: 12/31/16 1425 12/28/16 0719 Laboratory Results Laboratory Tests Test 12/31/16 14:25 White Blood Count 10.7 TH/MM3 Red Blood Count 4.41 MIL/MM3 Hemoglobin 11.8 GM/DL Hematocrit 34.7 % Mean Corpuscular Volume 78.8 FL Mean Corpuscular Hemoglobin 26.9 PG Mean Corpuscular Hemoglobin 34.1 % Concent Red Cell Distribution Width 17.7 % Platelet Count 279 TH/MM3 Mean Platelet Volume 7.6 FL Neutrophils (%) (Auto) 70.7 % Lymphocytes (%) (Auto) 20.0 % Monocytes (%) (Auto) 6.5 % Eosinophils (%) (Auto) 2.5 % Basophils (%) (Auto) 0.3 % Neutrophils # (Auto) 7.5 TH/MM3 Lymphocytes # (Auto) 2.1 TH/MM3 Monocytes # (Auto) 0.7 TH/MM3 Eosinophils # (Auto) 0.3 TH/MM3 Basophils # (Auto) 0.0 TH/MM3 CBC Comment DIFF FINAL Differential Comment Activated Partial 72.5 SEC Thromboplast Time Administered Medications Medications (Trade) Dose Ordered Sig/Mike Route PRN Reason Start Time Stop Time Status Last Admin Dose Admin Sodium Chloride (NS Flush) 2 ml UNSCH PRN IVF FLUSH AFTER USING IV ACCESS 12/10/16 13:45 12/25/16 08:49 Morphine Sulfate (Oramorph Sr) 60 mg Q12HR PO 12/10/16 21:00 12/31/16 20:41 Aminocaproic Acid (Amicar) 2,000 mg Q6HR PO 12/10/16 18:45 01/01/17 05:32 Levofloxacin (Levaquin) 750 mg Q24H PO 12/11/16 18:00 02/02/17 23:00 12/31/16 17:58 TAIL RIPPER Dosage Infused (Pha) 1 Q8HR .XX 12/12/16 07:30 01/01/17 05:35 Miscellaneous Information 1 HS T-DERMAL 12/13/16 21:00 12/16/16 22:02 Nicotine (Nicotine Gum) 4 mg UNSCH PRN CHEW NICOTINE CRAVINGS 12/13/16 13:30 12/31/16 20:46 Silver Sulfadiazine (Silvadene 1% Cream (50 Gm)) 1 applic Q12HR TOPICAL 12/16/16 09:00 12/27/16 10:00 Dronabinol 2.5 mg 2.5 mg BID@11,16 PO 12/19/16 16:00 12/31/16 16:30 Sodium Chloride 1,000 ml @ 84 mls/hr [id number] IV 12/19/16 21:00 01/01/17 05:32 Micafungin Sodium/ Sodium Chloride (Mycamine Inj/NS Inj) 100 ml @ 100 mls/hr Q24H IV 12/24/16 20:00 01/04/17 23:00 12/31/16 20:41 Acetaminophen (Tylenol) 650 mg Q4H PRN PO FEVER, headache 12/27/16 04:15 12/28/16 22:29 Patient Own Medication PT OWN MED: FEIBA 7,500 UN... Q12H IV 12/27/16 20:00 12/31/16 20:40 Alprazolam (Xanax) 0.5 mg Q8H PO 12/27/16 23:00 01/01/17 05:32 Anti-Inhibitor Coagulant Complex (Feiba Nf Inj) 7,500 units Q12H IV 12/28/16 20:00 Hold 12/30/16 20:10 Objective Remarks GENERAL PHYSICAL APPEARANCE: Mr. Gonzalez is a young man, he appears comfortable, sitting up in bed. HEENT: Head atraumatic, normocephalic. Conjunctive are pale. Sclerae are anicteric. Oral exam - no pharyngeal erythema. Oral examination: To the extractions performed yesterday, no bleeding in the oral cavity, some inflammation of the gingiva noted. NECK EXAM: Palpable cervical lymphadenopathy. Chest: Interval removal of infusion port along right side of the chest, surgical dressing is clean, no bruising no hematoma or overt bleeding appreciated. Musculo skeletal: Contractures of the joints of the upper extremities and knees , decreased range of motion. RESPIRATORY EXAM: Good air movement bilaterally, specifically over the bases as well. CARDIOVASCULAR: Tachycardiac, regular, S1-S2. No obvious murmurs, rubs or gallops. ABDOMINAL EXAM: Thin belly, soft and nontender, nondistended. No palpable organ enlargement. 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 Muscle skeletal: Swelling and tenderness noted in the right biceps, tenderness noted of the right shoulder. 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 Plan 1. Hemophilia a: Associated with high circulating inhibitor titer; hemostasis has been achieved effectively with the use of NovoSeven and fever even in the setting of 2 surgical procedures over the past week; infusion port removal and tooth removal. He is on once every 12 hours infusions which seem sufficient in controlling his bleeding. He is also on Amicar oral dosing every 6 hours. 2. Tooth extraction: Appreciate the assistance of our oral surgeons, the procedure was not complicated by bleeding and he is doing well from a clinical standpoint this time. 3. Bacteremia/fungemia: He is on broad-spectrum antibiotics and micafungin and remains afebrile. As per ID recommendations. Continue levofloxacin orally , micafungin to continue for an additional 3 days. 4. Vascular access: Too early for infusion port placement given the recent bacteremia. Temporary PICC line; single-lumen will be sufficient in meeting his factor replacement and IV micafungin requirements. 5. Pain control: Hydromorphone TAIL RIPPER pump and long-acting morphine, he seems to have a high grade of opioid tolerance and though he is on high doses of pain medications he seems not to be comfortable. Dilated TAIL RIPPER will be discontinued upon discharge. Disposition: Consult case management for micafungin outpatient administration and PICC line care, he will need home health nursing. Discharge home after PICC line is placed with outpatient follow-up. Leno Adam MD Jan 01, 2017 08:26
[2017-01-01] MEDS: MORPHINE SULFATE 60 MG CONTROLLED RELEASE TAB PO SCH ×2 (08:29→20:11)
[2017-01-01] MEDS: SILVER SULFADIAZINE 1% CR 50 GM JAR TOPICAL SCH ×2 (08:30→20:11)
[2017-01-01] MEDS ORDERED: HYDROmorphone HCL PF 2 MG/ML VIAL IV PUSH SCH (08:30)
[2017-01-01] MEDS: SODIUM CHLORIDE 0.9% IV SCH (11:35)
[2017-01-01] MEDS: HYDROMORPHONE IV SCH (11:35)
--- NOTE | 2017-01-01 12:55 | HHI.IDPN ---
Subjective Subjective Remarks Notes reviewed Afebrile S/P removal of port 12/23 - C/S from pocket with Serratia, Sten mal and Achromobacter - C/S tip - Sten mal and Achromobacter S/P tooth extraction 12/30 PICC placed today Last (+) BC 12/20 Antibiotics Levaquin Micafungin Lines Port - removed 12/23 PICC 01/01 Past Medical History Reviewed Allergies: Coded Allergies: Nonsteroidal Anti-Inflammatory Agts (Verified Adverse Reaction, Severe, bleeding, 11/18/16) Objective . Vital Signs Date Time Temp Pulse Resp B/P Pulse Ox O2 Delivery O2 Flow Rate FiO2 01/01/17 11:35 18 01/01/17 08:00 98.1 104 16 131/75 98 01/01/17 05:35 17 01/01/17 05:00 99.1 95 18 131/71 97 01/01/17 00:45 99.3 85 18 135/78 99 12/31/16 21:51 19 12/31/16 20:00 98.6 88 16 115/69 97 12/31/16 17:53 97 21 12/31/16 16:30 16 12/31/16 16:00 97.1 90 16 120/82 97 12/31/16 14:00 16 12/31/16 12/31/16 01/01/17 15:00 23:00 07:00 Intake Total 720 ml 672 ml 1392 ml Output Total 900 ml 1000 ml 900 ml Balance -180 ml -328 ml 492 ml Intake Oral 720 ml 720 ml IV Total 672 ml 672 ml Output Urine Total 900 ml 1000 ml 900 ml . Laboratory Tests Test 12/31/16 14:25 White Blood Count 10.7 TH/MM3 Red Blood Count 4.41 MIL/MM3 Hemoglobin 11.8 GM/DL Hematocrit 34.7 % Mean Corpuscular Volume 78.8 FL Mean Corpuscular Hemoglobin 26.9 PG Mean Corpuscular Hemoglobin 34.1 % Concent Red Cell Distribution Width 17.7 % Platelet Count 279 TH/MM3 Mean Platelet Volume 7.6 FL Neutrophils (%) (Auto) 70.7 % Lymphocytes (%) (Auto) 20.0 % Monocytes (%) (Auto) 6.5 % Eosinophils (%) (Auto) 2.5 % Basophils (%) (Auto) 0.3 % Neutrophils # (Auto) 7.5 TH/MM3 Lymphocytes # (Auto) 2.1 TH/MM3 Monocytes # (Auto) 0.7 TH/MM3 Eosinophils # (Auto) 0.3 TH/MM3 Basophils # (Auto) 0.0 TH/MM3 CBC Comment DIFF FINAL Differential Comment Imaging Last Impressions Chest X-Ray 12/11/16 0000 Signed Impressions: Service Date/Time: November 09:04 - CONCLUSION: A faint consolidation within the lingula likely atelectasis with a poor inspiratory effort. Right sided [id number] catheter in excellent position. Garrett Altman MD Upper Extremity CT 12/10/16 0000 Signed Impressions: Service Date/Time: Saturday, December 10, 2016 19:14 - CONCLUSION: 1. Joint effusion. There is no evidence of acute fracture. Scot Flores MD Lower Extremity CT 12/10/16 0000 Signed Impressions: Service Date/Time: Saturday, December 10, 2016 19:04 - CONCLUSION: 1. 7.2 x 4.2 symmetr hematoma in left leads mediastinal Scot Flores MD Abdomen/Pelvis CT 12/10/16 0000 Signed Impressions: Service Date/Time: Saturday, December 10, 2016 18:59 - CONCLUSION: 1. No evidence of acute abdominal or pelvic process. No masses are identified. Scot Flores MD Physical Exam GENERAL: awakens easily, NAD SKIN: Warm and dry. Dry dressing on his R chest HEENT: [place] conjunctiva. No petechia or hemorrhage. No scleral icterus. No injection or drainage. No oral lesions noted. NECK: Trachea midline. Supple and not tender, no meningeal signs CARDIOVASCULAR: Regular rate and rhythm. No murmurs, rubs or gallops heard RESPIRATORY: Clear to auscultation. Breath sounds equal bilaterally. No rales , wheezing or rhonchi ABDOMEN: Soft, non-tender, nondistended. Bowel sounds present and normoactive. No guarding. No rebound. No organomegaly. EXTREMITIES: No clubbing, cyanosis, or edema. L elbow looks less effusion, has very limited ROM due to the pain. His L knee same NEUROLOGICAL: Non-focal LINE: dry dressing over his R chest Assessment & Plan Remarks IMPRESSION Sepsis on presentation and has different organisms from his port - has port infection, S/P removal Hemophilia with recurrent spontaneous hemarthrosis, and other bleeding - joint pains seem better Chronic pain, and chronic narcotic use Fevers, temps better RECOMMENDATION Will switch to Voriconazole orally and finish Rx for C glabrata sepsis Continue Levaquin for prolonged multiple GNR sepsis - give until February 02 End dates ordered in [facility] Monitor progress He is clinically dtable from ID standpoint I will sign off Please call if with any new ID issue or question Relayed recommendation to Kamini Viveros MD Jan 01, 2017 12:55
[2017-01-01] MEDS ORDERED: VORICONAZOLE 200 MG TAB PO SCH (13:00)
[2017-01-01] MEDS ORDERED: SODIUM CHLORIDE 0.9% FLUSH 10 ML FLUSH IV FLUSH PRN (13:15)
--- NOTE | 2017-01-01 13:24 | RADRPT ---
EXAM DATE/TIME: 01/01/2017 12:09 [facility] COMPARISON: CHEST SINGLE AP, December 11, 2016, 9:04. INDICATIONS : Post picc placement MEDICAL HISTORY : Venous insufficiency. Hemophilia. SURGICAL HISTORY : None. ENCOUNTER: Initial ACUITY: 1 week PAIN SCORE: 0/10 LOCATION: Bilateral chest FINDINGS: A single portable frontal view the chest shows low lung volumes. Bibasilar parenchymal consolidations noted. A right-sided PICC line has been placed. The tip is low within the right atrium. The heart is normal in size. No effusions. CONCLUSION: Tip of the PICC line low within the right atrium. Suggest retracting the tip approximately 4 cm. Biba silar atelectasis versus infiltrates. Charli Wood Jr., MD on January 01, 2017 at 13:21 Board Certified Radiologist. This report was verified electronically.
[2017-01-01] MEDS: DRONABINOL 2.5 MG CAP PO SCH ×2 (13:34→18:43)
[2017-01-01] MEDS ORDERED: FACTOR VIIA (RECOMB) 5 MG VIAL IV PUSH SCH ×2 (14:00→23:00)
[2017-01-01] MEDS ORDERED: [UNRECOGNIZED DRUG - OTHER] IV SCH (14:00)
[2017-01-01] MEDS: [UNRECOGNIZED DRUG - OTHER] IV SCH (15:27)
--- NOTE | 2017-01-01 15:47 | RADRPT ---
EXAM DATE/TIME: 01/01/2017 14:54 [facility] COMPARISON: CHEST SINGLE AP, January 01, 2017, 12:09. INDICATIONS : Evaluate PICC line placement. MEDICAL HISTORY : Venous insufficiency. Hemophilia. SURGICAL HISTORY : None. ENCOUNTER: Subsequent ACUITY: 1 day PAIN SCORE: 0/10 LOCATION: Bilateral chest FINDINGS: Right-sided PICC line with tip in the mid SVC approximately 3-4 cm above the atriocaval junction. Roselyn ear opacities in the left lower lung zone consistent with atelectasis/scarring. Cardiomediastinal con tours are within normal limits given portable technique. Bony thorax is intact. CONCLUSION: 1. Right PICC line tip in the mid SVC, approximately 3-4 cm above the atriocaval junction. Nick Garcia MD on January 01, 2017 at 15:44 Board Certified Radiologist. This report was verified electronically.
[2017-01-01] MEDS: HYDROmorphone HCL PF 2 MG/ML VIAL IV PUSH PRN (16:41)
[2017-01-01] MEDS: LEVOFLOXACIN 750 MG TAB PO SCH (16:41)
--- NOTE | 2017-01-01 17:01 | HHI.PR ---
Subjective Remarks c/o pain in joints and right lower mandible denies fevers and chills Picc line just adjusted. Objective Vitals Vital Signs Date Time Temp Pulse Resp B/P Pulse Ox O2 Delivery O2 Flow Rate FiO2 01/01/17 13:36 16 01/01/17 13:36 16 01/01/17 12:00 99.3 111 16 143/83 97 01/01/17 11:35 18 01/01/17 10:11 97 21 01/01/17 08:00 98.1 104 16 131/75 98 01/01/17 05:35 17 01/01/17 05:00 99.1 95 18 131/71 97 01/01/17 00:45 99.3 85 18 135/78 99 12/31/16 21:51 19 12/31/16 20:00 98.6 88 16 115/69 97 12/31/16 17:53 97 21 I/O 12/31/16 12/31/16 12/31/16 01/01/17 01/01/17 01/01/17 06:59 14:59 22:59 06:59 14:59 22:59 Intake Total 1728 ml 720 ml 672 ml 1392 ml 1408 ml Output Total 1000 ml 900 ml 1000 ml 900 ml 900 ml Balance 728 ml -180 ml -328 ml 492 ml -900 ml 1408 ml Intake Oral 720 ml 720 ml 720 ml IV Total 1008 ml 672 ml 672 ml 1408 ml Output Urine Total 1000 ml 900 ml 1000 ml 900 ml 900 ml Result Diagram: 12/31/16 1425 12/28/16 0719 Imaging Last Impressions Chest X-Ray 01/01/17 0000 Signed Impressions: Service Date/Time: December 14:54 - CONCLUSION: 1. Right PICC line tip in the mid SVC, approximately 3-4 cm above the atriocaval junction. Nick Garcia MD Upper Extremity CT 12/26/16 0000 Signed Impressions: Service Date/Time: Monday, December 26, 2016 13:20 - CONCLUSION: Patchy right lung opacity. Right shoulder CT otherwise within normal limits. Salvador Najera MD Lower Extremity CT 12/26/16 0000 Signed Impressions: Service Date/Time: Monday, December 26, 2016 13:09 - CONCLUSION: 1. No fluid collections or hematomas identified. 2. Left hip within normal limits. 3. Severe osteoarthritic findings of the right hip. Salvador Najera MD Head CT 12/26/16 0000 Signed Impressions: Service Date/Time: Tuesday, December 27, 2016 00:03 - CONCLUSION: Unremarkable study. Asia Carr MD Upper Extremity Ultrasound 12/15/16 0000 Signed Impressions: Service Date/Time: Thursday, December 15, 2016 19:08 - CONCLUSION: 1. Negative for deep venous thrombosis. Occlusive and nonocclusive thrombus in the right cephalic vein. Alejandro Neri MD Abdomen/Pelvis CT 12/10/16 0000 Signed Impressions: Service Date/Time: Saturday, December 10, 2016 18:59 - CONCLUSION: 1. No evidence of acute abdominal or pelvic process. No masses are identified. Scot Flores MD Objective Remarks GENERAL: AAOx3, NAD SKIN: Warm and dry. Has ecchymoses in his lateral left thigh. Wound close to port, scab came off, wound with some ointment, clean base, no surrounding cellulitis HEAD: Atraumatic. Normocephalic. No temporal wasting, or tenderness. EYES: [place] conjunctiva. No petechia or hemorrhage. No scleral icterus. No injection or drainage. EARS, NOSE AND THROAT: Nose without bleeding or purulent nasal discharge. No sinus tenderness. No oral lesions noted. No exudate. No oral thrush. There is a left maxillary molar which is essentially decayed down to the gums, there is some erythema appreciated along the gum indicating infection. NECK: Trachea midline. Supple and not tender, no meningeal signs CARDIOVASCULAR: Regular rate and rhythm. No murmurs, rubs or gallops heard RESPIRATORY: Clear to auscultation. Breath sounds equal bilaterally. No rales , wheezing or rhonchi ABDOMEN: Soft, non-tender, nondistended. Bowel sounds present and normoactive. No guarding. No rebound. No organomegaly. EXTREMITIES: No clubbing, cyanosis, or edema. Limited ROM due to the pain. His L knee hapain with any ROM. No calf tenderness. Well perfused and warm. BACK: Pain on palpation of his L hip NEUROLOGICAL: Sleepy PSYCHIATRIC: Normal affect, calm and cooperative. LINE: No evidence of infection on the port which is on his L upper chest Procedures 12/30- dental extraction x 2 Medications and IVs Current Medications Medications (Trade) Dose Ordered Sig/Mike Route Start Time Stop Time Status Last Admin (NS Flush) 2 ml UNSCH PRN IVF 12/10/16 13:45 12/25/16 08:49 (Oramorph Sr) 60 mg Q12HR PO 12/10/16 21:00 01/01/17 08:29 (Levaquin) 750 mg Q24H PO 12/11/16 18:00 02/02/17 23:00 01/01/17 16:41 Miscellaneous Information 1 HS T-DERMAL 12/13/16 21:00 12/16/16 22:02 (Nicotine Gum) 4 mg UNSCH PRN CHEW 12/13/16 13:30 12/31/16 20:46 (Silvadene 1% Cream (50 Gm)) 1 applic Q12HR TOPICAL 12/16/16 09:00 12/27/16 10:00 Dronabinol 2.5 mg 2.5 mg BID@11,16 PO 12/19/16 16:00 01/01/17 13:34 (NS 1000 ml Inj) 1,000 ml @ 84 mls/hr [id number] IV 12/19/16 21:00 01/01/17 05:32 (Tylenol) 650 mg Q4H PRN PO 12/27/16 04:15 12/28/16 22:29 (Xanax) 0.5 mg Q8H PO 12/27/16 23:00 01/01/17 13:34 (Vfend) 400 mg Q12HR PO 01/01/17 13:00 01/01/17 21:01 (Vfend) 200 mg Q12HR PO 01/02/17 12:00 01/04/17 23:00 (NS Flush) See Protocol DAILY IV FLUSH 01/02/17 09:00 (NS Flush) See Protocol UNSCH PRN IV FLUSH 01/01/17 13:15 (Heparin Central Flush) See Protocol DAILY IV FLUSH 01/02/17 09:00 (Heparin Central Flush) See Protocol UNSCH PRN IV FLUSH 01/01/17 13:15 (NS Flush) UNSCH PRN IV FLUSH 01/01/17 13:15 (Amicar) 2,000 mg Q12HR PO 01/01/17 16:00 (Feiba Nf Inj) 7,500 units Q24H IV 01/01/17 14:00 Hold (Novoseven Rt Inj) 10 mg Q24H IV PUSH 01/01/17 23:00 Future Hold (Roxicodone) 30 mg Q4H PRN PO 01/01/17 14:00 01/01/17 15:23 (Dilaudid Pf Inj) 2 mg Q8HR PRN IV PUSH 01/01/17 14:00 01/01/17 16:41 Patient Own Medication PT OWN MED: FEIBA 7,500 UN... Q24H IV 01/01/17 14:00 01/01/17 15:27 Patient Own Medication PT OWN MED: PT OWN M... 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 Presents with hematoma in the left gluteal muscle group, hemarthrosis in the left knee and pain in the left elbow. Patient status post transfusion of 2 units of packed red blood cells, H/H trending up - hemoglobin today up to 11 (2) Hemarthrosis ICD Code: M25.00 Status: Acute Plan: With joint swelling. His pain involving the left elbow, left knee, left hip. Continue pain control with [employer] Dilaudid pump. Left hip posterior thigh hematoma with overlying ecchymosis with limitation in range of motion - stable There are no signs of compartment syndrome. Peripheral pulses are strong and equal. On Amicar, Novosen as per hematology. 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 Hematology following. (4) Sepsis ICD Code: A41.9 Status: Acute Plan: Present on admission. Infectious disease consulted on following. Id consulted - antibiotics as per ID - Will switch to Voriconazole orally and finish Rx for C glabrata sepsis Continue Levaquin for prolonged multiple GNR sepsis - give until February 02 ID signed off (5) Poor appetite ICD Code: R63.0 Status: Acute Plan: Continue Marinol. Seems to have improved (6) Hypotension ICD Code: I95.9 Status: Resolved Plan: sp bolus of normal saline on 12/19 Now resolved. Likely 2/2 sepsis. (7) Tooth infection ICD Code: K04.7 Status: Acute Plan: OMF consulted. The procedure was not complicated by bleeding and he is doing well from a clinical standpoint this time. Assessment and Plan GI prophylaxis: Place on PPI. DVT prophylaxis: SCDs, prophylaxis given hemarthrosis. Discharge Planning Continue to monitor in the medical floor. Problem Qualifiers (1) Anemia: Qualified Code: D64.9 - Anemia, unspecified type (2) Sepsis: Qualified Code: A41.9 - Sepsis, due to unspecified organism (3) Hypotension: Qualified Code: I95.9 - Hypotension, unspecified hypotension type Ritesh Mclaughlin MD Jan 01, 2017 17:01
[2017-01-01] MEDS: REMOVE OLD PATCH T-DERMAL SCH (20:11)
[2017-01-02] VITALS (7 sets, daily range): BP systolic 107–142; BP diastolic 67–84; PULSE 88–107; RESP 16–18; TEMP 97.1–98.1; O2SAT 93–99
[2017-01-02] MEDS: HYDROmorphone HCL PF 2 MG/ML VIAL IV PUSH PRN ×3 (00:47→18:07)
[2017-01-02] MEDS: ALPRAZolam 0.5 MG TAB PO SCH ×3 (06:02→22:33)
--- NOTE | 2017-01-02 07:41 | PD.ONC.PN ---
Subjective Subjective Remarks Patient reports feeling better this morning, site of tooth extraction is less swollen, he denies bleeding, denies fevers. Joint pain including left knee, left hip left elbow continues. PICC line placed yesterday without complications of bleeding. Objective Data Date Time Temp Pulse Resp B/P Pulse Ox O2 Delivery O2 Flow Rate FiO2 01/02/17 04:00 98.1 107 18 121/67 95 01/02/17 00:00 98.1 102 17 107/67 98 01/01/17 20:00 98.0 98 16 122/69 97 01/01/17 18:45 16 01/01/17 18:45 17 01/01/17 16:00 98.3 104 16 122/66 97 01/01/17 13:36 16 01/01/17 13:36 16 01/01/17 12:00 99.3 111 16 143/83 97 01/01/17 11:35 18 01/01/17 10:11 97 21 01/01/17 08:00 98.1 104 16 131/75 98 01/02/17 01/02/17 01/02/17 07:00 15:00 23:00 Intake Total 870 ml Output Total 900 ml Balance -30 ml Result Diagram: 12/31/16 1425 Administered Medications Medications (Trade) Dose Ordered Sig/Mike Route PRN Reason Start Time Stop Time Status Last Admin Dose Admin Sodium Chloride (NS Flush) 2 ml UNSCH PRN IVF FLUSH AFTER USING IV ACCESS 12/10/16 13:45 12/25/16 08:49 Morphine Sulfate (Oramorph Sr) 60 mg Q12HR PO 12/10/16 21:00 01/01/17 20:11 Levofloxacin (Levaquin) 750 mg Q24H PO 12/11/16 18:00 02/02/17 23:00 01/01/17 16:41 Miscellaneous Information 1 HS T-DERMAL 12/13/16 21:00 12/16/16 22:02 Nicotine (Nicotine Gum) 4 mg UNSCH PRN CHEW NICOTINE CRAVINGS 12/13/16 13:30 12/31/16 20:46 Silver Sulfadiazine (Silvadene 1% Cream (50 Gm)) 1 applic Q12HR TOPICAL 12/16/16 09:00 12/27/16 10:00 Dronabinol 2.5 mg 2.5 mg BID@11,16 PO 12/19/16 16:00 01/01/17 18:43 Sodium Chloride (NS 1000 ml Inj) 1,000 ml @ 84 mls/hr [id number] IV 12/19/16 21:00 01/01/17 20:11 Acetaminophen (Tylenol) 650 mg Q4H PRN PO FEVER, headache 12/27/16 04:15 12/28/16 22:29 Alprazolam (Xanax) 0.5 mg Q8H PO 12/27/16 23:00 01/02/17 06:02 Aminocaproic Acid (Amicar) 2,000 mg Q12HR PO 01/01/17 16:00 01/01/17 20:10 Oxycodone HCl (Roxicodone) 30 mg Q4H PRN PO BREAKTHROUGH PAIN 01/01/17 14:00 01/02/17 06:03 Hydromorphone HCl (Dilaudid Pf Inj) 2 mg Q8HR PRN IV PUSH BREAKTHROUGH PAIN 01/01/17 14:00 01/02/17 00:47 Patient Own Medication PT OWN MED: FEIBA 7,500 UN... Q24H IV 01/01/17 14:00 01/01/17 15:27 Patient Own Medication PT OWN MED: PT OWN M... Q24H IV 01/01/17 23:00 01/01/17 23:23 Objective Remarks GENERAL PHYSICAL APPEARANCE: Mr. Gonzalez is a young man, he appears comfortable, sitting up in bed. HEENT: Head atraumatic, normocephalic. Conjunctive are pale. Sclerae are anicteric. Oral exam - no pharyngeal erythema. Oral examination: To the extractions performed yesterday, no bleeding in the oral cavity, stitching and packing involving the sockets of the teeth removed appears to be dry and without blood. NECK EXAM: Palpable cervical lymphadenopathy. Chest: Interval removal of infusion port along right side of the chest, surgical dressing is clean, no bruising no hematoma or overt bleeding appreciated. Musculo skeletal: Contractures of the joints of the upper extremities and knees , decreased range of motion. Interval placement of right upper extremity PICC line. RESPIRATORY EXAM: Good air movement bilaterally, specifically over the bases as well. CARDIOVASCULAR: Tachycardiac, regular, S1-S2. No obvious murmurs, rubs or gallops. ABDOMINAL EXAM: Thin belly, soft and nontender, nondistended. No palpable organ enlargement. MANDREL PRESS HAND: Generally weak but no localized motor or sensory deficits. Muscle skeletal: Swelling and tenderness noted in the right biceps, tenderness noted of the right shoulder. Assessment/Plan Assessment 26-year-old male with diagnosis of hemophilia A with a high circulating factor VIII inhibitor titer (12.5 [place] units, >5 [place] units is considered high) Presents with hematoma in the left gluteal muscle group, hemarthrosis in the left knee and pain in the left elbow. Plan 1. Hemophilia A: Associated with high circulating inhibitor titer; hemostasis has been achieved effectively with the use of NovoSeven and fever even in the setting of 2 surgical procedures over the past week; infusion port removal and tooth removal. He is presently on NovoSeven every 24 hours and FEIBA every 24 hours, the factors are given in an alternating manner every 12 hours. 2. Tooth extraction: Appreciate the assistance of our oral surgeons, the procedure was not complicated by bleeding and he is doing well from a clinical standpoint this time. 3. Bacteremia/fungemia: Transitioned for micafungin to voriconazole, on levofloxacin by mouth. 4. Vascular access: Too early for infusion port placement given the recent bacteremia. Temporary PICC line; single-lumen will be sufficient in meeting his factor replacement and IV micafungin requirements. 5. Pain control: LOG CUT OFF SAWYER pump discontinued, now on oral oxycodone, long-acting morphine sulfate and hydromorphone for breakthrough pain IV. Disposition: Continue supportive care. Encouraged out of bed. He may go off the floor with supervision to get some fresh air and sunlight. May be discharged home from a hematology standpoint, he however requests that he remained in the hospital at least for one more day to see how he does with ambulation because he is been in bed for over 2 weeks. Leno Adam MD Jan 02, 2017 07:41
[2017-01-02] MEDS: SILVER SULFADIAZINE 1% CR 50 GM JAR TOPICAL SCH ×2 (07:52→20:25)
[2017-01-02] MEDS: SODIUM CHLOR 0.9% 1000 ML INJ 1,000 ML IV SCH (08:00)
[2017-01-02] MEDS: SODIUM CHLORIDE 0.9% FLUSH 10 ML FLUSH IV FLUSH SCH (09:00)
[2017-01-02] MEDS: MORPHINE SULFATE 60 MG CONTROLLED RELEASE TAB PO SCH ×2 (09:10→20:23)
[2017-01-02] MEDS: AMINOCAPROIC ACID 500 MG TAB PO SCH ×2 (09:12→20:23)
--- NOTE | 2017-01-02 10:32 | HHI.PR ---
Subjective Remarks patient still c/o pain in left shoulder and left knee denies cp/sob Objective Vitals Vital Signs Date Time Temp Pulse Resp B/P Pulse Ox O2 Delivery O2 Flow Rate FiO2 01/02/17 08:43 97.5 102 16 118/84 99 01/02/17 04:00 98.1 107 18 121/67 95 01/02/17 00:00 98.1 102 17 107/67 98 01/01/17 20:00 98.0 98 16 122/69 97 01/01/17 18:45 16 01/01/17 18:45 17 01/01/17 16:00 98.3 104 16 122/66 97 01/01/17 13:36 16 01/01/17 13:36 16 01/01/17 12:00 99.3 111 16 143/83 97 01/01/17 11:35 18 I/O 01/01/17 01/01/17 01/01/17 01/02/17 01/02/17 01/02/17 07:00 15:00 23:00 07:00 15:00 23:00 Intake Total 1392 ml 840 ml 3080 ml 870 ml Output Total 900 ml 2900 ml 1500 ml 900 ml Balance 492 ml -2060 ml 1580 ml -30 ml Intake Oral 720 ml 840 ml 1000 ml 200 ml IV Total 672 ml 2080 ml 670 ml Output Urine Total 900 ml 2900 ml 1500 ml 900 ml # Voids 2 Result Diagram: 12/31/16 1425 Imaging Last Impressions Chest X-Ray 01/01/17 0000 Signed Impressions: Service Date/Time: December 14:54 - CONCLUSION: 1. Right PICC line tip in the mid SVC, approximately 3-4 cm above the atriocaval junction. Nick Garcia MD Upper Extremity CT 12/26/16 0000 Signed Impressions: Service Date/Time: Monday, December 26, 2016 13:20 - CONCLUSION: Patchy right lung opacity. Right shoulder CT otherwise within normal limits. Salvador Najera MD Lower Extremity CT 12/26/16 0000 Signed Impressions: Service Date/Time: Monday, December 26, 2016 13:09 - CONCLUSION: 1. No fluid collections or hematomas identified. 2. Left hip within normal limits. 3. Severe osteoarthritic findings of the right hip. Salvador Najera MD Head CT 12/26/16 0000 Signed Impressions: Service Date/Time: Tuesday, December 27, 2016 00:03 - CONCLUSION: Unremarkable study. Asia Carr MD Upper Extremity Ultrasound 12/15/16 0000 Signed Impressions: Service Date/Time: Thursday, December 15, 2016 19:08 - CONCLUSION: 1. Negative for deep venous thrombosis. Occlusive and nonocclusive thrombus in the right cephalic vein. Alejandro Neri MD Abdomen/Pelvis CT 12/10/16 0000 Signed Impressions: Service Date/Time: Saturday, December 10, 2016 18:59 - CONCLUSION: 1. No evidence of acute abdominal or pelvic process. No masses are identified. Scot Flores MD Objective Remarks GENERAL: AAOx3, NAD SKIN: Warm and dry. Has ecchymoses in his lateral left thigh. Wound close to port, scab came off, wound with some ointment, clean base, no surrounding cellulitis HEAD: Atraumatic. Normocephalic. No temporal wasting, or tenderness. EYES: [place] conjunctiva. No petechia or hemorrhage. No scleral icterus. No injection or drainage. EARS, NOSE AND THROAT: Nose without bleeding or purulent nasal discharge. No sinus tenderness. No oral lesions noted. No exudate. No oral thrush. NECK: Trachea midline. Supple and not tender, no meningeal signs CARDIOVASCULAR: Regular rate and rhythm. No murmurs, rubs or gallops heard RESPIRATORY: Clear to auscultation. Breath sounds equal bilaterally. No rales , wheezing or rhonchi ABDOMEN: Soft, non-tender, nondistended. Bowel sounds present and normoactive. No guarding. No rebound. No organomegaly. EXTREMITIES: No clubbing, cyanosis, or edema. Limited ROM due to the pain. His L knee hapain with any ROM. No calf tenderness. Well perfused and warm. BACK: Pain on palpation of his L hip NEUROLOGICAL: Sleepy PSYCHIATRIC: Normal affect, calm and cooperative. LINE: No evidence of infection on the port which is on his L upper chest Procedures 12/30- dental extraction x 2 Medications and IVs Current Medications Medications (Trade) Dose Ordered Sig/Mike Route Start Time Stop Time Status Last Admin (NS Flush) 2 ml UNSCH PRN IVF 12/10/16 13:45 12/25/16 08:49 (Oramorph Sr) 60 mg Q12HR PO 12/10/16 21:00 01/02/17 09:10 (Levaquin) 750 mg Q24H PO 12/11/16 18:00 02/02/17 23:00 01/01/17 16:41 Miscellaneous Information 1 HS T-DERMAL 12/13/16 21:00 12/16/16 22:02 (Nicotine Gum) 4 mg UNSCH PRN CHEW 12/13/16 13:30 12/31/16 20:46 (Silvadene 1% Cream (50 Gm)) 1 applic Q12HR TOPICAL 12/16/16 09:00 12/27/16 10:00 Dronabinol 2.5 mg 2.5 mg BID@11,16 PO 12/19/16 16:00 01/01/17 18:43 (NS 1000 ml Inj) 1,000 ml @ 84 mls/hr [id number] IV 12/19/16 21:00 01/01/17 20:11 (Tylenol) 650 mg Q4H PRN PO 12/27/16 04:15 12/28/16 22:29 (Xanax) 0.5 mg Q8H PO 12/27/16 23:00 01/02/17 06:02 (Vfend) 200 mg Q12HR PO 01/02/17 12:00 01/04/17 23:00 (NS Flush) See Protocol DAILY IV FLUSH 01/02/17 09:00 (NS Flush) See Protocol UNSCH PRN IV FLUSH 01/01/17 13:15 (Heparin Central Flush) See Protocol DAILY IV FLUSH 01/02/17 09:00 (Heparin Central Flush) See Protocol UNSCH PRN IV FLUSH 01/01/17 13:15 (NS Flush) UNSCH PRN IV FLUSH 01/01/17 13:15 (Amicar) 2,000 mg Q12HR PO 01/01/17 16:00 01/02/17 09:12 (Feiba Nf Inj) 7,500 units Q24H IV 01/01/17 14:00 Hold (Novoseven Rt Inj) 10 mg Q24H IV PUSH 01/01/17 23:00 Hold (Roxicodone) 30 mg Q4H PRN PO 01/01/17 14:00 01/02/17 10:43 (Dilaudid Pf Inj) 2 mg Q8HR PRN IV PUSH 01/01/17 14:00 01/02/17 09:24 Patient Own Medication PT OWN MED: FEIBA 7,500 UN... Q24H IV 01/01/17 14:00 01/01/17 15:27 Patient Own Medication PT OWN MED: PT OWN M... 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 Presents with hematoma in the left gluteal muscle group, hemarthrosis in the left knee and pain in the left elbow. Patient status post transfusion of 2 units of packed red blood cells, H/H stable. Continue to monitor. (2) Hemarthrosis ICD Code: M25.00 Status: Resolved Plan: With joint swelling. His pain involving the left elbow, left knee, left hip. Continue pain control with [employer] Dilaudid pump. Left hip posterior thigh hematoma with overlying ecchymosis with limitation in range of motion - stable There are no signs of compartment syndrome. Peripheral pulses are strong and equal. On Amicar, Novosen as per hematology. 01/02 patient has been cleared to be discharged. Patient will continue to get factors as an outpatient. Patient states has not been out of bed much - Will request PT eval. 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 Cleared to be discharged by hematology. (4) Sepsis ICD Code: A41.9 Status: Resolved Plan: Present on admission. Infectious disease consulted on following. Id consulted - antibiotics as per ID - Will switch to Voriconazole orally and finish Rx for C glabrata sepsis Continue Levaquin for prolonged multiple GNR sepsis - give until February 02 ID signed off (5) Poor appetite ICD Code: R63.0 Status: Resolved Plan: Continue Marinol. Seems to have improved (6) Hypotension ICD Code: I95.9 Status: Resolved (7) Tooth infection ICD Code: K04.7 Status: Acute Plan: OMF consulted. The procedure was not complicated by bleeding and he is doing well from a clinical standpoint this time. Assessment and Plan GI prophylaxis: Place on PPI. DVT prophylaxis: SCDs, prophylaxis given hemarthrosis. Discharge Planning DC pending PT evaluation. Problem Qualifiers (1) Anemia: Qualified Code: D64.9 - Anemia, unspecified type (2) Sepsis: Qualified Code: A41.9 - Sepsis, due to unspecified organism (3) Hypotension: Qualified Code: I95.9 - Hypotension, unspecified hypotension type Ritesh Mclaughlin MD Jan 02, 2017 10:32
[2017-01-02] MEDS: DRONABINOL 2.5 MG CAP PO SCH ×2 (13:31→16:00)
[2017-01-02] MEDS: VORICONAZOLE 200 MG TAB PO SCH ×2 (13:31→20:23)
[2017-01-02] MEDS: [UNRECOGNIZED DRUG - OTHER] IV SCH (14:53)
[2017-01-02] MEDS: LEVOFLOXACIN 750 MG TAB PO SCH (19:21)
[2017-01-02] MEDS: REMOVE OLD PATCH T-DERMAL SCH (20:25)
[2017-01-02] MEDS: [UNRECOGNIZED DRUG - OTHER] IV SCH (23:02)
[2017-01-03] VITALS: BP 118/64; PULSE 95; RESP 17; TEMP 96.6; O2SAT 98
[2017-01-03] MEDS: HYDROmorphone HCL PF 2 MG/ML VIAL IV PUSH PRN ×3 (02:19→19:34)
[2017-01-03 04:00] VITALS: BP 109/60; PULSE 88; RESP 17; TEMP 97.5; O2SAT 99
[2017-01-03] MEDS: ALPRAZolam 0.5 MG TAB PO SCH ×2 (06:08→14:21)
[2017-01-03 08:00] VITALS: BP 133/78; PULSE 100; RESP 20; TEMP 97.1; O2SAT 97
[2017-01-03] MEDS: SILVER SULFADIAZINE 1% CR 50 GM JAR TOPICAL SCH ×2 (08:38→19:24)
[2017-01-03] MEDS: MORPHINE SULFATE 60 MG CONTROLLED RELEASE TAB PO SCH ×2 (08:43→21:41)
[2017-01-03] MEDS: VORICONAZOLE 200 MG TAB PO SCH ×2 (08:43→21:41)
[2017-01-03] MEDS: AMINOCAPROIC ACID 500 MG TAB PO SCH ×2 (08:43→21:41)
[2017-01-03] MEDS: SODIUM CHLORIDE 0.9% FLUSH 10 ML FLUSH IV FLUSH SCH (08:46)
[2017-01-03] MEDS: DRONABINOL 2.5 MG CAP PO SCH ×2 (11:00→14:21)
--- NOTE | 2017-01-03 11:17 | PD.ONC.PN ---
Subjective Subjective Remarks Afebrile overnight. Patient still having some pain in right shoulder. Concerned about going home. States furniture not ready in apartment yet. Objective Data Date Time Temp Pulse Resp B/P Pulse Ox O2 Delivery O2 Flow Rate FiO2 01/03/17 08:00 97.1 100 20 133/78 97 01/03/17 04:00 97.5 88 17 109/60 99 01/03/17 00:00 96.6 95 17 118/64 98 01/02/17 20:00 97.7 94 18 118/72 97 01/02/17 16:29 97.6 88 16 122/69 99 01/02/17 12:00 97.1 96 16 108/72 97 Result Diagram: 12/31/16 1425 Administered Medications Medications (Trade) Dose Ordered Sig/Mike Route PRN Reason Start Time Stop Time Status Last Admin Dose Admin Sodium Chloride (NS Flush) 2 ml UNSCH PRN IVF FLUSH AFTER USING IV ACCESS 12/10/16 13:45 12/25/16 08:49 Morphine Sulfate (Oramorph Sr) 60 mg Q12HR PO 12/10/16 21:00 01/03/17 08:43 Levofloxacin (Levaquin) 750 mg Q24H PO 12/11/16 18:00 02/02/17 23:00 01/02/17 19:21 Miscellaneous Information 1 HS T-DERMAL 12/13/16 21:00 12/16/16 22:02 Nicotine (Nicotine Gum) 4 mg UNSCH PRN CHEW NICOTINE CRAVINGS 12/13/16 13:30 12/31/16 20:46 Silver Sulfadiazine (Silvadene 1% Cream (50 Gm)) 1 applic Q12HR TOPICAL 12/16/16 09:00 12/27/16 10:00 Dronabinol 2.5 mg 2.5 mg BID@11,16 PO 12/19/16 16:00 01/02/17 13:31 Sodium Chloride (NS 1000 ml Inj) 1,000 ml @ 84 mls/hr [id number] IV 12/19/16 21:00 01/01/17 20:11 Acetaminophen (Tylenol) 650 mg Q4H PRN PO FEVER, headache 12/27/16 04:15 12/28/16 22:29 Alprazolam (Xanax) 0.5 mg Q8H PO 12/27/16 23:00 01/03/17 06:08 Voriconazole (Vfend) 200 mg Q12HR PO 01/02/17 12:00 01/04/17 23:00 01/03/17 08:43 Aminocaproic Acid (Amicar) 2,000 mg Q12HR PO 01/01/17 16:00 01/03/17 08:43 Oxycodone HCl (Roxicodone) 30 mg Q4H PRN PO BREAKTHROUGH PAIN 01/01/17 14:00 01/03/17 08:41 Hydromorphone HCl (Dilaudid Pf Inj) 2 mg Q8HR PRN IV PUSH BREAKTHROUGH PAIN 01/01/17 14:00 01/03/17 10:25 Patient Own Medication PT OWN MED: FEIBA 7,500 UN... Q24H IV 01/01/17 14:00 01/02/17 14:53 Patient Own Medication PT OWN MED: PT OWN M... Q24H IV 01/01/17 23:00 01/02/17 23:02 Objective Remarks GENERAL: Young man, sitting up in bed in [facility]. SKIN: Warm and dry. HEAD: Normocephalic. EYES: No injection or drainage. NECK: Supple, trachea midline. CARDIOVASCULAR: +S1/S2. RESPIRATORY: clear to auscultation in all lung [place]. GASTROINTESTINAL: Abdomen soft, non-tender, nondistended. EXTREMITIES: No cyanosis. chronic joint changes noted. no bruising or acute joint swelling noted. NEUROLOGICAL: awake and alert, normal speech. moving all extremities. Assessment/Plan Problem List: (1) Hemophilia A Status: Chronic Plan: 01/03: does not require inpatient management any longer. clear for discharge from hematology perspective. continue NovoSeven every 24 hours and FEIBA every 24 hours, (alternating 12 hours). follow up in clinic upon discharge. will consult case management for assistance as patient concerned about social issues upon discharge--(he states his apartment does not have any furniture and he will not be able to get medications filled) -- Associated with high circulating inhibitor titer; --on oral oxycodone, long-acting morphine sulfate and hydromorphone for breakthrough pain IV. 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 Attending Statement Complaining of shoulder pain Denies any bleeding Feels better Home soon The exam, history, and the medical decision-making described in the above note were completed with the assistance of the mid-level provider. I reviewed and agree with the findings presented. I attest that I had a [id number] encounter with the patient on the same day, and personally performed and documented my assessment and findings in the medical record. Problem Qualifiers (1) Sepsis: Qualified Code: A41.9 - Sepsis, due to unspecified organism Nallely Brand Jan 03, 2017 11:17 Lenin Harris MD Jan 03, 2017 21:32
[2017-01-03] MEDS ORDERED: WHEEMIS3 (11:39)
[2017-01-03 12:00] VITALS: BP 128/77; PULSE 98; RESP 20; TEMP 97.6; O2SAT 96
[2017-01-03] MEDS: NICOTINE 4 MG/GUM CHEW PRN ×3 (12:36→21:45)
[2017-01-03] MEDS: [UNRECOGNIZED DRUG - OTHER] IV SCH (14:21)
[2017-01-03] MEDS: SODIUM CHLOR 0.9% 1000 ML INJ 1,000 ML IV SCH (14:32)
[2017-01-03 16:09] VITALS: BP 102/55; PULSE 93; RESP 19; TEMP 96.6; O2SAT 94
[2017-01-03] MEDS: LEVOFLOXACIN 750 MG TAB PO SCH (16:28)
[2017-01-03 20:00] VITALS: BP 106/57; PULSE 95; RESP 19; TEMP 97.9; O2SAT 95
[2017-01-03] MEDS: REMOVE OLD PATCH T-DERMAL SCH (21:00)
[2017-01-03] MEDS: FACTOR VIIA (RECOMB) 5 MG VIAL IV PUSH SCH (23:00)
--- NOTE | 2017-01-03 23:44 | HHI.PR ---
Subjective Remarks Patient seen earlier in am at 9:30 AM Patient states pain is controlled patient whishes to stay until Thursday and states that if discharged he plans to appeal to discharge. stable vital signs denies cp/sob no diarrhea Objective Vitals Vital Signs Date Time Temp Pulse Resp B/P Pulse Ox O2 Delivery O2 Flow Rate FiO2 01/03/17 20:00 97.9 95 19 106/57 95 01/03/17 16:09 96.6 93 19 102/55 94 Manual Cuff/Auscultation 01/03/17 12:00 97.6 98 20 128/77 96 01/03/17 08:00 97.1 100 20 133/78 97 01/03/17 04:00 97.5 88 17 109/60 99 01/03/17 00:00 96.6 95 17 118/64 98 I/O 01/02/17 01/02/17 01/02/17 01/03/17 01/03/17 01/03/17 07:00 15:00 23:00 07:00 15:00 23:00 Intake Total 870 ml 600 ml 960 ml 790 ml 200 ml Output Total 900 ml 1400 ml 1250 ml 3250 ml Balance -30 ml -800 ml 960 ml -460 ml -3050 ml Intake Oral 200 ml 600 ml 960 ml 480 ml 200 ml IV Total 670 ml 310 ml Output Urine Total 900 ml 1400 ml 1250 ml 3250 ml # Voids 2 Result Diagram: 12/31/16 1425 Imaging Last Impressions Chest X-Ray 01/01/17 0000 Signed Impressions: Service Date/Time: December 14:54 - CONCLUSION: 1. Right PICC line tip in the mid SVC, approximately 3-4 cm above the atriocaval junction. Nick Garcia MD Upper Extremity CT 12/26/16 0000 Signed Impressions: Service Date/Time: Monday, December 26, 2016 13:20 - CONCLUSION: Patchy right lung opacity. Right shoulder CT otherwise within normal limits. Salvador Najera MD Lower Extremity CT 12/26/16 0000 Signed Impressions: Service Date/Time: Monday, December 26, 2016 13:09 - CONCLUSION: 1. No fluid collections or hematomas identified. 2. Left hip within normal limits. 3. Severe osteoarthritic findings of the right hip. Salvador Najera MD Head CT 12/26/16 0000 Signed Impressions: Service Date/Time: Tuesday, December 27, 2016 00:03 - CONCLUSION: Unremarkable study. Asia Carr MD Upper Extremity Ultrasound 12/15/16 0000 Signed Impressions: Service Date/Time: Thursday, December 15, 2016 19:08 - CONCLUSION: 1. Negative for deep venous thrombosis. Occlusive and nonocclusive thrombus in the right cephalic vein. Alejandro Neri MD Abdomen/Pelvis CT 12/10/16 0000 Signed Impressions: Service Date/Time: Saturday, December 10, 2016 18:59 - CONCLUSION: 1. No evidence of acute abdominal or pelvic process. No masses are identified. Scot Flores MD Objective Remarks GENERAL: AAOx3, NAD SKIN: Warm and dry. Has ecchymoses in his lateral left thigh. Wound close to port, scab came off, wound with some ointment, clean base, no surrounding cellulitis HEAD: Atraumatic. Normocephalic. No temporal wasting, or tenderness. EYES: [place] conjunctiva. No petechia or hemorrhage. No scleral icterus. No injection or drainage. EARS, NOSE AND THROAT: Nose without bleeding or purulent nasal discharge. No sinus tenderness. No oral lesions noted. No exudate. No oral thrush. NECK: Trachea midline. Supple and not tender, no meningeal signs CARDIOVASCULAR: Regular rate and rhythm. No murmurs, rubs or gallops heard RESPIRATORY: Clear to auscultation. Breath sounds equal bilaterally. No rales , wheezing or rhonchi ABDOMEN: Soft, non-tender, nondistended. Bowel sounds present and normoactive. No guarding. No rebound. No organomegaly. EXTREMITIES: No clubbing, cyanosis, or edema. Limited ROM due to the pain. His L knee hapain with any ROM. No calf tenderness. Well perfused and warm. BACK: Pain on palpation of his L hip NEUROLOGICAL: AAOx3, moves all extremities, CN II - XII grossly intact. PSYCHIATRIC: Normal affect, calm and cooperative. LINE: No evidence of infection on the port which is on his L upper chest Procedures 12/30- dental extraction x 2 Medications and IVs Current Medications Medications (Trade) Dose Ordered Sig/Mike Route Start Time Stop Time Status Last Admin (NS Flush) 2 ml UNSCH PRN IVF 12/10/16 13:45 12/25/16 08:49 (Oramorph Sr) 60 mg Q12HR PO 12/10/16 21:00 01/03/17 21:41 (Levaquin) 750 mg Q24H PO 12/11/16 18:00 02/02/17 23:00 01/03/17 16:28 Miscellaneous Information 1 HS T-DERMAL 12/13/16 21:00 12/16/16 22:02 (Nicotine Gum) 4 mg UNSCH PRN CHEW 12/13/16 13:30 01/03/17 21:45 (Silvadene 1% Cream (50 Gm)) 1 applic Q12HR TOPICAL 12/16/16 09:00 12/27/16 10:00 Dronabinol 2.5 mg 2.5 mg BID@11,16 PO 12/19/16 16:00 01/03/17 14:21 (NS 1000 ml Inj) 1,000 ml @ 84 mls/hr [id number] IV 12/19/16 21:00 01/03/17 14:32 (Tylenol) 650 mg Q4H PRN PO 12/27/16 04:15 12/28/16 22:29 (Xanax) 0.5 mg Q8H PO 12/27/16 23:00 01/03/17 14:21 (Vfend) 200 mg Q12HR PO 01/02/17 12:00 01/04/17 23:00 01/03/17 21:41 (NS Flush) See Protocol DAILY IV FLUSH 01/02/17 09:00 (NS Flush) See Protocol UNSCH PRN IV FLUSH 01/01/17 13:15 (Heparin Central Flush) See Protocol DAILY IV FLUSH 01/02/17 09:00 (Heparin Central Flush) See Protocol UNSCH PRN IV FLUSH 01/01/17 13:15 (NS Flush) UNSCH PRN IV FLUSH 01/01/17 13:15 (Amicar) 2,000 mg Q12HR PO 01/01/17 16:00 01/03/17 21:41 (Feiba Nf Inj) 7,500 units Q24H IV 01/01/17 14:00 Hold (Novoseven Rt Inj) 10 mg Q24H IV PUSH 01/01/17 23:00 (Roxicodone) 30 mg Q4H PRN PO 01/01/17 14:00 01/03/17 21:47 (Dilaudid Pf Inj) 2 mg Q8HR PRN IV PUSH 01/01/17 14:00 01/03/17 19:34 Patient Own Medication PT OWN MED: FEIBA 7,500 UN... Q24H IV 01/01/17 14:00 01/03/17 14:21 Patient Own Medication PT OWN MED: PT OWN M... Q24H IV 01/01/17 23:00 Hold 01/02/17 23:02 Urinary Catheter: No Vascular Central Line Catheter: No Line: PICC Side: Right A/P Problem List: (1) Anemia ICD Code: D64.9 Status: Acute Plan: 26-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 Presents with hematoma in the left gluteal muscle group, hemarthrosis in the left knee and pain in the left elbow. Patient status post transfusion of 2 units of packed red blood cells, H/H stable. Continue to monitor. (2) Hemarthrosis ICD Code: M25.00 Status: Resolved Plan: With joint swelling. His pain involving the left elbow, left knee, left hip. Continue pain control with [employer] Dilaudid pump. Left hip posterior thigh hematoma with overlying ecchymosis with limitation in range of motion - stable There are no signs of compartment syndrome. Peripheral pulses are strong and equal. On Amicar, Novosen as per hematology. 01/02 patient has been cleared to be discharged. Patient will continue to get factors as an outpatient. Patient states has not been out of bed much - Will request PT eval. 01/03 PT evaluated patient and determined that patient can go home without PT. There is no medical reason to keep patient here. Patient requests to be evaluated by Oncology since he believes that he is still bleeding into his joints. Case discussed with ankita Brand who will see the patient. Patient relied to Oncology PA that he does not have furniture at his home, she believes that he is not a safe discharge however he did not mention any of this to me and only told me that if discharged he was planning to appeal his discharge. 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 Cleared to be discharged by hematology. (4) Sepsis ICD Code: A41.9 Status: Resolved Plan: Present on admission. Infectious disease consulted on following. Id consulted - antibiotics as per ID - Will switch to Voriconazole orally and finish Rx for C glabrata sepsis Continue Levaquin for prolonged multiple GNR sepsis - give until February 02 ID signed off (5) Poor appetite ICD Code: R63.0 Status: Resolved Plan: Continue Marinol. Seems to have improved (6) Hypotension ICD Code: I95.9 Status: Resolved (7) Tooth infection ICD Code: K04.7 Status: Acute Plan: OMF consulted. The procedure was not complicated by bleeding and he is doing well from a clinical standpoint this time. Swelling over in mandible has resolved and there is no evidence of active bleeding. Assessment and Plan GI prophylaxis: Place on PPI. DVT prophylaxis: SCDs, prophylaxis given hemarthrosis. Discharge Planning Dc in am once safe discharge available. CM following. Case discussed with CM and Oncology PA. Problem Qualifiers (1) Anemia: Qualified Code: D64.9 - Anemia, unspecified type (2) Sepsis: Qualified Code: A41.9 - Sepsis, due to unspecified organism (3) Hypotension: Qualified Code: I95.9 - Hypotension, unspecified hypotension type Ritesh Mcalughlin MD Jan 03, 2017 23:44
[2017-01-04] VITALS: BP 126/65; PULSE 94; RESP 18; TEMP 97.6; O2SAT 98
[2017-01-04] MEDS: SODIUM CHLOR 0.9% 1000 ML INJ 1,000 ML IV SCH
[2017-01-04] MEDS: NICOTINE 4 MG/GUM CHEW PRN ×9 (00:05→22:44)
[2017-01-04] MEDS: ALPRAZolam 0.5 MG TAB PO SCH ×4 (00:05→22:44)
[2017-01-04] MEDS: HYDROmorphone HCL PF 2 MG/ML VIAL IV PUSH PRN ×3 (03:36→19:13)
[2017-01-04 04:00] VITALS: BP 115/76; PULSE 99; RESP 19; TEMP 97; O2SAT 96
[2017-01-04] MEDS: SILVER SULFADIAZINE 1% CR 50 GM JAR TOPICAL SCH ×2 (08:13→19:49)
[2017-01-04] MEDS: VORICONAZOLE 200 MG TAB PO SCH ×2 (08:15→21:52)
[2017-01-04] MEDS: AMINOCAPROIC ACID 500 MG TAB PO SCH ×2 (08:15→21:51)
[2017-01-04] MEDS: MORPHINE SULFATE 60 MG CONTROLLED RELEASE TAB PO SCH ×2 (08:16→21:51)
[2017-01-04 08:43] VITALS: BP 110/59; PULSE 94; RESP 20; TEMP 98.1; O2SAT 96
[2017-01-04] MEDS: SODIUM CHLORIDE 0.9% FLUSH 10 ML FLUSH IV FLUSH SCH (09:00)
[2017-01-04] MEDS: DRONABINOL 2.5 MG CAP PO SCH ×2 (10:04→15:32)
--- NOTE | 2017-01-04 11:33 | PD.ONC.PN ---
Subjective Subjective Remarks Afebrile overnight. Patient resting comfortably in bed. States he continues to have pain in the right shoulder. Has not gotten out of bed yet, but plans to later this afternoon. Objective Data Date Time Temp Pulse Resp B/P Pulse Ox O2 Delivery O2 Flow Rate FiO2 01/04/17 08:43 98.1 94 20 110/59 96 01/04/17 04:00 97.0 99 19 115/76 96 01/04/17 00:00 97.6 94 18 126/65 98 01/03/17 20:00 97.9 95 19 106/57 95 01/03/17 16:09 96.6 93 19 102/55 94 Manual Cuff/Auscultation 01/03/17 12:00 97.6 98 20 128/77 96 Result Diagram: 12/31/16 1425 Administered Medications Medications (Trade) Dose Ordered Sig/Mike Route PRN Reason Start Time Stop Time Status Last Admin Dose Admin Sodium Chloride (NS Flush) 2 ml UNSCH PRN IVF FLUSH AFTER USING IV ACCESS 12/10/16 13:45 12/25/16 08:49 Morphine Sulfate (Oramorph Sr) 60 mg Q12HR PO 12/10/16 21:00 01/04/17 08:16 Levofloxacin (Levaquin) 750 mg Q24H PO 12/11/16 18:00 02/02/17 23:00 01/03/17 16:28 Miscellaneous Information 1 HS T-DERMAL 12/13/16 21:00 12/16/16 22:02 Nicotine (Nicotine Gum) 4 mg UNSCH PRN CHEW NICOTINE CRAVINGS 12/13/16 13:30 01/04/17 08:20 Silver Sulfadiazine (Silvadene 1% Cream (50 Gm)) 1 applic Q12HR TOPICAL 12/16/16 09:00 12/27/16 10:00 Dronabinol 2.5 mg 2.5 mg BID@11,16 PO 12/19/16 16:00 01/04/17 10:04 Sodium Chloride (NS 1000 ml Inj) 1,000 ml @ 84 mls/hr [id number] IV 12/19/16 21:00 01/03/17 14:32 Acetaminophen (Tylenol) 650 mg Q4H PRN PO FEVER, headache 12/27/16 04:15 12/28/16 22:29 Alprazolam (Xanax) 0.5 mg Q8H PO 12/27/16 23:00 01/04/17 05:46 Voriconazole (Vfend) 200 mg Q12HR PO 01/02/17 12:00 01/04/17 23:00 01/04/17 08:15 Aminocaproic Acid (Amicar) 2,000 mg Q12HR PO 01/01/17 16:00 01/04/17 08:15 Oxycodone HCl (Roxicodone) 30 mg Q4H PRN PO BREAKTHROUGH PAIN 01/01/17 14:00 01/04/17 10:03 Hydromorphone HCl (Dilaudid Pf Inj) 2 mg Q8HR PRN IV PUSH BREAKTHROUGH PAIN 01/01/17 14:00 01/04/17 03:36 Patient Own Medication PT OWN MED: FEIBA 7,500 UN... Q24H IV 01/01/17 14:00 Hold 01/03/17 14:21 Patient Own Medication PT OWN MED: PT OWN M... Q24H IV 01/01/17 23:00 Hold 01/02/17 23:02 Factor VII (Pha) (Novoseven Rt Inj) 10 mg Q24H IV PUSH 01/03/17 23:00 01/03/17 23:00 Objective Remarks GENERAL: Young man, upright in bed, working on computer SKIN: Warm and dry. HEAD: Normocephalic. swelling along right jaw appears improve MOUTH: no bleeding from extraction sites. EYES: No injection or drainage. NECK: Supple, trachea midline. CARDIOVASCULAR: +S1/S2. RESPIRATORY: clear to auscultation in all lung [place]. GASTROINTESTINAL: Abdomen soft, non-tender, nondistended. EXTREMITIES: No cyanosis. no signs of acute bleed in joints. +chronic joint changes but no acute swelling or bruising. NEUROLOGICAL: awake and alert, normal speech. moving all extremities. Assessment/Plan Problem List: (1) Hemophilia A Status: Chronic Plan: 01/04: clear for discharge. follow up in clinic. continue alternating NovoSeven and FEIBA. 01/03: does not require inpatient management any longer. clear for discharge from hematology perspective. continue NovoSeven every 24 hours and FEIBA every 24 hours, (alternating 12 hours). follow up in clinic upon discharge. will consult case management for assistance as patient concerned about social issues upon discharge--(he states his apartment does not have any furniture and he will not be able to get medications filled) -- Associated with high circulating inhibitor titer; --on oral oxycodone, long-acting morphine sulfate and hydromorphone for breakthrough pain IV. 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 Attending Statement No new complaints Continues to have right shoulder pain No bleeding noted Okay to discharge home Dr. Adam to follow The exam, history, and the medical decision-making described in the above note were completed with the assistance of the mid-level provider. I reviewed and agree with the findings presented. I attest that I had a [id number] encounter with the patient on the same day, and personally performed and documented my assessment and findings in the medical record. Problem Qualifiers (1) Sepsis: Qualified Code: A41.9 - Sepsis, due to unspecified organism Nallely Brand Jan 04, 2017 11:33 Lenin Harris MD Jan 05, 2017 00:29
[2017-01-04 12:26] VITALS: BP 135/84; PULSE 104; RESP 20; TEMP 98.2; O2SAT 96
--- NOTE | 2017-01-04 13:52 | HHI.PR ---
Subjective Remarks denies cp/sob pain controlled denies cough, fevers, diarrhea Stable vital signs Objective Vitals Vital Signs Date Time Temp Pulse Resp B/P Pulse Ox O2 Delivery O2 Flow Rate FiO2 01/04/17 12:26 98.2 104 20 135/84 96 01/04/17 08:43 98.1 94 20 110/59 96 01/04/17 04:00 97.0 99 19 115/76 96 01/04/17 00:00 97.6 94 18 126/65 98 01/03/17 20:00 97.9 95 19 106/57 95 01/03/17 16:09 96.6 93 19 102/55 94 Manual Cuff/Auscultation I/O 01/03/17 01/03/17 01/03/17 01/04/17 01/04/17 01/04/17 07:00 15:00 23:00 07:00 15:00 23:00 Intake Total 790 ml 200 ml 480 ml 720 ml Output Total 1250 ml 3250 ml 450 ml 1600 ml Balance -460 ml -3050 ml 30 ml -880 ml Intake Oral 480 ml 200 ml 480 ml 720 ml IV Total 310 ml Output Urine Total 1250 ml 3250 ml 450 ml 1600 ml Result Diagram: 12/31/16 1425 Imaging Last Impressions Chest X-Ray 01/01/17 0000 Signed Impressions: Service Date/Time: December 14:54 - CONCLUSION: 1. Right PICC line tip in the mid SVC, approximately 3-4 cm above the atriocaval junction. Nick Garcia MD Upper Extremity CT 12/26/16 0000 Signed Impressions: Service Date/Time: Monday, December 26, 2016 13:20 - CONCLUSION: Patchy right lung opacity. Right shoulder CT otherwise within normal limits. Salvador Najera MD Lower Extremity CT 12/26/16 0000 Signed Impressions: Service Date/Time: Monday, December 26, 2016 13:09 - CONCLUSION: 1. No fluid collections or hematomas identified. 2. Left hip within normal limits. 3. Severe osteoarthritic findings of the right hip. Salvador Najera MD Head CT 12/26/16 0000 Signed Impressions: Service Date/Time: Tuesday, December 27, 2016 00:03 - CONCLUSION: Unremarkable study. Asia Carr MD Upper Extremity Ultrasound 12/15/16 0000 Signed Impressions: Service Date/Time: Thursday, December 15, 2016 19:08 - CONCLUSION: 1. Negative for deep venous thrombosis. Occlusive and nonocclusive thrombus in the right cephalic vein. Alejandro Neri MD Abdomen/Pelvis CT 12/10/16 0000 Signed Impressions: Service Date/Time: Saturday, December 10, 2016 18:59 - CONCLUSION: 1. No evidence of acute abdominal or pelvic process. No masses are identified. Scot Flores MD Objective Remarks GENERAL: AAOx3, NAD SKIN: Warm and dry. Has ecchymoses in his lateral left thigh. Wound close to port, scab came off, wound with some ointment, clean base, no surrounding cellulitis HEAD: Atraumatic. Normocephalic. No temporal wasting, or tenderness. EYES: [place] conjunctiva. No petechia or hemorrhage. No scleral icterus. No injection or drainage. EARS, NOSE AND THROAT: Nose without bleeding or purulent nasal discharge. No sinus tenderness. No oral lesions noted. No exudate. No oral thrush. NECK: Trachea midline. Supple and not tender, no meningeal signs CARDIOVASCULAR: Regular rate and rhythm. No murmurs, rubs or gallops heard RESPIRATORY: Clear to auscultation. Breath sounds equal bilaterally. No rales , wheezing or rhonchi ABDOMEN: Soft, non-tender, nondistended. Bowel sounds present and normoactive. No guarding. No rebound. No organomegaly. EXTREMITIES: No clubbing, cyanosis, or edema. Limited ROM due to the pain. His L knee hapain with any ROM. No calf tenderness. Well perfused and warm. BACK: Pain on palpation of his L hip NEUROLOGICAL: AAOx3, moves all extremities, CN II - XII grossly intact. PSYCHIATRIC: Normal affect, calm and cooperative. LINE: No evidence of infection on the port which is on his L upper chest Procedures 12/30- dental extraction x 2 Medications and IVs Current Medications Medications (Trade) Dose Ordered Sig/Mike Route Start Time Stop Time Status Last Admin (NS Flush) 2 ml UNSCH PRN IVF 12/10/16 13:45 12/25/16 08:49 (Oramorph Sr) 60 mg Q12HR PO 12/10/16 21:00 01/04/17 08:16 (Levaquin) 750 mg Q24H PO 12/11/16 18:00 02/02/17 23:00 01/03/17 16:28 Miscellaneous Information 1 HS T-DERMAL 12/13/16 21:00 12/16/16 22:02 (Nicotine Gum) 4 mg UNSCH PRN CHEW 12/13/16 13:30 01/04/17 11:34 (Silvadene 1% Cream (50 Gm)) 1 applic Q12HR TOPICAL 12/16/16 09:00 12/27/16 10:00 Dronabinol 2.5 mg 2.5 mg BID@11,16 PO 12/19/16 16:00 01/04/17 15:32 (NS 1000 ml Inj) 1,000 ml @ 84 mls/hr [id number] IV 12/19/16 21:00 01/03/17 14:32 (Tylenol) 650 mg Q4H PRN PO 12/27/16 04:15 12/28/16 22:29 (Xanax) 0.5 mg Q8H PO 12/27/16 23:00 01/04/17 15:32 (Vfend) 200 mg Q12HR PO 01/02/17 12:00 01/04/17 23:00 01/04/17 08:15 (NS Flush) See Protocol DAILY IV FLUSH 01/02/17 09:00 (NS Flush) See Protocol UNSCH PRN IV FLUSH 01/01/17 13:15 (Heparin Central Flush) See Protocol DAILY IV FLUSH 01/02/17 09:00 (Heparin Central Flush) See Protocol UNSCH PRN IV FLUSH 01/01/17 13:15 (NS Flush) UNSCH PRN IV FLUSH 01/01/17 13:15 (Amicar) 2,000 mg Q12HR PO 01/01/17 16:00 01/04/17 08:15 (Feiba Nf Inj) 7,500 units Q24H IV 01/01/17 14:00 01/04/17 14:24 (Roxicodone) 30 mg Q4H PRN PO 01/01/17 14:00 01/04/17 14:25 (Dilaudid Pf Inj) 2 mg Q8HR PRN IV PUSH 01/01/17 14:00 01/04/17 11:32 Patient Own Medication PT OWN MED: FEIBA 7,500 UN... Q24H IV 01/01/17 14:00 Hold 01/03/17 14:21 Patient Own Medication PT OWN MED: PT OWN M... 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 Presents with hematoma in the left gluteal muscle group, hemarthrosis in the left knee and pain in the left elbow. Patient status post transfusion of 2 units of packed red blood cells, H/H stable. Continue to monitor. (2) Hemarthrosis ICD Code: M25.00 Status: Resolved Plan: With joint swelling. His pain involving the left elbow, left knee, left hip. Continue pain control with ANTENNA ENGINEER Dilaudid pump. Left hip posterior thigh hematoma with overlying ecchymosis with limitation in range of motion - stable There are no signs of compartment syndrome. Peripheral pulses are strong and equal. On Amicar, Novosen as per hematology. 01/02 patient has been cleared to be discharged. Patient will continue to get factors as an outpatient. Patient states has not been out of bed much - Will request PT eval. 01/03 PT evaluated patient and determined that patient can go home without PT. There is no medical reason to keep patient here. Patient requests to be evaluated by Oncology since he believes that he is still bleeding into his joints. Case discussed with ankita Brand who will see the patient. Patient relied to Oncology PA that he does not have furniture at his home, she believes that he is not a safe discharge however he did not mention any of this to me and only told me that if discharged he was planning to appeal his discharge. 01/04 Patient states will be ready to go home 0n 01/05. 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 Cleared to be discharged by hematology. (4) Sepsis ICD Code: A41.9 Status: Resolved Plan: Present on admission. Infectious disease consulted on following. Id consulted - antibiotics as per ID - Will switch to Voriconazole orally and finish Rx for C glabrata sepsis Continue Levaquin for prolonged multiple GNR sepsis - give until February 02 ID signed off (5) Poor appetite ICD Code: R63.0 Status: Resolved Plan: Continue Marinol. Seems to have improved (6) Hypotension ICD Code: I95.9 Status: Resolved Plan: Resolved after IV fluid boluses. (7) Tooth infection ICD Code: K04.7 Status: Acute Plan: OMF consulted. The procedure was not complicated by bleeding and he is doing well from a clinical standpoint this time. Swelling over in mandible has resolved and there is no evidence of active bleeding. Assessment and Plan GI prophylaxis: Place on PPI. DVT prophylaxis: SCDs, prophylaxis given hemarthrosis. Discharge Planning Dc in am once safe discharge available. CM following. Problem Qualifiers (1) Anemia: Qualified Code: D64.9 - Anemia, unspecified type (2) Sepsis: Qualified Code: A41.9 - Sepsis, due to unspecified organism (3) Hypotension: Qualified Code: I95.9 - Hypotension, unspecified hypotension type Ritesh Mclaughlin MD Jan 04, 2017 13:52
[2017-01-04] MEDS: ANTI-INHIBITOR COAGULANT COMPLEX 100 UNIT INJ IV SCH ×2 (14:00→14:24)
[2017-01-04 16:00] VITALS: BP 120/76; PULSE 94; RESP 20; TEMP 98.1; O2SAT 97
[2017-01-04] MEDS: LEVOFLOXACIN 750 MG TAB PO SCH (17:50)
[2017-01-04] MEDS: REMOVE OLD PATCH T-DERMAL SCH (19:49)
[2017-01-04 20:00] VITALS: BP 131/67; PULSE 108; RESP 19; TEMP 99.6; O2SAT 99
[2017-01-04] MEDS: FACTOR VIIA (RECOMB) 5 MG VIAL IV PUSH SCH (22:45)
[2017-01-05] VITALS: BP 121/69; PULSE 115; RESP 18; TEMP 98.3; O2SAT 98
[2017-01-05] MEDS: NICOTINE 4 MG/GUM CHEW PRN ×6 (01:12→13:58)
[2017-01-05 04:00] VITALS: BP 142/75; PULSE 96; RESP 19; TEMP 97.8; O2SAT 99
[2017-01-05] MEDS: HYDROmorphone HCL PF 2 MG/ML VIAL IV PUSH PRN ×2 (04:09→12:05)
[2017-01-05] MEDS: ALPRAZolam 0.5 MG TAB PO SCH ×2 (06:27→15:22)
[2017-01-05 08:00] VITALS: BP 126/83; PULSE 99; RESP 18; TEMP 98.8; O2SAT 98
[2017-01-05] MEDS: SILVER SULFADIAZINE 1% CR 50 GM JAR TOPICAL SCH (09:43)
[2017-01-05] MEDS: MORPHINE SULFATE 60 MG CONTROLLED RELEASE TAB PO SCH (09:47)
[2017-01-05] MEDS: SODIUM CHLORIDE 0.9% FLUSH 10 ML FLUSH IV FLUSH SCH (09:47)
[2017-01-05] MEDS: AMINOCAPROIC ACID 500 MG TAB PO SCH (09:47)
--- NOTE | 2017-01-05 11:05 | HHI.DCPOC ---
Discharge Care Plan Diagnosis: (1) Hemarthrosis (2) Joint pain (3) Sepsis (4) Poor appetite (5) Hypotension (6) Infection of venous access port (7) Tooth infection (8) Mandibular swelling (9) Hemophilia A (10) Anemia (11) Tobacco abuse (12) Chronic pain Goals to Promote Your Health * To prevent worsening of your condition and complications * To maintain your health at the optimal level Directions to Meet Your Goals Take your medications as prescribed Follow your dietary instruction Follow activity as directed Keep your appointments as scheduled Take your immunizations and boosters as scheduled If your symptoms worsen call your PCP, if no PCP go to Urgent Care Center or Emergency Room Smoking is Dangerous to Your Health. Avoid second hand smoke Call the 24-hour hour crisis hotline for domestic abuse at Ritesh Mclaughlin MD Jan 05, 2017 11:05
[2017-01-05] MEDS ORDERED: ALPR.5 PO (11:22)
[2017-01-05] MEDS ORDERED: MORP1TAB26 PO (11:22)
[2017-01-05] MEDS ORDERED: OXYC-392 PO (11:22)
--- NOTE | 2017-01-05 11:25 | HHI.FF ---
Face to Face Verification Diagnosis: (1) Hemophilia A (2) Infection of venous access port (3) Sepsis (4) Hemarthrosis (5) Joint pain (6) Tobacco abuse (7) Chronic pain Physical Therapy Order: Improve ambulation, Strength and gait training Home Health Nursing Order: Medication education-adverse effect Wound care and dressing changes Nursing assessment with vital signs I have seen patient Fidel GonzalezJr on 01/05/17. My clinical findings support the need for the requested home health care services because: Ltd mobility - disease progression Deconditioned w/ increased weakness Need for psychosocial assistance High risk of falls I certify that my clinical findings support that this patient is homebound because: Unsafe to leave home unassisted Unable to use public transportation Ritesh Mclaughlin MD Jan 05, 2017 11:25
--- NOTE | 2017-01-05 11:31 | HHI.DS ---
Discharge Summary Admission Date December 10, 2016 at 14:57 Discharge Date: Jan 05, 2017 Admitting Diagnosis (1) Anemia ICD Code: D64.9 Diagnosis: Principal (2) Hemarthrosis ICD Code: M25.00 Diagnosis: Principal (3) Hemophilia A ICD Code: D66 Diagnosis: Principal (4) Sepsis ICD Code: A41.9 Diagnosis: Principal (5) Poor appetite ICD Code: R63.0 Diagnosis: Principal (6) Hypotension ICD Code: I95.9 Diagnosis: Principal (7) Tooth infection ICD Code: K04.7 Diagnosis: Principal Procedures 12/30- dental extraction x 2 Brief History - From Admission Patient is a 26-year-old male with known history of hemophilia a he is on prophylactic doses of Feiba at 7500 IV units daily and NovoSeven , anxiety disorder , 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 Baseline gets around with crutches. This morning with severe pain mainly involving the left lower leg which prompted patient to call EMS and brought in here for further evaluation and management. Patient denies any melena hematochezia no hematuria, no epistaxis.no abdominal pain Patient states he takes his pain medications on a regular basis and this time pain is not relieved with by mouth medications. Imaging Last Impressions Chest X-Ray 01/01/17 0000 Signed Impressions: Service Date/Time: December 14:54 - CONCLUSION: 1. Right PICC line tip in the mid SVC, approximately 3-4 cm above the atriocaval junction. Nick Garcia MD Upper Extremity CT 12/26/16 0000 Signed Impressions: Service Date/Time: Monday, December 26, 2016 13:20 - CONCLUSION: Patchy right lung opacity. Right shoulder CT otherwise within normal limits. Salvador Najera MD Lower Extremity CT 12/26/16 0000 Signed Impressions: Service Date/Time: Monday, December 26, 2016 13:09 - CONCLUSION: 1. No fluid collections or hematomas identified. 2. Left hip within normal limits. 3. Severe osteoarthritic findings of the right hip. Salvador Najera MD Head CT 12/26/16 0000 Signed Impressions: Service Date/Time: Tuesday, December 27, 2016 00:03 - CONCLUSION: Unremarkable study. Asia Carr MD Upper Extremity Ultrasound 12/15/16 0000 Signed Impressions: Service Date/Time: Thursday, December 15, 2016 19:08 - CONCLUSION: 1. Negative for deep venous thrombosis. Occlusive and nonocclusive thrombus in the right cephalic vein. Alejandro Neri MD Abdomen/Pelvis CT 12/10/16 0000 Signed Impressions: Service Date/Time: Saturday, December 10, 2016 18:59 - CONCLUSION: 1. No evidence of acute abdominal or pelvic process. No masses are identified. Scot Flores MD PE at Discharge GENERAL: AAOx3, NAD SKIN: Warm and dry. Has ecchymoses in his lateral left thigh. Wound close to port, scab came off, wound with some ointment, clean base, no surrounding cellulitis HEAD: Atraumatic. Normocephalic. No temporal wasting, or tenderness. EYES: [place] conjunctiva. No petechia or hemorrhage. No scleral icterus. No injection or drainage. EARS, NOSE AND THROAT: Nose without bleeding or purulent nasal discharge. No sinus tenderness. No oral lesions noted. No exudate. No oral thrush. NECK: Trachea midline. Supple and not tender, no meningeal signs CARDIOVASCULAR: Regular rate and rhythm. No murmurs, rubs or gallops heard RESPIRATORY: Clear to auscultation. Breath sounds equal bilaterally. No rales , wheezing or rhonchi ABDOMEN: Soft, non-tender, nondistended. Bowel sounds present and normoactive. No guarding. No rebound. No organomegaly. EXTREMITIES: No clubbing, cyanosis, or edema. Limited ROM due to the pain. His L knee hapain with any ROM. No calf tenderness. Well perfused and warm. BACK: Pain on palpation of his L hip NEUROLOGICAL: AAOx3, moves all extremities, CN II - XII grossly intact. PSYCHIATRIC: Normal affect, calm and cooperative. LINE: No evidence of infection on the port which is on his L upper chest Pt update on day of discharge Patient is sitting in bed. Denies cp/sob. Denies fevers and chills. Patient refused home health care to rehabilitation caseworker. will Dc home. 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 Presents with hematoma in the left gluteal muscle group, hemarthrosis in the left knee and pain in the left elbow. Patient status post transfusion of 2 units of packed red blood cells, H/H stable. Continue to monitor. (2) Hemarthrosis With joint swelling. His pain involving the left elbow, left knee, left hip. Continue pain control with FORMING MACHINE UPKEEP MECHANIC Dilaudid pump. Left hip posterior thigh hematoma with overlying ecchymosis with limitation in range of motion - stable There are no signs of compartment syndrome. Peripheral pulses are strong and equal. On Amicar, Novosen as per hematology. 01/02 patient has been cleared to be discharged. Patient will continue to get factors as an outpatient. Patient states has not been out of bed much - Will request PT eval. (3) Hemophilia A As above. Cleared to be discharged by hematology. (4) Sepsis Present on admission. Infectious disease consulted on following. Id consulted - antibiotics as per ID - Will switch to Voriconazole orally and finish Rx for C glabrata sepsis Continue Levaquin for prolonged multiple GNR sepsis - give until February 02 ID signed off (5) Poor appetite Continue Marinol. Seems to have improved (6) Hypotension Resolved after IV fluid boluses. (7) Tooth infection OMF consulted. Status post extraction of teeth 14 and 31. The procedure was complicated by bleeding which eventually was controlled. Swelling over in mandible has resolved and there is no evidence of active bleeding. GI prophylaxis: Placed on PPI. DVT prophylaxis: SCDs, prophylaxis given hemarthrosis. Pt Condition on Discharge: Stable Discharge Disposition: Disch w/ Home Health Serv Discharge Time: > 30 minutes Discharge Instructions DIET: Follow Instructions for: As Tolerated, No Restrictions Activities you can perform: Regular-No Restrictions, See Additionl Instruction Other Activity Instructions: as per Physical therapy recommendations. Follow up Referrals: Appointment for Follow Up - 1 Week with Leno Adam MD New Medications: Wheelchair (Wheelchair) 1 Mis Mis 1 EA .ROUTE DIRECTED #1 Ref 0 EA Alprazolam (Xanax) 0.5 Mg Tab 0.5 MG PO Q8H Anxiety #30 Ref 0 TAB Morphine ER (Morphine ER) 60 Mg Tab 60 MG PO Q12HR chronic pain #30 Ref 0 TAB Oxycodone (Oxycodone) 5 Mg Tab 30 MG PO Q4H PRN BREAKTHROUGH PAIN #30 Ref 0 TAB Continued Medications: Antiinhibitor Coagulant Complex Inj (Feiba NF Inj) 500 Units Inj 7500 UNITS INJ DAILY PROPHYLAXIS HEMOPHILIA Coagulation Factor VIIa (Recomb) Inj (Novoseven Rt Inj) 1 Mg Inj 10 MCG IV Q4HR HEMOPHILIA VIAL Nicotine Polacrilex (Nicotine Polacrilex) 4 Mg Gum 4 MG CHEW Q3HR PRN nicotine withdrawal Days 30 Ref 0 EA Discontinued Medications: Alprazolam (Alprazolam) 0.5 Mg Tab 0.5 MG PO Q8H Anxiety Ref 0 TAB Coagulation Factor VIIa (Recomb) Inj (Novoseven Rt Inj) 1 Mg Inj 10 MCG IV HS PROPHYLAXIS HEMOPHILIA VIAL Morphine ER (Morphine ER) 60 Mg Tab 60 MG PO Q12HR Pain Management #60 Ref 0 TAB Oxycodone (Oxycodone) 30 Mg Tab 30 MG PO Q4HR Pain Management Ref 0 TAB Ritesh Mclaughlin MD Jan 05, 2017 11:30
[2017-01-05 12:00] VITALS: BP 105/64; PULSE 77; RESP 18; TEMP 97.2; O2SAT 98
[2017-01-05] MEDS: DRONABINOL 2.5 MG CAP PO SCH (12:05)
[2017-01-05] MEDS: ANTI-INHIBITOR COAGULANT COMPLEX 100 UNIT INJ IV SCH (13:52)
[2017-01-05] MEDS ORDERED: OXYC30TA PO (15:46)
[2017-01-05] MEDS ORDERED: LEVA750T9 PO (15:52)
== END 2017-01-05 16:13 | disposition home or self-care (01) | DRG 314 ==
LOC: NEPE 13:14 → NEDA 14:57 → NEPFCDU 19:47 → HOCB 12-11 19:42
PROVIDERS: ADMIT Hospitalist; ATTEND Hospitalist
PROC: 30233N1 Transfusion of Nonautologous Red Blood Cells into Peripheral Vein, Percutaneous Approach (ICD-10-PCS; principal; 2016-12-10)
PROC: 0JPT0VZ Removal of Infusion Pump from Trunk Subcutaneous Tissue and Fascia, Open Approach (ICD-10-PCS; 2016-12-23)
PROC: 0CDXXZ0 Extraction of Lower Tooth, Single, External Approach (ICD-10-PCS; 2016-12-30)
PROC: 0CDWXZ0 Extraction of Upper Tooth, Single, External Approach (ICD-10-PCS; 2016-12-30)
PROC: 3E0T3BZ Introduction of Anesthetic Agent into Peripheral Nerves and Plexi, Percutaneous Approach (ICD-10-PCS; 2016-12-30)
DX: T80.211A Bloodstream infection due to central venous catheter, initial encounter (principal); A41.50 Gram-negative sepsis, unspecified; A41.53 Sepsis due to Serratia; D66 Hereditary factor VIII deficiency; I95.9 Hypotension, unspecified; M25.022 Hemarthrosis, left elbow; M25.062 Hemarthrosis, left knee; R63.0 Anorexia; J98.11 Atelectasis; S02.5XXA Fracture of tooth (traumatic), initial encounter for closed fracture; G89.29 Other chronic pain; F41.9 Anxiety disorder, unspecified; F17.210 Nicotine dependence, cigarettes, uncomplicated; Z84.89 Family history of other specified conditions; M79.81 Nontraumatic hematoma of soft tissue; Z79.891 Long term (current) use of opiate analgesic; Y71.8 Miscellaneous cardiovascular devices associated with adverse incidents, not elsewhere classified; Y92.009 Unspecified place in unspecified non-institutional (private) residence as the place of occurrence of the external cause; F12.90 Cannabis use, unspecified, uncomplicated; K02.9 Dental caries, unspecified; X58.XXXA Exposure to other specified factors, initial encounter; Y93.9 Activity, unspecified; Y92.9 Unspecified place or not applicable; Y99.9 Unspecified external cause status; M17.12 Unilateral primary osteoarthritis, left knee; T21.01XA Burn of unspecified degree of chest wall, initial encounter; X10.0XXA Contact with hot drinks, initial encounter; Y93.89 Activity, other specified; D64.9 Anemia, unspecified; M25.511 Pain in right shoulder
CPT/HCPCS: 36430; 36569; 70450; 71010; 73200; 73700; 74176; 76937; 80048; 80053; 80307; 81001; 83605; 83735; 84100; 85007; 85014; 85018; 85025; 85027; 85240; 85335; 85610; 85730; 86140; 86403; 86850; 86900; 86901; 86920; 86922; 87015; 87040; 87070; 87077; 87086; 87102; 87106; 87116; 87149; 87186; 87205; 87206; 93306; 93971; 94150; 96374; 96376; J0690; J0692; J1170; J1580; J2248; J2250; J2270; J2405; J2543; J2710; J3010; J3370; J7030; J7040; J7050; J7189; J7198; P9016; Q0167

== ENCOUNTER 2017-01-19 04:41 | Emergency (ER) | payer MEDICARE, OTHER ==
[~2017-01-19] VITALS: Ht 177.8 cm; Wt 79.0 kg
[~2017-01-19 04:41] MED LIST changes: +ALPR.5 PO; -ALPR0.5T3 PO; +LEVA750T9 PO; +WHEEMIS3; -[UNRECOGNIZED DRUG - CODE] IV
[2017-01-19 04:45] VITALS: BP 142/66; PULSE 122; RESP 16; TEMP 98; O2SAT 98
[2017-01-19 05:38] VITALS: O2SAT 99
--- NOTE | 2017-01-19 06:01 | PD ---
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 He reports that over the last 24 hours he has noticed some swelling and tenderness in the right calf which she was attributing to bleed. The patient is a hemophiliac. The patient reports that he increase his NovoSeven as recommended by his oxygen plant operator, Dr. Adam to administer it every 3-4 hours. He reports that at baseline he usually will administer NovoSeven once a day along with Feiba once a day. He has not increased the Feiba yet. The patient denies having any other associated bleeding. He reports that he was admitted to the hospital from December 10 through January 05 related to sepsis from gram-negative rods thought to be related to an infection in his port. The port was removed and the PICC line was placed for his self administration of his factor. He reports that it was placed approximately 2 weeks ago. He denies having any fevers. He does report having intermittent chills. He reports having continued generalized weakness and fatigue, frequently sleeping discharge. He continues to be on Levaquin as prescribed. The patient denies any cough, congestion, neck pain, chest pain, shortness of breath, abdominal pain, vomiting, diarrhea, urinary symptoms, or neurologic symptoms. 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 with recent Zolcab-g-Umla removal Hx Anticoagulant Therapy: Yes (hemophilia) Arthritis: Yes Blood Disorders: Yes (HEMOPHELIA) Anxiety: Yes Depression: No Cancer: No Cardiovascular Problems: No Chemotherapy: Yes Diminished Hearing: No Endocrine: No Gastrointestinal Disorders: Yes (history of ulcers) Genitourinary: No Immune Disorder: No Implanted Vascular Access Dvce: Yes Musculoskeletal: Yes Neurologic: No Psychiatric: Yes Reproductive: No Respiratory: No Radiation Therapy: No Ulcer: Yes Tetanus Vaccination: Unknown Past Surgical History Narrative Surgical The patient's past surgical history is significant for Vizonj-s-Jneb placement 2 and removal 2, history of compartment syndrome status post fasciotomy of the right upper extremity, history of ORIF of a left femoral neck fracture, history of left knee surgery related septic arthritis. Body Medical Devices: L-femur plate with 8 scews, right SC port. Other Surgery: Yes (MEDIPORT, I&D LEFT KNEE, plate L femur, radioactive synovectomy R knee, ) Social History Alcohol Use: Yes (RARELY) Tobacco Use: Yes (one pack per day) Substance Use: Yes (cannabis) Allergies-Medications (Allergen,Severity, Reaction): Coded Allergies: Nonsteroidal Anti-Inflammatory Agts (Verified Adverse Reaction, Severe, bleeding, 01/19/17) Reported Meds & Prescriptions Reported Meds & Active Scripts Active Levaquin (Levofloxacin) 750 Mg Tablet 750 Mg PO Q24H Oxycodone (Oxycodone HCl) 30 Mg Tab 30 Mg PO Q6H PRN Xanax (Alprazolam) 0.5 Mg Tab 0.5 Mg PO Q8H Wheelchair (Device) 1 Mis Mis 1 Ea .ROUTE DIRECTED Reported Novoseven Rt Inj (Factor VIIa (Recombinant)) 1 Mg Inj 10 Mcg IV Q4HR Feiba NF Inj (Antiinhibitor Coagulant Complex Inj) 500 Units Inj 7,500 Units INJ DAILY Review of Systems Except as stated in HPI: all other systems reviewed are Neg General / Constitutional: No: Fever Eyes: No: Visual changes HENT: No: Headaches Cardiovascular: No: Chest Pain or Discomfort Respiratory: No: Shortness of Breath Gastrointestinal: No: Nausea, Vomiting, Abdominal Pain Genitourinary: No: Dysuria Musculoskeletal: Positive: Myalgias, Pain Skin: Positive Other (PICC line malfunction.), No Rash Neurologic: No: Weakness, Focal Abnormalities, Change in Mentation, Slurred Speech, Sensory Disturbance Psychiatric: No: Depression Endocrine: No: Polydipsia Hematologic/Lymphatic: No: Easy Bruising Physical Exam Narrative General: The patient is a well-developed well-nourished male in no acute distress. Head and Neck exam: Head is normocephalic atraumatic. Eyes: EOMI, pupils are equal round and reactive to light. Nose: Midline septum with pink mucous membranes Mouth: Dentition unremarkable. Moist mucus membranes. Posterior oropharynx is not erythematous. No tonsillar hypertrophy. Uvula midline. Airway patent. Neck: No palpable lymphadenopathy. No nuchal rigidity. No thyromegaly. Cardiovascular: Regular rate and rhythm without murmurs, gallops, or rubs. No pulse deficit to the extremities and simultaneous auscultation and palpation of his radial artery. Lungs: Clear to auscultation bilaterally. No wheezes, rhonchi, or rales. Abdomen: Soft, without tenderness to palpation in all 4 quadrants of the abdomen. No guarding, rebound, or rigidity. Normal bowel sounds are audible. No tenderness on palpation of McBurney's point. Negative [place] sign. Extremities: No clubbing, cyanosis, or edema, except an area of interest, the posterior left elbow, where the patient is noted to have some swelling along the bursa. There is no erythema or significant tenderness on palpation. The patient has no loss of range of motion. The other area of interest is the right calf, the patient reports having some swelling that developed in this over the last 24 hours. The patient has soft compartments. 2+ pulses in all 4 extremities. The patient has less than 3 second capillary refill of his extremities. Intact sensation at this toes. Examination of the patient's right upper extremity reveals a PICC line in place. The bandage was removed. The patient's PICC line appears to be in good condition without any surrounding erythema or drainage. An attempt was made by the patient's nurse to flush the line, however resistance was met. This was discontinued. Back: No spinous process tenderness to palpation. No costovertebral angle tenderness to palpation. Neurologic Exam: Grossly nonfocal. Skin Exam: No rash noted. Intact skin that is warm and dry. Data Data Last Documented VS Vital Signs Date Time Temp Pulse Resp B/P Pulse Ox O2 Delivery O2 Flow Rate FiO2 01/19/17 05:38 99 Room Air 01/19/17 04:45 98.0 122 16 142/66 Orders Complete Blood Count With Diff (01/19/17 05:30) Comprehensive Metabolic Panel (01/19/17 05:30) Prothrombin Time / Inr (Pt) (01/19/17 05:30) Act Partial Throm Time (Ptt) (01/19/17 05:30) Chest, Single Ap (01/19/17 05:30) Iv Access Insert/Monitor (01/19/17 05:30) Ecg Monitoring (01/19/17 05:30) Oximetry (01/19/17 05:30) Type And Screen (01/19/17 05:30) Red Blood Cells (Rbc) (01/19/17 06:00) Invasive Rad Dept Consult (01/19/17 ) Potassium Chloride Eff (K-Lyte Cl Eff) (01/19/17 06:45) Blood Culture (01/19/17 06:58) Urinalysis - C+S If Indicated (01/19/17 06:58) Lactic Acid Sepsis Protocol (01/19/17 06:58) Labs Laboratory Tests Test 01/19/17 06:00 White Blood Count 15.7 TH/MM3 Red Blood Count 4.19 MIL/MM3 Hemoglobin 10.6 GM/DL Hematocrit 32.3 % Mean Corpuscular Volume 77.0 FL Mean Corpuscular Hemoglobin 25.2 PG Mean Corpuscular Hemoglobin 32.7 % Concent Red Cell Distribution Width 16.2 % Platelet Count 205 TH/MM3 Mean Platelet Volume 8.0 FL Neutrophils (%) (Auto) 71.4 % Lymphocytes (%) (Auto) 11.5 % Monocytes (%) (Auto) 6.3 % Eosinophils (%) (Auto) 10.2 % Basophils (%) (Auto) 0.6 % Neutrophils # (Auto) 11.2 TH/MM3 Lymphocytes # (Auto) 1.8 TH/MM3 Monocytes # (Auto) 1.0 TH/MM3 Eosinophils # (Auto) 1.6 TH/MM3 Basophils # (Auto) 0.1 TH/MM3 CBC Comment DIFF FINAL Differential Comment Prothrombin Time 13.5 SEC Prothromb Time International 1.2 RATIO Ratio Activated Partial 123.5 SEC Thromboplast Time Sodium Level 137 MEQ/L Potassium Level 2.9 MEQ/L Chloride Level 102 MEQ/L Carbon Dioxide Level 26.1 MEQ/L Anion Gap 9 MEQ/L Blood Urea Nitrogen 12 MG/DL Creatinine 0.57 MG/DL Estimat Glomerular Filtration 174 ML/MIN Rate Random Glucose 148 MG/DL Calcium Level 9.0 MG/DL Total Bilirubin 0.7 MG/DL Aspartate Amino Transf 63 U/L (AST/SGOT) Alanine Aminotransferase 57 U/L (ALT/SGPT) Alkaline Phosphatase 119 U/L Total Protein 6.8 GM/DL Albumin 3.1 GM/DL Blood Type AB POSITIVE Antibody Screen NEGATIVE MDM Medical Decision Making Medical Screen Exam Complete: Yes Emergency Medical Condition: Yes Medical Record Reviewed: Yes Interpretation(s) Last Impressions Chest X-Ray 01/19/17 0530 Signed Impressions: Service Date/Time: Thursday, January 19, 2017 05:43 - CONCLUSION: PICC line catheter tip at the cavoatrial junction. No infiltrate seen. Charli Valerio MD Differential Diagnosis PICC line thrombosis, versus other PICC line dysfunction. Narrative Course During the course of the patients emergency department visit, the patients history, examination, and differential diagnosis were reviewed with the patient. The patient had IV access obtained and blood work sent for analysis. The patient provided his NovoSeven per the recommendations of his oxygen plant operator. An interventional radiology consultation was placed regarding this patient's PICC line malfunction. The patients laboratory studies were reviewed and remarkable for a white count of 15.7, hemoglobin 10.6, platelets 205 with 71.4 neutrophils, 10.2 eosinophils , CMP is remarkable for a potassium of 2.9, creatinine 0.57, AST 63, alkaline phosphatase 119, PT 13.5, INR 1.2, PTT 123.5. Regarding the patient's hypokalemia the patient was given K-Lyte 50 mEq by mouth 1. Radiology studies were reviewed and remarkable for a chest x-ray that shows a PICC line catheter tip at the cavoatrial junction, no infiltrate noted. Given the patient's tachycardia on his initial vital signs, and elevated white blood cell count, a lactic acid was sent, urine was sent for analysis to rule out urinary tract infection, and blood cultures 2 were ordered. The patient was given normal saline IV fluids, a 500 mL bolus 1. The patient's case will be checked out to the oncoming emergency physician to disposition based on the conclusion of the patient's evaluation. Sepsis Criteria SIRS Criteria (2 or more): Heart rate over 90, WBC > 36394, < 4000 or > 10% bands Diagnosis Primary Impression: Occluded PICC line Qualified Code: T82.898A - Occluded PICC line, initial encounter Additional Impressions: Leukocytosis, unspecified Hemophilia A Kelly Leger MD Jan 19, 2017 06:01
[2017-01-19 06:09] LABS: AUTOMATED NEUTROPHIL # 11.2 TH/MM3 (1.8-7.7); BASOPHIL # 0.1 TH/MM3 (0-0.2); BASOPHIL % 0.6 % (0.0-2.0); EOSINOPHIL # 1.6 TH/MM3 (0-0.4); EOSINOPHIL % 10.2 % (0.0-4.0); HEMATOCRIT 32.3 % (39.0-51.0); HEMO FLAGS DIFF FINAL; LYMPH % 11.5 % (9.0-44.0); LYMPHOCYTE # 1.8 TH/MM3 (1.0-4.8); MEAN CORPUSCULAR HEMOGLOBIN 25.2 PG (27.0-34.0); MEAN CORPUSCULAR HGB CONC 32.7 % (32.0-36.0); MONO % 6.3 % (0.0-8.0); NEUT % 71.4 % (16.0-70.0); PLATELET COUNT 205 TH/MM3 (150-450); RED BLOOD COUNT 4.19 MIL/MM3 (4.50-5.90); RED CELL DISTRIBUTION WIDTH 16.2 % (11.6-17.2); WHITE BLOOD COUNT 15.7 TH/MM3 (4.0-11.0)
--- NOTE | 2017-01-19 06:09 | RADRPT ---
EXAM DATE/TIME: 01/19/2017 05:43 [place] COMPARISON: CHEST SINGLE AP, January 01, 2017, 14:54. INDICATIONS : Pt has PICC line for medicating at home- wouldn't flush today. MEDICAL HISTORY : Hemophilia SURGICAL HISTORY : Mediport ENCOUNTER: Initial ACUITY: 1 day PAIN SCORE: 7/10 LOCATION: Bilateral chest FINDINGS: There is a lesser degree of inspiration when compared to the prior exam with associated crowding of t he bronchopulmonary markings. No focal infiltrate seen. Both hemidiaphragms well delineated. PICC line catheter tip projects at the cavoatrial junction. CONCLUSION: PICC line catheter tip at the cavoatrial junction. No infiltrate seen. Charli Valerio MD on January 19, 2017 at 6:04 Board Certified Radiologist. This report was verified electronically.
[2017-01-19 06:43] LABS: ALKALINE PHOSPHATASE 119 U/L (45-117); ALT (GPT) 57 U/L (12-78); ANION GAP 9 MEQ/L (5-15); AST (GOT) 63 U/L (15-37); BICARBONATE 26.1 MEQ/L (21.0-32.0); BLOOD UREA NITROGEN 12 MG/DL (7-18); CHLORIDE 102 MEQ/L (98-107); GLOMERULAR FILTRATION RATE 174 ML/MIN (>89); SODIUM (NA) 137 MEQ/L (136-145); TOTAL BILIRUBIN ADULT 0.7 MG/DL (0.2-1.0)
[2017-01-19 06:44] LABS: APTT (PATIENT) 123.5 SEC (24.3-30.1); POTASSIUM 2.9 MEQ/L (3.5-5.1); PROTHROMBIN TIME - PATIENT 13.5 SEC (9.8-11.6)
[2017-01-19 06:45] LABS: INTERNATIONAL NORMALIZED RATIO 1.2 RATIO
[2017-01-19] MEDS ORDERED: POTASSIUM CHLORIDE 25 MEQ EFFERVESCENT TAB PO ONE (06:45)
[2017-01-19 07:51] LABS: BACTERIA, URINE RARE /hpf; BLOOD, URINE NEG (NEG); COMMENT (UR) CULT NOT INDICATED; CULTURE IF INDICATED CULT NOT INDICATED; GLUCOSE,URINE NEG (NEG); HYALINE CAST, URINE 8 /lpf (RARE); KETONE, URINE NEG (NEG); MUCUS URINE FEW /lpf (OCC); NITRITE,URINE NEG (NEG); URINE COLOR YELLOW (YELLW/STRAW)
[2017-01-19 09:00] VITALS: BP 139/77; PULSE 112; RESP 19; O2SAT 96
[2017-01-19] MEDS ORDERED: ALTEPLASE RECOMBINANT 2 MG VIAL INTRACATH ONE (09:30)
--- NOTE | 2017-01-19 11:34 | PD ---
Data Data Last Documented VS Vital Signs Date Time Temp Pulse Resp B/P Pulse Ox O2 Delivery O2 Flow Rate FiO2 01/19/17 09:00 112 19 139/77 96 Room Air 01/19/17 04:45 98.0 Orders Complete Blood Count With Diff (01/19/17 05:30) Comprehensive Metabolic Panel (01/19/17 05:30) Prothrombin Time / Inr (Pt) (01/19/17 05:30) Act Partial Throm Time (Ptt) (01/19/17 05:30) Chest, Single Ap (01/19/17 05:30) Iv Access Insert/Monitor (01/19/17 05:30) Ecg Monitoring (01/19/17 05:30) Oximetry (01/19/17 05:30) Type And Screen (01/19/17 05:30) Red Blood Cells (Rbc) (01/19/17 06:00) Potassium Chloride Eff (K-Lyte Cl Eff) (01/19/17 06:45) Blood Culture (01/19/17 06:58) Urinalysis - C+S If Indicated (01/19/17 06:58) Lactic Acid Sepsis Protocol (01/19/17 06:58) Vascular Access Team Consult/P PRN (01/19/17 08:03) Vascular Poc Ultrasound (01/19/17 ) Cathflo Activase Inj (Cathflo Activase I (01/19/17 09:30) Labs Laboratory Tests Test 01/19/17 01/19/17 01/19/17 06:00 07:25 07:30 White Blood Count 15.7 TH/MM3 Red Blood Count 4.19 MIL/MM3 Hemoglobin 10.6 GM/DL Hematocrit 32.3 % Mean Corpuscular Volume 77.0 FL Mean Corpuscular Hemoglobin 25.2 PG Mean Corpuscular Hemoglobin 32.7 % Concent Red Cell Distribution Width 16.2 % Platelet Count 205 TH/MM3 Mean Platelet Volume 8.0 FL Neutrophils (%) (Auto) 71.4 % Lymphocytes (%) (Auto) 11.5 % Monocytes (%) (Auto) 6.3 % Eosinophils (%) (Auto) 10.2 % Basophils (%) (Auto) 0.6 % Neutrophils # (Auto) 11.2 TH/MM3 Lymphocytes # (Auto) 1.8 TH/MM3 Monocytes # (Auto) 1.0 TH/MM3 Eosinophils # (Auto) 1.6 TH/MM3 Basophils # (Auto) 0.1 TH/MM3 CBC Comment DIFF FINAL Differential Comment Prothrombin Time 13.5 SEC Prothromb Time International 1.2 RATIO Ratio Activated Partial 123.5 SEC Thromboplast Time Sodium Level 137 MEQ/L Potassium Level 2.9 MEQ/L Chloride Level 102 MEQ/L Carbon Dioxide Level 26.1 MEQ/L Anion Gap 9 MEQ/L Blood Urea Nitrogen 12 MG/DL Creatinine 0.57 MG/DL Estimat Glomerular Filtration 174 ML/MIN Rate Random Glucose 148 MG/DL Calcium Level 9.0 MG/DL Total Bilirubin 0.7 MG/DL Aspartate Amino Transf 63 U/L (AST/SGOT) Alanine Aminotransferase 57 U/L (ALT/SGPT) Alkaline Phosphatase 119 U/L Total Protein 6.8 GM/DL Albumin 3.1 GM/DL Blood Type AB POSITIVE Antibody Screen NEGATIVE Crossmatch Leukocyte-Reduced Red Blood Cells Blood Bank Comment Urine Color YELLOW Urine Turbidity CLEAR Urine pH 6.0 Urine Specific [place] 1.028 Urine Protein 30 mg/dL Urine Glucose (UA) NEG mg/dL Urine Ketones NEG mg/dL Urine Occult Blood NEG Urine Nitrite NEG Urine Bilirubin NEG Urine Urobilinogen 2.0 MG/DL Urine Leukocyte Esterase NEG Urine RBC 3 /hpf Urine WBC 3 /hpf Urine Bacteria RARE /hpf Urine Hyaline Casts 8 /lpf Urine Mucus FEW /lpf Microscopic Urinalysis Comment CULT NOT INDICATED Lactic Acid Level 1.6 mmol/L MDM Supervised Visit with CHUY: No Narrative Course His case is checked out to him by Dr. Leger. This patient came in for a clotted PICC line which he needs to inject his factors for hemophilia A. Patient was evaluated by the vascular access team who recommended 2 cc of alteplase be injected. I discussed that with Dr. Vazquez, hematology on-call, given this patient's hemophilia and giving him a blood thinner. He felt it was safe and the proper thing to do. They injected and shortly thereafter achieved good flow through the PICC line. Now flushes and draws fine. I reviewed the extent of the workup by Dr. Leger. She had added a lactate and urinalysis which were pending and both are normal He should follow-up with his grinder operator automatic Dr. Adam Diagnosis Primary Impression: Occluded PICC line Qualified Code: T82.898A - Occluded PICC line, initial encounter Additional Impressions: Hemophilia A Leukocytosis, unspecified Additional Instruction: Follow-up with primary care and hematology Med/Other Pt SpecificInfo: Other Disposition: 01 DISCHARGE HOME Condition: Stable Everardo Louie MD Jan 19, 2017 11:34
== END 2017-01-19 15:54 | disposition home or self-care (01) ==
LOC: NEPC 04:41
DX: T82.898A Other specified complication of vascular prosthetic devices, implants and grafts, initial encounter (principal); D66 Hereditary factor VIII deficiency; D72.829 Elevated white blood cell count, unspecified; R00.0 Tachycardia, unspecified; F41.9 Anxiety disorder, unspecified; F17.200 Nicotine dependence, unspecified, uncomplicated; Z79.899 Other long term (current) drug therapy
CPT/HCPCS: 71010; 80053; 81001; 83605; 85025; 85610; 85730; 86850; 86900; 86901; 86920; 86922; 87040; 87186; 87205; 99284; J2997

== ENCOUNTER 2017-01-23 21:17 | Inpatient (IN) | payer MEDICARE, OTHER ==
[~2017-01-23] VITALS: Ht 177.8 cm; Wt 84.9 kg
[~2017-01-23 21:17] MED LIST changes: -MORP1TAB26 PO; -NICO4GUM CHEW
[2017-01-23 21:20] VITALS: BP 123/77; PULSE 111; RESP 18; TEMP 98.3; O2SAT 100
[2017-01-23] MEDS ORDERED: CLINDAMYCIN INJ 900 MG in SODIUM CHLORIDE 0.9% INJ 100 ML IV ONE ×2 (21:45→22:15)
--- NOTE | 2017-01-23 21:52 | PD ---
HPI Chief Complaint: Abnormal Results Time Seen by Provider: 21:48 Travel History International Travel<30 days: No Contact w/Intl Traveler<30days: No Traveled to known affect area: No History of Present Illness HPI 26-year-old male that presents to the ED for evaluation of positive blood cultures. Patient was calling today because he was found to have a positive blood culture. Patient has a chronic history of and feeling a. Patient has a PICC line in place on his forearm that is working. Per patient he has been feeling "weird "for the past 2 weeks. Patient was seen here a couple days ago for evaluation of PICC line not working. At the time patient had blood cultures and labs that show slightly elevated bubbles exam otherwise unremarkable. Cultures came back today positive for strep viridens. Patient does have a history of septicemia in the past and actually was admitted less than a month ago for sepsis that grew Shira as well as other bacteria. He denies any fevers chills or sweats. He only describes a sensation of feeling "weird". He is tachycardic however. He does have a history of anxiety. He denies any wounds or bleeding. No other medical issues. PFSH Past Medical History Hx Anticoagulant Therapy: Yes (hemophilia) Arthritis: Yes Blood Disorders: Yes (HEMOPHELIA) Anxiety: Yes Depression: No Cancer: No Cardiovascular Problems: No Chemotherapy: Yes Diminished Hearing: No Endocrine: No Gastrointestinal Disorders: Yes (history of ulcers) Genitourinary: No Immune Disorder: No Implanted Vascular Access Dvce: Yes Musculoskeletal: Yes Neurologic: No Psychiatric: Yes Reproductive: No Respiratory: No Radiation Therapy: No Ulcer: Yes Past Surgical History Body Medical Devices: L-femur plate with 8 scews, right SC port. Other Surgery: Yes (MEDIPORT, I&D LEFT KNEE, plate L femur, radioactive synovectomy R knee, ) Social History Alcohol Use: Yes (RARELY) Tobacco Use: Yes (one pack per day) Substance Use: Yes (cannabis) Allergies-Medications (Allergen,Severity, Reaction): Coded Allergies: Nonsteroidal Anti-Inflammatory Agts (Verified Adverse Reaction, Severe, bleeding, 01/19/17) Reported Meds & Prescriptions Reported Meds & Active Scripts Active Levaquin (Levofloxacin) 750 Mg Tablet 750 Mg PO Q24H Oxycodone (Oxycodone HCl) 30 Mg Tab 30 Mg PO Q6H PRN Xanax (Alprazolam) 0.5 Mg Tab 0.5 Mg PO Q8H Wheelchair (Device) 1 Mis Mis 1 Ea .ROUTE DIRECTED Reported Novoseven Rt Inj (Factor VIIa (Recombinant)) 1 Mg Inj 10 Mcg IV Q4HR Feiba NF Inj (Antiinhibitor Coagulant Complex Inj) 500 Units Inj 7,500 Units INJ DAILY Review of Systems Except as stated in HPI: all other systems reviewed are Neg Physical Exam Narrative GENERAL: SKIN: Warm and dry. HEAD: Atraumatic. Normocephalic. EYES: Pupils equal and round. No scleral icterus. No injection or drainage. ENT: No nasal bleeding or discharge. Mucous membranes pink and moist. Tongue is midline. No uvula deviation. NECK: Trachea midline. No JVD. CARDIOVASCULAR: Regular rate and rhythm. No murmurs, S3, S4. RESPIRATORY: No accessory muscle use. Clear to auscultation. Breath sounds equal bilaterally. GASTROINTESTINAL: Abdomen soft, non-tender, nondistended. Hepatic and splenic margins not palpable. MUSCULOSKELETAL: Extremities without clubbing, cyanosis, or edema. No obvious deformities. Full range of motion of the upper and lower extremities bilaterally. 2+ pulses bilaterally. PICC line appears to be intact. NEUROLOGICAL: Awake and alert. No obvious cranial nerve deficits. Motor grossly within normal limits. Five out of 5 muscle strength in the arms and legs. Normal speech. PSYCHIATRIC: Appropriate mood and affect; insight and judgment normal. Data Data Last Documented VS Vital Signs Date Time Temp Pulse Resp B/P Pulse Ox O2 Delivery O2 Flow Rate FiO2 01/23/17 21:47 18 100 Room Air 01/23/17 21:20 98.3 111 123/77 Orders Complete Blood Count With Diff (01/23/17 21:23) Basic Metabolic Panel (Bmp) (01/23/17 21:23) Blood Culture (01/23/17 21:23) Urinalysis - C+S If Indicated (01/23/17 21:23) Magnesium (Mg) (01/23/17 21:23) Lactic Acid Sepsis Protocol (01/23/17 21:25) Clindamycin Inj (Cleocin Inj) (01/23/17 21:45) Hydromorphone Pf Inj (Dilaudid Pf Inj) (01/23/17 22:00) Ondansetron Inj (Zofran Inj) (01/23/17 22:00) Clindamycin Inj (Cleocin Inj) (01/23/17 22:15) Labs Laboratory Tests Test 01/23/17 01/23/17 21:30 21:35 Lactic Acid Level 1.4 mmol/L White Blood Count 15.9 TH/MM3 Red Blood Count 4.44 MIL/MM3 Hemoglobin 11.1 GM/DL Hematocrit 34.1 % Mean Corpuscular Volume 76.8 FL Mean Corpuscular Hemoglobin 24.9 PG Mean Corpuscular Hemoglobin 32.4 % Concent Red Cell Distribution Width 17.7 % Platelet Count 369 TH/MM3 Mean Platelet Volume 8.1 FL Neutrophils (%) (Auto) 79.8 % Lymphocytes (%) (Auto) 15.0 % Monocytes (%) (Auto) 4.1 % Eosinophils (%) (Auto) 0.3 % Basophils (%) (Auto) 0.8 % Neutrophils # (Auto) 12.7 TH/MM3 Lymphocytes # (Auto) 2.4 TH/MM3 Monocytes # (Auto) 0.7 TH/MM3 Eosinophils # (Auto) 0.1 TH/MM3 Basophils # (Auto) 0.1 TH/MM3 CBC Comment DIFF FINAL Differential Comment Sodium Level 141 MEQ/L Potassium Level 2.9 MEQ/L Chloride Level 106 MEQ/L Carbon Dioxide Level 26.5 MEQ/L Anion Gap 9 MEQ/L Blood Urea Nitrogen 4 MG/DL Creatinine 0.41 MG/DL Estimat Glomerular Filtration 255 ML/MIN Rate Random Glucose 122 MG/DL Calcium Level 8.7 MG/DL Magnesium Level 2.2 MG/DL MDM Medical Decision Making Medical Screen Exam Complete: Yes Emergency Medical Condition: Yes Medical Record Reviewed: Yes Interpretation(s) CBC & BMP Diagram 01/23/17 21:35 Lactic acid WNL Differential Diagnosis Septicemia versus bacteremia versus infection versus sepsis Narrative Course 26-year-old male that presents to the ED for evaluation of abnormal results. Patient was properly examined and was found to have no signs of acute medical distress. He is however tachycardic. He does have a unfortunately chronic history of hemophilia A and has had infections from sepsis secondary to infections from the line that he's had. The line itself appears to be intact. Labs and imaging showed leukocytosis. Left leg concern for bacteremia. Patient did have possible cultures. Recommendation for admission. Case was consulted with my attending Dr. Fields evaluated the patient with me and agrees with this plan. Patient was told this and agrees with plan. Patient will be started on IV clindamycin. Spoke with Dr. Noguera over the phone who agrees to admission. Diagnosis Primary Impression: Bacteremia Additional Impression: Leukocytosis, unspecified Admitting Information Admitting Physician Requests: Admit Bry Ramos Jan 23, 2017 21:52
[2017-01-23 21:54] LABS: AUTOMATED NEUTROPHIL # 12.7 TH/MM3 (1.8-7.7); BASOPHIL # 0.1 TH/MM3 (0-0.2); BASOPHIL % 0.8 % (0.0-2.0); EOSINOPHIL # 0.1 TH/MM3 (0-0.4); EOSINOPHIL % 0.3 % (0.0-4.0); HEMATOCRIT 34.1 % (39.0-51.0); HEMO FLAGS DIFF FINAL; LYMPHOCYTE # 2.4 TH/MM3 (1.0-4.8); MEAN CELL VOLUME 76.8 FL (80.0-100.0); MEAN CORPUSCULAR HEMOGLOBIN 24.9 PG (27.0-34.0); MEAN CORPUSCULAR HGB CONC 32.4 % (32.0-36.0); MONO % 4.1 % (0.0-8.0); NEUT % 79.8 % (16.0-70.0); PLATELET COUNT 369 TH/MM3 (150-450); RED BLOOD COUNT 4.44 MIL/MM3 (4.50-5.90); RED CELL DISTRIBUTION WIDTH 17.7 % (11.6-17.2); WHITE BLOOD COUNT 15.9 TH/MM3 (4.0-11.0)
[2017-01-23] MEDS ORDERED: HYDROmorphone HCL PF 1 MG/ML VIAL IV PUSH ONE (22:00)
[2017-01-23] MEDS ORDERED: ONDANSETRON HCL 4 MG/2 ML VIAL IV PUSH ONE (22:00)
[2017-01-23 22:19] LABS: BICARBONATE 26.5 MEQ/L (21.0-32.0); MAGNESIUM 2.2 MG/DL (1.5-2.5)
[2017-01-23 22:23] LABS: POTASSIUM 2.9 MEQ/L (3.5-5.1)
--- NOTE | 2017-01-24 00:21 | HHI.HP ---
HPI Service [facility]ists Primary Care Physician Leno Adam MD Admission Diagnosis bacteremia, leukocytosis Diagnoses: Chief Complaint: Chills, left knee pain Travel History International Travel<30 Days: No Contact w/Intl Traveler <30 Da: No Traveled to Known Affected Are: No History of Present Illness This is a 26-year-old male very well-known to our practice who presents to [facility] complaining of chills and left knee pain. 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 The patient states that symptoms started a couple days ago. The patient came to the ER for this ago on 01/19/17 and blood cultures were obtained which came back positive for Streptococcus Viridans. The patient was then called back to present to the hospital for admission. The patient complains of chills and feeling very cold, states has not had fevers but does not feel well. The patient also complains of increased left knee pain for the past couple days and pain in the right calf associated with small ecchymotic region. Past Family Social History Past Medical History Hemophilia A Degenerative bone and joint disease Septic arthritis Chronic pain Anxiety disorder Past Surgical History Divskb-b-Xozz placement History compartment syndrome History of ORIF of left femoral neck fracture History of left knee surgery-radioactive synovectomy right knee Incision and drainage to the left knee For serum into the right arm Reported Medications Levaquin (Levofloxacin) 750 Mg Tablet 750 Mg PO Q24H Oxycodone (Oxycodone HCl) 30 Mg Tab 30 Mg PO Q6H PRN Xanax (Alprazolam) 0.5 Mg Tab 0.5 Mg PO Q8H Wheelchair (Device) 1 Mis Mis 1 Ea .ROUTE DIRECTED Novoseven Rt Inj (Factor VIIa (Recombinant)) 1 Mg Inj 10 Mcg IV Q4HR Feiba NF Inj (Antiinhibitor Coagulant Complex Inj) 500 Units Inj 7,500 Units INJ DAILY Allergies: Coded Allergies: Nonsteroidal Anti-Inflammatory Agts (Verified Adverse Reaction, Severe, bleeding, 01/19/17) Active Ordered Medications Current Medications Medications (Trade) Dose Ordered Sig/Mike Route Start Time Stop Time Status Last Admin (NS Flush) 2 ml UNSCH PRN IV FLUSH 01/24/17 00:30 (NS Flush) 2 ml BID IV FLUSH 01/24/17 09:00 (Tylenol) 650 mg Q4H PRN PO 01/24/17 00:30 (Zofran Inj) 4 mg Q6H PRN IVP 01/24/17 00:30 (Kelli-Colace) 1 tab BID PO 01/24/17 09:00 (Milk Of Magnesia Liq) 30 ml Q12H PRN PO 01/24/17 00:30 (Senokot) 17.2 mg Q12H PRN PO 01/24/17 00:30 (Dulcolax Supp) 10 mg DAILY PRN RECTAL 01/24/17 00:30 Lactulose 30 ml 30 ml DAILY PRN PO 01/24/17 00:30 (Rocephin Inj/NS Inj) 100 ml @ 200 mls/hr DAILY@00 IV 01/24/17 00:30 01/24/17 01:56 (Xanax) 0.5 mg Q8HR PO 01/24/17 06:00 (Roxicodone) 30 mg Q6H PRN PO 01/24/17 00:45 01/24/17 02:18 Morphine Sulfate 60 mg 60 mg Q12HR PO 01/24/17 00:45 01/24/17 01:57 (KCl 20 Meq Premix Inj) 100 ml @ 50 mls/hr Q2H IV 01/24/17 00:45 01/24/17 04:44 01/24/17 02:19 Family History His family history of thrombophilia A. 4 out of 6 brothers Grandfather from colon cancer Social History The patient smokes one pack per day Patient denies alcohol intake Patient denies illegal drug use. The patient is single and does not have children. Physical Exam Vital Signs Vital Signs Date Time Temp Pulse Resp B/P Pulse Ox O2 Delivery O2 Flow Rate FiO2 01/23/17 21:47 18 100 Room Air 01/23/17 21:20 98.3 111 18 123/77 100 Physical Exam GENERAL: This is a well-nourished, well-developed patient, in moderate pain distress. SKIN: No rashes, ecchymoses or lesions. Cool and dry. HEAD: Atraumatic. Normocephalic. No temporal or scalp tenderness. EYES: Pupils equal round and reactive. Extraocular motions intact. No scleral icterus. No injection or drainage. ENT: Nose without bleeding, purulent drainage or septal hematoma. Throat without erythema, tonsillar hypertrophy or exudate. Uvula midline. Airway patent. NECK: Trachea midline. No JVD or lymphadenopathy. Supple, nontender, no meningeal signs. CARDIOVASCULAR: Regular rate and rhythm without murmurs, gallops, or rubs. RESPIRATORY: Clear to auscultation. Breath sounds equal bilaterally. No wheezes , rales, or rhonchi. GASTROINTESTINAL: Abdomen soft, non-tender, nondistended. No hepato-splenomegaly , or palpable masses. No guarding. MUSCULOSKELETAL: Left knee swollen and tender to palpation, not warm. There is small ecchymotic region on the inner side of the left knee. There is swelling of the right calf with small ecchymotic region. Pulses are palpable in bilateral lower extremities, including pedal and posterior tibial. NEUROLOGICAL: Awake and alert. Cranial nerves II through XII intact. Motor and sensory grossly within normal limits. Five out of 5 muscle strength in all muscle groups. Normal speech. Laboratory Laboratory Tests Test 01/23/17 01/23/17 21:30 21:35 Lactic Acid Level 1.4 White Blood Count 15.9 Red Blood Count 4.44 Hemoglobin 11.1 Hematocrit 34.1 Mean Corpuscular Volume 76.8 Mean Corpuscular Hemoglobin 24.9 Mean Corpuscular Hemoglobin 32.4 Concent Red Cell Distribution Width 17.7 Platelet Count 369 Mean Platelet Volume 8.1 Neutrophils (%) (Auto) 79.8 Lymphocytes (%) (Auto) 15.0 Monocytes (%) (Auto) 4.1 Eosinophils (%) (Auto) 0.3 Basophils (%) (Auto) 0.8 Neutrophils # (Auto) 12.7 Lymphocytes # (Auto) 2.4 Monocytes # (Auto) 0.7 Eosinophils # (Auto) 0.1 Basophils # (Auto) 0.1 CBC Comment DIFF FINAL Differential Comment Sodium Level 141 Potassium Level 2.9 Chloride Level 106 Carbon Dioxide Level 26.5 Anion Gap 9 Blood Urea Nitrogen 4 Creatinine 0.41 Estimat Glomerular Filtration 255 Rate Random Glucose 122 Calcium Level 8.7 Magnesium Level 2.2 Date/Time Procedure Status Source Growth 01/23/17 21:40 Aerobic Blood Culture Received Blood Peripheral Pending 01/23/17 21:40 Anaerobic Blood Culture Received Blood Peripheral Pending Result Diagram: 01/23/17213401/23/172134 Septic Shock Reassessment Heart: Regular rate and rhythm Lungs: Clear Skin: Warm Peripheral Pulses: Bounding Right Radial Bounding Left Radial Capillary Refill: <2 seconds Assessment and Plan Problem List: (1) Sepsis ICD Code: A41.9 Status: Resolved Plan: Sepsis likely secondary to PICC line infection. Urinalysis negative, chest is clear on exam. Admit to the medical floor, continue IV fluids and IV antibiotics. The patient was given IV clindamycin in the emergency department, I will place on IV Rocephin Consult infectious disease Blood cultures obtained on are growing streptococcus viridans and pleomorphic gram-positive rods. Follow-up repeated blood cultures in emergency department. Will remove PICC line. (2) Bacteremia ICD Code: R78.81 Status: Acute Plan: As above (3) Left knee pain ICD Code: M25.562 Status: Acute Plan: Likely secondary to hemarthrosis. Continue pain control and consult hematology. Will provide pain control with the patient's home dose of morphine extended release and Roxicodone for pain. Will place on IV morphine for breakthrough pain. (4) Leukocytosis ICD Code: D72.829 Status: Acute Plan: Likely secondary to sepsis, most likely due to line infection Continue to monitor CBC with differential (5) Hypokalemia ICD Code: E87.6 Status: Acute Plan: Replace potassium IV and orally and continue to monitor BMP. Continue to replace as needed. (6) Hemarthrosis ICD Code: M25.00 Status: Acute Plan: As above. Consult hematology. (7) Right calf pain ICD Code: M79.661 Status: Acute Plan: Will check a venous Doppler of the right lower extremity. Suspicious for bleeding. Will hold SCDs from the right lower extremity. Assessment and Plan GI prophylaxis: Place on PPI. 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 Code Status Full code Discussed Condition With ED physician, patient. Physician Certification 2 Midnight Certification Type: Admission for Inpatient Services Order for Inpatient Services The services are ordered in accordance with Medicare regulations or non- Medicare payer requirements, as applicable. In the case of services not specified as inpatient-only, they are appropriately provided as inpatient services in accordance with the 2-midnight benchmark. Estimated LOS (days): 2 days is the estimated time the patient will need to remain in the hospital, assuming treatment plan goals are met and no additional complications. Post-Hospital Plan: Not yet determined Problem Qualifiers (1) Sepsis: Qualified Code: A41.9 - Sepsis, due to unspecified organism (2) Left knee pain: Qualified Code: M25.562 - Acute pain of left knee (3) Leukocytosis: Qualified Code: D72.829 - Leukocytosis, unspecified type Ritesh Mclaughlin MD Jan 24, 2017 00:21
[2017-01-24] MEDS ORDERED: SENNOSIDES 8.6 MG TAB PO PRN (00:30)
[2017-01-24] MEDS ORDERED: ACETAMINOPHEN 325 MG TAB PO PRN (00:30)
[2017-01-24] MEDS ORDERED: cefTRIAXone INJ 2,000 MG in SODIUM CHLORIDE 0.9% INJ 100 ML IV SCH (00:30)
[2017-01-24] MEDS ORDERED: HYDROmorphone HCL PF 1 MG/ML VIAL IV PUSH ONE ×2 (00:30→20:00)
[2017-01-24] MEDS ORDERED: MAGNESIUM HYDROXIDE SUSP 30 ML CUP PO PRN (00:30)
[2017-01-24] MEDS ORDERED: LACTULOSE SYRUP 20 GM/30 ML CUP PO PRN (00:30)
[2017-01-24] MEDS ORDERED: SODIUM CHLORIDE 0.9% FLUSH 10 ML FLUSH IV FLUSH PRN (00:30)
[2017-01-24] MEDS ORDERED: BISACODYL 10 MG SUPP RECTAL PRN (00:30)
[2017-01-24] MEDS ORDERED: POTASSIUM CHLORIDE 10 MEQ CONTROLLED RELEASE TAB PO ONE (00:45)
[2017-01-24] MEDS: MORPHINE SULFATE 60 MG CONTROLLED RELEASE TAB PO SCH ×3 (01:57→21:08)
[2017-01-24] MEDS: POTASSIUM CHLOR 20 MEQ PREMIX 100 ML IV SCH ×2 (02:19→04:23)
[2017-01-24 03:09] VITALS: BP 108/72; PULSE 93; RESP 20; TEMP 98.4; O2SAT 97
[2017-01-24] MEDS: ALPRAZolam 0.5 MG TAB PO SCH ×3 (05:27→20:43)
[2017-01-24 05:30] VITALS: BP 137/63; PULSE 91; RESP 18; TEMP 97.5; O2SAT 96
[2017-01-24] MEDS ORDERED: MORPHINE SULFATE 4 MG/ML INJ IV PUSH PRN (06:00)
[2017-01-24 08:00] VITALS: BP 109/68; PULSE 86; RESP 18; TEMP 97.8; O2SAT 99
[2017-01-24] MEDS: SODIUM CHLORIDE 0.9% FLUSH 10 ML FLUSH IV FLUSH SCH ×2 (08:55→21:00)
[2017-01-24] MEDS: DOCUSATE SODIUM 50 MG/SENNA 8.6 MG TAB PO SCH ×2 (08:55→20:42)
[2017-01-24] MEDS ORDERED: PATIENT OWN MEDICATION IV PUSH SCH (10:45)
[2017-01-24] MEDS ORDERED: HYDROmorphone HCL PF 1 MG/ML VIAL IV PUSH PRN (10:45)
--- NOTE | 2017-01-24 11:35 | RADRPT ---
EXAM DATE/TIME: 01/24/2017 11:08 [place] COMPARISON: CT KNEE LEFT W/O CONTRAST, December 10, 2016, 19:09. INDICATIONS : Left knee pain. RADIATION DOSE: 6.26 CTDIvol (mGy) MEDICAL HISTORY : None SURGICAL HISTORY : Left femur. ENCOUNTER: Initial ACUITY: 1 day PAIN SCALE: 6/10 LOCATION: Left knee TECHNIQUE: Volumetric scanning of the knee was performed. Using automated exposure control and adjustment of th e mA and/or kV according to patient size, radiation dose was kept as low as reasonably achievable to obtain optimal diagnostic quality images. DICOM format image data is available electronically for re view and comparison. FINDINGS: There is lateral plate and screw fixation of the distal femur again noted. No acute fractures are see n. There is severe osteoarthritis of the knee with joint space narrowing of the medial and lateral ti biofemoral compartments, subchondral cystic changes and patchy sclerosis and marginal osteophytosis a gain noted. A moderate effusion is noted there this is not significantly changed from previous study. CONCLUSION: Stable examination with osteoarthritis, postsurgical changes and effusion. Irwin Prieto MD on January 24, 2017 at 11:31 Board Certified Radiologist. This report was verified electronically.
[2017-01-24 12:00] VITALS: BP 106/70; PULSE 92; RESP 20; TEMP 97.6; O2SAT 96
[2017-01-24] MEDS ORDERED: ANTI-INHIBITOR COAGULANT COMPLEX 100 UNIT INJ IV SCH (12:00)
[2017-01-24] MEDS ORDERED: [UNRECOGNIZED DRUG - OTHER] IV SCH (12:00)
--- NOTE | 2017-01-24 12:54 | MB ---
cc: CHINA LOVE M.D., BOON Y. M.D. DATE OF CONSULTATION: 01/24/[address] Love REASON FOR CONSULTATION Hematology was consulted to render an opinion regarding a patient with hemophilia A admitted with sepsis and hemarthrosis. HISTORY OF PRESENT ILLNESS The patient is a 26-year-old male with a history of hemophilia A and recurrent hemarthrosis admitted to the hospital for bacteremia. He has had frequent admissions over the last few months. He was admitted in November, he had an infected port which was removed and a PICC line was placed. He stated after he was discharged from the hospital he has not been feeling well. He has had chills and shakes, he felt like he had a fever but never took his temperature. He came to the emergency room on January 19 and a set of blood cultures were drawn from the PICC line which grew out Viridans strep as well as gram-positive siomara. He was called to come back in the hospital and subsequently admitted. He stated about kmm-lxf-f-half days ago he started having pain in the right calf which he attributed to bleeding. Yesterday morning he started having pain in the left knee again which is his usual pain when he has hemarthrosis. When he presented to the hospital on January 19 hemoglobin was 10.6, yesterday's hemoglobin was 11.1. He usually is giving himself Feiba 7500 International Units in the morning and NovoSeven 10 mg in the evening. When he has evidence of bleeding he will increase the Feiba to q.8 hours and NovoSeven to q.4 hours. He started the increased dose of Feiba yesterday and received three doses. He started the NovoSeven last night and has so far received four doses, the last dose was around 6:30 this morning. He is complaining of left knee pain. He denies any headache. Denies any visual changes. Denies chest pain. Denies shortness of breath or cough. Denies any nausea, vomiting or abdominal pain. Denies any melena or hematochezia. PAST MEDICAL HISTORY 1. Hemophilia A. 2. Recurrent hemarthrosis. 3. Degenerative joint disease. 4. Septic arteritis. 5. Chronic pain. 6. Anxiety. 7. Tobacco dependence. 8. Infected port. PAST SURGICAL HISTORY 1. Port placement and removal. 2. Tooth extraction. 3. ORIF of left femur neck fracture. 4. Left knee incision and drainage. 5. Compartment syndrome of upper extremities requiring fasciotomy. FAMILY HISTORY brother has hemophilia A. SOCIAL HISTORY Smokes a pack a day. Denies alcohol use. ALLERGIES NONSTEROIDAL INFLAMMATORY AGENTS. CURRENT MEDICATIONS 1. NovoSeven. 2. Feiba. 3. Kelli-Colace. 4. Xanax. 5. Oxycodone. 6. Morphine Extended Release. 7. Ceftriaxone. REVIEW OF SYSTEMS CONSTITUTIONAL: As above. EYES: Denies any blurry vision or double vision. ENT: No mouth sores or voice changes. CARDIOVASCULAR: No chest pressure or palpitations. RESPIRATORY: Denies any shortness of breath or cough. GI: Denies any nausea, vomiting, diarrhea or abdominal pain. : Denies any dysuria or hematuria. MUSCULOSKELETAL: As above. HEMATOLOGIC: As above. ENDOCRINE: Negative. DERMATOLOGIC: Negative. PSYCHIATRIC: Negative. NEUROLOGIC: Negative. PHYSICAL EXAMINATION VITAL SIGNS: Temperature 97.8, blood pressure 109/68, O2 saturation 99% on room air. GENERAL: He was sleeping when I went in the room, easily arousable. He is alert and oriented x3. He is complaining of pain in the left knee. HEENT: Atraumatic, normocephalic. Pupils equal, round and reactive light. Extraocular muscles intact. No scleral icterus. Oropharynx - dry mucosa, no lesion, no thrush, no mucositis. NECK: No thyromegaly. No palpable mass. LYMPHATICS: No palpable cervical, clavicular, axillary or inguinal lymph nodes. CARDIOVASCULAR: Regular S1 and S2. No murmur. LUNGS: Clear to auscultation bilaterally. No wheezing or rhonchi. ABDOMEN: Soft, nontender. I could not palpate the liver or spleen. EXTREMITIES: The left knee is swollen but no increased warmth, I do not see ecchymosis. No calf tenderness. There is a small ecchymosis on the right calf. SKIN: As above. NEUROLOGIC: Nonfocal. LABORATORY DATA Reviewed. ASSESSMENT 1. Severe hemophilia A with factor VIII around 1%. He also has a history of high circulating inhibitor titers. His titer was more than 12 [place] unit when it was checked in October, a repeat test in November did not show a significant inhibitor. The patient has a history of recurrent hemarthrosis. He is on maintenance Feiba 7500 International Units daily in the morning and NovoSeven 10 mg in the evening. When he has a sign of bleeding he will self-increase Feiba to q.8 hours for one day alternating with NovoSeven 10 mg q.4 hours the next day. He started noticing pain in the right calf again about sqf-fid-h-half days ago. Yesterday morning he started having pain in the left knee which is his usual pain when he has hemarthrosis. On the exam his left knee is swollen. This is the first time I see him and I am not sure if it is any different from his baseline. The patient stated that it is more swollen and he already self-increased the factor yesterday. He increased the Feiba to q.8 hours yesterday. Last night he started NovoSeven q.4 hours, he administered the last dose around 6:30 this morning. He is still complaining of significant pain and wanting more pain medication. I am going to continue him on NovoSeven 10 mg q.4 hours for today. We will get a CT of the left knee to see if he has any significant bleed. His hemoglobin was stable the last few days. The primary team also has ordered an ultrasound of the right calf, but I do not appreciate significant bleed in the right calf on exam. His calf is quite soft and no significant tenderness. If CT does not show a significant bleed in the left knee then we could decrease his factor replacement schedule. 2. Acute on chronic pain. He has chronic pain and on morphine extended release as well as oxycodone. We will add Dilaudid IV p.r.n. for breakthrough pain. 3. Tobacco dependence. The patient asked for nicotine gum. 4. Bacteremia, likely due to a line infection. A blood culture from January 19 grew pleomorphic gram-positive rods as well as Viridans strep. Repeat blood culture yesterday showed gram-negative rods. He has no documented fever, he has subjective chills. He was started on ceftriaxone and ID has been consulted. I think the PICC line will likely need to be replaced. 5. Degenerative joint disease. 6. Anxiety, on alprazolam. PLAN 1. Continue NovoSeven 10 mg q.4 hours for now. If he has significant bleed, we will also start him on Feiba tomorrow and alternating with NovoSeven. 2. We will get a CT of the left knee, he is awaiting an ultrasound of the right calf. 3. Add Dilaudid IV for breakthrough pain. 4. Monitor CBC. 5. Await ID evaluation. Thank you Dr. Love for asking me to see this patient. MD AMEE Serrano/STEVEN /10:47 AM /11:47 AM NISHA
--- NOTE | 2017-01-24 14:02 | PD.ID.CON ---
History of Present Illness Service ID Consult Requested By Reason for Consult Evaluation and Mment of E.coli bacteremia ? ESBL likely PICC line related. Primary Care Physician Leno Adam MD Diagnoses: History of Present Illness is a 26 y/o CM with past medical history of hemophilia requiring factor as well as blood transfusions. He has been on factor replacement therapy for many years using a port area and upon review of medical records it appears that he's had several Qlqcpm-o-Rexy infections and has had 2 ports removed because of infections most notably the one in November 2016 as well. During that admission patient had multiple organisms growing from his blood cultures suspicious of tampering of his lines. During his last admission he was also suspected to have multiple joints with septic arthritis although this could not be confirmed due to his hemarthrosis and ongoing factor deficiency issues. Patient was empirically treated for those multiple organisms including Achromobacter and Stenotrophomonas with IV antibiotics while in the hospital and subsequently discharged on oral Levaquin with a stop date of February 02, 2017. Patient also grew Shira glabrata and receive micafungin IV while in the hospital. Upon discharge patient needed a PICC line placement for his factor infusions from a hematological standpoint. It appears that patient was in the emergency room on January 19 for what appears to be occluded PICC line. Blood cultures drawn at that time were positive for strep viridans. The patient was then called back to present to the hospital for admission. The patient complains of chills and feeling very cold, states has not had fevers but does not feel well. The patient also complains of increased left knee pain for the past couple days and pain in the right calf associated with small ecchymotic region. On admission patient had leucocytosis and tachycardia mild with positive blood cultures on 01/19/17 (strep viridans) and 01/23/17 (E.coli ? ESBL). Blood cultures drawn on admission on January 23 are positive for Escherichia coli with CTX M marker positive suspicious for ESBL. ID is consulted for evaluation and Mment of E.coli bacteremia likely PICC line related. Review of Systems Constitutional: COMPLAINS OF: Diaphoretic episodes, Fever, Chills, DENIES: Fatigue, Weight gain, Weight loss, Dizziness, Change in appetite, Night Sweats Eyes: DENIES: Blurred vision, Diplopia, Eye inflammation, Eye pain, Vision loss , Photosensitivity, Double Vision Ears, nose, mouth, throat: DENIES: Tinnitus, Hearing loss, Vertigo, Nasal discharge, Oral lesions, Throat pain, Hoarseness, Ear Pain, Running Nose, Epistaxis, Sinus Pain, Toothache, Odynophagia Respiratory: DENIES: Apneas, Cough, Snoring, Wheezing, Hemoptysis, Sputum production, Shortness of breath Cardiovascular: DENIES: Chest pain, Palpitations, Syncope, Dyspnea on Exertion , PND, Lower Extremity Edema, Orthopnea, Claudication Gastrointestinal: DENIES: Abdominal pain, Black stools, Bloody stools, Constipation, Diarrhea, Nausea, Vomiting, Difficulty Swallowing, Anorexia Genitourinary: DENIES: Sexual dysfunction, Urinary frequency, Urinary incontinence, Urgency, Hematuria, Dysuria, Nocturia, Penile Discharge, Testicular Pain, Testicular Swelling Musculoskeletal: COMPLAINS OF: Joint pain, Joint Swelling, DENIES: Muscle aches, Stiffness, Back pain, Neck pain Integumentary: DENIES: Abnormal pigmentation, Nail changes, Pruritus, Rash Hematologic/lymphatic: DENIES: Bruising, Lymphadenopathy Immunologic/allergic: DENIES: Eczema, Urticaria Neurologic: DENIES: Abnormal gait, Headache, Localized weakness, Paresthesias, Seizures, Speech Problems, Tremor, Poor Balance Psychiatric: DENIES: Anxiety, Confusion, Mood changes, Depression, Hallucinations, Agitation, Suicidal Ideation, Homicidal Ideation, Delusions Except as stated in HPI: all other systems reviewed are Neg Past Family Social History Allergies: Coded Allergies: Nonsteroidal Anti-Inflammatory Agts (Verified Adverse Reaction, Severe, bleeding, 01/19/17) Past Medical History Severe hemophilia Chronic pain Anxiety disorder Problem with recurrent hemarthrosis Previous port infection, and removal Past Surgical History Elksgu-w-Ujjz placement x 2, last one place about 1 year ago Infusaport removed in November admission and had a PICC line placed for factor infusions. History compartment syndrome History of ORIF of left femoral neck fracture History of left knee surgery for infected knee Reported Medications Reported Meds & Active Scripts Active Levaquin (Levofloxacin) 750 Mg Tablet 750 Mg PO Q24H Oxycodone (Oxycodone HCl) 30 Mg Tab 30 Mg PO Q6H PRN Xanax (Alprazolam) 0.5 Mg Tab 0.5 Mg PO Q8H Wheelchair (Device) 1 Mis Mis 1 Ea .ROUTE DIRECTED Reported Novoseven Rt Inj (Factor VIIa (Recombinant)) 1 Mg Inj 10 Mcg IV Q4HR Feiba NF Inj (Antiinhibitor Coagulant Complex Inj) 500 Units Inj 7,500 Units INJ DAILY Active Ordered Medications Current Medications Medications (Trade) Dose Ordered Sig/Mike Route Start Time Stop Time Status Last Admin (NS Flush) 2 ml UNSCH PRN IV FLUSH 01/24/17 00:30 (NS Flush) 2 ml BID IV FLUSH 01/24/17 09:00 01/24/17 08:55 (Tylenol) 650 mg Q4H PRN PO 01/24/17 00:30 (Zofran Inj) 4 mg Q6H PRN IVP 01/24/17 00:30 (Kelli-Colace) 1 tab BID PO 01/24/17 09:00 (Milk Of Magnesia Liq) 30 ml Q12H PRN PO 01/24/17 00:30 (Senokot) 17.2 mg Q12H PRN PO 01/24/17 00:30 (Dulcolax Supp) 10 mg DAILY PRN RECTAL 01/24/17 00:30 Lactulose 30 ml 30 ml DAILY PRN PO 01/24/17 00:30 (Rocephin Inj/NS Inj) 100 ml @ 200 mls/hr DAILY@00 IV 01/24/17 00:30 01/24/17 01:56 (Xanax) 0.5 mg Q8HR PO 01/24/17 06:00 01/24/17 13:32 (Roxicodone) 30 mg Q6H PRN PO 01/24/17 00:45 01/24/17 13:32 (Oramorph Sr) 60 mg Q12HR PO 01/24/17 00:45 01/24/17 08:55 (Morphine Inj) 4 mg Q3H PRN IV PUSH 01/24/17 06:00 01/24/17 06:22 Patient Own Medication Andi Seven 10mg IV q4ho... Q4HR IV PUSH 01/24/17 10:45 UNV (Dilaudid Pf Inj) 1 mg Q6HR PRN IV PUSH 01/24/17 10:45 01/24/17 10:52 (Nicotine Gum) 4 mg Q1H PRN CHEW 01/24/17 10:45 Family History reviewed Social History Smokes one pack per day cigarettes Denies alcohol abuse Denies illicit drug use Physical Exam Vital Signs Vital Signs Date Time Temp Pulse Resp B/P Pulse Ox O2 Delivery O2 Flow Rate FiO2 01/24/17 12:00 97.6 92 20 106/70 96 01/24/17 08:00 97.8 86 18 109/68 99 01/24/17 05:30 97.5 91 18 137/63 96 01/24/17 03:09 98.4 93 20 108/72 97 01/23/17 21:47 18 100 Room Air 01/23/17 21:20 98.3 111 18 123/77 100 Physical Exam GENERAL: This is a well-nourished, well-developed patient, in no apparent distress. SKIN: No rashes, ecchymoses or lesions. Cool and dry. HEAD: Atraumatic. Normocephalic. No temporal or scalp tenderness. EYES: Pupils equal round and reactive. Extraocular motions intact. No scleral icterus. No injection or drainage. ENT: Nose without bleeding, purulent drainage or septal hematoma. Throat without erythema, tonsillar hypertrophy or exudate. Uvula midline. Airway patent. NECK: Trachea midline. Supple, nontender, no meningeal signs. CARDIOVASCULAR: RRR RESPIRATORY: Clear to auscultation. Breath sounds equal bilaterally. No wheezes , rales, or rhonchi. GASTROINTESTINAL: Abdomen soft, non-tender, nondistended. MUSCULOSKELETAL: Extremities without clubbing, cyanosis, or edema. Left elbow with some swelling but no joints with acute signs of infection. NEUROLOGICAL: Awake and alert. Grossly non focal Psych: cooperative PICC line site with no e/o infection. Laboratory Laboratory Tests Test 01/23/17 01/23/17 01/24/17 21:30 21:35 03:18 Lactic Acid Level 1.4 White Blood Count 15.9 Red Blood Count 4.44 Hemoglobin 11.1 Hematocrit 34.1 Mean Corpuscular Volume 76.8 Mean Corpuscular Hemoglobin 24.9 Mean Corpuscular Hemoglobin 32.4 Concent Red Cell Distribution Width 17.7 Platelet Count 369 Mean Platelet Volume 8.1 Neutrophils (%) (Auto) 79.8 Lymphocytes (%) (Auto) 15.0 Monocytes (%) (Auto) 4.1 Eosinophils (%) (Auto) 0.3 Basophils (%) (Auto) 0.8 Neutrophils # (Auto) 12.7 Lymphocytes # (Auto) 2.4 Monocytes # (Auto) 0.7 Eosinophils # (Auto) 0.1 Basophils # (Auto) 0.1 CBC Comment DIFF FINAL Differential Comment Sodium Level 141 Potassium Level 2.9 Chloride Level 106 Carbon Dioxide Level 26.5 Anion Gap 9 Blood Urea Nitrogen 4 Creatinine 0.41 Estimat Glomerular Filtration 255 Rate Random Glucose 122 Calcium Level 8.7 Magnesium Level 2.2 Total Creatine Kinase 19 11 Date/Time Procedure Status Source Growth 01/23/17 21:40 Aerobic Blood Culture - Preliminary Resulted Blood Peripheral Gram Negative Twan 01/23/17 21:40 Anaerobic Blood Culture - Preliminary Resulted Gram Negative Twan Result Diagram: 01/23/17213401/23/172134 Imaging Last Impressions Lower Extremity CT 01/24/17 0000 Signed Impressions: Service Date/Time: Thursday, January 24, 2017 11:08 - CONCLUSION: Stable examination with osteoarthritis, postsurgical changes and effusion. Irwin Prieto MD Assessment and Plan Assessment and Plan Sepsis present on admission (leucocytosis, tachycardia, subjective fevers, Strep and E.coli bacteremia) Strep bacteremia (01/23/2017 ED visit) E.coli ? ESBL based on marker bacteremia Pleomorphic gram positive bacteremia. Hemophilia PICC line in place likely source of infection. Suspect patient hygiene or tampering of device. Recs: DC PICC line after PIV obtained. Vascular access consult. DC Ceftriaxone IV DC Clinda Start Meropenem IV (ASP: ESBL E.coli based on verigene marker). Start Vanco IV (Gram positive rods bacteremia) If no other organisms other than E.coli ESBL will likely deescalate to Ertapenem IV. Will follow cultures to decide. d/w RN D.w Patient D.w . If bacteremia transient and controlled after PICC line removal will hopefully need 2 weeks. Will follow cultures to decide. Critical thinking and decision making. Prior chart reviewed for multiple admissions. MAR reviewed. Rosy Hoyt MD Jan 24, 2017 14:02
[2017-01-24] MEDS ORDERED: Vancomycin Consult Pharmacy 1 EA OTHER SCH (14:30)
[2017-01-24] MEDS ORDERED: ASP: Path resistant to other antimicrobials, culture proven PRN (14:30)
[2017-01-24] MEDS ORDERED: MISCELLANEOUS PHARMACY INFORMATION XX PRN (14:30)
--- NOTE | 2017-01-24 14:32 | HHI.PR ---
Subjective Remarks F/u sepsis. Complaining of acute and chronic pain. Pain mgt was discussed states he is on RTC MSO4 and prn oxycodone q 4H RN to verify Objective Vitals Vital Signs Date Time Temp Pulse Resp B/P Pulse Ox O2 Delivery O2 Flow Rate FiO2 01/24/17 12:00 97.6 92 20 106/70 96 01/24/17 08:00 97.8 86 18 109/68 99 01/24/17 05:30 97.5 91 18 137/63 96 01/24/17 03:09 98.4 93 20 108/72 97 01/23/17 21:47 18 100 Room Air 01/23/17 21:20 98.3 111 18 123/77 100 Result Diagram: 01/23/17213401/23/172134 Imaging Last Impressions Lower Extremity CT 01/24/17 0000 Signed Impressions: Service Date/Time: Tuesday, January 24, 2017 11:08 - CONCLUSION: Stable examination with osteoarthritis, postsurgical changes and effusion. Irwin Prieto MD Objective Remarks GENERAL: This is a well-nourished, well-developed patient, in distress due to pain SKIN: No rashes, ecchymoses or lesions. Cool and dry. HEAD: Atraumatic. Normocephalic. No temporal or scalp tenderness. EYES: Pupils equal round and reactive. Extraocular motions intact. No scleral icterus. No injection or drainage. ENT: Nose without bleeding, purulent drainage or septal hematoma. Throat without erythema, tonsillar hypertrophy or exudate. Uvula midline. Airway patent. NECK: Trachea midline. No JVD or lymphadenopathy. Supple, nontender, no meningeal signs. CARDIOVASCULAR: Regular rate and rhythm without murmurs, gallops, or rubs. RESPIRATORY: Clear to auscultation. Breath sounds equal bilaterally. No wheezes , rales, or rhonchi. GASTROINTESTINAL: Abdomen soft, non-tender, nondistended. No guarding. MUSCULOSKELETAL: Left knee swollen and tender to palpation, not warm. There is small ecchymotic region on the inner side of the left knee. Right calf with small ecchymotic region. Pulses are palpable in bilateral lower extremities, including pedal and posterior tibial. NEUROLOGICAL: Awake and alert. Cranial nerves II through XII intact. Motor and sensory grossly within normal limits. Five out of 5 muscle strength in all muscle groups. Normal speech. A/P Problem List: (1) Sepsis ICD Code: A41.9 Status: Resolved (2) Bacteremia ICD Code: R78.81 Status: Acute (3) Left knee pain ICD Code: M25.562 Status: Acute (4) Leukocytosis ICD Code: D72.829 Status: Acute (5) Hypokalemia ICD Code: E87.6 Status: Acute (6) Hemarthrosis ICD Code: M25.00 Status: Acute (7) Right calf pain ICD Code: M79.661 Status: Acute Assessment and Plan Sepsis secondary to PICC line infection. Urinalysis negative, chest is clear on exam. Blood cultures 01/19 with viridans strep and GPR. 01/23 with Escherichia coli ESBL and gram-negative siomara. Discussed with infectious disease, dc PICC line and start Merrem and Vanco Left knee pain secondary to hemarthrosis with history of hemophilia. Continue pain control with home medications and as needed IV Dilaudid. Counseled regarding narcotics. Per Heme, increase Novoseven and start Feiba in am Right calf pain Will check a venous Doppler of the right lower extremity. Suspicious for bleeding. Will hold SCDs from the right lower extremity. Hypokalemia Replace potassium IV and orally and continue to monitor BMP. Continue to replace as needed. GI prophylaxis: Place on PPI. 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 Problem Qualifiers (1) Sepsis: Qualified Code: A41.9 - Sepsis, due to unspecified organism (2) Left knee pain: Qualified Code: M25.562 - Acute pain of left knee (3) Leukocytosis: Qualified Code: D72.829 - Leukocytosis, unspecified type Norman Aponte MD Jan 24, 2017 14:32
[2017-01-24] MEDS: HYDROmorphone HCL PF 1 MG/ML VIAL IV PUSH PRN ×2 (15:17→22:53)
[2017-01-24] MEDS: MEROPENEM INJ 500 MG in SODIUM CHLORIDE 0.9% INJ 100 ML IV SCH (15:18)
[2017-01-24 16:00] VITALS: BP 126/78; PULSE 91; RESP 19; TEMP 97.4; O2SAT 98
[2017-01-24] MEDS: VANCOMYCIN INJ 1,250 MG in SODIUM CHLOR 0.9% 250 ML INJ 250 ML IV SCH (16:28)
[2017-01-24 16:40] LABS: REVIEW FLAG FINAL
[2017-01-24] MEDS: NICOTINE 4 MG/GUM CHEW PRN ×3 (17:35→21:30)
[2017-01-24] MEDS ORDERED: [UNRECOGNIZED DRUG - OTHER] IV SCH (18:00)
--- NOTE | 2017-01-24 18:54 | RADRPT ---
EXAM DATE/TIME: 01/24/2017 17:55 [facility] COMPARISON: No previous studies available for comparison. INDICATIONS : Right leg swelling. MEDICAL HISTORY : Anticoagulant therapy. Hemophilia. Gastric ulcers. Arthritis. Anxiety. Chemotherapy. Blood transfusio n. MDRO. SURGICAL HISTORY : Port placement. Left knee incision and drainage. Left femur repair. Radioactive synovectomy. Right el bow surgery. Right arm fasciotomy. ENCOUNTER: Initial ACUITY: 4 - 6 days PAIN SCORE: 7/10 LOCATION: Right leg. TECHNIQUE: Venous ultrasound of the leg was performed from the inguinal ligament to the proximal calf. Real-maribel e, color Doppler and spectral tracing, compression and augmentation techniques were used. FINDINGS: There is normal compressibility of the deep venous system from the inguinal region to the proximal ca lf. No echogenic clot is seen in the lumen of the common femoral, femoral, popliteal, and posterior tibial veins. There is a normal response of the venous system to proximal and distal augmentation an d respiration. CONCLUSION: No DVT. Ulysses Snowden MD on January 24, 2017 at 18:50 Board Certified Radiologist. This report was verified electronically.
[2017-01-24 21:15] VITALS: BP 120/93; PULSE 104; RESP 20; TEMP 98.2; O2SAT 99
[2017-01-24] MEDS ORDERED: FACTOR VIIA (RECOMB) 5 MG VIAL IV PUSH SCH (22:00)
[2017-01-24] MEDS ORDERED: [UNRECOGNIZED DRUG - OTHER] IV SCH (23:30)
[2017-01-25] MEDS: VANCOMYCIN INJ 1,250 MG in SODIUM CHLOR 0.9% 250 ML INJ 250 ML IV SCH ×3 (00:04→15:03)
[2017-01-25] MEDS: [UNRECOGNIZED DRUG - OTHER] IV SCH ×3 (00:04→16:33)
[2017-01-25] MEDS: MEROPENEM INJ 500 MG in SODIUM CHLORIDE 0.9% INJ 100 ML IV SCH ×4 (00:05→22:32)
[2017-01-25] MEDS: NICOTINE 4 MG/GUM CHEW PRN ×9 (00:26→21:27)
[2017-01-25] MEDS: HYDROmorphone HCL PF 1 MG/ML VIAL IV PUSH PRN ×5 (00:38→11:04)
[2017-01-25 00:45] VITALS: BP 131/93; PULSE 94; RESP 22; TEMP 97.8; O2SAT 97
[2017-01-25] MEDS ORDERED: HYDROmorphone HCL PF 1 MG/ML VIAL IV PUSH ONE (01:45)
[2017-01-25] MEDS ORDERED: FACTOR VIIA (RECOMB) 5 MG VIAL IV PUSH SCH (03:00)
[2017-01-25] MEDS: FACTOR VIIA (RECOMB) 5 MG VIAL IV PUSH SCH ×3 (04:00→19:52)
[2017-01-25 04:30] VITALS: BP 127/88; PULSE 95; RESP 21; TEMP 98; O2SAT 98
[2017-01-25] MEDS: ALPRAZolam 0.5 MG TAB PO SCH ×3 (05:52→21:26)
[2017-01-25 08:00] VITALS: BP 124/82; PULSE 96; RESP 19; TEMP 97.9; O2SAT 98
[2017-01-25] MEDS: MORPHINE SULFATE 60 MG CONTROLLED RELEASE TAB PO SCH ×2 (08:39→19:50)
[2017-01-25] MEDS: DOCUSATE SODIUM 50 MG/SENNA 8.6 MG TAB PO SCH ×2 (09:00→21:00)
[2017-01-25] MEDS: SODIUM CHLORIDE 0.9% FLUSH 10 ML FLUSH IV FLUSH SCH ×2 (09:00→21:28)
[2017-01-25] MEDS ORDERED: HYDROmorphone HCL PF 2 MG/ML VIAL IV PUSH ONE (09:45)
[2017-01-25 09:46] LABS: AUTOMATED NEUTROPHIL # 3.8 TH/MM3 (1.8-7.7); BASOPHIL % 0.6 % (0.0-2.0); EOSINOPHIL # 0.5 TH/MM3 (0-0.4); EOSINOPHIL % 8.2 % (0.0-4.0); HEMATOCRIT 31.2 % (39.0-51.0); HEMO FLAGS DIFF FINAL; LYMPH % 24.8 % (9.0-44.0); LYMPHOCYTE # 1.7 TH/MM3 (1.0-4.8); MEAN CELL VOLUME 77.2 FL (80.0-100.0); MEAN CORPUSCULAR HEMOGLOBIN 25.9 PG (27.0-34.0); MEAN CORPUSCULAR HGB CONC 33.5 % (32.0-36.0); MONO % 9.6 % (0.0-8.0); NEUT % 56.8 % (16.0-70.0); PLATELET COUNT 278 TH/MM3 (150-450); RED BLOOD COUNT 4.04 MIL/MM3 (4.50-5.90); RED CELL DISTRIBUTION WIDTH 18.2 % (11.6-17.2); WHITE BLOOD COUNT 6.7 TH/MM3 (4.0-11.0)
--- NOTE | 2017-01-25 10:01 | HHI.PR ---
Subjective Remarks Follow-up sepsis and hemarthrosis. Patient was asleep with his body half way out of bed when I walked in. Patient states he he walked to the bathroom and back. States she has excruciating left knee pain and requesting for more IV pain medications which I declined stating he was already passed out. Discussed with RN, ID and hematology Objective Vitals Vital Signs Date Time Temp Pulse Resp B/P Pulse Ox O2 Delivery O2 Flow Rate FiO2 01/25/17 08:00 97.9 96 19 124/82 98 01/25/17 04:30 98.0 95 21 127/88 98 01/25/17 00:45 97.8 94 22 131/93 97 01/24/17 21:15 98.2 104 20 120/93 99 01/24/17 16:00 97.4 91 19 126/78 98 01/24/17 12:00 97.6 92 20 106/70 96 I/O 01/24/17 01/24/17 01/24/17 01/25/17 01/25/17 01/25/17 06:59 14:59 22:59 06:59 14:59 22:59 Intake Total 480 ml 1000 ml 4200 ml Output Total 800 ml 2400 ml 1200 ml Balance -320 ml 1000 ml 1800 ml -1200 ml Intake Oral 480 ml 1000 ml 4200 ml Output Urine Total 800 ml 2400 ml 1200 ml # Voids 2 0 # Bowel Movements 0 0 Result Diagram: 01/25/17 0904 01/23/17 2135 Imaging Last Impressions Lower Extremity Ultrasound 01/24/17 0000 Signed Impressions: Service Date/Time: Tuesday, January 24, 2017 17:55 - CONCLUSION: No DVT. Ulysses Snowden MD Lower Extremity CT 01/24/17 0000 Signed Impressions: Service Date/Time: Tuesday, January 24, 2017 11:08 - CONCLUSION: Stable examination with osteoarthritis, postsurgical changes and effusion. Irwin Prieto MD Objective Remarks GENERAL: This is a well-nourished, well-developed patient, in no distress SKIN: No rashes, ecchymoses or lesions. Cool and dry. HEAD: Atraumatic. Normocephalic. No temporal or scalp tenderness. EYES: Pupils equal round and reactive. Extraocular motions intact. No scleral icterus. No injection or drainage. ENT: Nose without bleeding, purulent drainage or septal hematoma. NECK: Trachea midline. MUSCULOSKELETAL: Left knee swollen seems to be less and tender to palpation, not warm and red. Able to flex and extend left knee NEUROLOGICAL: Awake and alert. Cranial nerves II through XII intact. Motor and sensory grossly within normal limits. Five out of 5 muscle strength in all muscle groups. Normal speech. A/P Problem List: (1) Sepsis ICD Code: A41.9 Status: Resolved (2) Bacteremia ICD Code: R78.81 Status: Acute (3) Left knee pain ICD Code: M25.562 Status: Acute (4) Leukocytosis ICD Code: D72.829 Status: Acute (5) Hypokalemia ICD Code: E87.6 Status: Acute (6) Hemarthrosis ICD Code: M25.00 Status: Acute (7) Right calf pain ICD Code: M79.661 Status: Acute Assessment and Plan Sepsis secondary to PICC line infection. Blood cultures 01/19 with viridans strep and GPR. 01/23 with Escherichia coli ESBL and gram-negative siomara. Discussed with infectious disease, dc PICC line and continue Merrem and Vanco. Follow up cultures Left knee pain secondary to hemarthrosis with history of hemophilia. Continue pain control with home medications and as needed IV Dilaudid. Counseled regarding narcotics. Per Heme, start Feiba and decrease NovoSeven Right calf pain Doppler of the right lower extremity negative for DVT. Will hold SCDs from the right lower extremity. Hypokalemia. Improved Status post replacement. Continue to monitor BMP. GI prophylaxis: Place on PPI. 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 Consult physical therapy Discharge Planning Not stable for discharge Problem Qualifiers (1) Sepsis: Qualified Code: A41.9 - Sepsis, due to unspecified organism (2) Left knee pain: Qualified Code: M25.562 - Acute pain of left knee (3) Leukocytosis: Qualified Code: D72.829 - Leukocytosis, unspecified type Norman Aponte MD Jan 25, 2017 10:01
[2017-01-25 10:06] LABS: APTT (PATIENT) 74.8 SEC (24.3-30.1)
--- NOTE | 2017-01-25 10:16 | PD.ONC.PN ---
Subjective Subjective Remarks Afebrile overnight. Has significant pain in left knee He feels like the swelling continues to get worse Objective Data Date Time Temp Pulse Resp B/P Pulse Ox O2 Delivery O2 Flow Rate FiO2 01/25/17 08:00 97.9 96 19 124/82 98 01/25/17 04:30 98.0 95 21 127/88 98 01/25/17 00:45 97.8 94 22 131/93 97 01/24/17 21:15 98.2 104 20 120/93 99 01/24/17 16:00 97.4 91 19 126/78 98 01/24/17 12:00 97.6 92 20 106/70 96 01/25/17 01/25/17 01/25/17 07:00 15:00 23:00 Intake Total 4200 ml Output Total 2400 ml 1200 ml Balance 1800 ml -1200 ml Result Diagram: 01/25/17 0904 01/23/17 2135 Laboratory Results Laboratory Tests Test 01/24/17 01/25/17 16:12 09:04 Hemoglobin 11.0 GM/DL 10.5 GM/DL Hematocrit 33.0 % 31.2 % White Blood Count 6.7 TH/MM3 Red Blood Count 4.04 MIL/MM3 Mean Corpuscular Volume 77.2 FL Mean Corpuscular Hemoglobin 25.9 PG Mean Corpuscular Hemoglobin 33.5 % Concent Red Cell Distribution Width 18.2 % Platelet Count 278 TH/MM3 Mean Platelet Volume 7.9 FL Neutrophils (%) (Auto) 56.8 % Lymphocytes (%) (Auto) 24.8 % Monocytes (%) (Auto) 9.6 % Eosinophils (%) (Auto) 8.2 % Basophils (%) (Auto) 0.6 % Neutrophils # (Auto) 3.8 TH/MM3 Lymphocytes # (Auto) 1.7 TH/MM3 Monocytes # (Auto) 0.6 TH/MM3 Eosinophils # (Auto) 0.5 TH/MM3 Basophils # (Auto) 0.0 TH/MM3 CBC Comment DIFF FINAL Differential Comment Culture Results Microbiology Date/Time Procedure Status Source Growth 01/23/17 21:30 Aerobic Blood Culture - Preliminary Resulted Blood Peripheral Escherichia Coli 01/23/17 21:30 Anaerobic Blood Culture - Preliminary Resulted Gram Negative Twan 01/23/17 21:40 Aerobic Blood Culture - Preliminary Resulted Blood Peripheral Gram Negative Twan 01/23/17 21:40 Anaerobic Blood Culture - Preliminary Resulted Gram Negative Twan 01/24/17 14:05 Aerobic Blood Culture - Preliminary Resulted Blood Other Gram Negative Twan 01/24/17 14:05 Anaerobic Blood Culture - Preliminary Resulted Gram Negative Twan 01/24/17 16:12 Aerobic Blood Culture Worksheet Blood Peripheral Pending 01/24/17 16:12 Anaerobic Blood Culture Worksheet Blood Peripheral Pending Imaging Studies Last 48 hours Impressions Lower Extremity Ultrasound 01/24/17 0000 Signed Impressions: Service Date/Time: Tuesday, January 24, 2017 17:55 - CONCLUSION: No DVT. Ulysses Snowden MD Lower Extremity CT 01/24/17 0000 Signed Impressions: Service Date/Time: Tuesday, January 24, 2017 11:08 - CONCLUSION: Stable examination with osteoarthritis, postsurgical changes and effusion. Irwin Prieto MD Administered Medications Medications (Trade) Dose Ordered Sig/Mike Route PRN Reason Start Time Stop Time Status Last Admin Dose Admin Sodium Chloride (NS Flush) 2 ml BID IV FLUSH 01/24/17 09:00 01/24/17 21:00 Alprazolam (Xanax) 0.5 mg Q8HR PO 01/24/17 06:00 01/25/17 05:52 Morphine Sulfate (Oramorph Sr) 60 mg Q12HR PO 01/24/17 00:45 01/25/17 08:39 Nicotine (Nicotine Gum) 4 mg Q1H PRN CHEW ANXIETY 01/24/17 10:45 01/25/17 09:00 Oxycodone HCl 30 mg 30 mg Q4H PRN PO PAIN 1-10 01/24/17 14:30 01/25/17 05:52 Meropenem 500 mg/ Sodium Chloride 100 ml @ 200 mls/hr Q8H IV 01/24/17 15:00 01/25/17 06:41 Vancomycin HCl/ Sodium Chloride (Vancomycin Inj/ NS 250 ml Inj) 250 ml @ 250 mls/hr Q8H IV 01/24/17 16:00 01/25/17 09:33 Factor VII (Pha) (Novoseven Rt Inj) 10 mg Q8H IV PUSH 01/25/17 04:00 01/25/17 04:00 Patient Own Medication FEIBA 7500 UNITS DOSE: For IV injection... Q8H IV 01/25/17 00:00 01/25/17 08:45 Hydromorphone HCl (Dilaudid Pf Inj) 1 mg Q2H PRN IV PUSH BREAKTHROUGH PAIN 01/25/17 00:45 01/25/17 06:45 Objective Remarks GENERAL: Anxious appearing, disheveled younger male sitting up on side of bed holding left knee. SKIN: Warm and dry. HEAD: Normocephalic. EYES: No injection or drainage. NECK: Supple, trachea midline. CARDIOVASCULAR: + S1/S2. RESPIRATORY: Clear posteriorly. Breathing unlabored. GASTROINTESTINAL: Abdomen soft, non-tender, nondistended. EXTREMITIES: Left knee swelling, R leg swollen NEUROLOGICAL: Normal speech, moving all extremities. Assessment/Plan Problem List: (1) Hemarthrosis Status: Acute Plan: -- Per radiology, CT left knee approximately slightly worse than prior image --On NovoSeven every 8 hours --On FEIBA every 8 hours --Getting factor every 4 hours (2) Hemophilia A Status: Chronic (3) Bacteremia Status: Acute Plan: -- Pt was seen in the ER for non-functioning PICC line -- Cultures grew back gram positive rods -- He was called back for admission for IV Abx -- ID following -- Currently on Vanco and Meropenem. Assessment 26-year-old male with hemophilia A admitted for hemarthrosis of the left knee Plan 1. Continue factors at current dose 2. Monitor CBC 3. Continue current pain regimen Attending Statement The exam, history, and the medical decision-making described in the above note were completed with the assistance of the mid-level provider. I reviewed and agree with the findings presented. I attest that I had a [id number] encounter with the patient on the same day, and personally performed and documented my assessment and findings in the medical record. C/o left knee pain and swelling. Reviewed CT with radiologist yesterday and there is slight increase effusion compare to November. Spoke to pt's father last night and he concurred that pt's left knee is swollen. I have changed his factor replacement to Feiba q8 and Andi seven Q8 alternating every 4 hours. The left knee appear about the same as yesterday but has increased warmth. Hgb relatively stable. Need to monitor for septic arthritis given his bacteremia. He is on abx and WBC has trended lower. Continue abx per ID. Will increase dialudid dose for now. Tanisha Moore Jan 25, 2017 10:16 Anuel Quarles MD Jan 25, 2017 12:47
[2017-01-25 10:17] LABS: MAGNESIUM 1.9 MG/DL (1.5-2.5)
--- NOTE | 2017-01-25 11:14 | HHI.PR ---
Addendum to Inpatient Note Addendum Reason: Additional Documentation Additional Information d/w RN: PICC line No fevers WBC normalized Other vitals stable and clinically doing well. Recommend continue Vanco IV and Meropenem IV. Repeat blood cultures in am. Rosy Hoyt MD Jan 25, 2017 11:14
[2017-01-25 12:00] VITALS: BP 119/79; PULSE 92; RESP 19; TEMP 98; O2SAT 96
[2017-01-25] MEDS: HYDROmorphone HCL PF 2 MG/ML VIAL IV PUSH PRN ×4 (14:14→22:10)
[2017-01-25] MEDS ORDERED: PHARMACY ORDERED LAB ONE ×2 (15:45→23:45)
[2017-01-25 16:00] VITALS: BP 111/69; PULSE 91; RESP 19; TEMP 97.8; O2SAT 98
[2017-01-25 22:48] VITALS: BP 119/64; PULSE 98; RESP 18; TEMP 97.6; O2SAT 98
[2017-01-26] VITALS (8 sets, daily range): BP systolic 104–121; BP diastolic 57–73; PULSE 81–97; RESP 18–23; TEMP 96.8–98.1; O2SAT 96–100
[2017-01-26] MEDS: [UNRECOGNIZED DRUG - OTHER] IV SCH ×2 (00:01→16:50)
[2017-01-26] MEDS: HYDROmorphone HCL PF 2 MG/ML VIAL IV PUSH PRN ×10 (00:46→23:25)
[2017-01-26] MEDS: NICOTINE 4 MG/GUM CHEW PRN ×8 (00:46→20:28)
[2017-01-26] MEDS: VANCOMYCIN INJ 1,250 MG in SODIUM CHLOR 0.9% 250 ML INJ 250 ML IV SCH (00:48)
[2017-01-26] MEDS: FACTOR VIIA (RECOMB) 5 MG VIAL IV PUSH SCH ×2 (03:26→13:39)
[2017-01-26] MEDS ORDERED: NALOXONE HCL 0.4 MG/ML AMP IV PUSH PRN (04:30)
[2017-01-26] MEDS: MEROPENEM INJ 500 MG in SODIUM CHLORIDE 0.9% INJ 100 ML IV SCH (07:06)
[2017-01-26] MEDS: ALPRAZolam 0.5 MG TAB PO SCH ×3 (07:06→20:22)
[2017-01-26] MEDS ORDERED: ANTI-INHIBITOR COAGULANT COMPLEX 100 UNIT INJ IV SCH (08:00)
[2017-01-26] MEDS: MORPHINE SULFATE 60 MG CONTROLLED RELEASE TAB PO SCH ×2 (08:08→20:22)
[2017-01-26] MEDS: DOCUSATE SODIUM 50 MG/SENNA 8.6 MG TAB PO SCH ×2 (08:15→20:25)
[2017-01-26] MEDS: SODIUM CHLORIDE 0.9% FLUSH 10 ML FLUSH IV FLUSH SCH ×2 (08:15→21:00)
[2017-01-26 08:46] LABS: AUTOMATED NEUTROPHIL # 3.9 TH/MM3 (1.8-7.7); BASOPHIL % 0.6 % (0.0-2.0); EOSINOPHIL # 0.7 TH/MM3 (0-0.4); EOSINOPHIL % 9.2 % (0.0-4.0); HEMATOCRIT 34.9 % (39.0-51.0); HEMO FLAGS DIFF FINAL; LYMPH % 32.3 % (9.0-44.0); LYMPHOCYTE # 2.5 TH/MM3 (1.0-4.8); MEAN CELL VOLUME 78.6 FL (80.0-100.0); MEAN CORPUSCULAR HEMOGLOBIN 24.8 PG (27.0-34.0); MEAN CORPUSCULAR HGB CONC 31.6 % (32.0-36.0); MONO % 8.3 % (0.0-8.0); NEUT % 49.6 % (16.0-70.0); PLATELET COUNT 296 TH/MM3 (150-450); RED BLOOD COUNT 4.44 MIL/MM3 (4.50-5.90); RED CELL DISTRIBUTION WIDTH 18.2 % (11.6-17.2); WHITE BLOOD COUNT 7.8 TH/MM3 (4.0-11.0)
--- NOTE | 2017-01-26 09:00 | PD.ONC.PN ---
Subjective Subjective Remarks Patient seen and examined. Blood work, medications, blood cultures were reviewed. Medications including factor replacement dosing reviewed as well. Subjectively, the patient reports pain in the left knee, right ankle and swelling of the right calf. He tells me he feels as if he is bleeding significantly in his left knee and his right ankle and right calf. He denies fevers but reports chills. Right upper extremity PICC line was discontinued at the time of hospitalization for bacteremia/sepsis. Blood cultures growing multiple bacteria including gram-positive and gram- negative. Objective Data Date Time Temp Pulse Resp B/P Pulse Ox O2 Delivery O2 Flow Rate FiO2 01/26/17 08:29 97.9 95 18 109/62 96 01/26/17 06:45 97.7 97 20 104/57 98 01/26/17 05:29 16 01/26/17 05:29 16 01/26/17 00:30 98.1 93 22 121/73 96 01/25/17 22:48 97.6 98 18 119/64 98 01/25/17 16:00 97.8 91 19 111/69 98 01/25/17 12:00 98.0 92 19 119/79 96 01/26/17 01/26/17 01/26/17 07:00 15:00 23:00 Intake Total 2600 ml Output Total 2000 ml Balance 600 ml Result Diagram: 01/26/17 0750 01/25/17 0906 Laboratory Results Laboratory Tests Test 01/25/17 01/25/17 01/25/17 01/26/17 09:04 09:06 23:50 07:50 White Blood Count 6.7 TH/MM3 7.8 TH/MM3 Red Blood Count 4.04 MIL/MM3 4.44 MIL/MM3 Hemoglobin 10.5 GM/DL 11.0 GM/DL Hematocrit 31.2 % 34.9 % Mean Corpuscular Volume 77.2 FL 78.6 FL Mean Corpuscular Hemoglobin 25.9 PG 24.8 PG Mean Corpuscular Hemoglobin 33.5 % 31.6 % Concent Red Cell Distribution Width 18.2 % 18.2 % Platelet Count 278 TH/MM3 296 TH/MM3 Mean Platelet Volume 7.9 FL 8.0 FL Neutrophils (%) (Auto) 56.8 % 49.6 % Lymphocytes (%) (Auto) 24.8 % 32.3 % Monocytes (%) (Auto) 9.6 % 8.3 % Eosinophils (%) (Auto) 8.2 % 9.2 % Basophils (%) (Auto) 0.6 % 0.6 % Neutrophils # (Auto) 3.8 TH/MM3 3.9 TH/MM3 Lymphocytes # (Auto) 1.7 TH/MM3 2.5 TH/MM3 Monocytes # (Auto) 0.6 TH/MM3 0.6 TH/MM3 Eosinophils # (Auto) 0.5 TH/MM3 0.7 TH/MM3 Basophils # (Auto) 0.0 TH/MM3 0.0 TH/MM3 CBC Comment DIFF FINAL DIFF FINAL Differential Comment Activated Partial 74.8 SEC Thromboplast Time Sodium Level 138 MEQ/L Potassium Level 4.0 MEQ/L Chloride Level 104 MEQ/L Carbon Dioxide Level 26.0 MEQ/L Anion Gap 8 MEQ/L Blood Urea Nitrogen 2 MG/DL Creatinine 0.40 MG/DL Estimat Glomerular Filtration 262 ML/MIN Rate Random Glucose 100 MG/DL Calcium Level 8.8 MG/DL Magnesium Level 1.9 MG/DL Vancomycin Level Trough 10.0 MCG/ML Culture Results Microbiology Date/Time Procedure Status Source Growth 01/23/17 21:30 Aerobic Blood Culture - Preliminary Resulted Blood Peripheral Escherichia Coli 01/23/17 21:30 Anaerobic Blood Culture - Preliminary Resulted Gram Negative Twan 01/23/17 21:40 Aerobic Blood Culture - Preliminary Resulted Blood Peripheral Gram Negative Twan 01/23/17 21:40 Anaerobic Blood Culture - Preliminary Resulted Gram Negative Twan 01/24/17 14:05 Aerobic Blood Culture - Preliminary Resulted Blood Other Gram Negative Twan 01/24/17 14:05 Anaerobic Blood Culture - Preliminary Resulted Gram Negative Twan 01/24/17 16:12 Aerobic Blood Culture - Preliminary Resulted Blood Peripheral NO GROWTH IN 1 DAY 01/24/17 16:12 Anaerobic Blood Culture - Preliminary Resulted Blood Peripheral NO GROWTH IN 1 DAY 01/26/17 07:50 Aerobic Blood Culture Received Blood Peripheral Pending 01/26/17 07:50 Anaerobic Blood Culture Received Blood Peripheral Pending 01/26/17 07:55 Aerobic Blood Culture Received Blood Peripheral Pending 01/26/17 07:55 Anaerobic Blood Culture Received Blood Peripheral Pending Administered Medications Medications (Trade) Dose Ordered Sig/Mike Route PRN Reason Start Time Stop Time Status Last Admin Dose Admin Sodium Chloride (NS Flush) 2 ml BID IV FLUSH 01/24/17 09:00 01/25/17 21:28 Alprazolam (Xanax) 0.5 mg Q8HR PO 01/24/17 06:00 01/26/17 07:06 Morphine Sulfate (Oramorph Sr) 60 mg Q12HR PO 01/24/17 00:45 01/26/17 08:08 Nicotine (Nicotine Gum) 4 mg Q1H PRN CHEW ANXIETY 01/24/17 10:45 01/26/17 08:38 Oxycodone HCl 30 mg 30 mg Q4H PRN PO PAIN 1-10 01/24/17 14:30 01/26/17 08:37 Meropenem/Sodium Chloride (Merrem Inj/NS Inj) 100 ml @ 200 mls/hr Q8H IV 01/24/17 15:00 01/26/17 07:06 Factor VII (Pha) (Novoseven Rt Inj) 10 mg Q8H IV PUSH 01/25/17 04:00 01/26/17 03:26 Patient Own Medication FEIBA 7500 UNITS DOSE: For IV injection... Q8H IV 01/25/17 00:00 Hold 01/26/17 00:01 Hydromorphone HCl (Dilaudid Pf Inj) 2 mg Q2H PRN IV PUSH BREAKTHROUGH PAIN 01/25/17 13:30 01/26/17 07:29 Anti-Inhibitor Coagulant Complex (Feiba Nf Inj) 7,500 units Q8H IV 01/26/17 08:00 01/26/17 08:12 Objective Remarks GENERAL: Young man, sitting up in bed, awake and alert. Alert and oriented 3 , he is in pain but does not seem to be in excruciating pain. HEENT: Atraumatic, normocephalic. Pupils equal, round and reactive light. Extraocular muscles intact. No scleral icterus. Oropharynx - dry mucosa, no lesion, no thrush, no mucositis. NECK: No thyromegaly. No palpable mass. LYMPHATICS: No palpable cervical, clavicular, axillary or inguinal lymph nodes. CARDIOVASCULAR: Regular S1 and S2. No murmur. LUNGS: Clear to auscultation bilaterally. No wheezing or rhonchi. ABDOMEN: Soft, nontender. I could not palpate the liver or spleen. EXTREMITIES: The left knee is swollen but no increased warmth, I do not see ecchymosis. No calf tenderness. Edema bilateral lower extremities including the ankles. More severe on the right side as opposed to left. SKIN: As above. NEUROLOGIC: Nonfocal. Assessment/Plan Problem List: (1) Hemarthrosis Status: Acute Plan: -- Per radiology, CT left knee approximately slightly worse than prior image. -- On FEIBA and NovoSeven every 12 hours with doses alternating every 6 hours. -- There has been a significant drop in his hemoglobin, baseline hemoglobin is 13-14 g/dL, hemoglobin at the time of presentation was 11 g/dL. 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 Interestingly, repeat inhibitor titers for November 2016 indicated no evidence of inhibitor. (3) Bacteremia Status: Acute Plan: -- Pt was seen in the ER for non-functioning PICC line -- Cultures grew back gram positive rods -- He was called back for admission for IV Abx -- ID following -- Currently on Vanco and Meropenem. Assessment 26-year-old male with hemophilia A admitted for hemarthrosis of the left knee Plan 1. Continue factors at current dose; with fever and NovoSeven for the time being. 2. Monitor CBC; hemoglobin below his baseline indicating recent bleeding. 3. Bacteremia: Await further characterization of the bacteria. He did have sepsis last month and was admitted to the hospital for prolonged period time, during that hospitalization his port was removed. It'll be interesting to determine whether the same bacteria persist which would indicate possible seeding of the hemarthrosis. Leno Adma MD Jan 26, 2017 09:00
[2017-01-26 09:04] LABS: APTT (PATIENT) 68.2 SEC (24.3-30.1); INTERNATIONAL NORMALIZED RATIO 0.9 RATIO; PROTHROMBIN TIME - PATIENT 9.5 SEC (9.8-11.6)
[2017-01-26] MEDS: VANCOMYCIN INJ 1,500 MG in SODIUM CHLORID 0.9% 500 ML INJ 500 ML IV SCH ×2 (09:38→19:09)
[2017-01-26] MEDS ORDERED: ASP: Path resistant to other antimicrobials, culture proven PRN (12:45)
[2017-01-26] MEDS ORDERED: MISCELLANEOUS PHARMACY INFORMATION XX PRN (12:45)
--- NOTE | 2017-01-26 15:16 | HHI.PR ---
Subjective Remarks afebrile hereno chills complain of pain mostly with the left knee no diarrhea Objective Vitals Vital Signs Date Time Temp Pulse Resp B/P Pulse Ox O2 Delivery O2 Flow Rate FiO2 01/26/17 12:00 97.6 81 23 114/65 96 01/26/17 08:29 97.9 95 18 109/62 96 01/26/17 06:45 97.7 97 20 104/57 98 01/26/17 05:29 16 01/26/17 05:29 16 01/26/17 00:30 98.1 93 22 121/73 96 01/25/17 22:48 97.6 98 18 119/64 98 01/25/17 16:00 97.8 91 19 111/69 98 I/O 01/25/17 01/25/17 01/25/17 01/26/17 01/26/17 01/26/17 07:00 15:00 23:00 07:00 15:00 23:00 Intake Total 4200 ml 980 ml 2600 ml Output Total 2400 ml 3000 ml 900 ml 2000 ml Balance 1800 ml -2020 ml -900 ml 600 ml Intake Oral 4200 ml 980 ml 2600 ml Output Urine Total 2400 ml 3000 ml 900 ml 2000 ml # Bowel Movements 0 1 0 Result Diagram: 01/26/17 0750 01/25/17 0906 Imaging Last Impressions Lower Extremity Ultrasound 01/24/17 0000 Signed Impressions: Service Date/Time: Tuesday, January 24, 2017 17:55 - CONCLUSION: No DVT. Ulysses Snowden MD Lower Extremity CT 01/24/17 0000 Signed Impressions: Service Date/Time: Tuesday, January 24, 2017 11:08 - CONCLUSION: Stable examination with osteoarthritis, postsurgical changes and effusion. Irwin Prieto MD Objective Remarks anicteric lungs no rales or wheezes regular rhythm abdomen soft, good bowel sounds extremities- left knee with effusion, tender + pedal edema A/P Problem List: (1) Sepsis ICD Code: A41.9 Status: Resolved (2) Bacteremia ICD Code: R78.81 Status: Acute (3) Left knee pain ICD Code: M25.562 Status: Acute (4) Leukocytosis ICD Code: D72.829 Status: Acute (5) Hypokalemia ICD Code: E87.6 Status: Acute (6) Hemarthrosis ICD Code: M25.00 Status: Acute (7) Right calf pain ICD Code: M79.661 Status: Acute Assessment and Plan 26 years old with Hemophilia Sepsis secondary to PICC line infection. Blood cultures 01/19 with viridans strep and GPR. 01/23 with Escherichia coli ESBL and gram-negative siomara. ID ff. PICC line removed 01/25, On Invanz and Vanco. Follow up cultures Left knee pain secondary to hemarthrosis with history of hemophilia. ? infected as source of sepsis Continue pain control with home medications and as needed IV Dilaudid. Counseled regarding narcotics. Hematology ff - on Feiba and decrease NovoSeven Right calf pain Doppler of the right lower extremity negative for DVT. Will hold SCDs from the right lower extremity. Hypokalemia. Improved Status post replacement. Continue to monitor BMP. GI prophylaxis: Place on PPI. 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 Consult physical therapy Discharge Planning Not stable for discharge Problem Qualifiers (1) Sepsis: Qualified Code: A41.9 - Sepsis, due to unspecified organism (2) Left knee pain: Qualified Code: M25.562 - Acute pain of left knee (3) Leukocytosis: Qualified Code: D72.829 - Leukocytosis, unspecified type Nicolás Green MD Jan 26, 2017 15:16
[2017-01-26] MEDS: ERTAPENEM INJ 1,000 MG in SODIUM CHLORIDE 0.9% INJ 100 ML IV SCH (16:45)
--- NOTE | 2017-01-26 18:47 | HHI.IDPN ---
Subjective Subjective Remarks is a 26 y/o CM with past medical history of hemophilia requiring factor as well as blood transfusions. He has been on factor replacement therapy for many years using a port area and upon review of medical records it appears that he's had several [id number] infections and has had 2 ports removed because of infections most notably the one in November 2016 as well. During that admission patient had multiple organisms growing from his blood cultures suspicious of tampering of his lines. During his last admission he was also suspected to have multiple joints with septic arthritis although this could not be confirmed due to his hemarthrosis and ongoing factor deficiency issues. Patient was empirically treated for those multiple organisms including Achromobacter and Stenotrophomonas with IV antibiotics while in the hospital and subsequently discharged on oral Levaquin with a stop date of February 02, 2017. Patient also grew Shira glabrata and receive micafungin IV while in the hospital. Upon discharge patient needed a PICC line placement for his factor infusions from a hematological standpoint. It appears that patient was in the emergency room on January 19 for what appears to be occluded PICC line. Blood cultures drawn at that time were positive for strep viridans. The patient was then called back to present to the hospital for admission. The patient complains of chills and feeling very cold, states has not had fevers but does not feel well. The patient also complains of increased left knee pain for the past couple days and pain in the right calf associated with small ecchymotic region. On admission patient had leucocytosis and tachycardia mild with positive blood cultures on 01/19/17 (strep viridans) and 01/23/17 (E.coli ? ESBL). Blood cultures drawn on admission on January 23 are positive for Escherichia coli with CTX M marker positive suspicious for ESBL. ID is consulted for evaluation and Mment of E.coli bacteremia likely PICC line related. Overnight events reviewed. Patient very somnolent but when awakened and kept asking for more pain medication. No fevers no rash No diarrhea Complains of left knee as well as right ankle swelling and pain. Antibiotics Meropenem IV Vancomycin IV Lines Line sites with no evidence of infection. Past Medical History Reviewed. Allergies: Coded Allergies: Nonsteroidal Anti-Inflammatory Agts (Verified Adverse Reaction, Severe, bleeding, 01/19/17) Objective . Vital Signs Date Time Temp Pulse Resp B/P Pulse Ox O2 Delivery O2 Flow Rate FiO2 01/26/17 16:00 96.8 88 20 105/57 98 01/26/17 12:00 97.6 81 23 114/65 96 01/26/17 08:29 97.9 95 18 109/62 96 01/26/17 06:45 97.7 97 20 104/57 98 01/26/17 05:29 16 01/26/17 05:29 16 01/26/17 00:30 98.1 93 22 121/73 96 01/25/17 22:48 97.6 98 18 119/64 98 01/25/17 01/25/17 01/26/17 15:00 23:00 07:00 Intake Total 980 ml 2600 ml Output Total 3000 ml 900 ml 2000 ml Balance -2020 ml -900 ml 600 ml Intake Oral 980 ml 2600 ml Output Urine Total 3000 ml 900 ml 2000 ml # Bowel Movements 1 0 . Laboratory Tests Test 01/25/17 01/26/17 09:04 07:50 White Blood Count 6.7 TH/MM3 7.8 TH/MM3 Red Blood Count 4.04 MIL/MM3 4.44 MIL/MM3 Hemoglobin 10.5 GM/DL 11.0 GM/DL Hematocrit 31.2 % 34.9 % Mean Corpuscular Volume 77.2 FL 78.6 FL Mean Corpuscular Hemoglobin 25.9 PG 24.8 PG Mean Corpuscular Hemoglobin 33.5 % 31.6 % Concent Red Cell Distribution Width 18.2 % 18.2 % Platelet Count 278 TH/MM3 296 TH/MM3 Mean Platelet Volume 7.9 FL 8.0 FL Neutrophils (%) (Auto) 56.8 % 49.6 % Lymphocytes (%) (Auto) 24.8 % 32.3 % Monocytes (%) (Auto) 9.6 % 8.3 % Eosinophils (%) (Auto) 8.2 % 9.2 % Basophils (%) (Auto) 0.6 % 0.6 % Neutrophils # (Auto) 3.8 TH/MM3 3.9 TH/MM3 Lymphocytes # (Auto) 1.7 TH/MM3 2.5 TH/MM3 Monocytes # (Auto) 0.6 TH/MM3 0.6 TH/MM3 Eosinophils # (Auto) 0.5 TH/MM3 0.7 TH/MM3 Basophils # (Auto) 0.0 TH/MM3 0.0 TH/MM3 CBC Comment DIFF FINAL DIFF FINAL Differential Comment Laboratory Tests Test 01/25/17 09:06 Sodium Level 138 MEQ/L Potassium Level 4.0 MEQ/L Chloride Level 104 MEQ/L Carbon Dioxide Level 26.0 MEQ/L Anion Gap 8 MEQ/L Blood Urea Nitrogen 2 MG/DL Creatinine 0.40 MG/DL Estimat Glomerular Filtration 262 ML/MIN Rate Random Glucose 100 MG/DL Calcium Level 8.8 MG/DL Magnesium Level 1.9 MG/DL Microbiology Date/Time Procedure Status Source Growth 01/23/17 21:30 Aerobic Blood Culture - Final Complete Blood Peripheral Escherichia Coli Esbl Positive 01/23/17 21:30 Anaerobic Blood Culture - Final Complete Escherichia Coli Esbl Positive 01/23/17 21:40 Aerobic Blood Culture - Final Complete Blood Peripheral Escherichia Coli Esbl Positive 01/23/17 21:40 Anaerobic Blood Culture - Final Complete Escherichia Coli Esbl Positive 01/24/17 14:05 Aerobic Blood Culture - Final Complete Blood Other Escherichia Coli Esbl Positive 01/24/17 14:05 Anaerobic Blood Culture - Final Complete Escherichia Coli Esbl Positive 01/24/17 16:12 Aerobic Blood Culture - Preliminary Resulted Blood Peripheral NO GROWTH IN 2 DAYS 01/24/17 16:12 Anaerobic Blood Culture - Preliminary Resulted Blood Peripheral NO GROWTH IN 2 DAYS 01/26/17 07:50 Aerobic Blood Culture Received Blood Peripheral Pending 01/26/17 07:50 Anaerobic Blood Culture Received Blood Peripheral Pending 01/26/17 07:55 Aerobic Blood Culture Received Blood Peripheral Pending 01/26/17 07:55 Anaerobic Blood Culture Received Blood Peripheral Pending Imaging Last Impressions Lower Extremity Ultrasound 01/24/17 0000 Signed Impressions: Service Date/Time: Tuesday, January 24, 2017 17:55 - CONCLUSION: No DVT. Ulysses Snowden MD Lower Extremity CT 01/24/17 0000 Signed Impressions: Service Date/Time: Tuesday, January 24, 2017 11:08 - CONCLUSION: Stable examination with osteoarthritis, postsurgical changes and effusion. Irwin Prieto MD Physical Exam GENERAL: This is a well-nourished, well-developed patient, in no apparent distress. SKIN: No rashes, ecchymoses or lesions. Cool and dry. HEAD: Atraumatic. Normocephalic. No temporal or scalp tenderness. EYES: Pupils equal round and reactive. Extraocular motions intact. No scleral icterus. No injection or drainage. ENT: Nose without bleeding, purulent drainage or septal hematoma. Throat without erythema, tonsillar hypertrophy or exudate. Uvula midline. Airway patent. NECK: Trachea midline. Supple, nontender, no meningeal signs. CARDIOVASCULAR: RRR RESPIRATORY: Clear to auscultation. Breath sounds equal bilaterally. No wheezes , rales, or rhonchi. GASTROINTESTINAL: Abdomen soft, non-tender, nondistended. MUSCULOSKELETAL: Left knee with surgical scar. Appears to be swollen to some extent but no erythema and no warmth noted. Right ankle with significant swelling but no warmth or redness noted. NEUROLOGICAL: Awake and alert. Grossly non focal Psych: cooperative PICC line site with no e/o infection. Assessment & Plan Remarks Sepsis present on admission (leucocytosis, tachycardia, subjective fevers, Strep and E.coli bacteremia) Strep viridans and lactobacillus bacteremia (01/23/2017 ED visit) ESBL Escherichia coli bacteremia Pleomorphic gram positive bacteremia. Hemophilia PICC line in place likely source of infection. Suspect patient hygiene or tampering of device. Recs: Discontinue Meropenem IV Start Ertapenem IV (ASP: ESBL E.coli actually anemia). Continue Vanco IV (Gram positive rods bacteremia) d/w RN D.w Patient If bacteremia transient and controlled after PICC line removal will hopefully need 2 weeks. Will follow cultures to decide. Rosy Hoyt MD Jan 26, 2017 18:47
[2017-01-26] MEDS: [UNRECOGNIZED DRUG - OTHER] IV SCH (20:44)
[2017-01-27] VITALS (7 sets, daily range): BP systolic 99–132; BP diastolic 53–77; PULSE 80–104; RESP 18–20; TEMP 96.4–97.9; O2SAT 97–98
[2017-01-27] MEDS: [UNRECOGNIZED DRUG - OTHER] IV SCH ×3 (00:01→17:35)
[2017-01-27] MEDS: HYDROmorphone HCL PF 2 MG/ML VIAL IV PUSH PRN ×8 (01:17→22:43)
[2017-01-27] MEDS: NICOTINE 4 MG/GUM CHEW PRN ×8 (03:43→22:44)
[2017-01-27] MEDS: VANCOMYCIN INJ 1,500 MG in SODIUM CHLORID 0.9% 500 ML INJ 500 ML IV SCH ×2 (03:49→11:13)
[2017-01-27 06:18] LABS: BASOPHIL % 0.5 % (0.0-2.0); EOSINOPHIL # 0.6 TH/MM3 (0-0.4); EOSINOPHIL % 9.2 % (0.0-4.0); HEMATOCRIT 32.3 % (39.0-51.0); HEMO FLAGS DIFF FINAL; LYMPHOCYTE # 2.5 TH/MM3 (1.0-4.8); MEAN CELL VOLUME 78.6 FL (80.0-100.0); MEAN CORPUSCULAR HEMOGLOBIN 25.8 PG (27.0-34.0); MEAN CORPUSCULAR HGB CONC 32.8 % (32.0-36.0); NEUT % 44.3 % (16.0-70.0); PLATELET COUNT 237 TH/MM3 (150-450); RED BLOOD COUNT 4.11 MIL/MM3 (4.50-5.90); RED CELL DISTRIBUTION WIDTH 18.4 % (11.6-17.2); WHITE BLOOD COUNT 6.8 TH/MM3 (4.0-11.0)
[2017-01-27] MEDS: ALPRAZolam 0.5 MG TAB PO SCH ×3 (06:52→20:32)
[2017-01-27] MEDS: [UNRECOGNIZED DRUG - OTHER] IV SCH ×3 (06:55→20:46)
[2017-01-27] MEDS ORDERED: PHARMACY ORDERED LAB ONE (08:45)
[2017-01-27] MEDS: DOCUSATE SODIUM 50 MG/SENNA 8.6 MG TAB PO SCH ×2 (09:00→20:32)
[2017-01-27] MEDS: SODIUM CHLORIDE 0.9% FLUSH 10 ML FLUSH IV FLUSH SCH ×2 (09:00→20:48)
[2017-01-27] MEDS: MORPHINE SULFATE 60 MG CONTROLLED RELEASE TAB PO SCH ×2 (09:13→20:31)
--- NOTE | 2017-01-27 09:37 | PD.ONC.PN ---
Subjective Subjective Remarks Patient reports continued pain in his left knee, right calf and right ankle. Denies fevers but reports chills. Pain continues but does respond to oral long and short acting opioids. Objective Data Date Time Temp Pulse Resp B/P Pulse Ox O2 Delivery O2 Flow Rate FiO2 01/27/17 07:22 16 01/27/17 04:13 18 01/27/17 00:00 97.1 81 18 106/53 98 01/26/17 21:41 82 01/26/17 21:09 16 01/26/17 20:00 97.4 92 18 108/70 100 01/26/17 16:00 92 01/26/17 16:00 96.8 88 20 105/57 98 01/26/17 13:00 93 01/26/17 12:00 97.6 81 23 114/65 96 01/27/17 01/27/17 01/27/17 07:00 15:00 23:00 Intake Total 720 ml Output Total 1200 ml Balance -480 ml Result Diagram: 01/27/17 0512 01/25/17 0906 Laboratory Results Laboratory Tests Test 01/27/17 05:12 White Blood Count 6.8 TH/MM3 Red Blood Count 4.11 MIL/MM3 Hemoglobin 10.6 GM/DL Hematocrit 32.3 % Mean Corpuscular Volume 78.6 FL Mean Corpuscular Hemoglobin 25.8 PG Mean Corpuscular Hemoglobin 32.8 % Concent Red Cell Distribution Width 18.4 % Platelet Count 237 TH/MM3 Mean Platelet Volume 7.8 FL Neutrophils (%) (Auto) 44.3 % Lymphocytes (%) (Auto) 37.0 % Monocytes (%) (Auto) 9.0 % Eosinophils (%) (Auto) 9.2 % Basophils (%) (Auto) 0.5 % Neutrophils # (Auto) 3.0 TH/MM3 Lymphocytes # (Auto) 2.5 TH/MM3 Monocytes # (Auto) 0.6 TH/MM3 Eosinophils # (Auto) 0.6 TH/MM3 Basophils # (Auto) 0.0 TH/MM3 CBC Comment DIFF FINAL Differential Comment Culture Results Microbiology Date/Time Procedure Status Source Growth 01/24/17 14:05 Aerobic Blood Culture - Final Complete Blood Other Escherichia Coli Esbl Positive 01/24/17 14:05 Anaerobic Blood Culture - Final Complete Escherichia Coli Esbl Positive 01/24/17 16:12 Aerobic Blood Culture - Preliminary Resulted Blood Peripheral NO GROWTH IN 2 DAYS 01/24/17 16:12 Anaerobic Blood Culture - Preliminary Resulted Blood Peripheral NO GROWTH IN 2 DAYS 01/26/17 07:50 Aerobic Blood Culture Received Blood Peripheral Pending 01/26/17 07:50 Anaerobic Blood Culture Received Blood Peripheral Pending 01/26/17 07:55 Aerobic Blood Culture Received Blood Peripheral Pending 01/26/17 07:55 Anaerobic Blood Culture Received Blood Peripheral Pending Administered Medications Medications (Trade) Dose Ordered Sig/Mike Route PRN Reason Start Time Stop Time Status Last Admin Dose Admin Sodium Chloride (NS Flush) 2 ml BID IV FLUSH 01/24/17 09:00 01/26/17 21:00 Alprazolam (Xanax) 0.5 mg Q8HR PO 01/24/17 06:00 01/27/17 06:52 Morphine Sulfate (Oramorph Sr) 60 mg Q12HR PO 01/24/17 00:45 01/27/17 09:13 Nicotine (Nicotine Gum) 4 mg Q1H PRN CHEW ANXIETY 01/24/17 10:45 01/27/17 09:12 Oxycodone HCl (Roxicodone) 30 mg Q4H PRN PO PAIN 1-10 01/24/17 14:30 01/27/17 06:52 Factor VII (Pha) (Novoseven Rt Inj) 10 mg Q8H IV PUSH 01/25/17 04:00 Hold 01/26/17 13:39 Hydromorphone HCl 2 mg 2 mg Q2H PRN IV PUSH BREAKTHROUGH PAIN 01/25/17 13:30 01/27/17 09:13 Vancomycin HCl/ Sodium Chloride (Vancomycin Inj/ NS 500 ml Inj) 515 ml @ 250 mls/hr Q8H IV 01/26/17 09:00 01/27/17 03:49 Anti-Inhibitor Coagulant Complex 7500 units 7,500 units Q8H IV 01/26/17 08:00 Hold 01/26/17 08:12 Ertapenem/Sodium Chloride (INVanz INJ/NS Inj) 100 ml @ 200 mls/hr Q24H IV 01/26/17 15:00 01/26/17 16:45 Patient Own Medication FEIBA 7500 UNITS DOSE: For IV injection... Q8H IV 01/26/17 16:00 01/27/17 09:14 Patient Own Medication PT OWN MED: NOVOSE... Q8H IV 01/26/17 20:00 01/27/17 06:55 Objective Remarks GENERAL: Young man, sitting up in bed, awake and alert. Alert and oriented 3 , he is in pain but does not seem to be in excruciating pain. HEENT: Atraumatic, normocephalic. Pupils equal, round and reactive light. Extraocular muscles intact. No scleral icterus. Oropharynx - dry mucosa, no lesion, no thrush, no mucositis. NECK: No thyromegaly. No palpable mass. LYMPHATICS: No palpable cervical, clavicular, axillary or inguinal lymph nodes. CARDIOVASCULAR: Regular S1 and S2. No murmur. LUNGS: Clear to auscultation bilaterally. No wheezing or rhonchi. ABDOMEN: Soft, nontender. I could not palpate the liver or spleen. EXTREMITIES: The left knee is swollen but no increased warmth, I do not see ecchymosis. No calf tenderness. Edema bilateral lower extremities including the ankles. More severe on the right side as opposed to left. SKIN: As above. NEUROLOGIC: Nonfocal. Assessment/Plan Problem List: (1) Hemarthrosis Status: Acute Plan: -- Per radiology, CT left knee approximately slightly worse than prior image. -- On FEIBA and NovoSeven every 12 hours with doses alternating every 6 hours. -- There has been a significant drop in his hemoglobin, baseline hemoglobin is 13-14 g/dL, hemoglobin at the time of presentation was 11 g/dL. 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 Interestingly, repeat inhibitor titers for November 2016 indicated no evidence of inhibitor. (3) Bacteremia Status: Acute Plan: -- Pt was seen in the ER for non-functioning PICC line -- Cultures grew back gram positive rods -- He was called back for admission for IV Abx -- ID following -- Currently on Vanco and Meropenem. Assessment 26-year-old male with hemophilia A admitted for hemarthrosis of the left knee Plan 1. Severe hemophilia a associated with high levels of circulating inhibitor: Continue factors at current dose; with fever and NovoSeven for the time being. 2. Monitor CBC; hemoglobin below his baseline indicating recent bleeding. Continue monitoring. 3. Bacteremia: Await further characterization of the bacteria; found to have Escherichia coli; ESLB positive on ertepenem. He did have sepsis last month and was admitted to the hospital for prolonged period time, during that hospitalization his port was removed. It'll be interesting to determine whether the same bacteria persist which would indicate possible seeding of the hemarthrosis. Should these organisms be distinct from the organisms associated with a previous bacteremia I suspect the patient may be using his IV access and appropriately. I will have to have a joesph discussion with him regarding appropriate hygiene for using his intravascular access, and specifically regarding usage of intravascular access for factor infusions only. Leno Adam MD Jan 27, 2017 09:37
[2017-01-27] MEDS: ERTAPENEM INJ 1,000 MG in SODIUM CHLORIDE 0.9% INJ 100 ML IV SCH (16:46)
--- NOTE | 2017-01-27 17:22 | HHI.PR ---
Subjective Remarks complain of knee pain and swelling no fever or chills, nausea or vomiting states + good BM no cough, denies any urinary symptoms Objective Vitals Vital Signs Date Time Temp Pulse Resp B/P Pulse Ox O2 Delivery O2 Flow Rate FiO2 01/27/17 13:30 104 01/27/17 11:50 97.4 103 20 99/64 98 01/27/17 07:50 97.6 92 20 118/72 98 01/27/17 07:22 16 01/27/17 04:13 18 01/27/17 00:00 97.1 81 18 106/53 98 01/26/17 21:41 82 01/26/17 21:09 16 01/26/17 20:00 97.4 92 18 108/70 100 I/O 01/26/17 01/26/17 01/26/17 01/27/17 01/27/17 01/27/17 07:00 15:00 23:00 07:00 15:00 23:00 Intake Total 2600 ml 960 ml 720 ml 720 ml Output Total 2000 ml 700 ml 800 ml 1200 ml Balance 600 ml 260 ml -80 ml -480 ml Intake Oral 2600 ml 960 ml 720 ml 720 ml Output Urine Total 2000 ml 700 ml 800 ml 1200 ml # Bowel Movements 0 0 0 Result Diagram: 01/27/17 0512 01/25/17 0906 Imaging Last Impressions Lower Extremity Ultrasound 01/24/17 0000 Signed Impressions: Service Date/Time: Tuesday, January 24, 2017 17:55 - CONCLUSION: No DVT. Ulysses Snowden MD Lower Extremity CT 01/24/17 0000 Signed Impressions: Service Date/Time: Tuesday, January 24, 2017 11:08 - CONCLUSION: Stable examination with osteoarthritis, postsurgical changes and effusion. Irwin Prieto MD Objective Remarks anicteric lungs no rales or wheezes regular rhythm abdomen soft, good bowel sounds extremities- left knee with effusion, tender + pedal edema A/P Problem List: (1) Sepsis ICD Code: A41.9 Status: Resolved (2) Bacteremia ICD Code: R78.81 Status: Acute (3) Left knee pain ICD Code: M25.562 Status: Acute (4) Leukocytosis ICD Code: D72.829 Status: Acute (5) Hypokalemia ICD Code: E87.6 Status: Acute (6) Hemarthrosis ICD Code: M25.00 Status: Acute (7) Right calf pain ICD Code: M79.661 Status: Acute Assessment and Plan 26 years old with Hemophilia Sepsis E coli ESBL secondary to PICC line infection. ID ff. PICC line removed 01/25, On Ertapenem and Vanco. Left knee pain secondary to hemarthrosis with history of hemophilia. ? infected as source of sepsis Continue pain control with home medications and as needed IV Dilaudid. Counseled regarding narcotics. Hemophilia - Hematology ff - on Feiba and decrease NovoSeven Right calf pain Doppler of the right lower extremity negative for DVT. Will hold SCDs from the right lower extremity. Hypokalemia. Improved Status post replacement. Continue to monitor BMP. GI prophylaxis: Place on PPI. 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 Consult physical therapy Discharge Planning Not stable for discharge Problem Qualifiers (1) Sepsis: Qualified Code: A41.9 - Sepsis, due to unspecified organism (2) Left knee pain: Qualified Code: M25.562 - Acute pain of left knee (3) Leukocytosis: Qualified Code: D72.829 - Leukocytosis, unspecified type Nicolás Green MD Jan 27, 2017 17:22 Nicolás Green MD Jan 27, 2017 17:22
[2017-01-27] MEDS: VANCOMYCIN INJ 1,750 MG in SODIUM CHLORID 0.9% 500 ML INJ 500 ML IV SCH (18:41)
[2017-01-28] VITALS (9 sets, daily range): BP systolic 102–121; BP diastolic 59–75; PULSE 69–92; RESP 16–20; TEMP 96.5–98.1; O2SAT 97–100
[2017-01-28] MEDS: [UNRECOGNIZED DRUG - OTHER] IV SCH ×3 (00:24→21:46)
[2017-01-28] MEDS: HYDROmorphone HCL PF 2 MG/ML VIAL IV PUSH PRN ×4 (00:54→06:56)
[2017-01-28] MEDS: NICOTINE 4 MG/GUM CHEW PRN ×9 (01:01→21:47)
[2017-01-28] MEDS: VANCOMYCIN INJ 1,750 MG in SODIUM CHLORID 0.9% 500 ML INJ 500 ML IV SCH ×3 (02:33→17:45)
[2017-01-28] MEDS: [UNRECOGNIZED DRUG - OTHER] IV SCH ×2 (04:18→14:57)
[2017-01-28] MEDS: ALPRAZolam 0.5 MG TAB PO SCH ×3 (06:33→21:45)
[2017-01-28 07:15] LABS: AUTOMATED NEUTROPHIL # 3.7 TH/MM3 (1.8-7.7); BASOPHIL % 0.5 % (0.0-2.0); EOSINOPHIL # 0.5 TH/MM3 (0-0.4); EOSINOPHIL % 7.5 % (0.0-4.0); HEMATOCRIT 34.8 % (39.0-51.0); HEMO FLAGS DIFF FINAL; LYMPH % 34.1 % (9.0-44.0); LYMPHOCYTE # 2.5 TH/MM3 (1.0-4.8); MEAN CELL VOLUME 78.3 FL (80.0-100.0); MEAN CORPUSCULAR HEMOGLOBIN 25.3 PG (27.0-34.0); MEAN CORPUSCULAR HGB CONC 32.3 % (32.0-36.0); MONO % 7.2 % (0.0-8.0); NEUT % 50.7 % (16.0-70.0); PLATELET COUNT 185 TH/MM3 (150-450); RED BLOOD COUNT 4.44 MIL/MM3 (4.50-5.90); RED CELL DISTRIBUTION WIDTH 18.7 % (11.6-17.2); WHITE BLOOD COUNT 7.3 TH/MM3 (4.0-11.0)
--- NOTE | 2017-01-28 08:23 | PD.ONC.PN ---
Subjective Subjective Remarks Reports continued pain, swelling of the lower extremities, particularly the right ankle and right lower leg as well as the left knee. Continues have chills. Has constant nausea, decreased appetite. Also reports metallic taste in the mouth. Objective Data Date Time Temp Pulse Resp B/P Pulse Ox O2 Delivery O2 Flow Rate FiO2 01/28/17 07:49 69 01/28/17 05:25 16 01/28/17 05:25 16 01/28/17 04:00 98.1 87 18 121/75 99 01/27/17 22:00 96.4 84 18 132/77 98 01/27/17 21:31 16 01/27/17 20:52 80 01/27/17 15:50 97.9 95 20 129/69 97 01/27/17 13:30 104 01/27/17 11:50 97.4 103 20 99/64 98 Result Diagram: 01/28/17 0559 01/28/17 0559 Laboratory Results Laboratory Tests Test 01/27/17 01/28/17 11:00 05:59 Vancomycin Level Trough 9.8 MCG/ML White Blood Count 7.3 TH/MM3 Red Blood Count 4.44 MIL/MM3 Hemoglobin 11.2 GM/DL Hematocrit 34.8 % Mean Corpuscular Volume 78.3 FL Mean Corpuscular Hemoglobin 25.3 PG Mean Corpuscular Hemoglobin 32.3 % Concent Red Cell Distribution Width 18.7 % Platelet Count 185 TH/MM3 Mean Platelet Volume 7.4 FL Neutrophils (%) (Auto) 50.7 % Lymphocytes (%) (Auto) 34.1 % Monocytes (%) (Auto) 7.2 % Eosinophils (%) (Auto) 7.5 % Basophils (%) (Auto) 0.5 % Neutrophils # (Auto) 3.7 TH/MM3 Lymphocytes # (Auto) 2.5 TH/MM3 Monocytes # (Auto) 0.5 TH/MM3 Eosinophils # (Auto) 0.5 TH/MM3 Basophils # (Auto) 0.0 TH/MM3 CBC Comment DIFF FINAL Differential Comment Creatinine 0.46 MG/DL Estimat Glomerular Filtration 223 ML/MIN Rate Culture Results Microbiology Date/Time Procedure Status Source Growth 01/26/17 07:50 Aerobic Blood Culture - Preliminary Resulted Blood Peripheral NO GROWTH IN 1 DAY 01/26/17 07:50 Anaerobic Blood Culture - Preliminary Resulted Blood Peripheral NO GROWTH IN 1 DAY 01/26/17 07:55 Aerobic Blood Culture - Preliminary Resulted Blood Peripheral NO GROWTH IN 1 DAY 01/26/17 07:55 Anaerobic Blood Culture - Preliminary Resulted Blood Peripheral NO GROWTH IN 1 DAY Administered Medications Medications (Trade) Dose Ordered Sig/Mike Route PRN Reason Start Time Stop Time Status Last Admin Dose Admin Sodium Chloride (NS Flush) 2 ml BID IV FLUSH 01/24/17 09:00 01/27/17 20:48 Alprazolam (Xanax) 0.5 mg Q8HR PO 01/24/17 06:00 01/28/17 06:33 Morphine Sulfate (Oramorph Sr) 60 mg Q12HR PO 01/24/17 00:45 01/27/17 20:31 Nicotine 4 mg 4 mg Q1H PRN CHEW ANXIETY 01/24/17 10:45 01/28/17 06:56 Ertapenem/Sodium Chloride (INVanz INJ/NS Inj) 100 ml @ 200 mls/hr Q24H IV 01/26/17 15:00 01/27/17 16:46 Patient Own Medication FEIBA 7500 UNITS DOSE: For IV injection... Q8H IV 01/26/17 16:00 01/28/17 00:24 Patient Own Medication PT OWN MED: NOVOSE... Q8H IV 01/26/17 20:00 01/28/17 04:18 Vancomycin HCl/ Sodium Chloride (Vancomycin Inj/ NS 500 ml Inj) 517.5 ml @ 250 mls/hr Q8H IV 01/27/17 18:00 01/28/17 02:33 Objective Remarks GENERAL: Young man, sitting up in bed, awake and alert. Alert and oriented 3 , he is in pain but does not seem to be in excruciating pain. HEENT: Atraumatic, normocephalic. Pupils equal, round and reactive light. Extraocular muscles intact. No scleral icterus. Oropharynx - dry mucosa, no lesion, no thrush, no mucositis. NECK: No thyromegaly. No palpable mass. LYMPHATICS: No palpable cervical, clavicular, axillary or inguinal lymph nodes. CARDIOVASCULAR: Regular S1 and S2. No murmur. LUNGS: Clear to auscultation bilaterally. No wheezing or rhonchi. ABDOMEN: Soft, nontender. I could not palpate the liver or spleen. EXTREMITIES: The left knee is swollen but no increased warmth, I do not see ecchymosis. No calf tenderness. Edema bilateral lower extremities including the ankles. More severe on the right side as opposed to left. SKIN: As above. NEUROLOGIC: Nonfocal. Assessment/Plan Problem List: (1) Hemarthrosis Status: Acute Plan: -- Per radiology, CT left knee approximately slightly worse than prior image. -- On FEIBA and NovoSeven every 12 hours with doses alternating every 6 hours. -- There has been a significant drop in his hemoglobin, baseline hemoglobin is 13-14 g/dL, hemoglobin at the time of presentation was 11 g/dL. 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 Interestingly, repeat inhibitor titers for November 2016 indicated no evidence of inhibitor. (3) Bacteremia Status: Acute Plan: -- Pt was seen in the ER for non-functioning PICC line -- Cultures grew back gram positive rods -- He was called back for admission for IV Abx -- ID following -- Currently on Vanco and Meropenem. Assessment 26-year-old male with hemophilia A admitted for hemarthrosis of the left knee Plan 1. 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 He will receive 2 doses of each formulation over a 24-hour period. 2. Monitor CBC; hemoglobin below his baseline indicating recent bleeding. Continue monitoring. 3. Bacteremia: Found to have Escherichia coli; ESLB positive on ertepenem/ vancomycin. He did have sepsis last month and was admitted to the hospital for prolonged period time, during that hospitalization his port was removed. It'll be interesting to determine whether the same bacteria persist which would indicate possible seeding of the hemarthrosis. Leno Adam MD Jan 28, 2017 08:23
[2017-01-28] MEDS: SODIUM CHLORIDE 0.9% FLUSH 10 ML FLUSH IV FLUSH SCH ×2 (09:00→21:00)
[2017-01-28] MEDS ORDERED: ANTI-INHIBITOR COAGULANT COMPLEX 100 UNIT INJ IV SCH (09:00)
[2017-01-28] MEDS: DOCUSATE SODIUM 50 MG/SENNA 8.6 MG TAB PO SCH ×2 (09:37→21:46)
[2017-01-28] MEDS: MORPHINE SULFATE 60 MG CONTROLLED RELEASE TAB PO SCH ×2 (09:37→21:45)
--- NOTE | 2017-01-28 10:52 | HHI.IDPN ---
Subjective Subjective Remarks is a 26 y/o CM with past medical history of hemophilia requiring factor as well as blood transfusions. He has been on factor replacement therapy for many years using a port area and upon review of medical records it appears that he's had several Zkeyoh-v-Cudd infections and has had 2 ports removed because of infections most notably the one in November 2016 as well. During that admission patient had multiple organisms growing from his blood cultures suspicious of tampering of his lines. During his last admission he was also suspected to have multiple joints with septic arthritis although this could not be confirmed due to his hemarthrosis and ongoing factor deficiency issues. Patient was empirically treated for those multiple organisms including Achromobacter and Stenotrophomonas with IV antibiotics while in the hospital and subsequently discharged on oral Levaquin with a stop date of February 02, 2017. Patient also grew Shira glabrata and receive micafungin IV while in the hospital. Upon discharge patient needed a PICC line placement for his factor infusions from a hematological standpoint. It appears that patient was in the emergency room on January 19 for what appears to be occluded PICC line. Blood cultures drawn at that time were positive for strep viridans. The patient was then called back to present to the hospital for admission. The patient complains of chills and feeling very cold, states has not had fevers but does not feel well. The patient also complains of increased left knee pain for the past couple days and pain in the right calf associated with small ecchymotic region. On admission patient had leucocytosis and tachycardia mild with positive blood cultures on 01/19/17 (strep viridans) and 01/23/17 (E.coli ? ESBL). Blood cultures drawn on admission on January 23 are positive for Escherichia coli with CTX M marker positive suspicious for ESBL. ID is consulted for evaluation and Mment of E.coli bacteremia likely PICC line related. Overnight events reviewed. Patient very somnolent but when awakened and kept asking for more pain medication. No fevers no rash No diarrhea Complains of left knee as well as right ankle swelling and pain. Right ankle pain is signficant and swelling as well. Antibiotics Meropenem IV Vancomycin IV Lines Line sites with no evidence of infection. Past Medical History Reviewed. Allergies: Coded Allergies: Nonsteroidal Anti-Inflammatory Agts (Verified Adverse Reaction, Severe, bleeding, 01/19/17) *MDRO Multi-Drug Resistant Organism (Verified Adverse Reaction, Unknown, ) ESBL E. coli Blood 01/23/17 Objective . Vital Signs Date Time Temp Pulse Resp B/P Pulse Ox O2 Delivery O2 Flow Rate FiO2 01/28/17 07:49 69 01/28/17 07:00 96.5 86 20 115/68 99 01/28/17 05:25 16 01/28/17 05:25 16 01/28/17 04:00 98.1 87 18 121/75 99 01/27/17 22:00 96.4 84 18 132/77 98 01/27/17 21:31 16 01/27/17 20:52 80 01/27/17 15:50 97.9 95 20 129/69 97 01/27/17 13:30 104 01/27/17 11:50 97.4 103 20 99/64 98 01/27/17 01/27/17 01/28/17 15:00 23:00 07:00 Intake Total 480 ml Output Total 2450 ml Balance -1970 ml Intake Oral 480 ml Output Urine Total 2450 ml # Bowel Movements 0 . Laboratory Tests Test 01/27/17 01/28/17 05:12 05:59 White Blood Count 6.8 TH/MM3 7.3 TH/MM3 Red Blood Count 4.11 MIL/MM3 4.44 MIL/MM3 Hemoglobin 10.6 GM/DL 11.2 GM/DL Hematocrit 32.3 % 34.8 % Mean Corpuscular Volume 78.6 FL 78.3 FL Mean Corpuscular Hemoglobin 25.8 PG 25.3 PG Mean Corpuscular Hemoglobin 32.8 % 32.3 % Concent Red Cell Distribution Width 18.4 % 18.7 % Platelet Count 237 TH/MM3 185 TH/MM3 Mean Platelet Volume 7.8 FL 7.4 FL Neutrophils (%) (Auto) 44.3 % 50.7 % Lymphocytes (%) (Auto) 37.0 % 34.1 % Monocytes (%) (Auto) 9.0 % 7.2 % Eosinophils (%) (Auto) 9.2 % 7.5 % Basophils (%) (Auto) 0.5 % 0.5 % Neutrophils # (Auto) 3.0 TH/MM3 3.7 TH/MM3 Lymphocytes # (Auto) 2.5 TH/MM3 2.5 TH/MM3 Monocytes # (Auto) 0.6 TH/MM3 0.5 TH/MM3 Eosinophils # (Auto) 0.6 TH/MM3 0.5 TH/MM3 Basophils # (Auto) 0.0 TH/MM3 0.0 TH/MM3 CBC Comment DIFF FINAL DIFF FINAL Differential Comment Laboratory Tests Test 01/28/17 05:59 Creatinine 0.46 MG/DL Estimat Glomerular Filtration 223 ML/MIN Rate Microbiology Date/Time Procedure Status Source Growth 01/26/17 07:50 Aerobic Blood Culture - Preliminary Resulted Blood Peripheral NO GROWTH IN 1 DAY 01/26/17 07:50 Anaerobic Blood Culture - Preliminary Resulted Blood Peripheral NO GROWTH IN 1 DAY 01/26/17 07:55 Aerobic Blood Culture - Preliminary Resulted Blood Peripheral NO GROWTH IN 1 DAY 01/26/17 07:55 Anaerobic Blood Culture - Preliminary Resulted Blood Peripheral NO GROWTH IN 1 DAY Imaging Last Impressions Lower Extremity Ultrasound 01/24/17 0000 Signed Impressions: Service Date/Time: Tuesday, January 24, 2017 17:55 - CONCLUSION: No DVT. Ulysses Snowden MD Lower Extremity CT 01/24/17 0000 Signed Impressions: Service Date/Time: Tuesday, January 24, 2017 11:08 - CONCLUSION: Stable examination with osteoarthritis, postsurgical changes and effusion. Irwin Prieto MD Physical Exam GENERAL: This is a well-nourished, well-developed patient, in no apparent distress. SKIN: No rashes, ecchymoses or lesions. Cool and dry. HEAD: Atraumatic. Normocephalic. No temporal or scalp tenderness. EYES: Pupils equal round and reactive. Extraocular motions intact. No scleral icterus. No injection or drainage. ENT: Nose without bleeding, purulent drainage or septal hematoma. Throat without erythema, tonsillar hypertrophy or exudate. Uvula midline. Airway patent. NECK: Trachea midline. Supple, nontender, no meningeal signs. CARDIOVASCULAR: RRR RESPIRATORY: Clear to auscultation. Breath sounds equal bilaterally. No wheezes , rales, or rhonchi. GASTROINTESTINAL: Abdomen soft, non-tender, nondistended. MUSCULOSKELETAL: Left knee with surgical scar. Appears to be swollen to some extent but no erythema and no warmth noted. Right ankle with significant swelling but no warmth or redness noted. NEUROLOGICAL: Awake and alert. Grossly non focal Psych: cooperative PICC line site with no e/o infection. Assessment & Plan Remarks Sepsis present on admission (leucocytosis, tachycardia, subjective fevers, Strep and E.coli bacteremia) Strep viridans and lactobacillus bacteremia (01/23/2017 ED visit) ESBL Escherichia coli bacteremia Hemophilia PICC line in place likely source of infection. Suspect patient hygiene or tampering of device. Recs: Continue Ertapenem IV (ASP: ESBL E.coli actually anemia; expect a 2 week course if repeat blood cultures negative. ). Continue Vanco IV (Strep viridans and Lactobacillus bacteremia, expect a 2 week course if repeat blood cultures negative.) d/w RN D.w Patient If bacteremia transient and controlled after PICC line removal will hopefully need 2 weeks. Will follow cultures to decide. Rosy Hoyt MD Jan 28, 2017 10:52
[2017-01-28] MEDS: HYDROmorphone HCL PF 2 MG/ML VIAL IV PRN ×4 (12:24→21:45)
[2017-01-28] MEDS: ERTAPENEM INJ 1,000 MG in SODIUM CHLORIDE 0.9% INJ 100 ML IV SCH (14:58)
[2017-01-28] MEDS ORDERED: FACTOR VIIA (RECOMB) 5 MG VIAL IV PUSH SCH (15:00)
--- NOTE | 2017-01-28 19:24 | HHI.PR ---
Subjective Remarks complains of pain - more of the right ankle denies any melena or hematochezia Objective Vitals Vital Signs Date Time Temp Pulse Resp B/P Pulse Ox O2 Delivery O2 Flow Rate FiO2 01/28/17 16:25 87 01/28/17 15:50 96.7 83 20 104/59 97 01/28/17 12:00 91 01/28/17 11:50 97.0 92 20 108/62 98 01/28/17 07:49 69 01/28/17 07:00 96.5 86 20 115/68 99 01/28/17 05:25 16 01/28/17 05:25 16 01/28/17 04:00 98.1 87 18 121/75 99 01/27/17 22:00 96.4 84 18 132/77 98 01/27/17 21:31 16 01/27/17 20:52 80 I/O 01/27/17 01/27/17 01/27/17 01/28/17 01/28/17 01/28/17 07:00 15:00 23:00 07:00 15:00 23:00 Intake Total 720 ml 480 ml 840 ml 1085 ml Output Total 1200 ml 2450 ml 500 ml 2200 ml Balance -480 ml -1970 ml 340 ml -1115 ml Intake Oral 720 ml 480 ml 840 ml IV Total 1085 ml Output Urine Total 1200 ml 2450 ml 500 ml 2200 ml # Bowel Movements 0 0 0 Result Diagram: 01/28/17 0559 01/28/17 0559 Imaging Last Impressions Lower Extremity Ultrasound 01/24/17 0000 Signed Impressions: Service Date/Time: Tuesday, January 24, 2017 17:55 - CONCLUSION: No DVT. Ulysses Snowden MD Lower Extremity CT 01/24/17 0000 Signed Impressions: Service Date/Time: Tuesday, January 24, 2017 11:08 - CONCLUSION: Stable examination with osteoarthritis, postsurgical changes and effusion. Irwin Prieto MD Objective Remarks anicteric lungs no rales or wheezes regular rhythm abdomen soft, good bowel sounds extremities- left knee with effusion, slightly tender right ankle/foot swelling. ++ pulses A/P Problem List: (1) Sepsis ICD Code: A41.9 Status: Resolved (2) Bacteremia ICD Code: R78.81 Status: Acute (3) Left knee pain ICD Code: M25.562 Status: Acute (4) Leukocytosis ICD Code: D72.829 Status: Acute (5) Hypokalemia ICD Code: E87.6 Status: Acute (6) Hemarthrosis ICD Code: M25.00 Status: Acute (7) Right calf pain ICD Code: M79.661 Status: Acute Assessment and Plan 26 years old with Hemophilia Sepsis E coli ESBL secondary to PICC line infection. ID ff. PICC line removed 01/25, On Ertapenem and Vanco. -ID ff closely along with us Hemophilia - Hematology ff - Left knee pain secondary to hemarthrosis with history of hemophilia. Continue pain control with home medications and as needed IV Dilaudid. Counseled regarding narcotics. Hematology adjusting pain meds Right calf pain Doppler of the right lower extremity negative for DVT. Will hold SCDs from the right lower extremity. Hypokalemia. Improved Status post replacement. Continue to monitor BMP. 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 Physical therapy as patient tolerates Discharge Planning Not stable for discharge Problem Qualifiers (1) Sepsis: Qualified Code: A41.9 - Sepsis, due to unspecified organism (2) Left knee pain: Qualified Code: M25.562 - Acute pain of left knee (3) Leukocytosis: Qualified Code: D72.829 - Leukocytosis, unspecified type Nicolás Green MD Jan 28, 2017 19:24
[2017-01-29] VITALS (7 sets, daily range): BP systolic 105–130; BP diastolic 60–82; PULSE 80–92; RESP 14–18; TEMP 97.1–98.7; O2SAT 93–99
[2017-01-29] MEDS: HYDROmorphone HCL PF 2 MG/ML VIAL IV PRN ×8 (00:42→22:19)
[2017-01-29] MEDS: NICOTINE 4 MG/GUM CHEW PRN ×11 (00:42→22:18)
[2017-01-29] MEDS ORDERED: PHARMACY ORDERED LAB ONE (01:45)
[2017-01-29] MEDS: VANCOMYCIN INJ 1,750 MG in SODIUM CHLORID 0.9% 500 ML INJ 500 ML IV SCH ×3 (02:58→18:19)
[2017-01-29 03:01] LABS: AUTOMATED NEUTROPHIL # 4.4 TH/MM3 (1.8-7.7); BASOPHIL # 0.1 TH/MM3 (0-0.2); BASOPHIL % 0.7 % (0.0-2.0); EOSINOPHIL # 0.5 TH/MM3 (0-0.4); EOSINOPHIL % 6.4 % (0.0-4.0); HEMATOCRIT 34.5 % (39.0-51.0); HEMO FLAGS DIFF FINAL; LYMPH % 32.2 % (9.0-44.0); LYMPHOCYTE # 2.6 TH/MM3 (1.0-4.8); MEAN CELL VOLUME 78.5 FL (80.0-100.0); MEAN CORPUSCULAR HEMOGLOBIN 25.6 PG (27.0-34.0); MEAN CORPUSCULAR HGB CONC 32.5 % (32.0-36.0); MONO % 5.5 % (0.0-8.0); NEUT % 55.2 % (16.0-70.0); PLATELET COUNT 153 TH/MM3 (150-450); RED CELL DISTRIBUTION WIDTH 18.7 % (11.6-17.2)
[2017-01-29] MEDS: [UNRECOGNIZED DRUG - OTHER] IV SCH ×2 (03:41→14:46)
[2017-01-29] MEDS: ALPRAZolam 0.5 MG TAB PO SCH ×3 (06:23→22:18)
[2017-01-29] MEDS: DOCUSATE SODIUM 50 MG/SENNA 8.6 MG TAB PO SCH ×2 (09:00→19:27)
[2017-01-29] MEDS: MORPHINE SULFATE 60 MG CONTROLLED RELEASE TAB PO SCH ×2 (09:27→19:28)
[2017-01-29] MEDS: [UNRECOGNIZED DRUG - OTHER] IV SCH ×2 (09:28→22:19)
[2017-01-29] MEDS: SODIUM CHLORIDE 0.9% FLUSH 10 ML FLUSH IV FLUSH SCH ×2 (09:29→21:00)
--- NOTE | 2017-01-29 14:13 | HHI.PR ---
Subjective Remarks Follow up for hemarthrosis, bacteremia in a patient with a history of hemophilia A. Patient is currently doing well. He has persistent pain on his right ankle and left knee. No fever, chills. Objective Vitals Vital Signs Date Time Temp Pulse Resp B/P Pulse Ox O2 Delivery O2 Flow Rate FiO2 01/29/17 12:00 97.7 85 16 130/70 98 01/29/17 08:00 97.8 86 16 126/77 93 01/29/17 04:19 16 01/29/17 04:00 97.1 89 16 106/60 99 01/29/17 02:41 16 01/29/17 00:30 98.7 92 18 124/69 98 01/28/17 22:15 16 01/28/17 22:07 80 01/28/17 21:00 97.0 82 16 102/59 100 01/28/17 16:25 87 01/28/17 15:50 96.7 83 20 104/59 97 I/O 01/28/17 01/28/17 01/28/17 01/29/17 01/29/17 01/29/17 07:00 15:00 23:00 07:00 15:00 23:00 Intake Total 720 ml 840 ml 1805 ml Output Total 1400 ml 500 ml 3400 ml 1850 ml Balance -680 ml 340 ml -1595 ml -1850 ml Intake Oral 720 ml 840 ml 720 ml IV Total 1085 ml Output Urine Total 1400 ml 500 ml 3400 ml 1850 ml # Bowel Movements 0 Result Diagram: 01/29/17 0239 01/28/17 0559 Imaging Last Impressions Lower Extremity Ultrasound 01/24/17 0000 Signed Impressions: Service Date/Time: Tuesday, January 24, 2017 17:55 - CONCLUSION: No DVT. Ulysses Snowden MD Lower Extremity CT 01/24/17 0000 Signed Impressions: Service Date/Time: Tuesday, January 24, 2017 11:08 - CONCLUSION: Stable examination with osteoarthritis, postsurgical changes and effusion. Irwin Prieto MD Objective Remarks GENERAL: AOX3, NAD. SKIN: Warm and dry. HEAD: Normocephalic. EYES: No scleral icterus. No injection or drainage. NECK: Supple, trachea midline. No JVD or lymphadenopathy. CARDIOVASCULAR: Regular rate and rhythm without murmurs, gallops, or rubs. RESPIRATORY: Breath sounds equal bilaterally. No accessory muscle use. GASTROINTESTINAL: Abdomen soft, non-tender, nondistended. MUSCULOSKELETAL: No cyanosis. Right ankle swollen and tender to palpation. Left knee swollen and tender to palpation. BACK: Nontender without obvious deformity. No CVA tenderness. Procedures None. A/P Problem List: (1) Sepsis ICD Code: A41.9 Status: Resolved (2) Bacteremia ICD Code: R78.81 Status: Acute (3) Left knee pain ICD Code: M25.562 Status: Acute (4) Leukocytosis ICD Code: D72.829 Status: Acute (5) Hypokalemia ICD Code: E87.6 Status: Acute (6) Hemarthrosis ICD Code: M25.00 Status: Acute (7) Right calf pain ICD Code: M79.661 Status: Acute Assessment and Plan Mr. Gonzalez is a 26 year old male with a history of hemophilia A who was called back to the hospital due to positive blood cultures which showed Strep Viridans. Patient has been on factor replacement therapy and has had several [id number] infections. In November 2016 blood cultures grew multiple organisms indicating possible tampering of his lines. Patient came to the ED on January 19 to the ED due to occluded PICC line. Culture from this ED visit shows Strep Viridans. He complained of chills and feeling very cold. He complained of left knee pain as well as painful right calf. - Sepsis with ESBL E. Coli and Strep - Strep Viridans and Lactobacillus bacteremia - ESBL E. Coli bacteremia - ID is following. Continue Ertapenem IV and Vancomycin IV. - Once PICC line is removed and bacteremia clears, patient will likely need two weeks of Abx per ID. - Blood cultures negative from 01/26/2017. - Hemophilia A - Hemarthrosis of the left knee and right ankle. - Hematology is following. Continue Anti-inhibitor coagulant complex (Feiba) and Factor VIIA recomb (NovoSeven) - H&H stable at this point. Hgb 11.2, Hct 34.5. - Currently on Dilaudid 2mg IV Q3hrs for Breakthrough pain. - Oxycodone 30mg Q4hrs for pain 1-10. Also on Morphine 60mg Q12hrs Scheduled. - Will consider reducing opioid medications. - Anxiety - Currently on Xanax 0.5mg Q8hrs. - Hypokalemia - K+ 2.9 --> 4.0. Resolved. Full code. Ambulation. Problem Qualifiers (1) Sepsis: Qualified Code: A41.9 - Sepsis, due to unspecified organism (2) Left knee pain: Qualified Code: M25.562 - Acute pain of left knee (3) Leukocytosis: Qualified Code: D72.829 - Leukocytosis, unspecified type Tayla Cardona DO Jan 29, 2017 14:13
[2017-01-29] MEDS: ERTAPENEM INJ 1,000 MG in SODIUM CHLORIDE 0.9% INJ 100 ML IV SCH (14:44)
--- NOTE | 2017-01-29 19:07 | PD.ONC.PN ---
Subjective Subjective Remarks Patient seen and examined, vital signs, medications, blood work including microbiology reviewed. Blood cultures indicate multiple cultures positive for Escherichia coli; ESBL positive. He remains afebrile. He remains on antibiotics and bxopwv-[id number] factor replacement. Subjectively: He reports improvement in the pain in his left knee, improvement in swelling of his right ankle and right calf as well. He tells me he is keeping his right leg elevated. He is eager to know the course of action and possible discharge planning as well. Objective Data Date Time Temp Pulse Resp B/P Pulse Ox O2 Delivery O2 Flow Rate FiO2 01/29/17 16:00 97.4 85 14 125/82 98 01/29/17 12:00 97.7 85 16 130/70 98 01/29/17 08:00 97.8 86 16 126/77 93 01/29/17 04:19 16 01/29/17 04:00 97.1 89 16 106/60 99 01/29/17 02:41 16 01/29/17 00:30 98.7 92 18 124/69 98 01/28/17 22:15 16 01/28/17 22:07 80 01/28/17 21:00 97.0 82 16 102/59 100 01/29/17 01/29/17 01/29/17 07:00 15:00 23:00 Intake Total 820 ml Output Total 1850 ml 850 ml Balance -1850 ml -30 ml Result Diagram: 01/29/17 0239 01/28/17 0559 Laboratory Results Laboratory Tests Test 01/29/17 02:39 White Blood Count 8.0 TH/MM3 Red Blood Count 4.40 MIL/MM3 Hemoglobin 11.2 GM/DL Hematocrit 34.5 % Mean Corpuscular Volume 78.5 FL Mean Corpuscular Hemoglobin 25.6 PG Mean Corpuscular Hemoglobin 32.5 % Concent Red Cell Distribution Width 18.7 % Platelet Count 153 TH/MM3 Mean Platelet Volume 7.4 FL Neutrophils (%) (Auto) 55.2 % Lymphocytes (%) (Auto) 32.2 % Monocytes (%) (Auto) 5.5 % Eosinophils (%) (Auto) 6.4 % Basophils (%) (Auto) 0.7 % Neutrophils # (Auto) 4.4 TH/MM3 Lymphocytes # (Auto) 2.6 TH/MM3 Monocytes # (Auto) 0.4 TH/MM3 Eosinophils # (Auto) 0.5 TH/MM3 Basophils # (Auto) 0.1 TH/MM3 CBC Comment DIFF FINAL Differential Comment Vancomycin Level Trough 14.3 MCG/ML Administered Medications Medications (Trade) Dose Ordered Sig/Mike Route PRN Reason Start Time Stop Time Status Last Admin Dose Admin Sodium Chloride (NS Flush) 2 ml BID IV FLUSH 01/24/17 09:00 01/29/17 09:29 Senna/Docusate Sodium (Eklli-Colace) 1 tab BID PO 01/24/17 09:00 01/28/17 21:46 Alprazolam (Xanax) 0.5 mg Q8HR PO 01/24/17 06:00 01/29/17 14:44 Morphine Sulfate (Oramorph Sr) 60 mg Q12HR PO 01/24/17 00:45 01/29/17 09:27 Nicotine 4 mg 4 mg Q1H PRN CHEW ANXIETY 01/24/17 10:45 01/29/17 18:23 Ertapenem 1000 mg/ Sodium Chloride 100 ml @ 200 mls/hr Q24H IV 01/26/17 15:00 01/29/17 14:44 Vancomycin HCl/ Sodium Chloride (Vancomycin Inj/ NS 500 ml Inj) 517.5 ml @ 250 mls/hr Q8H IV 01/27/17 18:00 01/29/17 18:19 Hydromorphone HCl (Dilaudid Pf Inj) 2 mg Q3HR PRN IV BREAKTHROUGH PAIN 01/28/17 11:00 01/29/17 16:02 Oxycodone HCl (Roxicodone) 30 mg Q4H PRN PO PAIN 1-10 01/28/17 10:00 01/29/17 14:44 Patient Own Medication FEIBA 7500 UNITS DOSE: For IV injection... Q12H IV 01/28/17 21:00 01/29/17 09:28 Patient Own Medication PT OWN MED: NOVOSE... Q12H IV 01/28/17 15:00 01/29/17 14:46 Objective Remarks GENERAL: Young man, sitting up in bed, awake and alert. Alert and oriented 3 , he is in pain but does not seem to be in excruciating pain. HEENT: Atraumatic, normocephalic. Pupils equal, round and reactive light. Extraocular muscles intact. No scleral icterus. Oropharynx - dry mucosa, no lesion, no thrush, no mucositis. NECK: No thyromegaly. No palpable mass. LYMPHATICS: No palpable cervical, clavicular, axillary or inguinal lymph nodes. CARDIOVASCULAR: Regular S1 and S2. No murmur. LUNGS: Clear to auscultation bilaterally. No wheezing or rhonchi. ABDOMEN: Soft, nontender. I could not palpate the liver or spleen. EXTREMITIES: The left knee is swollen but no increased warmth, I do not see ecchymosis. No calf tenderness. Edema bilateral lower extremities including the ankles. More severe on the right side as opposed to left. SKIN: As above. NEUROLOGIC: Nonfocal. Assessment/Plan Problem List: (1) Hemarthrosis Status: Acute Plan: -- Per radiology, CT left knee approximately slightly worse than prior image. -- On FEIBA and NovoSeven every 12 hours with doses alternating every 6 hours. -- There has been a significant drop in his hemoglobin, baseline hemoglobin is 13-14 g/dL, hemoglobin at the time of presentation was 11 g/dL. 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 Interestingly, repeat inhibitor titers for November 2016 indicated no evidence of inhibitor. (3) Bacteremia Status: Acute Plan: -- Pt was seen in the ER for non-functioning PICC line -- Cultures grew back gram positive rods -- He was called back for admission for IV Abx -- ID following -- Currently on Vanco and Meropenem. Assessment 26-year-old male with hemophilia A admitted for hemarthrosis of the left knee Plan 1. 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 He will receive 2 doses of each formulation over a 24-hour period. 2. Monitor CBC; hemoglobin below his baseline indicating recent bleeding. Continue monitoring; no evidence of active bleeding at this time based on stable CBC. 3. Bacteremia: Found to have Escherichia coli; ESLB positive on ertepenem/ vancomycin. He did have sepsis last month and was admitted to the hospital for prolonged period time, during that hospitalization his port was removed. It'll be interesting to determine whether the same bacteria persist which would indicate possible seeding of the hemarthrosis. Disposition: Clinically he appears to be improving. He may be discharged home if outpatient arrangements for intravenous antibiotics per ID recommendations can be arranged through home health nursing. He will try to remain without IV opioid analgesics, this would also facilitate discharge. I would recommend discharge with peripheral IV access. Once he completes the recommended duration of IV antibiotics and remains afebrile we may consider outpatient placement of an infusion port. I would recommend against re-placing a PICC line because he tells me he has difficulty maintaining proper hygiene of the PICC line due to excessive sweating. Leno Adam MD Jan 29, 2017 19:07
[2017-01-30] VITALS (9 sets, daily range): BP systolic 100–130; BP diastolic 55–65; PULSE 72–93; RESP 16–18; TEMP 96.3–97.9; O2SAT 97–99
[2017-01-30] MEDS: NICOTINE 4 MG/GUM CHEW PRN ×10 (00:44→21:04)
[2017-01-30] MEDS: HYDROmorphone HCL PF 2 MG/ML VIAL IV PRN ×6 (01:47→21:04)
[2017-01-30] MEDS: VANCOMYCIN INJ 1,750 MG in SODIUM CHLORID 0.9% 500 ML INJ 500 ML IV SCH ×3 (01:50→16:52)
[2017-01-30] MEDS: [UNRECOGNIZED DRUG - OTHER] IV SCH ×2 (02:49→14:19)
[2017-01-30] MEDS: ALPRAZolam 0.5 MG TAB PO SCH ×3 (04:55→21:06)
[2017-01-30] MEDS: MORPHINE SULFATE 60 MG CONTROLLED RELEASE TAB PO SCH ×2 (08:58→19:46)
[2017-01-30] MEDS: DOCUSATE SODIUM 50 MG/SENNA 8.6 MG TAB PO SCH ×2 (08:58→19:47)
[2017-01-30] MEDS: SODIUM CHLORIDE 0.9% FLUSH 10 ML FLUSH IV FLUSH SCH ×2 (08:59→19:46)
--- NOTE | 2017-01-30 09:37 | HHI.PR ---
Subjective Remarks Follow up for hemarthrosis, bacteremia in a patient with a history of hemophilia A. Patient complains of significant pain around his right ankle and left knee. No fever, chills. He feels that he is still bleeding and thus cannot be discharged. Objective Vitals Vital Signs Date Time Temp Pulse Resp B/P Pulse Ox O2 Delivery O2 Flow Rate FiO2 01/30/17 08:00 97.9 87 16 104/58 97 01/30/17 05:38 16 01/30/17 04:00 97.3 85 16 100/64 99 01/30/17 03:43 16 01/30/17 00:00 97.5 93 16 111/65 98 01/29/17 20:00 98.2 91 16 105/61 99 01/29/17 19:59 16 01/29/17 19:41 80 01/29/17 16:00 97.4 85 14 125/82 98 01/29/17 12:00 97.7 85 16 130/70 98 I/O 01/29/17 01/29/17 01/29/17 01/30/17 01/30/17 01/30/17 07:00 15:00 23:00 07:00 15:00 23:00 Intake Total 820 ml 900 ml 1660 ml Output Total 1850 ml 850 ml 1500 ml 4250 ml Balance -1850 ml -30 ml -600 ml -2590 ml Intake Oral 820 ml 900 ml 1660 ml Output Urine Total 1850 ml 850 ml 1500 ml 4250 ml Stool Total 0 ml Result Diagram: 01/29/17 0239 01/30/17 0525 Imaging Last Impressions Lower Extremity Ultrasound 01/24/17 0000 Signed Impressions: Service Date/Time: Tuesday, January 24, 2017 17:55 - CONCLUSION: No DVT. Ulysses Snowden MD Lower Extremity CT 01/24/17 0000 Signed Impressions: Service Date/Time: Tuesday, January 24, 2017 11:08 - CONCLUSION: Stable examination with osteoarthritis, postsurgical changes and effusion. Irwin Prieto MD Objective Remarks GENERAL: AOX3, NAD. SKIN: Warm and dry. HEAD: Normocephalic. EYES: No scleral icterus. No injection or drainage. NECK: Supple, trachea midline. No JVD or lymphadenopathy. CARDIOVASCULAR: Regular rate and rhythm without murmurs, gallops, or rubs. RESPIRATORY: Breath sounds equal bilaterally. No accessory muscle use. GASTROINTESTINAL: Abdomen soft, non-tender, nondistended. MUSCULOSKELETAL: No cyanosis. Right ankle swollen and tender to palpation. Left knee swollen and tender to palpation. BACK: Nontender without obvious deformity. No CVA tenderness. Procedures None. A/P Problem List: (1) Sepsis ICD Code: A41.9 Status: Resolved (2) Bacteremia ICD Code: R78.81 Status: Acute (3) Left knee pain ICD Code: M25.562 Status: Acute (4) Leukocytosis ICD Code: D72.829 Status: Acute (5) Hypokalemia ICD Code: E87.6 Status: Acute (6) Hemarthrosis ICD Code: M25.00 Status: Acute (7) Right calf pain ICD Code: M79.661 Status: Acute Assessment and Plan Mr. Gonzalez is a 26 year old male with a history of hemophilia A who was called back to the hospital due to positive blood cultures which showed Strep Viridans. Patient has been on factor replacement therapy and has had several qahimg-h-Ssbs infections. In November 2016 blood cultures grew multiple organisms indicating possible tampering of his lines. Patient came to the ED on January 19 to the ED due to occluded PICC line. Culture from this ED visit shows Strep Viridans. He complained of chills and feeling very cold. He complained of left knee pain as well as painful right calf. - Sepsis with ESBL E. Coli and Strep - Strep Viridans and Lactobacillus bacteremia - ESBL E. Coli bacteremia - ID is following. Continue Ertapenem IV and Vancomycin IV. - Once PICC line is removed and bacteremia clears, patient will likely need two weeks of Abx per ID. - Blood cultures negative from 01/26/2017. - Discussed with ID. Patient will need IV abx for two weeks (Ertapenem and Vancomycin). Due to suspected PICC line abuse, we will not place a PICC line. - Discussed with CM - patient may need SNF placement or daily infusion at [facility]. - Hemophilia A - Hemarthrosis of the left knee and right ankle. - Hematology is following. Continue Anti-inhibitor coagulant complex (Feiba) and Factor VIIA recomb (NovoSeven) - H&H stable at this point. Hgb 11.2, Hct 34.5. - Currently on Dilaudid 2mg IV Q3hrs for Breakthrough pain. - Oxycodone 30mg Q4hrs for pain 1-10. Also on Morphine 60mg Q12hrs Scheduled. - Reduce Dilaudid from 2mg to 1mg Q3hrs for breakthrough. - Anxiety - Currently on Xanax 0.5mg Q8hrs. - Hypokalemia - K+ 2.9 --> 4.0. Resolved. Full code. Ambulation. Problem Qualifiers (1) Sepsis: Qualified Code: A41.9 - Sepsis, due to unspecified organism (2) Left knee pain: Qualified Code: M25.562 - Acute pain of left knee (3) Leukocytosis: Qualified Code: D72.829 - Leukocytosis, unspecified type Tayla Cardona DO Jan 30, 2017 9:37 am
[2017-01-30] MEDS: [UNRECOGNIZED DRUG - OTHER] IV SCH ×2 (10:25→20:33)
[2017-01-30] MEDS ORDERED: HYDROmorphone HCL PF 2 MG/ML VIAL IV PRN (12:00)
[2017-01-30] MEDS: ERTAPENEM INJ 1,000 MG in SODIUM CHLORIDE 0.9% INJ 100 ML IV SCH (14:19)
--- NOTE | 2017-01-30 19:28 | PD.ONC.PN ---
Subjective Subjective Remarks Patient seen and examined, he reports worsening pain in his right ankle, his range of motion is very limited, he is unable to bear weight and continues to have swelling. He denies fevers or chills. He has many questions regarding discharge planning specifically the matter of IV access. At present he requires ultrasound-guided placement of peripheral IVs as he cannot have central axis due to his bacteremia. He wants to know if ultrasound-guided peripheral IV access can be arranged as an outpatient. Objective Data Date Time Temp Pulse Resp B/P Pulse Ox O2 Delivery O2 Flow Rate FiO2 01/30/17 16:45 96.3 85 16 102/55 98 01/30/17 12:59 96.9 90 16 130/60 97 01/30/17 12:00 72 01/30/17 08:00 87 01/30/17 08:00 97.9 87 16 104/58 97 01/30/17 05:38 16 01/30/17 04:00 97.3 85 16 100/64 99 01/30/17 03:43 16 01/30/17 00:00 97.5 93 16 111/65 98 01/29/17 20:00 98.2 91 16 105/61 99 01/29/17 19:59 16 01/29/17 19:41 80 01/30/17 01/30/17 01/30/17 07:00 15:00 23:00 Intake Total 1660 ml 900 ml 240 ml Output Total 4250 ml 800 ml 800 ml Balance -2590 ml 100 ml -560 ml Result Diagram: 01/29/17 0239 01/30/17 0525 Laboratory Results Laboratory Tests Test 01/30/17 05:25 Creatinine 0.40 MG/DL Estimat Glomerular Filtration 262 ML/MIN Rate Administered Medications Medications (Trade) Dose Ordered Sig/Mike Route PRN Reason Start Time Stop Time Status Last Admin Dose Admin Sodium Chloride (NS Flush) 2 ml BID IV FLUSH 01/24/17 09:00 01/30/17 08:59 Senna/Docusate Sodium (Kelli-Colace) 1 tab BID PO 01/24/17 09:00 01/30/17 08:58 Alprazolam (Xanax) 0.5 mg Q8HR PO 01/24/17 06:00 01/30/17 14:20 Morphine Sulfate (Oramorph Sr) 60 mg Q12HR PO 01/24/17 00:45 01/30/17 08:58 Nicotine 4 mg 4 mg Q1H PRN CHEW ANXIETY 01/24/17 10:45 01/30/17 18:17 Ertapenem 1000 mg/ Sodium Chloride 100 ml @ 200 mls/hr Q24H IV 01/26/17 15:00 01/30/17 14:19 Vancomycin HCl/ Sodium Chloride (Vancomycin Inj/ NS 500 ml Inj) 517.5 ml @ 250 mls/hr Q8H IV 01/27/17 18:00 01/30/17 16:52 Oxycodone HCl (Roxicodone) 30 mg Q4H PRN PO PAIN 1-10 01/28/17 10:00 01/30/17 16:47 Patient Own Medication FEIBA 7500 UNITS DOSE: For IV injection... Q12H IV 01/28/17 21:00 01/30/17 10:25 Patient Own Medication PT OWN MED: NOVOSE... Q12H IV 01/28/17 15:00 01/30/17 14:19 Hydromorphone HCl (Dilaudid Pf Inj) 2 mg Q3HR PRN IV BREAKTHROUGH PAIN 01/30/17 15:00 01/30/17 17:59 Objective Remarks GENERAL: Young man, sitting up in bed, awake and alert. Alert and oriented 3 , he is in pain but does not seem to be in excruciating pain. HEENT: Atraumatic, normocephalic. Pupils equal, round and reactive light. Extraocular muscles intact. No scleral icterus. Oropharynx - dry mucosa, no lesion, no thrush, no mucositis. NECK: No thyromegaly. No palpable mass. LYMPHATICS: No palpable cervical, clavicular, axillary or inguinal lymph nodes. CARDIOVASCULAR: Regular S1 and S2. No murmur. LUNGS: Clear to auscultation bilaterally. No wheezing or rhonchi. ABDOMEN: Soft, nontender. I could not palpate the liver or spleen. EXTREMITIES: The left knee is swollen but no increased warmth, I do not see ecchymosis. No calf tenderness. Edema bilateral lower extremities including the ankles. More severe on the right side as opposed to left. SKIN: As above. NEUROLOGIC: Nonfocal. Assessment/Plan Problem List: (1) Hemarthrosis Status: Acute Plan: -- Per radiology, CT left knee approximately slightly worse than prior image. -- On FEIBA and NovoSeven every 12 hours with doses alternating every 6 hours. -- There has been a significant drop in his hemoglobin, baseline hemoglobin is 13-14 g/dL, hemoglobin at the time of presentation was 11 g/dL. 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 Interestingly, repeat inhibitor titers for November 2016 indicated no evidence of inhibitor. (3) Bacteremia Status: Acute Plan: -- Pt was seen in the ER for non-functioning PICC line -- Cultures grew back gram positive rods -- He was called back for admission for IV Abx -- ID following -- Currently on Vanco and Meropenem. Assessment 26-year-old male with hemophilia A admitted for hemarthrosis of the left knee Plan 1. 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 He will receive 3 doses of each formulation over a 24-hour period. I have increased the dosing of the factors because he feels he continues to bleed and will assess him again in 24 hours to see if he has changed or improved. 2. Monitor CBC; hemoglobin below his baseline indicating recent bleeding. Continue monitoring; no evidence of active bleeding at this time based on stable CBC. 3. Bacteremia: Found to have Escherichia coli; ESLB positive on ertepenem/ vancomycin. He did have sepsis last month and was admitted to the hospital for prolonged period time, during that hospitalization his port was removed. It'll be interesting to determine whether the same bacteria persist which would indicate possible seeding of the hemarthrosis. Disposition: Clinically he appears to be improving. He may be discharged home if outpatient arrangements for intravenous antibiotics per ID recommendations can be arranged through home health nursing. I am however not certain if home health nursing will be able to manage his peripheral IV access nor do I expect them to be able to place peripheral IVs under ultrasound guidance. This would be a good question for our discharge planners to ask the home health nursing agency. Leno Adam MD Jan 30, 2017 19:28
[2017-01-30] MEDS ORDERED: ANTI-INHIBITOR COAGULANT COMPLEX 100 UNIT INJ IV SCH (20:00)
[2017-01-30] MEDS ORDERED: FACTOR VIIA (RECOMB) 5 MG VIAL IV PUSH SCH (20:00)
[2017-01-30] MEDS ORDERED: FACTOR VIIA (RECOMB) 1 MG VIAL IV PUSH SCH (22:00)
[2017-01-30] MEDS ORDERED: [UNRECOGNIZED DRUG - OTHER] IV SCH (22:00)
[2017-01-31] VITALS: BP 114/67; PULSE 89; RESP 18; TEMP 97.6; O2SAT 97
[2017-01-31] MEDS ORDERED: ANTI-INHIBITOR COAGULANT COMPLEX 100 UNIT INJ IV SCH
[2017-01-31] MEDS ORDERED: FACTOR VIIA (RECOMB) 5 MG VIAL IV PUSH SCH
[2017-01-31] MEDS: HYDROmorphone HCL PF 2 MG/ML VIAL IV PRN ×8 (00:09→21:19)
[2017-01-31] MEDS: NICOTINE 4 MG/GUM CHEW PRN ×10 (00:13→23:26)
[2017-01-31] MEDS ORDERED: PHARMACY ORDERED LAB ONE (01:45)
[2017-01-31] MEDS: VANCOMYCIN INJ 1,750 MG in SODIUM CHLORID 0.9% 500 ML INJ 500 ML IV SCH ×3 (03:01→18:20)
[2017-01-31 04:00] VITALS: BP 110/65; PULSE 76; PULSE 91; RESP 18; TEMP 97.8; O2SAT 96
[2017-01-31] MEDS: [UNRECOGNIZED DRUG - OTHER] IV SCH ×3 (04:34→21:01)
[2017-01-31] MEDS: ONDANSETRON HCL 4 MG/2 ML VIAL IVP PRN (04:39)
[2017-01-31] MEDS: ALPRAZolam 0.5 MG TAB PO SCH ×3 (05:48→20:58)
[2017-01-31 08:53] VITALS: BP 118/64; PULSE 91; RESP 16; TEMP 97.2; O2SAT 97
[2017-01-31] MEDS: DOCUSATE SODIUM 50 MG/SENNA 8.6 MG TAB PO SCH ×2 (09:08→21:00)
[2017-01-31] MEDS: MORPHINE SULFATE 60 MG CONTROLLED RELEASE TAB PO SCH ×2 (09:08→20:58)
[2017-01-31] MEDS: SODIUM CHLORIDE 0.9% FLUSH 10 ML FLUSH IV FLUSH SCH ×2 (09:08→21:00)
[2017-01-31] MEDS: [UNRECOGNIZED DRUG - OTHER] IV SCH ×4 (09:09→23:26)
--- NOTE | 2017-01-31 10:04 | HHI.PR ---
Subjective Remarks Follow up for hemarthrosis, bacteremia in a patient with a history of hemophilia A. Patient is doing better. Left knee pain is improving. He is still having a lot of right ankle pain. No fever, chills. Objective Vitals Vital Signs Date Time Temp Pulse Resp B/P Pulse Ox O2 Delivery O2 Flow Rate FiO2 01/31/17 08:53 97.2 91 16 118/64 97 01/31/17 04:00 76 01/31/17 04:00 97.8 91 18 110/65 96 01/31/17 00:00 89 01/31/17 00:00 97.6 89 18 114/67 97 01/30/17 20:15 89 01/30/17 20:00 97.3 90 18 105/59 97 01/30/17 16:45 96.3 85 16 102/55 98 01/30/17 16:00 82 01/30/17 12:59 96.9 90 16 130/60 97 01/30/17 12:00 72 I/O 01/30/17 01/30/17 01/30/17 01/31/17 01/31/17 01/31/17 07:00 15:00 23:00 07:00 15:00 23:00 Intake Total 1660 ml 900 ml 720 ml 1774 ml Output Total 4250 ml 800 ml 1600 ml 2425 ml Balance -2590 ml 100 ml -880 ml -651 ml Intake Oral 1660 ml 900 ml 720 ml 1774 ml Output Urine Total 4250 ml 800 ml 1600 ml 2425 ml Result Diagram: 01/29/17 0239 01/31/17 0258 Imaging Last Impressions Lower Extremity Ultrasound 01/24/17 0000 Signed Impressions: Service Date/Time: Tuesday, January 24, 2017 17:55 - CONCLUSION: No DVT. Ulysses Snowden MD Lower Extremity CT 01/24/17 0000 Signed Impressions: Service Date/Time: Tuesday, January 24, 2017 11:08 - CONCLUSION: Stable examination with osteoarthritis, postsurgical changes and effusion. Irwin Prieto MD Objective Remarks GENERAL: AOX3, NAD. SKIN: Warm and dry. HEAD: Normocephalic. EYES: No scleral icterus. No injection or drainage. NECK: Supple, trachea midline. No JVD or lymphadenopathy. CARDIOVASCULAR: Regular rate and rhythm without murmurs, gallops, or rubs. RESPIRATORY: Breath sounds equal bilaterally. No accessory muscle use. GASTROINTESTINAL: Abdomen soft, non-tender, nondistended. MUSCULOSKELETAL: No cyanosis. Right ankle swollen and tender to palpation. Left knee swollen and tender to palpation. BACK: Nontender without obvious deformity. No CVA tenderness. Procedures None. A/P Problem List: (1) Sepsis ICD Code: A41.9 Status: Resolved (2) Bacteremia ICD Code: R78.81 Status: Acute (3) Left knee pain ICD Code: M25.562 Status: Acute (4) Leukocytosis ICD Code: D72.829 Status: Acute (5) Hypokalemia ICD Code: E87.6 Status: Acute (6) Hemarthrosis ICD Code: M25.00 Status: Acute (7) Right calf pain ICD Code: M79.661 Status: Acute Assessment and Plan Mr. Gonzalez is a 26 year old male with a history of hemophilia A who was called back to the hospital due to positive blood cultures which showed Strep Viridans. Patient has been on factor replacement therapy and has had several [id number]-[id number] infections. In November 2016 blood cultures grew multiple organisms indicating possible tampering of his lines. Patient came to the ED on January 19 to the ED due to occluded PICC line. Culture from this ED visit shows Strep Viridans. He complained of chills and feeling very cold. He complained of left knee pain as well as painful right calf. - Sepsis with ESBL E. Coli and Strep - Strep Viridans and Lactobacillus bacteremia - ESBL E. Coli bacteremia - ID is following. Continue Ertapenem IV and Vancomycin IV. - Once PICC line is removed and bacteremia clears, patient will likely need two weeks of Abx per ID. - Blood cultures negative from 01/26/2017. - Discussed with ID. Patient will need IV abx for two weeks (Ertapenem and Vancomycin). Due to suspected PICC line abuse, we will not place a PICC line. - Will discuss other options for IV abx administration early next week. - Hemophilia A - Hemarthrosis of the left knee and right ankle. - Hematology is following. Continue Anti-inhibitor coagulant complex (Feiba) and Factor VIIA recomb (NovoSeven) - H&H stable at this point. Hgb 11.2, Hct 34.5. - Currently on Dilaudid 2mg IV Q3hrs for Breakthrough pain. - Oxycodone 30mg Q4hrs for pain 1-10. Also on Morphine 60mg Q12hrs Scheduled. - Reduce Dilaudid from 2mg to 1mg Q3hrs for breakthrough. - Anxiety - Currently on Xanax 0.5mg Q8hrs. - Hypokalemia - K+ 2.9 --> 4.0. Resolved. Full code. Ambulation. Problem Qualifiers (1) Sepsis: Qualified Code: A41.9 - Sepsis, due to unspecified organism (2) Left knee pain: Qualified Code: M25.562 - Acute pain of left knee (3) Leukocytosis: Qualified Code: D72.829 - Leukocytosis, unspecified type Tayla Cardona DO Jan 31, 2017 10:04 am Tayla Cardona DO Jan 31, 2017 10:04
--- NOTE | 2017-01-31 10:12 | PD.ONC.PN ---
Subjective Subjective Remarks Afebrile overnight. "I'm getting better." Patient states the swelling in his right calf and pain in his right ankle are improving, especially since his factor support was increased. He states he found a safe place to go after he is discharged from the hospital. Objective Data Date Time Temp Pulse Resp B/P Pulse Ox O2 Delivery O2 Flow Rate FiO2 01/31/17 08:53 97.2 91 16 118/64 97 01/31/17 04:00 76 01/31/17 04:00 97.8 91 18 110/65 96 01/31/17 00:00 89 01/31/17 00:00 97.6 89 18 114/67 97 01/30/17 20:15 89 01/30/17 20:00 97.3 90 18 105/59 97 01/30/17 16:45 96.3 85 16 102/55 98 01/30/17 16:00 82 01/30/17 12:59 96.9 90 16 130/60 97 01/30/17 12:00 72 Result Diagram: 01/29/17 0239 01/31/17 0258 Laboratory Results Laboratory Tests Test 01/31/17 02:58 Creatinine 0.52 MG/DL Estimat Glomerular Filtration 194 ML/MIN Rate Vancomycin Level Trough 14.4 MCG/ML Administered Medications Medications (Trade) Dose Ordered Sig/Mike Route PRN Reason Start Time Stop Time Status Last Admin Dose Admin Sodium Chloride (NS Flush) 2 ml BID IV FLUSH 01/24/17 09:00 01/31/17 09:08 Ondansetron HCl (Zofran Inj) 4 mg Q6H PRN IVP NAUSEA OR VOMITING 01/24/17 00:30 01/31/17 04:39 Senna/Docusate Sodium (Kelli-Colace) 1 tab BID PO 01/24/17 09:00 01/31/17 09:08 Alprazolam (Xanax) 0.5 mg Q8HR PO 01/24/17 06:00 01/31/17 05:48 Morphine Sulfate (Oramorph Sr) 60 mg Q12HR PO 01/24/17 00:45 01/31/17 09:08 Nicotine 4 mg 4 mg Q1H PRN CHEW ANXIETY 01/24/17 10:45 01/31/17 09:16 Ertapenem 1000 mg/ Sodium Chloride 100 ml @ 200 mls/hr Q24H IV 01/26/17 15:00 01/30/17 14:19 Vancomycin HCl/ Sodium Chloride (Vancomycin Inj/ NS 500 ml Inj) 517.5 ml @ 250 mls/hr Q8H IV 01/27/17 18:00 01/31/17 03:01 Oxycodone HCl (Roxicodone) 30 mg Q4H PRN PO PAIN 1-10 01/28/17 10:00 01/31/17 04:32 Hydromorphone HCl (Dilaudid Pf Inj) 2 mg Q3HR PRN IV BREAKTHROUGH PAIN 01/30/17 15:00 01/31/17 09:07 Patient Own Medication FEIBA 7500 UNITS DOSE: For IV injection... Q8H IV 01/30/17 20:00 01/31/17 04:34 Patient Own Medication PT OWN MED: NOVOSE... Q8H IV 01/31/17 00:00 01/31/17 09:09 Objective Remarks GENERAL: Young man, upright in bed, unkempt and disheveled appearance, eating breakfast. He appears comfortable and in nad. SKIN: Warm and dry. HEAD: Normocephalic. EYES: No injection or drainage. NECK: Supple, trachea midline. CARDIOVASCULAR: Regular rate and rhythm RESPIRATORY: Breath sounds equal bilaterally. No accessory muscle use. GASTROINTESTINAL: Abdomen soft, non-tender, nondistended. EXTREMITIES: No cyanosis. some swelling noted in right calf to ankle. no erythema. left knee is mildly swollen, appearing to have more chronic then acute changes. MUSCULOSKELETAL: Adequate muscle tone. NEUROLOGICAL: No obvious focal deficit. Awake, alert, and oriented x3. Assessment/Plan Problem List: (1) Hemarthrosis Status: Acute Plan: -- On FEIBA and NovoSeven every 8 hours with doses alternating every 4 hours. 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 Interestingly, repeat inhibitor titers for November 2016 indicated no evidence of inhibitor. (3) Bacteremia Status: Acute Plan: -- Pt was seen in the ER for non-functioning PICC line --most recent blood cultures negative -- Cultures from 01/23 and 01/24 grew back gram positive rods -- He was called back for admission for IV Abx -- ID following -- Currently on Vanco and Meropenem. Assessment 26-year-old male with hemophilia A admitted for hemarthrosis of the left knee Plan 1. 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 monitor CBC PRN-- clinically he does not seem to be bleeding, he seems to be improving. 3. Bacteremia: most recent blood cultures negative. ID following and recommends continuing Ertapenem and Vanco IV for a 2 week course Attending Statement The exam, history, and the medical decision-making described in the above note were completed with the assistance of the mid-level provider. I reviewed and agree with the findings presented. I attest that I had a [id number] encounter with the patient on the same day, and personally performed and documented my assessment and findings in the medical record. Patient seen and examined, hemophilia A associated with a high circulating inhibitor titer. Presents with hemarthrosis and Escherichia coli (ESLB positive). On IV antibiotics, he will remain on antibiotics till February 09. He feels better and wants to be discharged home. We need to however formulate a plan regarding outpatient IV antibiotic delivery up until 02/09/2017. As far as managing his peripheral IVs is concerned, he tells me he would be happy to come into the emergency department to have another IV line put in under ultrasound guidance if the current line stops working. I would avoid central line access at the time of discharge given the bacteremia. Nallely Brand Jan 31, 2017 10:12 Leno Adam MD Jan 31, 2017 14:57
[2017-01-31 12:00] VITALS: BP 102/56; PULSE 88; RESP 16; TEMP 97.5; O2SAT 97
[2017-01-31 16:00] VITALS: BP 106/60; PULSE 82; RESP 16; TEMP 97.6; O2SAT 97
[2017-01-31] MEDS: ERTAPENEM INJ 1,000 MG in SODIUM CHLORIDE 0.9% INJ 100 ML IV SCH (17:29)
[2017-01-31 20:00] VITALS: BP 125/71; PULSE 89; RESP 18; TEMP 97.9; O2SAT 99
[2017-02-01] VITALS: BP 116/70; PULSE 93; RESP 18; TEMP 97.6; O2SAT 97
[2017-02-01] MEDS: NICOTINE 4 MG/GUM CHEW PRN ×13 (00:29→23:18)
[2017-02-01] MEDS: HYDROmorphone HCL PF 2 MG/ML VIAL IV PRN ×7 (00:29→21:17)
[2017-02-01] MEDS: VANCOMYCIN INJ 1,750 MG in SODIUM CHLORID 0.9% 500 ML INJ 500 ML IV SCH ×3 (03:00→17:53)
[2017-02-01 04:00] VITALS: BP 120/68; PULSE 79; RESP 16; TEMP 96.8; O2SAT 99
[2017-02-01] MEDS: [UNRECOGNIZED DRUG - OTHER] IV SCH ×3 (04:00→21:39)
[2017-02-01] MEDS: ALPRAZolam 0.5 MG TAB PO SCH ×3 (05:32→23:17)
[2017-02-01 08:30] VITALS: BP 113/75; PULSE 80; RESP 22; TEMP 96.8; O2SAT 100
[2017-02-01] MEDS: MORPHINE SULFATE 60 MG CONTROLLED RELEASE TAB PO SCH ×2 (08:30→19:57)
[2017-02-01] MEDS: SODIUM CHLORIDE 0.9% FLUSH 10 ML FLUSH IV FLUSH SCH ×2 (08:30→21:00)
[2017-02-01] MEDS: DOCUSATE SODIUM 50 MG/SENNA 8.6 MG TAB PO SCH ×2 (08:31→19:57)
[2017-02-01] MEDS: [UNRECOGNIZED DRUG - OTHER] IV SCH ×2 (08:36→16:57)
--- NOTE | 2017-02-01 08:57 | HHI.PR ---
Subjective Remarks Follow up for hemarthrosis, bacteremia in a patient with a history of hemophilia A. Patient is doing well. No acute concerns. Still has left knee and right ankle pain. No fever, chills. Objective Vitals Vital Signs Date Time Temp Pulse Resp B/P Pulse Ox O2 Delivery O2 Flow Rate FiO2 02/01/17 08:30 96.8 80 22 113/75 100 02/01/17 04:00 96.8 79 16 120/68 99 02/01/17 00:00 97.6 93 18 116/70 97 01/31/17 20:00 97.9 89 18 125/71 99 01/31/17 16:00 97.6 82 16 106/60 97 01/31/17 12:00 97.5 88 16 102/56 97 01/31/17 10:08 16 I/O 01/31/17 01/31/17 01/31/17 02/01/17 02/01/17 02/01/17 07:00 15:00 23:00 07:00 15:00 23:00 Intake Total 1774 ml 940 ml 1920 ml 2880 ml Output Total 2425 ml 1000 ml 1600 ml 4100 ml Balance -651 ml -60 ml 320 ml -1220 ml Intake Oral 1774 ml 940 ml 1920 ml 2880 ml Output Urine Total 2425 ml 1000 ml 1600 ml 4100 ml Result Diagram: 01/29/17 0239 02/01/17 0700 Objective Remarks GENERAL: AOX3, NAD. SKIN: Warm and dry. HEAD: Normocephalic. EYES: No scleral icterus. No injection or drainage. NECK: Supple, trachea midline. No JVD or lymphadenopathy. CARDIOVASCULAR: Regular rate and rhythm without murmurs, gallops, or rubs. RESPIRATORY: Breath sounds equal bilaterally. No accessory muscle use. GASTROINTESTINAL: Abdomen soft, non-tender, nondistended. MUSCULOSKELETAL: No cyanosis. Right ankle swollen and tender to palpation. Left knee swollen and tender to palpation. BACK: Nontender without obvious deformity. No CVA tenderness. Procedures None. A/P Problem List: (1) Sepsis ICD Code: A41.9 Status: Resolved (2) Bacteremia ICD Code: R78.81 Status: Acute (3) Left knee pain ICD Code: M25.562 Status: Acute (4) Leukocytosis ICD Code: D72.829 Status: Acute (5) Hypokalemia ICD Code: E87.6 Status: Acute (6) Hemarthrosis ICD Code: M25.00 Status: Acute (7) Right calf pain ICD Code: M79.661 Status: Acute Assessment and Plan Mr. Gonzalez is a 26 year old male with a history of hemophilia A who was called back to the hospital due to positive blood cultures which showed Strep Viridans. Patient has been on factor replacement therapy and has had several zgsaut-s-[id number] infections. In November 2016 blood cultures grew multiple organisms indicating possible tampering of his lines. Patient came to the ED on January 19 to the ED due to occluded PICC line. Culture from this ED visit shows Strep Viridans. He complained of chills and feeling very cold. He complained of left knee pain as well as painful right calf. - Sepsis with ESBL E. Coli and Strep - Strep Viridans and Lactobacillus bacteremia - ESBL E. Coli bacteremia - ID is following. Continue Ertapenem IV and Vancomycin IV. - Once PICC line is removed and bacteremia clears, patient will likely need two weeks of Abx per ID. - Blood cultures negative from 01/26/2017. - Discussed with ID. Patient will need IV abx for two weeks (Ertapenem and Vancomycin). Due to suspected PICC line abuse, we will not place a PICC line. - Will discuss other options for IV abx administration on 02/02/2017 - Hemophilia A - Hemarthrosis of the left knee and right ankle. - Hematology is following. Continue Anti-inhibitor coagulant complex (Feiba) and Factor VIIA recomb (NovoSeven) - H&H stable at this point. Hgb 11.2, Hct 34.5. - Currently on Dilaudid 2mg IV Q3hrs for Breakthrough pain. - Oxycodone 30mg Q4hrs for pain 1-10. Also on Morphine 60mg Q12hrs Scheduled. - Continue Dilaudid 2mg PRN - Anxiety - Currently on Xanax 0.5mg Q8hrs. - Hypokalemia - K+ 2.9 --> 4.0. Resolved. Full code. Ambulation. Problem Qualifiers (1) Sepsis: Qualified Code: A41.9 - Sepsis, due to unspecified organism (2) Left knee pain: Qualified Code: M25.562 - Acute pain of left knee (3) Leukocytosis: Qualified Code: D72.829 - Leukocytosis, unspecified type Tayla Cardona DO Feb 01, 2017 8:57 am
--- NOTE | 2017-02-01 09:56 | PD.ONC.PN ---
Subjective Subjective Remarks Afebrile overnight. Patient resting in bed. Still with pain in the right calf. Had difficulty sleeping last night. Objective Data Date Time Temp Pulse Resp B/P Pulse Ox O2 Delivery O2 Flow Rate FiO2 02/01/17 08:30 96.8 80 22 113/75 100 02/01/17 04:00 96.8 79 16 120/68 99 02/01/17 00:00 97.6 93 18 116/70 97 01/31/17 20:00 97.9 89 18 125/71 99 01/31/17 16:00 97.6 82 16 106/60 97 01/31/17 12:00 97.5 88 16 102/56 97 01/31/17 10:08 16 02/01/17 02/01/17 02/01/17 07:00 15:00 23:00 Intake Total 2880 ml Output Total 4100 ml Balance -1220 ml Result Diagram: 01/29/17 0239 02/01/17 0700 Laboratory Results Laboratory Tests Test 02/01/17 07:00 Creatinine 0.42 MG/DL Estimat Glomerular Filtration 248 ML/MIN Rate Administered Medications Medications (Trade) Dose Ordered Sig/Mike Route PRN Reason Start Time Stop Time Status Last Admin Dose Admin Sodium Chloride (NS Flush) 2 ml BID IV FLUSH 01/24/17 09:00 01/31/17 09:08 Ondansetron HCl (Zofran Inj) 4 mg Q6H PRN IVP NAUSEA OR VOMITING 01/24/17 00:30 01/31/17 04:39 Senna/Docusate Sodium (Kelli-Colace) 1 tab BID PO 01/24/17 09:00 01/31/17 09:08 Alprazolam (Xanax) 0.5 mg Q8HR PO 01/24/17 06:00 02/01/17 05:32 Morphine Sulfate (Oramorph Sr) 60 mg Q12HR PO 01/24/17 00:45 02/01/17 08:30 Nicotine 4 mg 4 mg Q1H PRN CHEW ANXIETY 01/24/17 10:45 02/01/17 09:13 Ertapenem 1000 mg/ Sodium Chloride 100 ml @ 200 mls/hr Q24H IV 01/26/17 15:00 01/31/17 17:29 Vancomycin HCl/ Sodium Chloride (Vancomycin Inj/ NS 500 ml Inj) 517.5 ml @ 250 mls/hr Q8H IV 01/27/17 18:00 02/01/17 03:00 Oxycodone HCl (Roxicodone) 30 mg Q4H PRN PO PAIN 1-10 01/28/17 10:00 02/01/17 06:45 Hydromorphone HCl (Dilaudid Pf Inj) 2 mg Q3HR PRN IV BREAKTHROUGH PAIN 01/30/17 15:00 02/01/17 09:02 Patient Own Medication FEIBA 7500 UNITS DOSE: For IV injection... Q8H IV 01/30/17 20:00 02/01/17 04:00 Patient Own Medication PT OWN MED: NOVOSE... Q8H IV 01/31/17 00:00 02/01/17 08:36 Objective Remarks GENERAL: Young man, sitting up in bed in nad. SKIN: Warm and dry. HEAD: Normocephalic. EYES: No injection or drainage. NECK: Supple, trachea midline. CARDIOVASCULAR: Regular rate and rhythm RESPIRATORY: Breath sounds equal bilaterally. No accessory muscle use. GASTROINTESTINAL: Abdomen soft, non-tender, nondistended. EXTREMITIES: No cyanosis. some swelling noted in right calf to ankle. no erythema. left knee is mildly swollen, appearing to have more chronic then acute changes. MUSCULOSKELETAL: Adequate muscle tone. NEUROLOGICAL: awake and alert, normal speech. moving all extremities. Assessment/Plan Problem List: (1) Hemarthrosis Status: Acute Plan: -- On FEIBA and NovoSeven every 8 hours with doses alternating every 4 hours. 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 Interestingly, repeat inhibitor titers for November 2016 indicated no evidence of inhibitor. (3) Bacteremia Status: Acute Plan: -- Pt was seen in the ER for non-functioning PICC line --most recent blood cultures negative x 5 days -- Cultures from 01/23 and 01/24 grew back gram positive rods -- He was called back for admission for IV Abx -- ID following -- Currently on Vanco and Meropenem. Assessment 26-year-old male with hemophilia A admitted for hemarthrosis of the left knee Plan 1. 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 monitor CBC PRN-- no need for CBC today 3. Bacteremia: most recent blood cultures negative. ID following and recommends continuing Ertapenem and Vanco IV for a 2 week course--possible d/c early next week. Attending Statement The exam, history, and the medical decision-making described in the above note were completed with the assistance of the mid-level provider. I reviewed and agree with the findings presented. I attest that I had a [id number] encounter with the patient on the same day, and personally performed and documented my assessment and findings in the medical record. Patient seen and examined, vital signs, labs and medications were reviewed. Review with physical exam findings as documented above. Plan: Continue factor replacement at the current frequency. Patient feels a gradual improvement. He is looking forward to discharged home in the upcoming 1-2 days. He to the initiated with a call if home health nursing agency; [facility] and he has arranged for IV antibiotics to be delivered up until 2016. He's requesting he be allowed to go off the floor with supervision to get some fresh And sunlight. That is reasonable. Continue ongoing care. Hopefully he should be ready for discharge once outpatient IV antibiotics are arranged. He does have some phlebitis of the right forearm related to his peripheral IV. I've advised warm compresses for this. Nallely Brand Feb 01, 2017 09:56 Leno Adam MD Feb 01, 2017 10:48
[2017-02-01] MEDS: ONDANSETRON HCL 4 MG/2 ML VIAL IVP PRN (11:30)
[2017-02-01 12:33] VITALS: BP 112/68; PULSE 80; RESP 21; TEMP 97; O2SAT 99
[2017-02-01] MEDS: ERTAPENEM INJ 1,000 MG in SODIUM CHLORIDE 0.9% INJ 100 ML IV SCH (15:29)
[2017-02-01 16:30] VITALS: BP 116/73; PULSE 103; RESP 21; TEMP 97.5; O2SAT 99
[2017-02-01 20:00] VITALS: BP 115/71; PULSE 87; RESP 18; TEMP 96.2; O2SAT 98
[2017-02-02] VITALS: BP 115/71; PULSE 75; RESP 18; TEMP 96.8; O2SAT 99
[2017-02-02] MEDS: [UNRECOGNIZED DRUG - OTHER] IV SCH ×3 (00:31→16:19)
[2017-02-02] MEDS: NICOTINE 4 MG/GUM CHEW PRN ×13 (00:35→23:20)
[2017-02-02] MEDS: HYDROmorphone HCL PF 2 MG/ML VIAL IV PRN ×7 (01:03→22:47)
[2017-02-02] MEDS: ONDANSETRON HCL 4 MG/2 ML VIAL IVP PRN (01:10)
[2017-02-02] MEDS: VANCOMYCIN INJ 1,750 MG in SODIUM CHLORID 0.9% 500 ML INJ 500 ML IV SCH ×3 (02:37→18:30)
[2017-02-02 04:00] VITALS: BP 102/69; PULSE 89; RESP 18; TEMP 97.5; O2SAT 98
[2017-02-02] MEDS: [UNRECOGNIZED DRUG - OTHER] IV SCH (04:00)
[2017-02-02] MEDS: ALPRAZolam 0.5 MG TAB PO SCH ×3 (04:58→22:24)
[2017-02-02 08:00] VITALS: BP 108/70; PULSE 81; RESP 18; TEMP 97.9; O2SAT 98
[2017-02-02] MEDS: SODIUM CHLORIDE 0.9% FLUSH 10 ML FLUSH IV FLUSH SCH ×2 (08:21→19:35)
[2017-02-02] MEDS: MORPHINE SULFATE 60 MG CONTROLLED RELEASE TAB PO SCH ×2 (08:21→20:54)
[2017-02-02] MEDS: DOCUSATE SODIUM 50 MG/SENNA 8.6 MG TAB PO SCH ×3 (08:21→19:25)
--- NOTE | 2017-02-02 09:07 | HHI.PR ---
Subjective Remarks Follow up for hemarthrosis, bacteremia in a patient with a history of hemophilia A. Patient is doing well. Still has right ankle and left knee pain. No fever, chills. Objective Vitals Vital Signs Date Time Temp Pulse Resp B/P Pulse Ox O2 Delivery O2 Flow Rate FiO2 02/02/17 07:24 16 02/02/17 06:08 16 02/02/17 04:00 97.5 89 18 102/69 98 02/02/17 00:00 96.8 75 18 115/71 99 02/01/17 21:15 16 02/01/17 20:00 96.2 87 18 115/71 98 02/01/17 16:30 97.5 103 21 116/73 99 02/01/17 12:33 97.0 80 21 112/68 99 I/O 02/01/17 02/01/17 02/01/17 02/02/17 02/02/17 02/02/17 07:00 15:00 23:00 07:00 15:00 23:00 Intake Total 2880 ml 2440 ml 960 ml 960 ml Output Total 4100 ml 2800 ml Balance -1220 ml 2440 ml 960 ml -1840 ml Intake Oral 2880 ml 1440 ml 960 ml 960 ml IV Total 1000 ml Output Urine Total 4100 ml 2800 ml # Voids 3 4 # Bowel Movements 1 Result Diagram: 01/29/17 0239 02/01/17 0700 Imaging Last Impressions Lower Extremity Ultrasound 01/24/17 0000 Signed Impressions: Service Date/Time: Tuesday, January 24, 2017 17:55 - CONCLUSION: No DVT. Ulysses Snowden MD Lower Extremity CT 01/24/17 0000 Signed Impressions: Service Date/Time: Tuesday, January 24, 2017 11:08 - CONCLUSION: Stable examination with osteoarthritis, postsurgical changes and effusion. Irwin Prieto MD Objective Remarks GENERAL: AOX3, NAD. SKIN: Warm and dry. HEAD: Normocephalic. EYES: No scleral icterus. No injection or drainage. NECK: Supple, trachea midline. No JVD or lymphadenopathy. CARDIOVASCULAR: Regular rate and rhythm without murmurs, gallops, or rubs. RESPIRATORY: Breath sounds equal bilaterally. No accessory muscle use. GASTROINTESTINAL: Abdomen soft, non-tender, nondistended. MUSCULOSKELETAL: No cyanosis. Right ankle swollen and tender to palpation. Left knee swollen and tender to palpation. BACK: Nontender without obvious deformity. No CVA tenderness. Procedures None. A/P Problem List: (1) Sepsis ICD Code: A41.9 Status: Resolved (2) Bacteremia ICD Code: R78.81 Status: Acute (3) Left knee pain ICD Code: M25.562 Status: Acute (4) Leukocytosis ICD Code: D72.829 Status: Acute (5) Hypokalemia ICD Code: E87.6 Status: Acute (6) Hemarthrosis ICD Code: M25.00 Status: Acute (7) Right calf pain ICD Code: M79.661 Status: Acute Assessment and Plan Mr. Gonzalez is a 26 year old male with a history of hemophilia A who was called back to the hospital due to positive blood cultures which showed Strep Viridans. Patient has been on factor replacement therapy and has had several zywvzz-c-Seze infections. In November 2016 blood cultures grew multiple organisms indicating possible tampering of his lines. Patient came to the ED on January 19 to the ED due to occluded PICC line. Culture from this ED visit shows Strep Viridans. He complained of chills and feeling very cold. He complained of left knee pain as well as painful right calf. - Sepsis with ESBL E. Coli and Strep - Strep Viridans and Lactobacillus bacteremia - ESBL E. Coli bacteremia - ID is following. Continue Ertapenem IV and Vancomycin IV. - Once PICC line is removed and bacteremia clears, patient will likely need two weeks of Abx per ID. - Blood cultures negative from 01/26/2017. - Discussed with ID. Patient will need IV abx for two weeks (Ertapenem and Vancomycin). Due to suspected PICC line abuse, we will not place a PICC line. - Hemophilia A - Hemarthrosis of the left knee and right ankle. - Hematology is following. Continue Anti-inhibitor coagulant complex (Feiba) and Factor VIIA recomb (NovoSeven) - H&H stable at this point. Hgb 11.2, Hct 34.5. CBC, BMP in the AM. - Currently on Dilaudid 2mg IV Q3hrs for Breakthrough pain. - Oxycodone 30mg Q4hrs for pain 1-10. Also on Morphine 60mg Q12hrs Scheduled. - Continue Dilaudid 2mg PRN - Anxiety - Currently on Xanax 0.5mg Q8hrs. - Hypokalemia - K+ 2.9 --> 4.0. Resolved. Full code. Ambulation. Problem Qualifiers (1) Sepsis: Qualified Code: A41.9 - Sepsis, due to unspecified organism (2) Left knee pain: Qualified Code: M25.562 - Acute pain of left knee (3) Leukocytosis: Qualified Code: D72.829 - Leukocytosis, unspecified type Tayla Cardona DO Feb 02, 2017 9:07 am Tayla Cardona DO Feb 02, 2017 9:07 am
[2017-02-02 12:00] VITALS: BP 113/73; PULSE 83; RESP 18; TEMP 97.9; O2SAT 97
[2017-02-02] MEDS: ANTI-INHIBITOR COAGULANT COMPLEX 100 UNIT INJ IV SCH ×2 (12:13→20:10)
[2017-02-02 16:00] VITALS: BP 107/75; PULSE 80; RESP 18; TEMP 97.8; O2SAT 98
[2017-02-02] MEDS: ERTAPENEM INJ 1,000 MG in SODIUM CHLORIDE 0.9% INJ 100 ML IV SCH (17:36)
[2017-02-02 20:00] VITALS: BP 122/62; PULSE 85; RESP 18; TEMP 98.1; O2SAT 98
[2017-02-03] VITALS (7 sets, daily range): BP systolic 107–134; BP diastolic 61–84; PULSE 65–94; RESP 16–18; TEMP 97.3–98.4; O2SAT 97–100
[2017-02-03] MEDS: FACTOR VIIA (RECOMB) 5 MG VIAL IV PUSH SCH ×3 (00:08→16:17)
[2017-02-03] MEDS: HYDROmorphone HCL PF 2 MG/ML VIAL IV PRN ×5 (02:00→18:18)
[2017-02-03] MEDS: VANCOMYCIN INJ 1,750 MG in SODIUM CHLORID 0.9% 500 ML INJ 500 ML IV SCH ×3 (02:02→17:02)
[2017-02-03] MEDS: NICOTINE 4 MG/GUM CHEW PRN ×6 (02:04→17:03)
[2017-02-03] MEDS: ANTI-INHIBITOR COAGULANT COMPLEX 100 UNIT INJ IV SCH ×2 (04:09→12:50)
[2017-02-03] MEDS: ALPRAZolam 0.5 MG TAB PO SCH ×2 (06:14→14:17)
[2017-02-03 06:38] LABS: AUTOMATED NEUTROPHIL # 2.8 TH/MM3 (1.8-7.7); BASOPHIL # 0.1 TH/MM3 (0-0.2); BASOPHIL % 0.9 % (0.0-2.0); EOSINOPHIL # 0.5 TH/MM3 (0-0.4); EOSINOPHIL % 8.1 % (0.0-4.0); HEMATOCRIT 32.4 % (39.0-51.0); LYMPHOCYTE # 2.2 TH/MM3 (1.0-4.8); MEAN CELL VOLUME 80.3 FL (80.0-100.0); MEAN CORPUSCULAR HEMOGLOBIN 26.1 PG (27.0-34.0); MEAN CORPUSCULAR HGB CONC 32.5 % (32.0-36.0); PLATELET COUNT 68 TH/MM3 (150-450); RED BLOOD COUNT 4.04 MIL/MM3 (4.50-5.90); RED CELL DISTRIBUTION WIDTH 20.2 % (11.6-17.2); WHITE BLOOD COUNT 5.9 TH/MM3 (4.0-11.0)
[2017-02-03 06:46] LABS: BICARBONATE 29.2 MEQ/L (21.0-32.0); POTASSIUM 4.1 MEQ/L (3.5-5.1)
[2017-02-03 07:24] LABS: HEMO FLAGS AUTO DIFF
[2017-02-03 07:26] LABS: OVALOCYTES 1+ (NORMAL); PLATELET ESTIMATE SMEAR LOW (NORMAL); PLATELET MORPHOLOGY NORMAL (NORMAL); SCAN/DIFF AUTO DIFF CONFIRMED
[2017-02-03] MEDS: DOCUSATE SODIUM 50 MG/SENNA 8.6 MG TAB PO SCH (08:47)
[2017-02-03] MEDS: MORPHINE SULFATE 60 MG CONTROLLED RELEASE TAB PO SCH (08:47)
[2017-02-03] MEDS: SODIUM CHLORIDE 0.9% FLUSH 10 ML FLUSH IV FLUSH SCH (08:48)
--- NOTE | 2017-02-03 09:10 | HHI.PR ---
Subjective Remarks Follow up for hemarthrosis, bacteremia in a patient with a history of hemophilia A. Patient is doing well. No fever, chills. Right ankle and left knee painful. Pain is well controlled. Objective Vitals Vital Signs Date Time Temp Pulse Resp B/P Pulse Ox O2 Delivery O2 Flow Rate FiO2 02/03/17 08:00 98.0 84 18 108/75 100 02/03/17 04:00 97.6 91 16 113/63 97 02/03/17 00:00 97.3 89 16 107/61 98 02/02/17 20:00 98.1 85 18 122/62 98 02/02/17 16:00 97.8 80 18 107/75 98 02/02/17 12:00 97.9 83 18 113/73 97 I/O 02/02/17 02/02/17 02/02/17 02/03/17 02/03/17 02/03/17 06:59 14:59 22:59 06:59 14:59 22:59 Intake Total 960 ml 7165 ml 2675 ml Output Total 2800 ml 750 ml 1400 ml 1100 ml Balance -1840 ml 6415 ml 1275 ml -1100 ml Intake Oral 960 ml 3120 ml 1560 ml IV Total 4045 ml 1115 ml Output Urine Total 2800 ml 750 ml 1400 ml 1100 ml # Voids 8 Result Diagram: 02/03/17 0546 02/03/17 0546 Imaging Last Impressions Lower Extremity Ultrasound 01/24/17 0000 Signed Impressions: Service Date/Time: Tuesday, January 24, 2017 17:55 - CONCLUSION: No DVT. Ulysses Snowden MD Lower Extremity CT 01/24/17 0000 Signed Impressions: Service Date/Time: Tuesday, January 24, 2017 11:08 - CONCLUSION: Stable examination with osteoarthritis, postsurgical changes and effusion. Irwin Prieto MD Objective Remarks GENERAL: AOX3, NAD. SKIN: Warm and dry. HEAD: Normocephalic. EYES: No scleral icterus. No injection or drainage. NECK: Supple, trachea midline. No JVD or lymphadenopathy. CARDIOVASCULAR: Regular rate and rhythm without murmurs, gallops, or rubs. RESPIRATORY: Breath sounds equal bilaterally. No accessory muscle use. GASTROINTESTINAL: Abdomen soft, non-tender, nondistended. MUSCULOSKELETAL: No cyanosis. Right ankle swollen and tender to palpation. Left knee swollen and tender to palpation. BACK: Nontender without obvious deformity. No CVA tenderness. Procedures None. A/P Problem List: (1) Sepsis ICD Code: A41.9 Status: Resolved (2) Bacteremia ICD Code: R78.81 Status: Acute (3) Left knee pain ICD Code: M25.562 Status: Acute (4) Leukocytosis ICD Code: D72.829 Status: Acute (5) Hypokalemia ICD Code: E87.6 Status: Acute (6) Hemarthrosis ICD Code: M25.00 Status: Acute (7) Right calf pain ICD Code: M79.661 Status: Acute Assessment and Plan Mr. Gonzalez is a 26 year old male with a history of hemophilia A who was called back to the hospital due to positive blood cultures which showed Strep Viridans. Patient has been on factor replacement therapy and has had several onivcu-v-Jtqq infections. In November 2016 blood cultures grew multiple organisms indicating possible tampering of his lines. Patient came to the ED on January 19 to the ED due to occluded PICC line. Culture from this ED visit shows Strep Viridans. He complained of chills and feeling very cold. He complained of left knee pain as well as painful right calf. - Sepsis with ESBL E. Coli and Strep - Strep Viridans and Lactobacillus bacteremia - ESBL E. Coli bacteremia - ID is following. Continue Ertapenem IV and Vancomycin IV. - Blood cultures negative from 01/26/2017. - Discussed with ID. Patient will need IV abx for two weeks (Ertapenem and Vancomycin). Due to suspected PICC line abuse, we will not place a PICC line. - Hemophilia A - Hemarthrosis of the left knee and right ankle. - Hematology is following. Continue Anti-inhibitor coagulant complex (Feiba) and Factor VIIA recomb (NovoSeven) - CBC this AM showed PLT dropped from 153 --> 68. CBC re-ordered by hematology. - Currently on Dilaudid 2mg IV Q3hrs for Breakthrough pain. - Oxycodone 30mg Q4hrs for pain 1-10. Also on Morphine 60mg Q12hrs Scheduled. - Continue Dilaudid 2mg PRN - Anxiety - Currently on Xanax 0.5mg Q8hrs. - Hypokalemia - K+ 2.9 --> 4.0. Resolved. Full code. Ambulation. Problem Qualifiers (1) Sepsis: Qualified Code: A41.9 - Sepsis, due to unspecified organism (2) Left knee pain: Qualified Code: M25.562 - Acute pain of left knee (3) Leukocytosis: Qualified Code: D72.829 - Leukocytosis, unspecified type Tayla Cardona DO Feb 03, 2017 9:10 am
[2017-02-03] MEDS ORDERED: PHARMACY ORDERED LAB ONE ×2 (09:45→17:45)
--- NOTE | 2017-02-03 10:46 | PD.ONC.PN ---
Subjective Subjective Remarks Afebrile overnight. States he had difficulty sleeping overnight. Continues to have pain and swelling in right calf/ankle. Pain in left knee has improved. Objective Data Date Time Temp Pulse Resp B/P Pulse Ox O2 Delivery O2 Flow Rate FiO2 02/03/17 10:28 74 134/84 02/03/17 08:00 98.0 84 18 108/75 100 02/03/17 04:00 97.6 91 16 113/63 97 02/03/17 00:00 97.3 89 16 107/61 98 02/02/17 20:00 98.1 85 18 122/62 98 02/02/17 16:00 97.8 80 18 107/75 98 02/02/17 12:00 97.9 83 18 113/73 97 02/03/17 02/03/17 02/03/17 07:00 15:00 23:00 Intake Total 2675 ml Output Total 1400 ml 1100 ml Balance 1275 ml -1100 ml Result Diagram: 02/03/17 0546 02/03/17 0546 Laboratory Results Laboratory Tests Test 02/03/17 05:46 White Blood Count 5.9 TH/MM3 Red Blood Count 4.04 MIL/MM3 Hemoglobin 10.5 GM/DL Hematocrit 32.4 % Mean Corpuscular Volume 80.3 FL Mean Corpuscular Hemoglobin 26.1 PG Mean Corpuscular Hemoglobin 32.5 % Concent Red Cell Distribution Width 20.2 % Platelet Count 68 TH/MM3 Mean Platelet Volume 8.6 FL Neutrophils (%) (Auto) 47.0 % Lymphocytes (%) (Auto) 37.0 % Monocytes (%) (Auto) 7.0 % Eosinophils (%) (Auto) 8.1 % Basophils (%) (Auto) 0.9 % Neutrophils # (Auto) 2.8 TH/MM3 Lymphocytes # (Auto) 2.2 TH/MM3 Monocytes # (Auto) 0.4 TH/MM3 Eosinophils # (Auto) 0.5 TH/MM3 Basophils # (Auto) 0.1 TH/MM3 CBC Comment AUTO DIFF Differential Comment AUTO DIFF CONFIRMED Platelet Estimate LOW Platelet Morphology Comment NORMAL Ovalocytes 1+ Sodium Level 141 MEQ/L Potassium Level 4.1 MEQ/L Chloride Level 106 MEQ/L Carbon Dioxide Level 29.2 MEQ/L Anion Gap 6 MEQ/L Blood Urea Nitrogen 8 MG/DL Creatinine 0.48 MG/DL Estimat Glomerular Filtration 212 ML/MIN Rate Random Glucose 80 MG/DL Calcium Level 9.1 MG/DL Vancomycin Level Trough 28.5 MCG/ML Administered Medications Medications (Trade) Dose Ordered Sig/Mike Route PRN Reason Start Time Stop Time Status Last Admin Dose Admin Sodium Chloride (NS Flush) 2 ml UNSCH PRN IV FLUSH FLUSH AFTER USING IV ACCESS 01/24/17 00:30 02/03/17 02:00 Sodium Chloride (NS Flush) 2 ml BID IV FLUSH 01/24/17 09:00 02/03/17 08:48 Ondansetron HCl (Zofran Inj) 4 mg Q6H PRN IVP NAUSEA OR VOMITING 01/24/17 00:30 02/02/17 01:10 Senna/Docusate Sodium (Kelli-Colace) 1 tab BID PO 01/24/17 09:00 02/01/17 19:57 Alprazolam (Xanax) 0.5 mg Q8HR PO 01/24/17 06:00 02/03/17 06:14 Morphine Sulfate (Oramorph Sr) 60 mg Q12HR PO 01/24/17 00:45 02/03/17 08:47 Nicotine 4 mg 4 mg Q1H PRN CHEW ANXIETY 01/24/17 10:45 02/03/17 08:50 Ertapenem 1000 mg/ Sodium Chloride 100 ml @ 200 mls/hr Q24H IV 01/26/17 15:00 02/02/17 17:36 Vancomycin HCl/ Sodium Chloride (Vancomycin Inj/ NS 500 ml Inj) 517.5 ml @ 250 mls/hr Q8H IV 01/27/17 18:00 02/03/17 09:12 Oxycodone HCl (Roxicodone) 30 mg Q4H PRN PO PAIN 1-10 01/28/17 10:00 02/03/17 08:47 Hydromorphone HCl (Dilaudid Pf Inj) 2 mg Q3HR PRN IV BREAKTHROUGH PAIN 01/30/17 15:00 02/03/17 10:31 Patient Own Medication FEIBA 7500 UNITS DOSE: For IV injection... Q8H IV 01/30/17 20:00 Hold 02/02/17 04:00 Patient Own Medication PT OWN MED: NOVOSE... Q8H IV 01/31/17 00:00 Hold 02/02/17 16:19 Anti-Inhibitor Coagulant Complex (Feiba Nf Inj) 7,500 units Q8H IV 02/02/17 12:00 02/03/17 04:09 Factor VII (Pha) (Novoseven Rt Inj) 10 mg Q8H IV PUSH 02/03/17 00:00 02/03/17 08:46 Objective Remarks GENERAL: Young man, lethargic but upright in bed. SKIN: Warm and dry. HEAD: Normocephalic. EYES: No injection or drainage. NECK: Supple, trachea midline. CARDIOVASCULAR: Regular rate and rhythm RESPIRATORY: Breath sounds equal bilaterally. No accessory muscle use. GASTROINTESTINAL: Abdomen soft, non-tender, nondistended. EXTREMITIES: No cyanosis. continued swelling right calf/ankle. left knee with chronic changes. MUSCULOSKELETAL: Adequate muscle tone. NEUROLOGICAL: lethargic but awake. normal speech. moving extremities. Assessment/Plan Problem List: (1) Hemarthrosis Status: Acute Plan: -- On FEIBA and NovoSeven every 8 hours with doses alternating every 4 hours. 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 Interestingly, repeat inhibitor titers for November 2016 indicated no evidence of inhibitor. (3) Bacteremia Status: Acute Plan: -- Pt was seen in the ER for non-functioning PICC line --most recent blood cultures negative x 5 days -- Cultures from 01/23 and 01/24 grew back gram positive rods -- He was called back for admission for IV Abx -- ID following -- Currently on Vanco and Meropenem. (4) Thrombocytopenia Status: Acute Plan: --monitor --unclear etiology--possibly due to Vancomycin --if platelets continue downward trend, will need ID to change antibiotics Assessment 26-year-old male with hemophilia A admitted for hemarthrosis of the left knee Plan 1. 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 CBC--monitor platelet count--may need ID to change antibiotics 3. Bacteremia: most recent blood cultures negative. ID following and recommends continuing Ertapenem and Vanco IV for a 2 week course Nallely Brand Feb 03, 2017 10:46
[2017-02-03 13:44] LABS: AUTOMATED NEUTROPHIL # 3.4 TH/MM3 (1.8-7.7); BASOPHIL % 0.7 % (0.0-2.0); EOSINOPHIL # 0.5 TH/MM3 (0-0.4); EOSINOPHIL % 8.7 % (0.0-4.0); HEMATOCRIT 34.8 % (39.0-51.0); LYMPH % 31.3 % (9.0-44.0); MEAN CELL VOLUME 80.6 FL (80.0-100.0); MEAN CORPUSCULAR HEMOGLOBIN 25.9 PG (27.0-34.0); MEAN CORPUSCULAR HGB CONC 32.2 % (32.0-36.0); MONO % 5.7 % (0.0-8.0); NEUT % 53.6 % (16.0-70.0); PLATELET COUNT 78 TH/MM3 (150-450); RED BLOOD COUNT 4.32 MIL/MM3 (4.50-5.90); RED CELL DISTRIBUTION WIDTH 20.8 % (11.6-17.2); WHITE BLOOD COUNT 6.3 TH/MM3 (4.0-11.0)
[2017-02-03 13:47] LABS: HEMO FLAGS AUTO DIFF
[2017-02-03 14:21] LABS: PLATELET ESTIMATE SMEAR LOW (NORMAL); PLATELET MORPHOLOGY NORMAL (NORMAL); SCAN/DIFF AUTO DIFF CONFIRMED
[2017-02-03] MEDS: ERTAPENEM INJ 1,000 MG in SODIUM CHLORIDE 0.9% INJ 100 ML IV SCH (15:59)
[2017-02-03] MEDS: ONDANSETRON HCL 4 MG/2 ML VIAL IVP PRN (18:28)
== END 2017-02-03 19:36 | disposition left against medical advice (07) | DRG 314 ==
LOC: NEPC 21:17 → NEDA 22:30 → N05B 01-24 02:10 → HOCB 01-26 11:51 → HOCA 02-01 00:42
PROVIDERS: ADMIT Hospitalist; ATTEND Hospitalist
DX: T80.211A Bloodstream infection due to central venous catheter, initial encounter (principal); A41.51 Sepsis due to Escherichia coli [E. coli]; A41.89 Other specified sepsis; D66 Hereditary factor VIII deficiency; A40.8 Other streptococcal sepsis; D69.6 Thrombocytopenia, unspecified; I80.8 Phlebitis and thrombophlebitis of other sites; M25.062 Hemarthrosis, left knee; T80.1XXA Vascular complications following infusion, transfusion and therapeutic injection, initial encounter; E87.6 Hypokalemia; G89.29 Other chronic pain; M79.661 Pain in right lower leg; D64.9 Anemia, unspecified; M25.571 Pain in right ankle and joints of right foot; G47.9 Sleep disorder, unspecified; M19.90 Unspecified osteoarthritis, unspecified site; T36.8X5A Adverse effect of other systemic antibiotics, initial encounter; F17.210 Nicotine dependence, cigarettes, uncomplicated; F41.9 Anxiety disorder, unspecified; Y84.8 Other medical procedures as the cause of abnormal reaction of the patient, or of later complication, without mention of misadventure at the time of the procedure; Y92.239 Unspecified place in hospital as the place of occurrence of the external cause; Z16.12 Extended spectrum beta lactamase (ESBL) resistance; Z79.01 Long term (current) use of anticoagulants
CPT/HCPCS: 73700; 76937; 80048; 80202; 82550; 82565; 83605; 83735; 85014; 85018; 85025; 85610; 85730; 87040; 87149; 87186; 87205; 93971; 96365; 96375; J0696; J1170; J1335; J2185; J2270; J2405; J3370; J3480; J7040; J7050; J7189; J7198

== ENCOUNTER 2017-05-05 05:41 | Observation (INO) | payer MEDICARE, OTHER ==
[~2017-05-05] VITALS: Ht 177.8 cm; Wt 70.0 kg
[2017-05-05 06:10] VITALS: BP 128/68; PULSE 106; RESP 14; TEMP 98.6; O2SAT 97
--- NOTE | 2017-05-05 06:44 | PD ---
HPI Chief Complaint: Medical Clearance Time Seen by Provider: 06:21 Travel History International Travel<30 days: No Contact w/Intl Traveler<30days: No Traveled to known affect area: No History of Present Illness HPI 26-year-old male presents to the emergency department in police custody with complaint of right wrist pain after handcuffing by police with history of severe hemophilia A and high circulating titers of factor inhibitor under the care of Dr. Omid moyer and Dr. Galvez as his hematology at [facility]. Patient was seen as recently as one week ago Thursday by his glass rolling machine operator at [facility] and [place]. Patient reports this evening he had gone to the store and was attempting to use his stomach hard which was reportedly declined and when he attempted to pay for a taxicab with a bill that he had this was felt to be counter fed and police were called and he was arrested and taken to long term. Patient states with placement of his handcuffs he has noted swelling of the wrist and hand. Patient has chronic pain in both elbows with history of recurrent hemarthrosis chronic swelling and pain to his left knee and chronic pain and swelling to his right hip. Patient denies any recent fall or injury except for his right wrist. Patient states that he gave himself FEIBA dosing on Thursday which is his usual. Patient also reports that he is on morphine and Percocet for chronic pain syndrome. She has been administering his factor replacement using peripheral butterfly IV access. Patient currently does not have an Lrnray-r-Mrom due to report sepsis and requiring the port to be removed and has had 3 removed. Patient is also remotely undergone knee surgery in 2000 and the femur fracture repair in 2010. Patient does not report any recent fever or chills. Patient does have an old resolving bruise to the right chest wall but denies any chest pain or shortness of breath. Patient moved to the area from [place] June 2016 since then he's been admitted August and December 2016 for hemophilia- related issues. 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%) high factor inhibitor, back or use high factor inhibitor titer anxiety arthritis Infuse-a- Port 3 removed 3 compartment syndrome with fasciotomy right forearm remote past left femoral fracture with open reduction internal fixation 2010 left knee radiation synovectomy in 2000 Hx Anticoagulant Therapy: Yes (hemophilia) Arthritis: Yes Blood Disorders: Yes (HEMOPHELIA) Anxiety: Yes Depression: No Cancer: No Cardiovascular Problems: No Chemotherapy: Yes Diminished Hearing: No Endocrine: No Gastrointestinal Disorders: Yes (history of ulcers) Genitourinary: No Immune Disorder: No Implanted Vascular Access Dvce: Yes Musculoskeletal: Yes Neurologic: No Psychiatric: Yes Reproductive: No Respiratory: No Radiation Therapy: No Ulcer: Yes Past Surgical History Body Medical Devices: L-femur plate with 8 scews, right SC port. Other Surgery: Yes (MEDIPORT, I&D LEFT KNEE, plate L femur, radioactive synovectomy R knee, ) Social History Alcohol Use: Yes (RARELY) Tobacco Use: Yes (one pack per day) Substance Use: No Allergies-Medications (Allergen,Severity, Reaction): Coded Allergies: diclofenac (Unverified Adverse Reaction, Severe, bleeding, 03/10/17) etodolac (Unverified Adverse Reaction, Severe, bleeding, 03/10/17) flurbiprofen (Unverified Adverse Reaction, Severe, bleeding, 03/10/17) ibuprofen (Unverified Adverse Reaction, Severe, bleeding, 03/10/17) indomethacin (Unverified Adverse Reaction, Severe, bleeding, 03/10/17) ketoprofen (Unverified Adverse Reaction, Severe, bleeding, 03/10/17) ketorolac (Unverified Adverse Reaction, Severe, bleeding, 03/10/17) naproxen (Unverified Adverse Reaction, Severe, bleeding, 03/10/17) oxaprozin (Unverified Adverse Reaction, Severe, bleeding, 03/10/17) *MDRO Multi-Drug Resistant Organism (Verified Adverse Reaction, Unknown, ) ESBL E. coli Blood 01/23/17 Reported Meds & Prescriptions Reported Meds & Active Scripts Active Levaquin (Levofloxacin) 750 Mg Tablet 750 Mg PO Q24H Oxycodone (Oxycodone HCl) 30 Mg Tab 30 Mg PO Q6H PRN Xanax (Alprazolam) 0.5 Mg Tab 0.5 Mg PO Q8H Wheelchair (Device) 1 Mis Mis 1 Ea .ROUTE DIRECTED Reported Novoseven Rt Inj (Factor VIIa (Recombinant)) 1 Mg Inj 10 Mcg IV Q4HR Feiba NF Inj (Antiinhibitor Coagulant Complex Inj) 500 Units Inj 7,500 Units INJ DAILY Review of Systems Except as stated in HPI: all other systems reviewed are Neg General / Constitutional: No: Fever, Chills HENT: No: Congestion Cardiovascular: No: Chest Pain or Discomfort Respiratory: No: Shortness of Breath Gastrointestinal: No: Abdominal Pain Genitourinary: No: Flank Pain Musculoskeletal: Positive: Limited ROM, Edema (right wrist secondary to pain and swelling), Pain (chronic bilateral elbow pain and right hip pain left knee pain and new right wrist pain) Skin: No Rash Neurologic: No: Weakness ( right wrist) Psychiatric: No: Anxiety Endocrine: No: Heat Intolerance Hematologic/Lymphatic: Positive: Easy Bruising Physical Exam Narrative GENERAL: Well-developed well-nourished male in no acute distress no respiratory distress appears somnolent. GCS 15. SKIN: Warm and dry. Healing ecchymosis to right chest wall; multiple needle tracks dorsum of bilateral upper extremities HEAD: Atraumatic. Normocephalic. No scalp soft tissue swelling and ecchymosis abrasion or laceration EYES: Pupils equal and round. Extraocular muscles intact. No scleral icterus. No injection or drainage. ENT: No nasal bleeding or discharge. No epistaxis. Mucous membranes pink and moist. Airway is patent. NECK: Trachea midline. No JVD. Supple nontender. CARDIOVASCULAR: Regular rate and rhythm. RESPIRATORY: No accessory muscle use. Clear to auscultation. Breath sounds equal bilaterally. GASTROINTESTINAL: Abdomen soft, non-tender, nondistended. Hepatic and splenic margins not palpable. MUSCULOSKELETAL: Extremities without clubbing, cyanosis, or edema. No obvious deformities. Patient with evidence of previous knee surgery to the left knee with soft tissue swelling without redness warmth or ecchymosis right hip without redness warmth or swelling or decreased range of motion. Right wrist with redness with brisk capillary refill less than 2 seconds soft tissue swelling handcuffs removed from right upper extremity NEUROLOGICAL: Somnolent. No obvious cranial nerve deficits. Motor grossly within normal limits. Five out of 5 muscle strength in the arms and legs. Normal speech. PSYCHIATRIC: Appropriate mood and affect; insight and judgment normal. Data Data Last Documented VS Vital Signs Date Time Temp Pulse Resp B/P (MAP) Pulse Ox O2 Delivery O2 Flow Rate FiO2 05/05/17 09:07 91 21 103/52 (69) 100 Nasal Cannula 2.00 05/05/17 06:[address] Brain W/O Iv Contrast(Rout) (05/05/17 ) Complete Blood Count With Diff (05/05/17 06:19) Prothrombin Time / Inr (Pt) (05/05/17 06:19) Act Partial Throm Time (Ptt) (05/05/17 06:19) Ct Wrist W/O Contrast (05/05/17 ) Vascular Access Team Consult/P PRN (05/05/17 07:17) Vascular Poc Ultrasound (05/05/17 ) Iv Access Insert/Monitor (05/05/17 07:17) Ecg Monitoring (05/05/17 07:17) Basic Metabolic Panel (Bmp) (05/05/17 07:17) Consult Hematology (05/05/17 ) Blood Culture (05/05/17 07:47) Lactic Acid (05/05/17 07:54) Anti-Inhibitor Coag Cmplx Inj (Feiba Nf (05/05/17 08:15) Vancomycin Inj (Vancomycin Inj) (05/05/17 08:15) (Hub Use Only)Inp Phy Cons/Ref (05/05/17 08:45) Admit Order (Ed Use Only) (05/05/17 09:31) Place In Observation (05/05/17 ) Vital Signs (Adult) Q4H (05/05/17 09:30) Activity Bed Rest (05/05/17 09:30) Sodium Chloride 0.9% Flush (Ns Flush) (05/05/17 09:30) Sodium Chloride 0.9% Flush (Ns Flush) (05/05/17 21:00) Ondansetron Inj (Zofran Inj) (05/05/17 09:30) Case Management Consult (05/05/17 09:30) Naloxone Inj (Narcan Inj) (05/05/17 09:30) Docusate Sodium-Senna (Kelli-Colace) (05/05/17 21:00) Magnesium Hydroxide Liq (Milk Of Magnesi (05/05/17 09:30) Sennosides (Senokot) (05/05/17 09:30) Bisacodyl Supp (Dulcolax Supp) (05/05/17 09:30) Lactulose Liq (Lactulose Liq) (05/05/17 09:30) Labs Laboratory Tests Test 05/05/17 08:35 05/05/17 08:41 White Blood Count 7.7 TH/MM3 Red Blood Count 3.99 MIL/MM3 Hemoglobin 11.2 GM/DL Hematocrit 33.9 % Mean Corpuscular Volume 84.9 FL Mean Corpuscular Hemoglobin 28.0 PG Mean Corpuscular Hemoglobin Concent 33.0 % Red Cell Distribution Width 16.6 % Platelet Count 337 TH/MM3 Mean Platelet Volume 6.8 FL Neutrophils (%) (Auto) 75.1 % Lymphocytes (%) (Auto) 15.9 % Monocytes (%) (Auto) 5.8 % Eosinophils (%) (Auto) 2.9 % Basophils (%) (Auto) 0.3 % Neutrophils # (Auto) 5.8 TH/MM3 Lymphocytes # (Auto) 1.2 TH/MM3 Monocytes # (Auto) 0.4 TH/MM3 Eosinophils # (Auto) 0.2 TH/MM3 Basophils # (Auto) 0.0 TH/MM3 CBC Comment DIFF FINAL Differential Comment Erythrocyte Sedimentation Rate 32 mm/hr Prothrombin Time 12.0 SEC Prothromb Time International Ratio 1.1 RATIO Activated Partial Thromboplast Time 109.5 SEC Blood Urea Nitrogen 9 MG/DL Creatinine 0.44 MG/DL Random Glucose 75 MG/DL Calcium Level 8.9 MG/DL Sodium Level 139 MEQ/L Potassium Level 3.4 MEQ/L Chloride Level 101 MEQ/L Carbon Dioxide Level 28.6 MEQ/L Anion Gap 9 MEQ/L Estimat Glomerular Filtration Rate 235 ML/MIN C-Reactive Protein 6.35 MG/DL Lactic Acid Level 0.7 mmol/L [facility] Medical Decision Making Medical Screen Exam Complete: Yes Emergency Medical Condition: Yes Medical Record Reviewed: Yes Interpretation(s) CT brain w/o: no bleed per radiologist Differential Diagnosis Medical clearance, ICH, anemia, right wrist hemarthrosis, fracture, pain medication overdose Narrative Course Specimens collected and patient sent for CT imaging of the head and wrist Care signed over to Alejandra Sanders MD May 05, 2017 06:44
--- NOTE | 2017-05-05 06:54 | RADRPT ---
EXAM DATE/TIME: 05/05/2017 06:35 [facility] COMPARISON: CT BRAIN W/O CONTRAST, December 27, 2016, 0:03. INDICATIONS : Altered mental status. RADIATION DOSE: 38.43 CTDIvol (mGy) MEDICAL HISTORY : Ulcers. SURGICAL HISTORY : None. ENCOUNTER: Initial ACUITY: 1 day PAIN SCALE: Non-responsive LOCATION: cranial TECHNIQUE: Multiple contiguous axial images were obtained of the head. Using automated exposure control and adj ustment of the mA and/or kV according to patient size, radiation dose was kept as low as reasonably a chievable to obtain optimal diagnostic quality images. DICOM format image data is available electro nically for review and comparison. 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 Brain is otherwise unremarkable. No evidence of mass or hemor rhage. Nothing to suggest acute infarction. Extracranial structures benign and intact. CONCLUSION: Stable brain appearance. No acute findings Ulysses Callahan MD on May 05, 2017 at 6:51 Board Certified Radiologist. This report was verified electronically.
--- NOTE | 2017-05-05 07:02 | RADRPT ---
EXAM DATE/TIME: 05/05/2017 06:39 [facility] COMPARISON: No previous studies available for comparison. INDICATIONS : Right wrist swelling. RADIATION DOSE: 15.57 CTDIvol (mGy) MEDICAL HISTORY : Ulcers. SURGICAL HISTORY : None. ENCOUNTER: Initial ACUITY: 1 day PAIN SCALE: Non-responsive LOCATION: Right wrist TECHNIQUE: Volumetric scanning of the wrist was performed. Using automated exposure control and adjustment of t he mA and/or kV according to patient size, radiation dose was kept as low as reasonably achievable to obtain optimal diagnostic quality images. DICOM format image data is available electronically for review and comparison. FINDINGS: Image quality is degraded secondary to patient arm positioning which results in quantum mottle. BONES: No fracture is identified. JOINTS: No dislocation is identified. There is a small erosion at the distal pole of the scaphoid. There is m ild joint space narrowing at the second through fourth digit carpometacarpal joints. SOFT TISSUES: There is subcutaneous edema appreciated. Muscles are not well-visualized secondary to the artifact. CONCLUSION: Subcutaneous edema. No acute osseous abnormality is identified. Ulysses Angel MD on May 05, 2017 at 6:55 Board Certified Radiologist. This report was verified electronically.
[2017-05-05 07:39] VITALS: BP 105/56; PULSE 91; RESP 16; O2SAT 97
--- NOTE | 2017-05-05 08:06 | PD ---
Physical Exam Narrative GENERAL: Well-nourished, well-developed patient. SKIN: Warm and dry. HEAD: Normocephalic and atraumatic. EYES: No injection or drainage. pinpoint pupils ENT: No nasal drainage noted. NECK: Supple, trachea midline. CARDIOVASCULAR: Regular rate and rhythm RESPIRATORY: no increased effort. No accessory muscle use. GASTROINTESTINAL: Abdomen nondistended. EXTREMITIES: Pain with palpation of right wrist with small amount of swelling- cuff removed, neurovascularly intact, no lacerations over, compartments soft. NEUROLOGICAL: drowsy but awakens to voice, moves extremities, slurred speech Data Data Last Documented VS Vital Signs Date Time Temp Pulse Resp B/P (MAP) Pulse Ox O2 Delivery O2 Flow Rate FiO2 05/05/17 09:07 91 21 103/52 (69) 100 Nasal Cannula 2.00 05/05/17 06:[address] Brain W/O Iv Contrast(Rout) (05/05/17 ) Urinalysis - C+S If Indicated (05/05/17 06:19) Drug Screen, Random Urine (05/05/17 06:19) Complete Blood Count With Diff (05/05/17 06:19) Prothrombin Time / Inr (Pt) (05/05/17 06:19) Act Partial Throm Time (Ptt) (05/05/17 06:19) Ct Wrist W/O Contrast (05/05/17 ) Vascular Access Team Consult/P PRN (05/05/17 07:17) Vascular Poc Ultrasound (05/05/17 ) Iv Access Insert/Monitor (05/05/17 07:17) Ecg Monitoring (05/05/17 07:17) Basic Metabolic Panel (Bmp) (05/05/17 07:17) Consult Hematology (05/05/17 ) Blood Culture (05/05/17 07:47) Lactic Acid (05/05/17 07:54) Anti-Inhibitor Coag Cmplx Inj (Feiba Nf (05/05/17 08:15) Vancomycin Inj (Vancomycin Inj) (05/05/17 08:15) (Hub Use Only)Inp Phy Cons/Ref (05/05/17 08:45) Admit Order (Ed Use Only) (05/05/17 09:31) Place In Observation (05/05/17 ) Vital Signs (Adult) Q4H (05/05/17 09:30) Activity Bed Rest (05/05/17 09:30) Diet Regular Basic (05/05/17 Breakfast) Sodium Chloride 0.9% Flush (Ns Flush) (05/05/17 09:30) Sodium Chloride 0.9% Flush (Ns Flush) (05/05/17 21:00) Ondansetron Inj (Zofran Inj) (05/05/17 09:30) Case Management Consult (05/05/17:30) Naloxone Inj (Narcan Inj) (05/05/17 09:30) Docusate Sodium-Senna (Kelli-Colace) (05/05/17 21:00) Magnesium Hydroxide Liq (Milk Of Magnesi (05/05/17 09:30) Sennosides (Senokot) (05/05/17 09:30) Bisacodyl Supp (Dulcolax Supp) (05/05/17 09:30) Lactulose Liq (Lactulose Liq) (05/05/17 09:30) Labs Laboratory Tests Test 05/05/17 08:35 05/05/17 08:41 White Blood Count 7.7 TH/MM3 Red Blood Count 3.99 MIL/MM3 Hemoglobin 11.2 GM/DL Hematocrit 33.9 % Mean Corpuscular Volume 84.9 FL Mean Corpuscular Hemoglobin 28.0 PG Mean Corpuscular Hemoglobin Concent 33.0 % Red Cell Distribution Width 16.6 % Platelet Count 337 TH/MM3 Mean Platelet Volume 6.8 FL Neutrophils (%) (Auto) 75.1 % Lymphocytes (%) (Auto) 15.9 % Monocytes (%) (Auto) 5.8 % Eosinophils (%) (Auto) 2.9 % Basophils (%) (Auto) 0.3 % Neutrophils # (Auto) 5.8 TH/MM3 Lymphocytes # (Auto) 1.2 TH/MM3 Monocytes # (Auto) 0.4 TH/MM3 Eosinophils # (Auto) 0.2 TH/MM3 Basophils # (Auto) 0.0 TH/MM3 CBC Comment DIFF FINAL Differential Comment Prothrombin Time 12.0 SEC Prothromb Time International Ratio 1.1 RATIO Activated Partial Thromboplast Time 109.5 SEC Blood Urea Nitrogen 9 MG/DL Creatinine 0.44 MG/DL Random Glucose 75 MG/DL Calcium Level 8.9 MG/DL Sodium Level 139 MEQ/L Potassium Level 3.4 MEQ/L Chloride Level 101 MEQ/L Carbon Dioxide Level 28.6 MEQ/L Anion Gap 9 MEQ/L Estimat Glomerular Filtration Rate 235 ML/MIN Lactic Acid Level 0.7 mmol/L MDM Supervised Visit with CHUY: No Interpretation(s) ct wrist no fracture, subcutaneous edema CBC & BMP Diagram 05/05/17 08:35 Calcium Level 8.9 Narrative Course signed over to me to follow labs and ct wrist and reeval patient without specific hemarthrosis on exam but given decreased mentation he will likely need to be observed in the hospital, will discuss with 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 Adam agrees to observation, altered mental status is likely from overmedication with narcotics given pinpoint pupils and decreased mentation versus coingestion, no indication for Narcan at this time, drug screen pending Physician Communication Physician Communication dr adam will see patient and provide orders for his hemophilia, agrees to admit in hospital, requests vancomycin to cover for cellulitis from injecting dr snell agrees to admit Diagnosis Primary Impression: Altered mental status Qualified Codes: R41.82 - Altered mental status, unspecified Additional Impressions: Hemophilia A Wrist pain, right Admitting Information Admitting Physician Requests: Observation Manjula Conrad MD May 05, 2017 08:06
[2017-05-05] MEDS ORDERED: ANTI-INHIBITOR COAGULANT COMPLEX 100 UNIT INJ IV ONE (08:15)
[2017-05-05] MEDS ORDERED: VANCOMYCIN INJ 1,000 MG in SODIUM CHLOR 0.9% 250 ML INJ 250 ML IV ONE (08:15)
--- NOTE | 2017-05-05 08:49 | MB ---
cc: JENNIFER HARPER DATE OF CONSULTATION 05/05/2017 CONSULT REQUESTED BY Emergency Department. DATE OF 1990. HEMATOLOGIC DIAGNOSIS Hemophilia A (intrinsic Factor VIII, activity level of less than 1%). He also has an associated high circulating Factor VIII inhibitor titer for which he is on bypassing agents including no NovoSeven and FEIBA. CHIEF COMPLAINT Fidel was brought in by the [place] [employer]. He was in handcuffs. He was arrested for some reason in earlier this morning. He was taken into [facility] but was sent from the [facility] to [facility] because his right wrist was swollen and painful. He was in handcuffs. The patient reports he thinks he may have bled in the subcutaneous tissue. 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 Fidel is originally from [place] and moved down to the [place] area in June of 2016. The patient came to me with high circulating factor inhibitor levels and had been on bypassing agents NovoSeven and FEIBA. He had significant sequelae of hemophilia including recurrent joint bleeds with resultant arthropathy. His mobility is severely limited due to issues with his right and left hip. He usually requires crutches or a wheelchair to move around. He also has recurrent bleeds in his shoulders, elbows and wrists. He has also had I believe a severe psoas muscle bleed since he has been under my care requiring prolonged hospitalization. In the past 6 months or so he has had repeated hospitalizations for various issues including infected wisdom teeth which required extraction, infected infusion port which required extraction, as well as repeated hospitalizations for pain management. At today's visit in the emergency department Fidel reports pain and swelling of his right wrist. He appears to have some edema and erythema. It is not known when his last dose of factor was delivered. At this point he is quite drowsy. His pupils are pinpoint and it appears he may have taken some sort of substance to sedate him. He is clearly not at his baseline mentation. PAST MEDICAL HISTORY 1. 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 2. Current smoker. 3. 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 4. Anxiety, depression. 5. Arthritis. PAST SURGICAL HISTORY 1. Multiple infusion port placement and removal. 2. Compartment syndrome and fasciotomies of the right forearm. 3. Removal of wisdom teeth. 4. Left femoral fracture with ORIF in 2010. 5. Left knee synovectomy in 2000. ALLERGIES NONSTEROIDAL ANTI-INFLAMMATORIES OF ALL TYPES INCLUDING IBUPROFEN, KETOROLAC, NAPROXEN, KETOPROFEN, INDOMETHACIN AND DICLOFENAC. FAMILY HISTORY No known oncologic diagnoses. He has had multiple brothers with hemophilia, all of whom have . SOCIAL HISTORY Fidel lives at home. He tells me he has a girlfriend. 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 This requires him to travel frequently. CURRENT INPATIENT MEDICATIONS No medications have been ordered. I will, however, order some fact replacement therapy. REVIEW OF SYSTEMS Could not obtain. The patient is quite sedated and drowsy. He is barely verbal. PHYSICAL EXAMINATION VITAL SIGNS: Temperature 98.6 degrees Fahrenheit, heart rate 91 beats/minute, respiratory rate 16, blood pressure 105/56, O2 sats are 97% on room air. GENERAL PHYSICAL APPEARANCE: Fidel is a young male. He is laying in bed, he appears to be sedated. He wakes up to verbal stimulus. He appears not to be in distress. HEENT: Head atraumatic, normocephalic. Conjunctivae are not pale. Sclerae are anicteric. Pupils are constricted and not reactive. Oral exam - dry mucous membranes. NECK EXAM: No palpable cervical or supraclavicular lymphadenopathy. RESPIRATORY EXAM: Good air movement bilaterally without any added breath sounds. CARDIOVASCULAR: Regular rate and rhythm, S1-S2. No obvious murmurs, rubs or gallops. ABDOMINAL EXAM: Protuberant belly, soft, no obvious tenderness, no organ enlargement. LOWER EXTREMITIES: No pretibial edema. No calf tenderness. He does have a bruise on the back of his right calf. UPPER EXTREMITIES: The left upper extremity appears to be at baseline without any skin changes, bruising, lacerations or tenderness. The right hand and distal forearm appears to be edematous, erythymatous. He has numerous puncture rice involving the base of the thumb, tracking towards his wrist. He has additional rice along his wrist on the extensor surface. There appears to be no joint immobility. 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 LABORATORY FINDINGS No recent labs are available for review. He is awaiting CBC, CMP and coags. IMAGING STUDIES CT scan of the head dated 05/05/2017: Stable brain appearance without acute findings. Specifically no evidence of bleeding. CT scan of the right upper extremity indicates subcutaneous edema at the level of the wrist, no osseous abnormalities identified. Specifically in the joints there is no dislocation. There is small erosion on the distal pole of the scaphoid but other than that, no hemarthrosis clearly noted. ASSESSMENT Mr. Gonzalez is a 26-year-old male with hemophilia A associated with high circulating Factor VIII inhibitor titers. He follows with me on and off in clinic. He missed his most recent follow-up visit with me last week. He instead called and told me he had to travel to [place] and requested I refill his pain medications because he was unable to find a auto body painter who was willing to take his case. For management of his hemophilia A the patient remains on every 12-hour dosing of NovoSeven and FEIBA. (He takes each formulation once per day but alternates them q.12 hours). This regimen for the most part has been sufficient in managing his hemophilia and preventing major bleeds. I would like to say that his hemophilia seems to be managed very well when he is an inpatient, he has undergone minor surgical procedures including port removal and wisdom teeth extraction with minimal bleeding when his factors are infused appropriately. When he is not in the hospital he tends to develop bleeds and hemarthroses and psoas muscle bleeds. He tells me this is usually because of ambulation. Unfortunately Fidel was arrested last night or early this morning for some form of a violation. He was taken to the [facility] and was sent immediately to [facility] for medical clearance because he was reporting pain and swelling of his right wrist. He also identified himself as a hemophiliac. I have reviewed his imaging studies as well as examined him thoroughly. It appears that he does not have hemarthrosis of the right wrist but he does appear to have what looks like cellulitis of the right wrist. The likely cause is multiple puncture wounds where I presume he has accessed his veins for injection. He tells me he has only accessed his veins for delivery of factors. At the time of examination Fidel was quite sedated, he has pinpoint pupils and it appears that he may be under the influence of some sort of medication. He is on long and short-acting opioids for management of hemophilia-associated arthrosis. RECOMMENDATIONS Hemophilia A: Continue factor replacement. I would like him to receive his outpatient dosing. He receives NovoSeven 10 mg IV every 24 hours alternating with FEIBA 7500 units every 24 hours. This is delivered in a way that he receives some sort of factor every 12 hours. In the absence of a major bleed, we do not need to increase the frequency. Urine toxicology is pending at this time. It would seem reasonable to keep them under observation a for period of time. MD DAVID Tate/CONRAD /7:51 AM /8:16 AM
[2017-05-05 08:59] LABS: AUTOMATED NEUTROPHIL # 5.8 TH/MM3 (1.8-7.7); BASOPHIL % 0.3 % (0.0-2.0); EOSINOPHIL # 0.2 TH/MM3 (0-0.4); EOSINOPHIL % 2.9 % (0.0-4.0); HEMATOCRIT 33.9 % (39.0-51.0); HEMO FLAGS DIFF FINAL; LYMPH % 15.9 % (9.0-44.0); LYMPHOCYTE # 1.2 TH/MM3 (1.0-4.8); MEAN CELL VOLUME 84.9 FL (80.0-100.0); MONO % 5.8 % (0.0-8.0); NEUT % 75.1 % (16.0-70.0); PLATELET COUNT 337 TH/MM3 (150-450); RED BLOOD COUNT 3.99 MIL/MM3 (4.50-5.90); RED CELL DISTRIBUTION WIDTH 16.6 % (11.6-17.2); WHITE BLOOD COUNT 7.7 TH/MM3 (4.0-11.0)
[2017-05-05 09:07] VITALS: BP 103/52; PULSE 91; RESP 21; O2SAT 100
[2017-05-05 09:15] LABS: BICARBONATE 28.6 MEQ/L (21.0-32.0); POTASSIUM 3.4 MEQ/L (3.5-5.1)
[2017-05-05 09:26] LABS: INTERNATIONAL NORMALIZED RATIO 1.1 RATIO
[2017-05-05 09:28] LABS: APTT (PATIENT) 109.5 SEC (24.3-30.1)
[2017-05-05] MEDS ORDERED: NALOXONE HCL 0.4 MG/ML AMP IV PUSH PRN (09:30)
[2017-05-05] MEDS ORDERED: SENNOSIDES 8.6 MG TAB PO PRN (09:30)
[2017-05-05] MEDS ORDERED: ONDANSETRON HCL 4 MG/2 ML VIAL IVP PRN (09:30)
[2017-05-05] MEDS ORDERED: LACTULOSE SYRUP 20 GM/30 ML CUP PO PRN (09:30)
[2017-05-05] MEDS ORDERED: MAGNESIUM HYDROXIDE SUSP 30 ML CUP PO PRN (09:30)
[2017-05-05] MEDS ORDERED: BISACODYL 10 MG SUPP RECTAL PRN (09:30)
[2017-05-05] MEDS ORDERED: SODIUM CHLORIDE 0.9% FLUSH 10 ML FLUSH IV FLUSH PRN (09:30)
--- NOTE | 2017-05-05 11:48 | HHI.HP ---
[facility] Unknown Admission Diagnosis altered mental status, hemophilia Diagnoses: Chief Complaint: AMS Travel History International Travel<30 Days: No Contact w/Intl Traveler <30 Da: No Traveled to Known Affected Are: No History of Present Illness This is a 26-year-old male with hemophilia A, chronic dependence on narcotics, and hx hemarthrosis who presented with mental status. Patient was arrested this morning due using counterfeit money. They've commander police reserves was at the bedside stated that he became altered today brought into the ED because they could not take off her patients. During patient's examination in the emergency department he was found to be sedated with pinpoint pupils and was given Narcan that reverse his sedation. When I examined the patient he was found to have a tray of food on his labs with him holding his drink sleeping with crumbs on his mouth. When I woke him off until the food and drink away patient stated that he wanted to eat. When asked about his right hand being swollen he stated happened because he was handcuffed by the commander police reserves. I saw multiple tracking on his arm, hand, wrist and I asked patient if he did IV drugs he denied IV drug use. Asked patient is taking any type of drugs that is making him very sedated he denied. All other review systems reviewed and negative. Two commander police reserves and ED nurse were at bedside during interview. Past Family Social History Past Medical History 1. 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 2. Current smoker. 3. 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 4. Anxiety, depression. 5. Arthritis. Past Surgical History 1. Multiple infusion port placement and removal. 2. Compartment syndrome and fasciotomies of the right forearm. 3. Removal of wisdom teeth. 4. Left femoral fracture with ORIF in 2010. 5. Left knee synovectomy in 2000. Reported Medications Reported Meds & Active Scripts Active Levaquin (Levofloxacin) 750 Mg Tablet 750 Mg PO Q24H Oxycodone (Oxycodone HCl) 30 Mg Tab 30 Mg PO Q6H PRN Xanax (Alprazolam) 0.5 Mg Tab 0.5 Mg PO Q8H Wheelchair (Device) 1 Mis Mis 1 Ea .ROUTE DIRECTED Reported Novoseven Rt Inj (Factor VIIa (Recombinant)) 1 Mg Inj 10 Mcg IV Q4HR Feiba NF Inj (Antiinhibitor Coagulant Complex Inj) 500 Units Inj 7,500 Units INJ DAILY Allergies: Coded Allergies: diclofenac (Unverified Adverse Reaction, Severe, bleeding, 03/10/17) etodolac (Unverified Adverse Reaction, Severe, bleeding, 03/10/17) flurbiprofen (Unverified Adverse Reaction, Severe, bleeding, 03/10/17) ibuprofen (Unverified Adverse Reaction, Severe, bleeding, 03/10/17) indomethacin (Unverified Adverse Reaction, Severe, bleeding, 03/10/17) ketoprofen (Unverified Adverse Reaction, Severe, bleeding, 03/10/17) ketorolac (Unverified Adverse Reaction, Severe, bleeding, 03/10/17) naproxen (Unverified Adverse Reaction, Severe, bleeding, 03/10/17) oxaprozin (Unverified Adverse Reaction, Severe, bleeding, 03/10/17) *MDRO Multi-Drug Resistant Organism (Verified Adverse Reaction, Unknown, ) ESBL E. coli Blood 01/23/17 Active Ordered Medications Current Medications Anti-Inhibitor Coagulant Complex (Feiba Nf Inj) 7,500 units ONCE ONCE IV Last administered on 05/05/17 09:38; Start 05/05/17 at 08:15; Stop 05/05/17 at 08 :19; Status DC Vancomycin HCl 1000 mg/Sodium Chloride 250 ml @ 250 mls/hr ONCE ONCE IV Last administered on 05/05/17 09:24; Start 05/05/17 at 08:15; Stop 05/05/17 at 09 :14; Status DC Sodium Chloride (NS Flush) 2 ml UNSCH PRN IV FLUSH FLUSH AFTER USING IV ACCESS ; Start 05/05/17 at 09:30 Sodium Chloride (NS Flush) 2 ml BID IV FLUSH ; Start 05/05/17 at 21:00 Ondansetron HCl (Zofran Inj) 4 mg Q6H PRN IVP NAUSEA OR VOMITING; Start at 09:30 Naloxone HCl (Narcan Inj) 0.4 mg UNSCH PRN IV PUSH SEE LABEL COMMENTS; Start 05/05/17 at 09:30 Senna/Docusate Sodium (Kelli-Colace) 1 tab BID PO ; Start 05/05/17 at 21:00 Magnesium Hydroxide (Milk Of Magnesia Liq) 30 ml Q12H PRN PO MILD - MODERATE CONSTIPATION; Start 05/05/17 at 09:30 Sennosides (Senokot) 17.2 mg Q12H PRN PO MODERATE - SEVERE CONSTIPATION; Start 05/05/17 at 09:30 Bisacodyl (Dulcolax Supp) 10 mg DAILY PRN RECTAL SEVERE CONSITIPATION; Start 05/05/17 at 09:30 Lactulose (Lactulose Liq) 30 ml DAILY PRN PO SEVERE CONSITIPATION; Start 05/05 at 09:30 Family History No known oncologic diagnoses. He has had multiple brothers with hemophilia, all of whom have . Social History Fidel lives at home. He works for [employer]. Physical Exam Vital Signs Vital Signs Date Time Temp Pulse Resp B/P (MAP) Pulse Ox O2 Delivery O2 Flow Rate FiO2 05/05/17 11:18 05/05/17 09:07 91 21 103/52 (69) 100 Nasal Cannula 2.00 05/05/17 07:39 91 16 105/56 (72) 97 Room Air 05/05/17 06:10 98.6 106 14 128/68 (88) 97 Physical Exam GENERAL: Patient.is in no acute distress SKIN: Multiple tracking on bilateral hand and wrist. Right hand swelling but no erythema does show multiple tracking's. No warmth to the area. No tenderness to palpation. HEAD: Atraumatic. Normocephalic. No temporal or scalp tenderness. EYES: Pupils equal round and reactive. Extraocular motions intact. No scleral icterus. No injection or drainage. ENT: Nose without bleeding, purulent drainage or septal hematoma. Throat without erythema, tonsillar hypertrophy or exudate. Uvula midline. Airway patent. NECK: Trachea midline. No JVD or lymphadenopathy. Supple, nontender, no meningeal signs. CARDIOVASCULAR: Regular rate and rhythm without murmurs, gallops, or rubs. RESPIRATORY: Clear to auscultation. Breath sounds equal bilaterally. No wheezes , rales, or rhonchi. GASTROINTESTINAL: Abdomen soft, non-tender, nondistended. No hepato-splenomegaly , or palpable masses. No guarding. MUSCULOSKELETAL: Extremities without clubbing, cyanosis, or edema. No joint tenderness, effusion, or edema noted. No calf tenderness. Negative Homans sign bilaterally. NEUROLOGICAL: intermittently sedative. Cranial nerves II through XII intact. Motor and sensory grossly within normal limits. Five out of 5 muscle strength in all muscle groups. Normal speech. Laboratory Laboratory Tests Test 05/05/17 08:35 05/05/17 08:41 White Blood Count 7.7 Red Blood Count 3.99 Hemoglobin 11.2 Hematocrit 33.9 Mean Corpuscular Volume 84.9 Mean Corpuscular Hemoglobin 28.0 Mean Corpuscular Hemoglobin Concent 33.0 Red Cell Distribution Width 16.6 Platelet Count 337 Mean Platelet Volume 6.8 Neutrophils (%) (Auto) 75.1 Lymphocytes (%) (Auto) 15.9 Monocytes (%) (Auto) 5.8 Eosinophils (%) (Auto) 2.9 Basophils (%) (Auto) 0.3 Neutrophils # (Auto) 5.8 Lymphocytes # (Auto) 1.2 Monocytes # (Auto) 0.4 Eosinophils # (Auto) 0.2 Basophils # (Auto) 0.0 CBC Comment DIFF FINAL Differential Comment Prothrombin Time 12.0 Prothromb Time International Ratio 1.1 Activated Partial Thromboplast Time 109.5 Blood Urea Nitrogen 9 Creatinine 0.44 Random Glucose 75 Calcium Level 8.9 Sodium Level 139 Potassium Level 3.4 Chloride Level 101 Carbon Dioxide Level 28.6 Anion Gap 9 Estimat Glomerular Filtration Rate 235 Lactic Acid Level 0.7 Date/Time Source Procedure Growth Status 05/05/17 08:40 Blood Peripheral Aerobic Blood Culture Pending Received 05/05/17 08:40 Blood Peripheral Anaerobic Blood Culture Pending Received Result Diagram: 05/05/17 0835 05/05/17 0835 Imaging Last Impressions Upper Extremity CT 05/05/17 0000 Signed Impressions: Service Date/Time: Friday, May 05, 2017 06:39 - CONCLUSION: Subcutaneous edema. No acute osseous abnormality is identified. Ulysses Angel MD Head CT 05/05/17 0000 Signed Impressions: Service Date/Time: Friday, May 05, 2017 06:35 - CONCLUSION: Stable brain appearance. No acute findings MD Jerod Welsh VTE Risk Assessment Jerod VTE Risk Assessment: No/Low Risk (score <= 1) VTE Pharm Contraindication: Hemorrhage Caprini Risk Assessment Model Point Value = 1 Point Value = 2 Point Value = 3 Point Value = 5 Age 41-60 Minor surgery BMI > 25 kg/m2 Swollen legs Varicose veins or History of unexplained or recurrent spontaneous Oral contraceptives or hormone replacement Sepsis (< 1 month) Serious lung disease, including pneumonia (< 1 month) Abnormal pulmonary function Acute myocardial infarction Congestive heart failure (< 1 month) History of inflammatory bowel disease Medical patient at bed rest Age 61-74 Arthroscopic surgery Major open surgery (> 45 min) Laparoscopic surgery (> 45 min) Malignancy Confined to bed (> 72 hours) Immobilizing plaster cast Central venous access Age >= 75 History of VTE Family history of VTE Factor V Leiden Prothrombin [id number] Lupus anticoagulant Anticardiolipin antibodies Elevated serum homocysteine Heparin-induced thrombocytopenia Other congenital or acquired thrombophilia Stroke (< 1 month) Elective arthroplasty Hip, pelvis, or leg fracture Acute spinal cord injury (< 1 month) Prophylaxis Regimen Total Risk Factor Score Risk Level Prophylaxis Regimen 0-1 Low Early ambulation 2 Moderate Order ONE of the following: *Sequential Compression Device (SCD) *Heparin 5000 units SQ BID 3-4 Higher Order ONE of the following medications: *Heparin 5000 units SQ TID *Enoxaparin/Lovenox 40 mg SQ daily (WT < 150 kg, CrCl > 30 mL/min) *Enoxaparin/Lovenox 30 mg SQ daily (WT < 150 kg, CrCl > 10-29 mL/min) *Enoxaparin/Lovenox 30 mg SQ BID (WT < 150 kg, CrCl > 30 mL/min) AND/OR *Sequential Compression Device (SCD) 5 or more Highest Order ONE of the following medications: *Heparin 5000 units SQ TID (Preferred with Epidurals) *Enoxaparin/Lovenox 40 mg SQ daily (WT < 150 kg, CrCl > 30 mL/min) *Enoxaparin/Lovenox 30 mg SQ daily (WT < 150 kg, CrCl > 10-29 mL/min) *Enoxaparin/Lovenox 30 mg SQ BID (WT < 150 kg, CrCl > 30 mL/min) AND *Sequential Compression Device (SCD) Assessment and Plan Assessment and Plan 26-year-old male with history of hemophilia, narcotic dependence, and hemarthrosis who presented with altered mental status Altered mental status -CT scan of the brain was negative and patient presented with pinpoint pupils and was given Narcan which improved altered mental status. -Most likely secondary to drug overdose. -Urine drug screen was ordered in the emergency department still pending urine drug screen. -My suspicion is that patient may be an IV drug user since he has multiple on his wrist, hand, and arm. -We'll continue to monitor clinically. -Currently patient gets intermittently sedated. Concerning for aspiration. Will place patient nothing by mouth and determined later on if patient can have oral intake. Swelling of the right hand. -CT scan of the upper extremity show edema. Will get a Doppler. Most likely this is from possible IV drug use. -I do not see any signs of cellulitis. Patient has no white count and no signs of infection. We will get a sedimentation rate and CRP. -He was given a dose of Zosyn and vancomycin in ED. Will treat empirically with doxycycline. Narcotic dependence -Questionable IV drug use on physical examination. -Education given the patient continued to denied any illicit drug use. -Pending urine drug screen. Hemophilia A - oncologist already consulted. Management per oncologist. DVT prophylaxis -SCDs discussed with patient's nurse. Discussed Condition With patient and his nurse Laura Powers MD May 05, 2017 11:48
[2017-05-05] MEDS ORDERED: DOXYCYCLINE HYCLATE 100 MG CAP PO SCH (12:00)
--- NOTE | 2017-05-05 12:53 | RADRPT ---
EXAM DATE/TIME: 05/05/2017 11:50 [facility] COMPARISON: US ARM RIGHT VENOUS DOPPLER, December 15, 2016, 19:08. INDICATIONS : Right arm swelling after handcuffs placed in right wrist. MEDICAL HISTORY : Hemophilia. SURGICAL HISTORY : Port. ENCOUNTER: Initial ACUITY: 1 day PAIN SCORE: Non-responsive LOCATION: Right arm. FINDINGS: There is spontaneous flow documented in the brachial, basilic, cephalic, axillary, and subclavian vei ns. The vessels are compressible and augmentation response is documented. No filling defects are se en. The flow is phasic with respiration. Direction of flow in the jugular vein is caudal. Large lymph node is identified in the right axilla measuring 2.2 x 3.2 x 1.9 cm in size. CONCLUSION: 1. No evidence of superficial or deep venous thrombosis. 2. 3.2 cm enlarged axillary lymph node. Skip Villa MD on May 05, 2017 at 12:47 Board Certified Radiologist. This report was verified electronically.
--- NOTE | 2017-05-05 20:31 | PD.AMA ---
Against Medical Advice Note Discharge Disposition: Against Medical Advice Pt Condition on Discharge: Good Recommended Treatment Course After patient was seen by me for his admission, he did well and was very alert AAO X3. Answers questions appropriately. He requested throughout his course to leave AMA but was under arrest. Then a court order release him where he was no longer under arrest. Patient took his IV out and requested to leave AMA. AMA Statement Patient Fidel Campuzano Jr Lisa has decided to leave the hospital against medical advice. This patient has the capacity to refuse care and understands the risks of leaving, including permanent disability and/or , and has had an opportunity to ask questions about his condition. The patient has been informed that he may return for care at any time, and follow up has been arranged/advised. Laura Powers MD May 05, 2017 20:31
[2017-05-05] MEDS ORDERED: DOCUSATE SODIUM 50 MG/SENNA 8.6 MG TAB PO SCH (21:00)
[2017-05-05] MEDS ORDERED: SODIUM CHLORIDE 0.9% FLUSH 10 ML FLUSH IV FLUSH SCH (21:00)
== END 2017-05-05 16:57 | disposition home or self-care (01) ==
LOC: NEPC 05:41 → NEDA 09:33 → NEPHCDU 11:57
PROVIDERS: ADMIT Family Medicine; ATTEND Family Medicine
DX: R41.82 Altered mental status, unspecified (principal); T50.901A Poisoning by unspecified drugs, medicaments and biological substances, accidental (unintentional), initial encounter; M79.89 Other specified soft tissue disorders; D66 Hereditary factor VIII deficiency; R60.0 Localized edema; M25.531 Pain in right wrist; M25.00 Hemarthrosis, unspecified joint; M25.562 Pain in left knee; M25.551 Pain in right hip; G89.29 Other chronic pain; F41.9 Anxiety disorder, unspecified; F32.9 Major depressive disorder, single episode, unspecified; M12.9 Arthropathy, unspecified; F11.20 Opioid dependence, uncomplicated; M19.90 Unspecified osteoarthritis, unspecified site; F17.200 Nicotine dependence, unspecified, uncomplicated; Z79.899 Other long term (current) drug therapy
CPT/HCPCS: 70450; 73200; 80048; 83605; 85025; 85610; 85652; 85730; 86140; 87040; 93971; 96374; G0378; J3370; J7050; J7198

== ENCOUNTER 2017-05-17 00:01 | Emergency (ER) | payer MEDICARE, OTHER ==
[~2017-05-17] VITALS: Ht 177.8 cm; Wt 80.0 kg
[2017-05-17 00:04] VITALS: BP 131/90; PULSE 120; RESP 20; TEMP 98.6; O2SAT 99
[2017-05-17] MEDS ORDERED: SODIUM CHLOR 0.9% 1000 ML INJ 1,000 ML IV SCH (00:19)
[2017-05-17] MEDS ORDERED: SODIUM CHLORIDE 0.9% FLUSH 10 ML FLUSH IV FLUSH PRN (00:30)
[2017-05-17] MEDS ORDERED: HYDROmorphone HCL PF 1 MG/ML VIAL IVS ONE (00:30)
[2017-05-17] MEDS ORDERED: ONDANSETRON HCL 4 MG/2 ML VIAL IVP ONE (00:30)
[2017-05-17] MEDS ORDERED: HYDROmorphone HCL PF 0.5 MG/0.5 ML SYRINGE IV PUSH ONE ×5 (00:30→02:15)
--- NOTE | 2017-05-17 00:53 | RADRPT ---
EXAM DATE/TIME: 05/17/2017 00:39 [facility] COMPARISON: No previous studies available for comparison. INDICATIONS : Left foot pain after fall. MEDICAL HISTORY : None. SURGICAL HISTORY : None. ENCOUNTER: Initial ACUITY: 1 day PAIN SCORE: 10/10 LOCATION: Left foot, dorsal metatarsals. FINDINGS: A limited to view examination of the left foot was obtained and not a standard three-view trauma seri es limiting sensitivity. There is demonstrates no soft tissue swelling, dislocation, or fracture. Th e calcaneus is intact. Bony mineralization is normal. CONCLUSION: Negative limited 2 view trauma study. Pj Sinha MD on May 17, 2017 at 0:51 Board Certified Radiologist. This report was verified electronically.
[2017-05-17 00:59] LABS: AUTOMATED NEUTROPHIL # 12.8 TH/MM3 (1.8-7.7); BASOPHIL % 0.2 % (0.0-2.0); EOSINOPHIL # 0.3 TH/MM3 (0-0.4); HEMATOCRIT 39.3 % (39.0-51.0); HEMO FLAGS DIFF FINAL; LYMPH % 11.6 % (9.0-44.0); LYMPHOCYTE # 1.9 TH/MM3 (1.0-4.8); MEAN CELL VOLUME 81.8 FL (80.0-100.0); MEAN CORPUSCULAR HEMOGLOBIN 27.6 PG (27.0-34.0); MEAN CORPUSCULAR HGB CONC 33.7 % (32.0-36.0); MONO % 8.7 % (0.0-8.0); NEUT % 77.5 % (16.0-70.0); PLATELET COUNT 310 TH/MM3 (150-450); RED CELL DISTRIBUTION WIDTH 15.3 % (11.6-17.2); WHITE BLOOD COUNT 16.6 TH/MM3 (4.0-11.0)
[2017-05-17 01:12] LABS: BICARBONATE 21.6 MEQ/L (21.0-32.0); POTASSIUM 3.4 MEQ/L (3.5-5.1)
[2017-05-17] MEDS ORDERED: SODIUM CHLOR 0.9% 1000 ML INJ 1,000 ML IV ONE (01:30)
[2017-05-17 02:15] VITALS: BP 148/97; PULSE 100; RESP 22; O2SAT 96
[2017-05-17] MEDS ORDERED: LORazepam 2 MG/ML VIAL IV PUSH ONE (02:15)
[2017-05-17 02:20] LABS: APTT (PATIENT) 96.9 SEC (24.3-30.1); PROTHROMBIN TIME - PATIENT 9.3 SEC (9.8-11.6)
[2017-05-17 02:22] LABS: INTERNATIONAL NORMALIZED RATIO 0.8 RATIO
[2017-05-17] MEDS ORDERED: IOHEXOL 350 MG/ML 10 ML VIAL (for RAD DIAG) IVCONTRAST ONE (02:24)
--- NOTE | 2017-05-17 03:01 | RADRPT ---
EXAM DATE/TIME: 05/17/2017 02:21 [facility] COMPARISON: CT ABDOMEN & PELVIS W CONTRAST, October 11, 2016, 20:53. INDICATIONS : Abdominal pain after fall. History of hemophilia. IV CONTRAST: 97 cc Omnipaque 350 (iohexol) IV ORAL CONTRAST: No oral contrast ingested. RADIATION DOSE: 10.68 CTDIvol (mGy) MEDICAL HISTORY : Ulcers. Hemophilia. SURGICAL HISTORY : None. ENCOUNTER: Initial ACUITY: 1 day PAIN SCALE: 4/10 LOCATION: Bilateral abdomen TECHNIQUE: Volumetric scanning of the abdomen and pelvis was performed. Using automated exposure control and ad justment of the mA and/or kV according to patient size, radiation dose was kept as low as reasonably achievable to obtain optimal diagnostic quality images. DICOM format image data is available electro nically for review and comparison. FINDINGS: LOWER LUNGS: The visualized lower lungs are clear. LIVER: Homogeneous density without lesion. There is no dilation of the biliary tree. No calcified gallston es. SPLEEN: There is mild splenomegaly with no focal lesion. PANCREAS: Within normal limits. KIDNEYS: Normal in size and shape. There is no mass, stone or hydronephrosis. ADRENAL GLANDS: Within normal limits. VASCULAR: There is no aortic aneurysm. BOWEL/MESENTERY: The stomach, small bowel, and colon demonstrate no acute abnormality. There is no free intraperitone al air or fluid. ABDOMINAL WALL: Within normal limits. RETROPERITONEUM: There is no lymphadenopathy. BLADDER: No wall thickening or mass. REPRODUCTIVE: Within normal limits. INGUINAL: There is no lymphadenopathy or hernia. MUSCULOSKELETAL: Degenerative changes are noted in the right hip with joint space loss, sclerosis and spurring. CONCLUSION: 1. No evidence of acute hemorrhage. 2. Mild splenomegaly with no focal lesion. 3. At least moderate degenerative change in the right hip. Pj Sinha MD on May 17, 2017 at 2:57 Board Certified Radiologist. This report was verified electronically.
--- NOTE | 2017-05-17 03:07 | RADRPT ---
EXAM DATE/TIME: 05/17/2017 02:21 [facility] COMPARISON: CT ELBOW LEFT W/O CONTRAST, December 10, 2016, 19:14. INDICATIONS : Trauma, fall. Left elbow pain. RADIATION DOSE: ; Reconstructed from previous dataset, no dose MEDICAL HISTORY : Ulcers. Hemophilia. SURGICAL HISTORY : None. ENCOUNTER: Initial ACUITY: 1 day PAIN SCALE: 7/10 LOCATION: Left elbow TECHNIQUE: Volumetric scanning of the elbow was performed. Using automated exposure control and adjustment of t he mA and/or kV according to patient size, radiation dose was kept as low as reasonably achievable to obtain optimal diagnostic quality images. DICOM format image data is available electronically for r eview and comparison. FINDINGS: BONES: No evidence of fracture. Alignment is within normal limits. JOINTS: Degenerative changes are again noted in the ulnar trochlear joint and radial capitellar joint with sylvia int space loss, sclerosis and mild spurring. SOFT TISSUES: Muscles, tendons and neurovascular structures are grossly unremarkable. No evidence of mass, organize d fluid collection, or foreign body. CONCLUSION: 1. No acute fracture or malalignment. 2. Stable degenerative change. Pj Sinha MD on May 17, 2017 at 3:02 Board Certified Radiologist. This report was verified electronically.
[2017-05-17 03:30] VITALS: BP 159/86; PULSE 110; RESP 18; O2SAT 98
--- NOTE | 2017-05-17 04:01 | PD ---
HPI Chief Complaint: Fall Time Seen by Provider: 00:19 Travel History International Travel<30 days: No Contact w/Intl Traveler<30days: No Traveled to known affect area: No History of Present Illness HPI 36 year-old male presents to the emergency department for complaint of left elbow pain with swelling left foot pain and swelling and bruising to the left upper abdomen and flank area reportedly after a non-syncopal. And fall while in the shower just prior to arrival to the emergency department. 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 Patient takes NovoSeven 10 mg every 24 hours alternating with FEIBA 7500 units every 24 hours therefore receiving replacement therapy every 12 hours; patient reports his last dose was at 9 PM. Patient states he did not hit his head did not have loss of consciousness did not injure his neck did not injure his back did not injure his chest is had no shortness of breath but does complain of severe pain to the elbow foot and mild pain to the left upper flank area. Patient notes a new bruise approximately 7 cm x 6 cm. Patient complains of marked left foot pain and no deformity is noted minimal swelling and no ecchymosis. Patient denies any fever or chills. Denies nausea vomiting. Patient states she's been taking his factor replacement as prescribed. Patient is currently under the care of a day light relief operator in [place] but is followed locally by Dr. Adam for any urgent/ emergent concerns. [facility] Past Medical History Narrative Medical Hemophilia A tobacco use; nursing notes reviewed Hx Anticoagulant Therapy: Yes (hemophilia) Arthritis: Yes Blood Disorders: Yes (HEMOPHELIA A) Anxiety: Yes Depression: No Cancer: No Cardiovascular Problems: No Chemotherapy: Yes Diminished Hearing: No Endocrine: No Gastrointestinal Disorders: Yes (history of ulcers) Genitourinary: No Immune Disorder: No Implanted Vascular Access Dvce: Yes Musculoskeletal: Yes Neurologic: No Psychiatric: Yes Reproductive: No Respiratory: No Radiation Therapy: No Ulcer: Yes Influenza Vaccination: No Past Surgical History Body Medical Devices: L-femur plate with 8 scews, right SC port. Other Surgery: Yes (MEDIPORT, I&D LEFT KNEE, plate L femur, radioactive synovectomy L knee, ) Social History Alcohol Use: Yes (RARELY) Tobacco Use: Yes (one pack per day) Substance Use: No Allergies-Medications (Allergen,Severity, Reaction): Coded Allergies: diclofenac (Unverified Adverse Reaction, Severe, bleeding, 03/10/17) etodolac (Unverified Adverse Reaction, Severe, bleeding, 03/10/17) flurbiprofen (Unverified Adverse Reaction, Severe, bleeding, 03/10/17) ibuprofen (Unverified Adverse Reaction, Severe, bleeding, 03/10/17) indomethacin (Unverified Adverse Reaction, Severe, bleeding, 03/10/17) ketoprofen (Unverified Adverse Reaction, Severe, bleeding, 03/10/17) ketorolac (Unverified Adverse Reaction, Severe, bleeding, 03/10/17) naproxen (Unverified Adverse Reaction, Severe, bleeding, 03/10/17) oxaprozin (Unverified Adverse Reaction, Severe, bleeding, 03/10/17) *MDRO Multi-Drug Resistant Organism (Verified Adverse Reaction, Unknown, ) ESBL E. coli Blood 01/23/17 Reported Meds & Prescriptions Reported Meds & Active Scripts Active Percocet (Oxycodone-Acetaminophen) 5-325 mg Tab 1 Tab PO Q6H PRN Oxycodone (Oxycodone HCl) 30 Mg Tab 30 Mg PO Q6H PRN Xanax (Alprazolam) 0.5 Mg Tab 0.5 Mg PO Q8H Wheelchair (Device) 1 Mis Mis 1 Ea .ROUTE DIRECTED Reported Novoseven Rt Inj (Factor VIIa (Recombinant)) 1 Mg Inj 10 Mcg IV Q4HR Feiba NF Inj (Antiinhibitor Coagulant Complex Inj) 500 Units Inj 7,500 Units INJ DAILY Review of Systems Except as stated in HPI: all other systems reviewed are Neg General / Constitutional: No: Fever, Chills HENT: No: Congestion Cardiovascular: No: Chest Pain or Discomfort Respiratory: No: Shortness of Breath Gastrointestinal: No: Nausea, Abdominal Pain Genitourinary: No: Flank Pain Musculoskeletal: Positive: Pain (left foot greater than left elbow greater than abdominal wall), No: Myalgias, Arthralgias Skin: No Rash Psychiatric: Positive: Anxiety Hematologic/Lymphatic: Positive: Easy Bruising Physical Exam Narrative GENERAL: Well-developed well-nourished male yelling out screaming in pain and no respiratory distress; GCS 15 SKIN: Warm and dry. Left upper quadrant just anterior to midaxillary line ecchymotic area without hematoma 7 cm x 6 cm minimally tender to palpation HEAD: Normocephalic. EYES: No scleral icterus. No injection or drainage. NECK: Supple, trachea midline. No JVD or lymphadenopathy. CARDIOVASCULAR: Increased Regular rate and rhythm without murmurs, gallops, or rubs. RESPIRATORY: Breath sounds equal bilaterally. No accessory muscle use. GASTROINTESTINAL: Abdomen soft, non-tender, nondistended. MUSCULOSKELETAL: No cyanosis, left elbow held in flexion with swelling over the olecranon bursa no redness no ecchymosis distally extremity is grossly tendon intact also mild edema to the left foot. Dorsalis pedis pulse 2+ to palpation capillary refill brisk and less than 2 seconds decreased range of motion secondary mild soft tissue swelling at the ankle without deformities. Back: Nontender to palpation no tenderness along the dorsal or lumbar spine no flank tenderness and no ecchymosis. Data Data Last Documented VS Vital Signs Date Time Temp Pulse Resp B/P (MAP) Pulse Ox O2 Delivery O2 Flow Rate FiO2 05/17/17 05:30 89 16 158/89 (112) 97 Room Air 05/17/17 00:04 98.6 Orders Orders Basic Metabolic Panel (Bmp) (05/17/17 00:19) Complete Blood Count With Diff (05/17/17 00:19) Prothrombin Time / Inr (Pt) (05/17/17 00:19) Act Partial Throm Time (Ptt) (05/17/17 00:19) Urinalysis - C+S If Indicated (05/17/17:19) Iv Access Insert/Monitor (05/17/17 00:19) Ecg Monitoring (05/17/17 00:19) Oximetry (05/17/17 00:19) Ondansetron Inj (Zofran Inj) (05/17/17 00:30) Sodium Chlor 0.9% 1000 Ml Inj (Ns 1000 M (05/17/17 00:19) Sodium Chloride 0.9% Flush (Ns Flush) (05/17/17 00:30) Ct Elbow W/O Contrast (05/17/17 ) Type And Screen (05/17/17 00:19) Hydromorphone Pf Inj (Dilaudid Pf Inj) (10/22/17 00:30) Hydromorphone Pf Inj (Dilaudid Pf Inj) (05/17/17 00:30) Foot, Limited (2vws) (05/17/17 ) Hydromorphone Pf Inj (Dilaudid Pf Inj) (05/17/17 01:30) Hydromorphone Pf Inj (Dilaudid Pf Inj) (05/17/17 01:30) Sodium Chlor 0.9% 1000 Ml Inj (Ns 1000 M (05/17/17 01:30) Red Blood Cells (Rbc) (05/17/17 00:20) Ct Abd/Pel W Iv Contrast(Rout) (05/17/17 02:02) Hydromorphone Pf Inj (Dilaudid Pf Inj) (05/17/17 02:15) Lorazepam Inj (Ativan Inj) (05/17/17 02:15) Iohexol 350 Inj (Omnipaque 350 Inj) (05/17/17 02:24) Cbc No Diff, Includes Plts (05/17/17 05:00) Oxycodone-Acetamin 7.5-325 Mg (Percocet (05/17/17 04:15) Ed Discharge Order (05/17/17 06:31) Labs Laboratory Tests Test 05/17/17 00:20 05/17/17 04:30 05/17/17 05:15 White Blood Count 16.6 TH/MM3 13.6 TH/MM3 Red Blood Count 4.80 MIL/MM3 4.35 MIL/MM3 Hemoglobin 13.2 GM/DL 11.7 GM/DL Hematocrit 39.3 % 36.0 % Mean Corpuscular Volume 81.8 FL 82.6 FL Mean Corpuscular Hemoglobin 27.6 PG 27.0 PG Mean Corpuscular Hemoglobin Concent 33.7 % 32.6 % Red Cell Distribution Width 15.3 % 15.8 % Platelet Count 310 TH/MM3 259 TH/MM3 Mean Platelet Volume 7.6 FL 7.3 FL Neutrophils (%) (Auto) 77.5 % Lymphocytes (%) (Auto) 11.6 % Monocytes (%) (Auto) 8.7 % Eosinophils (%) (Auto) 2.0 % Basophils (%) (Auto) 0.2 % Neutrophils # (Auto) 12.8 TH/MM3 Lymphocytes # (Auto) 1.9 TH/MM3 Monocytes # (Auto) 1.4 TH/MM3 Eosinophils # (Auto) 0.3 TH/MM3 Basophils # (Auto) 0.0 TH/MM3 CBC Comment DIFF FINAL Differential Comment Prothrombin Time 9.3 SEC Prothromb Time International Ratio 0.8 RATIO Activated Partial Thromboplast Time 96.9 SEC Blood Urea Nitrogen 9 MG/DL Creatinine 0.64 MG/DL Random Glucose 107 MG/DL Calcium Level 9.1 MG/DL Sodium Level 135 MEQ/L Potassium Level 3.4 MEQ/L Chloride Level 104 MEQ/L Carbon Dioxide Level 21.6 MEQ/L Anion Gap 9 MEQ/L Estimat Glomerular Filtration Rate 152 ML/MIN Urine Color YELLOW Urine Turbidity CLEAR Urine pH 6.5 Urine Specific [place] GREATER THAN 1.050 Urine Protein TRACE mg/dL Urine Glucose (UA) NEG mg/dL Urine Ketones 40 mg/dL Urine Occult Blood NEG Urine Nitrite NEG Urine Bilirubin NEG Urine Urobilinogen 2.0 MG/DL Urine Leukocyte Esterase NEG Urine RBC 1 /hpf Urine WBC 1 /hpf Microscopic Urinalysis Comment CULT NOT INDICATED MDM Medical Decision Making Medical Screen Exam Complete: Yes Emergency Medical Condition: Yes Medical Record Reviewed: Yes Interpretation(s) Last Impressions Abdomen/Pelvis CT 05/17/17 0202 Signed Impressions: Service Date/Time: Wednesday, May 17, 2017 02:21 - CONCLUSION: 1. No evidence of acute hemorrhage. 2. Mild splenomegaly with no focal lesion. 3. At least moderate degenerative change in the right hip. Pj Sinha MD Upper Extremity CT 05/17/17 0000 Signed Impressions: Service Date/Time: Wednesday, May 17, 2017 02:21 - CONCLUSION: 1. No acute fracture or malalignment. 2. Stable degenerative change. Pj Sinha MD Foot X-Ray 05/17/17 0000 Signed Impressions: Service Date/Time: Wednesday, May 17, 2017 00:39 - CONCLUSION: Negative limited 2 view trauma study. Pj Sinha MD CBC & BMP Diagram 05/17/17 00:20 Calcium Level 9.1 05/17/17 05:15 Vital Signs Date Time Temp Pulse Resp B/P (MAP) Pulse Ox O2 Delivery O2 Flow Rate FiO2 05/17/17 05:30 89 16 158/89 (112) 97 Room Air 05/17/17 03:30 110 18 159/86 (110) 98 Room Air 05/17/17 02:15 100 22 148/97 (114) 96 Room Air 05/17/17 00:04 98.6 120 20 131/90 (104) 99 Differential Diagnosis Exacerbation of bleeding disorder hemarthrosis intra-abdominal bleeding anemia hemorrhage drug-seeking behavior Narrative Course Patient with sinus tachycardia administered 2 L normal saline bolus CT left elbow reveals no abnormal fluid collection or fracture cervical and CT abdomen and pelvis reveals no intra-abdominal or pelvic free fluid and no abdominal wall expanding hematoma Patient's case discussed with on-call day light relief operator Dr. Cummings who knows the patient well is covering for Dr. Anne recommends the patient does not show evidence clinically or with diagnostics expanding hematoma patient should be discharged to home and continue his outpatient regimen and follow with Dr. Anne for his day light relief operator as planned and prescribed Percocet for pain. It is now 6:10 AM there is no evidence that there is been eating any expansion of the abdominal wall ecchymosis without hematoma. Patient is stable for outpatient management at this time. Patient is encouraged to follow-up with his day light relief operator or with Dr. Adam. Patient stable and requesting discharge to home. Physician Communication Physician Communication discussed with DR Cummings -- no bleeding d/c outpt follow up continue current regimen Diagnosis Primary Impression: Hemophilia A Additional Impressions: Foot pain, left Elbow pain, left Referrals: Leno Adam MD call for appointment Patient Instructions: Narcotic given in the ED, General Instructions Additional Instructions: Continue current chronic outpatient regimen of Novoseven and FEIBA Take pain medication as prescribed Take Tylenol for pain or for fever 100.4F or greater Follow-up with Dr. Adam or your day light relief operator Return to the emergency room for any concerns or change in condition Med/Other Pt SpecificInfo: Prescription(s) given Scripts Oxycodone-Acetaminophen (Percocet) 5-325 mg Tab 1 TAB PO Q6H Y for PAIN, #2 TAB 0 Refills Prov: Alejandra Castaneda MD 05/17/17 Disposition: 01 DISCHARGE HOME Condition: Stable Alejandra Castaneda MD May 17, 2017 04:01
[2017-05-17] MEDS ORDERED: oxyCODONE/ACETAMINOPHEN 7.5 MG/325 MG TAB PO ONE (04:15)
[2017-05-17 05:30] VITALS: BP 158/89; PULSE 89; RESP 16; O2SAT 97
[2017-05-17 05:36] LABS: MEAN CELL VOLUME 82.6 FL (80.0-100.0); MEAN CORPUSCULAR HGB CONC 32.6 % (32.0-36.0); PLATELET COUNT 259 TH/MM3 (150-450); RED BLOOD COUNT 4.35 MIL/MM3 (4.50-5.90); RED CELL DISTRIBUTION WIDTH 15.8 % (11.6-17.2); REVIEW FLAG FINAL; WHITE BLOOD COUNT 13.6 TH/MM3 (4.0-11.0)
[2017-05-17 05:38] LABS: BLOOD, URINE NEG (NEG); COMMENT (UR) CULT NOT INDICATED; CULTURE IF INDICATED CULT NOT INDICATED; GLUCOSE,URINE NEG (NEG); KETONE, URINE 40 mg/dL (NEG); NITRITE,URINE NEG (NEG); PH, URINE 6.5 (5.0-8.5); URINE COLOR YELLOW (YELLW/STRAW)
[2017-05-17] MEDS ORDERED: PERC5TAB12 PO (06:33)
== END 2017-05-17 09:54 | disposition home or self-care (01) ==
LOC: NEPC 00:01
DX: D66 Hereditary factor VIII deficiency (principal); M25.522 Pain in left elbow; M79.672 Pain in left foot; W18.2XXA Fall in (into) shower or empty bathtub, initial encounter; Y93.E1 Activity, personal bathing and showering; Y92.002 Bathroom of unspecified non-institutional (private) residence as the place of occurrence of the external cause
CPT/HCPCS: 73200; 73620; 74177; 80048; 81001; 85025; 85027; 85610; 85730; 86850; 86900; 86901; 86920; 86922; 96361; 96374; 96375; 96376; 99285; J1170; J2060; J2405; J7030; Q9967

== ENCOUNTER 2017-07-09 22:33 | Inpatient (IN) | payer MEDICARE, OTHER ==
[~2017-07-09] VITALS: Ht 177.8 cm; Wt 77.8 kg
[~2017-07-09 22:33] MED LIST changes: -LEVA750T9 PO; +PERC5TAB12 PO
[2017-07-09 22:40] VITALS: BP 142/74; PULSE 99; RESP 16; TEMP 98.7; O2SAT 99
[2017-07-09 23:58] LABS: AUTOMATED NEUTROPHIL # 12.6 TH/MM3 (1.8-7.7); BASOPHIL % 0.2 % (0.0-2.0); EOSINOPHIL # 0.1 TH/MM3 (0-0.4); EOSINOPHIL % 0.4 % (0.0-4.0); HEMO FLAGS DIFF FINAL; LYMPH % 10.9 % (9.0-44.0); LYMPHOCYTE # 1.7 TH/MM3 (1.0-4.8); MEAN CELL VOLUME 75.4 FL (80.0-100.0); MEAN CORPUSCULAR HEMOGLOBIN 24.1 PG (27.0-34.0); MEAN CORPUSCULAR HGB CONC 31.9 % (32.0-36.0); MONO % 7.9 % (0.0-8.0); NEUT % 80.6 % (16.0-70.0); PLATELET COUNT 563 TH/MM3 (150-450); RED BLOOD COUNT 4.52 MIL/MM3 (4.50-5.90); WHITE BLOOD COUNT 15.7 TH/MM3 (4.0-11.0)
--- NOTE | 2017-07-10 00:05 | RADRPT ---
EXAM DATE/TIME: 07/09/2017 23:16 [facility] COMPARISON: CT ABDOMEN & PELVIS W/O CONTRAST, December 10, 2016, 18:59. INDICATIONS : Abdomen pain, history of Hemophila A ORAL CONTRAST: No oral contrast ingested. RADIATION DOSE: 8.03 CTDIvol (mGy) MEDICAL HISTORY : Ulcers. Hemophila A SURGICAL HISTORY : left femur surgery ENCOUNTER: Initial ACUITY: 2 days PAIN SCALE: 4/10 LOCATION: abdomen TECHNIQUE: Volumetric scanning of the abdomen and pelvis was performed. Using automated exposure control and ad justment of the mA and/or kV according to patient size, radiation dose was kept as low as reasonably achievable to obtain optimal diagnostic quality images. DICOM format image data is available electro nically for review and comparison. FINDINGS: LOWER LUNGS: The visualized lower lungs are clear. LIVER: Homogeneous density without lesion. There is no dilation of the biliary tree. No calcified gallston es. SPLEEN: Borderline splenomegaly measuring 12.3 cm in craniocaudal dimension. PANCREAS: Within normal limits. KIDNEYS: Normal in size and shape. There is no mass, stone, or hydronephrosis. ADRENAL GLANDS: Within normal limits. VASCULAR: There is no aortic aneurysm. BOWEL/MESENTERY: No evidence of bowel dilatation. No free air or free fluid. Appendix within normal limits. ABDOMINAL WALL: Within normal limits. RETROPERITONEUM: There is no lymphadenopathy. BLADDER: No wall thickening or mass. REPRODUCTIVE: Within normal limits. INGUINAL: There is no lymphadenopathy or hernia. MUSCULOSKELETAL: Severe right hip osteoarthritis is again seen. CONCLUSION: No acute findings in the abdomen and pelvis. Severe right hip osteoarthritic findings again seen. Salvador Najera MD on July 09, 2017 at 23:59 Board Certified Radiologist. This report was verified electronically.
--- NOTE | 2017-07-10 00:08 | RADRPT ---
EXAM DATE/TIME: 07/09/2017 23:16 [facility] COMPARISON: CT ABDOMEN & PELVIS W CONTRAST, May 17, 2017, 2:21. INDICATIONS : Right hip pain, history of hemophila A RADIATION DOSE: ; Reconstructed from previous dataset, no dose MEDICAL HISTORY : Ulcers. Hemophila A SURGICAL HISTORY : Left femur surgery ENCOUNTER: Initial ACUITY: 2 days PAIN SCALE: 3/10 LOCATION: Right hip TECHNIQUE: Volumetric scanning of the hip was performed. Using automated exposure control and adjustment of the mA and/or kV according to patient size, radiation dose was kept as low as reasonably achievable to o btain optimal diagnostic quality images. DICOM format image data is available electronically for rev iew and comparison. FINDINGS: BONES: Large osteophytes, subchondral sclerosis, and severe joint narrowing noted at the right hip. These fi ndings are unchanged from prior of 05/17/2017. No acute fracture identified. JOINTS: Small joint effusion of the right hip. SOFT TISSUES: Muscles, tendons and neurovascular structures are grossly unremarkable. No evidence of mass, organize d fluid collection, or foreign body. CONCLUSION: Severe osteoarthritic findings of the right hip. Salvador Najera MD on July 10, 2017 at 0:04 Board Certified Radiologist. This report was verified electronically.
--- NOTE | 2017-07-10 00:15 | RADRPT ---
EXAM DATE/TIME: 07/09/2017 23:24 [facility] COMPARISON: CT ELBOW LEFT W/O CONTRAST, May 17, 2017, 2:21. INDICATIONS : Left elbow pain , history of hemophila A . RADIATION DOSE: 13.82 CTDIvol (mGy) MEDICAL HISTORY : Ulcers. Hemophila A SURGICAL HISTORY : left femur surgery ENCOUNTER: Initial ACUITY: 2 days PAIN SCALE: 3/10 LOCATION: Left elbow TECHNIQUE: Volumetric scanning of the elbow was performed. Using automated exposure control and adjustment of t he mA and/or kV according to patient size, radiation dose was kept as low as reasonably achievable to obtain optimal diagnostic quality images. DICOM format image data is available electronically for r eview and comparison. FINDINGS: BONES: Severe arthritic findings of the left elbow are again identified. There has been interval development of subchondral bone erosion/destruction involving the radial head and capitellum as well as the neil cent lateral subchondral region of the olecranon. Central medial subchondral olecranon bone erosion i s also seen. No evidence of acute fracture. JOINTS: Large elbow joint effusion. SOFT TISSUES: Muscles, tendons and neurovascular structures are grossly unremarkable. No evidence of mass, organize d fluid collection, or foreign body. 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 Salvador Najera MD on July 10, 2017 at 0:07 Board Certified Radiologist. This report was verified electronically.
[2017-07-10 00:24] LABS: BICARBONATE 25.2 MEQ/L (21.0-32.0)
--- NOTE | 2017-07-10 00:26 | PD ---
HPI Chief Complaint: Bleeding Time Seen by Provider: 22:50 Travel History International Travel<30 days: No Contact w/Intl Traveler<30days: No Traveled to known affect area: No History of Present Illness HPI 26-year-old male presents to the emergency department in police custody for evaluation of pain and swelling to the left elbow and right hip. Patient states she's been out of his medications for 5 days while incarcerated. Patient started noticing increasing pain and swelling today. Patient is normally on FEIBA 7500 units IV every 12 hours as an outpatient along with NovoSeven 10 mg every 12 hours. Patient is followed by oncologist travel professional Dr. Adam. [facility] Past Medical History Narrative Medical Hemophilia A; tobacco use; nursing notes reviewed Hx Anticoagulant Therapy: Yes (hemophilia) Arthritis: Yes Blood Disorders: Yes (HEMOPHELIA A) Anxiety: Yes Depression: No Cancer: No Cardiovascular Problems: No Chemotherapy: Yes Diminished Hearing: No Endocrine: No Gastrointestinal Disorders: Yes (history of ulcers) Genitourinary: No Immune Disorder: No Implanted Vascular Access Dvce: Yes Musculoskeletal: Yes Neurologic: No Psychiatric: Yes Reproductive: No Respiratory: No Radiation Therapy: No Ulcer: Yes Tetanus Vaccination: Unknown Influenza Vaccination: No Past Surgical History Body Medical Devices: L-femur plate with 8 scews, right SC port. Other Surgery: Yes (MEDIPORT, I&D LEFT KNEE, plate L femur, radioactive synovectomy L knee, ) Social History Alcohol Use: No Tobacco Use: Yes (one pack per day) Substance Use: No Allergies-Medications (Allergen,Severity, Reaction): Coded Allergies: diclofenac (Unverified Adverse Reaction, Severe, bleeding, 03/10/17) etodolac (Unverified Adverse Reaction, Severe, bleeding, 03/10/17) flurbiprofen (Unverified Adverse Reaction, Severe, bleeding, 03/10/17) ibuprofen (Unverified Adverse Reaction, Severe, bleeding, 03/10/17) indomethacin (Unverified Adverse Reaction, Severe, bleeding, 03/10/17) ketoprofen (Unverified Adverse Reaction, Severe, bleeding, 03/10/17) ketorolac (Unverified Adverse Reaction, Severe, bleeding, 03/10/17) naproxen (Unverified Adverse Reaction, Severe, bleeding, 03/10/17) oxaprozin (Unverified Adverse Reaction, Severe, bleeding, 03/10/17) *MDRO Multi-Drug Resistant Organism (Verified Adverse Reaction, Unknown, ) ESBL E. coli Blood 01/23/17 Reported Meds & Prescriptions Reported Meds & Active Scripts Active Percocet (Oxycodone-Acetaminophen) 5-325 mg Tab 1 Tab PO Q6H PRN Oxycodone (Oxycodone HCl) 30 Mg Tab 30 Mg PO Q6H PRN Xanax (Alprazolam) 0.5 Mg Tab 0.5 Mg PO Q8H Wheelchair (Device) 1 Mis Mis 1 Ea .ROUTE DIRECTED Reported Novoseven Rt Inj (Factor VIIa (Recombinant)) 1 Mg Inj 10 Mcg IV Q4HR Feiba NF Inj (Antiinhibitor Coagulant Complex Inj) 500 Units Inj 7,500 Units INJ DAILY Review of Systems Except as stated in HPI: all other systems reviewed are Neg Physical Exam Narrative GENERAL: Well-developed well-nourished female in no acute distress no respiratory distress SKIN: Warm and dry. HEAD: Normocephalic. EYES: No scleral icterus. No injection or drainage. NECK: Supple, trachea midline. No JVD or lymphadenopathy. CARDIOVASCULAR: Regular rate and rhythm without murmurs, gallops, or rubs. RESPIRATORY: Breath sounds equal bilaterally. No accessory muscle use. GASTROINTESTINAL: Abdomen soft, non-tender, nondistended. MUSCULOSKELETAL: No cyanosis, or edema. Soft tissue swelling of the left elbow distally extremity is neurovascular tendon intact. Right hip no redness no induration no swelling distally extremities are neurovascularly tendon intact. BACK: Nontender without obvious deformity. No CVA tenderness. Data Data Last Documented VS Vital Signs Date Time Temp Pulse Resp B/P (MAP) Pulse Ox O2 Delivery O2 Flow Rate FiO2 07/09/17 22:40 98.7 99 16 142/74 (96) 99 Orders Orders ^ Saline Lock (07/09/17 22:51) Complete Blood Count With Diff (07/09/17 22:51) Prothrombin Time / Inr (Pt) (07/09/17 22:51) Act Partial Throm Time (Ptt) (07/09/17 22:51) Basic Metabolic Panel (Bmp) (07/09/17 22:51) Type And Screen (07/09/17 22:51) Urinalysis - C+S If Indicated (07/09/17 22:51) Ct Elbow W/O Contrast (07/09/17 ) Ct Hip W/O Contrast (07/09/17 ) Ct Abd/Pel W/O Iv Contrast (07/09/17 ) Anti-Inhibitor Coag Cmplx Inj (Feiba Nf (07/10/17 00:45) Ondansetron Inj (Zofran Inj) (07/10/17 00:45) Red Blood Cells (Rbc) (07/09/17 23:00) Morphine Inj (Morphine Inj) (07/10/17 01:15) Admit Order (Ed Use Only) (07/10/17 ) Vital Signs (Adult) Q4H (07/10/17 01:02) Activity Oob With Assistance (07/10/17 01:02) Notify Dr: Other (07/10/17 01:02) Consult Hematology (07/10/17 ) Admit To Inpatient (07/10/17 ) Vital Signs (Adult) Q4H (07/10/17 00:57) Activity Oob With Assistance (07/10/17 00:57) Diet Regular Basic (07/10/17 Breakfast) Sodium Chloride 0.9% Flush (Ns Flush) (07/10/17 01:00) Sodium Chloride 0.9% Flush (Ns Flush) (07/10/17 09:00) Ondansetron Inj (Zofran Inj) (07/10/17 01:00) Comprehensive Metabolic Panel (07/11/17 06:00) Complete Blood Count With Diff (07/11/17 06:00) Pharmacologic Contraindication (07/10/17 00:57) Acetaminophen (Tylenol) (07/10/17 01:00) Acetamin-Hydrocod 325-5 Mg (Soldier 5-325 (07/10/17 01:00) Acetamin-Hydrocod 325-10 Mg (Soldier 10-32 (07/10/17 01:00) Docusate Sodium-Senna (Kelli-Colace) (07/10/17 09:00) Magnesium Hydroxide Liq (Milk Of Magnesi (07/10/17 01:00) Sennosides (Senokot) (07/10/17 01:00) Bisacodyl Supp (Dulcolax Supp) (07/10/17 01:00) Lactulose Liq (Lactulose Liq) (07/10/17 01:00) Inpatient Certification (07/10/17 ) Labs Laboratory Tests Test 07/09/17 23:00 07/10/17 01:00 White Blood Count 15.7 TH/MM3 Red Blood Count 4.52 MIL/MM3 Hemoglobin 10.9 GM/DL Hematocrit 34.0 % Mean Corpuscular Volume 75.4 FL Mean Corpuscular Hemoglobin 24.1 PG Mean Corpuscular Hemoglobin Concent 31.9 % Red Cell Distribution Width 17.0 % Platelet Count 563 TH/MM3 Mean Platelet Volume 6.8 FL Neutrophils (%) (Auto) 80.6 % Lymphocytes (%) (Auto) 10.9 % Monocytes (%) (Auto) 7.9 % Eosinophils (%) (Auto) 0.4 % Basophils (%) (Auto) 0.2 % Neutrophils # (Auto) 12.6 TH/MM3 Lymphocytes # (Auto) 1.7 TH/MM3 Monocytes # (Auto) 1.2 TH/MM3 Eosinophils # (Auto) 0.1 TH/MM3 Basophils # (Auto) 0.0 TH/MM3 CBC Comment DIFF FINAL Differential Comment Prothrombin Time 12.1 SEC Prothromb Time International Ratio 1.2 RATIO Activated Partial Thromboplast Time 103.9 SEC Blood Urea Nitrogen 6 MG/DL Creatinine 0.52 MG/DL Random Glucose 81 MG/DL Calcium Level 9.1 MG/DL Sodium Level 139 MEQ/L Potassium Level 4.0 MEQ/L Chloride Level 107 MEQ/L Carbon Dioxide Level 25.2 MEQ/L Anion Gap 7 MEQ/L Estimat Glomerular Filtration Rate 194 ML/MIN Urine Color YELLOW Urine Turbidity HAZY Urine pH 7.5 Urine Specific Medon 1.009 Urine Protein NEG mg/dL Urine Glucose (UA) NEG mg/dL Urine Ketones NEG mg/dL Urine Occult Blood NEG Urine Nitrite NEG Urine Bilirubin NEG Urine Urobilinogen 2.0 MG/DL Urine Leukocyte Esterase SMALL Urine RBC 1 /hpf Urine WBC 7 /hpf Urine Renal Epithelial Cells 1 /hpf Urine Amorphous Sediment RARE Urine Mucus FEW /lpf Urine Yeast (Budding) MANY Microscopic Urinalysis Comment CULT NOT INDICATED MDM Medical Decision Making Medical Screen Exam Complete: Yes Emergency Medical Condition: Yes Medical Record Reviewed: Yes Interpretation(s) Last Impressions Upper Extremity CT 07/09/17 0000 Signed Impressions: Service Date/Time: June 23:24 - CONCLUSION: Marked interval progression of erosive arthropathy of the elbow along with development of large joint effusion. 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 Salvador Najera MD Lower Extremity CT 07/09/17 0000 Signed Impressions: Service Date/Time: June 23:16 - CONCLUSION: Severe osteoarthritic findings of the right hip. Salvador Najera MD Abdomen/Pelvis CT 07/09/17 0000 Signed Impressions: Service Date/Time: June 23:16 - CONCLUSION: No acute findings in the abdomen and pelvis. Severe right hip osteoarthritic findings again seen. Salvador Najera MD CBC & BMP Diagram 07/09/17 23:00 Calcium Level 9.1 Vital Signs Date Time Temp Pulse Resp B/P (MAP) Pulse Ox O2 Delivery O2 Flow Rate FiO2 07/09/17 22:40 98.7 99 16 142/74 (96) 99 Differential Diagnosis Hemarthrosis anterior abdominal/pelvic hemorrhage chronic pain syndrome Narrative Course IV access specimens collected and sent for resulting imaging studies ordered CT abdomen and pelvis reveals no acute process right hip flexion CAT scan reveals no hemarthrosis left elbow x-ray reveals large hemarthrosis Call placed to travel professional with recommendation to continue his routine medication FEIBA and did not administer NovoSeven place consult for hematology consult with Dr. Adam in the a.m. Physician Communication Physician Communication discussed with Dr Cummings --give his usual regimen and consult Dr Adam admit to med ; call placed to [facility] service Diagnosis Primary Impression: Hemarthrosis, left elbow Additional Impression: Hemophilia A Admitting Information Admitting Physician Requests: Admit Alejandra Castaneda MD Jul 10, 2017 00:26
[2017-07-10 00:34] LABS: INTERNATIONAL NORMALIZED RATIO 1.2 RATIO; PROTHROMBIN TIME - PATIENT 12.1 SEC (9.8-11.6)
[2017-07-10 00:42] LABS: APTT (PATIENT) 103.9 SEC (24.3-30.1)
[2017-07-10] MEDS ORDERED: ONDANSETRON HCL 4 MG/2 ML VIAL IV PUSH ONE (00:45)
[2017-07-10] MEDS ORDERED: ANTI-INHIBITOR COAGULANT COMPLEX 100 UNIT INJ IV ONE (00:45)
[2017-07-10] MEDS ORDERED: MORPHINE SULFATE 4 MG/ML INJ IV PUSH ONE (00:45)
[2017-07-10] MEDS ORDERED: ACETAMINOPHEN/HYDROcodone 325 MG/5 MG TAB PO PRN (01:00)
[2017-07-10] MEDS ORDERED: ONDANSETRON HCL 4 MG/2 ML VIAL IVP PRN (01:00)
[2017-07-10] MEDS ORDERED: MAGNESIUM HYDROXIDE SUSP 30 ML CUP PO PRN (01:00)
[2017-07-10] MEDS ORDERED: ACETAMINOPHEN 325 MG TAB PO PRN (01:00)
[2017-07-10] MEDS ORDERED: SENNOSIDES 8.6 MG TAB PO PRN (01:00)
[2017-07-10] MEDS ORDERED: LACTULOSE SYRUP 20 GM/30 ML CUP PO PRN (01:00)
[2017-07-10] MEDS ORDERED: BISACODYL 10 MG SUPP RECTAL PRN (01:00)
[2017-07-10] MEDS ORDERED: SODIUM CHLORIDE 0.9% FLUSH 10 ML FLUSH IV FLUSH PRN (01:00)
[2017-07-10] MEDS ORDERED: MORPHINE SULFATE 2 MG/ML INJ IV PUSH ONE (01:15)
--- NOTE | 2017-07-10 01:20 | HHI.HP ---
HPI Service [facility] Primary Care Physician Unknown Admission Diagnosis hemarthrosis left elbow; hemophilia A Diagnoses: (1) Hemophilia A Diagnosis: Principal (2) Hemarthrosis, left elbow Diagnosis: Principal (3) Hip pain Diagnosis: Principal (4) Leukocytosis Diagnosis: Principal (5) Tobacco abuse Diagnosis: Principal Travel History International Travel<30 Days: No Contact w/Intl Traveler <30 Da: No Traveled to Known Affected Are: No History of Present Illness This is a 26-year-old male with PMH of Hemophilia A, Anxiety, Narcotic Dependence and Tobacco Abuse who was brought to the ER from [facility] under Police Custody for c/o left elbow pain/swelling and right hip pain x5 days. Pt on Feiba 7500u IV q24h and alternates w/ NovoSeven 10mcg IV q24h. States that while he's been in penitentiary, he's been off his medications x5 days, unable to obtain medications, now w/ left elbow and right hip pain. Denies injury/ trauma. On arrival, BP 142/74, HR 99, O2 sat 99% on RA. WBC 15.7, Hgb 10.9. Chemistry unremarkable. PTT 103.9, PT 12.1, INR 1.2. 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 CT RLE w/ severe osteoarthritic findings of the right hip. CT Abd/Pelvis w/ no acute findings. Dr. Cummings consulted by ER physician, recommended initiating home regimen. Review of Systems Except as stated in HPI: all other systems reviewed are Neg ROS: 14 point review of systems otherwise negative. Past Family Social History Past Medical History PMH: Hemophilia A, Anxiety, Narcotic Dependence and Tobacco Abuse Past Surgical History PAST SURGICAL HISTORY: Left Femur Surgery, MediPort, I&D Left Knee, Radioactive Synovectomy Left Knee Allergies: Coded Allergies: diclofenac (Unverified Adverse Reaction, Severe, bleeding, 03/10/17) etodolac (Unverified Adverse Reaction, Severe, bleeding, 03/10/17) flurbiprofen (Unverified Adverse Reaction, Severe, bleeding, 03/10/17) ibuprofen (Unverified Adverse Reaction, Severe, bleeding, 03/10/17) indomethacin (Unverified Adverse Reaction, Severe, bleeding, 03/10/17) ketoprofen (Unverified Adverse Reaction, Severe, bleeding, 03/10/17) ketorolac (Unverified Adverse Reaction, Severe, bleeding, 03/10/17) naproxen (Unverified Adverse Reaction, Severe, bleeding, 03/10/17) oxaprozin (Unverified Adverse Reaction, Severe, bleeding, 03/10/17) *MDRO Multi-Drug Resistant Organism (Verified Adverse Reaction, Unknown, ) ESBL E. coli Blood 01/23/17 Family History PAST FAMILY HISTORY: Reviewed. No h/o DM or CAD Social History PAST SOCIAL HISTORY: Denies alcohol or drugs. Smokes 1ppd. Physical Exam Vital Signs Vital Signs Date Time Temp Pulse Resp B/P (MAP) Pulse Ox O2 Delivery O2 Flow Rate FiO2 07/09/17 22:40 98.7 99 16 142/74 (96) 99 Physical Exam PE: GENERAL: Young white male in no acute distress. HEENT: PERRLA, EOMI. No scleral icterus or conjunctival pallor. No lid lag or facial droop. CARDIOVASCULAR: Regular rate and rhythm. No obvious murmurs to auscultation. No chest tenderness to palpation. RESPIRATORY: No obvious rhonchi or wheezing. Clear to auscultation. Breath sounds equal bilaterally. GASTROINTESTINAL: Abdomen soft, non-tender, nondistended. BS normal. MUSCULOSKELETAL: Extremities without clubbing, cyanosis, or edema. No obvious deformities. Decreased ROM of LUE due to elbow pain/swelling/hemarthrosis. Right hip pain w/ movement. Pulses intact NEUROLOGICAL: Awake, alert and oriented x4. No focal neurologic deficits. Moving both upper and lower extremities spontaneously. Laboratory Laboratory Tests Test 07/09/17 23:00 White Blood Count 15.7 Red Blood Count 4.52 Hemoglobin 10.9 Hematocrit 34.0 Mean Corpuscular Volume 75.4 Mean Corpuscular Hemoglobin 24.1 Mean Corpuscular Hemoglobin Concent 31.9 Red Cell Distribution Width 17.0 Platelet Count 563 Mean Platelet Volume 6.8 Neutrophils (%) (Auto) 80.6 Lymphocytes (%) (Auto) 10.9 Monocytes (%) (Auto) 7.9 Eosinophils (%) (Auto) 0.4 Basophils (%) (Auto) 0.2 Neutrophils # (Auto) 12.6 Lymphocytes # (Auto) 1.7 Monocytes # (Auto) 1.2 Eosinophils # (Auto) 0.1 Basophils # (Auto) 0.0 CBC Comment DIFF FINAL Differential Comment Prothrombin Time 12.1 Prothromb Time International Ratio 1.2 Activated Partial Thromboplast Time 103.9 Blood Urea Nitrogen 6 Creatinine 0.52 Random Glucose 81 Calcium Level 9.1 Sodium Level 139 Potassium Level 4.0 Chloride Level 107 Carbon Dioxide Level 25.2 Anion Gap 7 Estimat Glomerular Filtration Rate 194 Result Diagram: 07/09/17229907/09/172299 Caprini VTE Risk Assessment Caprini VTE Risk Assessment: No/Low Risk (score <= 1) VTE Pharm Contraindication: Active bleeding Caprini Risk Assessment Model Point Value = 1 Point Value = 2 Point Value = 3 Point Value = 5 Age 41-60 Minor surgery BMI > 25 kg/m2 Swollen legs Varicose veins or History of unexplained or recurrent spontaneous Oral contraceptives or hormone replacement Sepsis (< 1 month) Serious lung disease, including pneumonia (< 1 month) Abnormal pulmonary function Acute myocardial infarction Congestive heart failure (< 1 month) History of inflammatory bowel disease Medical patient at bed rest Age 61-74 Arthroscopic surgery Major open surgery (> 45 min) Laparoscopic surgery (> 45 min) Malignancy Confined to bed (> 72 hours) Immobilizing plaster cast Central venous access Age >= 75 History of VTE Family history of VTE Factor V Leiden Prothrombin [id number] Lupus anticoagulant Anticardiolipin antibodies Elevated serum homocysteine Heparin-induced thrombocytopenia Other congenital or acquired thrombophilia Stroke (< 1 month) Elective arthroplasty Hip, pelvis, or leg fracture Acute spinal cord injury (< 1 month) Prophylaxis Regimen Total Risk Factor Score Risk Level Prophylaxis Regimen 0-1 Low Early ambulation 2 Moderate Order ONE of the following: *Sequential Compression Device (SCD) *Heparin 5000 units SQ BID 3-4 Higher Order ONE of the following medications: *Heparin 5000 units SQ TID *Enoxaparin/Lovenox 40 mg SQ daily (WT < 150 kg, CrCl > 30 mL/min) *Enoxaparin/Lovenox 30 mg SQ daily (WT < 150 kg, CrCl > 10-29 mL/min) *Enoxaparin/Lovenox 30 mg SQ BID (WT < 150 kg, CrCl > 30 mL/min) AND/OR *Sequential Compression Device (SCD) 5 or more Highest Order ONE of the following medications: *Heparin 5000 units SQ TID (Preferred with Epidurals) *Enoxaparin/Lovenox 40 mg SQ daily (WT < 150 kg, CrCl > 30 mL/min) *Enoxaparin/Lovenox 30 mg SQ daily (WT < 150 kg, CrCl > 10-29 mL/min) *Enoxaparin/Lovenox 30 mg SQ BID (WT < 150 kg, CrCl > 30 mL/min) AND *Sequential Compression Device (SCD) Assessment and Plan Problem List: (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 Adam as outpatient, off medications x5 days while in penitentiary as unable to obtain. Resume home regimen, consult Dr. Adam for further recommendations. Monitor for bleeding. 2. 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 Dr. Cummings consulted by ER physician, plan is to resume home regimen, increase frequency if needed. 3. Right Hip Pain: c/o right hip pain w/ movement. CT RLE w/ severe also arthritic findings, no evidence of hemarthrosis, images reviewed by me. Analgesics as needed, caution with previous history of narcotic dependence. 4. Leukocytosis: WBC 15.7. Afebrile. No obvious source of infection, likely reactive. Will monitor, repeat labs in am. 5. Tobacco Abuse: NicoDerm prn if needed. 6. DVT Prophylaxis: Pharmacologic contraindication secondary to hemophilia w/ active bleeding. 7. Social work for dc planning as needed. 8. Case discussed w/ ER physician at length. Physician Certification 2 Midnight Certification Type: Admission for Inpatient Services Order for Inpatient Services The services are ordered in accordance with Medicare regulations or non- Medicare payer requirements, as applicable. In the case of services not specified as inpatient-only, they are appropriately provided as inpatient services in accordance with the 2-midnight benchmark. Estimated LOS (days): 2 days is the estimated time the patient will need to remain in the hospital, assuming treatment plan goals are met and no additional complications. Post-Hospital Plan: Not yet determined Judith Underwood MD Jul 10, 2017 01:20
[2017-07-10 01:58] LABS: BLOOD, URINE NEG (NEG); GLUCOSE,URINE NEG (NEG); KETONE, URINE NEG (NEG); MUCUS URINE FEW /lpf (OCC); NITRITE,URINE NEG (NEG); PH, URINE 7.5 (5.0-8.5); RENAL EPITHELIAL CELLS 1 /hpf; URINE COLOR YELLOW (YELLW/STRAW)
[2017-07-10 02:00] LABS: COMMENT (UR) CULT NOT INDICATED; CULTURE IF INDICATED CULT NOT INDICATED
[2017-07-10] MEDS: ACETAMINOPHEN/HYDROcodone 325 MG/10 MG TAB PO PRN ×2 (02:26→06:13)
[2017-07-10 04:00] VITALS: BP 113/77; PULSE 91; RESP 18; TEMP 98.4; O2SAT 99
[2017-07-10 08:00] VITALS: BP 102/60; PULSE 80; RESP 18; TEMP 97.6; O2SAT 99
[2017-07-10] MEDS ORDERED: DOCUSATE SODIUM 50 MG/SENNA 8.6 MG TAB PO SCH (09:00)
[2017-07-10] MEDS ORDERED: SODIUM CHLORIDE 0.9% FLUSH 10 ML FLUSH IV FLUSH SCH (09:00)
[2017-07-10] MEDS ORDERED: ANTI-INHIBITOR COAGULANT COMPLEX 100 UNIT INJ IV SCH (09:15)
[2017-07-10] MEDS ORDERED: FACTOR VIIA (RECOMB) 1 MG VIAL IV PUSH SCH (09:15)
[2017-07-10] MEDS ORDERED: oxyCODONE/ACETAMINOPHEN 10 MG/325 MG TAB PO PRN (09:15)
[2017-07-10] MEDS ORDERED: MORPHINE SULFATE 30 MG CONTROLLED RELEASE TAB PO SCH (10:00)
--- NOTE | 2017-07-10 10:22 | MB ---
cc: ADRIANA PALM DATE OF CONSULTATION 07/10/2017 REASON FOR CONSULTATION Bleeding in the joints in a patient with hemophilia-A in the presence of a strong inhibitor. PATIENT PROFILE The patient is a 26-year-old white male. He is single, never . He was born in [facility]. He smokes a pack of cigarettes per day, does not drink alcohol. HISTORY OF PRESENT ILLNESS The patient is a 26-year-old male who has severe hemophilia-A. He has an activity level of less than 1%. He has a high circulating factor VIII inhibitor. He requires treatment with NovoSeven and FEIBA for acute bleeds and in addition takes prophylactic administration of both medicines daily. In the morning he receives an injection of FEIBA and in the evening he receives an injection of NovoSeven. He uses a heparin lock for this. He had been previously under the care of Dr. Adam who is one of my partners. He was released from Dr. Adam's care and is now receiving care in [facility]. The patient was noncompliant and apparently had abused narcotics and it is my understanding he had injected them through his port. There are other issues as well. Mr. Gonzalez was in the [facility] for the past three days. He was unable to obtain access to his FEIBA and NovoSeven. This resulted in pain and swelling of the left elbow and pain in the right hip area. He was transported to the emergency room. He was found to have a hemoglobin of 10.9, hematocrit 34, white count 15,000 and platelets 563,000. PTT is 103 and PT is 12. Electrolytes, BUN and creatinine are unremarkable. Imaging studies on 07/09/[address] consisted [address] scan of the right hip showing severe osteoarthritis. There was no overt bleeding into the right hip. A CAT scan of the abdomen and pelvis on 07/09/2017 shows no acute findings other than severe right hip osteoarthritic findings. PAST SURGICAL HISTORY 1. Synovectomy left knee. 2. Fracture left femur 2010 following a fall. 3. Placement and removal of three MediPorts. 4. Bleed into the right arm requiring fasciotomy approximately three or four years ago. PAST MEDICAL HISTORY 1. Hemophilia-A with severe inhibitor. 2. 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 3. Chronic pain as a result of multiple bleeds. 4. History of narcotic abuse. MEDICATIONS Medications prior to admission: 1. Factor VII/NovoSeven 10 mg in the evening. 2. FEIBA 7500 units IV in the a.m. 3. Xanax 0.5 mg p.o. q.8h. p.r.n. 4. Either Lortab or oxycodone. 5. The patient states he was taking long-acting morphine. ALLERGIES NONSTEROIDAL ANTI-INFLAMMATORY MEDICATIONS. REVIEW OF SYSTEMS No change in vision or hearing. No chest pain or palpitations. No shortness of breath. No abdominal pain. He has severe pain in the left elbow and pain in the right hip. PHYSICAL EXAMINATION GENERAL: A pleasant gentleman lying supine in bed. He is accompanied by an officer from the [facility]. He has both legs cuffed together. VITAL SIGNS: Blood pressure 102/60, respiratory rate 18, pulse 80. Afebrile. O2 sat 99%. HEENT: Head is normocephalic. Sclera and conjunctiva are normal. Oropharynx is unremarkable. LYMPH NODE SURVEY: No cervical, supraclavicular, axillary or inguinal adenopathy. HEART: Regular rhythm. LUNGS: Clear. ABDOMEN: Without hepatosplenomegaly. EXTREMITIES: No edema. MUSCULOSKELETAL: There is significant hemarthrosis involving the left elbow which is warm and swollen. Limited range of motion of the left arm due to bleeding into the elbow. SKIN: There are a few small ecchymoses over the skin. PSYCHIATRIC: Unremarkable. ASSESSMENT AND PLAN 1. The patient has severe hemophilia-A with an inhibitor. He is very knowledgeable about his disease and I am going to essentially do what has been done in the past and has been successful. He will receive NovoSeven alternated with FEIBA on a daily basis. NovoSeven has a half-life of 1.7 to 3.1 hours and therefore the NovoSeven will be delivered every 4 hours [id number]. On the day he receives FEIBA he will receive 7500 units q.8h. The half-life of FEIBA is 4-7 hours. This will be continued until resolution of the immediate crisis. 2. Orders will be written for pain management. He will be given pain medication which is appropriate. I would like to avoid intravenous narcotics given his history of blatant abuse. 3. He is noted to be anemic. The MCV is currently 75, previously 82. He will have iron studies performed. 4. He has a physician in the [place] area. 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 In addition I spoke to the guard who is with him from the [facility] and indicated that when he returns to the [facility] he must continue his prophylactic administration of NovoSeven and FEIBA to avoid further bleeding. MD YUDITH Rudolph/PATRICE /9:26 AM /9:54 AM MTDFrancisco
[2017-07-10 12:00] VITALS: BP 116/69; PULSE 78; RESP 18; TEMP 97.8; O2SAT 99
[2017-07-10] MEDS ORDERED: [UNRECOGNIZED DRUG - OTHER] IV PUSH SCH (12:00)
[2017-07-10] MEDS ORDERED: NOVOSEVEN RT IV PUSH SCH (12:00)
--- NOTE | 2017-07-10 13:13 | HHI.PR ---
Subjective Remarks Admission note: This is a 26-year-old male with PMH of Hemophilia A, Anxiety, Narcotic Dependence and Tobacco Abuse who [facility]ustody for c/o left elbow pain/swelling and right hip pain x5 days. Pt on Feiba 7500u IV q24h and alternates w/ NovoSeven 10mcg IV q24h. States that while he's been in [facility], he's been off his medications x5 days, unable to obtain medications, now w/ left elbow and right hip pain. Denies injury/ trauma. On arrival, BP 142/74, HR 99, O2 sat 99% on RA. WBC 15.7, Hgb 10.9. Chemistry unremarkable. PTT 103.9, PT 12.1, INR 1.2. 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 CT RLE w/ severe osteoarthritic findings of the right hip. CT Abd/Pelvis w/ no acute findings. Dr. Cummings consulted by ER physician, recommended initiating home regimen. Seen in his bedroom in the presence of nurse Miss Meraz, the patient was seen by running specialist and recommended to re start his home medicines, after he receives his medicine he wants to sign AMA, permit my physical Exam but decided to go at this time. all possible consequences for his decision given and recommendations given, but he decides to sign AMA no barriers for discharge. patient alert and oriented x 4. Objective Vital Signs Date Time Temp Pulse Resp B/P (MAP) Pulse Ox O2 Delivery O2 Flow Rate FiO2 07/10/17 08:00 97.6 80 18 102/60 (74) 99 07/10/17 04:00 98.4 91 18 113/77 (89) 99 07/09/17 22:40 98.7 99 16 142/74 (96) 99 I/O 07/09/17 07/09/17 07/09/17 07/10/17 07/10/17 07/10/17 07:00 15:00 23:00 07:00 15:00 23:00 Intake Total 240 ml Balance 240 ml Intake Oral 240 ml # Voids 1 # Bowel Movements 0 Result Diagram: 07/09/17 2300 07/09/17 2300 Imaging Last Impressions Upper Extremity CT 07/09/17 0000 Signed Impressions: Service Date/Time: June 23:24 - CONCLUSION: Marked interval progression of erosive arthropathy of the elbow along with development of large joint effusion. 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 Salvador Najera MD Lower Extremity CT 07/09/17 0000 Signed Impressions: Service Date/Time: June 23:16 - CONCLUSION: Severe osteoarthritic findings of the right hip. Salvador Najera MD Abdomen/Pelvis CT 07/09/17 0000 Signed Impressions: Service Date/Time: June 23:16 - CONCLUSION: No acute findings in the abdomen and pelvis. Severe right hip osteoarthritic findings again seen. Salvador Najera MD Procedures None Other Results Laboratory Tests Test 07/09/17 23:00 07/10/17 01:00 White Blood Count 15.7 TH/MM3 Red Blood Count 4.52 MIL/MM3 Hemoglobin 10.9 GM/DL Hematocrit 34.0 % Mean Corpuscular Volume 75.4 FL Mean Corpuscular Hemoglobin 24.1 PG Mean Corpuscular Hemoglobin Concent 31.9 % Red Cell Distribution Width 17.0 % Platelet Count 563 TH/MM3 Mean Platelet Volume 6.8 FL Neutrophils (%) (Auto) 80.6 % Lymphocytes (%) (Auto) 10.9 % Monocytes (%) (Auto) 7.9 % Eosinophils (%) (Auto) 0.4 % Basophils (%) (Auto) 0.2 % Neutrophils # (Auto) 12.6 TH/MM3 Lymphocytes # (Auto) 1.7 TH/MM3 Monocytes # (Auto) 1.2 TH/MM3 Eosinophils # (Auto) 0.1 TH/MM3 Basophils # (Auto) 0.0 TH/MM3 CBC Comment DIFF FINAL Differential Comment Prothrombin Time 12.1 SEC Prothromb Time International Ratio 1.2 RATIO Activated Partial Thromboplast Time 103.9 SEC Blood Urea Nitrogen 6 MG/DL Creatinine 0.52 MG/DL Random Glucose 81 MG/DL Calcium Level 9.1 MG/DL Sodium Level 139 MEQ/L Potassium Level 4.0 MEQ/L Chloride Level 107 MEQ/L Carbon Dioxide Level 25.2 MEQ/L Anion Gap 7 MEQ/L Estimat Glomerular Filtration Rate 194 ML/MIN Urine Color YELLOW Urine Turbidity HAZY Urine pH 7.5 Urine Specific [place] 1.009 Urine Protein NEG mg/dL Urine Glucose (UA) NEG mg/dL Urine Ketones NEG mg/dL Urine Occult Blood NEG Urine Nitrite NEG Urine Bilirubin NEG Urine Urobilinogen 2.0 MG/DL Urine Leukocyte Esterase SMALL Urine RBC 1 /hpf Urine WBC 7 /hpf Urine Renal Epithelial Cells 1 /hpf Urine Amorphous Sediment RARE Urine Mucus FEW /lpf Urine Yeast (Budding) MANY Microscopic Urinalysis Comment CULT NOT INDICATED Objective Remarks GENERAL: Young white male in no acute distress. HEENT: PERRLA, EOMI. No scleral icterus or conjunctival pallor. No lid lag or facial droop. CARDIOVASCULAR: Regular rate and rhythm. No obvious murmurs to auscultation. No chest tenderness to palpation. RESPIRATORY: No obvious rhonchi or wheezing. Clear to auscultation. Breath sounds equal bilaterally. GASTROINTESTINAL: Abdomen soft, non-tender, nondistended. BS normal. MUSCULOSKELETAL: Extremities without clubbing, cyanosis, or edema. No obvious deformities. Decreased ROM of LUE due to elbow pain/swelling/hemarthrosis. Right hip pain w/ movement. Pulses intact NEUROLOGICAL: Awake, alert and oriented x4. No focal neurologic deficits. Moving both upper and lower extremities spontaneously. A/P Assessment and Plan 1. 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 Adam as outpatient, off medications x5 days while in penitentiary as unable to obtain. Seen today by running specialist with diagnosis of Severe Hemophilia A with an inhibitor, recommended to receive NovoSeven alternated with FEIBA, avoid intravenous narcotics due to abuse history, iron studies for anemia, return to Hematology at [place] on discharge. 2. 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 Dr. Cummings consulted by ER physician, plan is to resume home regimen, increase frequency if needed. 3. Right Hip Pain: c/o right hip pain w/ movement. CT RLE w/ severe also arthritic findings, no evidence of hemarthrosis, images reviewed by me. Analgesics as needed, caution with previous history of narcotic dependence. 4. Leukocytosis: WBC 15.7. Afebrile. No obvious source of infection, likely reactive. Will monitor, repeat labs in am. 5. Tobacco Abuse: NicoDerm prn if needed. DVT Prophylaxis: Pharmacologic contraindication secondary to hemophilia w/ active bleeding. Seen in his bedroom patient wants to sign AMA Discharge Planning patient signing Adria Subramanian MD Jul 10, 2017 13:13
--- NOTE | 2017-07-10 13:15 | HHI.DS ---
Discharge Summary Admission Date Jul 10, 2017 at 01:04 Discharge Date: Jul 10, 2017 Admitting Diagnosis hemarthrosis left elbow; hemophilia A (1) Hemophilia A ICD Code: D66 - Hereditary factor VIII deficiency Diagnosis: Principal Status: Chronic (2) Hemarthrosis, left elbow ICD Code: M25.022 - Hemarthrosis, left elbow Diagnosis: Principal Status: Acute (3) Hip pain ICD Code: M25.559 - Pain in unspecified hip Diagnosis: Principal (4) Leukocytosis ICD Code: D72.829 - Elevated white blood cell count, unspecified Diagnosis: Principal Status: Acute (5) Tobacco abuse ICD Code: Z72.0 - Tobacco use Diagnosis: Principal Status: Chronic Procedures None Brief History - From Admission This is a 26-year-old male with PMH of Hemophilia A, Anxiety, Narcotic Dependence and Tobacco Abuse who was brought [facility] the [facility] Custody for c/o left elbow pain/swelling and right hip pain x5 days. Pt on Feiba 7500u IV q24h and alternates w/ NovoSeven 10mcg IV q24h. States that while he's been in snf, he's been off his medications x5 days, unable to obtain medications, now w/ left elbow and right hip pain. Denies injury/ trauma. On arrival, BP 142/74, HR 99, O2 sat 99% on RA. WBC 15.7, Hgb 10.9. Chemistry unremarkable. PTT 103.9, PT 12.1, INR 1.2. 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 CT RLE w/ severe osteoarthritic findings of the right hip. CT Abd/Pelvis w/ no acute findings. Dr. Cummings consulted by ER physician, recommended initiating home regimen. CBC/BMP: 07/09/17 2300 07/09/17 2300 Significant Findings Laboratory Tests Test 07/09/17 23:00 07/10/17 01:00 White Blood Count 15.7 TH/MM3 (4.0-11.0) Hemoglobin 10.9 GM/DL (13.0-17.0) Hematocrit 34.0 % (39.0-51.0) Mean Corpuscular Volume 75.4 FL (80.0-100.0) Mean Corpuscular Hemoglobin 24.1 PG (27.0-34.0) Mean Corpuscular Hemoglobin Concent 31.9 % (32.0-36.0) Platelet Count 563 TH/MM3 (150-450) Mean Platelet Volume 6.8 FL (7.0-11.0) Neutrophils (%) (Auto) 80.6 % (16.0-70.0) Neutrophils # (Auto) 12.6 TH/MM3 (1.8-7.7) Monocytes # (Auto) 1.2 TH/MM3 (0-0.9) Prothrombin Time 12.1 SEC (9.8-11.6) Activated Partial Thromboplast Time 103.9 SEC (24.3-30.1) Blood Urea Nitrogen 6 MG/DL (7-18) Creatinine 0.52 MG/DL (0.60-1.30) Urine Turbidity HAZY (CLEAR) Urine Leukocyte Esterase SMALL (NEG) Urine WBC 7 /hpf (0-5) Urine Mucus FEW /lpf (OCC) Urine Yeast (Budding) MANY (NONE) Imaging Last Impressions Upper Extremity CT 07/09/17 0000 Signed Impressions: Service Date/Time: June 23:24 - CONCLUSION: Marked interval progression of erosive arthropathy of the elbow along with development of large joint effusion. 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 Salvador Najera MD Lower Extremity CT 07/09/17 0000 Signed Impressions: Service Date/Time: June 23:16 - CONCLUSION: Severe osteoarthritic findings of the right hip. Salvador Najera MD Abdomen/Pelvis CT 07/09/17 0000 Signed Impressions: Service Date/Time: June 23:16 - CONCLUSION: No acute findings in the abdomen and pelvis. Severe right hip osteoarthritic findings again seen. Salvador Najera MD PE at Discharge GENERAL: Young white male in no acute distress. HEENT: PERRLA, EOMI. No scleral icterus or conjunctival pallor. No lid lag or facial droop. CARDIOVASCULAR: Regular rate and rhythm. No obvious murmurs to auscultation. No chest tenderness to palpation. RESPIRATORY: No obvious rhonchi or wheezing. Clear to auscultation. Breath sounds equal bilaterally. GASTROINTESTINAL: Abdomen soft, non-tender, nondistended. BS normal. MUSCULOSKELETAL: Extremities without clubbing, cyanosis, or edema. No obvious deformities. Decreased ROM of LUE due to elbow pain/swelling/hemarthrosis. Right hip pain w/ movement. Pulses intact NEUROLOGICAL: Awake, alert and oriented x4. No focal neurologic deficits. Moving both upper and lower extremities spontaneously. Hospital Course Admission note: This is a 26-year-old male with PMH of Hemophilia A, Anxiety, Narcotic Dependence and Tobacco Abuse who was brought [facility] the ER from [facility] Custody for c/o left elbow pain/swelling and right hip pain x5 days. Pt on Feiba 7500u IV q24h and alternates w/ NovoSeven 10mcg IV q24h. States that while he's been in snf, he's been off his medications x5 days, unable to obtain medications, now w/ left elbow and right hip pain. Denies injury/ trauma. On arrival, BP 142/74, HR 99, O2 sat 99% on RA. WBC 15.7, Hgb 10.9. Chemistry unremarkable. PTT 103.9, PT 12.1, INR 1.2. 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 CT RLE w/ severe osteoarthritic findings of the right hip. CT Abd/Pelvis w/ no acute findings. Dr. Cummings consulted by ER physician, recommended initiating home regimen. Seen in his bedroom in the presence of nurse Miss Meraz, the patient was seen by counterintelligence/humint specialist and recommended to re start his home medicines, after he receives his medicine he wants to sign AMA, permit my physical Exam but decided to go at this time. all possible consequences for his decision given and recommendations given, but he decides to sign AMA no barriers for discharge. patient alert and oriented x 4. Assessment and Plan 1. 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 Adam as outpatient, off medications x5 days while in snf as unable to obtain. Seen today by counterintelligence/humint specialist with diagnosis of Severe Hemophilia A with an inhibitor, recommended to receive NovoSeven alternated with FEIBA, avoid intravenous narcotics due to abuse history, iron studies for anemia, return to Hematology at [place] on discharge. 2. 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 Dr. Cummings consulted by ER physician, plan is to resume home regimen, increase frequency if needed. 3. Right Hip Pain: c/o right hip pain w/ movement. CT RLE w/ severe also arthritic findings, no evidence of hemarthrosis, images reviewed by me. Analgesics as needed, caution with previous history of narcotic dependence. 4. Leukocytosis: WBC 15.7. Afebrile. No obvious source of infection, likely reactive. Will monitor, repeat labs in am. 5. Tobacco Abuse: NicoDerm prn if needed. DVT Prophylaxis: Pharmacologic contraindication secondary to hemophilia w/ active bleeding. Seen in his bedroom patient wants to sign AMA Discharge Planning patient signing AMA Pt Condition on Discharge: Stable Discharge Disposition: Discharge Home Discharge Time: <= 30 minutes Adria Brooke MD Jul 10, 2017 13:15
[2017-07-11] MEDS ORDERED: ANTI-INHIBITOR COAGULANT COMPLEX 100 UNIT INJ IV SCH (06:00)
[2017-07-12] MEDS ORDERED: ANTI-INHIBITOR COAGULANT COMPLEX 100 UNIT INJ IV SCH (06:00)
[2017-07-13] MEDS ORDERED: FACTOR VIIA (RECOMB) 5 MG VIAL IV PUSH SCH
[2017-07-14] MEDS ORDERED: ANTI-INHIBITOR COAGULANT COMPLEX 100 UNIT INJ IV SCH (06:00)
[2017-07-15] MEDS ORDERED: FACTOR VIIA (RECOMB) 5 MG VIAL IV PUSH SCH
[2017-07-16] MEDS ORDERED: ANTI-INHIBITOR COAGULANT COMPLEX 100 UNIT INJ IV SCH (06:00)
[2017-07-17] MEDS ORDERED: FACTOR VIIA (RECOMB) 5 MG VIAL IV PUSH SCH
== END 2017-07-10 12:47 | disposition left against medical advice (07) | DRG 553 ==
LOC: NEPC 22:33 → NEDA 07-10 01:04 → EEVIPCON 07-10 01:04 → N06A 07-10 02:18
PROVIDERS: ADMIT Internal Medicine; ATTEND Internal Medicine
DX: M25.022 Hemarthrosis, left elbow (principal); D66 Hereditary factor VIII deficiency; F17.210 Nicotine dependence, cigarettes, uncomplicated; Z91.14 Patient's other noncompliance with medication regimen; M12.9 Arthropathy, unspecified
CPT/HCPCS: 73200; 73700; 74176; 80048; 81001; 85025; 85610; 85730; 86850; 86900; 86901; 86920; 86922; J2270; J2405; J7198